=== PATIENT | female | born 1970 | race African-American/Black ===

== ENCOUNTER 2020-06-02 13:50 | Outpatient (REF) | payer MEDICAID, SELFPAY ==
--- NOTE | 2020-06-02 13:56 | MM_ITS ---
EXAMINATION: MM DIAGNOSTIC DIGITAL BREAST TOMOSYNTHESIS, BILATERAL CLINICAL INFORMATION: Due for yearly exam. Initial imaging 2017 showed fibrocystic changes and asymmetric densities for follow-up. The lifetime risk of breast cancer based on the Tyrer-Cuzick Model is 15%. COMPARISON: Mammography: 12/02/2018, 05/30/2018, 11/26/2017, 10/29/2017 (BI-RADS 0); bilateral breast ultrasound 11/26/2017, left breast ultrasound 05/30/2018. TECHNIQUE: Digital breast tomosynthesis is performed in both the craniocaudal and mediolateral oblique views along with computer-aided detection (CAD). Synthesized 2D images are generated from the tomosynthesis. FINDINGS: There are scattered areas of fibroglandular density (ACR BI-RADS breast composition Category b). Parenchymal pattern is similar to prior studies. There is no interval mass or developing density. Nodular asymmetries mid 8:00 and posterior 9:00 left breast are stable. There is no developing density in either breast. No architectural abnormality. No abnormal calcifications. The axilla and skin contours are unremarkable. Results are provided to the patient at time of visit by the technologist. IMPRESSION: No significant changes from prior studies. ASSESSMENT: BI-RADS 2: Benign RECOMMENDATION: Routine annual mammography screening. This patient's information was entered into a reminder system with a target due date for their next mammogram.
== END 2020-06-02 13:51 | disposition home or self-care (01) ==
LOC: HO.MAMMO 13:50
PROVIDERS: PCP Hospitalist; Visit Provider Hospitalist
DX: R92.8 Other abnormal and inconclusive findings on diagnostic imaging of breast (principal)
CPT/HCPCS: 77062; 77066; 78013

== ENCOUNTER 2020-07-27 12:43 | Outpatient (REF) | payer MEDICAID, SELFPAY | END 2020-07-27 12:44 | disposition home or self-care (01) | LOC: HO.MAMMO 12:43 | PROVIDERS: PCP Hospitalist; Visit Provider Hospitalist | DX: Z13.89 Encounter for screening for other disorder (principal) ==

== ENCOUNTER 2020-12-10 20:46 | Emergency (ER) | payer MEDICAID, SELFPAY ==
--- NOTE | ~2020-12-10 | CT_ITS ---
EXAMINATION: CT HEAD WITHOUT CONTRAST CLINICAL INFORMATION: Seizure, fall, pain COMPARISON: 05/01/2020 TECHNIQUE: Contiguous axial imaging was performed from the skull base to vertex without intravenous administration of contrast. This CT examination was performed using dose optimization techniques as appropriate, variously including the following: *Automated exposure control *Adjustment of mA and/or kV according to patient size (this includes techniques or standardized protocols for targeted exams where dose is matched to indication/reason for exam; i.e. extremities or head) *Use of iterative reconstruction technique DLP: 663 mGy-cm FINDINGS: There is no evidence of acute intracranial hemorrhage or territorial infarction. No abnormal mass effect or midline shift is seen. Gomez to white matter differentiation is well preserved. No extra-axial fluid collections are identified. The ventricles are normal in size. There is no abnormal attenuation within the brain parenchyma. Left parietal scalp soft tissue swelling again seen.. There is hyperostosis frontalis. No acute sinusitis. CT/CT head/brain wo con IMPRESSION: No acute intracranial pathology.
[2020-12-10 20:56] VITALS: BP 124/84; BP 149/73; PULSE 98; PULSE 99; RESP 16; TEMP 37.2; O2SAT 98; O2SAT 99; BMI 34.4
--- NOTE | 2020-12-10 21:26 | ECG_ITS ---
Test Reason : SEIZURE Blood Pressure : / mmHG Vent. Rate : 094 BPM Atrial Rate : 094 BPM P-R Int : 170 ms QRS Dur : 078 ms QT Int : 362 ms P-R-T Axes : 070 035 049 degrees QTc Int : 452 ms Normal sinus rhythm Normal ECG When compared with ECG of 01-MAY-2020 15:19, No significant change was found Referred By: Gail Choi Electronically Signed By:MIREILLE CHICAS MD
--- NOTE | 2020-12-10 21:37 | ED_ITS ---
HPI - Fall General Chief Complaint: Fall Stated Complaint: FALL Time Seen by Provider: 12/10/20 21:26 Source: patient, EMS and other Mode of arrival: EMS History of Present Illness HPI Narrative: 50-year-old female arrives from [facility] via EMS after being found on the floor in the bathroom, responsive but unable to get up and was not noted to be calling for help. As per EMS patient is currently after cognitive baseline with a history of dementia although slight increase in tremor per care 1 staff. Patient is ambulatory at baseline and was recently started on ciprofloxacin for a UTI but then according to nursing staff states that she was switched to Augmentin approximately 2-3 days ago. On review of patient's medication list she is on multiple anti seizure medications and on speaking with the patient she denies pain anywhere except for mild pain at the back of her head, denies neck pain, chest pain, shortness of breath but states that she feels a little bit off. She is unable to verbalize whether or not this is how she feels after a seizure. Related Data Allergies Allergy/AdvReac Type Severity Reaction Status Date / Time chlorpromazine Allergy Intermediate HIVES Verified 12/10/20 21:05 [CHLORPROMAZINE] Review of Systems Review of Systems: Pertinent positives and negatives as stated in HPI 10 point review of systems is otherwise negative. PMFSH Past Medical History Source: nursing notes reviewed Medical History Diabetes Hyperlipidemia Hypothyroid Seizure disorder Unspecified dementia with behavioral disturbance Social History Social History Advance Directives: No Advance Directives Information Provided: No Physical Exam Vital Signs: Vital Signs: Last Vital Signs Temp 98.7 F 12/11/20 01:14 Pulse 81 12/11/20 01:14 Resp 16 12/11/20 01:14 BP 153/82 H 12/11/20 01:14 Pulse Ox 100 12/11/20 01:14 Body Mass Index 34.4 VITAL SIGNS: Reviewed. GENERAL: Chronically ill, well nourished, in no acute distress. HEAD: Normocephalic/atraumatic, EYES: PERRLA, EOMI intact without pain, no nystagmus NOSE: Nares patent bilateral OROPHARYNX: no oral lesions noted, posterior pharynx clear NECK: Supple, no adenopathy LUNGS: Normal breath sounds. No adventitious sounds or accessory muscle use. SpO2<98> CARDIOVASCULAR: Regular rate and rhythm without noted murmurs ABDOMEN: Soft, non-tender, non-distended with bowel sounds. NEUROLOGIC: Drowsy and oriented x 2. Strength and sensation to light touch were grossly intact x 4, no facial asymmetry, no pronator drift, cranial nerves 2-12 grossly intact. Course Course Course Narrative: 50-year-old female with history and clinical presentation most suggestive of post- ictal after seizure. Suspect that this may be due to drug drug interaction between the ciprofloxacin and multiple other medications. Will rule out metabolic or infectious etiologies. Review of all investigations negative for evidence of metabolic or infectious etiologies. Suspect that patient was postictal on arrival and mentation has improved during her stay here in the emergency department. Patient was ambu lated at bedside without difficulty and the Dilantin level is noted to be mildly elevated which may be a reflection of patient having been on ciprofloxacin. She is otherwise stable for discharge back to the facility with instructions that her Keppra level should be followed as it is still pending. MDM - Fall Lab Data Result diagrams: 12/10/20 21:47 12/10/20 23:26 Labs: Lab Results 12/10/20 12/10/20 12/10/20 Range/Units 21:47 23:26 23:52 WBC 5.7 (4.8-10.8) X10*3/uL RBC 3.82 L (4.20-5.50) X10*6/uL Hgb 10.6 L (12.0-16.0) g/dl Hct 33.6 L (37-47) % MCV 88.0 (80-98) fL MCH 27.7 (27.0-33.0) pg MCHC 31.5 (31.0-35.0) g/dl RDW 14.6 (11.0-16.0) % Plt Count 230 (160-400) X10*3/uL MPV 10.3 (9.4-12.3) fL Immature Gran % (Auto) 0.2 (0.0-0.4) % Neut % (Auto) 65.1 (45-73) % Lymph % (Auto) 27.6 (20-40) % Edmonson % (Auto) 6.5 (2-11) % Eos % (Auto) 0.2 (0-4) % Baso % (Auto) 0.4 (0-2) % Lymph # (Auto) 1.6 (1.2-4.9) X10*3/uL Edmonson # (Auto) 0.4 (0.1-1.2) X10*3/uL Eos # (Auto) 0.0 (0.0-0.4) X10*3/uL Baso # (Auto) 0.0 (0.0-0.2) X10*3/uL Abs Immat Gran (auto) 0.01 (0.00-0.03) X10*3/uL Absolute Neuts (auto) 3.7 (2.0-8.3) X10*3/uL Absolute Nucleated RBC 0.000 (0.0-0.012) X10*3/uL Nucleated RBC % (auto) 0.0 (0.0-0.2) /100WBC Sodium 139 (135-145) mmol/L Potassium 5.3 H (3.3-5.1) mmol/L Chloride 103 (96-108) mmol/L Carbon Dioxide 26 (22-29) mmol/L Anion Gap 15 (12-20) BUN 24 H (9-16) mg/dL Creatinine 0.88 (0.5-1.4) mg/dL Estim Creat Clear Calc 98.0 Estimated GFR > 60 Random Glucose 144 H (60-115) mg/dL Calcium 9.5 (8.4-10.2) mg/dL Total Bilirubin < 0.2 (0.0-1.0) mg/dL AST 15 (5-31) U/L ALT 15 (0-31) U/L Alkaline Phosphatase 188 H (39-117) U/L Total Protein 7.8 (6.5-8.0) g/dL Albumin 3.9 (3.5-5.0) g/dL TSH 1.86 (0.32-4.0) uIU/mL Urine Color STRAW Urine Appearance CLEAR Urine pH 5.5 (5.0-8.0) Ur Specific Decker 1.025 (1.005-1.025) Urine Protein NEG (NEG-TRACE) MG/DL Urine Glucose (UA) NEG (NEG) MG/DL Urine Ketones NEG (NEG) MG/DL Urine Blood 1+ H (NEG) Urine Nitrite NEG (NEG) Ur Leukocyte Esterase NEG (NEG) Urine RBC 1-4 (0) /HPF Urine WBC 1-4 (0-4) /HPF Ur Squamous Epith Cells TRACE /LPF Urine Bacteria NONE /LPF Urine Mucus TRACE /LPF Phenytoin 20.9 H (10.0-20.0) ug/mL ECG Data Attestation: I personally reviewed and interpreted this ECG as follows: Prior ECG tracings: available for review (05/01/2020 no acute changes on comparison) Interpretation: Normal sinus rhythm, HR-94, no evidence of acute ischemia, NE/QRS/QTC are within normal limits. Discharge Plan Discharge Clinical Impression: Seizure, Adverse drug interaction Patient Disposition: er [facility] Instructions: Nonepileptic Seizures (ED) Additional Instructions: 1. Resume all home medications as prescribed. 2. Follow-up Keppra levels as they are still pending. 3. Recommend repeating Dilantin levels 4. Re-evaluation by primary care physician within 24 hours. Return to the emergency department for any acute worsening of symptoms. Referrals: Roby Roth DO [Primary Care Provider] - 2 days (Re-evaluation after suspected seizure activity no evidence to suggest metabolic or infectious etiologies. Dilantin level was mildly elevated and Keppra level is pending.)
[2020-12-10 21:54] LABS: MANUAL DIFF FLAG NO
[2020-12-10 21:55] LABS: Basophils Percent Auto 0.4 % (0-2); Eosinophils Percent Auto 0.2 % (0-4); Hematocrit 33.6 % (37-47); Hemoglobin 10.6 g/dl (12.0-16.0); Imm Gran Abs Auto 0.01 X10*3/uL (0.00-0.03); Imm Gran Pct Auto 0.2 % (0.0-0.4); Lymphocytes Absolute Auto 1.6 X10*3/uL (1.2-4.9); Lymphocytes Percent Auto 27.6 % (20-40); Mean Corpuscular HGB Conc 31.5 g/dl (31.0-35.0); Mean Corpuscular Hemoglobin 27.7 pg (27.0-33.0); Mean Platelet Volume 10.3 fL (9.4-12.3); Monocytes Absolute Auto 0.4 X10*3/uL (0.1-1.2); Monocytes Percent Auto 6.5 % (2-11); Neutrophils Absolute Auto 3.7 X10*3/uL (2.0-8.3); Neutrophils Percent Auto 65.1 % (45-73); Platelet Count 230 X10*3/uL (160-400); Red Blood Count 3.82 X10*6/uL (4.20-5.50); Red Cell Distribution Width 14.6 % (11.0-16.0); White Blood Count 5.7 X10*3/uL (4.8-10.8)
--- NOTE | 2020-12-10 23:01 | PC.NURSE ---
spoke with rn at [facility]. pt was found to be confused on the floor of the bathroom. Had been feeling off all day. arrived to ED in a drowsy, but arousable state.
[2020-12-10 23:02] VITALS: BP 126/71; PULSE 90; RESP 14; O2SAT 96
[2020-12-10 23:27] VITALS: BP 134/77; PULSE 90; RESP 14; O2SAT 99
--- NOTE | 2020-12-10 23:29 | PC.NURSE ---
Report taken from Maura, this RN resuming care. Pt found laying in bed, appears drowsy, having difficulty staying awake. Maura at bedside trying to obtain ordered labs, pt uncooperative with bloodwork, stating You guys are just using me for practice! This isn't fair. This RN explaing to pt that she has every right to refuse blood work if she does not want it. Pt then replied, I'm here for my health so do it. Labs obtained and sent. VSS at this time, awaiting lab work. Continue to monitor.
[2020-12-10 23:32] VITALS: BP 134/77; PULSE 88; RESP 15; TEMP 37.2; O2SAT 100
[2020-12-10 23:53] VITALS: TEMP 36.6
--- NOTE | 2020-12-10 23:57 | PC.NURSE ---
UA obtained via straight cath and sent for analysis.
[2020-12-11 00:02] LABS: Alanine Aminotransferase 15 U/L (0-31); Albumin Level 3.9 g/dL (3.5-5.0); Alkaline Phosphatase 188 U/L (39-117); Anion Gap 15 (12-20); Aspartate Amino Transferase 15 U/L (5-31); Bilirubin Total < 0.2 mg/dL (0.0-1.0); Blood Urea Nitrogen 24 mg/dL (9-16); Calcium 9.5 mg/dL (8.4-10.2); Carbon Dioxide 26 mmol/L (22-29); Chloride 103 mmol/L (96-108); Estimated Glomerular Filt Rate > 60; Glucose Random 144 mg/dL (60-115); Potassium 5.3 mmol/L (3.3-5.1); Sodium 139 mmol/L (135-145); Total Protein 7.8 g/dL (6.5-8.0)
[2020-12-11 00:05] LABS: Phenytoin Dilantin 20.9 ug/mL (10.0-20.0)
[2020-12-11 00:16] LABS: Glucose Urine UA NEG (NEG); Leukocyte Esterase Urine NEG (NEG); Nitrite Urine NEG (NEG); PH 5.5 (5.0-8.0); Specific Gravity - Urine 1.025 (1.005-1.025); Urine Blood 1+ (NEG); Urine Ketones NEG (NEG); Urine Protein NEG (NEG-TRACE)
[2020-12-11 00:19] LABS: Appearance Urine CLEAR; Color Urine STRAW
--- NOTE | 2020-12-11 00:19 | PC.NURSE ---
Pt requesting food/drink, provided with PO intake per request.
[2020-12-11 00:21] LABS: TSH reflex Free T4 1.86 uIU/mL (0.32-4.0)
[2020-12-11 00:25] LABS: Mucus Urine TRACE /LPF; Squamous Epithelial Cell Urine TRACE /LPF
[2020-12-11 01:14] VITALS: BP 153/82; PULSE 81; RESP 16; TEMP 37.1; O2SAT 100
--- NOTE | 2020-12-11 01:14 | PC.NURSE ---
Per MD request, pt ambulating in the halls with a two assist. Pts gait noted to be unsteady but pt ambulating without assistance. Plan to return to [facility] via ambulance.
--- NOTE | 2020-12-11 01:34 | PC.NURSE ---
Nurse to Nurse report given to [facility] regarding pts condition and plan to return.
--- NOTE | 2020-12-11 01:48 | PC.NURSE ---
EMS at bedside preparing pt for transport.
[2020-12-14 14:07] LABS: Levetiracetam Keppra 29.7 mcg/mL (12.0-46.0)
== END 2020-12-11 01:49 | disposition skilled nursing facility (03) ==
PROVIDERS: Emergency Provider Student in an Organized Health Care Education/Training Program; PCP Hospitalist
DX: R56.9 Unspecified convulsions (principal); T50.995A Adverse effect of other drugs, medicaments and biological substances, initial encounter; Y92.122 Bedroom in nursing home as the place of occurrence of the external cause; E11.9 Type 2 diabetes mellitus without complications; E78.5 Hyperlipidemia, unspecified; G30.9 Alzheimer's disease, unspecified; F02.80 Dementia in other diseases classified elsewhere, unspecified severity, without behavioral disturbance, psychotic disturbance, mood disturbance, and anxiety; Z79.899 Other long term (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
CPT/HCPCS: 36415; 51701; 70450; 80053; 80177; 80185; 81001; 84443; 85025; 93005; 99285

== ENCOUNTER 2021-01-24 13:45 | Emergency (ER) | payer MEDICAID, SELFPAY ==
--- NOTE | ~2021-01-24 | XR_ITS ---
EXAMINATION: XR CHEST CLINICAL INFORMATION: Seizure, fall, AMS COMPARISON: None TECHNIQUE: 2 views of the chest were obtained. FINDINGS: No significant abnormality is noted involving the heart, lungs, mediastinum, bony thorax or soft tissues. XR/XR chest 2V IMPRESSION: Unremarkable chest examination.
--- NOTE | ~2021-01-24 | CT_ITS ---
EXAMINATION: CT HEAD WITHOUT CONTRAST CLINICAL INFORMATION: Acute mental status change. Seizure. COMPARISON: Previous head CT scans most recent November 2020 TECHNIQUE: Contiguous axial imaging was performed from the skull base to vertex without intravenous administration of contrast. This CT examination was performed using dose optimization techniques as appropriate, variously including the following: *Automated exposure control *Adjustment of mA and/or kV according to patient size (this includes techniques or standardized protocols for targeted exams where dose is matched to indication/reason for exam; i.e. extremities or head) *Use of iterative reconstruction technique DLP: 666 mGy-cm FINDINGS: There is no evidence of an extra-axial collection. There is no evidence of intra-axial or extra-axial hemorrhage. The ventricles and extra-axial CSF spaces are appropriate. Gomez-white matter differentiation is normal. No mass, mass effect or infarct is seen. There is hyperostosis frontalis. There is soft tissue thickening over the left parietal bone that is unchanged. Bony structures are otherwise unremarkable. No skull fracture is seen. The mastoid air cells and middle ears and paranasal sinuses are clear. CT/CT head/brain wo con IMPRESSION: No acute intracranial pathology.
--- NOTE | ~2021-01-24 | CT_ITS ---
EXAMINATION: CT CERVICAL SPINE WITHOUT CONTRAST CLINICAL INFORMATION: Acute mental status change. Seizure. COMPARISON: Previous CT of the cervical spine April 2020 TECHNIQUE: Axial images through the cervical spine without contrast. Sagittal and pelvis workstation. Gomez per centimeter. This CT examination was performed using dose optimization techniques as appropriate, variously including the following: *Automated exposure control *Adjustment of mA and/or kV according to patient size (this includes techniques or standardized protocols for targeted exams where dose is matched to indication/reason for exam; i.e. extremities or head) *Use of iterative reconstruction technique DLP: 666 mGy-cm FINDINGS: Bone alignment is normal. No fracture or dislocation is seen. There is evidence of mild degenerative spondylosis from C4-C5 to C6-C7. Disc spaces are normal. Soft tissues are normal. There is shotty cervical lymphadenopathy. The visualized lung apices are either. CT/CT cervical spine wo con IMPRESSION: No fracture or dislocation seen. Mild degenerative changes.
[2021-01-24 13:57] VITALS: BP 163/75; PULSE 103; RESP 18; TEMP 37.1; O2SAT 97; BMI 25.0
--- NOTE | 2021-01-24 14:02 | ECG_ITS ---
Test Reason : SEIZURE Blood Pressure : / mmHG Vent. Rate : 093 BPM Atrial Rate : 093 BPM P-R Int : 170 ms QRS Dur : 074 ms QT Int : 370 ms P-R-T Axes : 076 012 041 degrees QTc Int : 460 ms Normal sinus rhythm Normal ECG When compared with ECG of 10-DEC-2020 22:44, No significant change was found Referred By: Hope Santiago Electronically Signed By:MIREILLE CHICAS MD
--- NOTE | 2021-01-24 14:26 | ED.SEIZURE ---
HPI - Seizure General Chief Complaint: Seizure Stated Complaint: FALL, NO INJURIES Time Seen by Provider: 01/24/21 13:55 Source: patient, EMS and other ([facility]) Mode of arrival: EMS Limitations: altered mental status History of Present Illness HPI Narrative: 50-year-old female coming from [facility] with a past medical history of chief subarachnoid hemorrhage, TBI, dementia, seizure disorder, mood disorder, anxiety, diabetes, hypertension, hyperlipidemia, hypothyroidism here after reports of witnessed seizure at longterm with fall hitting the back of her head. Per nursing this occurred sometime this morning. He also told me the patient is at her baseline. She is not on any anticoagulation. She is on Keppra, phenytoin and oxcarbazepine which are dispensed by nursing and the patient has been taking. No recent illnesses Seizure History: Yes Place: Home Related Data Allergies Allergy/AdvReac Type Severity Reaction Status Date / Time chlorpromazine Allergy Intermediate HIVES Verified 12/10/20 21:05 [CHLORPROMAZINE] Review of Systems Review of Systems: Yes Unobtainable due to mental status (unable to obtain d/t baseline confusion) Neurologic: Denies Abnormal speech present [facility] Past Medical History Attestation statement: The following information was validated with the patient. Source: old records reviewed and nursing notes reviewed Medical History Diabetes Hyperlipidemia Hypothyroid Seizure disorder Unspecified dementia with behavioral disturbance Social History Social History Alcohol intake: never Smoked in Last 30 Days: No Use of substances other than those prescribed or required for medical reasons: No Advance Directives: No Advance Directives Information Provided: Yes Patient : No Physical Exam Vital Signs: Vital Signs: Last Vital Signs Temp 98.7 F 01/24/21 13:57 Pulse 103 H 01/24/21 13:57 Resp 18 01/24/21 13:57 BP 163/75 H 01/24/21 13:57 Pulse Ox 97 01/24/21 13:57 Body Mass Index 25.0 Const: General: comfortable, alert and awake Orientation/consciousness: oriented to person Limitations: altered mental status (Limited due to confusion) HENMT: Head: Yes normal to inspection Ears: hearing grossly normal bilaterally General nose exam: Normal external nose present Face and sinus: Yes normal facial exam Mouth: Normal oral and palatal mucosa present Throat: Yes posterior oropharynx normal Eyes: General: appearance normal, both eyes and all related structures Pupils: Equal, round and reactive pupils present Neck: Other: No midline tenderness, step-offs or deformities Neck: Yes normal visual inspection, Yes full ROM and Yes no lymphadenopathy Chest: Chest palpation & inspection: normal inspection of the chest Resp: Effort & Inspection: normal respiratory effort Auscultation: clear to auscultation bilaterally Cardio: Rate: regular rate Rhythm: regular rhythm Peripheral pulses: Peripheral pulses 2+ throughout GI: Inspection: Yes normal to inspection Palpation (GI): Soft to palpation and nontender Auscultation: normal bowel sounds Back/Spine/Pelvis: Thoracic/Lumbar Spine: thoracic and lumbar spine normal to inspection Skin: General skin exam: no rashes or lesions noted Neuro: General: oriented to person, tone normal, moves all extremities and normal sensation to monofilament Cranial nerves: Yes Equal, round and reactive pupils present Speech: No Abnormal speech present Extrem: General: Yes normal to inspection, Yes no pedal edema and Yes no calf tenderness Course Course Course Narrative: 50-year-old female here after witnessed seizure with fall and head strike. Per staff patient is at her baseline confusion. On my assessment she is awake, alert and oriented to person only. She has no overt neuro deficits outside of confusion. No physical complaints. Hemodynamically stable. Per nursing patient is sent for CT of head. Will check labs, drug levels, UA, EKG, CXR and CT head/neck. 1530-Imaging pending. Refusing all labs. Will discuss with PCP once imaging back. 1610-imaging all unremarkable. Patient refusing labs and urine collection. Will discuss with primary care doctor as she is a resident at [facility]. 1645-discussed with Dr. kamara. Does not need labs. Will accept transfer back. History epilepsy on multiple anti epileptics intermittently compliant with medication. Will follow with levels there. MDM - Seizure Differential Diagnosis Differential diagnosis: Likely generalized seizure and epileptic seizure Medical Records Attestation: I reviewed the patient's medical records. Lab Data Attestation: I reviewed the patient's lab results. Imaging Data Chest x-ray: Attestation: I personally reviewed and interpreted this imaging study as follows: Radiologist's impression: [address] [place], [place] [id number] ReportSigned Patient: Katelyn PeraltaMR#: [id number]: [id number]:[id number]/Sex: 50 / FADM Date: 01/24/21Loc: HO.EDAttending Dr: Ordering Physician: NIMESH STEEL NP Date of Service: 01/24/21 Procedure(s): XR chest 2V Accession Number(s): [id number] cc: NIMESH STEEL NP~ EXAMINATION: XR CHEST CLINICAL INFORMATION: Seizure, fall, AMS COMPARISON: None TECHNIQUE: 2 views of the chest were obtained. FINDINGS: No significant abnormality is noted involving the heart, lungs, mediastinum, bony thorax or soft tissues. XR/XR chest 2V IMPRESSION: Unremarkable chest examination. CT scan - head: Attestation: I personally reviewed and interpreted this imaging study as follows: Radiologist's impression: EXAMINATION: CT HEAD WITHOUT CONTRAST CLINICAL INFORMATION: Acute mental status change. Seizure. COMPARISON: Previous head CT scans most recent November 2020 TECHNIQUE: Contiguous axial imaging was performed from the skull base to vertex without intravenous administration of contrast. This CT examination was performed using dose optimization techniques as appropriate, variously including the following: *Automated exposure control *Adjustment of mA and/or kV according to patient size (this includes techniques or standardized protocols for targeted exams where dose is matched to indication/reason for exam; i.e. extremities or head) *Use of iterative reconstruction technique DLP: 666 mGy-cm FINDINGS: There is no evidence of an extra-axial collection. There is no evidence of intra-axial or extra-axial hemorrhage. The ventricles and extra-axial CSF spaces are appropriate. Gomez-white matter differentiation is normal. No mass, mass effect or infarct is seen. There is hyperostosis frontalis. There is soft tissue thickening over the left parietal bone that is unchanged. Bony structures are otherwise unremarkable. No skull fracture is seen. The mastoid air cells and middle ears and paranasal sinuses are clear. CT/CT head/brain wo con IMPRESSION: No acute intracranial pathology. Ct cervical spine: Attestation: I personally reviewed and interpreted this imaging study as follows: Radiologist's impression: EXAMINATION: CT CERVICAL SPINE WITHOUT CONTRAST CLINICAL INFORMATION: Acute mental status change. Seizure. COMPARISON: Previous CT of the cervical spine April 2020 TECHNIQUE: Axial images through the cervical spine without contrast. Sagittal and pelvis workstation. Gomez per centimeter. This CT examination was performed using dose optimization techniques as appropriate, variously including the following: *Automated exposure control *Adjustment of mA and/or kV according to patient size (this includes techniques or standardized protocols for targeted exams where dose is matched to indication/reason for exam; i.e. extremities or head) *Use of iterative reconstruction technique DLP: 666 mGy-cm FINDINGS: Bone alignment is normal. No fracture or dislocation is seen. There is evidence of mild degenerative spondylosis from C4-C5 to C6-C7. Disc spaces are normal. Soft tissues are normal. There is shotty cervical lymphadenopathy. The visualized lung apices are either. CT/CT cervical spine wo con IMPRESSION: No fracture or dislocation seen. Mild degenerative changes. ECG Data Attestation: I personally reviewed and interpreted this ECG as follows: ECG interpretation date: 01/24/21 ECG interpretation time: 14:25 Interpretation: Normal sinus rhythm with a rate of 93, normal PA, normal QRS, normal QT Discharge Plan Discharge Clinical Impression: Epileptic seizure Patient Disposition: [facility] Instructions: Epilepsy (ED) Interventions: ED Discharge Assessment Last Done: 01/24/21 16:30 Discharge Date/Time: 01/24/21 16:53
--- NOTE | 2021-01-24 15:06 | PC.NURSE ---
PT REFUSING BLOOD DRAW AT THIS TIME, STATING THAT THERE HAS BEEN TOO MUCH BLOOD TAKEN ALREADY. NO BLOOD DRAW HAS BEEN DONE IN THE ER TODAY.
--- NOTE | 2021-01-24 15:23 | PC.NURSE ---
pt continues to refuse labs-registered dental assistant rda aware
--- NOTE | 2021-01-24 16:47 | PC.NURSE ---
attempt to call [facility], states they are busy on other line and will call back for report
== END 2021-01-24 16:53 | disposition skilled nursing facility (03) ==
PROVIDERS: Emergency Provider Emergency Medicine; PCP Hospitalist
DX: G40.909 Epilepsy, unspecified, not intractable, without status epilepticus (principal); E11.9 Type 2 diabetes mellitus without complications; I10 Essential (primary) hypertension; E78.5 Hyperlipidemia, unspecified; F03.91 Unspecified dementia, unspecified severity, with behavioral disturbance; Z87.820 Personal history of traumatic brain injury; Z79.899 Other long term (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
CPT/HCPCS: 70450; 71046; 72125; 93005; 99284

== ENCOUNTER 2021-03-15 12:52 | Outpatient (REF) | payer MEDICAID, SELFPAY ==
--- NOTE | ~2021-03-15 | MM_ITS ---
EXAMINATION: MM DIAGNOSTIC DIGITAL BREAST TOMOSYNTHESIS, BILATERAL US DIAGNOSTIC ULTRASOUND BREAST, RIGHT CLINICAL INFORMATION: Intermittent right breast pain. Due for yearly. Family history breast cancer, mother. The lifetime risk of breast cancer based on the Tyrer-Cuzick Model is 13%. COMPARISON: Mammography: 06/02/2020, 12/02/2018, 05/30/2018, 11/26/2017, 10/29/2017 TECHNIQUE: Digital breast tomosynthesis is performed in both the craniocaudal and mediolateral oblique views along with computer-aided detection (CAD). Synthesized 2D images are generated from the tomosynthesis. Additional right MLO and spot right MLO views are obtained. Ultrasound right breast is targeted to the 4 quadrants. Grayscale imaging and color Doppler are performed without and with harmonics. FINDINGS: There are scattered areas of fibroglandular density (ACR BI-RADS breast composition Category b). Parenchymal pattern is similar to prior exams. No developing density or interval mass or architectural abnormality. Nodular asymmetry mid and posterior medial left breast are stable from prior studies. There is a small stable circumscribed nodule mid outer right breast corresponding to an intramammary node on ultrasound. There are no abnormal calcifications. The skin contours are smooth. No skin thickening or coarsening of the Tarik's ligaments. Ultrasound right breast demonstrates no cystic or solid mass or architectural abnormality. There is no focal duct ectasia, skin thickening, or edema tracking in the soft tissue planes. Incidental intramammary node present mid 8:00 right breast under 1 cm. Results are discussed with the patient at time of visit. MM/MM tomosynthesis diagnostic BI IMPRESSION: No mammographic or ultrasound evidence of malignancy or inflammatory changes. ASSESSMENT: BI-RADS 2: Benign RECOMMENDATION: 1. Patient's breast pain should be managed based on the clinical impression. 2. Otherwise, routine annual screening mammography. This patient's information was entered into a reminder system with a target due date for their next mammogram.
== END 2021-03-15 12:53 | disposition home or self-care (01) ==
LOC: HO.MAMMO 12:52
PROVIDERS: Visit Provider Hospitalist
DX: N64.4 Mastodynia (principal)
CPT/HCPCS: 76642; 77062; 77066

== ENCOUNTER 2021-03-19 14:01 | Inpatient (IN) | payer MEDICAID, SELFPAY ==
[2021-03-19] VITALS (7 sets, daily range): BP systolic 116–146; BP diastolic 55–78; PULSE 72–80; RESP 15–21; TEMP 34.4–35.9; O2SAT 96–99; BMI 35.9
[2021-03-19 14:28] LABS: Glucose, Whole Blood 107 mg/dL (60-115)
--- NOTE | 2021-03-19 14:33 | PC.NURSE ---
Rectal temp low. Bear hugger applied to pt. Other VSS at this time.
--- NOTE | 2021-03-19 15:49 | ED_ITS ---
HPI - General Adult General Chief complaint: Altered Mental Status Stated complaint: UTI ON 03/17 NO AMS Time Seen by Provider: 03/19/21 14:48 Source: patient and EMS Mode of arrival: EMS Limitations: no limitations History of Present Illness HPI narrative: Patient's history of traumatic brain injury anxiety mood disorder frequent hypothermia secondary to COVID infection came from custodial for feeling weak and chills and lethargy for last 3 days patient was treated with Macrobid for UTI, UA done on 03/15 showed ESBL E coli sensitive to Macrobid on arrival patient's rectal temperature was 94 degrees patient does have hypothermia often secondary to COVID infection Related Data Allergies Allergy/AdvReac Type Severity Reaction Status Date / Time chlorpromazine Allergy Intermediate HIVES Verified 12/10/20 21:05 [CHLORPROMAZINE] Review of Systems Review of Systems: Constitutional : No Weight loss, No Fever, + Chills ENT/Mouth : No sore throat, No Rhinorrhea Eyes: No Eye Pain, No Swelling Cardiovascular : No Chest Pain, no palpitations Respiratory : No Cough, No Sputum, no shortness of breath Gastrointestinal : no Nausea, No Vomiting, No Diarrhea, No abdominal Pain, no black stools Genitourinary : No Dysuria, +Urinary Frequency Musculoskeletal : No joint pain, No Myalgias, No Joint Swelling Skin : No Skin Lesions, No rash Neuro : +Weakness, No Numbness, No Dizziness, No Headache Psych : No Anxiety/Panic, No Depression Heme/Lymph: No Bruising, No Lymphadenopathy Endocrine : No Polyuria, No Polydipsia All other systems reviewed and are negative [facility] Past Medical History Medical History Diabetes Hyperlipidemia Hypothyroid Seizure disorder Unspecified dementia with behavioral disturbance Social History Social History Alcohol intake: never Advance Directives: Yes Advance Directives Information Provided: Yes Advance Directives on File: No Patient : No Physical Exam Vital Signs: Vital Signs: Last Vital Signs Temp 96.6 F L 03/19/21 19:25 Pulse 76 03/19/21 20:52 Resp 16 03/19/21 20:52 BP 125/61 03/19/21 20:52 Pulse Ox 96 03/19/21 20:52 Body Mass Index 35.9 Appearance: Alert. Oriented X3. Anxious Eyes: PERRLA, No Nystagmus ENT: Pharynx normal. Oral Mucosa moist Neck: Normal inspection. Neck supple. CVS: Normal heart rate and rhythm. Pulses normal. Respiratory: No respiratory distress. Equal air entry bilateral, no wheezing/rales/rhonchi Abdomen: Soft and nontender. Bowel sounds are present, no mass palpable, no CVA tenderness Skin: Skin warm and dry. Normal skin color. Normal skin turgor. Extremities: No lower extremity edema. No calf tenderness Neuro: Oriented X 3. No motor deficit. Medical Decision Making MDM Narrative Medical decision making narrative: Patient with history of hypothermia secondary to COVID-19 infection came for increased lethargic and chills noticed to have UTI with E coli ESBL positive in the custodial labs patient refused to get the urine sample in the ER. Started on ertapenem. Received IV fluids , patient hypothermia is chronic secondary to COVID-19 infection. Patient's potassium was 8.4 on arrival 2nd to sample hemolyzed repeat potassium was 5.9 creatinine is 0.94 . No EKG changes of hyperkalemia will give her calcium gluconate IV admit for IV antibiotics patient had COVID-19 test done in the custodial today was negative Lab Data Lab results reviewed: Yes I reviewed the patient's lab results. Result diagrams: 03/19/21 18:12 03/19/21 21:10 Labs: Lab Results 03/19/21 03/19/21 03/19/21 Range/Units 14:23 15:42 18:12 WBC 6.4 (4.8-10.8) X10*3/uL RBC 3.20 L (4.20-5.50) X10*6/uL Hgb 9.0 L (12.0-16.0) g/dl Hct 28.4 L (37-47) % MCV 88.8 (80-98) fL MCH 28.1 (27.0-33.0) pg MCHC 31.7 (31.0-35.0) g/dl RDW 15.1 (11.0-16.0) % Plt Count 182 (160-400) X10*3/uL MPV 10.7 (9.4-12.3) fL Immature Gran % (Auto) 0.3 (0.0-0.4) % Neut % (Auto) 76.9 H (45-73) % Lymph % (Auto) 12.9 L (20-40) % White % (Auto) 9.5 (2-11) % Eos % (Auto) 0.2 (0-4) % Baso % (Auto) 0.2 (0-2) % Lymph # (Auto) 0.8 L (1.2-4.9) X10*3/uL White # (Auto) 0.6 (0.1-1.2) X10*3/uL Eos # (Auto) 0.0 (0.0-0.4) X10*3/uL Baso # (Auto) 0.0 (0.0-0.2) X10*3/uL Abs Immat Gran (auto) 0.02 (0.00-0.03) X10*3/uL Absolute Neuts (auto) 4.9 (2.0-8.3) X10*3/uL Absolute Nucleated RBC 0.000 (0.0-0.012) X10*3/uL Nucleated RBC % (auto) 0.0 (0.0-0.2) /100WBC Sodium (135-145) mmol/L Potassium (3.3-5.1) mmol/L Chloride (96-108) mmol/L Carbon Dioxide (22-29) mmol/L Anion Gap (12-20) BUN (9-16) mg/dL Creatinine (0.5-1.4) mg/dL Estim Creat Clear Calc Estimated GFR POC Glucose 107 (60-115) mg/dL Random Glucose (60-115) mg/dL Lactic Acid (0.5-2.0) mmol/L Lactic Acid Fup @ 2Hr (0.5-2.0) mmol/L Calcium (8.4-10.2) mg/dL Total Bilirubin (0.0-1.0) mg/dL Direct Bilirubin (0.0-0.5) mg/dL AST (5-31) U/L ALT (0-31) U/L Alkaline Phosphatase (39-117) U/L Total Protein (6.5-8.0) g/dL Albumin (3.5-5.0) g/dL COVID-19 (ELIZ) Negative (Negative) COVID-19 Clin Com See Note 03/19/21 03/19/21 03/19/21 Range/Units 18:12 18:12 18:12 WBC (4.8-10.8) X10*3/uL RBC (4.20-5.50) X10*6/uL Hgb (12.0-16.0) g/dl Hct (37-47) % MCV (80-98) fL MCH (27.0-33.0) pg MCHC (31.0-35.0) g/dl RDW (11.0-16.0) % Plt Count (160-400) X10*3/uL MPV (9.4-12.3) fL Immature Gran % (Auto) (0.0-0.4) % Neut % (Auto) (45-73) % Lymph % (Auto) (20-40) % White % (Auto) (2-11) % Eos % (Auto) (0-4) % Baso % (Auto) (0-2) % Lymph # (Auto) (1.2-4.9) X10*3/uL White # (Auto) (0.1-1.2) X10*3/uL Eos # (Auto) (0.0-0.4) X10*3/uL Baso # (Auto) (0.0-0.2) X10*3/uL Abs Immat Gran (auto) (0.00-0.03) X10*3/uL Absolute Neuts (auto) (2.0-8.3) X10*3/uL Absolute Nucleated RBC (0.0-0.012) X10*3/uL Nucleated RBC % (auto) (0.0-0.2) /100WBC Sodium 140 (135-145) mmol/L Potassium 8.4 H* D (3.3-5.1) mmol/L Chloride 109 H (96-108) mmol/L Carbon Dioxide 19 L (22-29) mmol/L Anion Gap 20 (12-20) BUN 24 H (9-16) mg/dL Creatinine 0.96 (0.5-1.4) mg/dL Estim Creat Clear Calc 91.8 Estimated GFR > 60 POC Glucose (60-115) mg/dL Random Glucose 66 D (60-115) mg/dL Lactic Acid 2.4 H* (0.5-2.0) mmol/L Lactic Acid Fup @ 2Hr (0.5-2.0) mmol/L Calcium 9.3 (8.4-10.2) mg/dL Total Bilirubin 0.2 (0.0-1.0) mg/dL Direct Bilirubin < 0.2 (0.0-0.5) mg/dL AST 37 H D (5-31) U/L ALT 21 (0-31) U/L Alkaline Phosphatase 195 H (39-117) U/L Total Protein 8.7 H (6.5-8.0) g/dL Albumin 4.0 (3.5-5.0) g/dL COVID-19 (ELIZ) (Negative) COVID-19 Clin Com 03/19/21 03/19/21 03/19/21 Range/Units 19:30 19:38 19:47 WBC (4.8-10.8) X10*3/uL RBC (4.20-5.50) X10*6/uL Hgb (12.0-16.0) g/dl Hct (37-47) % MCV (80-98) fL MCH (27.0-33.0) pg MCHC (31.0-35.0) g/dl RDW (11.0-16.0) % Plt Count (160-400) X10*3/uL MPV (9.4-12.3) fL Immature Gran % (Auto) (0.0-0.4) % Neut % (Auto) (45-73) % Lymph % (Auto) (20-40) % White % (Auto) (2-11) % Eos % (Auto) (0-4) % Baso % (Auto) (0-2) % Lymph # (Auto) (1.2-4.9) X10*3/uL White # (Auto) (0.1-1.2) X10*3/uL Eos # (Auto) (0.0-0.4) X10*3/uL Baso # (Auto) (0.0-0.2) X10*3/uL Abs Immat Gran (auto) (0.00-0.03) X10*3/uL Absolute Neuts (auto) (2.0-8.3) X10*3/uL Absolute Nucleated RBC (0.0-0.012) X10*3/uL Nucleated RBC % (auto) (0.0-0.2) /100WBC Sodium (135-145) mmol/L Potassium (3.3-5.1) mmol/L Chloride (96-108) mmol/L Carbon Dioxide (22-29) mmol/L Anion Gap (12-20) BUN (9-16) mg/dL Creatinine (0.5-1.4) mg/dL Estim Creat Clear Calc Estimated GFR POC Glucose 58 L* 60 59 L* (60-115) mg/dL Random Glucose (60-115) mg/dL Lactic Acid (0.5-2.0) mmol/L Lactic Acid Fup @ 2Hr (0.5-2.0) mmol/L Calcium (8.4-10.2) mg/dL Total Bilirubin (0.0-1.0) mg/dL Direct Bilirubin (0.0-0.5) mg/dL AST (5-31) U/L ALT (0-31) U/L Alkaline Phosphatase (39-117) U/L Total Protein (6.5-8.0) g/dL Albumin (3.5-5.0) g/dL COVID-19 (ELIZ) (Negative) COVID-19 Clin Com 03/19/21 03/19/21 03/19/21 Range/Units 20:02 20:17 20:46 WBC (4.8-10.8) X10*3/uL RBC (4.20-5.50) X10*6/uL Hgb (12.0-16.0) g/dl Hct (37-47) % MCV (80-98) fL MCH (27.0-33.0) pg MCHC (31.0-35.0) g/dl RDW (11.0-16.0) % Plt Count (160-400) X10*3/uL MPV (9.4-12.3) fL Immature Gran % (Auto) (0.0-0.4) % Neut % (Auto) (45-73) % Lymph % (Auto) (20-40) % White % (Auto) (2-11) % Eos % (Auto) (0-4) % Baso % (Auto) (0-2) % Lymph # (Auto) (1.2-4.9) X10*3/uL White # (Auto) (0.1-1.2) X10*3/uL Eos # (Auto) (0.0-0.4) X10*3/uL Baso # (Auto) (0.0-0.2) X10*3/uL Abs Immat Gran (auto) (0.00-0.03) X10*3/uL Absolute Neuts (auto) (2.0-8.3) X10*3/uL Absolute Nucleated RBC (0.0-0.012) X10*3/uL Nucleated RBC % (auto) (0.0-0.2) /100WBC Sodium (135-145) mmol/L Potassium (3.3-5.1) mmol/L Chloride (96-108) mmol/L Carbon Dioxide (22-29) mmol/L Anion Gap (12-20) BUN (9-16) mg/dL Creatinine (0.5-1.4) mg/dL Estim Creat Clear Calc Estimated GFR POC Glucose 152 H 164 H 200 H (60-115) mg/dL Random Glucose (60-115) mg/dL Lactic Acid (0.5-2.0) mmol/L Lactic Acid Fup @ 2Hr (0.5-2.0) mmol/L Calcium (8.4-10.2) mg/dL Total Bilirubin (0.0-1.0) mg/dL Direct Bilirubin (0.0-0.5) mg/dL AST (5-31) U/L ALT (0-31) U/L Alkaline Phosphatase (39-117) U/L Total Protein (6.5-8.0) g/dL Albumin (3.5-5.0) g/dL COVID-19 (ELIZ) (Negative) COVID-19 Clin Com 03/19/21 03/19/21 03/19/21 Range/Units 21:05 21:10 21:17 WBC (4.8-10.8) X10*3/uL RBC (4.20-5.50) X10*6/uL Hgb (12.0-16.0) g/dl Hct (37-47) % MCV (80-98) fL MCH (27.0-33.0) pg MCHC (31.0-35.0) g/dl RDW (11.0-16.0) % Plt Count (160-400) X10*3/uL MPV (9.4-12.3) fL Immature Gran % (Auto) (0.0-0.4) % Neut % (Auto) (45-73) % Lymph % (Auto) (20-40) % White % (Auto) (2-11) % Eos % (Auto) (0-4) % Baso % (Auto) (0-2) % Lymph # (Auto) (1.2-4.9) X10*3/uL White # (Auto) (0.1-1.2) X10*3/uL Eos # (Auto) (0.0-0.4) X10*3/uL Baso # (Auto) (0.0-0.2) X10*3/uL Abs Immat Gran (auto) (0.00-0.03) X10*3/uL Absolute Neuts (auto) (2.0-8.3) X10*3/uL Absolute Nucleated RBC (0.0-0.012) X10*3/uL Nucleated RBC % (auto) (0.0-0.2) /100WBC Sodium 140 (135-145) mmol/L Potassium 5.9 H D (3.3-5.1) mmol/L Chloride 112 H (96-108) mmol/L Carbon Dioxide 17 L (22-29) mmol/L Anion Gap 17 (12-20) BUN 21 H (9-16) mg/dL Creatinine 0.94 (0.5-1.4) mg/dL Estim Creat Clear Calc 93.8 Estimated GFR > 60 POC Glucose 218 H (60-115) mg/dL Random Glucose 226 H D (60-115) mg/dL Lactic Acid (0.5-2.0) mmol/L Lactic Acid Fup @ 2Hr 2.9 H* (0.5-2.0) mmol/L Calcium 9.0 (8.4-10.2) mg/dL Total Bilirubin (0.0-1.0) mg/dL Direct Bilirubin (0.0-0.5) mg/dL AST (5-31) U/L ALT (0-31) U/L Alkaline Phosphatase (39-117) U/L Total Protein (6.5-8.0) g/dL Albumin (3.5-5.0) g/dL COVID-19 (ELIZ) (Negative) COVID-19 Clin Com ECG Data Attestation: I personally reviewed and interpreted this ECG as follows: Interpretation: Normal sinus rhythm heart rate 77 beats per minute normal intervals normal axis no acute ST T wave changes no acute ischemia Discharge Plan Discharge Clinical Impression: Weakness, Acute hyperkalemia UTI (urinary tract infection) Qualifiers: Urinary tract infection type: acute cystitis Hematuria presence: without hematuria Qualified Code(s): N30.00 - Acute cystitis without hematuria Patient Disposition: Admitted As Inpatient
[2021-03-19 16:03] LABS: COVID-19 Test Negative (Negative)
--- NOTE | 2021-03-19 16:14 | PC.NURSE ---
Pt is refusing all interventions at this time including repeat temp, u via straight cath, IV, and blood draws.
--- NOTE | 2021-03-19 18:06 | PC.NURSE ---
20g IV inserted by MD to right hand. Labs obtained.
[2021-03-19 18:20] LABS: MANUAL DIFF FLAG NO
[2021-03-19] MEDS: Ertapenem Sodium 1 GM in 0.9 % Sodium Chloride 50 ML IV (18:23)
[2021-03-19] MEDS: 0.9 % Sodium Chloride 1,000 ML 999 ML IVCONT ×2 (18:24→22:00)
[2021-03-19 18:39] LABS: Basophils Percent Auto 0.2 % (0-2); Eosinophils Percent Auto 0.2 % (0-4); Hematocrit 28.4 % (37-47); Imm Gran Abs Auto 0.02 X10*3/uL (0.00-0.03); Imm Gran Pct Auto 0.3 % (0.0-0.4); Lymphocytes Absolute Auto 0.8 X10*3/uL (1.2-4.9); Lymphocytes Percent Auto 12.9 % (20-40); Mean Corpuscular HGB Conc 31.7 g/dl (31.0-35.0); Mean Corpuscular Hemoglobin 28.1 pg (27.0-33.0); Mean Corpuscular Volume 88.8 fL (80-98); Mean Platelet Volume 10.7 fL (9.4-12.3); Monocytes Absolute Auto 0.6 X10*3/uL (0.1-1.2); Monocytes Percent Auto 9.5 % (2-11); Neutrophils Absolute Auto 4.9 X10*3/uL (2.0-8.3); Neutrophils Percent Auto 76.9 % (45-73); Platelet Count 182 X10*3/uL (160-400); Red Cell Distribution Width 15.1 % (11.0-16.0); White Blood Count 6.4 X10*3/uL (4.8-10.8)
[2021-03-19 18:46] LABS: Lactic Acid 2.4 mmol/L (0.5-2.0)
--- NOTE | 2021-03-19 19:15 | PC.NURSE ---
Pt refusing blood work at this time
--- NOTE | 2021-03-19 19:21 | PC.NURSE ---
Dr Dean aware pt refusing labs. Dr Dean called lab and asked them to run previously obtained labs, per Jermaine lab is agreeable. Pt refusing rectal temp, oral temp not working. Pt aaox1, oriented to person with deficits of place time and situation. 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 Pt IVF infusing appropriately. Pt mumbling garbled speech to self, appears to be responding to internal stimuli. Pt stretcher is in lowest locked position, rails raised, call seals within reach.
--- NOTE | 2021-03-19 19:34 | PC.NURSE ---
Pt BGL checked, found to be 58. Dr Dean aware and pt provided with apple juice. BGL to be reassessed in 15 minutes
[2021-03-19 19:38] LABS: Alanine Aminotransferase 21 U/L (0-31); Alkaline Phosphatase 195 U/L (39-117); Aspartate Amino Transferase 37 U/L (5-31); Bilirubin Direct < 0.2 mg/dL (0.0-0.5); Bilirubin Total 0.2 mg/dL (0.0-1.0); Total Protein 8.7 g/dL (6.5-8.0)
--- NOTE | 2021-03-19 19:54 | ECG_ITS ---
Test Reason : AMS Blood Pressure : / mmHG Vent. Rate : 077 BPM Atrial Rate : 077 BPM P-R Int : 198 ms QRS Dur : 094 ms QT Int : 414 ms P-R-T Axes : 070 042 038 degrees QTc Int : 468 ms Normal sinus rhythm Normal ECG When compared with ECG of 24-JAN-2021 14:25, No significant change was found Referred By: Umberto eDan Electronically Signed By:Len Munoz
--- NOTE | 2021-03-19 19:55 | PC.NURSE ---
After 12oz apple juice, pt BGL reassessed, was 59. Anwer made aware. This RN verbal order dextose IVP. Pt continues to respond to internal stimuli.
[2021-03-19 19:57] LABS: Anion Gap 20 (12-20); Blood Urea Nitrogen 24 mg/dL (9-16); Calcium 9.3 mg/dL (8.4-10.2); Carbon Dioxide 19 mmol/L (22-29); Chloride 109 mmol/L (96-108); Creatinine Clr Calc Pharmacy 91.8; Estimated Glomerular Filt Rate > 60; Glucose Random 66 mg/dL (60-115); Potassium 8.4 mmol/L (3.3-5.1); Sodium 140 mmol/L (135-145)
[2021-03-19 20:18] LABS: Reflex Lactate? Lactic Acid Added
[2021-03-19 20:21] LABS: Glucose, Whole Blood 58 mg/dL (60-115)
[2021-03-19 20:21] LABS: Glucose, Whole Blood 164 mg/dL (60-115)
[2021-03-19 20:21] LABS: Glucose, Whole Blood 59 mg/dL (60-115)
[2021-03-19 20:21] LABS: Glucose, Whole Blood 152 mg/dL (60-115)
[2021-03-19 20:21] LABS: Glucose, Whole Blood 60 mg/dL (60-115)
--- NOTE | 2021-03-19 20:21 | PC.NURSE ---
Addendum entered by Daryl Dudley 03/19/21 20:22: blood sugar 164 15 minutes after dextrose was given Original Note: Blood sugar 164 15 minutes dextrose was given
--- NOTE | 2021-03-19 20:31 | PC.NURSE ---
MULTIPLE ATTEMPTS WERE MADE TO CONVINCE PT TO HAVE LABS DRAWN AND COVID SWAB DONE. PT REFUSING AND GETTING VERBALLY AGGRESSIVE. RN AND AWARE.,
--- NOTE | 2021-03-19 20:51 | PC.NURSE ---
Pt continues to refuse bloodwork, also refusing straight cath for urine sample. Dr Dean made aware.
[2021-03-19 21:24] LABS: Glucose, Whole Blood 218 mg/dL (60-115)
[2021-03-19 21:24] LABS: Glucose, Whole Blood 200 mg/dL (60-115)
[2021-03-19 21:34] LABS: ~Lactic Acid-LAB USE ONLY 2.9 mmol/L (0.5-2.0)
[2021-03-19 21:36] LABS: Anion Gap 17 (12-20); Blood Urea Nitrogen 21 mg/dL (9-16); Carbon Dioxide 17 mmol/L (22-29); Chloride 112 mmol/L (96-108); Creatinine Clr Calc Pharmacy 93.8; Estimated Glomerular Filt Rate > 60; Glucose Random 226 mg/dL (60-115); Potassium 5.9 mmol/L (3.3-5.1); Sodium 140 mmol/L (135-145)
--- NOTE | 2021-03-19 21:54 | PC.NURSE ---
Pt provided ham sandwich and diet nikole lavon per request. calcium gluconate IV initiated per MAR, NS IVF hung as ordered.
[2021-03-19] MEDS: Calcium Gluconate/NaCl,Iso-Osm 2 GM/100 ML PLAST..BAG IV (21:57)
[2021-03-19 23:09] LABS: Reflex Lactate? 2 Y
--- NOTE | 2021-03-19 23:33 | PC.NURSE ---
PHLEBOTOMY WAS UNABLE TO DRAW LABS FOR PATIENT.
[2021-03-19 23:59] LABS: Glucose, Whole Blood 216 mg/dL (60-115)
[2021-03-20 00:29] VITALS: BMI 36.1
[2021-03-20] MEDS: levETIRAcetam 1,000 MG TABLET 1000 MG PO ×3 (01:20→20:22)
[2021-03-20] MEDS: HaloperidoL 5 MG TABLET 10 MG PO ×3 (01:20→20:21)
[2021-03-20] MEDS: HaloperidoL 5 MG TABLET PO ×3 (01:20→20:22)
[2021-03-20] MEDS: OXcarbazepine 150 MG TABLET PO ×3 (01:21→20:21)
[2021-03-20] MEDS: Heparin Sodium,Porcine 5,000 UNIT/ML VIAL 5000 UNIT SUBCUT ×2 (01:21→13:30)
[2021-03-20] MEDS: Insulin Glargine,Hum.rec.anlog 100 UNIT/ML 10 ML VIAL 15 UNIT SUBCUT (01:21)
[2021-03-20] MEDS: 0.9 % Sodium Chloride Flush 3 ML SYRINGE IVFLUSH ×3 (01:21→17:33)
[2021-03-20] MEDS: Benztropine Mesylate 1 MG TABLET PO ×3 (01:21→20:22)
--- NOTE | 2021-03-20 02:49 | MHC.PIE ---
p; on arrival from ed pt crying, talking incoherently, refusing any care and or any physical contact. pt redirected multiple times and consulted multiple times during which pt reports i want to several times and when asked, pt reports i want to taking sleeping pills i; nursing supervisor alum plant notified, sitter placed in room i; dr sanchez notified e; pt now in bed asleep, sitter in room, camera in room, will cont to monitor
[2021-03-20 04:00] VITALS: TEMP 36.4
--- NOTE | 2021-03-20 05:40 | P.HPHOSP_ITS ---
History of Present Illness Date of Service: 03/19/21 Chief Complaint: Worsening lethargy This is a 50-year-old female with history of TBI, hyperlipidemia hypothyroidism, seizure disorder, diabetes, dementia, who [facility] with increased lethargy and decreased communication. History is obtained mostly from ED physician as well as EMR as patient is confused and unable to give good history. It appears that patient had change of mental status about 1 week ago, she was tested for UTI and came positive for ESBL sensitive to Bactrim, patient was started on Bactrim on 15/03 but her mental status worsened and she did not improved therefore was brought into the hospital. Patient herself appears comfortable at this time, she denies any chest pain, no abdominal pain, no nausea or vomiting, no diarrhea or constipation. Unable to obtain complete an accurate review of system due to mentation Vital sign arrival significant for temp of 94? point know that improved to 96.6 by admission time, heart rate of 72, respiratory rate of 15, blood pressure 136/60 story, satting 99% on room air for WBC count of 6.4, hemoglobin of 9.0, hematocrit 28.4, initial potassium of 8.4 but the sample was hemolyzed repeat potassium was 5.9 with no EKG changes, lactic acid initially of 2.9 , UA PENDING COLLECTION EKG shows normal sinus rhythm with no EKG changes Patient received ertapenem and will be admitted for further management Review of Systems Review of Systems: Yes Unobtainable due to mental condition and Unobtainable due to mental status [facility] Medical History Diabetes Hyperlipidemia Hypothyroid Seizure disorder Unspecified dementia with behavioral disturbance Social History Household Members: Other Housing: [facility] Do you presently have visiting nurse or other home services: No (from [facility]) Alcohol intake: never Patient Tobacco Use Status: Never used Tobacco Use of substances other than those prescribed or required for medical reasons: No Advance Directives: Yes Advance Directives Information Provided: Yes Advance Directives on File: No Advance Directives Date on File: 03/20/21 Do you have thoughts of harming others: Vague Do you have a plan to hurt others: Clear and Vague Recently lost weight without trying: Unsure Nutrition Risks: No Nutritional Risk Patient : No : No Poor oral hygiene: No Meds Allergies Allergy/AdvReac Type Severity Reaction Status Date / Time chlorpromazine Allergy Intermediate HIVES Verified 12/10/20 21:05 [CHLORPROMAZINE] Active Medications: Current Medications Generic Name Dose Route Start Last Admin Trade Name Freq PRN Reason Stop Dose Admin Acetaminophen 650 mg 03/20/21 00:28 Acetaminophen 325 Mg Tablet PO Q6H PRN Pain, Mild (Pain Scale 1-3) Atorvastatin Calcium 10 mg 03/20/21 21:00 Atorvastatin Calcium 10 Mg Tablet PO BEDTIME TOM Benztropine Mesylate 1 mg 03/20/21 00:28 03/20/21 01:21 Benztropine Mesylate 1 Mg Tablet PO 1 mg BID TOM Administration Docusate Sodium 100 mg 03/20/21 09:00 Docusate Sodium 100 Mg Capsule PO BID TOM Docusate Sodium 100 mg 03/20/21 00:28 Docusate Sodium 100 Mg Capsule PO DAILY PRN Constipation Gabapentin 600 mg 03/20/21 09:00 Gabapentin 600 Mg Tablet PO TID TOM Haloperidol 5 mg 03/20/21 00:28 03/20/21 01:20 Haloperidol 5 Mg Tablet PO 5 mg BID TOM Administration Haloperidol 10 mg 03/20/21 00:28 03/20/21 01:20 Haloperidol 5 Mg Tablet PO 10 mg BID TOM Administration Heparin Sodium (Porcine) 5,000 unit 03/20/21 00:28 03/20/21 01:21 Heparin Sodium,Porcine 5,000 Unit/Ml Vial SUBCUT 5,000 unit Q12H [facility] Administration Ertapenem 1 gm/ Sodium 50 mls @ 100 mls/hr 03/20/21 09:00 Chloride IV DAILY [facility] Insulin Glargine 15 unit 03/20/21 00:28 03/20/21 01:21 Insulin Glargine,Hum.Rec.Anlog 100 Unit/Ml 10 Ml Vial SUBCUT 15 unit BEDTIME [facility] Administration Insulin Glargine 20 unit 03/20/21 00:28 03/20/21 01:32 Insulin Glargine,Hum.Rec.Anlog 100 Unit/Ml 10 Ml Vial SUBCUT Not Given DAILY [facility] Insulin Human Lispro 0 - 10 unit 03/20/21 07:30 Insulin Lispro 100 Unit/Ml 3 Ml Vial SUBCUT QIDACHS [facility] Protocol Levetiracetam 1,000 mg 03/20/21 00:28 03/20/21 01:20 Levetiracetam 1,000 Mg Tablet PO 1,000 mg BID [facility] Administration Levothyroxine Sodium 25 mcg 03/20/21 09:00 Levothyroxine Sodium 25 Mcg Tablet PO DAILY [facility] Levothyroxine Sodium 150 mcg 03/20/21 09:00 Levothyroxine Sodium 150 Mcg Tablet PO DAILY [facility] Ondansetron HCl 4 mg 03/20/21 00:28 Ondansetron Hcl 4 Mg/2 Ml Vial IVPUSH Q8H PRN Nausea and Vomiting Oxcarbazepine 150 mg 03/20/21 00:28 03/20/21 01:21 Oxcarbazepine 150 Mg Tablet PO 150 mg BID [facility] Administration Phenytoin Sodium 200 mg 03/20/21 09:00 Phenytoin Sodium Extended 100 Mg Capsule PO BID [facility] Quetiapine Fumarate 50 mg 03/20/21 09:00 Quetiapine Fumarate 50 Mg Tablet PO BID [facility] Senna 8.6 mg 03/20/21 09:00 Sennosides 8.6 Mg Tablet PO DAILY [facility] Sodium Biphosphate/Sodium Phosphate 118 ml 03/20/21 00:28 Sodium Phosphate,Ward-Dibasic 133 Ml Enema [place] DAILY PRN Constipation Sodium Chloride 3 ml 03/20/21 00:28 03/20/21 01:21 0.9 % Sodium Chloride Flush 3 Ml Syringe IVFLUSH 3 ml QSHIFT [facility] Administration Vitamin D 125 mcg 03/20/21 09:00 Cholecalciferol (Vitamin D3) 25 Mcg Tablet PO DAILY [facility] Home Medications Medication Instructions Recorded Confirmed Last Taken Type Novolog Flexpen U-100 Insulin SUBCUT QIDACHS PRN 03/19/21 Unknown History acetaminophen 325 mg tablet 650 mg PO Q6H PRN 03/19/21 03/19/21 Unknown History atorvastatin 10 mg tablet 10 mg PO BEDTIME 03/19/21 03/19/21 Unknown History benztropine 1 mg tablet 1 mg PO BID 03/19/21 03/19/21 Unknown History cholecalciferol (vitamin D3) 125 125 mcg PO DAILY 03/19/21 03/19/21 Unknown History mcg (5,000 unit) tablet (Vitamin D3) docusate sodium 100 mg capsule 100 mg PO BID 03/19/21 03/19/21 Unknown History dulaglutide 0.75 mg/0.5 mL 0.75 mg SUBCUT QWEEK 03/19/21 03/19/21 Unknown History subcutaneous pen injector (Trulicity) ferrous sulfate 325 mg (65 mg 325 mg PO DAILY 03/19/21 03/19/21 Unknown History iron) tablet gabapentin 600 mg tablet 600 mg PO TID 03/19/21 03/19/21 Unknown History glucagon 1 mg solution for 1 mg IM PRN 03/19/21 03/19/21 Unknown History injection haloperidol 10 mg tablet 10 mg PO BID 03/19/21 03/19/21 Unknown History haloperidol 5 mg tablet 5 mg PO BID 03/19/21 03/19/21 Unknown History ibuprofen 600 mg tablet 600 mg PO Q8H PRN 03/19/21 03/19/21 Unknown History insulin glargine 100 unit/mL (3 15 unit SUBCUT BEDTIME 03/19/21 03/19/21 Unknown History mL) subcutaneous pen (Lantus Solostar U-100 Insulin) insulin glargine 100 unit/mL (3 20 unit SUBCUT QAM 03/19/21 03/19/21 Unknown History mL) subcutaneous pen (Lantus Solostar U-100 Insulin) levetiracetam 1,000 mg tablet 1,000 mg PO BID 03/19/21 03/19/21 Unknown History levothyroxine 150 mcg tablet 150 mcg PO DAILY 03/19/21 03/19/21 Unknown History levothyroxine 25 mcg tablet 25 mcg PO DAILY 03/19/21 03/19/21 Unknown History metformin 1,000 mg tablet 1,000 mg PO BID 03/19/21 03/19/21 Unknown History nitrofurantoin 100 mg PO BID 03/19/21 03/19/21 03/19/21 History monohydrate/macrocrystals 100 mg capsule (Macrobid) oxcarbazepine 150 mg tablet 150 mg PO BID 03/19/21 03/19/21 Unknown History phenytoin sodium extended 200 mg 200 mg PO BID 03/19/21 03/19/21 Unknown History capsule quetiapine 50 mg tablet 50 mg PO BID 03/19/21 03/19/21 Unknown History sennosides 8.6 mg tablet (senna) 8.6 mg PO DAILY 03/19/21 03/19/21 Unknown History sodium phosphates 19 gram-7 118 ml [place] DAILY PRN 03/19/21 03/19/21 Unknown History gram/118 mL enema (Fleet Enema) Physical Exam Vital Signs and Narrative: Vital Signs: Last Vital Signs Temp 97.5 F 03/20/21 04:00 Pulse 77 03/19/21 21:54 Resp 21 H 03/19/21 21:54 BP 123/63 03/19/21 21:54 Pulse Ox 98 03/19/21 21:54 Body Mass Index 36.1 Const: Other: Oriented to self, hospital but not time and which hospital General: cooperative and no acute distress Eyes: General: appearance normal, both eyes and all related structures Resp: Effort & Inspection: normal respiratory effort and able to speak in complete sentences Auscultation: clear to auscultation bilaterally Cardio: Rate: regular rate Rhythm: regular rhythm GI: Palpation (GI): Soft to palpation Auscultation: normal bowel sounds Skin: General skin exam: no rashes or lesions noted Neuro: Cognition (Neuro): abnormal cognition Extrem: General: Yes normal to inspection and Yes no pedal edema Results Labs CBC and Chem 7: 03/19/21 18:12 03/19/21 21:10 Labs: Laboratory Results - last 24 hr 03/19/21 03/19/21 03/19/21 14:23 15:42 18:12 MCV 88.8 MCH 28.1 MCHC 31.7 RDW 15.1 Plt Count 182 MPV 10.7 Immature Gran % (Auto) 0.3 Neut % (Auto) 76.9 H Lymph % (Auto) 12.9 L Ward % (Auto) 9.5 Eos % (Auto) 0.2 Baso % (Auto) 0.2 Lymph # (Auto) 0.8 L Ward # (Auto) 0.6 Eos # (Auto) 0.0 Baso # (Auto) 0.0 Abs Immat Gran (auto) 0.02 Absolute Neuts (auto) 4.9 Absolute Nucleated RBC 0.000 Nucleated RBC % (auto) 0.0 Anion Gap Estim Creat Clear Calc Estimated GFR POC Glucose 107 Random Glucose Lactic Acid Lactic Acid Fup @ 2Hr Calcium Total Bilirubin Direct Bilirubin AST ALT Alkaline Phosphatase Total Protein Albumin COVID-19 (ELIZ) Negative COVID-19 Clin Com See Note 08/01/21 08/01/21 08/01/21 18:12 18:12 18:12 MCV MCH MCHC RDW Plt Count MPV Immature Gran % (Auto) Neut % (Auto) Lymph % (Auto) Ward % (Auto) Eos % (Auto) Baso % (Auto) Lymph # (Auto) Ward # (Auto) Eos # (Auto) Baso # (Auto) Abs Immat Gran (auto) Absolute Neuts (auto) Absolute Nucleated RBC Nucleated RBC % (auto) Anion Gap 20 Estim Creat Clear Calc 91.8 Estimated GFR > 60 POC Glucose Random Glucose 66 D Lactic Acid 2.4 H* Lactic Acid Fup @ 2Hr Calcium 9.3 Total Bilirubin 0.2 Direct Bilirubin < 0.2 AST 37 H D ALT 21 Alkaline Phosphatase 195 H Total Protein 8.7 H Albumin 4.0 COVID-19 (ELIZ) COVID-19 [employer] Com 03/19/21 03/19/21 03/19/21 19:30 19:38 19:47 MCV MCH MCHC RDW Plt Count MPV Immature Gran % (Auto) Neut % (Auto) Lymph % (Auto) Ward % (Auto) Eos % (Auto) Baso % (Auto) Lymph # (Auto) Ward # (Auto) Eos # (Auto) Baso # (Auto) Abs Immat Gran (auto) Absolute Neuts (auto) Absolute Nucleated RBC Nucleated RBC % (auto) Anion Gap Estim Creat Clear Calc Estimated GFR POC Glucose 58 L* 60 59 L* Random Glucose Lactic Acid Lactic Acid Fup @ 2Hr Calcium Total Bilirubin Direct Bilirubin AST ALT Alkaline Phosphatase Total Protein Albumin COVID-19 (ELIZ) COVID-19 Clin Com 03/19/21 03/19/21 03/19/21 20:02 20:17 20:46 MCV MCH MCHC RDW Plt Count MPV Immature Gran % (Auto) Neut % (Auto) Lymph % (Auto) Ward % (Auto) Eos % (Auto) Baso % (Auto) Lymph # (Auto) Ward # (Auto) Eos # (Auto) Baso # (Auto) Abs Immat Gran (auto) Absolute Neuts (auto) Absolute Nucleated RBC Nucleated RBC % (auto) Anion Gap Estim Creat Clear Calc Estimated GFR POC Glucose 152 H 164 H 200 H Random Glucose Lactic Acid Lactic Acid Fup @ 2Hr Calcium Total Bilirubin Direct Bilirubin AST ALT Alkaline Phosphatase Total Protein Albumin COVID-19 (ELIZ) COVID-19 [employer] Com 03/19/21 03/19/21 03/19/21 21:05 21:10 21:17 MCV MCH MCHC RDW Plt Count MPV Immature Gran % (Auto) Neut % (Auto) Lymph % (Auto) Ward % (Auto) Eos % (Auto) Baso % (Auto) Lymph # (Auto) Ward # (Auto) Eos # (Auto) Baso # (Auto) Abs Immat Gran (auto) Absolute Neuts (auto) Absolute Nucleated RBC Nucleated RBC % (auto) Anion Gap 17 Estim Creat Clear Calc 93.8 Estimated GFR > 60 POC Glucose 218 H Random Glucose 226 H D Lactic Acid Lactic Acid Fup @ 2Hr 2.9 H* Calcium 9.0 Total Bilirubin Direct Bilirubin AST ALT Alkaline Phosphatase Total Protein Albumin COVID-19 (ELIZ) COVID-19 [employer] Com 03/19/21 23:50 MCV MCH MCHC RDW Plt Count MPV Immature Gran % (Auto) Neut % (Auto) Lymph % (Auto) Ward % (Auto) Eos % (Auto) Baso % (Auto) Lymph # (Auto) Ward # (Auto) Eos # (Auto) Baso # (Auto) Abs Immat Gran (auto) Absolute Neuts (auto) Absolute Nucleated RBC Nucleated RBC % (auto) Anion Gap Estim Creat Clear Calc Estimated GFR POC Glucose 216 H Random Glucose Lactic Acid Lactic Acid Fup @ 2Hr Calcium Total Bilirubin Direct Bilirubin AST ALT Alkaline Phosphatase Total Protein Albumin COVID-19 (ELIZ) COVID-19 [facility] Assessment and Plan (1) ESBL (extended spectrum beta-lactamase) producing bacteria infection: Status: Acute (2) UTI (urinary tract infection): Qualifiers: Hematuria presence: without hematuria Urinary tract infection type: acute cystitis Qualified Code(s): N30.00 - Acute cystitis without hematuria Status: Acute (3) Weakness: Status: Acute (4) Acute hyperkalemia: Status: Acute (5) Lethargic: Status: Acute 50-year-old female with past medical history of TBI, seizures, hypothyroidism, diabetes who presents to the hospital with worsening mental status found to have UTI secondary to ESBL # ESBL UTI - [facility] and found to have ESBL UTI was treated with Bactrim - worsening mentation on Bactrim - patient with hypothermia, no leukocytosis and no other evidence of systemic infection - will start her on ertapenem - infectious disease consulted - repeat UA and urine cultures # weakness and increased lethargy - secondary to infection - treat underlying infection - follow mentation # acute hyperkalemia - no EKG changes - will give Kayexalate - follow BMP # diabetes - continue home insulin - add low-dose sliding scale insulin - diabetic diet # history of seizures - continue antiepileptics DVT prophylaxis: Heparin subQ Quality Stroke Does the patient have a stroke diagnosis?: No VTE Prior VTE?: No VTE Risk Level:: Medical - moderate - high VTE Device Contraindication: Treatment Not Indicated VTE Drug Contraindication: N/A - Med Ordered
[2021-03-20 07:46] LABS: Glucose, Whole Blood 120 mg/dL (60-115)
[2021-03-20 07:47] VITALS: BP 129/71; PULSE 79; RESP 18; TEMP 36.1; O2SAT 95
[2021-03-20] MEDS: Cholecalciferol (Vitamin D3) 25 MCG TABLET 125 MCG PO (08:40)
[2021-03-20] MEDS: Sennosides 8.6 MG TABLET PO (08:42)
[2021-03-20] MEDS: Levothyroxine Sodium 25 MCG TABLET PO (08:42)
[2021-03-20] MEDS: QUEtiapine Fumarate 50 MG TABLET PO ×2 (08:42→20:21)
[2021-03-20] MEDS: Phenytoin Sodium Extended 100 MG CAPSULE 200 MG PO ×2 (08:44→20:22)
[2021-03-20] MEDS: Levothyroxine Sodium 150 MCG TABLET PO (08:46)
[2021-03-20] MEDS: Docusate Sodium 100 MG CAPSULE PO ×2 (08:46→20:21)
[2021-03-20] MEDS: Gabapentin 600 MG TABLET PO ×3 (08:46→20:21)
[2021-03-20] MEDS: Sodium Polystyrene Sulfon/Sorb 15 GM/60 ML ORAL.SUSP 30 GM PO (09:08)
[2021-03-20] MEDS: Insulin Glargine,Hum.rec.anlog 100 UNIT/ML 10 ML VIAL 20 UNIT SUBCUT (09:18)
--- NOTE | 2021-03-20 09:47 | MHC.CM.PN ---
Addendum entered by Susan Lopez RN 03/20/21 12:47: PER CONVERSATION W/[facility] THIS MORNING AT 9:25AM PT HAS NO HX OF SUICIDE ATTEMPTS, PT DOES HAVE HX OF BECOMING VERY TEARFUL AND MAKING COMMENTS ABOUT SI WHEN SICK SINCE SHE HAD COVID. CM DID GIVE THIS HX TO [facility]. Original Note: EMR REVIEWED, PT ADMITTED W/ESBL UTI, WEAKNESS AND HYPERKALEMIA, CM MET W/PT WHO KNOW HER NAME, SITIUATION AND THAT SHE IS IN THE HOSPITAL HOWEVER DOES NOT NO WHERE SHE LIVES, PT DOES KNOW SHE HER COUSIN JAMMIE IS HER HCP, PT REPORTS SHE AMBULATES INDEPENDENTLY AND IS INDEPENDENT W/ADL'S/SHOWERS, CM RECEIVED CALL FROM PT'S [facility] AT 9:25AM WHO VERIFIED INFORMATION AND REPORTED THAT PT'S HCP HAS BEEN INVOKED, MESSAGE SENT TO [facility]OSPITALIST [facility] [employer] W/NAME AND CONTACT NUMBER FOR HCP.A COPY OF [employer] HAS BEEN REQUESTED. PER [facility] THEY ARE ABLE TO ACCOMMODATE IV ABX IF REQUIRED AT D/C D/C PLAN:RETURN TO [facility] VS RETURN W/IV ABX, [facility] FOR BLS TRANSPORT. PCP: DR LEVINE HCP: BENTLEY GALINDO [phone] NO ALTERNATE LISTED
--- NOTE | 2021-03-20 09:51 | P.PNIM_ITS ---
Subjective Subjective Date of Service: 03/20/21 Interval History: seen and examined knows shes in the hospital for an infection denies complaints, no pain Review of Systems ROS unreliable Physical Exam Vital Signs: Vital Signs: Last Vital Signs Temp 97 F 03/20/21 07:47 Pulse 79 03/20/21 07:47 Resp 18 03/20/21 07:47 BP 129/71 03/20/21 07:47 Pulse Ox 95 03/20/21 07:47 Body Mass Index 36.1 General - no acute distress, appears comfortable Cardiovascular - regular rate and rhythm, S1-S2 Lungs - normal respiratory effort, clear to auscultation bilaterally, no wheezing Abdomen - soft, nontender, no rebound or guarding Extremities - no edema bilaterally Neuro - awake and alert, oriented to place and situation Objective Data Current Medications Generic Name Dose Route Start Last Admin Trade Name Freq PRN Reason Stop Dose Admin Acetaminophen 650 mg 03/20/21 00:28 Acetaminophen 325 Mg Tablet PO Q6H PRN Pain, Mild (Pain Scale 1-3) Atorvastatin Calcium 10 mg 03/20/21 21:00 Atorvastatin Calcium 10 Mg Tablet PO BEDTIME TOM Benztropine Mesylate 1 mg 03/20/21 00:28 03/20/21 08:46 Benztropine Mesylate 1 Mg Tablet PO 1 mg BID TOM Administration Docusate Sodium 100 mg 03/20/21 09:00 03/20/21 08:46 Docusate Sodium 100 Mg Capsule PO 100 mg BID TOM Administration Docusate Sodium 100 mg 03/20/21 00:28 Docusate Sodium 100 Mg Capsule PO DAILY PRN Constipation Gabapentin 600 mg 03/20/21 09:00 03/20/21 08:46 Gabapentin 600 Mg Tablet PO 600 mg TID TOM Administration Haloperidol 5 mg 03/20/21 00:28 03/20/21 08:45 Haloperidol 5 Mg Tablet PO 5 mg BID TOM Administration Haloperidol 10 mg 03/20/21 00:28 03/20/21 01:20 Haloperidol 5 Mg Tablet PO 10 mg BID TOM Administration Heparin Sodium (Porcine) 5,000 unit 03/20/21 00:28 03/20/21 01:21 Heparin Sodium,Porcine 5,000 Unit/Ml Vial SUBCUT 5,000 unit Q12H TOM Administration Meropenem 1 gm/ Sodium 100 mls @ 100 mls/hr 03/20/21 09:00 03/20/21 09:09 Chloride IV 100 mls/hr Q8H TOM Administration Insulin Glargine 15 unit 03/20/21 00:28 03/20/21 01:21 Insulin Glargine,Hum.Rec.Anlog 100 Unit/Ml 10 Ml Vial SUBCUT 15 unit BEDTIME TOM Administration Insulin Glargine 20 unit 03/20/21 00:28 03/20/21 09:18 Insulin Glargine,Hum.Rec.Anlog 100 Unit/Ml 10 Ml Vial SUBCUT 20 unit DAILY TOM Administration Insulin Human Lispro 0 - 10 unit 03/20/21 07:30 03/20/21 09:03 Insulin Lispro 100 Unit/Ml 3 Ml Vial SUBCUT Not Given QIDACHS [facility] Protocol Levetiracetam 1,000 mg 03/20/21 00:28 03/20/21 08:45 Levetiracetam 1,000 Mg Tablet PO 1,000 mg BID TOM Administration Levothyroxine Sodium 25 mcg 03/20/21 09:00 03/20/21 08:42 Levothyroxine Sodium 25 Mcg Tablet PO 25 mcg DAILY TOM Administration Levothyroxine Sodium 150 mcg 03/20/21 09:00 03/20/21 08:46 Levothyroxine Sodium 150 Mcg Tablet PO 150 mcg DAILY TOM Administration Ondansetron HCl 4 mg 03/20/21 00:28 Ondansetron Hcl 4 Mg/2 Ml Vial IVPUSH Q8H PRN Nausea and Vomiting Oxcarbazepine 150 mg 03/20/21 00:28 03/20/21 08:46 Oxcarbazepine 150 Mg Tablet PO 150 mg BID TOM Administration Phenytoin Sodium 200 mg 03/20/21 09:00 03/20/21 08:44 Phenytoin Sodium Extended 100 Mg Capsule PO 200 mg BID TOM Administration Quetiapine Fumarate 50 mg 03/20/21 09:00 03/20/21 08:42 Quetiapine Fumarate 50 Mg Tablet PO 50 mg BID TOM Administration Senna 8.6 mg 03/20/21 09:00 03/20/21 08:42 Sennosides 8.6 Mg Tablet PO 8.6 mg DAILY TOM Administration Sodium Biphosphate/Sodium Phosphate 118 ml 03/20/21 00:28 Sodium Phosphate,[place]agle-Dibasic 133 Ml Enema [place] DAILY PRN Constipation Sodium Chloride 3 ml 03/20/21 00:28 03/20/21 08:49 0.9 % Sodium Chloride Flush 3 Ml Syringe IVFLUSH 3 ml QSHIFT TOM Administration Vitamin D 125 mcg 03/20/21 09:00 03/20/21 08:40 Cholecalciferol (Vitamin D3) 25 Mcg Tablet PO 125 mcg DAILY TOM Administration Labs CBC & Chem 7: 03/19/21 18:12 03/19/21 21:10 Labs: Laboratory Results - last 24 hr 03/19/21 03/19/21 03/19/21 14:23 15:42 18:12 MCV 88.8 MCH 28.1 MCHC 31.7 RDW 15.1 Plt Count 182 MPV 10.7 Immature Gran % (Auto) 0.3 Neut % (Auto) 76.9 H Lymph % (Auto) 12.9 L [place] % (Auto) 9.5 Eos % (Auto) 0.2 Baso % (Auto) 0.2 Lymph # (Auto) 0.8 L [place] # (Auto) 0.6 Eos # (Auto) 0.0 Baso # (Auto) 0.0 Abs Immat Gran (auto) 0.02 Absolute Neuts (auto) 4.9 Absolute Nucleated RBC 0.000 Nucleated RBC % (auto) 0.0 Anion Gap Estim Creat Clear Calc Estimated GFR POC Glucose 107 Random Glucose Lactic Acid Lactic Acid Fup @ 2Hr Calcium Total Bilirubin Direct Bilirubin AST ALT Alkaline Phosphatase Total Protein Albumin COVID-19 (ELIZ) Negative COVID-19 Clin Com See Note 03/19/21 03/19/21 03/19/21 18:12 18:12 18:12 MCV MCH MCHC RDW Plt Count MPV Immature Gran % (Auto) Neut % (Auto) Lymph % (Auto) [place] % (Auto) Eos % (Auto) Baso % (Auto) Lymph # (Auto) [place] # (Auto) Eos # (Auto) Baso # (Auto) Abs Immat Gran (auto) Absolute Neuts (auto) Absolute Nucleated RBC Nucleated RBC % (auto) Anion Gap 20 Estim Creat Clear Calc 91.8 Estimated GFR > 60 POC Glucose Random Glucose 66 D Lactic Acid 2.4 H* Lactic Acid Fup @ 2Hr Calcium 9.3 Total Bilirubin 0.2 Direct Bilirubin < 0.2 AST 37 H D ALT 21 Alkaline Phosphatase 195 H Total Protein 8.7 H Albumin 4.0 COVID-19 (ELIZ) COVID-19 Clin Com 03/19/21 03/19/21 03/19/21 19:30 19:38 19:47 MCV MCH MCHC RDW Plt Count MPV Immature Gran % (Auto) Neut % (Auto) Lymph % (Auto) [place] % (Auto) Eos % (Auto) Baso % (Auto) Lymph # (Auto) [place] # (Auto) Eos # (Auto) Baso # (Auto) Abs Immat Gran (auto) Absolute Neuts (auto) Absolute Nucleated RBC Nucleated RBC % (auto) Anion Gap Estim Creat Clear Calc Estimated GFR POC Glucose 58 L* 60 59 L* Random Glucose Lactic Acid Lactic Acid Fup @ 2Hr Calcium Total Bilirubin Direct Bilirubin AST ALT Alkaline Phosphatase Total Protein Albumin COVID-19 (ELIZ) COVID-19 [employer] 03/19/21 03/19/21 03/19/21 20:02 20:17 20:46 MCV MCH MCHC RDW Plt Count MPV Immature Gran % (Auto) Neut % (Auto) Lymph % (Auto) [place] % (Auto) Eos % (Auto) Baso % (Auto) Lymph # (Auto) [place] # (Auto) Eos # (Auto) Baso # (Auto) Abs Immat Gran (auto) Absolute Neuts (auto) Absolute Nucleated RBC Nucleated RBC % (auto) Anion Gap Estim Creat Clear Calc Estimated GFR POC Glucose 152 H 164 H 200 H Random Glucose Lactic Acid Lactic Acid Fup @ 2Hr Calcium Total Bilirubin Direct Bilirubin AST ALT Alkaline Phosphatase Total Protein Albumin COVID-19 (ELIZ) COVID-19 Clin [employer]iv 03/19/21 03/19/21 03/19/21 21:05 21:10 21:17 MCV MCH MCHC RDW Plt Count MPV Immature Gran % (Auto) Neut % (Auto) Lymph % (Auto) [place] % (Auto) Eos % (Auto) Baso % (Auto) Lymph # (Auto) [place] # (Auto) Eos # (Auto) Baso # (Auto) Abs Immat Gran (auto) Absolute Neuts (auto) Absolute Nucleated RBC Nucleated RBC % (auto) Anion Gap 17 Estim Creat Clear Calc 93.8 Estimated GFR > 60 POC Glucose 218 H Random Glucose 226 H D Lactic Acid Lactic Acid Fup @ 2Hr 2.9 H* Calcium 9.0 Total Bilirubin Direct Bilirubin AST ALT Alkaline Phosphatase Total Protein Albumin COVID-19 (ELIZ) COVID-19 Clin Com 03/19/21 03/20/21 23:50 07:33 MCV MCH MCHC RDW Plt Count MPV Immature Gran % (Auto) Neut % (Auto) Lymph % (Auto) [place] % (Auto) Eos % (Auto) Baso % (Auto) Lymph # (Auto) [place] # (Auto) Eos # (Auto) Baso # (Auto) Abs Immat Gran (auto) Absolute Neuts (auto) Absolute Nucleated RBC Nucleated RBC % (auto) Anion Gap Estim Creat Clear Calc Estimated GFR POC Glucose 216 H 120 H Random Glucose Lactic Acid Lactic Acid Fup @ 2Hr Calcium Total Bilirubin Direct Bilirubin AST ALT Alkaline Phosphatase Total Protein Albumin COVID-19 (ELIZ) COVID-19 Clin Com Assessment and Plan (1) ESBL (extended spectrum beta-lactamase) producing bacteria infection: Status: Acute Assessment and Plan: This is a 50 yo F who is a resident of [facility] [place] and presents to the hospital with worsening lethargy, weakness and chills for the preceding 3 days prior to admission. She was diagnosed with UTI at [facility] and treated with oral antibiotics for several days prior to hospitalization. 1. ESBL E. Coli UTI Merrem, ID consult patient has not given urine sample in the hospital -- see above C&S from [facility] 2. Toxic/Metabolic Encephalopathy, present on admission multifactorial including infectious as well as hypothermia / hypoglycemia appears improved now 3. Uncontrolled DM with hypoglycemia on lantus AM and PM, will use only AM today -- decrease dose to 10 units starting tomorrow adjust sliding scale -- start coverage above 200 POC QIDAC 4. HyperK initial BMP was hemolyzed, repeat down to 5.9 await this AM results 5. TBI / Seizures continue anti-epileptics 6. Mood continue baseline meds 7. Hypothyroidism synthroid Full Code DVT pptx, subcut. heparin Quality Stroke Does the patient have a stroke diagnosis?: No VTE Prior VTE?: No VTE Risk Level:: Medical - moderate - high VTE Device Contraindication: Treatment Not Indicated VTE Drug Contraindication: N/A - Med Ordered
[2021-03-20 11:14] VITALS: BP 144/67; PULSE 84; RESP 16; TEMP 36.1; O2SAT 96
[2021-03-20 11:37] LABS: Glucose, Whole Blood 131 mg/dL (60-115)
--- NOTE | 2021-03-20 12:15 | MHC.CARE ---
CARE Team met with Pt following an SI statement. Pt denies current SI and does not recall making the statement. Pt reports she just wants to get along with everyone . Pt reported she will communicate with staff is she needs further mental health support. CARE Team spoke with Case Management who were in contact with [facility] who agree Pt does not need further mental health intervention at this time. CARE Team notifed Dr. Cobian
[2021-03-20 13:23] LABS: MANUAL DIFF FLAG NO
[2021-03-20 13:27] LABS: Basophils Percent Auto 0.2 % (0-2); Eosinophils Percent Auto 0.2 % (0-4); Hematocrit 33.7 % (37-47); Hemoglobin 10.5 g/dl (12.0-16.0); Imm Gran Abs Auto 0.01 X10*3/uL (0.00-0.03); Imm Gran Pct Auto 0.2 % (0.0-0.4); Lymphocytes Absolute Auto 1.1 X10*3/uL (1.2-4.9); Lymphocytes Percent Auto 22.7 % (20-40); Mean Corpuscular HGB Conc 31.2 g/dl (31.0-35.0); Mean Corpuscular Volume 89.9 fL (80-98); Mean Platelet Volume 10.6 fL (9.4-12.3); Monocytes Absolute Auto 0.5 X10*3/uL (0.1-1.2); Neutrophils Absolute Auto 3.1 X10*3/uL (2.0-8.3); Neutrophils Percent Auto 65.7 % (45-73); Platelet Count 187 X10*3/uL (160-400); Red Blood Count 3.75 X10*6/uL (4.20-5.50); Red Cell Distribution Width 15.1 % (11.0-16.0); White Blood Count 4.7 X10*3/uL (4.8-10.8)
[2021-03-20 13:48] LABS: Lactic Acid 1.5 mmol/L (0.5-2.0)
[2021-03-20 13:58] LABS: Anion Gap 16 (12-20); Blood Urea Nitrogen 19 mg/dL (9-16); Calcium 10.1 mg/dL (8.4-10.2); Carbon Dioxide 25 mmol/L (22-29); Chloride 109 mmol/L (96-108); Creatinine Clr Calc Pharmacy 100.3; Estimated Glomerular Filt Rate > 60; Glucose Random 108 mg/dL (60-115); Potassium 4.9 mmol/L (3.3-5.1); Sodium 145 mmol/L (135-145)
--- NOTE | 2021-03-20 14:03 | MHC.CLN ---
NUTRITION DIET CHANGED FROM DIABETIC 1800 KCAL TO DIABETIC 2000 KCAL. PROVIDES 25.9 KCAL/KG CMW.
[2021-03-20 15:56] VITALS: BP 133/60; PULSE 77; RESP 16; TEMP 36.1; O2SAT 95
[2021-03-20 16:47] LABS: Glucose, Whole Blood 114 mg/dL (60-115)
[2021-03-20 19:37] VITALS: BP 124/64; PULSE 79; RESP 18; TEMP 35.8; O2SAT 93
[2021-03-20 20:15] LABS: Glucose, Whole Blood 151 mg/dL (60-115)
[2021-03-20] MEDS: Atorvastatin Calcium 10 MG TABLET PO (20:21)
--- NOTE | 2021-03-20 21:25 | P.CNID_ITS ---
History of Present Illness Data of Consult Service Date: 03/20/21 Requesting physician: Daroin Cobian Primary Care Provider: Roby Roth DO HPI Reason for consult: ESBL UTI He presents from nursing facility with hypothermia He has had ESBL UTI sensitive to Macrobid and was taking as outpatient He comes for hypothermia and lethargy to hospital Review of Systems Review of Systems: Yes Unobtainable due to mental status PMFSH Past Medical History Medical History Anxiety COVID-19 Cystitis Dementia Diabetes Diabetic retinopathy ESBL (extended spectrum beta-lactamase) producing bacteria infection Essential (primary) hypertension Hyperkalemia Hyperlipidemia Hypothermia Hypothyroid Leiomyoma of body of uterus Long QT syndrome Mood disorder Preglaucoma Presbyopia Seizure disorder Sepsis Subarachnoid hemorrhage following injury TBI (traumatic brain injury) Unspecified dementia with behavioral disturbance UTI (urinary tract infection) Family History Family history: reviewed and not pertinent Social History Social History Household Members: Other Housing: [facility] Do you presently have visiting nurse or other home services: No (from [facility]) Alcohol intake: never Patient Tobacco Use Status: Never used Tobacco Advance Directives: Yes Advance Directives on File: Yes Advance Directives Date on File: 03/23/21 Patient : No service: No Current occupational status: disabled Meds Allergies Allergy/AdvReac Type Severity Reaction Status Date / Time chlorpromazine Allergy Intermediate HIVES Verified 12/10/20 21:05 [CHLORPROMAZINE] Active Medications: Current Medications Generic Name Dose Route Start Last Admin Trade Name Chenteq PRN Reason Stop Dose Admin Acetaminophen 650 mg 03/20/21 00:28 Acetaminophen 325 Mg Tablet PO Q6H PRN Pain, Mild (Pain Scale 1-3) Atorvastatin Calcium 10 mg 03/20/21 21:00 03/20/21 20:21 Atorvastatin Calcium 10 Mg Tablet PO 10 mg BEDTIME TOM Administration Benztropine Mesylate 1 mg 03/20/21 00:28 03/20/21 20:22 Benztropine Mesylate 1 Mg Tablet PO 1 mg BID TOM Administration Docusate Sodium 100 mg 03/20/21 09:00 03/20/21 20:21 Docusate Sodium 100 Mg Capsule PO 100 mg BID TOM Administration Docusate Sodium 100 mg 03/20/21 00:28 Docusate Sodium 100 Mg Capsule PO DAILY PRN Constipation Gabapentin 600 mg 03/20/21 09:00 03/20/21 20:21 Gabapentin 600 Mg Tablet PO 600 mg TID TOM Administration Haloperidol 5 mg 03/20/21 00:28 03/20/21 20:22 Haloperidol 5 Mg Tablet PO 5 mg BID TOM Administration Haloperidol 10 mg 03/20/21 00:28 03/20/21 20:21 Haloperidol 5 Mg Tablet PO 10 mg BID TOM Administration Heparin Sodium (Porcine) 5,000 unit 03/20/21 00:28 03/20/21 13:30 Heparin Sodium,Porcine 5,000 Unit/Ml Vial SUBCUT 5,000 unit Q12H [facility] Administration Meropenem 1 gm/ Sodium 100 mls @ 100 mls/hr 03/20/21 09:00 03/20/21 19:21 Chloride IV Infused Q8H [facility] Infusion Insulin Glargine 10 unit 03/21/21 09:00 Insulin Glargine,Hum.Rec.Anlog 100 Unit/Ml 10 Ml Vial SUBCUT DAILY [facility] Insulin Human Lispro 0 - 10 unit 03/20/21 07:30 03/20/21 20:25 Insulin Lispro 100 Unit/Ml 3 Ml Vial SUBCUT Not Given QIDACHS [facility] Protocol Levetiracetam 1,000 mg 03/20/21 00:28 03/20/21 20:22 Levetiracetam 1,000 Mg Tablet PO 1,000 mg BID [facility] Administration Levothyroxine Sodium 25 mcg 03/21/21 06:30 Levothyroxine Sodium 25 Mcg Tablet PO SuMoTuThFrSa@0630 [facility] Levothyroxine Sodium 150 mcg 03/21/21 06:30 Levothyroxine Sodium 150 Mcg Tablet PO SuMoTuThFrSa@0630 [facility] Ondansetron HCl 4 mg 03/20/21 00:28 Ondansetron Hcl 4 Mg/2 Ml Vial IVPUSH Q8H PRN Nausea and Vomiting Oxcarbazepine 150 mg 03/20/21 00:28 03/20/21 20:21 Oxcarbazepine 150 Mg Tablet PO 150 mg BID TOM Administration Phenytoin Sodium 200 mg 03/20/21 09:00 03/20/21 20:22 Phenytoin Sodium Extended 100 Mg Capsule PO 200 mg BID [facility] Administration Quetiapine Fumarate 50 mg 03/20/21 09:00 03/20/21 20:21 Quetiapine Fumarate 50 Mg Tablet PO 50 mg BID TOM Administration Senna 8.6 mg 03/20/21 09:00 03/20/21 08:42 Sennosides 8.6 Mg Tablet PO 8.6 mg DAILY TOM Administration Sodium Biphosphate/Sodium Phosphate 118 ml 03/20/21 00:28 Sodium Phosphate,[place]-Dibasic 133 Ml Enema [place] DAILY PRN Constipation Sodium Chloride 3 ml 03/20/21 00:28 03/20/21 17:33 0.9 % Sodium Chloride Flush 3 Ml Syringe IVFLUSH 3 ml QSHIFT TOM Administration Home Medications Medication Instructions Recorded Confirmed Last Taken Type acetaminophen 325 mg tablet 650 mg PO Q6H PRN 03/19/21 03/19/21 Unknown History atorvastatin 10 mg tablet 10 mg PO BEDTIME 03/19/21 03/19/21 Unknown History benztropine 1 mg tablet 1 mg PO BID 03/19/21 03/19/21 Unknown History docusate sodium 100 mg capsule 100 mg PO BID 03/19/21 03/19/21 Unknown History ferrous sulfate 325 mg (65 mg 325 mg PO DAILY 03/19/21 03/19/21 Unknown History iron) tablet gabapentin 600 mg tablet 600 mg PO TID 03/19/21 03/19/21 Unknown History glucagon 1 mg solution for 1 mg IM DAILY PRN 03/19/21 03/20/21 Unknown History injection haloperidol 10 mg tablet 10 mg PO BID 03/19/21 03/19/21 Unknown History haloperidol 5 mg tablet 5 mg PO BID 03/19/21 03/19/21 Unknown History ibuprofen 600 mg tablet 600 mg PO Q8H PRN 03/19/21 03/19/21 Unknown History insulin glargine 100 unit/mL (3 15 unit SUBCUT BEDTIME 03/19/21 03/19/21 Unknown History mL) subcutaneous pen (Lantus Solostar U-100 Insulin) levetiracetam 1,000 mg tablet 1,000 mg PO BID 03/19/21 03/19/21 Unknown History levothyroxine 150 mcg tablet 150 mcg PO SUMOTUTHFRSA@62903/19/21 03/20/21 Unknown History levothyroxine 25 mcg tablet 25 mcg PO SUMOTUTHFR@0630 03/19/21 03/20/21 Unknown History metformin 1,000 mg tablet 1,000 mg PO BID 03/19/21 03/19/21 Unknown History oxcarbazepine 150 mg tablet 150 mg PO BID 03/19/21 03/19/21 Unknown History phenytoin sodium extended 200 mg 200 mg PO BID 03/19/21 03/19/21 Unknown History capsule quetiapine 50 mg tablet 50 mg PO BID 03/19/21 03/19/21 Unknown History sennosides 8.6 mg tablet (senna) 8.6 mg PO Q24H PRN 03/19/21 03/20/21 Unknown History sodium phosphates 19 gram-7 118 ml NC DAILY PRN 03/19/21 03/19/21 Unknown History gram/118 mL enema (Fleet Enema) chlorpheniramine maleate 2 mg/5 mL 4 mg PO Q4H PRN 03/20/21 03/20/21 Unknown History oral liquid cholecalciferol (vitamin D3) 1,250 1,250 mcg PO QMONTH 03/20/21 03/20/21 Unknown History mcg (50,000 unit) capsule cholecalciferol (vitamin D3) 1,250 1,250 mcg PO QMONTH 03/20/21 03/20/21 Unknown History mcg (50,000 unit) capsule insulin aspart U-100 100 unit/mL See Protocol SUBCUT QIDACHS 03/20/21 03/20/21 Unknown History subcutaneous cartridge (Novolog PenFill U-100 Insulin aspart) Physical Exam Vital Signs: Vital Signs: Last Vital Signs Temp 96.5 F L 03/20/21 19:37 Pulse 79 03/20/21 19:37 Resp 18 03/20/21 19:37 BP 124/64 03/20/21 19:37 Pulse Ox 93 03/20/21 19:37 Body Mass Index 36.1 Const: General: ill appearing HENMT: Head: Yes normal to inspection Mouth: Normal oral and palatal mucosa present Resp: Effort & Inspection: normal respiratory effort Cardio: Rate: regular rate Rhythm: regular rhythm GI: Palpation (GI): Soft to palpation and nontender Extrem: Other: contracted Results Labs CBC & Chem 7: 03/20/21 13:20 03/20/21 13:20 Labs: Short CBC 03/20/21 Range/Units 13:20 WBC 4.7 L (4.8-10.8) X10*3/uL Hgb 10.5 L (12.0-16.0) g/dl Hct 33.7 L (37-47) % Plt Count 187 (160-400) X10*3/uL BMP 03/19/21 03/20/21 21:10 13:20 Sodium 140 145 Potassium 5.9 H D 4.9 Chloride 112 H 109 H Carbon Dioxide 17 L 25 BUN 21 H 19 H Creatinine 0.94 0.88 Calcium 9.0 10.1 D Microbiology Microbiology Results: Microbiology 03/19/21 18:12 Blood - Venous Blood Culture - Preliminary No growth after 24 hours. 03/19/21 15:42 Blood - Venous Blood Culture - Preliminary No growth after 24 hours. Assessment and Plan (1) ESBL (extended spectrum beta-lactamase) producing bacteria infection: Status: Acute There is concern over nonresponding UTI It is ESBL Suggest Continue Merem Await final culture He may need 14 days total Ertapenem (2) UTI (urinary tract infection): Qualifiers: Hematuria presence: without hematuria Urinary tract infection type: acute cystitis Qualified Code(s): N30.00 - Acute cystitis without hematuria Status: Acute (3) Weakness: Status: Resolved
[2021-03-20 23:54] VITALS: BP 136/62; PULSE 84; RESP 16; TEMP 37.1; O2SAT 98
[2021-03-21] MEDS: Heparin Sodium,Porcine 5,000 UNIT/ML VIAL 5000 UNIT SUBCUT (00:05)
[2021-03-21] MEDS: 0.9 % Sodium Chloride Flush 3 ML SYRINGE IVFLUSH ×4 (00:06→20:35)
[2021-03-21 04:00] VITALS: BP 136/76; PULSE 74; RESP 16; TEMP 36.1; O2SAT 98
[2021-03-21] MEDS: Levothyroxine Sodium 25 MCG TABLET PO (05:18)
[2021-03-21] MEDS: Levothyroxine Sodium 150 MCG TABLET PO (05:18)
[2021-03-21 07:23] VITALS: BP 155/78; PULSE 74; RESP 18; TEMP 36.7; O2SAT 98
[2021-03-21 07:43] LABS: Glucose, Whole Blood 88 mg/dL (60-115)
[2021-03-21] MEDS: levETIRAcetam 1,000 MG TABLET 1000 MG PO ×2 (09:13→20:34)
[2021-03-21] MEDS: Phenytoin Sodium Extended 100 MG CAPSULE 200 MG PO ×2 (09:13→20:34)
[2021-03-21] MEDS: HaloperidoL 5 MG TABLET PO ×2 (09:13→20:35)
[2021-03-21] MEDS: Benztropine Mesylate 1 MG TABLET PO ×2 (09:13→20:35)
[2021-03-21] MEDS: HaloperidoL 5 MG TABLET 10 MG PO ×2 (09:13→20:35)
[2021-03-21] MEDS: OXcarbazepine 150 MG TABLET PO ×2 (09:13→20:34)
[2021-03-21] MEDS: QUEtiapine Fumarate 50 MG TABLET PO ×2 (09:13→20:35)
[2021-03-21] MEDS: Gabapentin 600 MG TABLET PO ×3 (09:13→20:34)
[2021-03-21] MEDS: Sennosides 8.6 MG TABLET PO (09:13)
[2021-03-21] MEDS: Docusate Sodium 100 MG CAPSULE PO ×2 (09:14→20:35)
[2021-03-21] MEDS: Insulin Glargine,Hum.rec.anlog 100 UNIT/ML 10 ML VIAL 10 UNIT SUBCUT (09:14)
[2021-03-21 09:17] LABS: Glucose, Whole Blood 176 mg/dL (60-115)
--- NOTE | 2021-03-21 11:19 | HO.PM.IMPN ---
Subjective Subjective Date of Service: 03/21/21 Interval History: seen and examined denies pain doesnt want another IV or blood draws denies SI Review of Systems General - no fevers or chills Cardiovascular - no chest pain Respiratory - no shortness of breath or cough Abdominal- no abdominal pain, nausea, vomiting, diarrhea Physical Exam Vital Signs: Vital Signs: Last Vital Signs Temp 98.0 F 03/21/21 07:23 Pulse 74 03/21/21 07:23 Resp 18 03/21/21 07:23 BP 155/78 H 03/21/21 07:23 Pulse Ox 98 03/21/21 07:23 Body Mass Index 36.1 Objective Data Current Medications Generic Name Dose Route Start Last Admin Trade Name Freq PRN Reason Stop Dose Admin Acetaminophen 650 mg 03/20/21 00:28 Acetaminophen 325 Mg Tablet PO Q6H PRN Pain, Mild (Pain Scale 1-3) Atorvastatin Calcium 10 mg 03/20/21 21:00 03/20/21 20:21 Atorvastatin Calcium 10 Mg Tablet PO 10 mg BEDTIME TOM Administration Benztropine Mesylate 1 mg 03/20/21 00:28 03/21/21 09:13 Benztropine Mesylate 1 Mg Tablet PO 1 mg BID TOM Administration Docusate Sodium 100 mg 03/20/21 09:00 03/21/21 09:14 Docusate Sodium 100 Mg Capsule PO 100 mg BID TOM Administration Docusate Sodium 100 mg 03/20/21 00:28 Docusate Sodium 100 Mg Capsule PO DAILY PRN Constipation Gabapentin 600 mg 03/20/21 09:00 03/21/21 09:13 Gabapentin 600 Mg Tablet PO 600 mg TID TOM Administration Haloperidol 5 mg 03/20/21 00:28 03/21/21 09:13 Haloperidol 5 Mg Tablet PO 5 mg BID TOM Administration Haloperidol 10 mg 03/20/21 00:28 03/21/21 09:13 Haloperidol 5 Mg Tablet PO 10 mg BID TOM Administration Heparin Sodium (Porcine) 5,000 unit 03/20/21 00:28 03/21/21 00:05 Heparin Sodium,Porcine 5,000 Unit/Ml Vial SUBCUT 5,000 unit Q12H TOM Administration Meropenem 1 gm/ Sodium 100 mls @ 100 mls/hr 03/20/21 09:00 03/21/21 10:38 Chloride IV Infused Q8H [facility]OM Infusion Insulin Glargine 10 unit 08/03/21 09:00 03/21/21 09:14 Insulin Glargine,Hum.Rec.Anlog 100 Unit/Ml 10 Ml Vial SUBCUT 10 unit DAILY TOM Administration Insulin Human Lispro 0 - 10 unit 03/20/21 07:30 03/21/21 07:46 Insulin Lispro 100 Unit/Ml 3 Ml Vial SUBCUT Not Given QIDACHS [facility] Protocol Levetiracetam 1,000 mg 03/20/21 00:28 03/21/21 09:13 Levetiracetam 1,000 Mg Tablet PO 1,000 mg BID TOM Administration Levothyroxine Sodium 25 mcg 03/21/21 06:30 03/21/21 05:18 Levothyroxine Sodium 25 Mcg Tablet PO 25 mcg SuMoTuThFrSa@0630 TOM Administration Levothyroxine Sodium 150 mcg 03/21/21 06:30 03/21/21 05:18 Levothyroxine Sodium 150 Mcg Tablet PO 150 mcg SuMoTuThFrSa@0630 [facility] Administration Ondansetron HCl 4 mg 03/20/21 00:28 Ondansetron Hcl 4 Mg/2 Ml Vial IVPUSH Q8H PRN Nausea and Vomiting Oxcarbazepine 150 mg 03/20/21 00:28 03/21/21 09:13 Oxcarbazepine 150 Mg Tablet PO 150 mg BID TOM Administration Phenytoin Sodium 200 mg 03/20/21 09:00 03/21/21 09:13 Phenytoin Sodium Extended 100 Mg Capsule PO 200 mg BID TOM Administration Quetiapine Fumarate 50 mg 03/20/21 09:00 03/21/21 09:13 Quetiapine Fumarate 50 Mg Tablet PO 50 mg BID [facility] Administration Senna 8.6 mg 03/20/21 09:00 03/21/21 09:13 Sennosides 8.6 Mg Tablet PO 8.6 mg DAILY [facility] Administration Sodium Biphosphate/Sodium Phosphate 118 ml 03/20/21 00:28 Sodium Phosphate,[place]-Dibasic 133 Ml Enema [place] DAILY PRN Constipation Sodium Chloride 3 ml 03/20/21 00:28 03/21/21 09:15 0.9 % Sodium Chloride Flush 3 Ml Syringe IVFLUSH 3 ml QSHIFT [facility] Administration Labs CBC & Chem 7: 03/20/21 13:20 03/20/21 13:20 Labs: Laboratory Results - last 24 hr 03/20/21 03/20/21 03/20/21 11:31 13:20 13:20 MCV 89.9 MCH 28.0 MCHC 31.2 RDW 15.1 Plt Count 187 MPV 10.6 Immature Gran % (Auto) 0.2 Neut % (Auto) 65.7 Lymph % (Auto) 22.7 [place] % (Auto) 11.0 Eos % (Auto) 0.2 Baso % (Auto) 0.2 Lymph # (Auto) 1.1 L [place] # (Auto) 0.5 Eos # (Auto) 0.0 Baso # (Auto) 0.0 Abs Immat Gran (auto) 0.01 Absolute Neuts (auto) 3.1 Absolute Nucleated RBC 0.000 Nucleated RBC % (auto) 0.0 Anion Gap 16 Estim Creat Clear Calc 100.3 Estimated GFR > 60 POC Glucose 131 H Random Glucose 108 D Lactic Acid Calcium 10.1 D 03/20/21 03/20/21 03/20/21 13:20 16:40 20:10 MCV MCH MCHC RDW Plt Count MPV Immature Gran % (Auto) Neut % (Auto) Lymph % (Auto) [place] % (Auto) Eos % (Auto) Baso % (Auto) Lymph # (Auto) [place] # (Auto) Eos # (Auto) Baso # (Auto) Abs Immat Gran (auto) Absolute Neuts (auto) Absolute Nucleated RBC Nucleated RBC % (auto) Anion Gap Estim Creat Clear Calc Estimated GFR POC Glucose 114 151 H Random Glucose Lactic Acid 1.5 Calcium 03/21/21 03/21/21 07:24 09:12 MCV MCH MCHC RDW Plt Count MPV Immature Gran % (Auto) Neut % (Auto) Lymph % (Auto) [place] % (Auto) Eos % (Auto) Baso % (Auto) Lymph # (Auto) [place] # (Auto) Eos # (Auto) Baso # (Auto) Abs Immat Gran (auto) Absolute Neuts (auto) Absolute Nucleated RBC Nucleated RBC % (auto) Anion Gap Estim Creat Clear Calc Estimated GFR POC Glucose 88 176 H Random Glucose Lactic Acid Calcium Microbiology Microbiology Results: Microbiology 03/19/21 18:12 Blood Culture - Preliminary Blood - Venous No growth after 24 hours. 03/19/21 15:42 Blood Culture - Preliminary Blood - Venous No growth after 24 hours. Assessment and Plan (1) ESBL (extended spectrum beta-lactamase) producing bacteria infection: Status: Acute Assessment and Plan: This is a 50 yo F who is a resident of [facility] and presents to the hospital with worsening lethargy, weakness and chills for the preceding 3 days prior to admission. She was diagnosed with UTI at [facility] and treated with oral antibiotics for several days prior to hospitalization. 1. ESBL E. Coli UTI Merrem, ID consult appreciated -- likely 14d Invanz patient has not given urine sample in the hospital await negative blood cx at 48 hours, then will place Midline. 2. Toxic/Metabolic Encephalopathy, present on admission multifactorial including infectious as well as hypothermia / hypoglycemia improved 3. Uncontrolled DM with hypoglycemia continue current regime no significant hypo or hyperglycemic episodes 4. HyperK resolved 5. TBI / Seizures continue anti-epileptics 6. Mood / SI no further SI continue baseline meds seen by CARE team -- no further mental health interventions needed. 7. Hypothyroidism synthroid Full Code DVT pptx, subcut. heparin Quality Stroke Does the patient have a stroke diagnosis?: No VTE Prior VTE?: No VTE Risk Level:: Medical - moderate - high VTE Device Contraindication: Treatment Not Indicated VTE Drug Contraindication: N/A - Med Ordered
[2021-03-21 11:41] LABS: Glucose, Whole Blood 169 mg/dL (60-115)
[2021-03-21 15:47] VITALS: BP 148/77; PULSE 76; RESP 20; TEMP 36; O2SAT 97
[2021-03-21 16:36] LABS: Glucose, Whole Blood 281 mg/dL (60-115)
[2021-03-21] MEDS: Insulin Lispro 100 UNIT/ML 3 ML VIAL SUBCUT (17:01)
[2021-03-21 19:20] VITALS: BP 178/96; PULSE 75; RESP 18; TEMP 35.7; O2SAT 97
[2021-03-21] MEDS: Atorvastatin Calcium 10 MG TABLET PO (20:35)
[2021-03-21 20:55] LABS: Glucose, Whole Blood 70 mg/dL (60-115)
[2021-03-21 23:18] VITALS: BP 116/49; PULSE 64; RESP 18; TEMP 36.1; O2SAT 99
[2021-03-22 04:00] VITALS: BP 125/66; PULSE 72; RESP 18; TEMP 35.8; O2SAT 100
[2021-03-22 07:23] LABS: Glucose, Whole Blood 38 mg/dL (60-115)
[2021-03-22 07:37] VITALS: BP 171/81; PULSE 83; RESP 18; TEMP 36.2; O2SAT 100
[2021-03-22] MEDS: QUEtiapine Fumarate 50 MG TABLET PO (08:20)
[2021-03-22] MEDS: levETIRAcetam 1,000 MG TABLET 1000 MG PO (08:20)
[2021-03-22] MEDS: Phenytoin Sodium Extended 100 MG CAPSULE 200 MG PO (08:21)
[2021-03-22] MEDS: Sennosides 8.6 MG TABLET PO (08:21)
[2021-03-22] MEDS: HaloperidoL 5 MG TABLET PO (08:21)
[2021-03-22] MEDS: Gabapentin 600 MG TABLET PO ×2 (08:21→15:07)
[2021-03-22] MEDS: Docusate Sodium 100 MG CAPSULE PO (08:21)
[2021-03-22] MEDS: HaloperidoL 5 MG TABLET 10 MG PO (08:21)
[2021-03-22] MEDS: OXcarbazepine 150 MG TABLET PO (08:21)
[2021-03-22] MEDS: 0.9 % Sodium Chloride Flush 3 ML SYRINGE IVFLUSH ×2 (08:22→15:08)
[2021-03-22] MEDS: Benztropine Mesylate 1 MG TABLET PO (08:28)
[2021-03-22 08:42] LABS: Glucose, Whole Blood 104 mg/dL (60-115)
--- NOTE | 2021-03-22 10:03 | P.DS_ITS ---
DS: Providers Provider Date of Service: 03/22/21 Date of admission: 03/19/21 23:10 Primary care physician: Roby Roth DO Consults: 03/19/21 15:09 Consult to Infectious Diseases Routine Consulting Provider: Shannan Rios Reason for consultation: ESBL UTI 03/20/21 00:28 Consult to Infectious Diseases Routine Consulting Provider: Shannan Rios Reason for consultation: ESBL Has provider been notified: No 03/20/21 06:12 Consult to Crisis Stat Reason for consultation: made SI Has provider been notified: No DS: Diagnosis Discharge Diagnosis (1) ESBL (extended spectrum beta-lactamase) producing bacteria infection: Status: Acute DS: Medications Discharge Medications Home Medications: Home Medications Medication Instructions Recorded Confirmed acetaminophen 325 mg tablet 650 mg PO Q6H PRN 03/19/21 03/19/21 atorvastatin 10 mg tablet 10 mg PO BEDTIME 03/19/21 03/19/21 benztropine 1 mg tablet 1 mg PO BID 03/19/21 03/19/21 docusate sodium 100 mg capsule 100 mg PO BID 03/19/21 03/19/21 ferrous sulfate 325 mg (65 mg 325 mg PO DAILY 03/19/21 03/19/21 iron) tablet gabapentin 600 mg tablet 600 mg PO TID 03/19/21 03/19/21 glucagon 1 mg solution for 1 mg IM DAILY PRN 03/19/21 03/20/21 injection haloperidol 10 mg tablet 10 mg PO BID 03/19/21 03/19/21 haloperidol 5 mg tablet 5 mg PO BID 03/19/21 03/19/21 ibuprofen 600 mg tablet 600 mg PO Q8H PRN 03/19/21 03/19/21 insulin glargine 100 unit/mL (3 15 unit SUBCUT BEDTIME 03/19/21 03/19/21 mL) subcutaneous pen (Lantus Solostar U-100 Insulin) levetiracetam 1,000 mg tablet 1,000 mg PO BID 03/19/21 03/19/21 levothyroxine 150 mcg tablet 150 mcg PO SUMOTUTHFRSA@30 03/19/21 03/20/21 levothyroxine 25 mcg tablet 25 mcg PO SUMOTUTHFRSA@62903/19/21 03/20/21 metformin 1,000 mg tablet 1,000 mg PO BID 03/19/21 03/19/21 oxcarbazepine 150 mg tablet 150 mg PO BID 03/19/21 03/19/21 phenytoin sodium extended 200 mg 200 mg PO BID 03/19/21 03/19/21 capsule quetiapine 50 mg tablet 50 mg PO BID 03/19/21 03/19/21 sennosides 8.6 mg tablet (senna) 8.6 mg PO Q24H PRN 03/19/21 03/20/21 sodium phosphates 19 gram-7 118 ml PA DAILY PRN 03/19/21 03/19/21 gram/118 mL enema (Fleet Enema) chlorpheniramine maleate 2 mg/5 mL 4 mg PO Q4H PRN 03/20/21 03/20/21 oral liquid cholecalciferol (vitamin D3) 1,250 1,250 mcg PO QMONTH 03/20/21 03/20/21 mcg (50,000 unit) capsule cholecalciferol (vitamin D3) 1,250 1,250 mcg PO QMONTH 03/20/21 03/20/21 mcg (50,000 unit) capsule insulin aspart U-100 100 unit/mL See Protocol SUBCUT QIDACHS 03/20/21 03/20/21 subcutaneous cartridge (Novolog PenFill U-100 Insulin aspart) Previous Rx's Medication Instructions Recorded ertapenem 1 gram solution for 1 g IV DAILY #11 ea 03/22/21 injection (Invanz) insulin glargine 100 unit/mL 10 unit SUBCUT DAILY #1 ml 03/22/21 subcutaneous solution (Lantus U-100 Insulin) DS: Summary Hospital Course Hospital Course: Final discharge diagnosis 1. ESBL E coli UTI 2. Toxic/metabolic encephalopathy 3. Uncontrolled diabetes with hypoglycemia 4. Hyperkalemia 5. TBI/seizures 6. SI 7. Hypthyroidism Patient presented to the hospital with lethargy and had a known history of ESBL E coli UTI which was being treated at the half-way facility. She was also noted to be hypoglycemic. She was treated with IV meropenem and had blood cultures drawn but unfortunately would not give urine sample. She was evaluated by Infectious Disease who recommended total 14 days of IV Invanz. Since she has completed 3 days of Merrem, will discharged on 11 more days of Invanz. In regards to her IV access, patient continued to decline midline placement and her case was discussed by our case management team here with [facility]. Plan will be for midline placement there. Given a dose of Invanz prior to transfer back. In regards to the patient's diabetes, her metformin was held. Her Lantus dosing was decreased to 10 units daily which she will be discharged on. Will hold her nighttime Lantus which can be restarted as she returns back to half-way facility and her sugars get to her baseline. Lastly, patient reported some SI whie in the ? ED. She was evaluated by Care team and cleared for d/c. Time Spent with Patient Time attestation: Total time spent providing and/or coordinating discharge services: Discharge coordination time: Greater than 30 minutes Quality: Stroke Does the patient have a stroke diagnosis?: No Physical Exam Vital Signs: Vital Signs: Last Vital Signs Temp 97.2 F 03/22/21 07:37 Pulse 83 03/22/21 07:37 Resp 18 03/22/21 07:37 BP 171/81 H 03/22/21 07:37 Pulse Ox 100 03/22/21 07:37 Body Mass Index 36.1 Const: Other: General - no acute distress, appears comfortable Cardiovascular - regular rate and rhythm, S1-S2 Lungs - normal respiratory effort, clear to auscultation bilaterally, no wheezing Abdomen - soft, nontender, no rebound or guarding Extremities - no edema bilaterally Neuro - awake and alert, no focal deficits DS: Data Data Completed and Pending Labs on day of discharge: Laboratory Results - last 24 hr 03/21/21 03/21/21 03/21/21 11:19 16:18 20:17 POC Glucose 169 H 281 H 70 03/22/21 03/22/21 07:20 07:55 POC Glucose 38 L* 104 Preliminary micro results at discharge 03/19/21 18:12 Blood Culture - Preliminary Blood - Venous No growth after 48 hours. 03/19/21 15:42 Blood Culture - Preliminary Blood - Venous No growth after 48 hours. Discharge Plan Discharge Patient Disposition: [facility] Discharge Diagnosis: ESBL E. Coli UTI Referrals: Roby Roth DO [Primary Care Provider] - 1 Week Discharge Medications: New Lantus U-100 Insulin 100 unit/mL Solution 10 unit subcut DAILY Qty: 1 RF: 0 ertapenem [Invanz] 1 gram recon soln 1 g IV DAILY Qty: 11 RF: 0 Continued acetaminophen 325 mg Tablet 650 mg PO Q6H PRN (Reason: Fever Or Pain) RF: 0 atorvastatin 10 mg Tablet 10 mg PO BEDTIME RF: 0 benztropine 1 mg Tablet 1 mg PO BID RF: 0 gabapentin 600 mg Tablet 600 mg PO TID RF: 0 haloperidol 5 mg Tablet 5 mg PO BID RF: 0 levothyroxine 25 mcg Tablet 25 mcg PO SUMOTUTHFRSA@0630 RF: 0 ferrous sulfate 325 mg (65 mg iron) Tablet 325 mg PO DAILY RF: 0 metformin 1,000 mg Tablet 1,000 mg PO BID RF: 0 levothyroxine 150 mcg Tablet 150 mcg PO SUMOTUTHFRSA@0630 RF: 0 haloperidol 10 mg Tablet 10 mg PO BID RF: 0 Fleet Enema 19-7 gram/118 mL Enema 118 ml PA DAILY PRN (Reason: Constipation) RF: 0 docusate sodium 100 mg Capsule 100 mg PO BID RF: 0 glucagon 1 mg Recon Soln 1 mg IM DAILY PRN (Reason: Hypoglycemia) RF: 0 ibuprofen 600 mg Tablet 600 mg PO Q8H PRN (Reason: Pain) RF: 0 levetiracetam 1,000 mg Tablet 1,000 mg PO BID RF: 0 oxcarbazepine 150 mg Tablet 150 mg PO BID RF: 0 sennosides [senna] 8.6 mg Tablet 8.6 mg PO Q24H PRN (Reason: Constipation) RF: 0 phenytoin sodium extended 200 mg Capsule 200 mg PO BID RF: 0 quetiapine 50 mg Tablet 50 mg PO BID RF: 0 insulin aspart U-100 [Novolog PenFill U-100 Insulin] 100 unit/mL Cartridge See Protocol sliding scale dose SUBCUT QIDACHS RF: 0 cholecalciferol (vitamin D3) 1,250 mcg (50,000 unit) Capsule 1,250 mcg PO QMONTH RF: 0 cholecalciferol (vitamin D3) 1,250 mcg (50,000 unit) Capsule 1,250 mcg PO QMONTH RF: 0 chlorpheniramine maleate 2 mg/5 mL Liquid 4 mg PO Q4H PRN (Reason: Cough) RF: 0 Held Lantus Solostar U-100 Insulin 100 unit/mL (3 mL) Insulin Pen 15 unit SUBCUT BEDTIME RF: 0 Hold Instructions: Resume on 08/11/21. Discontinued nitrofurantoin monohyd/m-cryst [Macrobid] 100 mg Capsule 100 mg PO BID RF: 0 Lantus Solostar U-100 Insulin 100 unit/mL (3 mL) Insulin Pen 20 unit SUBCUT QAM RF: 0 Discharge Orders: Discharge Order (Routine); Ordered 03/22/21 Ordered By: Darion Cobian Diet: advance to usual diet Activity on Discharge: As tolerated Stand Alone Forms: Patient Portal Discharge page Care Plan Goals: To stay healthy and out of the hospital. Health Concerns: ESBL E. Coli UTI Plan of Treatment: Take 11 more days Invanz daily Assessment: 50 yo F admitted for ESBL UTI, improved with Rx with Merrem. Will be d/c on 11 days of invanz. Also noted to be hypoglycemic. See d/c summary to lantus / sliding scale used in the hospital
[2021-03-22 11:13] LABS: COVID-19 Test Negative (Negative); IDNOW Serial# 9DD0AD1C
[2021-03-22 11:31] LABS: Glucose, Whole Blood 178 mg/dL (60-115)
[2021-03-22 11:42] VITALS: BP 140/81; PULSE 62; RESP 18; TEMP 36.7; O2SAT 100
--- NOTE | 2021-03-22 13:30 | MHC.CM.PN ---
nurse post anesthesia care unit nurse note electronic medical record reviewed along with case discussed with [facility] nurse and hospitalist also spoke with teresita tucker she informed me that they can place a midline access iv for patient and they checked with the pharmacy and they have invantz 1 gm avaiable to ginacho her adanight , clinical and discharge instructions and discharge summary sent to them , kavita cohen 19 update given to them discharge plan return back to [facility] unit to [facility] transported via [facility] at 3;30 i tried to reach patients health care proxy next of kin carly [phone] but her phone mailbox was empty . call back to [facility] and spoke with marilee once patient has return back to the unit they will call carly and willie her of the discharge
== END 2021-03-22 15:45 | DRG 463 ==
LOC: HO.ED 21:48 → HO.EDOVER 23:19 → HO.S3 23:25
PROVIDERS: Admitting Provider Internal Medicine; Emergency Provider Internal Medicine; PCP Hospitalist; Visit Provider Family Medicine
DX: N39.0 Urinary tract infection, site not specified (principal); G92 Toxic encephalopathy; E11.649 Type 2 diabetes mellitus with hypoglycemia without coma; E87.5 Hyperkalemia; R45.851 Suicidal ideations; E78.5 Hyperlipidemia, unspecified; E03.9 Hypothyroidism, unspecified; G40.909 Epilepsy, unspecified, not intractable, without status epilepticus; F39 Unspecified mood [affective] disorder; B96.20 Unspecified Escherichia coli [E. coli] as the cause of diseases classified elsewhere; Z16.12 Extended spectrum beta lactamase (ESBL) resistance; Z87.820 Personal history of traumatic brain injury; Z20.822 Contact with and (suspected) exposure to COVID-19; Z79.1 Long term (current) use of non-steroidal anti-inflammatories (NSAID); Z79.4 Long term (current) use of insulin; Z79.890 Hormone replacement therapy; Z79.899 Other long term (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
CPT/HCPCS: 36415; 80048; 80076; 82947; 83605; 85025; 87040; 87635; 93005; 99285; J0610; J1335; J2185

== ENCOUNTER 2021-03-28 20:03 | Emergency (ER) | payer MEDICAID, SELFPAY ==
[2021-03-28 20:09] VITALS: BP 134/72; BP 140/68; PULSE 76; PULSE 80; RESP 18; TEMP 36.9; O2SAT 96; O2SAT 99; BMI 33.9
--- NOTE | 2021-03-28 20:19 | PC.NURSE ---
patient awake/alert, pt states she does not want any IV, pt aware she is in a hospital but was unable to say what hospital or where, unsure of date, vitals currently stable, pt refusing to change to hospital gown, refusing blanket, will continue to monitor.
[2021-03-28 20:48] LABS: Glucose, Whole Blood 179 mg/dL (60-115)
--- NOTE | 2021-03-28 20:51 | ED.GENADULT ---
HPI - General Adult General Chief complaint: General Medical Stated complaint: confusion and weakness Time Seen by Provider: 03/28/21 20:51 Source: patient and EMS Mode of arrival: EMS Limitations: no limitations History of Present Illness HPI narrative: 50 years old from [facility] for evaluation of generalized weakness and reportedly confusion. This is a 50-year-old female with history of TBI, patient recently was hospitalized for treating the UTI, patient adamantly refusing IV access or checking blood work, patient is giving a whole history and patient do not think that she is confused. Patient declined chest pain, no abdominal pain, no lower extremity swelling or tenderness. Patient had vital signs that is not consistent with SIRS, patient is only willing to give urine sample if she drink water patient refusing [facility] and refusing to give blood. Related Data Home Medications Medication Instructions Recorded Confirmed acetaminophen 325 mg tablet 650 mg PO Q6H PRN 03/19/21 03/19/21 atorvastatin 10 mg tablet 10 mg PO BEDTIME 03/19/21 03/19/21 benztropine 1 mg tablet 1 mg PO BID 03/19/21 03/19/21 docusate sodium 100 mg capsule 100 mg PO BID 03/19/21 03/19/21 ferrous sulfate 325 mg (65 mg 325 mg PO DAILY 03/19/21 03/19/21 iron) tablet gabapentin 600 mg tablet 600 mg PO TID 03/19/21 03/19/21 glucagon 1 mg solution for 1 mg IM DAILY PRN 03/19/21 03/20/21 injection haloperidol 10 mg tablet 10 mg PO BID 03/19/21 03/19/21 haloperidol 5 mg tablet 5 mg PO BID 03/19/21 03/19/21 ibuprofen 600 mg tablet 600 mg PO Q8H PRN 03/19/21 03/19/21 insulin glargine 100 unit/mL (3 15 unit SUBCUT BEDTIME 03/19/21 03/19/21 mL) subcutaneous pen (Lantus Solostar U-100 Insulin) levetiracetam 1,000 mg tablet 1,000 mg PO BID 03/19/21 03/19/21 levothyroxine 150 mcg tablet 150 mcg PO SUMOTUTHFRSA@0630 03/19/21 03/20/21 levothyroxine 25 mcg tablet 25 mcg PO SUMOTUTHFRSA@62903/19/21 03/20/21 metformin 1,000 mg tablet 1,000 mg PO BID 03/19/21 03/19/21 oxcarbazepine 150 mg tablet 150 mg PO BID 03/19/21 03/19/21 phenytoin sodium extended 200 mg 200 mg PO BID 03/19/21 03/19/21 capsule quetiapine 50 mg tablet 50 mg PO BID 03/19/21 03/19/21 sennosides 8.6 mg tablet (senna) 8.6 mg PO Q24H PRN 03/19/21 03/20/21 sodium phosphates 19 gram-7 118 ml RI DAILY PRN 03/19/21 03/19/21 gram/118 mL enema (Fleet Enema) chlorpheniramine maleate 2 mg/5 mL 4 mg PO Q4H PRN 03/20/21 03/20/21 oral liquid cholecalciferol (vitamin D3) 1,250 1,250 mcg PO QMONTH 03/20/21 03/20/21 mcg (50,000 unit) capsule cholecalciferol (vitamin D3) 1,250 1,250 mcg PO QMONTH 03/20/21 03/20/21 mcg (50,000 unit) capsule insulin aspart U-100 100 unit/mL See Protocol SUBCUT QIDACHS 03/20/21 03/20/21 subcutaneous cartridge (Novolog PenFill U-100 Insulin aspart) Previous Rx's Medication Instructions Recorded ertapenem 1 gram solution for 1 g IV DAILY #11 ea 03/22/21 injection (Invanz) insulin glargine 100 unit/mL 10 unit SUBCUT DAILY #1 ml 03/22/21 subcutaneous solution (Lantus U-100 Insulin) Allergies Allergy/AdvReac Type Severity Reaction Status Date / Time chlorpromazine Allergy Intermediate HIVES Verified 12/10/20 21:05 [CHLORPROMAZINE] Review of Systems Review of Systems: All other systems are reviewed and are negative Constitutional: Reports as per HPI and Reports no additional constitutional complaints Eyes: Reports as per HPI and Reports no additional eye complaints Reports system reviewed and no additional complaints, except as documented Cardiovascular: Reports as per HPI and Reports no additional cardiovascular complaints Respiratory: Reports as per HPI and Reports no additional respiratory complaints Gastrointestinal: Reports as per HPI and Reports no additional gastrointestinal complaints Genitourinary: Reports no additional female genitourinary complaints Musculoskeletal: Reports no additional musculoskeletal complaints Skin/Breast: Reports system reviewed and no additional complaints, except as docu Psychiatric: Reports no additional psychiatric complaints Endocrine: Reports no additional endocrine complaints Hematologic/Lymphatic: Reports no additional hematologic/lymphatic complaints Allergic/Immunologic: Reports no additional allergic/immunologic complaints Reports system reviewed and no additional complaints, except as documented and Reports Abnormal speech present [facility] Past Medical History Medical History Anxiety COVID-19 Cystitis Dementia Diabetes Diabetic retinopathy ESBL (extended spectrum beta-lactamase) producing bacteria infection Essential (primary) hypertension Hyperkalemia Hyperlipidemia Hypothermia Hypothyroid Leiomyoma of body of uterus Long QT syndrome Mood disorder Preglaucoma Presbyopia Seizure disorder Sepsis Subarachnoid hemorrhage following injury TBI (traumatic brain injury) Unspecified dementia with behavioral disturbance UTI (urinary tract infection) Social History Social History Household Members: Other Housing: [facility] Do you presently have visiting nurse or other home services: No (from [facility]) Alcohol intake: unknown Patient Tobacco Use Status: Never used Tobacco Use of substances other than those prescribed or required for medical reasons: Unknown Advance Directives: Yes Advance Directives on File: Yes Advance Directives Date on File: 03/20/21 Patient : No service: No Current occupational status: disabled Physical Exam Vital Signs: Vital Signs: Last Vital Signs Temp 97.6 F 03/28/21 22:00 Pulse 67 03/28/21 22:00 Resp 16 03/28/21 22:00 BP 151/83 H 03/28/21 22:00 Pulse Ox 99 03/28/21 22:00 Body Mass Index 33.9 Vital signs have been reviewed as appeared to be correct. Blood pressure normal. Heart rate normal. Respiration rate normal. Temperature normal. Oxygen saturation normal. Appearance: Alert. Oriented X3. No acute distress. Head: Normal external exam. Normocephalic. Atraumatic. No Austin signs noted. No raccoon eyes noted Eyes: PERRLA. EOMI. Conjunctiva and sclera normal. Eyelids normal. ENT: TM's Normal. Pharynx normal. Uvula midline. Moist mucous membranes. No trismus noted. No drooling noted. No muffled voice noted. Neck: Normal inspection. Neck supple. FROM. No adenopathy. Thyroid Normal. No meningeal signs. No neck mass noted. CVS: Normal heart rate and rhythm. Heart sound normal. No murmurs noted. Pulses normal throughout. Respiratory: No respiratory distress. Painless inspiration. Breath sounds normal. No wheezes/rales/rhonchi noted. Chest nontender. No accessory muscle usage noted or decreased air movement noted. Abdomen: Soft and nontender. Bowel sounds normal in all 4 quadrants. No distention noted. No organomegaly noted. No visible injury noted. Back: No CVA tenderness. Full range of motion noted. Skin: Skin warm and dry. Normal skin color. Normal skin turgor. No rashes/lesions/lacerations noted. Extremities: No lower extremity edema. Extremities exhibit normal range of motion. Extremities nontender. Neuro: Oriented X 3. Cranial nerve exam: II-XII are grossly intact No motor deficit. No sensory deficit. Reflexes normal. Course Course Course Narrative: Assessment and plan. 50-year-old female with TBI live at [facility], patient had a recent hospitalization for UTI, patient was returned to the emergency department for evaluation of confusion and generalized weakness, patient in the emergency department is awake, alert, oriented x3, 1 of our ERT very familiar with the patient take care of her at [facility] and very familiar with the baseline of the patient stated that the patient is not confused and acting at her baseline, patient at her normal baseline is awake and alert, able to answer all my questions appropriately, patient refuse blood workup and refuse Street catheterization only agreed to give urine sample for testing, patient otherwise has no complain at this point no chest pain, no abdominal pain, no nausea, no vomiting, no diarrhea, no chills, or fever. Medical Decision Making Lab Data Lab results reviewed: Yes I reviewed the patient's lab results. Labs: Lab Results 03/28/21 03/28/21 Range/Units 20:39 22:12 POC Glucose 179 H (60-115) mg/dL Urine Color STRAW Urine Appearance CLEAR Urine pH 6.5 (5.0-8.0) Ur Specific Orr <= 1.005 (1.005-1.025) Urine Protein NEG (NEG-TRACE) MG/DL Urine Glucose (UA) NEG (NEG) MG/DL Urine Ketones NEG (NEG) MG/DL Urine Blood TRACE (NEG) Urine Nitrite NEG (NEG) Ur Leukocyte Esterase TRACE H (NEG) Urine RBC 0-2 (0) /HPF Urine WBC 0-2 (0-4) /HPF Ur Squamous Epith Cells TRACE /LPF Urine Bacteria NONE /LPF Discharge Plan Discharge Clinical Impression: Generalized weakness Patient Disposition: Home, Self-Care Instructions: Cognitive Disorders after Traumatic Brain Injury (ED) Additional Instructions: Follow-up with your primary doctor in 2 days. Prescriptions: No Action acetaminophen 325 mg Tablet 650 mg PO Q6H PRN (Reason: Fever Or Pain) RF: 0 atorvastatin 10 mg Tablet 10 mg PO BEDTIME RF: 0 benztropine 1 mg Tablet 1 mg PO BID RF: 0 gabapentin 600 mg Tablet 600 mg PO TID RF: 0 haloperidol 5 mg Tablet 5 mg PO BID RF: 0 levothyroxine 25 mcg Tablet 25 mcg PO SUMOTUTHFRSA@0630 RF: 0 ferrous sulfate 325 mg (65 mg iron) Tablet 325 mg PO DAILY RF: 0 metformin 1,000 mg Tablet 1,000 mg PO BID RF: 0 levothyroxine 150 mcg Tablet 150 mcg PO SUMOTUTHFRSA@0630 RF: 0 haloperidol 10 mg Tablet 10 mg PO BID RF: 0 Fleet Enema 19-7 gram/118 mL Enema 118 ml RI DAILY PRN (Reason: Constipation) RF: 0 docusate sodium 100 mg Capsule 100 mg PO BID RF: 0 glucagon 1 mg Recon Soln 1 mg IM DAILY PRN (Reason: Hypoglycemia) RF: 0 ibuprofen 600 mg Tablet 600 mg PO Q8H PRN (Reason: Pain) RF: 0 levetiracetam 1,000 mg Tablet 1,000 mg PO BID RF: 0 Lantus Solostar U-100 Insulin 100 unit/mL (3 mL) Insulin Pen 15 unit SUBCUT BEDTIME RF: 0 Hold Instructions: Resume on 03/29/21. oxcarbazepine 150 mg Tablet 150 mg PO BID RF: 0 sennosides [senna] 8.6 mg Tablet 8.6 mg PO Q24H PRN (Reason: Constipation) RF: 0 phenytoin sodium extended 200 mg Capsule 200 mg PO BID RF: 0 quetiapine 50 mg Tablet 50 mg PO BID RF: 0 insulin aspart U-100 [Novolog PenFill U-100 Insulin] 100 unit/mL Cartridge See Protocol sliding scale dose SUBCUT QIDACHS RF: 0 cholecalciferol (vitamin D3) 1,250 mcg (50,000 unit) Capsule 1,250 mcg PO QMONTH RF: 0 cholecalciferol (vitamin D3) 1,250 mcg (50,000 unit) Capsule 1,250 mcg PO QMONTH RF: 0 chlorpheniramine maleate 2 mg/5 mL Liquid 4 mg PO Q4H PRN (Reason: Cough) RF: 0 Lantus U-100 Insulin 100 unit/mL Solution 10 unit subcut DAILY Qty: 1 RF: 0 ertapenem [Invanz] 1 gram recon soln 1 g IV DAILY Qty: 11 RF: 0 Referrals: Physician,Unknown [Primary Care Provider] - 2 days Interventions: ED Discharge Assessment Last Done: 03/29/21 01:28 Discharge Date/Time: 03/29/21 01:30
--- NOTE | 2021-03-28 21:15 | PC.NURSE ---
PATIENT WAS AMBULATE BY THIS PCT TO BATHROOM .
[2021-03-28 22:00] VITALS: BP 151/83; PULSE 67; RESP 16; TEMP 36.4; O2SAT 99
[2021-03-28 22:18] LABS: Glucose Urine UA NEG (NEG); Leukocyte Esterase Urine TRACE (NEG); Nitrite Urine NEG (NEG); PH 6.5 (5.0-8.0); Specific Gravity - Urine <= 1.005 (1.005-1.025); UACC Culture Trigger YES; Urine Blood TRACE (NEG); Urine Ketones NEG (NEG); Urine Protein NEG (NEG-TRACE)
[2021-03-28 22:20] LABS: Appearance Urine CLEAR; Color Urine STRAW
[2021-03-28 22:27] LABS: RBC Urine 0-2 /HPF (0); Squamous Epithelial Cell Urine TRACE /LPF; WBC Urine 0-2 /HPF (0-4)
--- NOTE | 2021-03-28 23:48 | PC.NURSE ---
Pt ambulating to the bathroom with an unsteady gait, requiring a one assist. Per MD, plan for discharge. Per pt, she goes back to [facility] via ambulance. Awaiting discharge instructions.
--- NOTE | 2021-03-29 01:23 | PC.NURSE ---
EMS at bedside for transport.
--- NOTE | 2021-03-29 01:30 | PC.NURSE ---
This RN attempted to call [facility] but unable to reach anyone to speak to in pts unit.
== END 2021-03-29 01:30 | disposition home or self-care (01) ==
PROVIDERS: Emergency Provider Emergency Medicine
DX: R53.1 Weakness (principal); E11.9 Type 2 diabetes mellitus without complications; I10 Essential (primary) hypertension; F03.90 Unspecified dementia, unspecified severity, without behavioral disturbance, psychotic disturbance, mood disturbance, and anxiety; Z79.4 Long term (current) use of insulin; Z79.899 Other long term (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; Z87.820 Personal history of traumatic brain injury
CPT/HCPCS: 81001; 82947; 87086; 99283; 99284

== ENCOUNTER 2021-03-31 12:18 | Emergency (ER) | payer MEDICAID, SELFPAY ==
--- NOTE | ~2021-03-31 | CT_ITS ---
EXAMINATION: CT BRAIN AND CT FACIAL BONES WITHOUT CONTRAST. CLINICAL INFORMATION: Fall, hit head. COMPARISON: None TECHNIQUE: 5 mm thin axial and reformatted 2 mm thin sagittal and coronal images of brain were obtained. Subsequently axial 1.5 mm thin and reformatted 1.5 mm thin sagittal and coronal images of facial bones were obtained without contrast. DLP 1915. FINDINGS: Brain: There is no acute intra-axial, extra-axial bleed, masses, collection or midline shift. There is no acute infarction in evolution. There is no edema. The lateral ventricles are symmetrical in size and configuration without enlargement. The vasquez to white matter differentiation is maintained normal. Bone windows reveal benign hyperostosis frontalis interna. No calvarial fracture seen. There is no scalp soft tissue abnormality. Facial bones: There is normal aeration of paranasal sinuses without mucosal thickening or air-fluid levels. The drainage pathways are widely patent. The bony sinus horvath are intact. There is vadim bullosa of bilateral middle turbinates. The nasal cavity and nasopharyngeal airway is widely patent. There is no periapical cysts are bony abnormality involving the mandible. Bilateral optic globes, optic nerve and bony orbits are normal and symmetrical. The maxillofacial soft tissues are normal. CT/CT head/brain wo con IMPRESSION: No acute intracranial process seen. No visible calvarial fracture or scalp hematoma. No maxillofacial, nasal or mandibular fracture seen. The soft tissues are normal.
--- NOTE | ~2021-03-31 | XR_ITS ---
EXAMINATION: XR CHEST CLINICAL INFORMATION: Fall, weakness. COMPARISON: Chest 01/24/2021 TECHNIQUE: 2 views of the chest were obtained. FINDINGS: The lungs are well-expanded and clear. The heart size and pulmonary vascularity is normal. No gross bony abnormality seen. XR/XR chest 2V IMPRESSION: Unremarkable chest exam. No change from 01/24/2021.
--- NOTE | ~2021-03-31 | CT_ITS ---
EXAMINATION: CT BRAIN AND CT FACIAL BONES WITHOUT CONTRAST. CLINICAL INFORMATION: Fall, hit head. COMPARISON: None TECHNIQUE: 5 mm thin axial and reformatted 2 mm thin sagittal and coronal images of brain were obtained. Subsequently axial 1.5 mm thin and reformatted 1.5 mm thin sagittal and coronal images of facial bones were obtained without contrast. DLP 1915. FINDINGS: Brain: There is no acute intra-axial, extra-axial bleed, masses, collection or midline shift. There is no acute infarction in evolution. There is no edema. The lateral ventricles are symmetrical in size and configuration without enlargement. The vasquez to white matter differentiation is maintained normal. Bone windows reveal benign hyperostosis frontalis interna. No calvarial fracture seen. There is no scalp soft tissue abnormality. Facial bones: There is normal aeration of paranasal sinuses without mucosal thickening or air-fluid levels. The drainage pathways are widely patent. The bony sinus horvath are intact. There is vadim bullosa of bilateral middle turbinates. The nasal cavity and nasopharyngeal airway is widely patent. There is no periapical cysts are bony abnormality involving the mandible. Bilateral optic globes, optic nerve and bony orbits are normal and symmetrical. The maxillofacial soft tissues are normal. CT/CT facial bones wo con IMPRESSION: No acute intracranial process seen. No visible calvarial fracture or scalp hematoma. No maxillofacial, nasal or mandibular fracture seen. The soft tissues are normal.
--- NOTE | ~2021-03-31 | CT_ITS ---
EXAMINATION: CT CERVICAL SPINE WITHOUT CONTRAST CLINICAL INFORMATION: Fall, hit head. COMPARISON: CT cervical spine without contrast 01/24/2021. TECHNIQUE: 3 mm thin axial and reformatted 2 mm thin sagittal and coronal images of cervical spine were obtained. This CT examination was performed using dose optimization techniques as appropriate, variously including the following: *Automated exposure control *Adjustment of mA and/or kV according to patient size (this includes techniques or standardized protocols for targeted exams where dose is matched to indication/reason for exam; i.e. extremities or head) *Use of iterative reconstruction technique DLP: 1915 mGy-cm FINDINGS: There is mild straightening of cervical lordosis. The vertebral heights, alignment and disc heights are normal. The craniovertebral junction and C1-C2 alignment is normal. There is no visible acute fracture, dislocation or subluxation. The neural foramina are patent bilaterally. The prevertebral and paravertebral soft tissues are normal. The thyroid lobes, the submandibular and visualized parotid glands are symmetrical and normal. The lung apices are well-expanded and clear. CT/CT cervical spine wo con IMPRESSION: Mild straightening of cervical lordosis likely spasm. No visible acute fracture, dislocation or subluxation seen.
--- NOTE | 2021-03-31 12:27 | ECG_ITS ---
Test Reason : FALL Blood Pressure : / mmHG Vent. Rate : 066 BPM Atrial Rate : 066 BPM P-R Int : 202 ms QRS Dur : 090 ms QT Int : 450 ms P-R-T Axes : 073 027 044 degrees QTc Int : 471 ms Normal sinus rhythm Possible Left atrial enlargement Nonspecific T wave abnormality Abnormal ECG When compared with ECG of 19-MAR-2021 20:13, Nonspecific T wave abnormality, worse in Inferior leads Nonspecific T wave abnormality now evident in Anterolateral leads Referred By: Hope Santiago Electronically Signed By:TEE JACOB
[2021-03-31 12:33] VITALS: PULSE 70; RESP 15; TEMP 36.8; O2SAT 100; BMI 37.1
--- NOTE | 2021-03-31 12:38 | ED_ITS ---
HPI - Fall General Chief Complaint: Fall Stated Complaint: fall, ams, hypoglycemia Time Seen by Provider: 03/31/21 12:23 Source: EMS Mode of arrival: EMS Limitations: no limitations and altered mental status History of Present Illness HPI Narrative: 50-year-old female coming from [facility] with a past medical history of TBI, dementia, seizure disorder on multiple antiepileptics, mood disorder, anxiety, diabetes, hypertension, hyperlipidemia, hypothyroidism, currently on Augmentin for a ESBL UTI here after an unwitnessed fall. Patient was found down by staff at [facility]. She was noted to be hypoglycemic with a b lood sugar at 55 by EMS. She received 1 dose of glucagon with a repeat blood sugar 65. Unclear if patient had seizure. Due to baseline mental status unable to obtain history of present illness, revi ew of systems on patient. Related Data Home Medications Medication Instructions Recorded Confirmed acetaminophen 325 mg tablet 650 mg PO Q6H PRN 03/19/21 03/19/21 atorvastatin 10 mg tablet 10 mg PO BEDTIME 03/19/21 03/19/21 benztropine 1 mg tablet 1 mg PO BID 03/19/21 03/19/21 docusate sodium 100 mg capsule 100 mg PO BID 03/19/21 03/19/21 ferrous sulfate 325 mg (65 mg 325 mg PO DAILY 03/19/21 03/19/21 iron) tablet gabapentin 600 mg tablet 600 mg PO TID 03/19/21 03/19/21 glucagon 1 mg solution for 1 mg IM DAILY PRN 03/19/21 03/20/21 injection haloperidol 10 mg tablet 10 mg PO BID 03/19/21 03/19/21 haloperidol 5 mg tablet 5 mg PO BID 03/19/21 03/19/21 ibuprofen 600 mg tablet 600 mg PO Q8H PRN 03/19/21 03/19/21 insulin glargine 100 unit/mL (3 15 unit SUBCUT BEDTIME 03/19/21 03/19/21 mL) subcutaneous pen (Lantus Solostar U-100 Insulin) levetiracetam 1,000 mg tablet 1,000 mg PO BID 03/19/21 03/19/21 levothyroxine 150 mcg tablet 150 mcg PO SUMOTUTHFRSA@0630 03/19/21 03/20/21 levothyroxine 25 mcg tablet 25 mcg PO SUMOTUTHFRSA@0630 03/19/21 03/20/21 metformin 1,000 mg tablet 1,000 mg PO BID 03/19/21 03/19/21 oxcarbazepine 150 mg tablet 150 mg PO BID 03/19/21 03/19/21 phenytoin sodium extended 200 mg 200 mg PO BID 03/19/21 03/19/21 capsule quetiapine 50 mg tablet 50 mg PO BID 03/19/21 03/19/21 sennosides 8.6 mg tablet (senna) 8.6 mg PO Q24H PRN 03/19/21 03/20/21 sodium phosphates 19 gram-7 118 ml [place] DAILY PRN 03/19/21 03/19/21 gram/118 mL enema (Fleet Enema) chlorpheniramine maleate 2 mg/5 mL 4 mg PO Q4H PRN 03/20/21 03/20/21 oral liquid cholecalciferol (vitamin D3) 1,250 1,250 mcg PO QMONTH 03/20/21 03/20/21 mcg (50,000 unit) capsule cholecalciferol (vitamin D3) 1,250 1,250 mcg PO QMONTH 03/20/21 03/20/21 mcg (50,000 unit) capsule insulin aspart U-100 100 unit/mL See Protocol SUBCUT QIDACHS 03/20/21 03/20/21 subcutaneous cartridge (Novolog PenFill U-100 Insulin aspart) Previous Rx's Medication Instructions Recorded ertapenem 1 gram solution for 1 g IV DAILY #11 ea 03/22/21 injection (Invanz) insulin glargine 100 unit/mL 10 unit SUBCUT DAILY #1 ml 03/22/21 subcutaneous solution (Lantus U-100 Insulin) Allergies Allergy/AdvReac Type Severity Reaction Status Date / Time chlorpromazine Allergy Intermediate HIVES Verified 12/10/20 21:05 [CHLORPROMAZINE] Review of Systems Review of Systems: Yes Unobtainable due to mental status Neurologic: Reports confusion Psychiatric: Psychiatric: Reports confusion PMFSH Past Medical History Attestation statement: The following information was validated with the patient. Source: old records reviewed and nursing notes reviewed Medical History Anxiety COVID-19 Cystitis Dementia Diabetes Diabetic retinopathy ESBL (extended spectrum beta-lactamase) producing bacteria infection Essential (primary) hypertension Hyperkalemia Hyperlipidemia Hypothermia Hypothyroid Leiomyoma of body of uterus Long QT syndrome Mood disorder Preglaucoma Presbyopia Seizure disorder Sepsis Subarachnoid hemorrhage following injury TBI (traumatic brain injury) Unspecified dementia with behavioral disturbance UTI (urinary tract infection) Social History Social History Household Members: Other Housing: Senior Living Do you presently have visiting nurse or other home services: No (from [facility]) Alcohol intake: never Patient Tobacco Use Status: Never used Tobacco Use of substances other than those prescribed or required for medical reasons: No Advance Directives: Yes Advance Directives on File: Yes Advance Directives Date on File: 03/20/21 Patient : No service: No Current occupational status: disabled Physical Exam Vital Signs: Vital Signs: Last Vital Signs Temp 98.2 F 03/31/21 12:33 Pulse 58 03/31/21 16:09 Resp 12 03/31/21 16:09 BP 125/67 03/31/21 16:09 Pulse Ox 99 03/31/21 16:09 Body Mass Index 37.1 Const: Other: lethargic General: confusion Orientation/consciousness: confusion Limitations: altered mental status HENMT: Head: Yes normal to inspection Ears: hearing grossly normal bilaterally General nose exam: Normal external nose present Face and sinus: Yes normal facial exam Mouth: Normal oral and palatal mucosa present Mouth/tongue images: 1. laceration 2cm Throat: Yes posterior oropharynx normal Eyes: General: appearance normal, both eyes and all related structures Pupils: Equal, round and reactive pupils present Neck: Other: C-collar in place Neck: Yes normal visual inspection Chest: Chest palpation & inspection: normal inspection of the chest Resp: Effort & Inspection: normal respiratory effort Auscultation: clear to auscultation bilaterally Cardio: Rate: regular rate Rhythm: regular rhythm Peripheral pulses: Peripheral pulses 2+ throughout GI: Inspection: Yes normal to inspection Palpation (GI): Soft to palpation and nontender Auscultation: normal bowel sounds Back/Spine/Pelvis: Thoracic/Lumbar Spine: thoracic and lumbar spine normal to inspection Skin: General skin exam: no rashes or lesions noted Neuro: General: moves all extremities, confusion and Unable to assess gait Cranial nerves: Yes Equal, round and reactive pupils present Gait exam (Neuro): Unable to assess gait Sensory Exam: Normal double simultaneous stimulation for sensation Extrem: General: Yes normal to inspection Course Course Course Narrative: 50-year-old female coming from a retirement with an unwitnessed fall. Patient has an extensive medical history including a TBI with dementia and seizure disorder on multiple anti epileptics. She does on report of previous ER visits have breakthrough seizures. Noted to be hypoglycemic by EMS and received glucagon with improvement of blood sugar. On arrival patient arouses to verbal, moaning, abrasions noted to the tongue. ?seizure for cause of fall. Will need labs, UA, CT head/neck/face, EKG. Nursing to put patient on seizure precaution. Will check drug levels. -BS on arrival 111 1400-labs show mildly elevated lactic acid. Not from infection. From seizure activity. Mildly elevated troponin. Plan for repeat 3 hour troponin. No chest pain, nonspecific ST changes on EKG not consistent with ACS. Imaging is pending. 1700-nursing at bedside to repeat troponin, lactic acid level, 2nd set of blood cultures. At this time patient is now alert. She is quite combative with staff when they attempt to do any interventions. Refusing all interventions at this time. She appears to be back at her baseline. Her imaging is all unremarkable. Drug levels pending as analyzer here is down and they are send out levels. Likely based on clinical exam patient had a seizure. She is is on multiple AED's. Spoke to patient's doctor (Dr Roth). Agreeable with return to [facility]. Dr Roth aware of high dilantin level. MDM - Fall MDM Narrative Medical decision making narrative: Seizure, syncope, underlying infection Medical Records Attestation: I reviewed the patient's medical records. Lab Data Attestation: I reviewed the patient's lab results. Result diagrams: 03/31/21 12:53 03/31/21 12:53 Labs: Lab Results 03/31/21 03/31/21 03/31/21 Range/Units 12:51 12:52 12:53 WBC 4.1 L (4.8-10.8) X10*3/uL RBC 3.40 L (4.20-5.50) X10*6/uL Hgb 9.5 L (12.0-16.0) g/dl Hct 30.1 L (37-47) % MCV 88.5 (80-98) fL MCH 27.9 (27.0-33.0) pg MCHC 31.6 (31.0-35.0) g/dl RDW 14.8 (11.0-16.0) % Plt Count 193 (160-400) X10*3/uL MPV 10.8 (9.4-12.3) fL Immature Gran % (Auto) 0.2 (0.0-0.4) % Neut % (Auto) 51.1 (45-73) % Lymph % (Auto) 36.8 (20-40) % [place] % (Auto) 11.2 H (2-11) % Eos % (Auto) 0.5 (0-4) % Baso % (Auto) 0.2 (0-2) % Lymph # (Auto) 1.5 (1.2-4.9) X10*3/uL [place] # (Auto) 0.5 (0.1-1.2) X10*3/uL Eos # (Auto) 0.0 (0.0-0.4) X10*3/uL Baso # (Auto) 0.0 (0.0-0.2) X10*3/uL Abs Immat Gran (auto) 0.01 (0.00-0.03) X10*3/uL Absolute Neuts (auto) 2.1 (2.0-8.3) X10*3/uL Absolute Nucleated RBC 0.000 (0.0-0.012) X10*3/uL Nucleated RBC % (auto) 0.0 (0.0-0.2) /100WBC PT (9.9-13.0) SEC INR (0.9-1.1) Sodium (135-145) mmol/L Potassium (3.3-5.1) mmol/L Chloride (96-108) mmol/L Carbon Dioxide (22-29) mmol/L Anion Gap (12-20) BUN (9-16) mg/dL Creatinine (0.5-1.4) mg/dL Estim Creat Clear Calc Estimated GFR POC Glucose 116 H (60-115) mg/dL Random Glucose (60-115) mg/dL Lactic Acid (0.5-2.0) mmol/L Calcium (8.4-10.2) mg/dL Magnesium (1.6-2.6) mg/dL Total Bilirubin (0.0-1.0) mg/dL Direct Bilirubin (0.0-0.5) mg/dL AST (5-31) U/L ALT (0-31) U/L Alkaline Phosphatase (39-117) U/L Total Creatine Kinase 88 (26-140) U/L Troponin I High Sens (<3.5-17.0) ng/L Total Protein (6.5-8.0) g/dL Albumin (3.5-5.0) g/dL Urine Color Urine Appearance Urine pH (5.0-8.0) Ur Specific [place] (1.005-1.025) Urine Protein (NEG-TRACE) MG/DL Urine Glucose (UA) (NEG) MG/DL Urine Ketones (NEG) MG/DL Urine Blood (NEG) Urine Nitrite (NEG) Ur Leukocyte Esterase (NEG) Urine RBC (0) /HPF Urine WBC (0-4) /HPF Ur Squamous Epith Cells /LPF Urine Bacteria /LPF 03/31/21 03/31/21 03/31/21 Range/Units 12:53 12:53 12:53 WBC (4.8-10.8) X10*3/uL RBC (4.20-5.50) X10*6/uL Hgb (12.0-16.0) g/dl Hct (37-47) % MCV (80-98) fL MCH (27.0-33.0) pg MCHC (31.0-35.0) g/dl RDW (11.0-16.0) % Plt Count (160-400) X10*3/uL MPV (9.4-12.3) fL Immature Gran % (Auto) (0.0-0.4) % Neut % (Auto) (45-73) % Lymph % (Auto) (20-40) % [place] % (Auto) (2-11) % Eos % (Auto) (0-4) % Baso % (Auto) (0-2) % Lymph # (Auto) (1.2-4.9) X10*3/uL [place] # (Auto) (0.1-1.2) X10*3/uL Eos # (Auto) (0.0-0.4) X10*3/uL Baso # (Auto) (0.0-0.2) X10*3/uL Abs Immat Gran (auto) (0.00-0.03) X10*3/uL Absolute Neuts (auto) (2.0-8.3) X10*3/uL Absolute Nucleated RBC (0.0-0.012) X10*3/uL Nucleated RBC % (auto) (0.0-0.2) /100WBC PT 11.5 (9.9-13.0) SEC INR 1.0 (0.9-1.1) Sodium 142 (135-145) mmol/L Potassium 4.2 (3.3-5.1) mmol/L Chloride 104 (96-108) mmol/L Carbon Dioxide 30 H (22-29) mmol/L Anion Gap 12 (12-20) BUN 27 H (9-16) mg/dL Creatinine 1.10 (0.5-1.4) mg/dL Estim Creat Clear Calc 79.0 Estimated GFR 52 POC Glucose (60-115) mg/dL Random Glucose 94 (60-115) mg/dL Lactic Acid (0.5-2.0) mmol/L Calcium 10.0 (8.4-10.2) mg/dL Magnesium 1.9 (1.6-2.6) mg/dL Total Bilirubin < 0.2 (0.0-1.0) mg/dL Direct Bilirubin < 0.2 (0.0-0.5) mg/dL AST 19 D (5-31) U/L ALT 25 (0-31) U/L Alkaline Phosphatase 219 H (39-117) U/L Total Creatine Kinase (26-140) U/L Troponin I High Sens 17.3 H* (<3.5-17.0) ng/L Total Protein 8.3 H (6.5-8.0) g/dL Albumin 4.2 (3.5-5.0) g/dL Urine Color Urine Appearance Urine pH (5.0-8.0) Ur Specific [place] (1.005-1.025) Urine Protein (NEG-TRACE) MG/DL Urine Glucose (UA) (NEG) MG/DL Urine Ketones (NEG) MG/DL Urine Blood (NEG) Urine Nitrite (NEG) Ur Leukocyte Esterase (NEG) Urine RBC (0) /HPF Urine WBC (0-4) /HPF Ur Squamous Epith Cells /LPF Urine Bacteria /LPF 03/31/21 03/31/21 03/31/21 Range/Units 12:53 14:47 15:53 WBC (4.8-10.8) X10*3/uL RBC (4.20-5.50) X10*6/uL Hgb (12.0-16.0) g/dl Hct (37-47) % MCV (80-98) fL MCH (27.0-33.0) pg MCHC (31.0-35.0) g/dl RDW (11.0-16.0) % Plt Count (160-400) X10*3/uL MPV (9.4-12.3) fL Immature Gran % (Auto) (0.0-0.4) % Neut % (Auto) (45-73) % Lymph % (Auto) (20-40) % [place] % (Auto) (2-11) % Eos % (Auto) (0-4) % Baso % (Auto) (0-2) % Lymph # (Auto) (1.2-4.9) X10*3/uL [place] # (Auto) (0.1-1.2) X10*3/uL Eos # (Auto) (0.0-0.4) X10*3/uL Baso # (Auto) (0.0-0.2) X10*3/uL Abs Immat Gran (auto) (0.00-0.03) X10*3/uL Absolute Neuts (auto) (2.0-8.3) X10*3/uL Absolute Nucleated RBC (0.0-0.012) X10*3/uL Nucleated RBC % (auto) (0.0-0.2) /100WBC PT (9.9-13.0) SEC INR (0.9-1.1) Sodium (135-145) mmol/L Potassium (3.3-5.1) mmol/L Chloride (96-108) mmol/L Carbon Dioxide (22-29) mmol/L Anion Gap (12-20) BUN (9-16) mg/dL Creatinine (0.5-1.4) mg/dL Estim Creat Clear Calc Estimated GFR POC Glucose 132 H (60-115) mg/dL Random Glucose (60-115) mg/dL Lactic Acid 2.1 H* (0.5-2.0) mmol/L Calcium (8.4-10.2) mg/dL Magnesium (1.6-2.6) mg/dL Total Bilirubin (0.0-1.0) mg/dL Direct Bilirubin (0.0-0.5) mg/dL AST (5-31) U/L ALT (0-31) U/L Alkaline Phosphatase (39-117) U/L Total Creatine Kinase (26-140) U/L Troponin I High Sens (<3.5-17.0) ng/L Total Protein (6.5-8.0) g/dL Albumin (3.5-5.0) g/dL Urine Color YELLOW Urine Appearance CLEAR Urine pH 6.0 (5.0-8.0) Ur Specific [place] 1.015 (1.005-1.025) Urine Protein TRACE (NEG-TRACE) MG/DL Urine Glucose (UA) NEG (NEG) MG/DL Urine Ketones NEG (NEG) MG/DL Urine Blood TRACE (NEG) Urine Nitrite NEG (NEG) Ur Leukocyte Esterase NEG (NEG) Urine RBC 0-2 (0) /HPF Urine WBC 0 (0-4) /HPF Ur Squamous Epith Cells TRACE /LPF Urine Bacteria TRACE /LPF 03/31/21 Range/Units 15:56 WBC (4.8-10.8) X10*3/uL RBC (4.20-5.50) X10*6/uL Hgb (12.0-16.0) g/dl Hct (37-47) % MCV (80-98) fL MCH (27.0-33.0) pg MCHC (31.0-35.0) g/dl RDW (11.0-16.0) % Plt Count (160-400) X10*3/uL MPV (9.4-12.3) fL Immature Gran % (Auto) (0.0-0.4) % Neut % (Auto) (45-73) % Lymph % (Auto) (20-40) % [place] % (Auto) (2-11) % Eos % (Auto) (0-4) % Baso % (Auto) (0-2) % Lymph # (Auto) (1.2-4.9) X10*3/uL [place] # (Auto) (0.1-1.2) X10*3/uL Eos # (Auto) (0.0-0.4) X10*3/uL Baso # (Auto) (0.0-0.2) X10*3/uL Abs Immat Gran (auto) (0.00-0.03) X10*3/uL Absolute Neuts (auto) (2.0-8.3) X10*3/uL Absolute Nucleated RBC (0.0-0.012) X10*3/uL Nucleated RBC % (auto) (0.0-0.2) /100WBC PT (9.9-13.0) SEC INR (0.9-1.1) Sodium (135-145) mmol/L Potassium (3.3-5.1) mmol/L Chloride (96-108) mmol/L Carbon Dioxide (22-29) mmol/L Anion Gap (12-20) BUN (9-16) mg/dL Creatinine (0.5-1.4) mg/dL Estim Creat Clear Calc Estimated GFR POC Glucose 99 (60-115) mg/dL Random Glucose (60-115) mg/dL Lactic Acid (0.5-2.0) mmol/L Calcium (8.4-10.2) mg/dL Magnesium (1.6-2.6) mg/dL Total Bilirubin (0.0-1.0) mg/dL Direct Bilirubin (0.0-0.5) mg/dL AST (5-31) U/L ALT (0-31) U/L Alkaline Phosphatase (39-117) U/L Total Creatine Kinase (26-140) U/L Troponin I High Sens (<3.5-17.0) ng/L Total Protein (6.5-8.0) g/dL Albumin (3.5-5.0) g/dL Urine Color Urine Appearance Urine pH (5.0-8.0) Ur Specific [place] (1.005-1.025) Urine Protein (NEG-TRACE) MG/DL Urine Glucose (UA) (NEG) MG/DL Urine Ketones (NEG) MG/DL Urine Blood (NEG) Urine Nitrite (NEG) Ur Leukocyte Esterase (NEG) Urine RBC (0) /HPF Urine WBC (0-4) /HPF Ur Squamous Epith Cells /LPF Urine Bacteria /LPF Imaging Data Ct cervical spine: Attestation: I personally reviewed and interpreted this imaging study as follows: Radiologist's impression: FINDINGS: There is mild straightening of cervical lordosis. The vertebral heights, alignment and disc heights are normal. The craniovertebral junction and C1-C2 alignment is normal. There is no visible acute fracture, dislocation or subluxation. The neural foramina are patent bilaterally. The prevertebral and paravertebral soft tissues are normal. The thyroid lobes, the submandibular and visualized parotid glands are symmetrical and normal. The lung apices are well-expanded and clear. CT/CT cervical spine wo con IMPRESSION: Mild straightening of cervical lordosis likely spasm. No visible acute fracture, dislocation or subluxation seen.? ? Ct head/facial bones: Attestation: I personally reviewed and interpreted this imaging study as follows: Radiologist's impression: FINDINGS: Brain: There is no acute intra-axial, extra-axial bleed, masses, collection or midline shift. There is no acute infarction in evolution. There is no edema. The lateral ventricles are symmetrical in size and configuration without enlargement. The vasquez to white matter differentiation is maintained normal. Bone windows reveal benign hyperostosis frontalis interna. No calvarial fracture seen. There is no scalp soft tissue abnormality. Facial bones: There is normal aeration of paranasal sinuses without mucosal thickening or air-fluid levels. The drainage pathways are widely patent. The bony sinus horvath are intact. There is vadim bullosa of bilateral middle turbinates. The nasal cavity and nasopharyngeal airway is widely patent. There is no periapical cysts are bony abnormality involving the mandible. Bilateral optic globes, optic nerve and bony orbits are normal and symmetrical. The maxillofacial soft tissues are normal. CT/CT facial bones wo con IMPRESSION: No acute intracranial process seen. ? No visible calvarial fracture or scalp hematoma. ? No maxillofacial, nasal or mandibular fracture seen. The soft tissues are normal. Chest x-ray: Attestation: I personally reviewed and interpreted this imaging study as follows: Radiologist's impression: EXAMINATION: XR CHEST CLINICAL INFORMATION: Fall, weakness. COMPARISON: Chest 01/24/2021 TECHNIQUE: 2 views of the chest were obtained. FINDINGS: The lungs are well-expanded and clear. The heart size and pulmonary vascularity is normal. No gross bony abnormality seen. XR/XR chest 2V IMPRESSION: Unremarkable chest exam. No change from 01/24/2021. ECG Data Attestation: I personally reviewed and interpreted this ECG as follows: ECG interpretation date: 03/31/21 ECG interpretation time: 14:06 Interpretation: Normal sinus rhythm with a rate of 66, normal [place], normal QRS, QTC 471. Nonspecific ST changes. Discharge Plan Discharge Clinical Impression: Seizure Patient Disposition: er [facility] Instructions: Epilepsy (ED) Additional Instructions: dilantin level 49.8. Discuss with dr roth need to hold dose Prescriptions: No Action acetaminophen 325 mg Tablet 650 mg PO Q6H PRN (Reason: Fever Or Pain) RF: 0 atorvastatin 10 mg Tablet 10 mg PO BEDTIME RF: 0 benztropine 1 mg Tablet 1 mg PO BID RF: 0 gabapentin 600 mg Tablet 600 mg PO TID RF: 0 haloperidol 5 mg Tablet 5 mg PO BID RF: 0 levothyroxine 25 mcg Tablet 25 mcg PO SUMOTUTHFRSA@0630 RF: 0 ferrous sulfate 325 mg (65 mg iron) Tablet 325 mg PO DAILY RF: 0 metformin 1,000 mg Tablet 1,000 mg PO BID RF: 0 levothyroxine 150 mcg Tablet 150 mcg PO SUMOTUTHFRSA@0630 RF: 0 haloperidol 10 mg Tablet 10 mg PO BID RF: 0 Fleet Enema 19-7 gram/118 mL Enema 118 ml [place] DAILY PRN (Reason: Constipation) RF: 0 docusate sodium 100 mg Capsule 100 mg PO BID RF: 0 glucagon 1 mg Recon Soln 1 mg IM DAILY PRN (Reason: Hypoglycemia) RF: 0 ibuprofen 600 mg Tablet 600 mg PO Q8H PRN (Reason: Pain) RF: 0 levetiracetam 1,000 mg Tablet 1,000 mg PO BID RF: 0 Lantus Solostar U-100 Insulin 100 unit/mL (3 mL) Insulin Pen 15 unit SUBCUT BEDTIME RF: 0 Hold Instructions: Resume on 03/29/21. oxcarbazepine 150 mg Tablet 150 mg PO BID RF: 0 sennosides [senna] 8.6 mg Tablet 8.6 mg PO Q24H PRN (Reason: Constipation) RF: 0 phenytoin sodium extended 200 mg Capsule 200 mg PO BID RF: 0 quetiapine 50 mg Tablet 50 mg PO BID RF: 0 insulin aspart U-100 [Novolog PenFill U-100 Insulin] 100 unit/mL Cartridge See Protocol sliding scale dose SUBCUT QIDACHS RF: 0 cholecalciferol (vitamin D3) 1,250 mcg (50,000 unit) Capsule 1,250 mcg PO QMONTH RF: 0 cholecalciferol (vitamin D3) 1,250 mcg (50,000 unit) Capsule 1,250 mcg PO QMONTH RF: 0 chlorpheniramine maleate 2 mg/5 mL Liquid 4 mg PO Q4H PRN (Reason: Cough) RF: 0 Lantus U-100 Insulin 100 unit/mL Solution 10 unit subcut DAILY Qty: 1 RF: 0 ertapenem [Invanz] 1 gram recon soln 1 g IV DAILY Qty: 11 RF: 0 Interventions: ED Discharge Assessment Last Done: 03/31/21 20:26 Discharge Date/Time: 03/31/21 20:26
[2021-03-31 12:56] LABS: Glucose, Whole Blood 116 mg/dL (60-115)
[2021-03-31 12:59] LABS: MANUAL DIFF FLAG NO
[2021-03-31 13:01] LABS: Basophils Percent Auto 0.2 % (0-2); Eosinophils Percent Auto 0.5 % (0-4); Hematocrit 30.1 % (37-47); Hemoglobin 9.5 g/dl (12.0-16.0); Imm Gran Abs Auto 0.01 X10*3/uL (0.00-0.03); Imm Gran Pct Auto 0.2 % (0.0-0.4); Lymphocytes Absolute Auto 1.5 X10*3/uL (1.2-4.9); Lymphocytes Percent Auto 36.8 % (20-40); Mean Corpuscular HGB Conc 31.6 g/dl (31.0-35.0); Mean Corpuscular Hemoglobin 27.9 pg (27.0-33.0); Mean Corpuscular Volume 88.5 fL (80-98); Mean Platelet Volume 10.8 fL (9.4-12.3); Monocytes Absolute Auto 0.5 X10*3/uL (0.1-1.2); Monocytes Percent Auto 11.2 % (2-11); Neutrophils Absolute Auto 2.1 X10*3/uL (2.0-8.3); Neutrophils Percent Auto 51.1 % (45-73); Platelet Count 193 X10*3/uL (160-400); Red Cell Distribution Width 14.8 % (11.0-16.0); White Blood Count 4.1 X10*3/uL (4.8-10.8)
[2021-03-31 13:06] LABS: Prothrombin Time 11.5 SEC (9.9-13.0)
[2021-03-31 13:24] LABS: Lactic Acid 2.1 mmol/L (0.5-2.0)
[2021-03-31 13:29] LABS: Alanine Aminotransferase 25 U/L (0-31); Albumin Level 4.2 g/dL (3.5-5.0); Alkaline Phosphatase 219 U/L (39-117); Anion Gap 12 (12-20); Aspartate Amino Transferase 19 U/L (5-31); Blood Urea Nitrogen 27 mg/dL (9-16); Carbon Dioxide 30 mmol/L (22-29); Chloride 104 mmol/L (96-108); Estimated Glomerular Filt Rate 52; Glucose Random 94 mg/dL (60-115); Magnesium 1.9 mg/dL (1.6-2.6); Potassium 4.2 mmol/L (3.3-5.1); Sodium 142 mmol/L (135-145); Total Protein 8.3 g/dL (6.5-8.0)
[2021-03-31 13:34] LABS: Troponin-I High Sensitivity 17.3 ng/L (<3.5-17.0)
[2021-03-31 13:43] LABS: Bilirubin Direct < 0.2 mg/dL (0.0-0.5); Bilirubin Total < 0.2 mg/dL (0.0-1.0)
[2021-03-31] MEDS: 0.9 % Sodium Chloride 1,000 ML 999 ML IV (13:57)
[2021-03-31 14:51] LABS: Glucose, Whole Blood 132 mg/dL (60-115)
[2021-03-31 14:57] LABS: Reflex Lactate? Lactic Acid Added
[2021-03-31 16:00] LABS: Glucose, Whole Blood 99 mg/dL (60-115)
[2021-03-31 16:04] LABS: Glucose Urine UA NEG (NEG); Leukocyte Esterase Urine NEG (NEG); Nitrite Urine NEG (NEG); Specific Gravity - Urine 1.015 (1.005-1.025); UACC Culture Trigger NO; Urine Blood TRACE (NEG); Urine Ketones NEG (NEG); Urine Protein TRACE MG/DL (NEG-TRACE)
[2021-03-31 16:05] LABS: Appearance Urine CLEAR; Color Urine YELLOW
[2021-03-31 16:09] VITALS: BP 125/67; PULSE 58; RESP 12; O2SAT 99
[2021-03-31 16:21] LABS: Bacteria Urine TRACE /LPF; RBC Urine 0-2 /HPF (0); Squamous Epithelial Cell Urine TRACE /LPF; WBC Urine 0 /HPF (0-4)
--- NOTE | 2021-03-31 17:04 | PC.NURSE ---
staff attempted to obtain additional blood samples. Pt angry, crying, spitting and attempting to kick at staff. Provider aware, staff unable to continue to obtain blood samples.
[2021-04-01 07:29] LABS: Phenytoin Dilantin 49.8 ug/mL (10.0-20.0)
[2021-04-01 07:44] LABS: Carbamazepine Tegretol < 2.0 mcg/mL (5.0-12.0)
--- NOTE | 2021-04-01 08:08 | PC.NURSE ---
jason silverio/rn at [facility] and informed her of the critical tegretol and dilantin levels and suggested she contact his dr
[2021-04-07 16:52] LABS: Levetiracetam Keppra 31.2 mcg/mL (12.0-46.0)
== END 2021-03-31 20:26 | disposition skilled nursing facility (03) ==
PROVIDERS: Nurse Practitioner Family; Emergency Provider Emergency Medicine
DX: R56.9 Unspecified convulsions (principal); G44.309 Post-traumatic headache, unspecified, not intractable; F03.90 Unspecified dementia, unspecified severity, without behavioral disturbance, psychotic disturbance, mood disturbance, and anxiety; E11.9 Type 2 diabetes mellitus without complications; Z87.820 Personal history of traumatic brain injury; Z79.899 Other long term (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; Z79.4 Long term (current) use of insulin
CPT/HCPCS: 36415; 70450; 70486; 71046; 72125; 80048; 80076; 80156; 80177; 80185; 81001; 81003; 82550; 82947; 83605; 83735; 84484; 85025; 85610; 93005; 96360; 99285

== ENCOUNTER 2021-04-06 01:48 | Emergency (ER) | payer MEDICAID, SELFPAY ==
[2021-04-06 01:52] VITALS: BP 108/62; PULSE 75; RESP 16; O2SAT 99; BMI 34.0
[2021-04-06 02:05] LABS: Glucose, Whole Blood 114 mg/dL (60-115)
[2021-04-06 03:04] LABS: Glucose, Whole Blood 163 mg/dL (60-115)
[2021-04-06 04:56] LABS: Glucose, Whole Blood 258 mg/dL (60-115)
--- NOTE | 2021-04-06 05:12 | ED_ITS ---
HPI - Fall General Chief Complaint: Fall Stated Complaint: fall witnessed Time Seen by Provider: 04/06/21 05:07 Source: patient and other (Nursing report) Mode of arrival: EMS Limitations: other (Brain injury) History of Present Illness HPI Narrative: 50-year-old female who presents emergency department for evaluation dizziness fall and a low glucose. The patient is in a care facility. Apparently they were getting her up, she did complain of dizziness and then fell. Her point of care glucose was 58. The patient was given glucagon. Since being in the emergency department the patient has had repeat point of care glucose testing. Her initial glucose was 114 and is now 258. The patient has no complaints . She is requesting to be transferred back to her facility. Related Data Home Medications Medication Instructions Recorded Confirmed acetaminophen 325 mg tablet 650 mg PO Q6H PRN 03/19/21 03/19/21 atorvastatin 10 mg tablet 10 mg PO BEDTIME 03/19/21 03/19/21 benztropine 1 mg tablet 1 mg PO BID 03/19/21 03/19/21 docusate sodium 100 mg capsule 100 mg PO BID 03/19/21 03/19/21 ferrous sulfate 325 mg (65 mg 325 mg PO DAILY 03/19/21 03/19/21 iron) tablet gabapentin 600 mg tablet 600 mg PO TID 03/19/21 03/19/21 glucagon 1 mg solution for 1 mg IM DAILY PRN 03/19/21 03/20/21 injection haloperidol 10 mg tablet 10 mg PO BID 03/19/21 03/19/21 haloperidol 5 mg tablet 5 mg PO BID 03/19/21 03/19/21 ibuprofen 600 mg tablet 600 mg PO Q8H PRN 03/19/21 03/19/21 insulin glargine 100 unit/mL (3 15 unit SUBCUT BEDTIME 03/19/21 03/19/21 mL) subcutaneous pen (Lantus Solostar U-100 Insulin) levetiracetam 1,000 mg tablet 1,000 mg PO BID 03/19/21 03/19/21 levothyroxine 150 mcg tablet 150 mcg PO SUMOTUTHFRSA@30 03/19/21 03/20/21 levothyroxine 25 mcg tablet 25 mcg PO SUMOTUTHFRSA@30 03/19/21 03/20/21 metformin 1,000 mg tablet 1,000 mg PO BID 03/19/21 03/19/21 oxcarbazepine 150 mg tablet 150 mg PO BID 03/19/21 03/19/21 phenytoin sodium extended 200 mg 200 mg PO BID 03/19/21 03/19/21 capsule quetiapine 50 mg tablet 50 mg PO BID 03/19/21 03/19/21 sennosides 8.6 mg tablet (senna) 8.6 mg PO Q24H PRN 03/19/21 03/20/21 sodium phosphates 19 gram-7 118 ml OR DAILY PRN 03/19/21 03/19/21 gram/118 mL enema (Fleet Enema) chlorpheniramine maleate 2 mg/5 mL 4 mg PO Q4H PRN 03/20/21 03/20/21 oral liquid cholecalciferol (vitamin D3) 1,250 1,250 mcg PO QMONTH 03/20/21 03/20/21 mcg (50,000 unit) capsule cholecalciferol (vitamin D3) 1,250 1,250 mcg PO QMONTH 03/20/21 03/20/21 mcg (50,000 unit) capsule insulin aspart U-100 100 unit/mL See Protocol SUBCUT QIDACHS 03/20/21 03/20/21 subcutaneous cartridge (Novolog PenFill U-100 Insulin aspart) Previous Rx's Medication Instructions Recorded ertapenem 1 gram solution for 1 g IV DAILY #11 ea 03/22/21 injection (Invanz) insulin glargine 100 unit/mL 10 unit SUBCUT DAILY #1 ml 03/22/21 subcutaneous solution (Lantus U-100 Insulin) Allergies Allergy/AdvReac Type Severity Reaction Status Date / Time chlorpromazine Allergy Intermediate HIVES Verified 12/10/20 21:05 [CHLORPROMAZINE] Review of Systems Review of Systems: Yes Unobtainable due to mental condition (Traumatic brain injury) PMFSH Past Medical History Medical History Anxiety COVID-19 Cystitis Dementia Diabetes Diabetic retinopathy ESBL (extended spectrum beta-lactamase) producing bacteria infection Essential (primary) hypertension Hyperkalemia Hyperlipidemia Hypothermia Hypothyroid Leiomyoma of body of uterus Long QT syndrome Mood disorder Preglaucoma Presbyopia Seizure disorder Sepsis Subarachnoid hemorrhage following injury TBI (traumatic brain injury) Unspecified dementia with behavioral disturbance UTI (urinary tract infection) Social History Social History Household Members: Other Housing: Senior Care Do you presently have visiting nurse or other home services: No (from [facility]) Alcohol intake: never Patient Tobacco Use Status: Never used Tobacco Advance Directives: Yes Advance Directives Information Provided: Yes Advance Directives on File: Yes Advance Directives Date on File: 03/20/21 Patient : No service: No Current occupational status: disabled Physical Exam Vital Signs: Vital Signs: Last Vital Signs Pulse 75 04/06/21 01:52 Resp 16 04/06/21 01:52 BP 108/62 04/06/21 01:52 Pulse Ox 99 04/06/21 01:52 Body Mass Index 34.0 Const: Other: Patient is oriented to person only, she is pleasant cooperative but lacks insight as to why she is here. Orientation/consciousness: oriented to person Limitations: no limitations HENMT: Head: Yes normal to inspection, Yes normocephalic and Yes atraumatic Ears: external ears normal General nose exam: Normal external nose present Face and sinus: Yes normal facial exam Mouth: Normal oral and palatal mucosa present Throat: Yes posterior oropharynx normal Eyes: General: appearance normal, both eyes and all related structures Pupils: Equal, round and reactive pupils present Neck: Neck: Yes normal visual inspection, Yes no lymphadenopathy, Yes trachea midline and Yes supple Chest: Chest palpation & inspection: normal inspection of the chest and normal palpation of entire chest wall Resp: Effort & Inspection: normal respiratory effort and able to speak in complete sentences Auscultation: clear to auscultation bilaterally Cardio: Rate: regular rate Rhythm: regular rhythm Heart sounds: S1 normal heart sound present, S2 normal heart sound present and no murmurs GI: Inspection: Yes normal to inspection Palpation (GI): Soft to palpation, nontender and no guarding Auscultation: normal bowel sounds : General: Yes no CVA tenderness Back/Spine/Pelvis: Back: no CVA tenderness Skin: General skin exam: no rashes or lesions noted Neuro: General: oriented to person Cranial nerves: Yes CN's II-XII intact bilaterally and Yes Equal, round and reactive pupils present Motor exam (neuro): 5/5 motor strength present throughout Extrem: General: Yes normal to inspection Psych: Attitude: cooperative Course Course Course Narrative: 50-year-old female who presents emergency department for evaluation injuries from a witnessed fall. The patient did have some lightheadedness and dizziness prior to the fall was found to have a low point of care glucose of 58. She was treated with glucagon and sent to the emergency department. In the emergency department the patient is awake alert oriented to person. Her examination revealed no significant injury from the fall. The patient's point of care glucose has trended up since being in the emergency department however this is secondary to glucagon administration. We will give the patient food to eat. I do not think that the patient needs hospitalization and the patient will be discharged back to her care facility. MDM - Fall Lab Data Labs: Lab Results 04/06/21 04/06/21 04/06/21 Range/Units 01:58 03:00 04:53 POC Glucose 114 163 H 258 H (60-115) mg/dL Discharge Plan Discharge Clinical Impression: Fall, Hypoglycemia Patient Disposition: Home, Self-Care Additional Instructions: At this time, I do not think that you have any significant injuries from her fall Your point of care glucose of care glucose values have been trending up. We gave you food to eat. It is important to increase her food intake today to prevent further episodes of hypoglycemia. Follow-up with your doctor in 2 days. Please return to the emergency department if your symptoms get worse or if you develop any symptoms that are concerning to you. Prescriptions: No Action acetaminophen 325 mg Tablet 650 mg PO Q6H PRN (Reason: Fever Or Pain) RF: 0 atorvastatin 10 mg Tablet 10 mg PO BEDTIME RF: 0 benztropine 1 mg Tablet 1 mg PO BID RF: 0 gabapentin 600 mg Tablet 600 mg PO TID RF: 0 haloperidol 5 mg Tablet 5 mg PO BID RF: 0 levothyroxine 25 mcg Tablet 25 mcg PO SUMOTUTHFRSA@0630 RF: 0 ferrous sulfate 325 mg (65 mg iron) Tablet 325 mg PO DAILY RF: 0 metformin 1,000 mg Tablet 1,000 mg PO BID RF: 0 levothyroxine 150 mcg Tablet 150 mcg PO SUMOTUTHFRSA@0630 RF: 0 haloperidol 10 mg Tablet 10 mg PO BID RF: 0 Fleet Enema 19-7 gram/118 mL Enema 118 ml OR DAILY PRN (Reason: Constipation) RF: 0 docusate sodium 100 mg Capsule 100 mg PO BID RF: 0 glucagon 1 mg Recon Soln 1 mg IM DAILY PRN (Reason: Hypoglycemia) RF: 0 ibuprofen 600 mg Tablet 600 mg PO Q8H PRN (Reason: Pain) RF: 0 levetiracetam 1,000 mg Tablet 1,000 mg PO BID RF: 0 Lantus Solostar U-100 Insulin 100 unit/mL (3 mL) Insulin Pen 15 unit SUBCUT BEDTIME RF: 0 Hold Instructions: Resume on 03/29/21. oxcarbazepine 150 mg Tablet 150 mg PO BID RF: 0 sennosides [senna] 8.6 mg Tablet 8.6 mg PO Q24H PRN (Reason: Constipation) RF: 0 phenytoin sodium extended 200 mg Capsule 200 mg PO BID RF: 0 quetiapine 50 mg Tablet 50 mg PO BID RF: 0 insulin aspart U-100 [Novolog PenFill U-100 Insulin] 100 unit/mL Cartridge See Protocol sliding scale dose SUBCUT QIDACHS RF: 0 cholecalciferol (vitamin D3) 1,250 mcg (50,000 unit) Capsule 1,250 mcg PO QMONTH RF: 0 cholecalciferol (vitamin D3) 1,250 mcg (50,000 unit) Capsule 1,250 mcg PO QMONTH RF: 0 chlorpheniramine maleate 2 mg/5 mL Liquid 4 mg PO Q4H PRN (Reason: Cough) RF: 0 Lantus U-100 Insulin 100 unit/mL Solution 10 unit subcut DAILY Qty: 1 RF: 0 ertapenem [Invanz] 1 gram recon soln 1 g IV DAILY Qty: 11 RF: 0
--- NOTE | 2021-04-06 06:23 | PC.NURSE ---
nurse to nurse reprot called and given to [facility] at [facility].
[2021-04-06 07:40] VITALS: BP 149/74; PULSE 69; RESP 12; O2SAT 100
== END 2021-04-06 09:25 | disposition home or self-care (01) ==
PROVIDERS: Emergency Provider Emergency Medicine Emergency Medical Services
DX: E11.649 Type 2 diabetes mellitus with hypoglycemia without coma (principal); I10 Essential (primary) hypertension; F03.90 Unspecified dementia, unspecified severity, without behavioral disturbance, psychotic disturbance, mood disturbance, and anxiety; Z87.820 Personal history of traumatic brain injury; Z79.899 Other long term (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; Z79.4 Long term (current) use of insulin; Z79.02 Long term (current) use of antithrombotics/antiplatelets
CPT/HCPCS: 82947; 99283

== ENCOUNTER 2021-04-15 11:02 | Emergency (ER) | payer MEDICAID, SELFPAY ==
--- NOTE | ~2021-04-15 | CT_ITS ---
CT HEAD WITHOUT IV CONTRAST CT CERVICAL SPINE WITHOUT IV CONTRAST INDICATION: Seizure, hit head COMPARISON: CT head and cervical spine 03/31/2021 TECHNIQUE: Multidetector CT acquisitions of the head, and cervical spine were obtained without IV contrast. Multiplanar reformats were acquired and utilized for image interpretation. This CT examination was performed using dose optimization techniques as appropriate, variously including the following: *Automated exposure control *Adjustment of mA and/or kV according to patient size (this includes techniques or standardized protocols for targeted exams where dose is matched to indication/reason for exam; i.e. extremities or head) *Use of iterative reconstruction technique DLP: 1157 mGy-cm FINDINGS: HEAD: There is no intracranial hemorrhage or extra-axial fluid collection. The ventricles are unremarkable without hydrocephalus. No midline shift or mass effect. Gomez to white matter differentiation is diffusely maintained without evidence of an evolved acute territorial infarct. The basilar cisterns are preserved. No soft tissue or osseous abnormality. Hyperostosis frontalis interna is visualized. No evidence of skull fracture. Mild left parietal scalp thickening is unchanged from prior. The mastoid air cells and paranasal sinuses are well-aerated. CERVICAL SPINE: Mild cervical kyphosis. There is anatomic alignment of the vertebral bodies and posterior elements. Mild degenerative changes are seen with disc narrowing at C5-C6 and mild anterior osteophyte formation at multiple levels. There is no acute fracture and there is no acute subluxation. The craniocervical and atlantoaxial articulations are normal. There is no prevertebral soft tissue swelling. No significant soft tissue abnormality within the neck. The visualized lung apices are clear. CT/CT cervical spine wo con IMPRESSION: 1. No acute intracranial abnormality. 2. No acute osseous abnormality within the cervical spine. Mild degenerative changes and mild cervical kyphosis.
[2021-04-15 11:12] VITALS: BP 157/79; BP 160/97; PULSE 93; PULSE 98; RESP 18; TEMP 36.6; O2SAT 100; O2SAT 97; BMI 34.5
--- NOTE | 2021-04-15 11:20 | ED.GENADULT ---
HPI - General Adult General Chief complaint: General Medical Stated complaint: fall x2, unwitnessed, seizure hx Time Seen by Provider: 04/15/21 11:10 Source: EMS Mode of arrival: EMS Limitations: altered mental status History of Present Illness HPI narrative: 50-year-old female coming from [facility] with a past medical history of TBI, dementia, seizure disorder on multiple antiepileptics, mood disorder, anxiety, diabetes, hypertension, hyperlipidemia, hypothyroidism, here after 2 falls in the last 24 hrs. One of the falls was unwitnessed. The second one was witnessed by staff and described as not responding with eyes open. On arrival patient is alert, following commmnds. Notes from [facility] are requesting dilantin and tsh levels. Related Data Home Medications Medication Instructions Recorded Confirmed acetaminophen 325 mg tablet 650 mg PO Q6H PRN 03/19/21 03/19/21 atorvastatin 10 mg tablet 10 mg PO BEDTIME 03/19/21 03/19/21 benztropine 1 mg tablet 1 mg PO BID 03/19/21 03/19/21 docusate sodium 100 mg capsule 100 mg PO BID 03/19/21 03/19/21 ferrous sulfate 325 mg (65 mg 325 mg PO DAILY 03/19/21 03/19/21 iron) tablet gabapentin 600 mg tablet 600 mg PO TID 03/19/21 03/19/21 glucagon 1 mg solution for 1 mg IM DAILY PRN 03/19/21 03/20/21 injection haloperidol 10 mg tablet 10 mg PO BID 03/19/21 03/19/21 haloperidol 5 mg tablet 5 mg PO BID 03/19/21 03/19/21 ibuprofen 600 mg tablet 600 mg PO Q8H PRN 03/19/21 03/19/21 insulin glargine 100 unit/mL (3 15 unit SUBCUT BEDTIME 03/19/21 03/19/21 mL) subcutaneous pen (Lantus Solostar U-100 Insulin) levetiracetam 1,000 mg tablet 1,000 mg PO BID 03/19/21 03/19/21 levothyroxine 150 mcg tablet 150 mcg PO SUMOTUTHFRSA@30 03/19/21 03/20/21 levothyroxine 25 mcg tablet 25 mcg PO SUMOTUTHFRSA@30 03/19/21 03/20/21 metformin 1,000 mg tablet 1,000 mg PO BID 03/19/21 03/19/21 oxcarbazepine 150 mg tablet 150 mg PO BID 03/19/21 03/19/21 phenytoin sodium extended 200 mg 200 mg PO BID 03/19/21 03/19/21 capsule quetiapine 50 mg tablet 50 mg PO BID 03/19/21 03/19/21 sennosides 8.6 mg tablet (senna) 8.6 mg PO Q24H PRN 03/19/21 03/20/21 sodium phosphates 19 gram-7 118 ml KS DAILY PRN 03/19/21 03/19/21 gram/118 mL enema (Fleet Enema) chlorpheniramine maleate 2 mg/5 mL 4 mg PO Q4H PRN 03/20/21 03/20/21 oral liquid cholecalciferol (vitamin D3) 1,250 1,250 mcg PO QMONTH 03/20/21 03/20/21 mcg (50,000 unit) capsule cholecalciferol (vitamin D3) 1,250 1,250 mcg PO QMONTH 03/20/21 03/20/21 mcg (50,000 unit) capsule insulin aspart U-100 100 unit/mL See Protocol SUBCUT QIDACHS 03/20/21 03/20/21 subcutaneous cartridge (Novolog PenFill U-100 Insulin aspart) Previous Rx's Medication Instructions Recorded ertapenem 1 gram solution for 1 g IV DAILY #11 ea 03/22/21 injection (Invanz) insulin glargine 100 unit/mL 10 unit SUBCUT DAILY #1 ml 03/22/21 subcutaneous solution (Lantus U-100 Insulin) Allergies Allergy/AdvReac Type Severity Reaction Status Date / Time chlorpromazine Allergy Intermediate HIVES Verified 12/10/20 21:05 [CHLORPROMAZINE] Review of Systems Review of Systems: Yes Unobtainable due to mental status Neurologic: Reports confusion Psychiatric: Psychiatric: Reports confusion PMFSH Past Medical History Attestation statement: The following information was validated with the patient. Source: old records reviewed and nursing notes reviewed Medical History Anxiety COVID-19 Cystitis Dementia Diabetes Diabetic retinopathy ESBL (extended spectrum beta-lactamase) producing bacteria infection Essential (primary) hypertension Hyperkalemia Hyperlipidemia Hypothermia Hypothyroid Leiomyoma of body of uterus Long QT syndrome Mood disorder Preglaucoma Presbyopia Seizure disorder Sepsis Subarachnoid hemorrhage following injury TBI (traumatic brain injury) Unspecified dementia with behavioral disturbance UTI (urinary tract infection) Social History Social History Household Members: Other Housing: Custodial Do you presently have visiting nurse or other home services: No (from [facility]) Alcohol intake: never Patient Tobacco Use Status: Never used Tobacco Use of substances other than those prescribed or required for medical reasons: No Advance Directives: Yes Advance Directives on File: Yes Advance Directives Date on File: 03/20/21 Patient : No service: No Current occupational status: disabled Physical Exam Vital Signs: Vital Signs: Last Vital Signs Temp 98.4 F 04/15/21 14:00 Pulse 97 04/15/21 14:00 Resp 18 04/15/21 14:00 BP 136/78 04/15/21 14:00 Pulse Ox 99 04/15/21 14:00 Body Mass Index 34.5 Const: General: alert and confusion Orientation/consciousness: confusion Limitations: altered mental status HENMT: Head: Yes normal to inspection Ears: hearing grossly normal bilaterally General nose exam: Normal external nose present Face and sinus: Yes normal facial exam Mouth: Normal oral and palatal mucosa present Throat: Yes posterior oropharynx normal Eyes: General: appearance normal, both eyes and all related structures Pupils: Equal, round and reactive pupils present Neck: Other: cervical collar in place-limited exam d/t collar Neck: Yes normal visual inspection Chest: Chest palpation & inspection: normal inspection of the chest Resp: Effort & Inspection: normal respiratory effort Auscultation: clear to auscultation bilaterally Cardio: Rate: regular rate Rhythm: regular rhythm Peripheral pulses: Peripheral pulses 2+ throughout GI: Inspection: Yes normal to inspection Palpation (GI): Soft to palpation and nontender Auscultation: normal bowel sounds Back/Spine/Pelvis: Thoracic/Lumbar Spine: thoracic and lumbar spine normal to inspection Skin: General skin exam: no rashes or lesions noted Neuro: General: moves all extremities, normal sensation to monofilament and confusion Cranial nerves: Yes Equal, round and reactive pupils present Extrem: General: Yes normal to inspection, Yes no pedal edema and Yes no calf tenderness Course Course Course Narrative: 50 yo female here after unwitnessed fall with concern for seizure. H/o seizures on multiple antiepileptics. On arrival alert and moving all extremities. +confused which is patients baseline. Staff requesting drug levels and tsh. Will check CT head/neck, labs, UA. Seizure precautions in place. 1330-imaging shows no acute finding. Labs are normal with the exception of a critically low Dilantin level. Unwanted the patient's previous ER visit she was noted to have a critically high Dilantin levels with multiple falls at the long-term care facility. Therefore high Dilantin was held for some time. I did discuss this with the patient's provider Dr. kamara. We will load the patient with a dose of Dilantin here in the emergency department and then transfer her back to [facility]. He will take care of additional doses. -500mg IV dilantin ordered. Medical Decision Making MDM Narrative Medical decision making narrative: Epileptic seizure disorder Medical Records Medical records reviewed: Yes I reviewed the patient's medical records. Lab Data Lab results reviewed: Yes I reviewed the patient's lab results. Result diagrams: 04/15/21 11:38 04/15/21 11:38 Labs: Lab Results 04/15/21 04/15/21 Range/Units 11:38 11:38 WBC 5.6 (4.8-10.8) X10*3/uL RBC 3.54 L (4.20-5.50) X10*6/uL Hgb 9.8 L (12.0-16.0) g/dl Hct 30.7 L (37-47) % MCV 86.7 (80-98) fL MCH 27.7 (27.0-33.0) pg MCHC 31.9 (31.0-35.0) g/dl RDW 14.8 (11.0-16.0) % Plt Count 248 D (160-400) X10*3/uL MPV 10.2 (9.4-12.3) fL Immature Gran % (Auto) 0.4 (0.0-0.4) % Neut % (Auto) 71.9 (45-73) % Lymph % (Auto) 20.2 (20-40) % Finney % (Auto) 7.3 (2-11) % Eos % (Auto) 0.0 (0-4) % Baso % (Auto) 0.2 (0-2) % Lymph # (Auto) 1.1 L (1.2-4.9) X10*3/uL Finney # (Auto) 0.4 (0.1-1.2) X10*3/uL Eos # (Auto) 0.0 (0.0-0.4) X10*3/uL Baso # (Auto) 0.0 (0.0-0.2) X10*3/uL Abs Immat Gran (auto) 0.02 (0.00-0.03) X10*3/uL Absolute Neuts (auto) 4.1 (2.0-8.3) X10*3/uL Absolute Nucleated RBC 0.000 (0.0-0.012) X10*3/uL Nucleated RBC % (auto) 0.0 (0.0-0.2) /100WBC Sodium 139 (135-145) mmol/L Potassium 4.5 (3.3-5.1) mmol/L Chloride 103 (96-108) mmol/L Carbon Dioxide 29 (22-29) mmol/L Anion Gap 12 (12-20) BUN 22 H (9-16) mg/dL Creatinine 1.14 (0.5-1.4) mg/dL Estim Creat Clear Calc 73.3 Estimated GFR 50 Random Glucose 100 (60-115) mg/dL Calcium 10.1 (8.4-10.2) mg/dL TSH 0.80 (0.32-4.0) uIU/mL Phenytoin 5.4 L* (10.0-20.0) ug/mL Imaging Data CT head/neck: Attestation: I personally reviewed and interpreted this imaging study as follows: Radiologist's impression: HEAD: There is no intracranial hemorrhage or extra-axial fluid collection. The ventricles are unremarkable without hydrocephalus. No midline shift or mass effect. Gomez to white matter differentiation is diffusely maintained without evidence of an evolved acute territorial infarct. The basilar cisterns are preserved. No soft tissue or osseous abnormality. Hyperostosis frontalis interna is visualized. No evidence of skull fracture. Mild left parietal scalp thickening is unchanged from prior. The mastoid air cells and paranasal sinuses are well-aerated. CERVICAL SPINE: Mild cervical kyphosis. There is anatomic alignment of the vertebral bodies and posterior elements. Mild degenerative changes are seen with disc narrowing at C5-C6 and mild anterior osteophyte formation at multiple levels. There is no acute fracture and there is no acute subluxation. The craniocervical and atlantoaxial articulations are normal. There is no prevertebral soft tissue swelling. No significant soft tissue abnormality within the neck. The visualized lung apices are clear. CT/CT head/brain wo con IMPRESSION: 1. No acute intracranial abnormality. ? 2. No acute osseous abnormality within the cervical spine. Mild degenerative changes and mild cervical kyphosis. ? Discharge Plan Discharge Clinical Impression: Seizures Patient Disposition: er Transfer Details: [facility] Instructions: Epilepsy (ED) Additional Instructions: CT scan normal Dilantin level 5.4. The patient received a loading dose of Dilantin 500 mg IV while she was here in the emergency department. Her TSH was 0.80 Prescriptions: No Action acetaminophen 325 mg Tablet 650 mg PO Q6H PRN (Reason: Fever Or Pain) RF: 0 atorvastatin 10 mg Tablet 10 mg PO BEDTIME RF: 0 benztropine 1 mg Tablet 1 mg PO BID RF: 0 gabapentin 600 mg Tablet 600 mg PO TID RF: 0 haloperidol 5 mg Tablet 5 mg PO BID RF: 0 levothyroxine 25 mcg Tablet 25 mcg PO SUMOTUTHFRSA@0630 RF: 0 ferrous sulfate 325 mg (65 mg iron) Tablet 325 mg PO DAILY RF: 0 metformin 1,000 mg Tablet 1,000 mg PO BID RF: 0 levothyroxine 150 mcg Tablet 150 mcg PO SUMOTUTHFRSA@0630 RF: 0 haloperidol 10 mg Tablet 10 mg PO BID RF: 0 Fleet Enema 19-7 gram/118 mL Enema 118 ml KS DAILY PRN (Reason: Constipation) RF: 0 docusate sodium 100 mg Capsule 100 mg PO BID RF: 0 glucagon 1 mg Recon Soln 1 mg IM DAILY PRN (Reason: Hypoglycemia) RF: 0 ibuprofen 600 mg Tablet 600 mg PO Q8H PRN (Reason: Pain) RF: 0 levetiracetam 1,000 mg Tablet 1,000 mg PO BID RF: 0 Lantus Solostar U-100 Insulin 100 unit/mL (3 mL) Insulin Pen 15 unit SUBCUT BEDTIME RF: 0 Hold Instructions: Resume on 03/29/21. oxcarbazepine 150 mg Tablet 150 mg PO BID RF: 0 sennosides [senna] 8.6 mg Tablet 8.6 mg PO Q24H PRN (Reason: Constipation) RF: 0 phenytoin sodium extended 200 mg Capsule 200 mg PO BID RF: 0 quetiapine 50 mg Tablet 50 mg PO BID RF: 0 insulin aspart U-100 [Novolog PenFill U-100 Insulin] 100 unit/mL Cartridge See Protocol sliding scale dose SUBCUT QIDACHS RF: 0 cholecalciferol (vitamin D3) 1,250 mcg (50,000 unit) Capsule 1,250 mcg PO QMONTH RF: 0 cholecalciferol (vitamin D3) 1,250 mcg (50,000 unit) Capsule 1,250 mcg PO QMONTH RF: 0 chlorpheniramine maleate 2 mg/5 mL Liquid 4 mg PO Q4H PRN (Reason: Cough) RF: 0 Lantus U-100 Insulin 100 unit/mL Solution 10 unit subcut DAILY Qty: 1 RF: 0 ertapenem [Invanz] 1 gram recon soln 1 g IV DAILY Qty: 11 RF: 0
[2021-04-15 11:44] LABS: MANUAL DIFF FLAG NO
--- NOTE | 2021-04-15 11:57 | PC.NURSE ---
1 tech with 3 additional techs assisting attempted to straight cath patient, pt became irritable/combative not allowing straight cath, bed cooper put under patient, patient then climbed out of the end of the bed despite techs and 3 nursing staff attempting to prevent patient, patient insisted to walk to bathroom with nursing staff. patient ambulated with nursing staff and a tech to the bathroom. provider notified
[2021-04-15 12:00] LABS: Basophils Percent Auto 0.2 % (0-2); Hematocrit 30.7 % (37-47); Hemoglobin 9.8 g/dl (12.0-16.0); Imm Gran Abs Auto 0.02 X10*3/uL (0.00-0.03); Imm Gran Pct Auto 0.4 % (0.0-0.4); Lymphocytes Absolute Auto 1.1 X10*3/uL (1.2-4.9); Lymphocytes Percent Auto 20.2 % (20-40); Mean Corpuscular HGB Conc 31.9 g/dl (31.0-35.0); Mean Corpuscular Hemoglobin 27.7 pg (27.0-33.0); Mean Corpuscular Volume 86.7 fL (80-98); Mean Platelet Volume 10.2 fL (9.4-12.3); Monocytes Absolute Auto 0.4 X10*3/uL (0.1-1.2); Monocytes Percent Auto 7.3 % (2-11); Neutrophils Absolute Auto 4.1 X10*3/uL (2.0-8.3); Neutrophils Percent Auto 71.9 % (45-73); Platelet Count 248 X10*3/uL (160-400); Red Blood Count 3.54 X10*6/uL (4.20-5.50); Red Cell Distribution Width 14.8 % (11.0-16.0); White Blood Count 5.6 X10*3/uL (4.8-10.8)
[2021-04-15 12:22] LABS: Anion Gap 12 (12-20); Blood Urea Nitrogen 22 mg/dL (9-16); Calcium 10.1 mg/dL (8.4-10.2); Carbon Dioxide 29 mmol/L (22-29); Chloride 103 mmol/L (96-108); Creatinine Clr Calc Pharmacy 73.3; Estimated Glomerular Filt Rate 50; Glucose Random 100 mg/dL (60-115); Potassium 4.5 mmol/L (3.3-5.1); Sodium 139 mmol/L (135-145)
[2021-04-15 12:36] LABS: Phenytoin Dilantin 5.4 ug/mL (10.0-20.0)
[2021-04-15 14:00] VITALS: BP 136/78; PULSE 97; RESP 18; TEMP 36.9; O2SAT 99
--- NOTE | 2021-04-15 14:05 | PC.NURSE ---
nruse from [facility] called and stated that recently the patients dilantin was held for a week due to a high level of 16, she was just started back on the dilantin.
[2021-04-15] MEDS: Phenytoin Sodium 500 MG in 0.9 % Sodium Chloride 100 ML 110 MG IV (14:19)
--- NOTE | 2021-04-15 14:22 | PC.NURSE ---
US guided iv started, pt medicated per order, vss, will continue to monitor.
--- NOTE | 2021-04-15 15:06 | PC.NURSE ---
[facility] called, spoke with Jett callaway [phone] nurse, gave her report while on the phone with her, they will expect the patient when she is ready to discharge
== END 2021-04-15 16:48 | disposition skilled nursing facility (03) ==
PROVIDERS: Nurse Practitioner Family; Emergency Provider Emergency Medicine; PCP Hospitalist
DX: R56.9 Unspecified convulsions (principal); Z91.81 History of falling; E11.9 Type 2 diabetes mellitus without complications; I10 Essential (primary) hypertension; E78.5 Hyperlipidemia, unspecified; Z79.4 Long term (current) use of insulin; Z79.02 Long term (current) use of antithrombotics/antiplatelets; Z79.899 Other long term (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; Z87.820 Personal history of traumatic brain injury
CPT/HCPCS: 36415; 70450; 72125; 80048; 80177; 80185; 80339; 84443; 85025; 96365; 99284

== ENCOUNTER 2021-05-07 12:49 | Emergency (ER) | payer MEDICAID, SELFPAY ==
[2021-05-07 12:56] VITALS: BP 141/86; PULSE 90; O2SAT 98
[2021-05-07 12:58] VITALS: BP 134/73; PULSE 112; RESP 16; TEMP 36.6; O2SAT 98; BMI 28.7
--- NOTE | 2021-05-07 13:10 | ED_ITS ---
HPI - Altered Mental Status General Chief Complaint: Altered Mental Status Stated Complaint: ams Time Seen by Provider: 05/07/21 13:10 Source: EMS Mode of arrival: EMS Limitations: altered mental status History of Present Illness HPI narrative: 50-year-old female coming from [facility] with a past medical history of TBI, dementia, seizure disorder on multiple antiepileptics, mood disorder, anxiety, diabetes, hypertension, hyperlipidemia, hypothyroidism here with AMS over the last several days. Per nursing provider at [facility] one concerned this may be secondary to abnormal dilantin level. Patient has had labile levels over the last few visits with falls secondary to high levels. Related Data Home Medications Medication Instructions Recorded Confirmed acetaminophen 325 mg tablet 650 mg PO Q6H PRN 03/19/21 03/19/21 atorvastatin 10 mg tablet 10 mg PO BEDTIME 03/19/21 03/19/21 benztropine 1 mg tablet 1 mg PO BID 03/19/21 03/19/21 docusate sodium 100 mg capsule 100 mg PO BID 03/19/21 03/19/21 ferrous sulfate 325 mg (65 mg 325 mg PO DAILY 03/19/21 03/19/21 iron) tablet gabapentin 600 mg tablet 600 mg PO TID 03/19/21 03/19/21 glucagon 1 mg solution for 1 mg IM DAILY PRN 03/19/21 03/20/21 injection haloperidol 10 mg tablet 10 mg PO BID 03/19/21 03/19/21 haloperidol 5 mg tablet 5 mg PO BID 03/19/21 03/19/21 ibuprofen 600 mg tablet 600 mg PO Q8H PRN 03/19/21 03/19/21 insulin glargine 100 unit/mL (3 15 unit SUBCUT BEDTIME 03/19/21 03/19/21 mL) subcutaneous pen (Lantus Solostar U-100 Insulin) levetiracetam 1,000 mg tablet 1,000 mg PO BID 03/19/21 03/19/21 levothyroxine 150 mcg tablet 150 mcg PO SUMOTUTHFRSA@30 03/19/21 03/20/21 levothyroxine 25 mcg tablet 25 mcg PO SUMOTUTHFRSA@62903/19/21 03/20/21 metformin 1,000 mg tablet 1,000 mg PO BID 03/19/21 03/19/21 oxcarbazepine 150 mg tablet 150 mg PO BID 03/19/21 03/19/21 phenytoin sodium extended 200 mg 200 mg PO BID 03/19/21 03/19/21 capsule quetiapine 50 mg tablet 50 mg PO BID 03/19/21 03/19/21 sennosides 8.6 mg tablet (senna) 8.6 mg PO Q24H PRN 03/19/21 03/20/21 sodium phosphates 19 gram-7 118 ml CO DAILY PRN 03/19/21 03/19/21 gram/118 mL enema (Fleet Enema) chlorpheniramine maleate 2 mg/5 mL 4 mg PO Q4H PRN 03/20/21 03/20/21 oral liquid cholecalciferol (vitamin D3) 1,250 1,250 mcg PO QMONTH 03/20/21 03/20/21 mcg (50,000 unit) capsule cholecalciferol (vitamin D3) 1,250 1,250 mcg PO QMONTH 03/20/21 03/20/21 mcg (50,000 unit) capsule insulin aspart U-100 100 unit/mL See Protocol SUBCUT QIDACHS 03/20/21 03/20/21 subcutaneous cartridge (Novolog PenFill U-100 Insulin aspart) Previous Rx's Medication Instructions Recorded ertapenem 1 gram solution for 1 g IV DAILY #11 ea 03/22/21 injection (Invanz) insulin glargine 100 unit/mL 10 unit SUBCUT DAILY #1 ml 03/22/21 subcutaneous solution (Lantus U-100 Insulin) Allergies Allergy/AdvReac Type Severity Reaction Status Date / Time chlorpromazine Allergy Intermediate HIVES Verified 12/10/20 21:05 [CHLORPROMAZINE] Review of Systems Review of Systems: Yes Unobtainable due to mental status Neurologic: Reports confusion Psychiatric: Psychiatric: Reports confusion [facility] Past Medical History Attestation statement: The following information was validated with the patient. Source: old records reviewed and nursing notes reviewed Medical History Anxiety COVID-19 Cystitis Dementia Diabetes Diabetic retinopathy ESBL (extended spectrum beta-lactamase) producing bacteria infection Essential (primary) hypertension Hyperkalemia Hyperlipidemia Hypothermia Hypothyroid Leiomyoma of body of uterus Long QT syndrome Mood disorder Preglaucoma Presbyopia Seizure disorder Sepsis Subarachnoid hemorrhage following injury TBI (traumatic brain injury) Unspecified dementia with behavioral disturbance UTI (urinary tract infection) Social History Social History Household Members: Other Housing: Retirement Do you presently have visiting nurse or other home services: No (from [facility]) Alcohol intake: never Patient Tobacco Use Status: Never used Tobacco Advance Directives: Yes Advance Directives on File: Yes Advance Directives Date on File: 03/23/21 Patient : No service: No Current occupational status: disabled Physical Exam Vital Signs: Vital Signs: Last Vital Signs Temp 98.7 F 05/07/21 18:22 Pulse 90 05/07/21 18:22 Resp 16 05/07/21 18:22 BP 105/55 L 05/07/21 18:22 Pulse Ox 98 05/07/21 18:22 Body Mass Index 28.7 Const: General: no acute distress, alert and confusion Orientation/consciousness: confusion Limitations: altered mental status HENMT: Head: Yes normal to inspection Ears: hearing grossly normal bilaterally General nose exam: Normal external nose present Face and sinus: Yes normal facial exam Mouth: Normal oral and palatal mucosa present Throat: Yes posterior oropharynx normal Eyes: General: appearance normal, both eyes and all related structures Pupils: Equal, round and reactive pupils present Neck: Neck: Yes normal visual inspection, Yes full ROM and Yes no lymphadenopathy Chest: Chest palpation & inspection: normal inspection of the chest Resp: Effort & Inspection: normal respiratory effort Auscultation: clear to auscultation bilaterally Cardio: Rate: regular rate Rhythm: regular rhythm Peripheral pulses: Peripheral pulses 2+ throughout GI: Inspection: Yes normal to inspection Palpation (GI): Soft to palpation and nontender Auscultation: normal bowel sounds Back/Spine/Pelvis: Thoracic/Lumbar Spine: thoracic and lumbar spine normal to inspection Skin: General skin exam: no rashes or lesions noted Neuro: General: moves all extremities, Normal light touch and pain sensation and confusion Cranial nerves: Yes Equal, round and reactive pupils present Gait exam (Neuro): Normal gait present Extrem: General: Yes normal to inspection, Yes no pedal edema and Yes no calf tenderness Course Course Course Narrative: 50-year-old female here with reports of altered mental status over the last few days. No known falls or injuries however patient does have history of falls in the past. She does have underlying dementia and is confused at baseline. Spoke to the patient's primary provider (dr kamara) who knows the patient very well. She has had labile Dilantin levels and they are requesting a Dilantin level in addition to some labs. Also requesting a urine sample. Does not feel the patient needs additional imaging or CT scan of head. 1730-mild hyperglycemia. No evidence of DKA. Patient received 10 units of subcu insulin with improvement of blood sugar. Her Dilantin level is critically low. It has been held due to previous high levels. Pending urine 1999-nursing has been unable to obtain a urine sample. This was discussed with the patient's primary physician Dr. kamara. He will follow up with urine testing tomorrow outpatient. MDM - Altered Mental Status Differential Diagnosis Differential diagnosis: Likely altered mental status Medical Records Attestation: I reviewed the patient's medical records. Lab Data Attestation: I reviewed the patient's lab results. Result diagrams: 05/07/21 14:59 05/07/21 14:59 Labs: Lab Results 05/07/21 05/07/21 05/07/21 Range/Units 14:59 14:59 17:18 WBC 8.3 (4.8-10.8) X10*3/uL RBC 4.19 L (4.20-5.50) X10*6/uL Hgb 11.7 L (12.0-16.0) g/dl Hct 36.2 L (37-47) % MCV 86.4 (80-98) fL MCH 27.9 (27.0-33.0) pg MCHC 32.3 (31.0-35.0) g/dl RDW 14.6 (11.0-16.0) % Plt Count 299 (160-400) X10*3/uL MPV 10.6 (9.4-12.3) fL Immature Gran % (Auto) 0.2 (0.0-0.4) % Neut % (Auto) 79.0 H (45-73) % Lymph % (Auto) 14.3 L (20-40) % Bath % (Auto) 6.3 (2-11) % Eos % (Auto) 0.0 (0-4) % Baso % (Auto) 0.2 (0-2) % Lymph # (Auto) 1.2 (1.2-4.9) X10*3/uL Bath # (Auto) 0.5 (0.1-1.2) X10*3/uL Eos # (Auto) 0.0 (0.0-0.4) X10*3/uL Baso # (Auto) 0.0 (0.0-0.2) X10*3/uL Abs Immat Gran (auto) 0.02 (0.00-0.03) X10*3/uL Absolute Neuts (auto) 6.5 (2.0-8.3) X10*3/uL Absolute Nucleated RBC 0.000 (0.0-0.012) X10*3/uL Nucleated RBC % (auto) 0.0 (0.0-0.2) /100WBC Sodium 136 (135-145) mmol/L Potassium 4.7 (3.3-5.1) mmol/L Chloride 98 (96-108) mmol/L Carbon Dioxide 25 (22-29) mmol/L Anion Gap 18 (12-20) BUN 16 (9-16) mg/dL Creatinine 1.36 (0.5-1.4) mg/dL Estim Creat Clear Calc 59.8 Estimated GFR 41 POC Glucose 229 H (60-115) mg/dL Random Glucose 353 H* (60-115) mg/dL Calcium 9.9 (8.4-10.2) mg/dL Magnesium 1.8 (1.6-2.6) mg/dL Total Bilirubin < 0.2 (0.0-1.0) mg/dL Direct Bilirubin < 0.2 (0.0-0.5) mg/dL AST 13 (5-31) U/L ALT 12 (0-31) U/L Alkaline Phosphatase 213 H (39-117) U/L Total Protein 8.7 H (6.5-8.0) g/dL Albumin 4.5 (3.5-5.0) g/dL Phenytoin 1.9 L* (10.0-20.0) ug/mL Discharge Plan Discharge Clinical Impression: Altered mental status, Dementia, Hyperglycemia Patient Disposition: Xfer SNF Transfer [facility]: [facility] Instructions: Altered Mental Status (ED), Diabetic Hyperglycemia (ED) Additional Instructions: Dilantin level 1.9. Keppra and ox carbamazepine levels are pending Patient was mildly hyperglycemic and received 10 units of subcu insulin with improvement of her blood sugar. No evidence of DKA. We were unable to obtain a urine sample. This was discussed with Dr. kamara Prescriptions: No Action acetaminophen 325 mg Tablet 650 mg PO Q6H PRN (Reason: Fever Or Pain) RF: 0 atorvastatin 10 mg Tablet 10 mg PO BEDTIME RF: 0 benztropine 1 mg Tablet 1 mg PO BID RF: 0 gabapentin 600 mg Tablet 600 mg PO TID RF: 0 haloperidol 5 mg Tablet 5 mg PO BID RF: 0 levothyroxine 25 mcg Tablet 25 mcg PO SUMOTUTHFRSA@0630 RF: 0 ferrous sulfate 325 mg (65 mg iron) Tablet 325 mg PO DAILY RF: 0 metformin 1,000 mg Tablet 1,000 mg PO BID RF: 0 levothyroxine 150 mcg Tablet 150 mcg PO SUMOTUTHFRSA@0630 RF: 0 haloperidol 10 mg Tablet 10 mg PO BID RF: 0 Fleet Enema 19-7 gram/118 mL Enema 118 ml CO DAILY PRN (Reason: Constipation) RF: 0 docusate sodium 100 mg Capsule 100 mg PO BID RF: 0 glucagon 1 mg Recon Soln 1 mg IM DAILY PRN (Reason: Hypoglycemia) RF: 0 ibuprofen 600 mg Tablet 600 mg PO Q8H PRN (Reason: Pain) RF: 0 levetiracetam 1,000 mg Tablet 1,000 mg PO BID RF: 0 Lantus Solostar U-100 Insulin 100 unit/mL (3 mL) Insulin Pen 15 unit SUBCUT BEDTIME RF: 0 Hold Instructions: Resume on 03/29/21. oxcarbazepine 150 mg Tablet 150 mg PO BID RF: 0 sennosides [senna] 8.6 mg Tablet 8.6 mg PO Q24H PRN (Reason: Constipation) RF: 0 phenytoin sodium extended 200 mg Capsule 200 mg PO BID RF: 0 quetiapine 50 mg Tablet 50 mg PO BID RF: 0 insulin aspart U-100 [Novolog PenFill U-100 Insulin] 100 unit/mL Cartridge See Protocol sliding scale dose SUBCUT QIDACHS RF: 0 cholecalciferol (vitamin D3) 1,250 mcg (50,000 unit) Capsule 1,250 mcg PO QMONTH RF: 0 cholecalciferol (vitamin D3) 1,250 mcg (50,000 unit) Capsule 1,250 mcg PO QMONTH RF: 0 chlorpheniramine maleate 2 mg/5 mL Liquid 4 mg PO Q4H PRN (Reason: Cough) RF: 0 Lantus U-100 Insulin 100 unit/mL Solution 10 unit subcut DAILY Qty: 1 RF: 0 ertapenem [Invanz] 1 gram recon soln 1 g IV DAILY Qty: 11 RF: 0 Interventions: ED Discharge Assessment Last Done: 05/07/21 21:01
[2021-05-07 15:05] LABS: MANUAL DIFF FLAG NO
[2021-05-07 15:06] LABS: Basophils Percent Auto 0.2 % (0-2); Hematocrit 36.2 % (37-47); Hemoglobin 11.7 g/dl (12.0-16.0); Imm Gran Abs Auto 0.02 X10*3/uL (0.00-0.03); Imm Gran Pct Auto 0.2 % (0.0-0.4); Lymphocytes Absolute Auto 1.2 X10*3/uL (1.2-4.9); Lymphocytes Percent Auto 14.3 % (20-40); Mean Corpuscular HGB Conc 32.3 g/dl (31.0-35.0); Mean Corpuscular Hemoglobin 27.9 pg (27.0-33.0); Mean Corpuscular Volume 86.4 fL (80-98); Mean Platelet Volume 10.6 fL (9.4-12.3); Monocytes Absolute Auto 0.5 X10*3/uL (0.1-1.2); Monocytes Percent Auto 6.3 % (2-11); Neutrophils Absolute Auto 6.5 X10*3/uL (2.0-8.3); Platelet Count 299 X10*3/uL (160-400); Red Blood Count 4.19 X10*6/uL (4.20-5.50); Red Cell Distribution Width 14.6 % (11.0-16.0); White Blood Count 8.3 X10*3/uL (4.8-10.8)
--- NOTE | 2021-05-07 15:15 | PC.NURSE ---
PT DIFFICULT LAB DRAW. SPECIMENS WERE SENT AND AWAITING RESULTS. PT IS SITTING IN ROOM . SHE HAS WALKED TO THE BATHROOM WITH A STEADY GAIT.
[2021-05-07 15:20] VITALS: BP 137/77; PULSE 92; RESP 20; TEMP 37.4; O2SAT 99
[2021-05-07 15:30] LABS: Alanine Aminotransferase 12 U/L (0-31); Albumin Level 4.5 g/dL (3.5-5.0); Alkaline Phosphatase 213 U/L (39-117); Anion Gap 18 (12-20); Aspartate Amino Transferase 13 U/L (5-31); Bilirubin Direct < 0.2 mg/dL (0.0-0.5); Bilirubin Total < 0.2 mg/dL (0.0-1.0); Blood Urea Nitrogen 16 mg/dL (9-16); Calcium 9.9 mg/dL (8.4-10.2); Carbon Dioxide 25 mmol/L (22-29); Chloride 98 mmol/L (96-108); Creatinine Clr Calc Pharmacy 59.8; Estimated Glomerular Filt Rate 41; Glucose Random 353 mg/dL (60-115); Potassium 4.7 mmol/L (3.3-5.1); Sodium 136 mmol/L (135-145); Total Protein 8.7 g/dL (6.5-8.0)
[2021-05-07 15:51] LABS: Phenytoin Dilantin 1.9 ug/mL (10.0-20.0)
[2021-05-07] MEDS: Insulin Lispro 100 UNIT/ML 3 ML VIAL 10 UNIT SUBCUT (15:58)
[2021-05-07 16:41] LABS: Magnesium 1.8 mg/dL (1.6-2.6)
[2021-05-07 17:23] LABS: Glucose, Whole Blood 229 mg/dL (60-115)
[2021-05-07 18:22] VITALS: BP 105/55; PULSE 90; RESP 16; TEMP 37.1; O2SAT 98
--- NOTE | 2021-05-07 19:34 | PC.NURSE ---
PT REFUSING TO PROVIDE URINE SAMPLE AFTER 2 FAILED ATTEMPTS IN THE BATHROOM, SHE IS ALSO REFUSING TO HAVE A ST CATH FOR SPECIMEN
[2021-05-10 12:41] LABS: Oxcarbazepine 2.1 mcg/mL (8.0-35.0)
[2021-05-11 10:56] LABS: Levetiracetam Keppra 26.2 mcg/mL (12.0-46.0)
== END 2021-05-07 21:03 | disposition skilled nursing facility (03) ==
PROVIDERS: Nurse Practitioner Family; Emergency Provider Emergency Medicine Emergency Medical Services; PCP Hospitalist
DX: R41.82 Altered mental status, unspecified (principal); F03.90 Unspecified dementia, unspecified severity, without behavioral disturbance, psychotic disturbance, mood disturbance, and anxiety; E11.65 Type 2 diabetes mellitus with hyperglycemia; Z79.4 Long term (current) use of insulin; Z87.820 Personal history of traumatic brain injury; Z79.899 Other long term (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
CPT/HCPCS: 36415; 80048; 80076; 80177; 80185; 80339; 82947; 83735; 85025; 99283; 99284

== ENCOUNTER 2022-01-10 09:07 | Outpatient (REF) | payer MEDICAID, SELFPAY ==
[2022-01-16 11:51] LABS: HPV mRNA E6/E7 rflx Not Detected (Not Detected)
== END 2022-01-10 09:08 | disposition home or self-care (01) ==
LOC: HO.LAB 09:07
PROVIDERS: PCP Hospitalist; Visit Provider Obstetrics & Gynecology
DX: Z01.419 Encounter for gynecological examination (general) (routine) without abnormal findings (principal); Z11.51 Encounter for screening for human papillomavirus (HPV)
CPT/HCPCS: 87624; 88142

== ENCOUNTER 2022-02-14 20:36 | Emergency (ER) | payer MEDICAID, SELFPAY ==
--- NOTE | ~2022-02-14 | CT_ITS ---
EXAMINATION: NONCONTRAST HEAD CT NONCONTRAST CERVICAL SPINE CT INDICATION INFORMATION: Status post fall COMPARISON: Head and C-spine CT the 2020 TECHNIQUE: Separate noncontrast CT examinations of the head and cervical spine were performed. Coronal and sagittal images were created for each examination at the technologist workstation. This CT examination was performed using dose optimization techniques as appropriate, variously including the following: *Automated exposure control *Adjustment of mA and/or kV according to patient size (this includes techniques or standardized protocols for targeted exams where dose is matched to indication/reason for exam; i.e. extremities or head) *Use of iterative reconstruction technique DLP: 1200 mGy-cm FINDINGS: HEAD: No intra or extra-axial fluid collection, hemorrhage, or mass. No ventriculomegaly. No midline shift or herniation. Basal cisterns are patent. Gomez-white matter differentiation is maintained. No territorial encephalomalacia. No significant volume loss. There is no abnormal attenuation within the brain parenchyma. There is to be focal soft tissue swelling or small scalp hematoma overlying the left posterior parietal bone. No calvarial fracture. Hyperostosis frontalis interna. The mastoid air cells and visualized portions of the paranasal sinuses are well aerated. CERVICAL SPINE: Alignment: Straightening of the normal cervical lordosis. No subluxation. Vertebra: No acute fracture. No prevertebral soft tissue swelling. Unchanged mild superior endplate compression/Schmorl's node deformities of T2 and T3. Additional chronic appearing mild superior endplate compression/gross deformity at T4. Degenerative disc disease: Mild spondylosis at C5-C6 and C6-C7 with relatively preserved disc space heights and minimal anterior endplate proliferative change. Other findings: No cervical lymphadenopathy. Visualized major salivary glands and thyroid gland are unremarkable. Visualized lung apices are clear. CT/CT cervical spine wo con IMPRESSION: 1. No intracranial hemorrhage or calvarial fracture. 2. Left posterior scalp soft tissue swelling/small scalp hematoma. 3. No traumatic subluxation or acute cervical spine fracture.
[2022-02-14 20:52] VITALS: BP 150/90; BP 169/85; PULSE 85; PULSE 96; RESP 16; TEMP 36.4; O2SAT 99; BMI 24.3
--- NOTE | 2022-02-14 21:31 | ED_ITS ---
HPI - Fall General Chief Complaint: Fall Stated Complaint: Seizure/Fall Time Seen by Provider: 02/14/22 21:31 Source: patient Mode of arrival: EMS Limitations: no limitations History of Present Illness HPI Narrative: patient has history of hypertension TBI dementia with forgetfulness with recurrent seizures came from [facility] after having a seizure hitting his head to the wall patient complaining of slight neck pain no other deficit patient does not remember seizure no tongue bite. patient is on the Dilantin and [facility] for seizures Related Data Home Medications Medication Instructions Recorded Confirmed acetaminophen 325 mg tablet 650 mg PO Q6H PRN Fever Or Pain 03/19/21 03/19/21 atorvastatin 10 mg tablet 10 mg PO BEDTIME 03/19/21 03/19/21 benztropine 1 mg tablet 1 mg PO BID 03/19/21 03/19/21 docusate sodium 100 mg capsule 100 mg PO BID 03/19/21 03/19/21 ferrous sulfate 325 mg (65 mg 325 mg PO DAILY 03/19/21 03/19/21 iron) tablet gabapentin 600 mg tablet 600 mg PO TID 03/19/21 03/19/21 glucagon 1 mg solution for 1 mg IM DAILY PRN Hypoglycemia 03/19/21 03/20/21 injection haloperidol 10 mg tablet 10 mg PO BID 03/19/21 03/19/21 haloperidol 5 mg tablet 5 mg PO BID 03/19/21 03/19/21 ibuprofen 600 mg tablet 600 mg PO Q8H PRN Pain 03/19/21 03/19/21 insulin glargine 100 unit/mL (3 15 unit subcut BEDTIME 03/19/21 03/19/21 mL) subcutaneous pen (Lantus Solostar U-100 Insulin) levetiracetam 1,000 mg tablet 1,000 mg PO BID 03/19/21 03/19/21 levothyroxine 150 mcg tablet 150 mcg PO SUMOTUTHFRSA@62903/19/21 03/20/21 levothyroxine 25 mcg tablet 25 mcg PO SUMOTUTHFRSA@62903/19/21 03/20/21 metformin 1,000 mg tablet 1,000 mg PO BID 03/19/21 03/19/21 oxcarbazepine 150 mg tablet 150 mg PO BID 03/19/21 03/19/21 phenytoin sodium extended 200 mg 200 mg PO BID 03/19/21 03/19/21 capsule quetiapine 50 mg tablet 50 mg PO BID 03/19/21 03/19/21 sennosides 8.6 mg tablet (senna) 8.6 mg PO Q24H PRN Constipation 03/19/21 03/20/21 sodium phosphates 19 gram-7 118 ml CO DAILY PRN Constipation 03/19/21 03/19/21 gram/118 mL enema (Fleet Enema) chlorpheniramine maleate 2 mg/5 mL 4 mg PO Q4H PRN Cough 03/20/21 03/20/21 oral liquid cholecalciferol (vitamin D3) 1,250 1,250 mcg PO QMONTH 03/20/21 03/20/21 mcg (50,000 unit) capsule cholecalciferol (vitamin D3) 1,250 1,250 mcg PO QMONTH 03/20/21 03/20/21 mcg (50,000 unit) capsule insulin aspart U-100 100 unit/mL See Protocol subcut QIDACHS 03/20/21 03/20/21 subcutaneous cartridge (Novolog PenFill U-100 Insulin aspart) Previous Rx's Medication Instructions Recorded ertapenem 1 gram solution for 1 g IV DAILY #11 ea 03/22/21 injection (Invanz) insulin glargine 100 unit/mL 10 unit (0.1 mL) subcut DAILY #1 mL 03/22/21 subcutaneous solution (Lantus U-100 Insulin) Allergies Allergy/AdvReac Type Severity Reaction Status Date / Time chlorpromazine Allergy Intermediate HIVES Verified 01/10/22 09:13 [CHLORPROMAZINE] Review of Systems Review of Systems: Yes all other systems are reviewed and are negative [facility] Past Medical History Medical History Anxiety COVID-19 Cystitis Dementia Diabetes Diabetic retinopathy ESBL (extended spectrum beta-lactamase) producing bacteria infection Essential (primary) hypertension Hyperkalemia Hyperlipidemia Hypothermia Hypothyroid Leiomyoma of body of uterus Long QT syndrome Mood disorder Preglaucoma Presbyopia Seizure disorder Sepsis Subarachnoid hemorrhage following injury TBI (traumatic brain injury) Unspecified dementia with behavioral disturbance UTI (urinary tract infection) Social History Social History Household Members: Other Housing: Care Home Do you presently have visiting nurse or other home services: No (from [facility]) Alcohol intake: never Patient Tobacco Use Status: Never used Tobacco Advance Directives: Yes Advance Directives on File: Yes Advance Directives Date on File: 03/23/21 service: No Current occupational status: disabled Physical Exam Vital Signs: Vital Signs: Last Vital Signs Temp 98.4 F 02/15/22 01:39 Pulse 99 02/15/22 04:19 Resp 16 02/15/22 04:19 BP 159/82 H 02/15/22 04:19 Pulse Ox 99 02/15/22 04:19 O2 Del Method 02/15/22 04:19 BMI result Body Mass Index 24.3 Appearance: Alert. Oriented X3. No acute distress. Eyes: PERRLA, No Nystagmus ENT: Pharynx normal. Oral Mucosa moist no tongue bite Neck: Normal inspection. Neck supple. CVS: Normal heart rate and rhythm. Pulses normal. Respiratory: No respiratory distress. Equal air entry bilateral, no wheezing/rales/rhonchi Abdomen: Soft and nontender. Bowel sounds are present, no mass palpable, no CVA tenderness Skin: Skin warm and dry. Normal skin color. Normal skin turgor. Extremities: No lower extremity edema. No calf tenderness Neuro: Oriented X 3. No motor deficit. No sensory deficit.No cerebellar signs , cranial nerves II-XII intact MDM - Fall MDM Narrative Medical decision making narrative: patient breakthrough seizure CT scan of the head and C-spine negative labs are stable Dilantin level 9.4 was given her p.o. Dilantin and Keppra in the ER no more seizure activity noticed while staying in the ER will discharge the patient back to [facility] Lab Data Attestation: I reviewed the patient's lab results. Result diagrams: 02/15/22 00:15 02/15/22 00:15 Labs: Lab Results 02/15/22 02/15/22 Range/Units 00:15 00:15 WBC 6.6 (4.8-10.8) X10*3/uL RBC 3.59 L (4.20-5.50) X10*6/uL Hgb 9.9 L (12.0-16.0) g/dl Hct 31.1 L (37.0-47.0) % MCV 86.6 (80.0-98.0) fL MCH 27.6 (27.0-33.0) pg MCHC 31.8 (31.0-35.0) g/dl RDW 14.4 (11.0-16.0) % Plt Count 233 (160-400) X10*3/uL MPV 9.9 (9.4-12.3) fL Immature Gran % (Auto) 0.2 (0.0-0.4) % Neut % (Auto) 63.2 (45-73) % Lymph % (Auto) 29.2 (20-40) % [place] % (Auto) 7.0 (2-11) % Eos % (Auto) 0.2 (0-4) % Baso % (Auto) 0.2 (0-2) % Lymph # (Auto) 1.9 (1.2-4.9) X10*3/uL [place] # (Auto) 0.5 (0.1-1.2) X10*3/uL Eos # (Auto) 0.0 (0.0-0.4) X10*3/uL Baso # (Auto) 0.0 (0.0-0.2) X10*3/uL Abs Immat Gran (auto) 0.01 (0.00-0.03) X10*3/uL Absolute Neuts (auto) 4.2 (2.0-8.3) x10*3/uL Absolute Nucleated RBC 0.000 (0.0-0.012) X10*3/uL Nucleated RBC % (auto) 0.0 (0.0-0.2) /100WBC Sodium 139 (135-145) mmol/L Potassium 4.6 (3.3-5.1) mmol/L Chloride 104 (96-108) mmol/L Carbon Dioxide 25 (22-29) mmol/L Anion Gap 15 (12-20) BUN 22 H (9-16) mg/dL Creatinine 0.88 (0.5-1.4) mg/dL Estim Creat Clear Calc 78.1 Estimated GFR > 60 Random Glucose 130 H (60-115) mg/dL Calcium 9.2 D (8.4-10.2) mg/dL Total Bilirubin < 0.2 (0.0-1.0) mg/dL AST 16 (5-31) U/L ALT 14 (0-31) U/L Alkaline Phosphatase 189 H (39-117) U/L Total Protein 8.0 (6.5-8.0) g/dL Albumin 4.0 (3.5-5.0) g/dL Phenytoin 9.4 L (10.0-20.0) ug/mL Discharge Plan Discharge Clinical Impression: Epilepsy Patient Disposition: Home, Self-Care Instructions: Epilepsy (ED) Additional Instructions: continue medications as prescribed and follow with neurologist your CT scan of the head and C-spine negative Prescriptions: No Action acetaminophen 325 mg Tablet 650 mg PO Q6H PRN (Reason: Fever Or Pain) atorvastatin 10 mg Tablet 10 mg PO BEDTIME benztropine 1 mg Tablet 1 mg PO BID gabapentin 600 mg Tablet 600 mg PO TID haloperidol 5 mg Tablet 5 mg PO BID levothyroxine 25 mcg Tablet 25 mcg PO SUMOTUTHFRSA@0630 Rx Instructions: give Sat Fri Sat and Sun. Do NOT give Weds ferrous sulfate 325 mg (65 mg iron) Tablet 325 mg PO DAILY metformin 1,000 mg Tablet 1,000 mg PO BID levothyroxine 150 mcg Tablet 150 mcg PO SUMOTUTHFRSA@0630 Rx Instructions: give on Sat Fri Sat and Sun. Do NOT give on Sats haloperidol 10 mg Tablet 10 mg PO BID Fleet Enema 19-7 gram/118 mL Enema 118 ml CO DAILY PRN (Reason: Constipation) docusate sodium 100 mg Capsule 100 mg PO BID glucagon 1 mg Recon Soln 1 mg IM DAILY PRN (Reason: Hypoglycemia) ibuprofen 600 mg Tablet 600 mg PO Q8H PRN (Reason: Pain) levetiracetam 1,000 mg Tablet 1,000 mg PO BID Lantus Solostar U-100 Insulin 100 unit/mL (3 mL) Insulin Pen 15 unit SUBCUT BEDTIME Hold Instructions: Resume on 03/29/21. oxcarbazepine 150 mg Tablet 150 mg PO BID sennosides [senna] 8.6 mg Tablet 8.6 mg PO Q24H PRN (Reason: Constipation) phenytoin sodium extended 200 mg Capsule 200 mg PO BID quetiapine 50 mg Tablet 50 mg PO BID insulin aspart U-100 [Novolog PenFill U-100 Insulin] 100 unit/mL Cartridge See Protocol SUBCUT QIDACHS Protocol: Insulin Correction Scale Less than or equal to 110 ---- Give (units): 0 111 to 150 Give (units): 0 151 to 200 Give (units): 2 201 to 250 Give (units): 4 251 to 300 Give (units): 6 301 to 350 Give (units): 8 Greater than 350 Give (units): 10 Call MD if Blood Glucose > : 350 cholecalciferol (vitamin D3) 1,250 mcg (50,000 unit) Capsule 1,250 mcg PO QMONTH Rx Instructions: TAKE ON THE 17TH OF EACH MONTH cholecalciferol (vitamin D3) 1,250 mcg (50,000 unit) Capsule 1,250 mcg PO QMONTH Rx Instructions: TAKE ON THE 18TH OF EACH MONTH chlorpheniramine maleate 2 mg/5 mL Liquid 4 mg PO Q4H PRN (Reason: Cough) Lantus U-100 Insulin 100 unit/mL Solution 10 unit subcut DAILY Qty: 1 0RF ertapenem [Invanz] 1 gram recon soln 1 g IV DAILY Qty: 11 0RF
[2022-02-14 21:56] VITALS: BP 185/95; PULSE 88; RESP 16; TEMP 36.8; O2SAT 98
--- NOTE | 2022-02-14 22:45 | PC.NURSE ---
pt removed c-collar prior to MD clearing pt. pt also tearing wrist band off. pt redirected with minimal effect.
[2022-02-14 23:47] VITALS: BP 173/77; PULSE 98; RESP 20; TEMP 36.9; O2SAT 95
[2022-02-15] MEDS: levETIRAcetam 1,000 MG TABLET 1000 MG PO (00:17)
[2022-02-15] MEDS: Phenytoin Sodium Extended 100 MG CAPSULE 200 MG PO (00:17)
[2022-02-15] MEDS: Gabapentin 600 MG TABLET PO (00:17)
[2022-02-15 00:30] LABS: MANUAL DIFF FLAG NO
--- NOTE | 2022-02-15 00:30 | PC.NURSE ---
pt offered crackers/ fluids to which she refused, pt was asked if she was in pain, if she needed anything to which she stated no
--- NOTE | 2022-02-15 00:30 | PC.NURSE ---
call out to [facility] @[id number] spoke to ERYN who informed me [facility] has no ambulances and can not transport the patient to [facility]. They will try to pass it on.
--- NOTE | 2022-02-15 00:32 | PC.NURSE ---
@7412 I recieved a call from Danyelle at [facility], who tried to pass on the transfer back to [facility] for the patient. All ambulance denied her request. Danyelle booked transfer for @[id number]
[2022-02-15 00:36] LABS: Basophils Percent Auto 0.2 % (0-2); Eosinophils Percent Auto 0.2 % (0-4); Hematocrit 31.1 % (37.0-47.0); Hemoglobin 9.9 g/dl (12.0-16.0); Imm Gran Abs Auto 0.01 X10*3/uL (0.00-0.03); Imm Gran Pct Auto 0.2 % (0.0-0.4); Lymphocytes Absolute Auto 1.9 X10*3/uL (1.2-4.9); Lymphocytes Percent Auto 29.2 % (20-40); Mean Corpuscular HGB Conc 31.8 g/dl (31.0-35.0); Mean Corpuscular Hemoglobin 27.6 pg (27.0-33.0); Mean Corpuscular Volume 86.6 fL (80.0-98.0); Mean Platelet Volume 9.9 fL (9.4-12.3); Monocytes Absolute Auto 0.5 X10*3/uL (0.1-1.2); Neutrophils Absolute Auto 4.2 x10*3/uL (2.0-8.3); Neutrophils Percent Auto 63.2 % (45-73); Platelet Count 233 X10*3/uL (160-400); Red Blood Count 3.59 X10*6/uL (4.20-5.50); Red Cell Distribution Width 14.4 % (11.0-16.0); White Blood Count 6.6 X10*3/uL (4.8-10.8)
[2022-02-15 00:58] LABS: Alanine Aminotransferase 14 U/L (0-31); Alkaline Phosphatase 189 U/L (39-117); Anion Gap 15 (12-20); Aspartate Amino Transferase 16 U/L (5-31); Bilirubin Total < 0.2 mg/dL (0.0-1.0); Blood Urea Nitrogen 22 mg/dL (9-16); Calcium 9.2 mg/dL (8.4-10.2); Carbon Dioxide 25 mmol/L (22-29); Chloride 104 mmol/L (96-108); Creatinine Clr Calc Pharmacy 78.1; Estimated Glomerular Filt Rate > 60; Glucose Random 130 mg/dL (60-115); Potassium 4.6 mmol/L (3.3-5.1); Sodium 139 mmol/L (135-145)
[2022-02-15 01:39] VITALS: BP 132/74; PULSE 84; RESP 16; TEMP 36.9; O2SAT 99
[2022-02-15 02:22] LABS: Phenytoin Dilantin 9.4 ug/mL (10.0-20.0)
[2022-02-15 02:40] VITALS: BP 152/76; PULSE 94; RESP 16; O2SAT 94
[2022-02-15 04:19] VITALS: BP 159/82; PULSE 99; RESP 16; O2SAT 99
== END 2022-02-15 07:47 | disposition home or self-care (01) ==
PROVIDERS: Emergency Provider Internal Medicine; PCP Hospitalist
DX: G40.909 Epilepsy, unspecified, not intractable, without status epilepticus (principal); M54.2 Cervicalgia; I10 Essential (primary) hypertension; E11.9 Type 2 diabetes mellitus without complications; E78.5 Hyperlipidemia, unspecified; F03.90 Unspecified dementia, unspecified severity, without behavioral disturbance, psychotic disturbance, mood disturbance, and anxiety; Z87.820 Personal history of traumatic brain injury; Z79.02 Long term (current) use of antithrombotics/antiplatelets; Z79.899 Other long term (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; Z79.4 Long term (current) use of insulin
CPT/HCPCS: 36415; 70450; 72125; 80053; 80185; 85025; 99284

== ENCOUNTER → 2022-03-12 11:44 | Outpatient (BNVA) | payer MEDICAID, SELFPAY | PROVIDERS: PCP Hospitalist; Referring Provider Hospitalist; Visit Provider Physician Assistant | DX: Z01.818 Encounter for other preprocedural examination (principal); G40.909 Epilepsy, unspecified, not intractable, without status epilepticus; Z87.820 Personal history of traumatic brain injury | CPT/HCPCS: 99202 ==

== ENCOUNTER 2022-05-04 19:28 | Emergency (ER) | payer MEDICAID, SELFPAY ==
--- NOTE | ~2022-05-04 | CT_ITS ---
EXAMINATION: CT HEAD WITHOUT CONTRAST CLINICAL INFORMATION: Trauma COMPARISON: Previous dated 02/14/2022 TECHNIQUE: Contiguous axial imaging was performed from the skull base to vertex without intravenous administration of contrast. This CT examination was performed using dose optimization techniques as appropriate, variously including the following: *Automated exposure control *Adjustment of mA and/or kV according to patient size (this includes techniques or standardized protocols for targeted exams where dose is matched to indication/reason for exam; i.e. extremities or head) *Use of iterative reconstruction technique DLP: 739 mGy-cm FINDINGS: There is no midline shift. There is no mass effect. There is no hemorrhage. The basal cisterns appear patent. The posterior fossa is grossly within normal limits. There is no extra-axial collection. No evidence for fracture on the bone windows. CT/CT head/brain wo IV con IMPRESSION: No acute intracranial pathology.
--- NOTE | 2022-05-04 19:42 | ED.GENADULT ---
HPI - General Adult General Chief complaint: Seizure <Eliel Hui MD - Last Filed: 05/04/22 21:18> Stated complaint: SZ,FALL W/HEAD STRIKE @ SNF PER EMS <Eliel Hui MD - Last Filed: 05/04/22 21:18> Time Seen by Provider: 05/04/22 19:31 <Eliel Hui MD - Last Filed: 05/04/22 21:18> Source: patient, EMS, RN notes reviewed and old records reviewed <Eliel Hui MD - Last Filed: 05/04/22 21:18> History of Present Illness HPI narrative: Patient presents from [facility] with complaints of presumed seizure with a fall. Patient does not recall events. She has a history of subarachnoid hemorrhage as well as seizure disorder on Dilantin. She has been seen here in this emergency department in the past after similar episodes. She denies pain. She denies tongue biting or incontinence. The episode was not witnessed as it was change of shift. It is unknown when her last seizure was prior to today <Eliel Hui MD - Last Filed: 05/04/22 21:18> Related Data Home medications: Home Medications Medication Instructions Recorded Confirmed acetaminophen 325 mg tablet 650 mg PO Q6H PRN Fever Or Pain 03/19/21 05/04/22 benztropine 1 mg tablet 1 mg PO BID 03/19/21 05/04/22 docusate sodium 100 mg capsule 100 mg PO BID 03/19/21 05/04/22 ferrous sulfate 325 mg (65 mg 325 mg PO DAILY 03/19/21 05/04/22 iron) tablet gabapentin 600 mg tablet 600 mg PO TID 03/19/21 05/04/22 glucagon 1 mg solution for 1 mg IM DAILY PRN Hypoglycemia 03/19/21 05/04/22 injection haloperidol 10 mg tablet 10 mg PO BID 03/19/21 05/04/22 haloperidol 5 mg tablet 5 mg PO BID 03/19/21 05/04/22 ibuprofen 600 mg tablet 600 mg PO Q8H PRN Pain 03/19/21 05/04/22 levetiracetam 1,000 mg tablet 1,000 mg PO BID 03/19/21 05/04/22 levothyroxine 25 mcg tablet 125 [facility] 03/19/21 05/04/22 metformin 1,000 mg tablet 1,000 mg PO BID 03/19/21 05/04/22 oxcarbazepine 150 mg tablet 150 mg PO BID 03/19/21 05/04/22 phenytoin sodium extended 200 mg 200 mg PO BID 03/19/21 05/04/22 capsule quetiapine 50 mg tablet 50 mg PO BID 03/19/21 05/04/22 sennosides 8.6 mg tablet (senna) 8.6 mg PO Q24H PRN Constipation 03/19/21 05/04/22 sodium phosphates 19 gram-7 118 ml DE DAILY PRN Constipation 03/19/21 05/04/22 gram/118 mL enema (Fleet Enema) cholecalciferol (vitamin D3) 1,250 1,250 mcg PO QMONTH 03/20/21 05/04/22 mcg (50,000 unit) capsule cholecalciferol (vitamin D3) 1,250 1,250 mcg PO QMONTH 03/20/21 05/04/22 mcg (50,000 unit) capsule insulin aspart U-100 100 unit/mL See Protocol subcut QIDACHS 03/20/21 05/04/22 subcutaneous cartridge (Novolog PenFill U-100 Insulin aspart) atorvastatin 10 mg tablet (Lipitor) 10 mg PO DAILY 05/04/22 05/04/22 insulin glargine 100 unit/mL 15 unit subcut BID 05/04/22 05/04/22 subcutaneous solution (Lantus U-100 Insulin) <Eliel Hui MD - Last Filed: 05/04/22 21:18> Allergies/adverse reactions: Allergies Allergy/AdvReac Type Severity Reaction Status Date / Time chlorpromazine Allergy Intermediate HIVES Verified 03/12/22 11:49 [CHLORPROMAZINE] <Eliel Hui MD - Last Filed: 05/04/22 21:18> Review of Systems Constitutional: Comments: No fevers chills or recent illness <Eliel Hui MD - Last Filed: 05/04/22 21:18> Eyes: Comments: No photophobia <Eliel Hui MD - Last Filed: 05/04/22 21:18> ENT: Comments: Denies tongue biting <Eliel Hui MD - Last Filed: 05/04/22 21:18> Cardiovascular: Comments: No chest pain <Eliel Hui MD - Last Filed: 05/04/22 21:18> Respiratory: Comments: No shortness of breath or recent cough <Eliel Hui MD - Last Filed: 05/04/22 21:18> Gastrointestinal: Comments: No abdominal pain or nausea <Eliel Hui MD - Last Filed: 05/04/22 21:18> Musculoskeletal: Comments: No extremity pain or injury <Eliel Hui MD - Last Filed: 05/04/22 21:18> Integumentary/Breasts: Comments: No lacerations or abrasions <Eliel Hui MD - Last Filed: 05/04/22 21:18> Neurologic: Comments: Denies headache focal weakness <Eliel Hiu MD - Last Filed: 05/04/22 21:18> PMFSH Past Medical History Medical History: Medical History Anxiety COVID-19 Cystitis Dementia Diabetes Diabetic retinopathy ESBL (extended spectrum beta-lactamase) producing bacteria infection Essential (primary) hypertension Hyperkalemia Hyperlipidemia Hypothermia Hypothyroid Leiomyoma of body of uterus Long QT syndrome Mood disorder Preglaucoma Presbyopia Seizure disorder Sepsis Subarachnoid hemorrhage following injury TBI (traumatic brain injury) Unspecified dementia with behavioral disturbance UTI (urinary tract infection) <Eliel Hui MD - Last Filed: 05/04/22 21:18> Family History Family History: Family History (Updated 03/12/22 @ 12:23 by Zenobia Krishnamurthy PA-C) Mother Breast cancer <Eliel Hui MD - Last Filed: 05/04/22 21:18> Social History Social History: Social History Household Members: Other Housing: [facility] Do you presently have visiting nurse or other home services: No (from [facility]) Alcohol intake: never Patient Tobacco Use Status: Never used Tobacco Advance Directives: Yes Advance Directives on File: Yes Advance Directives Date on File: 03/23/21 service: No Current occupational status: disabled <Eliel Hui MD - Last Filed: 05/04/22 21:18> Physical Exam ED Vital Signs: Vital Signs - 24 hr 05/04/22 19:45 05/04/22 19:54 05/04/22 19:58 Temperature 98.5 F Pulse Rate 100 101 H Respiratory Rate 20 16 Blood Pressure 176/98 H 176/98 H Pulse Oximetry 100 100 Oxygen Delivery Method Room Air Room Air 05/05/22 00:54 05/05/22 02:41 05/05/22 04:45 Temperature 98.6 F 98.5 F 98.4 F Pulse Rate 90 93 86 Respiratory Rate 19 16 17 Blood Pressure 184/86 H 177/92 H 147/77 H Pulse Oximetry 93 97 95 Oxygen Delivery Method Room Air Room Air Room Air 05/05/22 06:23 Temperature 98.6 F Pulse Rate 85 Respiratory Rate 17 Blood Pressure 174/94 H Pulse Oximetry 97 Oxygen Delivery Method Room Air BMI result Body Mass Index 31.4 <Eliel Hui MD - Last Filed: 05/04/22 21:18> Vital Signs - 24 hr 05/04/22 19:45 05/04/22 19:54 05/04/22 19:58 Temperature 98.5 F Pulse Rate 100 101 H Respiratory Rate 20 16 Blood Pressure 176/98 H 176/98 H Pulse Oximetry 100 100 Oxygen Delivery Method Room Air Room Air 05/05/22 00:54 05/05/22 02:41 05/05/22 04:45 Temperature 98.6 F 98.5 F 98.4 F Pulse Rate 90 93 86 Respiratory Rate 19 16 17 Blood Pressure 184/86 H 177/92 H 147/77 H Pulse Oximetry 93 97 95 Oxygen Delivery Method Room Air Room Air Room Air 05/05/22 06:23 Temperature 98.6 F Pulse Rate 85 Respiratory Rate 17 Blood Pressure 174/94 H Pulse Oximetry 97 Oxygen Delivery Method Room Air BMI result Body Mass Index 31.4 <MARIA R Calderon - Last Filed: 05/05/22 09:19> Const Other: Awake and alert in no acute distress. Vital signs stable <Eliel Hui MD - Last Filed: 05/04/22 21:18> HENMT Other: Normocephalic atraumatic. Scalp is nontender. No tongue biting her abrasions <Eliel Hui MD - Last Filed: 05/04/22 21:18> Eyes Other: Pupils approximately 3 mm and equal round reactive to light. Extraocular muscles are intact. EMS reported mildly uneven pupils but on arrival here pupils are as documented <Eliel Hui MD - Last Filed: 05/04/22 21:18> Neck Other: Initially arrived in collar. C-spine is nontender with full range of motion. C-collar removed. No pain on axial load <Eliel Hui MD - Last Filed: 05/04/22 21:18> Resp Other: Clear and equal bilaterally <Eliel Hui MD - Last Filed: 05/04/22 21:18> Cardio Other: Regular rate and rhythm without murmurs rubs or gallops <Eliel Hui MD - Last Filed: 05/04/22 21:18> GI Other: Soft nontender nondistended <Eliel Hui MD - Last Filed: 05/04/22 21:18> Other: No urinary incontinence <Eliel Hui MD - Last Filed: 05/04/22 21:18> Skin Other: Warm and dry without abrasions <Eliel Hui MD - Last Filed: 05/04/22 21:18> Neuro Other: Moves all 4 extremities without difficulty <Eliel Hui MD - Last Filed: 05/04/22 21:18> Extrem Other: No extremity trauma <Eliel Hui MD - Last Filed: 05/04/22 21:18> Course Course Course Narrative: Seizure with fall Intracranial hemorrhage Subarachnoid hemorrhage CT scan and labs ordered including Dilantin level 21:17. CT scan is unremarkable. Patient declining labs after 1 failed attempt. Given that she is stable and followed closely as an outpatient, I think this is reasonable. Stable for discharge home with a final diagnosis of seizure with history of seizure disorder <Eliel Hui MD - Last Filed: 05/04/22 21:18> Reevaluation(s) Reevaluation #1: Patient in physician observation, pending discharge back to assisted living facility. Will continue to monitor. Uneventful night. Vital stable. <MARIA R Calderon - Last Filed: 05/05/22 09:19> Discharge Plan Discharge Clinical Impression: Epileptic seizure <Eliel Hui MD - Last Filed: 05/04/22 21:18> Patient Disposition: Xfer SNF <Eliel Hui MD - Last Filed: 05/04/22 21:18> Instructions: Epilepsy (ED) <Eilel Hui MD - Last Filed: 05/04/22 21:18> Prescriptions: No [facility] acetaminophen 325 mg Tablet 650 mg PO Q6H PRN (Reason: Fever Or Pain) benztropine 1 mg Tablet 1 mg PO BID gabapentin 600 mg Tablet 600 mg PO TID haloperidol 5 mg Tablet 5 mg PO BID levothyroxine 25 mcg Tablet 125 mcg PO BRAULIO@0630 Rx Instructions: give Sat Fri Sat and Sun. Do NOT give ferrous sulfate 325 mg (65 mg iron) Tablet 325 mg PO DAILY metformin 1,000 mg Tablet 1,000 mg PO BID haloperidol 10 mg Tablet 10 mg PO BID Fleet Enema 19-7 gram/118 mL Enema 118 ml DE DAILY PRN (Reason: Constipation) docusate sodium 100 mg Capsule 100 mg PO BID glucagon 1 mg Recon Soln 1 mg IM DAILY PRN (Reason: Hypoglycemia) ibuprofen 600 mg Tablet 600 mg PO Q8H PRN (Reason: Pain) levetiracetam 1,000 mg Tablet 1,000 mg PO BID oxcarbazepine 150 mg Tablet 150 mg PO BID sennosides [senna] 8.6 mg Tablet 8.6 mg PO Q24H PRN (Reason: Constipation) phenytoin sodium extended 200 mg Capsule 200 mg PO BID quetiapine 50 mg Tablet 50 mg PO BID insulin aspart U-100 [Novolog PenFill U-100 Insulin] 100 unit/mL Cartridge See Protocol SUBCUT QIDACHS Protocol: Insulin Correction Scale Less than or equal to 110 ---- Give (units): 0 111 to 150 Give (units): 0 151 to 200 Give (units): 2 201 to 250 Give (units): 4 251 to 300 Give (units): 6 301 to 350 Give (units): 8 Greater than 350 Give (units): 10 Call if Blood Glucose > : 350 cholecalciferol (vitamin D3) 1,250 mcg (50,000 unit) Capsule 1,250 mcg PO QMONTH Rx Instructions: TAKE ON THE 17 OF EACH MONTH cholecalciferol (vitamin D3) 1,250 mcg (50,000 unit) Capsule 1,250 mcg PO QMONTH Rx Instructions: TAKE ON THE OF EACH MONTH insulin glargine [Lantus U-100 Insulin] 100 unit/mL solution 15 unit subcut BID atorvastatin [Lipitor] 10 mg Tablet 10 mg PO DAILY <Eliel Hui MD - Last Filed: 05/04/22 21:18>
[2022-05-04 19:45] VITALS: BP 140/90; BP 176/98; RESP 20; TEMP 36.9; BMI 31.4
[2022-05-04 19:54] VITALS: BP 176/98; PULSE 100; RESP 16; O2SAT 100
[2022-05-04 19:58] VITALS: PULSE 101; O2SAT 100
--- NOTE | 2022-05-04 20:29 | PC.NURSE ---
1 unsuccessful attempt made to draw blood and Patient is now refusing blood draw and IV at this time.
--- NOTE | 2022-05-04 21:50 | PC.NURSE ---
Spoke with Jyoti ZHOU for report. Unable to obtain BLS until tomorrow sometime.
[2022-05-05 00:54] VITALS: BP 184/86; PULSE 90; RESP 19; TEMP 37; O2SAT 93
--- NOTE | 2022-05-05 01:52 | PC.NURSE ---
Patient up OOB looking for her room to go to sleep. Patient brought to BR then reorientated to ED. She does not remember having a seizure. Patient swearing at staff to leave her alone. Able to redirect after several minutes. Declining food/drink. Awaiting BLS ride home in the morning
[2022-05-05 02:41] VITALS: BP 177/92; PULSE 93; RESP 16; TEMP 36.9; O2SAT 97
[2022-05-05 04:45] VITALS: BP 147/77; PULSE 86; RESP 17; TEMP 36.9; O2SAT 95
[2022-05-05 06:23] VITALS: BP 174/94; PULSE 85; RESP 17; TEMP 37; O2SAT 97
--- NOTE | 2022-05-05 08:06 | PC.NURSE ---
pt ambulatory to bathroom w smooth, steady gait. watching tv, calm and cooperative. no seizure activity noted.
--- NOTE | 2022-05-05 13:17 | PC.NURSE ---
Pt up and walking around with this RN. Easily redirectable. Pt offered snacks and drinks, pt respectfully declined stating no thank you, I'm not hungry right now . Pt now resting in chair in her room. Awaiting transport back to [facility]
== END 2022-05-05 13:23 | disposition skilled nursing facility (03) ==
PROVIDERS: Emergency Provider Emergency Medicine
DX: G40.909 Epilepsy, unspecified, not intractable, without status epilepticus (principal); E11.9 Type 2 diabetes mellitus without complications; I10 Essential (primary) hypertension; E78.5 Hyperlipidemia, unspecified; Z87.820 Personal history of traumatic brain injury; Z79.4 Long term (current) use of insulin; Z79.02 Long term (current) use of antithrombotics/antiplatelets; Z79.899 Other long term (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
CPT/HCPCS: 70450; 99284

== ENCOUNTER 2022-07-17 14:06 | Emergency (ER) | payer MEDICAID, SELFPAY ==
--- NOTE | ~2022-07-17 | CT_ITS ---
EXAMINATION: NONCONTRAST HEAD CT NONCONTRAST CERVICAL SPINE CT INDICATION INFORMATION: Seizure and head strike COMPARISON: Head CT 05/04/2022, CT cervical spine 02/14/2022 TECHNIQUE: Separate noncontrast CT examinations of the head and cervical spine were performed. Coronal and sagittal images were created for each examination at the technologist workstation. This CT examination was performed using dose optimization techniques as appropriate, variously including the following: *Automated exposure control *Adjustment of mA and/or kV according to patient size (this includes techniques or standardized protocols for targeted exams where dose is matched to indication/reason for exam; i.e. extremities or head) *Use of iterative reconstruction technique DLP: 1290 mGy-cm FINDINGS: HEAD: No intra or extra-axial fluid collection, hemorrhage, or mass. No ventriculomegaly. No midline shift or herniation. Basal cisterns are patent. Gomez-white matter differentiation is maintained. No territorial encephalomalacia. No significant volume loss. There is no abnormal attenuation within the brain parenchyma. Mild left posterior scalp soft tissue thickening versus small hematoma, similar to prior 05/04/2022. No calvarial fracture. Hyperostosis frontalis interna. Paranasal sinuses and mastoid air cells are normally aerated. Septation through the left maxillary antrum noted. CERVICAL SPINE: Alignment: Straightening and slight reversal of the normal cervical lordosis. No subluxation. Vertebra: No acute fracture. No prevertebral soft tissue swelling. Mild superior endplate compression/Schmorl's nodes deformities at T2 and T3, chronic in appearance and unchanged. Degenerative disc disease: Mild cervical spondylosis at C5-C6 and C6-C7 with minimal disc height loss and mild endplate proliferative change. Other findings: Thyroid gland is atrophic or absent. Visualized lung apices grossly clear. No cervical lymphadenopathy or mass identified. CT/CT cervical spine wo IV con IMPRESSION: 1. No intracranial hemorrhage, calvarial fracture, or other acute intracranial abnormality. 2. No traumatic subluxation or acute cervical spine fracture.
--- NOTE | ~2022-07-17 | XR_ITS ---
EXAMINATION: XR CHEST CLINICAL INFORMATION: Seizure COMPARISON: Chest x-ray 03/31/2021 TECHNIQUE: Frontal view of the chest was obtained. FINDINGS: The lungs are clear. No airspace consolidation, pleural effusion, or pneumothorax. The cardiomediastinal silhouette is within normal limits. No acute osseous injury. XR/XR chest 1V IMPRESSION: No acute pulmonary disease.
--- NOTE | 2022-07-17 14:12 | ECG_ITS ---
Test Reason : SEIZURE Blood Pressure : / mmHG Vent. Rate : 096 BPM Atrial Rate : 096 BPM P-R Int : 180 ms QRS Dur : 074 ms QT Int : 360 ms P-R-T Axes : 075 032 042 degrees QTc Int : 454 ms Normal sinus rhythm Possible Left atrial enlargement Borderline ECG When compared with ECG of 31-MAR-2021 14:06, QRS duration has decreased Nonspecific T wave abnormality, improved in Inferior leads Nonspecific T wave abnormality no longer evident in Lateral leads Heart rate has increased Referred By: Breanna Aguilar Electronically Signed By:ZONIA MOSELEY MD
--- NOTE | 2022-07-17 14:16 | ED_ITS ---
HPI - Seizure General Chief Complaint: Seizure <MARIA R Lewis Last Filed: 07/17/22 17:32> Stated Complaint: SEIZURE X 2 <MARIA R Lewis Last Filed: 07/17/22 17:32> Time Seen by Provider: 07/17/22 14:10 <MARIA R Lewis Last Filed: 07/17/22 17:32> Source: patient and EMS <MARIA R Lewis Last Filed: 07/17/22 17:32> Mode of arrival: EMS <MARIA R Lewis Last Filed: 07/17/22 17:32> History of Present Illness HPI Narrative: 51-year-old female with a past medical history of subarachnoid hemorrhage, dementia, seizure disorder on Dilantin, Keppra, and Gabapentin, mood disorder, anxiety, diabetes, HTN, HLD, hypothyroid, presenting to the ED via EMS from [facility] for two seizures today. First seizure around 09:00AM witnessed with fall in the hallway, 2nd seizure around 1:00pm unwitnessed, patient was found on the ground next to her bed, reportedly postictal after both incidents. Per EMS patient has been refusing lab draws for antiepileptic levels x2 weeks. Per EMS patient has been compliant with her medications. No reported fever/chills. Patient offers no complaints at present <MARIA R Lewis Last Filed: 07/17/22 17:32> MD complaint: seizure <MARIA R Lewis Last Filed: 07/17/22 17:32> Onset (ago): hour(s) <MARIA R Lewis Last Filed: 07/17/22 17:32> Seizure History: Yes <MARIA R Lewis Last Filed: 07/17/22 17:32> Related Data Home Medications: Home Medications Medication Instructions Recorded Confirmed acetaminophen 325 mg tablet 650 mg PO Q6H PRN Fever Or Pain 03/19/21 05/04/22 benztropine 1 mg tablet 1 mg PO BID 03/19/21 05/04/22 docusate sodium 100 mg capsule 100 mg PO BID 03/19/21 05/04/22 ferrous sulfate 325 mg (65 mg 325 mg PO DAILY 03/19/21 05/04/22 iron) tablet gabapentin 600 mg tablet 600 mg PO TID 03/19/21 05/04/22 glucagon 1 mg solution for 1 mg IM DAILY PRN Hypoglycemia 03/19/21 05/04/22 injection haloperidol 10 mg tablet 10 mg PO BID 03/19/21 05/04/22 haloperidol 5 mg tablet 5 mg PO BID 03/19/21 05/04/22 ibuprofen 600 mg tablet 600 mg PO Q8H PRN Pain 03/19/21 05/04/22 levetiracetam 1,000 mg tablet 1,000 mg PO BID 03/19/21 05/04/22 levothyroxine 25 mcg tablet 125 mcg PO SUMOTUTHFRSA@0630 03/19/21 05/04/22 metformin 1,000 mg tablet 1,000 mg PO BID 03/19/21 05/04/22 oxcarbazepine 150 mg tablet 150 mg PO BID 03/19/21 05/04/22 phenytoin sodium extended 200 mg 200 mg PO BID 03/19/21 05/04/22 capsule quetiapine 50 mg tablet 50 mg PO BID 03/19/21 05/04/22 sennosides 8.6 mg tablet (senna) 8.6 mg PO Q24H PRN Constipation 03/19/21 05/04/22 sodium phosphates 19 gram-7 118 ml VT DAILY PRN Constipation 03/19/21 05/04/22 gram/118 mL enema (Fleet Enema) cholecalciferol (vitamin D3) 1,250 1,250 mcg PO QMONTH 03/20/21 05/04/22 mcg (50,000 unit) capsule cholecalciferol (vitamin D3) 1,250 1,250 mcg PO QMONTH 03/20/21 05/04/22 mcg (50,000 unit) capsule insulin aspart U-100 100 unit/mL See Protocol subcut QIDACHS 03/20/21 05/04/22 subcutaneous cartridge (Novolog PenFill U-100 Insulin aspart) atorvastatin 10 mg tablet (Lipitor) 10 mg PO DAILY 05/04/22 05/04/22 insulin glargine 100 unit/mL 15 unit subcut BID 05/04/22 05/04/22 subcutaneous solution (Lantus U-100 Insulin) <MARIA R Lewis - Last Filed: 07/17/22 17:32> Allergies/Adverse Reactions: Allergies Allergy/AdvReac Type Severity Reaction Status Date / Time chlorpromazine Allergy Intermediate HIVES Verified 03/12/22 11:49 [CHLORPROMAZINE] <MARIA R Lewis - Last Filed: 07/17/22 17:32> Review of Systems Review of Systems: Constitutional: No Fever ENT/Mouth: No Ear Pain, No sore throat Cardiovascular: No Chest Pain, No SOB Respiratory: No Cough, No Dyspnea Gastrointestinal: No Nausea, No Vomiting, No Diarrhea, No Constipation, No Abdominal pain Genitourinary: No Dysuria, No Flank Pain Musculoskeletal: No joint pain, No Myalgias, No Joint Swelling Skin: No Skin Lesions, No rash Neuro: +seizure ROS mildly limited due to patients baseline mental status/postictal state <MARIA R Lewis - Last Filed: 07/17/22 17:32> Yes all other systems are reviewed and are negative <MARIA R Lewis - Last Filed: 07/17/22 17:32> Constitutional: Constitutional: Reports as per HPI <MARIA R Lewis - Last Filed: 07/17/22 17:32> [facility], [facility] Past Medical History Attestation statement: The following information was validated with the patient. <MARIA R Lewis - Last Filed: 07/17/22 17:32> Medical History: Medical History Anxiety COVID-19 Cystitis Dementia Diabetes Diabetic retinopathy ESBL (extended spectrum beta-lactamase) producing bacteria infection Essential (primary) hypertension Hyperkalemia Hyperlipidemia Hypothermia Hypothyroid Leiomyoma of body of uterus Long QT syndrome Mood disorder Preglaucoma Presbyopia Seizure disorder Sepsis Subarachnoid hemorrhage following injury TBI (traumatic brain injury) Unspecified dementia with behavioral disturbance UTI (urinary tract infection) <MARIA R Lewis - Last Filed: 07/17/22 17:32> Family History Family History: Family History Mother Breast cancer <MARIA R Lewis Last Filed: 07/17/22 17:32> Social History Social History: Social History Household Members: Other Housing: [facility] Do you presently have visiting nurse or other home services: No (from [facility]) Alcohol intake: never Patient Tobacco Use Status: Never used Tobacco Advance Directives: Yes Advance Directives on File: Yes Advance Directives Date on File: 03/23/21 service: No Current occupational status: disabled <MARIA R Lewis - Last Filed: 07/17/22 17:32> Physical Exam Vital Signs: Vital Signs: Last Vital Signs Temp 98.6 F 07/17/22 14:26 Pulse 99 07/17/22 14:26 Resp 14 07/17/22 14:26 BP 141/92 H 07/17/22 14:26 Pulse Ox 100 07/17/22 14:26 O2 Del Method 07/17/22 14:26 BMI result Body Mass Index 33.3 <MARIA R Lewis - Last Filed: 07/17/22 17:32> Vital Signs: Last Vital Signs Temp 98.6 F 07/17/22 14:26 Pulse 99 07/17/22 14:26 Resp 14 07/17/22 14:26 BP 141/92 H 07/17/22 14:26 Pulse Ox 100 07/17/22 14:26 O2 Del Method 07/17/22 14:26 BMI result Body Mass Index 33.3 <Adelita Khan NP - Last Filed: 07/17/22 19:41> Const: Other: appears postictal <MARIA R Lewis - Last Filed: 07/17/22 17:32> General: cooperative, no acute distress and lethargic <MARIA R Lewis - Last Filed: 07/17/22 17:32> Orientation/consciousness: oriented to person, oriented to place and lethargic <MARIA R Lewis - Last Filed: 07/17/22 17:32> HEENT: Head: Yes normal to inspection, Yes atraumatic, No Austin's sign, No palpable skull fracture and No raccoon eyes <MARIA R Lewis - Last Filed: 07/17/22 17:32> Ears: hearing grossly normal bilaterally <MARIA R Lewis - Last Filed: 07/17/22 17:32> General nose exam: Normal external nose present <Breanna Renarenny PA - Last Filed: 07/17/22 17:32> Face and sinus: Yes normal facial exam <Breanna Poulrent PA - Last Filed: 07/17/22 17:32> Throat: Yes posterior oropharynx normal <Breanna Poulrent PA - Last Filed: 07/17/22 17:32> Eyes: General: appearance normal, both eyes and all related structures <Breanna Renarent PA - Last Filed: 07/17/22 17:32> Pupils: Equal, round and reactive pupils present <Breanna Poulrent PA - Last Filed: 07/17/22 17:32> EOM: EOMs intact bilaterally <Breanna Poulrent PA - Last Filed: 07/17/22 17:32> Neck: Other: no midline cervical spinous tenderness <Breanna Renarent PA - Last Filed: 07/17/22 17:32> Neck: Yes normal visual inspection and Yes no meningeal signs <Breanna Renarenny PA - Last Filed: 07/17/22 17:32> Resp: Effort & Inspection: normal respiratory effort and no respiratory distress <Breanna Renarenny PA - Last Filed: 07/17/22 17:32> Auscultation: clear to auscultation bilaterally, no crackles, no rales, no rhonchi and no wheezes <Breanna Renarenny PA - Last Filed: 07/17/22 17:32> Cardio: Rate: regular rate <Breanna Renarenny PA - Last Filed: 07/17/22 17:32> Heart sounds: S1 normal heart sound present and S2 normal heart sound present <Breanna Poulrent PA - Last Filed: 07/17/22 17:32> GI: Inspection: Yes normal to inspection <Breanna Renarenny PA - Last Filed: 07/17/22 17:32> Palpation (GI): Soft to palpation, nontender, no guarding and not rigid <Breanna Poulrenny PA - Last Filed: 07/17/22 17:32> Back/Spine/Pelvis: Other: No midline thoracic/lumbar spinous tenderness/step-off <Breanna Pouliot, PA - Last Filed: 07/17/22 17:32> Skin: Rashes: no rashes <MARIA R Lewis - Last Filed: 07/17/22 17:32> Wounds: no wounds <MARIA R Lewis - Last Filed: 07/17/22 17:32> Neuro: General: oriented to person, oriented to place, tone normal, moves all extremities, no meningeal signs, no focal motor deficits and CN's II-XI intact bilaterally <MARIA R Lewis - Last Filed: 07/17/22 17:32> Cranial nerves: Yes Equal, round and reactive pupils present <MARIA R Lewis - Last Filed: 07/17/22 17:32> Extrem: General: Yes normal to inspection, Yes no pedal edema and Yes no calf tenderness <MARIA R Lewis - Last Filed: 07/17/22 17:32> Course Course Course Narrative: - Unable to get IV access on patient after multiple attempts including Dr. Webster attempting. will give p.o. medications - Dilantin level WNL. COVID-19/influenza negative XR chest 1V IMPRESSION: No acute pulmonary disease. ? CT head/brain wo IV con /CT cervical spine wo IV con IMPRESSION: 1.? No intracranial hemorrhage, calvarial fracture, or other acute intracranial abnormality. 2.? No traumatic subluxation or acute cervical spine fracture. -1728-- CBC hemolyzed. Initial troponin 9.2 would like to obtain 3 hour repeat, however patient currently refusing all labs, thus unlikely to obtain CBC and repeat troponin. Will wait on urine and anticipate transfer back to facility ? -1800-- ED care transferred to Adelita be pending UA and anticipated transfer back to [facility] <MARIA R Lewis - Last Filed: 07/17/22 17:32> - Unable to get IV access on patient after multiple attempts including Dr. Webster attempting. will give p.o. medications - Dilantin level WNL. COVID-19/influenza negative XR chest 1V IMPRESSION: No acute pulmonary disease. ? CT head/brain wo IV con /CT cervical spine wo IV con IMPRESSION: 1.? No intracranial hemorrhage, calvarial fracture, or other acute intracranial abnormality. 2.? No traumatic subluxation or acute cervical spine fracture. -1728-- CBC hemolyzed. Initial troponin 9.2 would like to obtain 3 hour repeat, however patient currently refusing all labs, thus unlikely to obtain CBC and repeat troponin. Will wait on urine and anticipate transfer back to facility ? -1800-- ED care transferred to [employer] Adelita be pending UA and anticipated transfer back to [facility] 19:40 patient adamantly refusing to give urinalysis. Plan of care is to discharge back to [facility] facility. <Adelita Khan NP - Last Filed: 07/17/22 19:41> Medications Administered Discontinued Medications Generic Name Dose Route Start Last Admin Trade Name Freq PRN Reason Stop Dose Admin Levetiracetam 1,000 mg 07/17/22 15:47 07/17/22 16:12 Levetiracetam 1,000 Mg Tablet PO 07/17/22 15:48 1,000 mg ONCE ONE Administration Lorazepam 0.5 mg 07/17/22 14:24 07/17/22 14:53 Lorazepam 0.5 Mg Tablet PO 07/17/22 14:25 0.5 mg ONCE ONE Administration <MARIA R Lewis - Last Filed: 07/17/22 17:32> Medications Administered Discontinued Medications Generic Name Dose Route Start Last Admin Trade Name Freq PRN Reason Stop Dose Admin Levetiracetam 1,000 mg 07/17/22 15:47 07/17/22 16:12 Levetiracetam 1,000 Mg Tablet PO 07/17/22 15:48 1,000 mg ONCE ONE Administration Lorazepam 0.5 mg 07/17/22 14:24 07/17/22 14:53 Lorazepam 0.5 Mg Tablet PO 07/17/22 14:25 0.5 mg ONCE ONE Administration <Adelita Khan NP - Last Filed: 07/17/22 19:41> MDM - Seizure MDM Narrative Medical decision making narrative: 51-year-old female with a past medical history of subarachnoid hemorrhag e, dementia, seizure disorder on Dilantin, Keppra, and Gabapentin, mood disorder, anxiety, diabetes, HTN, HLD, hypothyroid, presenting to the ED via EMS from [facility] for two seizures today. on exam vital signs stable, NAD, appears postictal/lethargic, alert A&O x2, concern for medication noncompliance vs metabolic/infectious etiologies vs ICH plan: EKG, labs, UA, CXR, head/ C-spine CT, IV Ativan and a loading dose of Keppra <MARIA R Lewis - Last Filed: 07/17/22 17:32> Differential Diagnosis Differential diagnosis: Likely generalized seizure and epileptic seizure <MARIA R Lewis - Last Filed: 07/17/22 17:32> Medical Records Attestation: I reviewed the patient's medical records. <MARIA R Lewis - Last Filed: 07/17/22 17:32> Lab Data Attestation: I reviewed the patient's lab results. <MARIA R Lewis - Last Filed: 07/17/22 17:32> Result diagrams: : 07/17/22 15:41 07/17/22 15:41 <MARIA R Lewis - Last Filed: 07/17/22 17:32> Labs: Lab Results 07/17/22 07/17/22 07/17/22 Range/Units 14:30 14:30 15:41 Sodium 135 (135-145) mmol/L Potassium 5.0 (3.3-5.1) mmol/L Chloride 97 (96-108) mmol/L Carbon Dioxide 27 (22-29) mmol/L Anion Gap 16 (12-20) BUN 20 H (9-16) mg/dL Creatinine 1.04 (0.5-1.4) mg/dL Estim Creat Clear Calc 80.6 Estimated GFR 56 Random Glucose 105 (60-115) mg/dL Calcium 10.6 H D (8.4-10.2) mg/dL Magnesium 1.7 (1.6-2.6) mg/dL Total Bilirubin 0.2 (0.0-1.0) mg/dL Direct Bilirubin < 0.2 (0.0-0.5) mg/dL AST 19 (5-31) U/L ALT 19 (0-31) U/L Alkaline Phosphatase 227 H (39-117) U/L Troponin I High Sens (<3.5-17.0) ng/L Total Protein 8.7 H (6.5-8.0) g/dL Albumin 4.3 (3.5-5.0) g/dL Phenytoin (10.0-20.0) ug/mL COVID-19 (ELIZ) Negative (Negative) COVID-19 Clin Com See Note Influenza Type A (BC) Negative (Negative) Influenza Type B (BC) Negative (Negative) Influenza A & B Note See Note 07/17/22 07/17/22 Range/Units 15:41 15:41 Sodium (135-145) mmol/L Potassium (3.3-5.1) mmol/L Chloride (96-108) mmol/L Carbon Dioxide (22-29) mmol/L Anion Gap (12-20) BUN (9-16) mg/dL Creatinine (0.5-1.4) mg/dL Estim Creat Clear Calc Estimated GFR Random Glucose (60-115) mg/dL Calcium (8.4-10.2) mg/dL Magnesium (1.6-2.6) mg/dL Total Bilirubin (0.0-1.0) mg/dL Direct Bilirubin (0.0-0.5) mg/dL AST (5-31) U/L ALT (0-31) U/L Alkaline Phosphatase (39-117) U/L Troponin I High Sens 9.2 (<3.5-17.0) ng/L Total Protein (6.5-8.0) g/dL Albumin (3.5-5.0) g/dL Phenytoin 15.0 (10.0-20.0) ug/mL COVID-19 (ELIZ) (Negative) COVID-19 Clin Com Influenza Type A (BC) (Negative) Influenza Type B (BC) (Negative) Influenza A & B Note <MARIA R Lewis - Last Filed: 07/17/22 17:32> Lab Results 07/17/22 07/17/22 07/17/22 Range/Units 14:30 14:30 15:41 Sodium 135 (135-145) mmol/L Potassium 5.0 (3.3-5.1) mmol/L Chloride 97 (96-108) mmol/L Carbon Dioxide 27 (22-29) mmol/L Anion Gap 16 (12-20) BUN 20 H (9-16) mg/dL Creatinine 1.04 (0.5-1.4) mg/dL Estim Creat Clear Calc 80.6 Estimated GFR 56 Random Glucose 105 (60-115) mg/dL Calcium 10.6 H D (8.4-10.2) mg/dL Magnesium 1.7 (1.6-2.6) mg/dL Total Bilirubin 0.2 (0.0-1.0) mg/dL Direct Bilirubin < 0.2 (0.0-0.5) mg/dL AST 19 (5-31) U/L ALT 19 (0-31) U/L Alkaline Phosphatase 227 H (39-117) U/L Troponin I High Sens (<3.5-17.0) ng/L Total Protein 8.7 H (6.5-8.0) g/dL Albumin 4.3 (3.5-5.0) g/dL Phenytoin (10.0-20.0) ug/mL COVID-19 (ELIZ) Negative (Negative) COVID-19 Clin Com See Note Influenza Type A (BC) Negative (Negative) Influenza Type B (BC) Negative (Negative) Influenza A & B Note See Note 07/17/22 07/17/22 Range/Units 15:41 15:41 Sodium (135-145) mmol/L Potassium (3.3-5.1) mmol/L Chloride (96-108) mmol/L Carbon Dioxide (22-29) mmol/L Anion Gap (12-20) BUN (9-16) mg/dL Creatinine (0.5-1.4) mg/dL Estim Creat Clear Calc Estimated GFR Random Glucose (60-115) mg/dL Calcium (8.4-10.2) mg/dL Magnesium (1.6-2.6) mg/dL Total Bilirubin (0.0-1.0) mg/dL Direct Bilirubin (0.0-0.5) mg/dL AST (5-31) U/L ALT (0-31) U/L Alkaline Phosphatase (39-117) U/L Troponin I High Sens 9.2 (<3.5-17.0) ng/L Total Protein (6.5-8.0) g/dL Albumin (3.5-5.0) g/dL Phenytoin 15.0 (10.0-20.0) ug/mL COVID-19 (ELIZ) (Negative) COVID-19 Clin Com Influenza Type A (BC) (Negative) Influenza Type B (BC) (Negative) Influenza A & B Note <Adelita Khan NP - Last Filed: 07/17/22 19:41> Discharge Plan Discharge Clinical Impression: Epileptic seizure <MARIA R Lewis - Last Filed: 07/17/22 17:32> Patient Disposition: Xfer LTC <MARIA R Lewis - Last Filed: 07/17/22 17:32> Transfer Details: [facility] <MARIA R Lewis - Last Filed: 07/17/22 17:32> [facility] <Adelita Khan NP - Last Filed: 07/17/22 19:41> Instructions: Recurrent Seizures in Adults (ED) <MARIA R Lewis - Last Filed: 07/17/22 17:32> Additional Instructions: continue taking your home prescribed medications. Please have close follow-up with her doctor. You refused urinalysis. It is important you take your anti epileptic meds. If symptoms persist, recur return to the ED <MARIA R Lewis - Last Filed: 07/17/22 17:32> Prescriptions: No Action acetaminophen 325 mg Tablet 650 mg PO Q6H PRN (Reason: Fever Or Pain) benztropine 1 mg Tablet 1 mg PO BID gabapentin 600 mg Tablet 600 mg PO TID haloperidol 5 mg Tablet 5 mg PO BID levothyroxine 25 mcg Tablet 125 mcg PO [facility] Rx Instructions: give Sat Fri Sat and Sun. Do NOT give ferrous sulfate 325 mg (65 mg iron) Tablet 325 mg PO DAILY metformin 1,000 mg Tablet 1,000 mg PO BID haloperidol 10 mg Tablet 10 mg PO BID Fleet Enema 19-7 gram/118 mL Enema 118 ml VT DAILY PRN (Reason: Constipation) docusate sodium 100 mg Capsule 100 mg PO BID glucagon 1 mg Recon Soln 1 mg IM DAILY PRN (Reason: Hypoglycemia) ibuprofen 600 mg Tablet 600 mg PO Q8H PRN (Reason: Pain) levetiracetam 1,000 mg Tablet 1,000 mg PO BID oxcarbazepine 150 mg Tablet 150 mg PO BID sennosides [senna] 8.6 mg Tablet 8.6 mg PO Q24H PRN (Reason: Constipation) phenytoin sodium extended 200 mg Capsule 200 mg PO BID quetiapine 50 mg Tablet 50 mg PO BID insulin aspart U-100 [Novolog PenFill U-100 Insulin] 100 unit/mL Cartridge See Protocol SUBCUT QIDACHS Protocol: Insulin Correction Scale Less than or equal to 110 ---- Give (units): 0 111 to 150 Give (units): 0 151 to 200 Give (units): 2 201 to 250 Give (units): 4 251 to 300 Give (units): 6 301 to 350 Give (units): 8 Greater than 350 Give (units): 10 Call MD if Blood Glucose > : 350 cholecalciferol (vitamin D3) 1,250 mcg (50,000 unit) Capsule 1,250 mcg PO QMONTH Rx Instructions: TAKE ON THE 17TH OF EACH MONTH cholecalciferol (vitamin D3) 1,250 mcg (50,000 unit) Capsule 1,250 mcg PO QMONTH Rx Instructions: TAKE ON THE 18TH OF EACH MONTH insulin glargine [Lantus U-100 Insulin] 100 unit/mL solution 15 unit subcut BID atorvastatin [Lipitor] 10 mg Tablet 10 mg PO DAILY <MARIA R Lewis - Last Filed: 07/17/22 17:32> Referrals: Roby Roth DO [Primary Care Provider] - 1 day <MARIA R Lewis - Last Filed: 07/17/22 17:32>
[2022-07-17 14:19] VITALS: BMI 33.3
[2022-07-17 14:26] VITALS: BP 141/92; PULSE 99; RESP 14; TEMP 37; O2SAT 100
--- NOTE | 2022-07-17 14:33 | PC.NURSE ---
PT awake answering questions appropriately. Seizure precautions obtained. Unable to get IV placement. Provider aware. Meds given PO.
[2022-07-17 14:49] LABS: COVID-19 Test Negative (Negative); IDNOW Serial# 55D5AD1C
[2022-07-17 14:51] LABS: IDNOW Serial# 9DB6401D; Influenza A Negative (Negative); Influenza B2 Negative (Negative)
[2022-07-17] MEDS: LORazepam 0.5 MG TABLET PO (14:53)
[2022-07-17] MEDS: levETIRAcetam 1,000 MG TABLET 1000 MG PO (16:12)
[2022-07-17 16:15] LABS: Troponin-I High Sensitivity 9.2 ng/L (<3.5-17.0)
[2022-07-17 16:28] LABS: Alanine Aminotransferase 19 U/L (0-31); Albumin Level 4.3 g/dL (3.5-5.0); Alkaline Phosphatase 227 U/L (39-117); Anion Gap 16 (12-20); Aspartate Amino Transferase 19 U/L (5-31); Bilirubin Direct < 0.2 mg/dL (0.0-0.5); Bilirubin Total 0.2 mg/dL (0.0-1.0); Blood Urea Nitrogen 20 mg/dL (9-16); Calcium 10.6 mg/dL (8.4-10.2); Carbon Dioxide 27 mmol/L (22-29); Chloride 97 mmol/L (96-108); Creatinine Clr Calc Pharmacy 80.6; Estimated Glomerular Filt Rate 56; Glucose Random 105 mg/dL (60-115); Magnesium 1.7 mg/dL (1.6-2.6); Sodium 135 mmol/L (135-145); Total Protein 8.7 g/dL (6.5-8.0)
--- NOTE | 2022-07-17 16:45 | PC.NURSE ---
PT refusing lab draw. Provider notified.
== END 2022-07-17 20:03 ==
PROVIDERS: Physician Assistant; Emergency Provider Emergency Medicine; PCP Hospitalist
DX: G40.909 Epilepsy, unspecified, not intractable, without status epilepticus (principal); M54.2 Cervicalgia; R51.9 Headache, unspecified; Z20.822 Contact with and (suspected) exposure to COVID-19; Z79.899 Other long term (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
CPT/HCPCS: 36415; 70450; 71045; 72125; 80048; 80076; 80185; 83735; 84484; 87502; 87635; 93005; 99284

== ENCOUNTER 2022-10-28 15:10 | Inpatient (IN) | payer MEDICAID, SELFPAY ==
[2022-10-28] VITALS (7 sets, daily range): BP systolic 118–138; BP diastolic 65–90; PULSE 73–84; RESP 16–19; TEMP 36.6–36.8; O2SAT 98–100; BMI 32.5
[2022-10-28 16:07] LABS: Hemoglobin 11.1 g/dl (12.0-16.0); Imm Gran Abs Auto 0.01 X10*3/uL (0.00-0.03); Imm Gran Pct Auto 0.2 % (0.0-0.4); MANUAL DIFF FLAG SCAN; Mean Corpuscular Volume 84.3 fL (80.0-98.0); PLT CLUMP 1; Red Cell Distribution Width 12.6 % (11.0-16.0); SCAN SMEAR FLAG 1
[2022-10-28 16:09] LABS: Basophils Percent Auto 0.2 % (0-2); Eosinophils Percent Auto 0.2 % (0-4); Hematocrit 33.4 % (37.0-47.0); Lymphocytes Absolute Auto 1.3 X10*3/uL (1.2-4.9); Lymphocytes Percent Auto 25.4 % (20-40); Mean Corpuscular HGB Conc 33.2 g/dl (31.0-35.0); Monocytes Absolute Auto 0.3 X10*3/uL (0.1-1.2); Monocytes Percent Auto 5.9 % (2-11); Neutrophils Absolute Auto 3.6 x10*3/uL (2.0-8.3); Neutrophils Percent Auto 68.1 % (45-73); Red Blood Count 3.96 X10*6/uL (4.20-5.50)
--- NOTE | 2022-10-28 16:21 | ED_ITS ---
HPI - General Adult General Chief complaint: General Medical Stated complaint: HYPERGLYCIMIA Time Seen by Provider: 10/28/22 16:14 Source: patient, EMS, RN notes reviewed and old records reviewed Mode of arrival: EMS Limitations: no limitations History of Present Illness HPI narrative: 52-year-old female with past medical history of subarachnoid hemorrhage, dementia, seizure disorder, mood disorder, anxiety, diabetes type 2, HTN, HLD, hypothyroidism, patient presented today for abnormal elevation of blood sugar patient claimed that she is compliant with her insulin therapy at the retirement. Patient has been complaining of blurry vision. Related Data Home Medications Medication Instructions Recorded Confirmed acetaminophen 325 mg tablet 650 mg PO Q6H PRN Fever Or Pain 03/19/21 05/04/22 benztropine 1 mg tablet 1 mg PO BID 03/19/21 05/04/22 docusate sodium 100 mg capsule 100 mg PO BID 03/19/21 05/04/22 ferrous sulfate 325 mg (65 mg 325 mg PO DAILY 03/19/21 05/04/22 iron) tablet gabapentin 600 mg tablet 600 mg PO TID 03/19/21 05/04/22 glucagon 1 mg solution for 1 mg IM DAILY PRN Hypoglycemia 03/19/21 05/04/22 injection haloperidol 10 mg tablet 10 mg PO BID 03/19/21 05/04/22 haloperidol 5 mg tablet 5 mg PO BID 03/19/21 05/04/22 ibuprofen 600 mg tablet 600 mg PO Q8H PRN Pain 03/19/21 05/04/22 levetiracetam 1,000 mg tablet 1,000 mg PO BID 03/19/21 05/04/22 levothyroxine 25 mcg tablet 125 mcg PO SUMOTUTHFRSA@0630 03/19/21 05/04/22 metformin 1,000 mg tablet 1,000 mg PO BID 03/19/21 05/04/22 oxcarbazepine 150 mg tablet 150 mg PO BID 03/19/21 05/04/22 phenytoin sodium extended 200 mg 200 mg PO BID 03/19/21 05/04/22 capsule quetiapine 50 mg tablet 50 mg PO BID 03/19/21 05/04/22 sennosides 8.6 mg tablet (senna) 8.6 mg PO Q24H PRN Constipation 08/01/21 09/16/22 sodium phosphates 19 gram-7 118 ml WI DAILY PRN Constipation 03/19/21 05/04/22 gram/118 mL enema (Fleet Enema) cholecalciferol (vitamin D3) 1,250 1,250 mcg PO QMONTH 03/20/21 05/04/22 mcg (50,000 unit) capsule cholecalciferol (vitamin D3) 1,250 1,250 mcg PO QMONTH 03/20/21 05/04/22 mcg (50,000 unit) capsule insulin aspart U-100 100 unit/mL See Protocol subcut QIDACHS 03/20/21 05/04/22 subcutaneous cartridge (Novolog PenFill U-100 Insulin aspart) atorvastatin 10 mg tablet (Lipitor) 10 mg PO DAILY 05/04/22 05/04/22 insulin glargine 100 unit/mL 15 unit subcut BID 05/04/22 05/04/22 subcutaneous solution (Lantus U-100 Insulin) Allergies Allergy/AdvReac Type Severity Reaction Status Date / Time chlorpromazine Allergy Intermediate HIVES Verified 10/28/22 15:21 [CHLORPROMAZINE] Review of Systems Review of Systems: All other systems are reviewed and are negative Constitutional: Reports as per HPI and Reports no additional constitutional complaints Eyes: Reports as per HPI and Reports no additional eye complaints Reports system reviewed and no additional complaints, except as documented Cardiovascular: Reports as per HPI and Reports no additional cardiovascular complaints Respiratory: Reports as per HPI and Reports no additional respiratory complaints Gastrointestinal: Reports as per HPI and Reports no additional gastrointestinal complaints Genitourinary: Reports no additional female genitourinary complaints Musculoskeletal: Reports no additional musculoskeletal complaints Skin/Breast: Reports system reviewed and no additional complaints, except as docu Psychiatric: Reports no additional psychiatric complaints Endocrine: Reports no additional endocrine complaints Hematologic/Lymphatic: Reports no additional hematologic/lymphatic complaints Allergic/Immunologic: Reports no additional allergic/immunologic complaints Reports system reviewed and no additional complaints, except as documented and Reports Abnormal speech [facility] Past Medical History Medical History Anxiety COVID-19 Cystitis Dementia Diabetes Diabetic retinopathy ESBL (extended spectrum beta-lactamase) producing bacteria infection Essential (primary) hypertension Hyperkalemia Hyperlipidemia Hypothermia Hypothyroid Leiomyoma of body of uterus Long QT syndrome Mood disorder Preglaucoma Presbyopia Seizure disorder Sepsis Subarachnoid hemorrhage following injury TBI (traumatic brain injury) Unspecified dementia with behavioral disturbance UTI (urinary tract infection) Family History Family History Mother Breast cancer Social History Social History Household Members: Other Housing: Half-Way Do you presently have visiting nurse or other home services: No (from [facility]) Alcohol intake: never Patient Tobacco Use Status: Never used Tobacco Advance Directives: Yes Advance Directives on File: Yes Advance Directives Date on File: 03/23/21 service: No Current occupational status: disabled Physical Exam ED Vital Signs: Vital Signs - 24 hr 10/28/22 15:28 10/28/22 16:00 10/28/22 18:00 Temperature 98.3 F 98.2 F 98.2 F Pulse Rate 82 80 73 Respiratory Rate 18 16 16 Blood Pressure 118/69 135/80 133/71 Pulse Oximetry 98 98 Oxygen Delivery Method Room Air Room Air 10/28/22 19:33 10/28/22 21:26 10/28/22 23:56 Temperature 98.2 F 97.8 F 97.9 F Pulse Rate 82 77 73 Respiratory Rate 16 16 19 Blood Pressure 131/65 133/75 138/65 Pulse Oximetry 98 98 100 Oxygen Delivery Method Room Air Room Air Room Air BMI result Body Mass Index 32.5 Vital signs have been reviewed as appeared to be correct. Blood pressure normal. Heart rate normal. Respiration rate normal. Temperature normal. Oxygen saturation normal. Appearance: Alert. Oriented X3. No acute distress. Head: Normal external exam. Normocephalic. Atraumatic. No [place] signs noted. No raccoon eyes noted Eyes: PERRLA. EOMI. Conjunctiva and sclera normal. Eyelids normal. ENT: TM's Normal. Pharynx normal. Uvula midline. Moist mucous membranes. No trismus noted. No drooling noted. No muffled voice noted. Neck: Normal inspection. Neck supple. FROM. No adenopathy. Thyroid Normal. No meningeal signs. No neck mass noted. CVS: Normal heart rate and rhythm. Heart sound normal. No murmurs noted. Pulses normal throughout. Respiratory: No respiratory distress. Painless inspiration. Breath sounds normal. No wheezes/rales/rhonchi noted. Chest nontender. No accessory muscle usage noted or decreased air movement noted. Abdomen: Soft and nontender. Bowel sounds normal in all 4 quadrants. No distention noted. No organomegaly noted. No visible injury noted. Back: No CVA tenderness. Full range of motion noted. Skin: Skin warm and dry. Normal skin color. Normal skin turgor. No rashes/lesions/lacerations noted. Extremities: No lower extremity edema. Extremities exhibit normal range of motion. Extremities nontender. Neuro: Oriented X 3. Cranial nerve exam: II-XII are grossly intact No motor deficit. No sensory deficit. Reflexes normal. Course Course Course Narrative: 52-year-old female type 2 diabetes controlled with insulin patient required multiple doses of insulin and rapid acting insulin still was refractory hyperglycemia, no DKA, no anion gap, normal bicarb. Will cover with oral antibiotic for UTI her. No sepsis or septic shock. Medications Administered Discontinued Medications Generic Name Dose Route Start Last Admin Trade Name Freq PRN Reason Stop Dose Admin Cefuroxime Axetil 500 mg 10/28/22 18:14 10/28/22 19:15 Cefuroxime Axetil 500 Mg Tablet PO 10/28/22 18:15 500 mg ONCE ONE Administration Sodium Chloride 1,000 mls @ 999 mls/hr 10/28/22 16:35 10/28/22 20:47 Ns IV 10/28/22 17:35 Infused .Q1H1M ONE Infusion Sodium Chloride 1,000 mls @ 999 mls/hr 10/28/22 19:47 10/28/22 20:59 Ns IV 10/28/22 20:47 Not Given .Q1H1M ONE Insulin Glargine 10 unit 10/28/22 22:38 10/28/22 23:36 Insulin Glargine,Hum.Rec.Anlog 100 Unit/Ml 10 Ml Vial SUBCUT 10/28/22 22:39 10 unit ONCE ONE Administration Insulin Human Regular 10 unit 10/28/22 16:35 10/28/22 16:45 Insulin Regular, Human 100 Unit/Ml 3 Ml Vial IVPUSH 10/28/22 16:36 10 unit ONCE ONE Administration Insulin Human Regular 5 unit 10/28/22 19:47 10/28/22 20:33 Insulin Regular, Human 100 Unit/Ml 3 Ml Vial IVPUSH 10/28/22 19:48 5 unit ONCE ONE Administration Medical Decision Making Differential Diagnosis Differential Diagnoses: The differential diagnosis associated with the presentation includes (DKA, hyperglycemia, electrolyte disturbance, dehydration, UTI.) Admission/Observation Consideration of admission/observation: Escalation of care including admission/observation considered Consult Healthcare Provider Management of the patient was discussed with: Hospitalist Lab Data MDM Lab Attestation statement: I reviewed the patient's lab results. 10/28/22 16:03 10/28/22 16:03 Labs: Lab Results 10/28/22 10/28/22 10/28/22 Range/Units 15:35 16:03 16:03 WBC 5.2 (4.8-10.8) X10*3/uL RBC 3.96 L (4.20-5.50) X10*6/uL Hgb 11.1 L (12.0-16.0) g/dl Hct 33.4 L (37.0-47.0) % MCV 84.3 (80.0-98.0) fL MCH 28.0 (27.0-33.0) pg MCHC 33.2 (31.0-35.0) g/dl RDW 12.6 (11.0-16.0) % Plt Count 206 (160-400) X10*3/uL MPV Not Reportable Immature Gran % (Auto) 0.2 (0.0-0.4) % Neut % (Auto) 68.1 (45-73) % Lymph % (Auto) 25.4 (20-40) % [place] % (Auto) 5.9 (2-11) % Eos % (Auto) 0.2 (0-4) % Baso % (Auto) 0.2 (0-2) % Lymph # (Auto) 1.3 (1.2-4.9) X10*3/uL [place] # (Auto) 0.3 (0.1-1.2) X10*3/uL Eos # (Auto) 0.0 (0.0-0.4) X10*3/uL Baso # (Auto) 0.0 (0.0-0.2) X10*3/uL Abs Immat Gran (auto) 0.01 (0.00-0.03) X10*3/uL Absolute Neuts (auto) 3.6 (2.0-8.3) x10*3/uL Absolute Nucleated RBC 0.000 (0.0-0.012) X10*3/uL Nucleated RBC % (auto) 0.0 (0.0-0.2) /100WBC Smear Tech's Comments VERIFIED Sodium 131 L (135-145) mmol/L Potassium 4.6 (3.3-5.1) mmol/L Chloride 94 L (96-108) mmol/L Carbon Dioxide 25 (22-29) mmol/L Anion Gap 17 (12-20) BUN 18 H (9-16) mg/dL Creatinine 1.42 H (0.5-1.4) mg/dL Estim Creat Clear Calc 57.5 Estimated GFR 39 POC Glucose 418 H* (60-115) mg/dL Random Glucose 497 H* (60-115) mg/dL Calcium 9.8 D (8.4-10.2) mg/dL Total Bilirubin 0.2 (0.0-1.0) mg/dL AST 18 (5-31) U/L ALT 12 (0-31) U/L Alkaline Phosphatase 191 H (39-117) U/L Total Protein 8.7 H (6.5-8.0) g/dL Albumin 4.3 (3.5-5.0) g/dL Urine Color Urine Appearance Urine pH (5.0-9.0) Ur Specific [place] (1.005-1.025) Urine Protein (Neg-Trace) mg/dL Urine Glucose (UA) (Negative) mg/dL Urine Ketones (Negative) mg/dL Urine Blood (Negative) Urine Nitrite (Negative) Ur Leukocyte Esterase (Negative) Urine RBC (0-2) /HPF Urine WBC (0-5) /HPF Ur Squamous Epith Cells (0-2) /HPF Urine Bacteria (None Seen) Hyaline Casts (0-2) /LPF COVID-19 (ELIZ) (Negative) COVID-19 Clin Com 10/28/22 10/28/22 10/28/22 Range/Units 16:03 17:16 17:51 WBC (4.8-10.8) X10*3/uL RBC (4.20-5.50) X10*6/uL Hgb (12.0-16.0) g/dl Hct (37.0-47.0) % MCV (80.0-98.0) fL MCH (27.0-33.0) pg MCHC (31.0-35.0) g/dl RDW (11.0-16.0) % Plt Count (160-400) X10*3/uL MPV Immature Gran % (Auto) (0.0-0.4) % Neut % (Auto) (45-73) % Lymph % (Auto) (20-40) % [place] % (Auto) (2-11) % Eos % (Auto) (0-4) % Baso % (Auto) (0-2) % Lymph # (Auto) (1.2-4.9) X10*3/uL [place] # (Auto) (0.1-1.2) X10*3/uL Eos # (Auto) (0.0-0.4) X10*3/uL Baso # (Auto) (0.0-0.2) X10*3/uL Abs Immat Gran (auto) (0.00-0.03) X10*3/uL Absolute Neuts (auto) (2.0-8.3) x10*3/uL Absolute Nucleated RBC (0.0-0.012) X10*3/uL Nucleated RBC % (auto) (0.0-0.2) /100WBC Smear Tech's Comments Sodium (135-145) mmol/L Potassium (3.3-5.1) mmol/L Chloride (96-108) mmol/L Carbon Dioxide (22-29) mmol/L Anion Gap (12-20) BUN (9-16) mg/dL Creatinine (0.5-1.4) mg/dL Estim Creat Clear Calc Estimated GFR POC Glucose 380 H* (60-115) mg/dL Random Glucose (60-115) mg/dL Calcium (8.4-10.2) mg/dL Total Bilirubin (0.0-1.0) mg/dL AST (5-31) U/L ALT (0-31) U/L Alkaline Phosphatase (39-117) U/L Total Protein (6.5-8.0) g/dL Albumin (3.5-5.0) g/dL Urine Color Yellow Urine Appearance Clear Urine pH 5.5 (5.0-9.0) Ur Specific [place] 1.020 (1.005-1.025) Urine Protein Negative (Neg-Trace) mg/dL Urine Glucose (UA) >=1000 H (Negative) mg/dL Urine Ketones Negative (Negative) mg/dL Urine Blood Trace H (Negative) Urine Nitrite Negative (Negative) Ur Leukocyte Esterase Trace H (Negative) Urine RBC 0-2 (0-2) /HPF Urine WBC 11-20 H (0-5) /HPF Ur Squamous Epith Cells 0-2 (0-2) /HPF Urine Bacteria None Seen (None Seen) Hyaline Casts 0-2 (0-2) /LPF COVID-19 (ELIZ) Negative (Negative) COVID-19 Clin Com See Note 10/28/22 10/28/22 10/28/22 Range/Units 19:33 22:20 23:34 WBC (4.8-10.8) X10*3/uL RBC (4.20-5.50) X10*6/uL Hgb (12.0-16.0) g/dl Hct (37.0-47.0) % MCV (80.0-98.0) fL MCH (27.0-33.0) pg MCHC (31.0-35.0) g/dl RDW (11.0-16.0) % Plt Count (160-400) X10*3/uL MPV Immature Gran % (Auto) (0.0-0.4) % Neut % (Auto) (45-73) % Lymph % (Auto) (20-40) % [place] % (Auto) (2-11) % Eos % (Auto) (0-4) % Baso % (Auto) (0-2) % Lymph # (Auto) (1.2-4.9) X10*3/uL [place] # (Auto) (0.1-1.2) X10*3/uL Eos # (Auto) (0.0-0.4) X10*3/uL Baso # (Auto) (0.0-0.2) X10*3/uL Abs Immat Gran (auto) (0.00-0.03) X10*3/uL Absolute Neuts (auto) (2.0-8.3) x10*3/uL Absolute Nucleated RBC (0.0-0.012) X10*3/uL Nucleated RBC % (auto) (0.0-0.2) /100WBC Smear Tech's Comments Sodium (135-145) mmol/L Potassium (3.3-5.1) mmol/L Chloride (96-108) mmol/L Carbon Dioxide (22-29) mmol/L Anion Gap (12-20) BUN (9-16) mg/dL Creatinine (0.5-1.4) mg/dL Estim Creat Clear Calc Estimated GFR POC Glucose 326 H 309 H 329 H (60-115) mg/dL Random Glucose (60-115) mg/dL Calcium (8.4-10.2) mg/dL Total Bilirubin (0.0-1.0) mg/dL AST (5-31) U/L ALT (0-31) U/L Alkaline Phosphatase (39-117) U/L Total Protein (6.5-8.0) g/dL Albumin (3.5-5.0) g/dL Urine Color Urine Appearance Urine pH (5.0-9.0) Ur Specific [place] (1.005-1.025) Urine Protein (Neg-Trace) mg/dL Urine Glucose (UA) (Negative) mg/dL Urine Ketones (Negative) mg/dL Urine Blood (Negative) Urine Nitrite (Negative) Ur Leukocyte Esterase (Negative) Urine RBC (0-2) /HPF Urine WBC (0-5) /HPF Ur Squamous Epith Cells (0-2) /HPF Urine Bacteria (None Seen) Hyaline Casts (0-2) /LPF COVID-19 (ELIZ) (Negative) COVID-19 Clin Com 10/29/22 Range/Units 00:47 WBC (4.8-10.8) X10*3/uL RBC (4.20-5.50) X10*6/uL Hgb (12.0-16.0) g/dl Hct (37.0-47.0) % MCV (80.0-98.0) fL MCH (27.0-33.0) pg MCHC (31.0-35.0) g/dl RDW (11.0-16.0) % Plt Count (160-400) X10*3/uL MPV Immature Gran % (Auto) (0.0-0.4) % Neut % (Auto) (45-73) % Lymph % (Auto) (20-40) % [place] % (Auto) (2-11) % Eos % (Auto) (0-4) % Baso % (Auto) (0-2) % Lymph # (Auto) (1.2-4.9) X10*3/uL [place] # (Auto) (0.1-1.2) X10*3/uL Eos # (Auto) (0.0-0.4) X10*3/uL Baso # (Auto) (0.0-0.2) X10*3/uL Abs Immat Gran (auto) (0.00-0.03) X10*3/uL Absolute Neuts (auto) (2.0-8.3) x10*3/uL Absolute Nucleated RBC (0.0-0.012) X10*3/uL Nucleated RBC % (auto) (0.0-0.2) /100WBC Smear Tech's Comments Sodium (135-145) mmol/L Potassium (3.3-5.1) mmol/L Chloride (96-108) mmol/L Carbon Dioxide (22-29) mmol/L Anion Gap (12-20) BUN (9-16) mg/dL Creatinine (0.5-1.4) mg/dL Estim Creat Clear Calc Estimated GFR POC Glucose 333 H (60-115) mg/dL Random Glucose (60-115) mg/dL Calcium (8.4-10.2) mg/dL Total Bilirubin (0.0-1.0) mg/dL AST (5-31) U/L ALT (0-31) U/L Alkaline Phosphatase (39-117) U/L Total Protein (6.5-8.0) g/dL Albumin (3.5-5.0) g/dL Urine Color Urine Appearance Urine pH (5.0-9.0) Ur Specific [place] (1.005-1.025) Urine Protein (Neg-Trace) mg/dL Urine Glucose (UA) (Negative) mg/dL Urine Ketones (Negative) mg/dL Urine Blood (Negative) Urine Nitrite (Negative) Ur Leukocyte Esterase (Negative) Urine RBC (0-2) /HPF Urine WBC (0-5) /HPF Ur Squamous Epith Cells (0-2) /HPF Urine Bacteria (None Seen) Hyaline Casts (0-2) /LPF COVID-19 (ELIZ) (Negative) COVID-19 Clin Com Discharge Plan Discharge Clinical Impression: UTI (urinary tract infection), Acute hyperglycemia Patient Disposition: Admitted As Inpatient
[2022-10-28 16:26] LABS: COVID-19 Test Negative (Negative); IDNOW Serial# 16C4AD1C; Platelet Count 206 X10*3/uL (160-400); White Blood Count 5.2 X10*3/uL (4.8-10.8)
[2022-10-28 16:27] LABS: SLIDE REVIEW VERIFIED
[2022-10-28 16:36] LABS: Alanine Aminotransferase 12 U/L (0-31); Albumin Level 4.3 g/dL (3.5-5.0); Alkaline Phosphatase 191 U/L (39-117); Anion Gap 17 (12-20); Aspartate Amino Transferase 18 U/L (5-31); Bilirubin Total 0.2 mg/dL (0.0-1.0); Blood Urea Nitrogen 18 mg/dL (9-16); Calcium 9.8 mg/dL (8.4-10.2); Carbon Dioxide 25 mmol/L (22-29); Chloride 94 mmol/L (96-108); Creatinine Clr Calc Pharmacy 57.5; Estimated Glomerular Filt Rate 39; Glucose Random 497 mg/dL (60-115); Potassium 4.6 mmol/L (3.3-5.1); Sodium 131 mmol/L (135-145); Total Protein 8.7 g/dL (6.5-8.0)
[2022-10-28] MEDS: Insulin Regular, Human 100 UNIT/ML 3 ML VIAL 10 UNIT IVPUSH (16:45)
[2022-10-28] MEDS: 0.9 % Sodium Chloride 1,000 ML 999 ML IV (16:46)
[2022-10-28 17:51] LABS: Appearance Urine Clear; Color Urine Yellow; Glucose Urine UA >=1000 mg/dL (Negative); Leukocyte Esterase Urine Trace (Negative); Nitrite Urine Negative (Negative); PH 5.5 (5.0-9.0); UMIC TRIGGER UACC YES; Urine Blood Trace (Negative); Urine Ketones Negative (Negative); Urine Protein Negative (Neg-Trace)
[2022-10-28 17:56] LABS: Bacteria Urine None Seen (None Seen); Hyaline Casts Urine 0-2 /LPF (0-2); RBC Urine 0-2 /HPF (0-2); Squamous Epithelial Cell Urine 0-2 /HPF (0-2); UACC Culture Trigger YES
--- NOTE | 2022-10-28 17:56 | PC.NURSE ---
pt a&ox3, vss, POC 380, 1L of NS running. no new orders at this time.
--- NOTE | 2022-10-28 19:19 | PC.NURSE ---
pt medicated per provider order, resting quietly, no new orders at this time.
--- NOTE | 2022-10-28 19:34 | MHC.EDTECH ---
pt vitals sign taken and blood sugar check .
[2022-10-28 20:05] LABS: Glucose, Whole Blood 418 mg/dL (60-115)
[2022-10-28 20:05] LABS: Glucose, Whole Blood 326 mg/dL (60-115)
[2022-10-28] MEDS: Insulin Regular, Human 100 UNIT/ML 3 ML VIAL IVPUSH (20:33)
[2022-10-28 20:44] LABS: Glucose, Whole Blood 380 mg/dL (60-115)
[2022-10-28 23:11] LABS: Glucose, Whole Blood 309 mg/dL (60-115)
[2022-10-28] MEDS: Insulin Glargine,Hum.rec.anlog 100 UNIT/ML 10 ML VIAL 10 UNIT SUBCUT (23:36)
[2022-10-28 23:44] LABS: Glucose, Whole Blood 329 mg/dL (60-115)
--- NOTE | 2022-10-29 00:07 | PC.NURSE ---
Assumed care from ABELARDO Gutierrez, Poc completed and provider notified of results. medicated per Mar, no sob or chest pain at this time. Will continue to monitor.
[2022-10-29 00:53] LABS: Glucose, Whole Blood 333 mg/dL (60-115)
[2022-10-29] MEDS: 0.9 % Sodium Chloride 1,000 ML 999 ML IV (01:31)
--- NOTE | 2022-10-29 01:34 | PC.NURSE ---
This MD discussing order for Macrobid with MD Garibay as pt has already received Ceftin. Per MD Garibay, Macrobidavid duplicate order and to hold. Primary RN Valentina ricketts.
--- NOTE | 2022-10-29 02:35 | PC.NURSE ---
Pt a&o, able to answer questions, no sign of distress. Will continue to monitor.
--- NOTE | 2022-10-29 02:47 | P.HPHOSP_ITS ---
History of Present Illness Date of Service: 10/29/22 Chief Complaint: Hyperglycemia 52-year-old female with a past medical history of hypertension, hyperlipidemia, hypothyroidism, diabetes, diabetic nephropathy, diabetic retinopathy, long QT syndrome, Kennedy myoma of the uterus, history of COVID-19 infection, dementia, anxiety, depression, history of subarachnoid hemorrhage, traumatic brain injury, history of UTIs; seizure disorder, retirement resident presented to the hospital with a chief complaint of hyperglycemia. Patient is in a [place] [facility]. Patient has been on Lantus U 100 and NovoLog at home. Over the past couple days patient noted to have elevated blood sugars which were not improving hence patient was sent to the hospital for further evaluation. Patient mentions generalized weakness. Denies any nausea vomiting abdominal pain. Denies any diarrhea. Denies any fever chills cough or sputum production. Denies any urinary symptoms. Review of all other systems is negative except mentioned above ER course: Per ER team, Patient exam was fairly benign. Patient noted a fingerstick glucose as high as 497. Not in DKA and HHS Patient received least prophylaxis regular insulin blood glucose levels improved to the 100s. On labs noted to have elevated creatinine of 1.4. Urinalysis was slightly abnormal given concerns for UTI patient was given p.o. antibiotics. Admitted to the hospital for further management [facility] Medical History Anxiety COVID-19 Cystitis Dementia Diabetes Diabetic retinopathy ESBL (extended spectrum beta-lactamase) producing bacteria infection Essential (primary) hypertension Hyperkalemia Hyperlipidemia Hypothermia Hypothyroid Leiomyoma of body of uterus Long QT syndrome Mood disorder Preglaucoma Presbyopia Seizure disorder Sepsis Subarachnoid hemorrhage following injury TBI (traumatic brain injury) Unspecified dementia with behavioral disturbance UTI (urinary tract infection) Family History Mother Breast cancer Social History Household Members: Other Housing: [facility] Do you presently have visiting nurse or other home services: No (from [facility]) Alcohol intake: never Patient Tobacco Use Status: Never used Tobacco Smoked in Last 30 Days: No Use of substances other than those prescribed or required for medical reasons: No Advance Directives: Yes Advance Directives on File: Yes Advance Directives Date on File: 03/23/21 Patient : No service: No Current occupational status: disabled Meds Allergies Allergy/AdvReac Type Severity Reaction Status Date / Time chlorpromazine Allergy Intermediate HIVES Verified 10/28/22 15:21 [CHLORPROMAZINE] Active Medications: Current Medications Ceftriaxone Sodium 1 gm/ (Sodium Chloride) 50 mls @ 100 mls/hr IV Q24H TOM Home Medications Medication Instructions Recorded Confirmed Last Taken Type acetaminophen 325 mg tablet 650 mg PO Q6H PRN Fever Or Pain 03/19/21 05/04/22 Unknown History benztropine 1 mg tablet 1 mg PO BID 03/19/21 05/04/22 Unknown History docusate sodium 100 mg capsule 100 mg PO BID 03/19/21 05/04/22 Unknown History ferrous sulfate 325 mg (65 mg 325 mg PO DAILY 03/19/21 05/04/22 Unknown History iron) tablet gabapentin 600 mg tablet 600 mg PO TID 03/19/21 05/04/22 Unknown History glucagon 1 mg solution for 1 mg IM DAILY PRN Hypoglycemia 03/19/21 05/04/22 Unknown History injection haloperidol 10 mg tablet 10 mg PO BID 03/19/21 05/04/22 Unknown History haloperidol 5 mg tablet 5 mg PO BID 03/19/21 05/04/22 Unknown History ibuprofen 600 mg tablet 600 mg PO Q8H PRN Pain 03/19/21 05/04/22 Unknown History levetiracetam 1,000 mg tablet 1,000 mg PO BID 03/19/21 05/04/22 Unknown History levothyroxine 25 mcg tablet 125 mcg PO SUMOTUTHFRSA@0630 03/19/21 05/04/22 Unkn own History metformin 1,000 mg tablet 1,000 mg PO BID 03/19/21 05/04/22 Unknown History oxcarbazepine 150 mg tablet 150 mg PO BID 03/19/21 05/04/22 Unknown History phenytoin sodium extended 200 mg 200 mg PO BID 03/19/21 05/04/22 Unknown History capsule quetiapine 50 mg tablet 50 mg PO BID 03/19/21 05/04/22 Unknown History sennosides 8.6 mg tablet (senna) 8.6 mg PO Q24H PRN Constipation 03/19/21 05/04/22 Unknown History sodium phosphates 19 gram-7 118 ml RI DAILY PRN Constipation 03/19/21 05/04/22 Unknown History gram/118 mL enema (Fleet Enema) cholecalciferol (vitamin D3) 1,250 1,250 mcg PO QMONTH 03/20/21 05/04/22 Unknown History mcg (50,000 unit) capsule cholecalciferol (vitamin D3) 1,250 1,250 mcg PO QMONTH 03/20/21 05/04/22 Unknown History mcg (50,000 unit) capsule insulin aspart U-100 100 unit/mL See Protocol subcut QIDACHS 03/20/21 05/04/22 Unknown History subcutaneous cartridge (Novolog PenFill U-100 Insulin aspart) atorvastatin 10 mg tablet (Lipitor) 10 mg PO DAILY 05/04/22 05/04/22 Unknown History insulin glargine 100 unit/mL 15 unit subcut BID 05/04/22 05/04/22 Unknown History subcutaneous solution (Lantus U-100 Insulin) Physical Exam Vital Signs and Narrative: Vital Signs: Last Vital Signs Temp 97.9 F 10/28/22 23:56 Pulse 73 10/28/22 23:56 Resp 19 10/28/22 23:56 BP 138/65 10/28/22 23:56 Pulse Ox 100 10/28/22 23:56 O2 Del Method 10/28/22 23:56 BMI result Body Mass Index 32.5 Gen: Appears be in no acute distress HEENT: NCAT, Moist mucosa. Pulmonary: Vesicular breath sounds, fair air entry CVS: Normal S1-S2 Abdomen: BS+, Soft, Nontender Extremities: Warm well perfused Neuro: Alert and awake. Results Labs 10/28/22 16:03 10/28/22 16:03 Labs: Laboratory Results - last 24 hr 10/28/22 10/28/22 10/28/22 15:35 16:03 16:03 MCV 84.3 MCH 28.0 MCHC 33.2 RDW 12.6 Plt Count 206 MPV Not Reportable Immature Gran % (Auto) 0.2 Neut % (Auto) 68.1 Lymph % (Auto) 25.4 [place] % (Auto) 5.9 Eos % (Auto) 0.2 Baso % (Auto) 0.2 Lymph # (Auto) 1.3 [place] # (Auto) 0.3 Eos # (Auto) 0.0 Baso # (Auto) 0.0 Abs Immat Gran (auto) 0.01 Absolute Neuts (auto) 3.6 Absolute Nucleated RBC 0.000 Nucleated RBC % (auto) 0.0 Smear Tech's Comments VERIFIED Anion Gap 17 Estim Creat Clear Calc 57.5 Estimated GFR 39 POC Glucose 418 H* Random Glucose 497 H* Calcium 9.8 D Total Bilirubin 0.2 AST 18 ALT 12 Alkaline Phosphatase 191 H Total Protein 8.7 H Albumin 4.3 Urine Color Urine Appearance Urine pH Ur Specific Clarence Urine Protein Urine Glucose (UA) Urine Ketones Urine Blood Urine Nitrite Ur Leukocyte Esterase Urine RBC Urine WBC Ur Squamous Epith Cells Urine Bacteria Hyaline Casts COVID-19 (ELIZ) COVID-19 Clin Com 10/28/22 10/28/22 10/28/22 16:03 17:16 17:51 MCV MCH MCHC RDW Plt Count MPV Immature Gran % (Auto) Neut % (Auto) Lymph % (Auto) [place] % (Auto) Eos % (Auto) Baso % (Auto) Lymph # (Auto) [place] # (Auto) Eos # (Auto) Baso # (Auto) Abs Immat Gran (auto) Absolute Neuts (auto) Absolute Nucleated RBC Nucleated RBC % (auto) Smear Tech's Comments Anion Gap Estim Creat Clear Calc Estimated GFR POC Glucose 380 H* Random Glucose Calcium Total Bilirubin AST ALT Alkaline Phosphatase Total Protein Albumin Urine Color Yellow Urine Appearance Clear Urine pH 5.5 Ur Specific Clarence 1.020 Urine Protein Negative Urine Glucose (UA) >=1000 H Urine Ketones Negative Urine Blood Trace H Urine Nitrite Negative Ur Leukocyte Esterase Trace H Urine RBC 0-2 Urine WBC 11-20 H Ur Squamous Epith Cells 0-2 Urine Bacteria None Seen Hyaline Casts 0-2 COVID-19 (ELIZ) Negative COVID-19 Clin Com See Note 10/28/22 10/28/22 10/28/22 19:33 22:20 23:34 MCV MCH MCHC RDW Plt Count MPV Immature Gran % (Auto) Neut % (Auto) Lymph % (Auto) [place] % (Auto) Eos % (Auto) Baso % (Auto) Lymph # (Auto) [place] # (Auto) Eos # (Auto) Baso # (Auto) Abs Immat Gran (auto) Absolute Neuts (auto) Absolute Nucleated RBC Nucleated RBC % (auto) Smear Tech's Comments Anion Gap Estim Creat Clear Calc Estimated GFR POC Glucose 326 H 309 H 329 H Random Glucose Calcium Total Bilirubin AST ALT Alkaline Phosphatase Total Protein Albumin Urine Color Urine Appearance Urine pH Ur Specific Clarence Urine Protein Urine Glucose (UA) Urine Ketones Urine Blood Urine Nitrite Ur Leukocyte Esterase Urine RBC Urine WBC Ur Squamous Epith Cells Urine Bacteria Hyaline Casts COVID-19 (ELIZ) COVID-19 Clin Com 10/29/22 00:47 MCV MCH MCHC RDW Plt Count MPV Immature Gran % (Auto) Neut % (Auto) Lymph % (Auto) [place] % (Auto) Eos % (Auto) Baso % (Auto) Lymph # (Auto) [place] # (Auto) Eos # (Auto) Baso # (Auto) Abs Immat Gran (auto) Absolute Neuts (auto) Absolute Nucleated RBC Nucleated RBC % (auto) Smear Tech's Comments Anion Gap Estim Creat Clear Calc Estimated GFR POC Glucose 333 H Random Glucose Calcium Total Bilirubin AST ALT Alkaline Phosphatase Total Protein Albumin Urine Color Urine Appearance Urine pH Ur Specific Clarence Urine Protein Urine Glucose (UA) Urine Ketones Urine Blood Urine Nitrite Ur Leukocyte Esterase Urine RBC Urine WBC Ur Squamous Epith Cells Urine Bacteria Hyaline Casts COVID-19 (ELIZ) COVID-19 Clin Com Assessment and Plan (1) Acute hyperglycemia: Status: Acute Plan 52-year-old female with a past medical history of hypertension, hyperlipidemia, hypothyroidism, diabetes,diabetic retinopathy, long QT syndrome, Kennedy myoma of the uterus, history of COVID-19 infection, dementia, anxiety, depression, history of subarachnoid hemorrhage, traumatic brain injury, history of UTIs; seizure disorder, retirement resident presented to the hospital with a chief complaint of hyperglycemia. Diabetes/hyperglycemia: Patient not in DKA or HHS. Patient is on Lantus U 100 and NovoLog U 100 at home. Also takes metformin Received regular insulin IV pushes/lispro with improvement in blood sugars from 497 to 300s. Will give the patient on Lantus plus insulin sliding scale No clear signs of infection or status to attribute to her hypoglycemia reportedly patient has been complaint with her insulins at the [place] [facility]. Low carb diet Monitor fingerstick glucose and adjust insulins as needed UTI: Patient denies any symptoms. Patient was started on antibiotics. Will discontinue antibiotics if urine cultures are negative. History of seizures: Continue home oxcarbazepine, Keppra , phenytoin history of dementia with behavioral disturbance: Continue home Seroquel, Haldol, benztropine History of neuropathy: Continue home gabapentin DVT prophylaxis: Subcu heparin Code status: Full code Time Spent With Patient Time: Total time managing care of this patient today ____ minutes. Quality Stroke Does the patient have a stroke diagnosis?: No VTE Prior VTE?: No VTE Risk Level:: Medical - moderate - high VTE Device Contraindication: Treatment Not Indicated VTE Drug Contraindication: N/A - Med Ordered
--- NOTE | 2022-10-29 03:41 | MHC.EDTECH ---
Addendum entered by Karen Marcum 10/29/22 03:42: PT changed over into hospital gown and pants. PT personal belongings placed in belongings bag bedside Original Note: PT changed over into hospital gown and pants. PT personal belongings placed in belongings bed bedside
--- NOTE | 2022-10-29 04:03 | PC.NURSE ---
Pt attempt to call report, RN will call back. Will continue to monitor.
--- NOTE | 2022-10-29 04:16 | PC.NURSE ---
Report called to Mark [facility].
[2022-10-29 04:39] VITALS: BP 179/86; PULSE 74; RESP 16; TEMP 35.7; O2SAT 99
[2022-10-29 04:59] LABS: Glucose, Whole Blood 341 mg/dL (60-115)
[2022-10-29 07:05] VITALS: BP 170/77; PULSE 80; RESP 18; TEMP 36.1; O2SAT 99
[2022-10-29 07:12] LABS: Glucose, Whole Blood 310 mg/dL (60-115)
--- NOTE | 2022-10-29 08:01 | PHA.MEDREC ---
Pharmacy Consult ? Medication Reconciliation Pharmacy has completed the medication reconciliation. Pt with list from [facility]
[2022-10-29] MEDS: Phenytoin Sodium Extended 100 MG CAPSULE 200 MG PO ×2 (08:34→21:17)
[2022-10-29] MEDS: OXcarbazepine 150 MG TABLET PO (08:34)
[2022-10-29] MEDS: Ferrous Sulfate 324 MG TABLET.DR PO (08:34)
[2022-10-29] MEDS: Benztropine Mesylate 1 MG TABLET PO ×2 (08:34→21:17)
[2022-10-29] MEDS: Docusate Sodium 100 MG CAPSULE PO ×2 (08:34→21:17)
[2022-10-29] MEDS: HaloperidoL 5 MG TABLET 10 MG PO ×2 (08:35→21:17)
[2022-10-29] MEDS: QUEtiapine Fumarate 25 MG TABLET PO ×2 (08:35→21:17)
[2022-10-29] MEDS: hydrOXYzine HCL 25 MG TABLET PO ×2 (08:35→21:17)
[2022-10-29] MEDS: levETIRAcetam 1,000 MG TABLET 1000 MG PO ×2 (08:35→21:17)
[2022-10-29] MEDS: Levothyroxine Sodium 150 MCG TABLET PO (08:35)
[2022-10-29] MEDS: Heparin Sodium,Porcine 5,000 UNIT/ML VIAL 5000 UNIT SUBCUT ×3 (08:35→23:46)
[2022-10-29] MEDS: Gabapentin 600 MG TABLET PO ×3 (08:35→21:17)
[2022-10-29] MEDS: HaloperidoL 5 MG TABLET PO ×2 (08:35→21:17)
[2022-10-29] MEDS: Insulin Lispro 100 UNIT/ML 3 ML VIAL SUBCUT ×3 (08:36→21:19)
[2022-10-29] MEDS: Insulin Glargine,Hum.rec.anlog 100 UNIT/ML 10 ML VIAL 20 UNIT SUBCUT (08:36)
[2022-10-29] MEDS: metFORMIN HCl 1,000 MG TABLET 1000 MG PO ×2 (08:36→21:17)
[2022-10-29 10:24] LABS: Estimated Average Glucose 200 mg/dL; Hemoglobin A1c % 8.6 %
[2022-10-29 10:54] LABS: Alanine Aminotransferase 12 U/L (0-31); Albumin Level 3.8 g/dL (3.5-5.0); Alkaline Phosphatase 179 U/L (39-117); Anion Gap 15 (12-20); Aspartate Amino Transferase 16 U/L (5-31); Bilirubin Total 0.2 mg/dL (0.0-1.0); Blood Urea Nitrogen 11 mg/dL (9-16); Calcium 9.1 mg/dL (8.4-10.2); Carbon Dioxide 22 mmol/L (22-29); Chloride 109 mmol/L (96-108); Creatinine Clr Calc Pharmacy 88.8; Estimated Glomerular Filt Rate > 60; Glucose Random 302 mg/dL (60-115); Potassium 4.9 mmol/L (3.3-5.1); Sodium 141 mmol/L (135-145); Total Protein 7.5 g/dL (6.5-8.0)
[2022-10-29 11:12] LABS: Glucose, Whole Blood 249 mg/dL (60-115)
--- NOTE | 2022-10-29 11:30 | MHC.CM.PN ---
pt from [facility] in [place] where she will return when dcd t/m left for jovanni ugalde [phone]
--- NOTE | 2022-10-29 12:24 | PM.EVENT ---
Event Note Date of Service: 10/29/22 Event Note: Seen and evaluated this morning Suger better controlled but remains elevated Give 20 units in morning Increase night lantus to 30 units Kidney injury resolved Pending urine Cx, continue IV Abx Feels depressed, thinking life is not worthliving and report having a suicide plan but doesnt want to share it Sitter in room, suicidal risk Get psychiatry team evaluation Time Spent With Patient Time: Total time managing care of this patient today ____ minutes.
[2022-10-29 15:25] VITALS: BP 128/68; PULSE 78; RESP 16; TEMP 36.2; O2SAT 99
--- NOTE | 2022-10-29 15:30 | PM.PSYCN ---
History of Present Illness Date of Service: 10/29/2022 Chief Complaint: Hyperglycemia Reason for Consult: Depression, SI, Medication Management Requesting physician: Vega Daniels Sources of Information: patient interviewed and chart reviewed HPI Narrative: 52 yo female, [facility] admitted for hyperglycemia with hx of TBI, Subarachnoid hemorrhage, dementia, seizure disorder, mood disorder, anxiety, DM2, HTN, HLD, Hypothyroid, Prolonged QTc, COVID, Diabetic Neuropathy, Diabetic Retinopathy, Urinary Tract Infections, Leiomyomatous uterus. Team reports an increase in depressive sx with verbalized SI-life is not worth living, suicidal plan she would not share. Pt is forthcoming when meeting, reports discouragement, despair as she identifies progressive loss of her eyesight an issue. Reports she is not depressed. Discussed her transfer from [place] to [place] and reports she did not get along in [place], but does get along with others here and intends to continue. She reports she is not feeling suicidal- all of you are too careful with me, how could I do that, I am taken care of. Able to verbalize her frustration with chronic medical issues, care issues which team is actively addressing when she identifies a problem and she expresses gratitude. Past Psychiatric History: Mood disorder Hx of therapy and psychiatry years ago, not currently. Medical Evaluation Reviewed: Yes Review of Systems Reports behavioral changes Psychiatric: Reports anxiety, Reports behavioral changes, Reports hopelessness, Reports irritability, Reports anhedonia and Reports suicidal ideation (denies) [facility] Medical History (Updated 10/29/22 @ 17:18 by Jennifer Hammond, SHAMEKA) Anxiety Anxiety COVID-19 Cystitis Dementia Diabetes Diabetic retinopathy ESBL (extended spectrum beta-lactamase) producing bacteria infection Essential (primary) hypertension Hyperkalemia Hyperlipidemia Hypothermia Hypothyroid Leiomyoma of body of uterus Long QT syndrome Mood disorder Mood disorder Preglaucoma Presbyopia Seizure disorder Sepsis Subarachnoid hemorrhage following injury TBI (traumatic brain injury) Unspecified dementia with behavioral disturbance UTI (urinary tract infection) Family History: not asked. Social History: Extended family is local. 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 Substance History: Denies Trauma History: Affirms Diagnostics Vital Signs (24Hr): Vital Signs - 24 hr 10/28/22 16:00 10/28/22 18:00 10/28/22 19:33 Temperature 98.2 F 98.2 F 98.2 F Pulse Rate 80 73 82 Respiratory Rate 16 16 16 Blood Pressure 135/80 133/71 131/65 Pulse Oximetry 98 98 Oxygen Delivery Method Room Air Room Air 10/28/22 21:26 10/28/22 23:56 10/29/22 04:39 Temperature 97.8 F 97.9 F 96.2 F L Pulse Rate 77 73 74 Respiratory Rate 16 19 16 Blood Pressure 133/75 138/65 179/86 H Pulse Oximetry 98 100 99 Oxygen Delivery Method Room Air Room Air Room Air 10/29/22 07:05 10/29/22 15:25 Temperature 97 F 97.2 F Pulse Rate 80 78 Respiratory Rate 18 16 Blood Pressure 170/77 H 128/68 Pulse Oximetry 99 99 Oxygen Delivery Method Room Air Room Air BMI result Body Mass Index 32.5 Labs 10/28/22 16:03 10/29/22 10:05 Labs: Laboratory Results - last 48 hr 10/28/22 10/28/22 10/28/22 15:35 16:03 16:03 WBC 5.2 RBC 3.96 L Hgb 11.1 L Hct 33.4 L MCV 84.3 MCH 28.0 MCHC 33.2 RDW 12.6 Plt Count 206 MPV Not Reportable Immature Gran % (Auto) 0.2 Neut % (Auto) 68.1 Lymph % (Auto) 25.4 [place] % (Auto) 5.9 Eos % (Auto) 0.2 Baso % (Auto) 0.2 Lymph # (Auto) 1.3 [place] # (Auto) 0.3 Eos # (Auto) 0.0 Baso # (Auto) 0.0 Abs Immat Gran (auto) 0.01 Absolute Neuts (auto) 3.6 Absolute Nucleated RBC 0.000 Nucleated RBC % (auto) 0.0 Smear Tech's Comments VERIFIED Sodium 131 L Potassium 4.6 Chloride 94 L Carbon Dioxide 25 Anion Gap 17 BUN 18 H Creatinine 1.42 H Estim Creat Clear Calc 57.5 Estimated GFR 39 POC Glucose 418 H* Random Glucose 497 H* Estimat Average Glucose Hemoglobin A1c % Calcium 9.8 D Total Bilirubin 0.2 AST 18 ALT 12 Alkaline Phosphatase 191 H Total Protein 8.7 H Albumin 4.3 Urine Color Urine Appearance Urine pH Ur Specific Tate Urine Protein Urine Glucose (UA) Urine Ketones Urine Blood Urine Nitrite Ur Leukocyte Esterase Urine RBC Urine WBC Ur Squamous Epith Cells Urine Bacteria Hyaline Casts COVID-19 (ELIZ) COVID-19 Clin Com 10/28/22 10/28/22 10/28/22 16:03 17:16 17:51 WBC RBC Hgb Hct MCV MCH MCHC RDW Plt Count MPV Immature Gran % (Auto) Neut % (Auto) Lymph % (Auto) [place] % (Auto) Eos % (Auto) Baso % (Auto) Lymph # (Auto) [place] # (Auto) Eos # (Auto) Baso # (Auto) Abs Immat Gran (auto) Absolute Neuts (auto) Absolute Nucleated RBC Nucleated RBC % (auto) Smear Tech's Comments Sodium Potassium Chloride Carbon Dioxide Anion Gap BUN Creatinine Estim Creat Clear Calc Estimated GFR POC Glucose 380 H* Random Glucose Estimat Average Glucose Hemoglobin A1c % Calcium Total Bilirubin AST ALT Alkaline Phosphatase Total Protein Albumin Urine Color Yellow Urine Appearance Clear Urine pH 5.5 Ur Specific Tate 1.020 Urine Protein Negative Urine Glucose (UA) >=1000 H Urine Ketones Negative Urine Blood Trace H Urine Nitrite Negative Ur Leukocyte Esterase Trace H Urine RBC 0-2 Urine WBC 11-20 H Ur Squamous Epith Cells 0-2 Urine Bacteria None Seen Hyaline Casts 0-2 COVID-19 (ELIZ) Negative COVID-19 [employer] Com See Note 10/28/22 10/28/22 10/28/22 19:33 22:20 23:34 WBC RBC Hgb Hct MCV MCH MCHC RDW Plt Count MPV Immature Gran % (Auto) Neut % (Auto) Lymph % (Auto) [place] % (Auto) Eos % (Auto) Baso % (Auto) Lymph # (Auto) [place] # (Auto) Eos # (Auto) Baso # (Auto) Abs Immat Gran (auto) Absolute Neuts (auto) Absolute Nucleated RBC Nucleated RBC % (auto) Smear Tech's Comments Sodium Potassium Chloride Carbon Dioxide Anion Gap BUN Creatinine Estim Creat Clear Calc Estimated GFR POC Glucose 326 H 309 H 329 H Random Glucose Estimat Average Glucose Hemoglobin A1c % Calcium Total Bilirubin AST ALT Alkaline Phosphatase Total Protein Albumin Urine Color Urine Appearance Urine pH Ur Specific Tate Urine Protein Urine Glucose (UA) Urine Ketones Urine Blood Urine Nitrite Ur Leukocyte Esterase Urine RBC Urine WBC Ur Squamous Epith Cells Urine Bacteria Hyaline Casts COVID-19 (ELIZ) COVID-19 Clin Com 10/29/22 10/29/22 10/29/22 00:47 04:47 07:05 WBC RBC Hgb Hct MCV MCH MCHC RDW Plt Count MPV Immature Gran % (Auto) Neut % (Auto) Lymph % (Auto) [place] % (Auto) Eos % (Auto) Baso % (Auto) Lymph # (Auto) [place] # (Auto) Eos # (Auto) Baso # (Auto) Abs Immat Gran (auto) Absolute Neuts (auto) Absolute Nucleated RBC Nucleated RBC % (auto) Smear Tech's Comments Sodium Potassium Chloride Carbon Dioxide Anion Gap BUN Creatinine Estim Creat Clear Calc Estimated GFR POC Glucose 333 H 341 H 310 H Random Glucose Estimat Average Glucose Hemoglobin A1c % Calcium Total Bilirubin AST ALT Alkaline Phosphatase Total Protein Albumin Urine Color Urine Appearance Urine pH Ur Specific Tate Urine Protein Urine Glucose (UA) Urine Ketones Urine Blood Urine Nitrite Ur Leukocyte Esterase Urine RBC Urine WBC Ur Squamous Epith Cells Urine Bacteria Hyaline Casts COVID-19 (ELIZ) COVID-19 [employer] 10/29/22 10/29/22 10/29/22 10:05 10:05 11:04 WBC RBC Hgb Hct MCV MCH MCHC RDW Plt Count MPV Immature Gran % (Auto) Neut % (Auto) Lymph % (Auto) [place] % (Auto) Eos % (Auto) Baso % (Auto) Lymph # (Auto) [place] # (Auto) Eos # (Auto) Baso # (Auto) Abs Immat Gran (auto) Absolute Neuts (auto) Absolute Nucleated RBC Nucleated RBC % (auto) Smear Tech's Comments Sodium 141 Potassium 4.9 Chloride 109 H Carbon Dioxide 22 Anion Gap 15 BUN 11 Creatinine 0.92 Estim Creat Clear Calc 88.8 Estimated GFR > 60 POC Glucose 249 H Random Glucose 302 H Estimat Average Glucose 200 Hemoglobin A1c % 8.6 Calcium 9.1 D Total Bilirubin 0.2 AST 16 ALT 12 Alkaline Phosphatase 179 H Total Protein 7.5 Albumin 3.8 Urine Color Urine Appearance Urine pH Ur Specific Tate Urine Protein Urine Glucose (UA) Urine Ketones Urine Blood Urine Nitrite Ur Leukocyte Esterase Urine RBC Urine WBC Ur Squamous Epith Cells Urine Bacteria Hyaline Casts COVID-19 (ELIZ) COVID-19 [employer] Mental Status Exam Mental Status Exam Patient Appearance: Appropriate Patient Orientation: Person, Place and Situation Level of Consciousness: Alert Patient Behavior: Appropriate, Talkative, Cooperative, Distractible and Good Eye Contact Mood Description: Constricted, Anxious and Apprehensive Affect Description: Constricted Patient Cognition Impaired: Yes Ability to Follow Directions: Good Speech Pattern: Spontaneous Speech and Soft-Spoken Memory Description: Remote Impaired Hallucinations: None Delusions: Not Present Thought Process: Distracted Thought Content: positive for Circumstantial, positive for Tangential and positive for Suicidal Ideation (denies) Depressive Symptoms: Increased Anxiety, Unhappiness and Thoughts of /Suicide (denies) Judgement: Fair Medications Medications Current Medications Acetaminophen (Acetaminophen 325 Mg Tablet) 650 mg PO Q6H PRN PRN Reason: Pain, Mild (Pain Scale 1-3) Atorvastatin Calcium (Atorvastatin Calcium 10 Mg Tablet) 10 mg PO BEDTIME [facility] Benztropine Mesylate (Benztropine Mesylate 1 Mg Tablet) 1 mg PO BID [facility] Last Admin: 10/29/22 08:34 Dose: 1 mg Docusate Sodium (Docusate Sodium 100 Mg Capsule) 100 mg PO BID [facility] Last Admin: 10/29/22 08:34 Dose: 100 mg Ferrous Sulfate (Ferrous Sulfate 324 Mg Tablet.Dr) 324 mg PO DAILY [facility] Last Admin: 10/29/22 08:34 Dose: 324 mg Gabapentin (Gabapentin 600 Mg Tablet) 600 mg PO TID [facility] Last Admin: 10/29/22 15:11 Dose: 600 mg Glucose (Glucose Gel 15 Gm Gel..Gram.) 15 gm PO Q15M PRN; Protocol PRN Reason: per Hypoglycemia Standing Ord. Guaifenesin (Guaifenesin 100 Mg/5 Ml Liquid) 10 ml PO Q4H PRN PRN Reason: Cough Haloperidol (Haloperidol 5 Mg Tablet) 5 mg PO BID [facility] Last Admin: 10/29/22 08:35 Dose: 5 mg Haloperidol (Haloperidol 5 Mg Tablet) 10 mg PO BID [facility] Last Admin: 10/29/22 08:35 Dose: 10 mg Heparin Sodium (Porcine) (Heparin Sodium,Porcine 5,000 Unit/Ml Vial) 5,000 unit SUBCUT Q8H [facility] Last Admin: 10/29/22 15:11 Dose: 5,000 unit Hydroxyzine HCl (Hydroxyzine Hcl 25 Mg Tablet) 25 mg PO BID [facility] Last Admin: 10/29/22 08:35 Dose: 25 mg Ceftriaxone Sodium 1 gm/ (Sodium Chloride) 50 mls @ 100 mls/hr IV Q24H [facility] Dextrose (D10) 250 mls @ 750 mls/hr IV Q15M PRN; Protocol PRN Reason: per Hypoglycemia Standing Ord. Insulin Glargine (Insulin Glargine,Hum.Rec.Anlog 100 Unit/Ml 10 Ml Vial) 30 unit SUBCUT BEDTIME [facility] Insulin Human Lispro (Insulin Lispro 100 Unit/Ml 3 Ml Vial) 0 unit SUBCUT QIDACHS [facility]; Protocol Last Admin: 10/29/22 11:53 Dose: 4 unit Levetiracetam (Levetiracetam 1,000 Mg Tablet) 1,000 mg PO BID [facility] Last Admin: 10/29/22 08:35 Dose: 1,000 mg Levothyroxine Sodium (Levothyroxine Sodium 150 Mcg Tablet) 150 mcg PO DAILY@0600 [facility] Last Admin: 10/29/22 08:35 Dose: 150 mcg Melatonin (Melatonin 3 Mg Tablet) 6 mg PO BEDTIME PRN PRN Reason: Insomnia Metformin HCl (Metformin Hcl 1,000 Mg Tablet) 1,000 mg PO BID [facility] Last Admin: 10/29/22 08:36 Dose: 1,000 mg Non-Formulary Medication (Cholecalciferol (Vitamin D3)) 1,250 mcg PO MO@0900 [facility] Oxcarbazepine (Oxcarbazepine 150 Mg Tablet) 150 mg PO DAILY [facility] Last Admin: 10/29/22 08:34 Dose: 150 mg Oxcarbazepine (Oxcarbazepine 300 Mg Tablet) 300 mg PO BEDTIME [facility] Phenytoin Sodium (Phenytoin Sodium Extended 100 Mg Capsule) 200 mg PO BID [facility] Last Admin: 10/29/22 08:34 Dose: 200 mg Quetiapine Fumarate (Quetiapine Fumarate 25 Mg Tablet) 25 mg PO BID [facility] Last Admin: 10/29/22 08:35 Dose: 25 mg Senna (Sennosides 8.6 Mg Tablet) 17.2 mg PO BEDTIME PRN PRN Reason: Constipation Senna (Sennosides 8.6 Mg Tablet) 8.6 mg PO DAILY PRN PRN Reason: Constipation Sodium Biphosphate/Sodium Phosphate (Sodium Phosphate,[place]-Dibasic 133 Ml Enema) 118 ml [place] DAILY PRN PRN Reason: Constipation Sodium Chloride (0.9 % Sodium Chloride Flush 3 Ml Syringe) 3 ml IVFLUSH QSHIFT [facility] Last Admin: 10/29/22 14:23 Dose: Not Given Allergies Allergies Allergy/AdvReac Type Severity Reaction Status Date / Time chlorpromazine Allergy Intermediate HIVES Verified 10/28/22 15:21 [CHLORPROMAZINE] Assessment & Plan Assessment & Plan (1) Mood disorder: Status: Acute Code(s): F39 - Unspecified mood [affective] disorder (2) Anxiety: Status: Acute Code(s): F41.9 - Anxiety disorder, unspecified (3) Adjustment reaction with mixed disturbance of emotions and conduct: Status: Acute Code(s): F43.25 - Adjustment disorder with mixed disturbance of emotions and conduct Plan 52 yo female, admitted for managment of hypoglycemia. Reports distress over diabetic retinopathy and progressive loss of eyesight. Team reports pt is verbalizing that life is not worth living, SI with plan that she will not share. In discussion, pt denies depressive sx, denies SI, denies plan, but clearly vents her frustration with multiple medical issues, progressive loss of her eyesight and worry about how she will manage independently without sight. 1. TSH, T4 for a.m. 2. Remeron 7.5 mg HS 3. Consider at next neuro appt a transition from Keppra to Depakote as Keppra can promote agitation with mood disordered patients. Depakote may manage a broader base of symptoms more effectively for [place]. 4. Consider referral for [facility] for increase in social rehab and decrease loss of pt's independence with loss of her eyesight. 5. Message left for team at [facility] [phone] to discuss. They are gone for the day. Will follow 10/30/22. 6. Consider level of care eval prior to discharge should pt need more psychiatric in patient care for current sx prior to return to her home. Total time managing care of this patient today ____ minutes. Patient educated on: therapeutic strategies Informed Consent: further education needed
[2022-10-29 16:22] LABS: Glucose, Whole Blood 76 mg/dL (60-115)
--- NOTE | 2022-10-29 18:33 | PC.NURSE ---
Upon assessment this AM pt stated she wants to commit suicide by overdosing on sleeping pills. Pt stated she hasnt attempted suicide. informed and assessed pt at bedside. SI orders in place. Sitter at bedside.
[2022-10-29 19:26] VITALS: BP 116/57; PULSE 89; RESP 15; TEMP 36.6; O2SAT 97
[2022-10-29 20:44] LABS: Glucose, Whole Blood 296 mg/dL (60-115)
[2022-10-29] MEDS: Atorvastatin Calcium 10 MG TABLET PO (21:17)
[2022-10-29] MEDS: OXcarbazepine 300 MG TABLET PO (21:17)
[2022-10-29] MEDS: Insulin Glargine,Hum.rec.anlog 100 UNIT/ML 10 ML VIAL 30 UNIT SUBCUT (21:18)
[2022-10-29] MEDS: 0.9 % Sodium Chloride Flush 3 ML SYRINGE IVFLUSH (21:18)
[2022-10-29] MEDS: Mirtazapine 7.5 MG TABLET PO (21:18)
[2022-10-30 03:40] VITALS: BP 115/68; PULSE 80; RESP 16; TEMP 36; O2SAT 99
[2022-10-30] MEDS: Levothyroxine Sodium 150 MCG TABLET PO (05:01)
[2022-10-30] MEDS: cefTRIAXone sodium 1 GM in 0.9 % Sodium Chloride 50 ML IV (05:01)
[2022-10-30 07:23] VITALS: BP 126/71; PULSE 71; RESP 18; TEMP 36.2; O2SAT 97
[2022-10-30 07:42] LABS: Glucose, Whole Blood 89 mg/dL (60-115)
[2022-10-30] MEDS: Phenytoin Sodium Extended 100 MG CAPSULE 200 MG PO (09:01)
[2022-10-30] MEDS: HaloperidoL 5 MG TABLET PO (09:01)
[2022-10-30] MEDS: metFORMIN HCl 1,000 MG TABLET 1000 MG PO (09:02)
[2022-10-30] MEDS: hydrOXYzine HCL 25 MG TABLET PO (09:02)
[2022-10-30] MEDS: Gabapentin 600 MG TABLET PO (09:02)
[2022-10-30] MEDS: HaloperidoL 5 MG TABLET 10 MG PO (09:02)
[2022-10-30] MEDS: Docusate Sodium 100 MG CAPSULE PO (09:02)
[2022-10-30] MEDS: Benztropine Mesylate 1 MG TABLET PO (09:02)
[2022-10-30] MEDS: QUEtiapine Fumarate 25 MG TABLET PO (09:02)
[2022-10-30] MEDS: OXcarbazepine 150 MG TABLET PO (09:02)
[2022-10-30] MEDS: Heparin Sodium,Porcine 5,000 UNIT/ML VIAL 5000 UNIT SUBCUT (09:03)
[2022-10-30] MEDS: Ferrous Sulfate 324 MG TABLET.DR PO (09:03)
[2022-10-30] MEDS: levETIRAcetam 1,000 MG TABLET 1000 MG PO (09:03)
[2022-10-30] MEDS: 0.9 % Sodium Chloride Flush 3 ML SYRINGE IVFLUSH (09:03)
--- NOTE | 2022-10-30 10:54 | P.DS_ITS ---
DS: Providers Provider Date of Service: 10/30/22 Date of admission: 10/29/22 02:45 Primary care physician: Roby Roth DO Consults: 10/29/22 08:57 Consult for Sitter Routine Reason for consultation: SI statements Has provider been notified: Yes 10/29/22 12:18 Consult to Psychiatry Routine Consulting Provider: Psych Covering Reason for consultation: major depression with suicidal thoughts, med management and advice 10/30/22 08:29 Consult to Care Team Routine Comment: Reason for consultation: medically clear, placement per psych rec. DS: Diagnosis Discharge Diagnosis (1) Mood disorder: Status: Acute (2) Anxiety: Status: Acute (3) Adjustment reaction with mixed disturbance of emotions and conduct: Status: Acute (4) Acute hyperglycemia: Status: Acute (5) UTI (urinary tract infection): Status: Acute DS: Summary Hospital Course Hospital Course: Admission note HPI 52-year-old female with a past medical history of hypertension, hyperlipidemia, hypothyroidism, diabetes, diabetic nephropathy, diabetic retinopathy, long QT syndrome, Kennedy myoma of the uterus, history of COVID-19 infection, dementia, anxiety, depression, history of subarachnoid hemorrhage, traumatic brain injury, history of UTIs; seizure disorder, [facility] presented to the hospital with a chief complaint of hyperglycemia. Patient is in a detention.? Patient has been on Lantus U 100 and NovoLog at home.? Over the past couple days patient noted to have elevated blood sugars which were not improving hence patient was sent to the hospital for further evaluation.? Patient mentions generalized weakness.? Denies any nausea vomiting abdominal pain.? Denies any diarrhea.? Denies any fever chills cough or sputum production.? Denies any urinary symptoms.? Per ER team,? Patient exam was fairly benign.Patient noted a fingerstick glucose as high as 497.? Not in DKA and HHS. Patient received least prophylaxis regular insulin blood glucose levels improved to the 100s.? On labs noted to have elevated creatinine of 1.4.? Urinalysis was slightly abnormal given concerns for UTI patient was given p.o. antibiotics.? Admitted to the hospital for further management Hospital course The patient was admitted with elevated glucose level but no acidemia. treated with higher doses of Lantus insulin and SSI, diabetic diet bringing her readings down 80s-200s. She will need further adjustment based on her readings at the facility. consider BID Lantus of 20 units if sugar levels remains elevated daytime. Have urine infection as culture grew grp B strep. treated with IV Cefrtiaxone. To finish 1 week of Abx. discharged on Ceftin. Evaluated by Psychiatry team for behavioural disturbance and suicidal ideation. Recommended start Remeron 7.5 mg and Consider a transition from Keppra to Depakote as Keppra can promote agitation with mood disordered patients by neurology team.?patient denies any plans to harm herself and reported she mentioned SI as she was frustrated with her general condition mainly losing her sight. Start Remeron 7.5 mg bedtime Continue Ceftin as prescribed Increase Lantus to 30 units at bedtime , monitor sugar over the next week for further adjustment DC Lispro 20 units daily and continue with SSI Consider referral for [facility] for increase in social rehab and decrease loss of pt's independence with loss of her eyesight. Time Spent with Patient Time attestation: Total time managing care of this patient today ____ minutes. Discharge coordination time: Greater than 30 minutes Quality: Safe Use of Opioids Does Pt have an Active Cancer Diagnosis on the Problem List?: No Quality: Stroke Does the patient have a stroke diagnosis?: No Physical Exam Vital Signs: Vital Signs: Last Vital Signs Temp 97.1 F 10/30/22 07:23 Pulse 71 10/30/22 07:23 Resp 18 10/30/22 07:23 BP 126/71 10/30/22 07:23 Pulse Ox 97 10/30/22 07:23 O2 Del Method 10/30/22 07:23 BMI result Body Mass Index 32.5 Const: Other: Constitutional : Awake, interactive, not in distress Neck : Normal inspection, Supple Cardiovascular : RRR, no JVP, no lower extremity edema Respiratory : good bilateral air entry, no crackles, wheezes or rhonchi Gastrointestinal: soft, lax, Normal bowel sounds, Non tender Skin : Warm, Dry Neurological : Alert & oriented , No focal deficit DS: Data Data Completed and Pending Labs on day of discharge: Laboratory Results - last 24 hr 10/29/22 10/29/22 10/29/22 10:05 11:04 16:13 Sodium 141 Potassium 4.9 Chloride 109 H Carbon Dioxide 22 Anion Gap 15 BUN 11 Creatinine 0.92 Estim Creat Clear Calc 88.8 Estimated GFR > 60 POC Glucose 249 H 76 Random Glucose 302 H Calcium 9.1 D Total Bilirubin 0.2 AST 16 ALT 12 Alkaline Phosphatase 179 H Total Protein 7.5 Albumin 3.8 10/29/22 10/30/22 20:29 07:21 Sodium Potassium Chloride Carbon Dioxide Anion Gap BUN Creatinine Estim Creat Clear Calc Estimated GFR POC Glucose 296 H 89 Random Glucose Calcium Total Bilirubin AST ALT Alkaline Phosphatase Total Protein Albumin Discharge Plan Discharge Patient Disposition: Xfer LT Discharge Diagnosis: Hypergylcemia URine infection Referrals: [facility] [Outside] - 1 Week ([facility]) Roby Roth DO [Primary Care Provider] - 1 Week Discharge Medications: New cefuroxime axetil 500 mg tablet 500 mg PO BID Qty: 10 0RF mirtazapine 7.5 mg Tablet 7.5 mg PO BEDTIME Qty: 30 0RF Continued quetiapine 25 mg Tablet 25 mg PO BID oxcarbazepine [Trileptal] 150 mg Tablet 150 mg PO DAILY sennosides [senna] 8.6 mg Tablet 8.6 mg PO DAILY PRN (Reason: Constipation) acetaminophen 325 mg Tablet 650 mg PO Q6H PRN (Reason: Pain) gabapentin 600 mg Tablet 600 mg PO TID haloperidol 5 mg Tablet 5 mg PO BID atorvastatin 10 mg Tablet 10 mg PO BEDTIME phenytoin sodium extended 200 mg Capsule 200 mg PO BID oxcarbazepine [Trileptal] 300 mg Tablet 300 mg PO BEDTIME guaifenesin 100 mg/5 mL Liquid 200 mg PO Q4H PRN (Reason: Cough) insulin aspart U-100 [Novolog U-100 Insulin aspart] 100 unit/mL Solution 1 sliding scale dose SUBCUT USEASDIRECTD Protocol: Insulin Correction Scale Less than or equal to 110 ---- Give (units): 0 111 to 150 Give (units): 0 151 to 200 Give (units): 2 201 to 250 Give (units): 4 251 to 300 Give (units): 6 301 to 350 Give (units): 8 Greater than 350 Give (units): 10 Call MD if Blood Glucose > : 350 metformin 1,000 mg Tablet 1,000 mg PO BID levothyroxine 150 mcg Tablet 150 mcg PO DAILY@0600 haloperidol 10 mg Tablet 10 mg PO BID benztropine 1 mg Tablet 1 mg PO BID Fleet Enema 19-7 gram/118 mL Enema 118 ml [place] DAILY PRN (Reason: Constipation) docusate sodium 100 mg Capsule 100 mg PO BID hydroxyzine HCl 25 mg Tablet 25 mg PO BID ibuprofen 600 mg Tablet 600 mg PO Q8H PRN (Reason: Pain) levetiracetam 1,000 mg Tablet 1,000 mg PO BID calcium carbonate-vitamin D3 [Calcium 600 + D(3)] 600 mg-10 mcg (400 unit) Tablet 2 tab PO DAILY cholecalciferol (vitamin D3) 1,250 mcg (50,000 unit) Capsule 1,250 mcg PO MO@0900 ferrous sulfate 324 mg (65 mg iron) Tablet,Delayed Release (Dr/Ec) 324 mg PO DAILY glucagon HCl [Glucagon (HCl) Emergency Kit] 1 mg Recon Soln 1 mg SUBCUT Q15M PRN (Reason: Hypoglycemia) Rx Instructions: until target blood sugar attained Changed insulin glargine [Lantus Solostar U-100 Insulin] 100 unit/mL (3 mL) Insulin Pen 30 unit SUBCUT BEDTIME Qty: 15 0RF Discontinued insulin lispro [Humalog Pen] 100 unit/mL Insulin Pen 20 unit SUBCUT DAILY Discharge Orders: Discharge Order (Routine); Ordered 10/30/22 Ordered By: Vega Daniels Diet: Diabetic diet Activity on Discharge: As tolerated Stand Alone Forms: Patient Portal Discharge page Care Plan Goals: Read below Health Concerns: Read below Plan of Treatment: Read below Assessment: Admitted for elevated blood sugar. controlled with higher doses of Lantus. Treated for urine infection with IV Antbiotics. Start Remeron 7.5 mg bedtime Continue Ceftin as prescribed Increase Lantus to 30 units at bedtime , monitor sugar over the next week for further adjustment DC Lispro 20 units daily and continue with SSI Discharge Date/Time: 10/30/22 13:00
--- NOTE | 2022-10-30 11:17 | MHC.CM.PN ---
DP: PT IS MEDICALLY CLEARED FOR DC BACK TO [facility] FOR LTC. RN AWARE. [facility] RETURN. TRANSPORTATION BOOKED FOR 12:30 PM VIA Pulse 8.
[2022-10-30 11:18] LABS: Glucose, Whole Blood 196 mg/dL (60-115)
[2022-10-30] MEDS: Insulin Lispro 100 UNIT/ML 3 ML VIAL SUBCUT (12:10)
--- NOTE | 2022-10-30 14:05 | MHC.CARE ---
Pt was seen by CARE team for crisis assessment, she does not meet inpatient level of care currently. HCP is invoked and CARE team spoke with HCP who reports Katelyn is presenting at baseline level of functioning and she had no concerns for her safety currently. [facility] licensed clinical social worker also reports behaviors are baseline and have no concerns with her returning back to SNF. Consult done with hospitalists Dr. 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 Please see CARE team assessment for further clinical details.
== END 2022-10-30 13:00 | DRG 420 ==
LOC: HO.ED 10-29 01:01 → HO.EDOVER 10-29 02:50 → HO.S3 10-29 03:05
PROVIDERS: Admitting Provider Hospitalist; Emergency Provider Emergency Medicine; PCP Hospitalist; Visit Provider Student in an Organized Health Care Education/Training Program
DX: E11.65 Type 2 diabetes mellitus with hyperglycemia (principal); R45.851 Suicidal ideations; E11.40 Type 2 diabetes mellitus with diabetic neuropathy, unspecified; E03.9 Hypothyroidism, unspecified; B95.1 Streptococcus, group B, as the cause of diseases classified elsewhere; E78.5 Hyperlipidemia, unspecified; G40.909 Epilepsy, unspecified, not intractable, without status epilepticus; N39.0 Urinary tract infection, site not specified; F41.9 Anxiety disorder, unspecified; F43.25 Adjustment disorder with mixed disturbance of emotions and conduct; I45.81 Long QT syndrome; Z20.822 Contact with and (suspected) exposure to COVID-19; Z87.440 Personal history of urinary (tract) infections; Z79.4 Long term (current) use of insulin; Z87.820 Personal history of traumatic brain injury; Z88.8 Allergy status to other drugs, medicaments and biological substances; Z79.84 Long term (current) use of oral hypoglycemic drugs; Z79.890 Hormone replacement therapy; Z79.899 Other long term (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
CPT/HCPCS: 36415; 80053; 81001; 82947; 83036; 85025; 87086; 87147; 87635; 99284; J0696; J1643; S9485

== ENCOUNTER → 2023-01-16 09:35 | Outpatient (BNVA) | payer MEDICAID, SELFPAY | PROVIDERS: PCP Hospitalist; Visit Provider Obstetrics & Gynecology ==

== ENCOUNTER 2023-03-27 09:50 | Outpatient (AMB) | payer MEDICAID, SELFPAY ==
--- NOTE | 2023-03-27 09:55 | MHC.OFFVIS ---
Intake Vital Signs 03/27/23 09:59 Height 5 ft 9 in Weight 207 lb BMI 30.6 BP 122/67 Blood Pressure Location Lt brachial Position Sitting Pulse 77 Intake Visit Reasons: Follow up Colonoscopy screening Intake Note: Patient follow up fro colonoscopy screening. Patient cc: diarrhea and denies any other GI issues. Physician Office Specialist Required: No Accompanied by: Employer Allergies chlorpromazine [CHLORPROMAZINE] Allergy (Intermediate, Verified 03/27/23 09:55) HIVES HPI HPI Comments History of Present Illness Details A 52 y/o female referred back again- for screening colonoscopy she was seen about 1 year ago and refused colonoscopy-at that time Her today with staff person Pt states she goes to the [place] too much-if she drinks too much milk-otherwise she has no complaints She says her appetite is too good as well No abdominal pain, N/V-fever or chills Unable to reconcile medications reviewed list [facility] Medical History Adjustment reaction with mixed disturbance of emotions and conduct Anxiety Anxiety COVID-19 Cystitis Dementia Diabetes Diabetic retinopathy ESBL (extended spectrum beta-lactamase) producing bacteria infection Essential (primary) hypertension Hyperkalemia Hyperlipidemia Hypothermia Hypothyroid Leiomyoma of body of uterus Long QT syndrome Mood disorder Mood disorder Preglaucoma Presbyopia Seizure disorder Sepsis Subarachnoid hemorrhage following injury TBI (traumatic brain injury) Unspecified dementia with behavioral disturbance UTI (urinary tract infection) Family History Mother Breast cancer Social History Household Members: Other Housing: [facility] Do you presently have visiting nurse or other home services: No Alcohol intake: never Patient Tobacco Use Status: Never used Tobacco Advance Directives Date on File: 03/23/21 service: No Current occupational status: disabled Review of Systems Const All systems reviewed & are unremarkable except as noted in HPI and below GI Denies abdominal pain, Denies hematochezia, Reports loose stools, Denies nausea and Denies vomiting Physical Exam Vital Signs: Last Vital Signs Pulse 77 03/27/23 09:59 BP 122/67 03/27/23 09:59 BMI result Body Mass Index 30.6 Const General: cooperative, healthy appearing, comfortable and no acute distress Eyes Sclerae: sclerae normal Resp Effort & Inspection: normal respiratory effort and able to speak in complete sentences Auscultation: clear to auscultation bilaterally and no wheezes Cardio Rate: regular rate Rhythm: regular rhythm Heart sounds: S1 normal heart sound present and S2 normal heart sound present GI Inspection: Yes obesity Palpation (GI): Soft to palpation and nontender Auscultation: normal bowel sounds Extrem General: Yes full ROM Psych Speech and movement: Clear speech present Attitude: cooperative Thought content: Normal thought content present Assessment & Plan Assessment & Plan (1) Colonoscopy refused: Comment: 52-year-old female TBI-seizure disorder 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 Code(s): Z53.20 - Procedure and treatment not carried out because of patient's decision for unspecified reasons Plan Cologuard-I am available for any questions or concerns. Patient Instructions: cologuard-if positive would recommend colonoscopy Coding Level of Care Code Est Pt Level 3 (45314) Diagnoses Colonoscopy refused Z53.20 Time Spent (min) 25
[2023-03-27 09:59] VITALS: BP 122/67; PULSE 77; BMI 30.6
== END 2023-03-27 10:52 | disposition home or self-care (01) ==
PROVIDERS: PCP Hospitalist; Visit Provider Physician Assistant
DX: Z53.20 Procedure and treatment not carried out because of patient's decision for unspecified reasons (principal)
CPT/HCPCS: 99213

== ENCOUNTER → 2023-03-27 09:50 | Outpatient (BNVA) | payer MEDICAID, SELFPAY | PROVIDERS: PCP Hospitalist; Visit Provider Physician Assistant | DX: Z53.20 Procedure and treatment not carried out because of patient's decision for unspecified reasons (principal) | CPT/HCPCS: 99212 ==

== ENCOUNTER 2023-08-22 11:01 | Inpatient (IN) | payer MEDICAID, SELFPAY ==
[2023-08-22 11:05] VITALS: BP 120/98; PULSE 84; O2SAT 96
[2023-08-22 11:06] VITALS: BP 147/89; PULSE 83; RESP 18; TEMP 37.1; O2SAT 97; BMI 29.8
--- NOTE | 2023-08-22 11:42 | ED.GENADULT ---
HPI - General Adult General Chief complaint: Recheck/Abnormal Lab/Rx Stated complaint: ABN LAB PER EMS Time Seen by Provider: 08/22/23 11:11 Source: patient Mode of arrival: EMS History of Present Illness HPI narrative: 52-year-old female comes in from long-term care facility with noted elevated TSH, history of TBI and hypothyroid. I did discuss the case with Dr. Roth who is concerned about medication and mealtime conflict with the thyroid medication. Patient herself denies any chest pain or shortness of breath, she denies any abdominal discomfort or urinary symptoms. Related Data Home Medications Medication Instructions Recorded Confirmed acetaminophen 325 mg tablet 650 mg PO Q6H PRN Pain 10/29/22 08/22/23 atorvastatin 10 mg tablet 10 mg PO BEDTIME 10/29/22 08/22/23 benztropine 1 mg tablet 1 mg PO BID 10/29/22 08/22/23 calcium carbonate 600 mg-vitamin 2 tab PO DAILY 10/29/22 08/22/23 D3 10 mcg (400 unit) tablet (Calcium 600 + D(3)) cholecalciferol (vitamin D3) 1,250 1,250 mcg PO MO@0900 10/29/22 08/22/23 mcg (50,000 unit) capsule docusate sodium 100 mg capsule 100 mg PO BID 10/29/22 08/22/23 ferrous sulfate 324 mg (65 mg 324 mg PO DAILY 10/29/22 08/22/23 iron) tablet,delayed release gabapentin 600 mg tablet 600 mg PO TID 10/29/22 08/22/23 guaifenesin 100 mg/5 mL oral liquid 200 mg PO Q4H PRN Cough 10/29/22 08/22/23 haloperidol 10 mg tablet 10 mg PO BID 10/29/22 08/22/23 haloperidol 5 mg tablet 5 mg PO BID 10/29/22 08/22/23 hydroxyzine HCl 25 mg tablet 25 mg PO BID 10/29/22 08/22/23 ibuprofen 600 mg tablet 600 mg PO Q8H PRN Pain 10/29/22 08/22/23 insulin aspart U-100 100 unit/mL 1 sliding scale dose subcut 10/29/22 08/22/23 subcutaneous solution (Novolog USEASDIRECTD U-100 Insulin aspart) levetiracetam 1,000 mg tablet 1,000 mg PO BID 10/29/22 08/22/23 metformin 1,000 mg tablet 1,000 mg PO BID 10/29/22 08/22/23 oxcarbazepine 150 mg tablet 150 mg PO DAILY 10/29/22 08/22/23 (Trileptal) oxcarbazepine 300 mg tablet 300 mg PO BEDTIME 10/29/22 08/22/23 (Trileptal) phenytoin sodium extended 200 mg 200 mg PO MOWEFR@0900,209910/29/22 08/22/23 capsule quetiapine 25 mg tablet 25 mg PO BEDTIME 10/29/22 08/22/23 sennosides 8.6 mg tablet (senna) 8.6 mg PO DAILY PRN Constipation 10/29/22 08/22/23 sodium phosphates 19 gram-7 118 ml NM DAILY PRN Constipation 10/29/22 08/22/23 gram/118 mL enema (Fleet Enema) cranberry fruit 450 mg tablet 450 mg PO DAILY 08/22/23 08/22/23 (cranberry) insulin glargine 100 unit/mL (3 10 unit subcut BEDTIME 08/22/23 08/22/23 mL) subcutaneous pen (Lantus Solostar U-100 Insulin) levothyroxine 88 mcg tablet 88 mcg PO DAILY@0600 08/22/23 08/22/23 loperamide 2 mg capsule 2 mg PO Q6H PRN Loose Stool 08/22/23 08/22/23 ondansetron 4 mg disintegrating 4 mg PO Q6H PRN Nausea And Vomiting 08/22/23 08/22/23 tablet phenytoin 50 mg chewable tablet 50 mg PO SUTUTHSA@0900,209908/22/23 08/22/23 phenytoin sodium extended 100 mg 100 mg PO SUTUTHSA@0900,209908/22/23 08/22/23 capsule Allergies Allergy/AdvReac Type Severity Reaction Status Date / Time chlorpromazine Allergy Intermediate HIVES Verified 03/27/23 09:55 [CHLORPROMAZINE] Review of Systems Review of Systems: Pertinent positives and negatives as stated in [facility] Past Medical History Source: nursing notes reviewed Onset Date is defined in the Problem List Problems that require an onset date and time if occurred within 24 hrs of arrival to the ED Aortic Dissection and Rupture; Neurologic impairment; Cardiopulmonary Arrest; Endotracheal Intubation; Insertion or Replacement of Mechanical Circulatory Assist Device Medical History Adjustment reaction with mixed disturbance of emotions and conduct Anxiety Mood disorder Leiomyoma of body of uterus Preglaucoma Presbyopia UTI (urinary tract infection) Hypothermia Long QT syndrome Sepsis COVID-19 Cystitis Hyperkalemia ESBL (extended spectrum beta-lactamase) producing bacteria infection Essential (primary) hypertension Diabetic retinopathy Anxiety Mood disorder Dementia Subarachnoid hemorrhage following injury TBI (traumatic brain injury) Unspecified dementia with behavioral disturbance Seizure disorder Hypothyroid Hyperlipidemia Diabetes Family History Family History Mother Breast cancer Social History Social History Household Members: Other Housing: [facility] Do you presently have visiting nurse or other home services: No Alcohol intake: never Patient Tobacco Use Status: Never used Tobacco Advance Directives: Yes Advance Directives on File: Yes Advance Directives Date on File: 03/23/21 service: No Current occupational status: disabled Physical Exam ED Vital Signs: Vital Signs - 24 hr 08/22/23 11:06 08/22/23 14:25 Temperature 98.7 F 97.5 F Pulse Rate 83 75 Respiratory Rate 18 19 Blood Pressure 147/89 H 122/69 Pulse Oximetry 97 99 Oxygen Delivery Method Room Air Room Air BMI result Body Mass Index 29.8 VITAL SIGNS: Reviewed. GENERAL: Well developed, well nourished, in no acute distress. HEAD: Normocephalic/atraumatic EYES: PERRLA, EOMI EARS: Ext canals without abnormality NOSE: Nares patent bilateral OROPHARYNX: no oral lesions noted, posterior pharynx clear NECK: Supple, no adenopathy LUNGS: Normal breath sounds. No adventitious sounds or accessory muscle use. SpO2<99> CARDIOVASCULAR: Regular rate and rhythm without noted murmurs ABDOMEN: Soft, non-tender, non-distended with bowel sounds. MUSCULOSKELETAL: No tenderness, deformities, or effusions noted on gross inspection. EXTREMITIES: No cyanosis, clubbing or edema. No pretibial edema noted SKIN: Inspection of the skin reveals no rashes, ulcerations, jaundice, pallor, or petechiae. NEUROLOGIC: Alert and oriented x 2. Strength and sensation to light touch were grossly intact x 4. Medical Decision Making Medical Decision Making MDM Narrative: 52-year-old female with history and clinical presentation for evaluation of change in mental status felt by the sending provider to be associated with TSH levels, DDX: Electrolyte derangement, metabolic derangement, anemia, possible viral illness. I reviewed all investigations and hematologic indices are chronically stable without leukocytosis or left shift, there is a normocytic anemia and there is a thrombocytopenia noted. Chemistry indices demonstrate an MARIBEL with trace elevation of transaminases any chronic elevation of alkaline phosphatase. TSH-78 consistent with hypothyroid, urinalysis appears to be positive and will give patient initial antibiotics, there is no evidence of SIRS. 1345: I suspect infection. Will proceed with lactic acid/blood cultures and antibiotics. Patient will receive 2 g of ceftriaxone. She has a history of ESBL and given reported change in mental status will cover with antibiotics and admit. I discussed the case with facility provider, Dr. Roth who understands that patient will be admitted. 1509: I discussed case with inpatient hospitalist who accepts admission. Differential Diagnosis Differential Diagnoses: The differential diagnosis associated with the presentation includes Please see the discussion above Admission/Observation Consideration of admission/observation: Escalation of care including admission/observation considered Please see the discussion above Consult Healthcare Provider Management of the patient was discussed with: Hospitalist Please see the discussion above Lab Data MDM Lab Attestation statement: I reviewed the patient's lab results. Please see the discussion above 08/22/23 12:17 08/22/23 12:17 Labs: Lab Results 08/22/23 08/22/23 08/22/23 Range/Units 11:53 12:17 13:24 WBC 7.4 (4.8-10.8) X10*3/uL RBC 3.73 L (4.20-5.50) X10*6/uL Hgb 10.8 L (12.0-16.0) g/dl Hct 33.0 L (37.0-47.0) % MCV 88.5 (80.0-98.0) fL MCH 29.0 (27.0-33.0) pg MCHC 32.7 (31.0-35.0) g/dl RDW 14.2 (11.0-16.0) % Plt Count 146 L D (160-400) X10*3/uL MPV 10.7 (9.4-12.3) fL Immature Gran % (Auto) 0.1 (0.0-0.4) % Neut % (Auto) 63.2 (45-73) % Lymph % (Auto) 28.0 (20-40) % [place] % (Auto) 8.1 (2-11) % Eos % (Auto) 0.3 (0-4) % Baso % (Auto) 0.3 (0-2) % Lymph # (Auto) 2.1 (1.2-4.9) X10*3/uL [place] # (Auto) 0.6 (0.1-1.2) X10*3/uL Eos # (Auto) 0.0 (0.0-0.4) X10*3/uL Baso # (Auto) 0.0 (0.0-0.2) X10*3/uL Abs Immat Gran (auto) 0.01 (0.00-0.03) X10*3/uL Absolute Neuts (auto) 4.7 (2.0-8.3) x10*3/uL Absolute Nucleated RBC 0.000 (0.0-0.012) X10*3/uL Nucleated RBC % (auto) 0.0 (0.0-0.2) /100WBC Sodium 133 L (135-145) mmol/L Potassium 4.2 (3.3-5.1) mmol/L Chloride 96 (96-108) mmol/L Carbon Dioxide 22 (22-29) mmol/L Anion Gap 19 (12-20) BUN 25 H (9-16) mg/dL Creatinine 1.73 H (0.5-1.4) mg/dL Estim Creat Clear Calc 45.2 Estimated GFR 31 Random Glucose 205 H (60-115) mg/dL Calcium 10.2 D (8.4-10.2) mg/dL Total Bilirubin 0.2 (0.0-1.0) mg/dL AST 37 H (5-31) U/L ALT 39 H (0-31) U/L Alkaline Phosphatase 174 H (39-117) U/L Total Protein 9.1 H (6.5-8.0) g/dL Albumin 4.6 (3.5-5.0) g/dL TSH 78.01 H (0.32-4.0) uIU/mL Free T4 0.64 L (0.71-1.85) ng/dL Urine Color Yellow Urine Appearance Turbid Urine pH 5.0 (5.0-9.0) Ur Specific [place] 1.015 (1.005-1.025) Urine Protein 100 (2+) H (Neg-Trace) mg/dL Urine Glucose (UA) Negative (Negative) mg/dL Urine Ketones Trace (Negative) mg/dL Urine Blood Moderate (2+) H (Negative) Urine Nitrite Negative (Negative) Ur Leukocyte Esterase Large (3+) H (Negative) Urine RBC 0-2 (0-2) /HPF Urine WBC >50 H (0-5) /HPF Ur Squamous Epith Cells 3-5 (0-2) /HPF Urine Bacteria 2+ (None Seen) Hyaline Casts 11-20 (0-2) /LPF Influenza Type A (PCR) NEGATIVE (Negative) Influenza Type B (PCR) NEGATIVE (Negative) RSV RNA Qual (PCR) NEGATIVE (Negative) SARS-CoV-2 RNA (RT-PCR) NEGATIVE (Negative) External Record Review External record reviewed: Outpatient record, Prior outpatient labs and Prior outpatient radiology Chronic Conditions Patient?s care impacted by: Diabetes and Other TBI Critical Care Time Critical Care Time Critical Care Time: Yes Total Critical Care Time: 60 Attestation: I personally attest to this time spent taking care of the patient. Discharge Plan Discharge Clinical Impression: UTI (urinary tract infection), MARIBEL (acute kidney injury), Hypothyroid Patient Disposition: Admitted As Inpatient Prescriptions: No Action quetiapine 25 mg Tablet 25 mg PO BID oxcarbazepine [Trileptal] 150 mg Tablet 150 mg PO DAILY sennosides [senna] 8.6 mg Tablet 8.6 mg PO DAILY PRN (Reason: Constipation) acetaminophen 325 mg Tablet 650 mg PO Q6H PRN (Reason: Pain) gabapentin 600 mg Tablet 600 mg PO TID haloperidol 5 mg Tablet 5 mg PO BID atorvastatin 10 mg Tablet 10 mg PO BEDTIME phenytoin sodium extended 200 mg Capsule 200 mg PO BID oxcarbazepine [Trileptal] 300 mg Tablet 300 mg PO BEDTIME guaifenesin 100 mg/5 mL Liquid 200 mg PO Q4H PRN (Reason: Cough) insulin aspart U-100 [Novolog U-100 Insulin aspart] 100 unit/mL Solution 1 sliding scale dose SUBCUT USEASDIRECTD Protocol: Insulin Correction Scale Less than or equal to 110 ---- Give (units): 0 111 to 150 Give (units): 0 151 to 200 Give (units): 2 201 to 250 Give (units): 4 251 to 300 Give (units): 6 301 to 350 Give (units): 8 Greater than 350 Give (units): 10 Call MD if Blood Glucose > : 350 metformin 1,000 mg Tablet 1,000 mg PO BID levothyroxine 150 mcg Tablet 150 mcg PO DAILY@0600 haloperidol 10 mg Tablet 10 mg PO BID benztropine 1 mg Tablet 1 mg PO BID Fleet Enema 19-7 gram/118 mL Enema 118 ml NM DAILY PRN (Reason: Constipation) docusate sodium 100 mg Capsule 100 mg PO BID hydroxyzine HCl 25 mg Tablet 25 mg PO BID ibuprofen 600 mg Tablet 600 mg PO Q8H PRN (Reason: Pain) levetiracetam 1,000 mg Tablet 1,000 mg PO BID calcium carbonate-vitamin D3 [Calcium 600 + D(3)] 600 mg-10 mcg (400 unit) Tablet 2 tab PO DAILY cholecalciferol (vitamin D3) 1,250 mcg (50,000 unit) Capsule 1,250 mcg PO MO@0900 ferrous sulfate 324 mg (65 mg iron) Tablet,Delayed Release (Dr/Ec) 324 mg PO DAILY glucagon HCl [Glucagon (HCl) Emergency Kit] 1 mg Recon Soln 1 mg SUBCUT Q15M PRN (Reason: Hypoglycemia) Rx Instructions: until target blood sugar attained cefuroxime axetil 500 mg tablet 500 mg PO BID Qty: 10 0RF insulin glargine [Lantus Solostar U-100 Insulin] 100 unit/mL (3 mL) Insulin Pen 30 unit SUBCUT BEDTIME Qty: 15 0RF mirtazapine 7.5 mg Tablet 7.5 mg PO BEDTIME Qty: 30 0RF
[2023-08-22 14:25] VITALS: BP 122/69; PULSE 75; RESP 19; TEMP 36.4; O2SAT 99
--- NOTE | 2023-08-22 14:51 | PHA.MEDREC ---
Pharmacy Consult ? Medication Reconciliation Pharmacy has completed the medication reconciliation. Patient came [facility] with med list. Fina Stephens ,YeD
[2023-08-22 16:29] VITALS: BP 143/88; PULSE 80; RESP 18; TEMP 36.1; O2SAT 100
--- NOTE | 2023-08-22 16:51 | PM.IMHP ---
History of Present Illness Date of Service: 08/22/23 Chief Complaint: MARIBEL, UTI 52yo F long-term resident of [facility] with hx TBI, hypothyroidism, DM2, seizure disorder, prior ESBL UTI. Found to have markedly elevated TSH due to incorrect administration of levothyroxine [was getting it with meals]. In the ED, she was found to have MARIBEL with SCr 1.73, baseline 0.92. This prompted request for admission. Also noted to have pyuria concerning for UTI. She was given IV fluids and ceftriaxone. She is a poor historian but denies fever, chills, cold intolerance, dyspnea, chest pain, abd discomfort, nausea, vomiting, or urinary symptoms. Review of Systems Review of Systems: Yes all other systems are reviewed and are negative [facility], LAT[facility] Medical History Adjustment reaction with mixed disturbance of emotions and conduct Anxiety Mood disorder Leiomyoma of body of uterus Preglaucoma Presbyopia UTI (urinary tract infection) Hypothermia Long QT syndrome Sepsis COVID-19 Cystitis Hyperkalemia ESBL (extended spectrum beta-lactamase) producing bacteria infection Essential (primary) hypertension Diabetic retinopathy Anxiety Mood disorder Dementia Subarachnoid hemorrhage following injury TBI (traumatic brain injury) Unspecified dementia with behavioral disturbance Seizure disorder Hypothyroid Hyperlipidemia Diabetes Family History Mother Breast cancer Social History Household Members: Other Housing: Assisted Do you presently have visiting nurse or other home services: No Alcohol intake: never Patient Tobacco Use Status: Never used Tobacco Advance Directives Date on File: 03/23/21 service: No Current occupational status: disabled Meds Allergies Allergy/AdvReac Type Severity Reaction Status Date / Time chlorpromazine Allergy Intermediate HIVES Verified 03/27/23 09:55 [CHLORPROMAZINE] Active Medications: Current Medications Atorvastatin Calcium (Atorvastatin Calcium 10 Mg Tablet) 10 mg PO BEDTIME TOM Benztropine Mesylate (Benztropine Mesylate 1 Mg Tablet) 1 mg PO BID TOM Calcium Carbonate/Cholecalciferol (Calcium + Vitamin D 250 Mg Tablet) 500 mg PO DAILY [facility] Dextrose (Dextrose 50 % 25 Gm/50 Ml Syringe) 25 gm IVPUSH Q15M PRN; Protocol PRN Reason: per Hypoglycemia Standing Ord. Docusate Sodium (Docusate Sodium 100 Mg Capsule) 100 mg PO BID [facility] Ferrous Sulfate (Ferrous Sulfate 324 Mg Tablet.Dr) 324 mg PO DAILY [facility] Gabapentin (Gabapentin 600 Mg Tablet) 600 mg PO TID [facility] Glucose (Glucose Gel 15 Gm Gel..Gram.) 15 gm PO Q15M PRN; Protocol PRN Reason: per Hypoglycemia Standing Ord. Guaifenesin (Guaifenesin 100 Mg/5 Ml Liquid) 10 ml PO Q4H PRN PRN Reason: Cough Haloperidol (Haloperidol 5 Mg Tablet) 5 mg PO BID TOM Haloperidol (Haloperidol 5 Mg Tablet) 10 mg PO BID [facility] Hydroxyzine HCl (Hydroxyzine Hcl 25 Mg Tablet) 25 mg PO BID [facility] Meropenem 1 gm/ Sodium (Chloride) 100 mls @ 200 mls/hr IV Q8H [facility] Sodium Chloride (Ns) 1,000 mls @ 125 mls/hr IVCONT .Q8H [facility] Insulin Glargine (Insulin Glargine,Hum.Rec.Anlog 100 Unit/Ml 10 Ml Vial) 10 unit SUBCUT BEDTIME [facility] Insulin Human Lispro (Insulin Lispro 100 Unit/Ml 3 Ml Vial) 0 unit SUBCUT QIDACHS [facility]; Protocol Levetiracetam (Levetiracetam 1,000 Mg Tablet) 1,000 mg PO BID [facility] Levothyroxine Sodium (Levothyroxine Sodium 100 Mcg Tablet) 100 mcg PO DAILY@0600 [facility] Loperamide HCl (Loperamide Hcl 2 Mg Capsule) 2 mg PO Q6H PRN PRN Reason: Loose Stool Oxcarbazepine (Oxcarbazepine 150 Mg Tablet) 150 mg PO DAILY [facility] Oxcarbazepine (Oxcarbazepine 300 Mg Tablet) 300 mg PO BEDTIME [facility] Phenytoin (Phenytoin Chewable 50 Mg Tab.Chew) 50 mg PO SUTUTHSA@0900,2100 [facility] Phenytoin Sodium (Phenytoin Sodium Extended 100 Mg Capsule) 100 mg PO SUTUTHSA@0900,2100 [facility] Phenytoin Sodium (Phenytoin Sodium Extended 100 Mg Capsule) 200 mg PO MOWEFR@0900,2100 [facility] Quetiapine Fumarate (Quetiapine Fumarate 25 Mg Tablet) 25 mg PO BEDTIME [facility] Senna (Sennosides 8.6 Mg Tablet) 8.6 mg PO DAILY PRN PRN Reason: Constipation Sodium Biphosphate/Sodium Phosphate (Sodium Phosphate,[place]-Dibasic 133 Ml Enema) 118 ml [place] DAILY PRN PRN Reason: Constipation Vitamin D (Cholecalciferol (Vitamin D3) 25 Mcg Tablet) 50 mcg PO DAILY [facility] Home Medications Medication Instructions Recorded Confirmed Last Taken Type acetaminophen 325 mg tablet 650 mg PO Q6H PRN Pain 10/29/22 08/22/23 Unknown History atorvastatin 10 mg tablet 10 mg PO BEDTIME 10/29/22 08/22/23 Unknown History benztropine 1 mg tablet 1 mg PO BID 10/29/22 08/22/23 Unknown History calcium carbonate 600 mg-vitamin 2 tab PO DAILY 10/29/22 08/22/23 Unknown History D3 10 mcg (400 unit) tablet (Calcium 600 + D(3)) cholecalciferol (vitamin D3) 1,250 1,250 mcg PO MO@0900 10/29/22 08/22/23 Unknown History mcg (50,000 unit) capsule docusate sodium 100 mg capsule 100 mg PO BID 10/29/22 08/22/23 Unknown History ferrous sulfate 324 mg (65 mg 324 mg PO DAILY 10/29/22 08/22/23 Unknown History iron) tablet,delayed release gabapentin 600 mg tablet 600 mg PO TID 10/29/22 08/22/23 Unknown History guaifenesin 100 mg/5 mL oral liquid 200 mg PO Q4H PRN Cough 10/29/22 08/22/23 Unknown History haloperidol 10 mg tablet 10 mg PO BID 10/29/22 08/22/23 Unknown History haloperidol 5 mg tablet 5 mg PO BID 10/29/22 08/22/23 Unknown History hydroxyzine HCl 25 mg tablet 25 mg PO BID 10/29/22 08/22/23 Unknown History ibuprofen 600 mg tablet 600 mg PO Q8H PRN Pain 10/29/22 08/22/23 Unknown History insulin aspart U-100 100 unit/mL 1 sliding scale dose subcut 10/29/22 08/22/23 Unknown History subcutaneous solution (Novolog USEASDIRECTD U-100 Insulin aspart) levetiracetam 1,000 mg tablet 1,000 mg PO BID 10/29/22 08/22/23 Unknown History metformin 1,000 mg tablet 1,000 mg PO BID 10/29/22 08/22/23 Unknown History oxcarbazepine 150 mg tablet 150 mg PO DAILY 10/29/22 08/22/23 Unknown History (Trileptal) oxcarbazepine 300 mg tablet 300 mg PO BEDTIME 10/29/22 08/22/23 Unknown History (Trileptal) phenytoin sodium extended 200 mg 200 mg PO MOWEFR@0900,2100 10/29/22 08/22/23 Unknown History capsule quetiapine 25 mg tablet 25 mg PO BEDTIME 10/29/22 08/22/23 Unknown History sennosides 8.6 mg tablet (senna) 8.6 mg PO DAILY PRN Constipation 10/29/22 08/22/23 Unknown History sodium phosphates 19 gram-7 118 ml [place] DAILY PRN Constipation 10/29/22 08/22/23 Unknown History gram/118 mL enema (Fleet Enema) cranberry fruit 450 mg tablet 450 mg PO DAILY 08/22/23 08/22/23 Unknown History (cranberry) insulin glargine 100 unit/mL (3 10 unit subcut BEDTIME 08/22/23 08/22/23 Unknown History mL) subcutaneous pen (Lantus Solostar U-100 Insulin) levothyroxine 88 mcg tablet 88 mcg PO DAILY@0600 08/22/23 08/22/23 Unknown History loperamide 2 mg capsule 2 mg PO Q6H PRN Loose Stool 08/22/23 08/22/23 Unknown History ondansetron 4 mg disintegrating 4 mg PO Q6H PRN Nausea And Vomiting 08/22/23 08/22/23 Unknown History tablet phenytoin 50 mg chewable tablet 50 mg PO SUTUTHSA@0900,209908/22/23 08/22/23 Unknown History phenytoin sodium extended 100 mg 100 mg PO SUTUTHSA@0900,2100 08/22/23 08/22/23 Unknown History capsule Physical Exam Vital Signs and Narrative: Vital Signs: Last Vital Signs Temp 96.9 F 08/22/23 16:29 Pulse 80 08/22/23 16:29 Resp 18 08/22/23 16:29 BP 143/88 H 08/22/23 16:29 Pulse Ox 100 08/22/23 16:29 O2 Del Method Room Air 08/22/23 16:29 BMI result Body Mass Index 29.8 Gen: in no acute distress HEENT: sclera anicteric, moist mucus membranes Neck: supple Lungs: clear to auscultation bilaterally Heart: regular rate and rhythm, no murmurs Abd: soft, non-tender, non-distended Ext: no edema Skin: warm/well-perfused Neuro: alert, moving all extremities Psych: limited insight Results Labs 08/22/23 12:17 08/22/23 12:17 Labs: Laboratory Results - last 24 hr 08/22/23 08/22/23 08/22/23 11:53 12:17 13:24 MCV 88.5 MCH 29.0 MCHC 32.7 RDW 14.2 Plt Count 146 L D MPV 10.7 Immature Gran % (Auto) 0.1 Neut % (Auto) 63.2 Lymph % (Auto) 28.0 Boundary % (Auto) 8.1 Eos % (Auto) 0.3 Baso % (Auto) 0.3 Lymph # (Auto) 2.1 [place] # (Auto) 0.6 Eos # (Auto) 0.0 Baso # (Auto) 0.0 Abs Immat Gran (auto) 0.01 Absolute Neuts (auto) 4.7 Absolute Nucleated RBC 0.000 Nucleated RBC % (auto) 0.0 Anion Gap 19 Estim Creat Clear Calc 45.2 Estimated GFR 31 POC Glucose Random Glucose 205 H Lactic Acid Calcium 10.2 D Total Bilirubin 0.2 AST 37 H ALT 39 H Alkaline Phosphatase 174 H Total Protein 9.1 H Albumin 4.6 TSH 78.01 H Free T4 0.64 L Urine Color Yellow Urine Appearance Turbid Urine pH 5.0 Ur Specific [place] 1.015 Urine Protein 100 (2+) H Urine Glucose (UA) Negative Urine Ketones Trace Urine Blood Moderate (2+) H Urine Nitrite Negative Ur Leukocyte Esterase Large (3+) H Urine RBC 0-2 Urine WBC >50 H Ur Squamous Epith Cells 3-5 Urine Bacteria 2+ Hyaline Casts 11-20 Influenza Type A (PCR) NEGATIVE Influenza Type B (PCR) NEGATIVE RSV RNA Qual (PCR) NEGATIVE SARS-CoV-2 RNA (RT-PCR) NEGATIVE 08/22/23 08/22/23 15:06 15:56 MCV MCH MCHC RDW Plt Count MPV Immature Gran % (Auto) Neut % (Auto) Lymph % (Auto) [place] % (Auto) Eos % (Auto) Baso % (Auto) Lymph # (Auto) [place] # (Auto) Eos # (Auto) Baso # (Auto) Abs Immat Gran (auto) Absolute Neuts (auto) Absolute Nucleated RBC Nucleated RBC % (auto) Anion Gap Estim Creat Clear Calc Estimated GFR POC Glucose 179 H Random Glucose Lactic Acid 1.4 Calcium Total Bilirubin AST ALT Alkaline Phosphatase Total Protein Albumin TSH Free T4 Urine Color Urine Appearance Urine pH Ur Specific [place] Urine Protein Urine Glucose (UA) Urine Ketones Urine Blood Urine Nitrite Ur Leukocyte Esterase Urine RBC Urine WBC Ur Squamous Epith Cells Urine Bacteria Hyaline Casts Influenza Type A (PCR) Influenza Type B (PCR) RSV RNA Qual (PCR) SARS-CoV-2 RNA (RT-PCR) Assessment and Plan (1) MARIBEL (acute kidney injury): Status: Acute (2) Hypothyroid: Status: Acute Plan 52yo F long-term resident of [facility] with hx TBI, hypothyroidism, DM2, seizure disorder, prior ESBL UTI found to have MARIBEL, UTI. Also severe hypothyroidism but not in myxedema coma. MARIBEL - suspect prerenal; admit to M/S; check FENa; give IV fluids; avoid nephrotoxins; recheck BMP in AM UTI, hx ESBl - meropenem, follow UCx + BCx, ID consult sz disorder - continue levetiracetam + phenytoin + oxcarbazepine hypothyroidism - undertrated; will increase dose to 100 mcg/d and give at 6am separate from food; will need to recheck TSH in 4-6 wk DM2 - hold MTF; give basal-bolus insulin mood disorder - continue oxcarbazepine + quetiapine + haloperidol + hydroxyzine + benztropine HLD - continue statin VTE ppx - SCDs dispo - eventual return to [facility] code status - full I anticipate that the patient will stay at least 2 midnights as an inpatient in the hospital due to the above reasons. It is neither reasonable nor safe to care for them in a less acute setting. Quality Stroke Does the patient have a stroke diagnosis?: No VTE Prior VTE?: No VTE Risk Level:: Medical - moderate - high VTE Device Contraindication: N/A - Device Ordered VTE Drug Contraindication: N/A - Med Ordered
--- NOTE | 2023-08-22 17:06 | PC.NURSE ---
delay in abx administration d/t no access. pt difficulty stick, multiple attempts by RNs, provider at bedside for u/s IV access.
--- NOTE | 2023-08-22 17:15 | PC.NURSE ---
RN-RN report given to Overflow
[2023-08-22 20:00] VITALS: BP 142/76; PULSE 77; RESP 16; TEMP 36.5; O2SAT 100
[2023-08-23 04:00] VITALS: BP 115/67; PULSE 63; RESP 16; TEMP 36; O2SAT 100
[2023-08-23 07:35] VITALS: BP 151/77; PULSE 85; RESP 20; TEMP 36.1; O2SAT 100
--- NOTE | 2023-08-23 11:47 | HO.PM.IMPN ---
Subjective Subjective Date of Service: 08/23/23 Interval History: Poor historian but denies any abd pain or N/V Review of Systems Review of Systems: Yes all other systems are reviewed and are negative Physical Exam Vital Signs: Vital Signs: Last Vital Signs Temp 97.0 F 08/23/23 07:35 Pulse 85 08/23/23 07:35 Resp 20 08/23/23 07:35 BP 151/77 H 08/23/23 07:35 Pulse Ox 100 08/23/23 07:35 O2 Del Method Room Air 08/23/23 07:35 BMI result Body Mass Index 29.8 Gen: in no acute distress HEENT: sclera anicteric, moist mucus membranes Neck: supple Lungs: clear to auscultation bilaterally Heart: regular rate and rhythm, no murmurs Abd: soft, non-tender, non-distended Ext: no edema Skin: warm/well-perfused Neuro: alert, moving all extremities Psych: limited insight Objective Data Active Medications Acetaminophen (Acetaminophen 325 Mg Tablet) 650 mg PO Q6H PRN PRN Reason: Pain, Mild (Pain Scale 1-3) Atorvastatin Calcium (Atorvastatin Calcium 10 Mg Tablet) 10 mg PO BEDTIME [facility] Last Admin: 08/22/23 20:18 Dose: 10 mg Documented By: BLANQUITA Benztropine Mesylate (Benztropine Mesylate 1 Mg Tablet) 1 mg PO BID [facility] Last Admin: 08/23/23 08:13 Dose: 1 mg Documented By: PAU Calcium Carbonate/Cholecalciferol (Calcium + Vitamin D 250 Mg Tablet) 500 mg PO DAILY [facility] Last Admin: 08/23/23 08:14 Dose: 500 mg Documented By: PAU Dextrose (Dextrose 50 % 25 Gm/50 Ml Syringe) 25 gm IVPUSH Q15M PRN; Protocol PRN Reason: per Hypoglycemia Standing Ord. Last Admin: 08/23/23 08:10 Dose: 25 gm Documented By: PAU Docusate Sodium (Docusate Sodium 100 Mg Capsule) 100 mg PO BID [facility] Last Admin: 08/23/23 08:14 Dose: 100 mg Documented By: PAU Ferrous Sulfate (Ferrous Sulfate 324 Mg Tablet.) 324 mg PO DAILY [facility] Last Admin: 08/23/23 08:15 Dose: 324 mg Documented By: PAU Gabapentin (Gabapentin 600 Mg Tablet) 600 mg PO TID [facility] Last Admin: 08/23/23 08:14 Dose: 600 mg Documented By: PAU Glucose (Glucose Gel 15 Gm Gel..Gram.) 15 gm PO Q15M PRN; Protocol PRN Reason: per Hypoglycemia Standing Ord. Guaifenesin (Guaifenesin 100 Mg/5 Ml Liquid) 10 ml PO Q4H PRN PRN Reason: Cough Haloperidol (Haloperidol 5 Mg Tablet) 5 mg PO BID [facility] Last Admin: 08/23/23 08:15 Dose: 5 mg Documented By: PAU Haloperidol (Haloperidol 5 Mg Tablet) 10 mg PO BID [facility] Last Admin: 08/23/23 08:15 Dose: 10 mg Documented By: PAU Hydroxyzine HCl (Hydroxyzine Hcl 25 Mg Tablet) 25 mg PO BID [facility] Last Admin: 08/23/23 08:16 Dose: 25 mg Documented By: PAU Meropenem 1 gm/ Sodium (Chloride) 100 mls @ 200 mls/hr IV Q8H [facility] Last Infusion: 08/23/23 09:21 Dose: Infused Documented By: PAU Sodium Chloride (Ns) 1,000 mls @ 125 mls/hr IVCONT .Q8H [facility] Last Admin: 08/23/23 08:20 Dose: 125 mls/hr Documented By: PAU Insulin Human Lispro (Insulin Lispro 100 Unit/Ml 3 Ml Vial) 0 unit SUBCUT QIDACHS [facility]; Protocol Last Admin: 08/23/23 08:16 Dose: Not Given Documented By: PAU Non-Admin Reason: No Insulin Coverage Levetiracetam (Levetiracetam 1,000 Mg Tablet) 1,000 mg PO BID [facility] Last Admin: 08/23/23 08:16 Dose: 1,000 mg Documented By: PAU Levothyroxine Sodium (Levothyroxine Sodium 100 Mcg Tablet) 100 mcg PO DAILY@0600 [facility] Last Admin: 08/23/23 05:14 Dose: 100 mcg Documented By: DO Loperamide HCl (Loperamide Hcl 2 Mg Capsule) 2 mg PO Q6H PRN PRN Reason: Loose Stool Ondansetron HCl (Ondansetron Hcl 4 Mg/2 Ml Vial) 4 mg IVPUSH Q4H PRN PRN Reason: Nausea and Vomiting Oxcarbazepine (Oxcarbazepine 150 Mg Tablet) 150 mg PO DAILY [facility] Last Admin: 08/23/23 08:15 Dose: 150 mg Documented By: APU Oxcarbazepine (Oxcarbazepine 300 Mg Tablet) 300 mg PO BEDTIME [facility] Last Admin: 08/22/23 20:18 Dose: 300 mg Documented By: BLANQUITA Phenytoin (Phenytoin Chewable 50 Mg Tab.Chew) 50 mg PO SUTUTHSA@899,2099 [facility] Last Admin: 08/22/23 20:18 Dose: 50 mg Documented By: BLANQUITA Phenytoin Sodium (Phenytoin Sodium Extended 100 Mg Capsule) 100 mg PO SUTUTHSA@899,2099 [facility] Last Admin: 08/22/23 20:18 Dose: 100 mg Documented By: BLANQUITA Phenytoin Sodium (Phenytoin Sodium Extended 100 Mg Capsule) 200 mg PO MOWEFR@899,2099 [facility] Last Admin: 08/23/23 08:19 Dose: 200 mg Documented By: PAU Quetiapine Fumarate (Quetiapine Fumarate 25 Mg Tablet) 25 mg PO BEDTIME [facility] Last Admin: 08/22/23 20:17 Dose: 25 mg Documented By: BLANQUITA Senna (Sennosides 8.6 Mg Tablet) 8.6 mg PO DAILY PRN PRN Reason: Constipation Sodium Biphosphate/Sodium Phosphate (Sodium Phosphate,[place]-Dibasic 133 Ml Enema) 118 ml [place] DAILY PRN PRN Reason: Constipation Sodium Chloride (0.9 % Sodium Chloride Flush 3 Ml Syringe) 3 ml IVFLUSH QSHIFT [facility] Last Admin: 08/23/23 08:16 Dose: Not Given Documented By: PAU Non-Admin Reason: IV Running Vitamin D (Cholecalciferol (Vitamin D3) 25 Mcg Tablet) 50 mcg PO DAILY [facility] Last Admin: 08/23/23 08:14 Dose: 50 mcg Documented By: PAU Labs 08/22/23 12:17 08/23/23 10:30 Labs: Laboratory Results - last 24 hr 08/22/23 08/22/23 08/22/23 11:53 12:17 13:24 MCV 88.5 MCH 29.0 MCHC 32.7 RDW 14.2 Plt Count 146 L D MPV 10.7 Immature Gran % (Auto) 0.1 Neut % (Auto) 63.2 Lymph % (Auto) 28.0 [place] % (Auto) 8.1 Eos % (Auto) 0.3 Baso % (Auto) 0.3 Lymph # (Auto) 2.1 [place] # (Auto) 0.6 Eos # (Auto) 0.0 Baso # (Auto) 0.0 Abs Immat Gran (auto) 0.01 Absolute Neuts (auto) 4.7 Absolute Nucleated RBC 0.000 Nucleated RBC % (auto) 0.0 Anion Gap 19 Estim Creat Clear Calc 45.2 Estimated GFR 31 POC Glucose Random Glucose 205 H Lactic Acid Calcium 10.2 D Total Bilirubin 0.2 AST 37 H ALT 39 H Alkaline Phosphatase 174 H Total Protein 9.1 H Albumin 4.6 TSH 78.01 H Free T4 0.64 L Urine Color Yellow Urine Appearance Turbid Urine pH 5.0 Ur Specific [place] 1.015 Urine Protein 100 (2+) H Urine Glucose (UA) Negative Urine Ketones Trace Urine Blood Moderate (2+) H Urine Nitrite Negative Ur Leukocyte Esterase Large (3+) H Urine RBC 0-2 Urine WBC >50 H Ur Squamous Epith Cells 3-5 Urine Bacteria 2+ Hyaline Casts 11-20 Ur Random Sodium 22.0 Urine Creatinine 140.85 Influenza Type A (PCR) NEGATIVE Influenza Type B (PCR) NEGATIVE RSV RNA Qual (PCR) NEGATIVE SARS-CoV-2 RNA (RT-PCR) NEGATIVE 08/22/23 08/22/23 08/22/23 15:06 15:56 18:19 MCV MCH MCHC RDW Plt Count MPV Immature Gran % (Auto) Neut % (Auto) Lymph % (Auto) [place] % (Auto) Eos % (Auto) Baso % (Auto) Lymph # (Auto) [place] # (Auto) Eos # (Auto) Baso # (Auto) Abs Immat Gran (auto) Absolute Neuts (auto) Absolute Nucleated RBC Nucleated RBC % (auto) Anion Gap Estim Creat Clear Calc Estimated GFR POC Glucose 179 H 166 H Random Glucose Lactic Acid 1.4 Calcium Total Bilirubin AST ALT Alkaline Phosphatase Total Protein Albumin TSH Free T4 Urine Color Urine Appearance Urine pH Ur Specific [place] Urine Protein Urine Glucose (UA) Urine Ketones Urine Blood Urine Nitrite Ur Leukocyte Esterase Urine RBC Urine WBC Ur Squamous Epith Cells Urine Bacteria Hyaline Casts Ur Random Sodium Urine Creatinine Influenza Type A (PCR) Influenza Type B (PCR) RSV RNA Qual (PCR) SARS-CoV-2 RNA (RT-PCR) 08/22/23 08/23/23 08/23/23 20:43 07:46 08:02 MCV MCH MCHC RDW Plt Count MPV Immature Gran % (Auto) Neut % (Auto) Lymph % (Auto) [place] % (Auto) Eos % (Auto) Baso % (Auto) Lymph # (Auto) [place] # (Auto) Eos # (Auto) Baso # (Auto) Abs Immat Gran (auto) Absolute Neuts (auto) Absolute Nucleated RBC Nucleated RBC % (auto) Anion Gap Estim Creat Clear Calc Estimated GFR POC Glucose 178 H 41 L* 31 L* Random Glucose Lactic Acid Calcium Total Bilirubin AST ALT Alkaline Phosphatase Total Protein Albumin TSH Free T4 Urine Color Urine Appearance Urine pH Ur Specific [place] Urine Protein Urine Glucose (UA) Urine Ketones Urine Blood Urine Nitrite Ur Leukocyte Esterase Urine RBC Urine WBC Ur Squamous Epith Cells Urine Bacteria Hyaline Casts Ur Random Sodium Urine Creatinine Influenza Type A (PCR) Influenza Type B (PCR) RSV RNA Qual (PCR) SARS-CoV-2 RNA (RT-PCR) 08/23/23 08/23/23 08/23/23 09:31 10:30 11:32 MCV MCH MCHC RDW Plt Count MPV Immature Gran % (Auto) Neut % (Auto) Lymph % (Auto) [place] % (Auto) Eos % (Auto) Baso % (Auto) Lymph # (Auto) [place] # (Auto) Eos # (Auto) Baso # (Auto) Abs Immat Gran (auto) Absolute Neuts (auto) Absolute Nucleated RBC Nucleated RBC % (auto) Anion Gap 15 Estim Creat Clear Calc 65.8 Estimated GFR 47 POC Glucose 165 H 249 H Random Glucose 273 H Lactic Acid Calcium 9.1 D Total Bilirubin AST ALT Alkaline Phosphatase Total Protein Albumin TSH Free T4 Urine Color Urine Appearance Urine pH Ur Specific [place] Urine Protein Urine Glucose (UA) Urine Ketones Urine Blood Urine Nitrite Ur Leukocyte Esterase Urine RBC Urine WBC Ur Squamous Epith Cells Urine Bacteria Hyaline Casts Ur Random Sodium Urine Creatinine Influenza Type A (PCR) Influenza Type B (PCR) RSV RNA Qual (PCR) SARS-CoV-2 RNA (RT-PCR) Microbiology Microbiology Results: Microbiology 08/22/23 Unknown Urine Culture - Preliminary Urine clean catch - Urine vasquez top Gram negative jamie Assessment and Plan (1) MARIBEL (acute kidney injury): Status: Acute Plan d2 52yo F long-term resident of [facility] with hx TBI, hypothyroidism, DM2, seizure disorder, prior ESBL UTI admitted for MARIBEL + UTI also severe hypothyroidism but not in myxedema coma. MARIBEL, prerenal - FENa 0.2% - MARIBEL resolved with IV fluids UTI, hx ESBL - meropenem 08/22-, follow UCx + BCx, ID consult sz disorder - continue levetiracetam + phenytoin + oxcarbazepine hypothyroidism, TSH 78.01 - undertreated due to coadministration with breakfast; will increase dose from 88 to 100 mcg/d and give at 6am separate from food; will need to recheck TSH in 4 wk DM2 with hypoglycemia - likely due to impaired renal clearance of glargine- will d/c glargine and just give correction-dose lispro; hold MTF mood disorder - continue oxcarbazepine + quetiapine + haloperidol + hydroxyzine + benztropine HLD - continue statin VTE ppx - SCDs dispo - eventual return to [facility] [place] [facility] In my clinical judgment, the patient requires continued inpatient hospitalization for the following reasons: IV ABX Total time managing care of this patient today: 35 minutes. Quality Stroke Does the patient have a stroke diagnosis?: No VTE Prior VTE?: No VTE Risk Level:: Medical - moderate - high VTE Device Contraindication: N/A - Device Ordered VTE Drug Contraindication: N/A - Med Ordered
--- NOTE | 2023-08-23 12:39 | MHC.CM.PN ---
Called number listed for HCP, not a working number. Interview conducted w/listed contact #2, Pt's daughter, accurate number listed: Pt is a LTC resident of [facility]. Plan is for Pt to return when MD indicates medically ready. CM to follow.
[2023-08-23 15:30] VITALS: BP 95/51; PULSE 62; RESP 20; TEMP 36.3; O2SAT 97
[2023-08-23 20:00] VITALS: BP 145/78; PULSE 69; RESP 18; TEMP 36.3; O2SAT 100
[2023-08-24 04:00] VITALS: BP 140/86; PULSE 61; RESP 16; TEMP 36.3; O2SAT 100
[2023-08-24 11:05] LABS: Anion Gap 15 (12-20); Blood Urea Nitrogen 14 mg/dL (9-16); Calcium 9.5 mg/dL (8.4-10.2); Carbon Dioxide 26 mmol/L (22-29); Chloride 97 mmol/L (96-108); Estimated Glomerular Filt Rate 56; Glucose Random 193 mg/dL (60-115); Potassium 3.6 mmol/L (3.3-5.1); Sodium 134 mmol/L (135-145)
[2023-08-24 15:56] VITALS: BP 120/72; PULSE 63; RESP 16; TEMP 35.8; O2SAT 100
--- NOTE | 2023-08-24 16:53 | HO.PM.IMPN ---
Subjective Subjective Date of Service: 08/25/23 Interval History: Denies urinary symptoms, complaining of discomfort at site of IV, and showing dark spots on both hands, no fevers, no chills, no other acute issues. Review of Systems All other system reviewed and negative, although patient is a poor historian. Physical Exam Vital Signs: Vital Signs: Last Vital Signs Temp 96.5 F L 08/24/23 15:56 Pulse 63 08/24/23 15:56 Resp 16 08/24/23 15:56 BP 120/72 08/24/23 15:56 Pulse Ox 100 08/24/23 15:56 O2 Del Method Room Air 08/24/23 04:00 BMI result Body Mass Index 29.8 Const: Other: Gen: Awake alert, sitting comfortably, in no acute distress HEENT: sclera anicteric, moist mucus membranes Neck: supple Lungs: clear to auscultation bilaterally Heart: regular rate and rhythm, no murmurs Abd: soft, non-tender, non-distended Ext: no edema Skin: warm/well-perfused, right upper extremity IV site, no induration, no redness, dark macular spots both upper extremity seems chronic Neuro: alert, moving all extremities Psych: limited insight Objective Data Active Medications Acetaminophen (Acetaminophen 325 Mg Tablet) 650 mg PO Q6H PRN PRN Reason: Pain, Mild (Pain Scale 1-3) Atorvastatin Calcium (Atorvastatin Calcium 10 Mg Tablet) 10 mg PO BEDTIME [facility] Last Admin: 08/23/23 21:22 Dose: 10 mg Documented By: ARLYN Benztropine Mesylate (Benztropine Mesylate 1 Mg Tablet) 1 mg PO BID [facility] Last Admin: 08/24/23 09:45 Dose: 1 mg Documented By: MARILOU Calcium Carbonate/Cholecalciferol (Calcium + Vitamin D 250 Mg Tablet) 500 mg PO DAILY [facility] Last Admin: 08/24/23 09:45 Dose: 500 mg Documented By: MARILOU Dextrose (Dextrose 50 % 25 Gm/50 Ml Syringe) 25 gm IVPUSH Q15M PRN; Protocol PRN Reason: per Hypoglycemia Standing Ord. Last Admin: 08/23/23 08:10 Dose: 25 gm Documented By: PAU Docusate Sodium (Docusate Sodium 100 Mg Capsule) 100 mg PO BID [facility] Last Admin: 08/24/23 09:45 Dose: 100 mg Documented By: MARILOU Ferrous Sulfate (Ferrous Sulfate 324 Mg Tablet.Dr) 324 mg PO DAILY [facility] Last Admin: 08/24/23 09:45 Dose: 324 mg Documented By: MARILOU Gabapentin (Gabapentin 600 Mg Tablet) 600 mg PO TID [facility] Last Admin: 08/24/23 14:19 Dose: 600 mg Documented By: MARILOU Glucose (Glucose Gel 15 Gm Gel..Gram.) 15 gm PO Q15M PRN; Protocol PRN Reason: per Hypoglycemia Standing Ord. Guaifenesin (Guaifenesin 100 Mg/5 Ml Liquid) 10 ml PO Q4H PRN PRN Reason: Cough Haloperidol (Haloperidol 5 Mg Tablet) 5 mg PO BID [facility] Last Admin: 08/24/23 09:45 Dose: 5 mg Documented By: MARILOU Haloperidol (Haloperidol 5 Mg Tablet) 10 mg PO BID [facility] Last Admin: 08/24/23 09:45 Dose: 10 mg Documented By: MARILOU Hydroxyzine HCl (Hydroxyzine Hcl 25 Mg Tablet) 25 mg PO BID [facility] Last Admin: 08/24/23 09:44 Dose: 25 mg Documented By: MARILOU Meropenem 1 gm/ Sodium (Chloride) 100 mls @ 200 mls/hr IV Q8H [facility] Last Admin: 08/24/23 16:22 Dose: 200 mls/hr Documented By: MARILOU Insulin Human Lispro (Insulin Lispro 100 Unit/Ml 3 Ml Vial) 0 unit SUBCUT QIDACHS [facility]; Protocol Last Admin: 08/24/23 16:22 Dose: 2 unit Documented By: MARILOU Levetiracetam (Levetiracetam 1,000 Mg Tablet) 1,000 mg PO BID [facility] Last Admin: 08/24/23 09:45 Dose: 1,000 mg Documented By: MARILOU Levothyroxine Sodium (Levothyroxine Sodium 100 Mcg Tablet) 100 mcg PO DAILY@0600 [facility] Last Admin: 08/24/23 05:43 Dose: 100 mcg Documented By: ARLYN Loperamide HCl (Loperamide Hcl 2 Mg Capsule) 2 mg PO Q6H PRN PRN Reason: Loose Stool Ondansetron HCl (Ondansetron Hcl 4 Mg/2 Ml Vial) 4 mg IVPUSH Q4H PRN PRN Reason: Nausea and Vomiting Oxcarbazepine (Oxcarbazepine 150 Mg Tablet) 150 mg PO DAILY [facility] Last Admin: 08/24/23 09:45 Dose: 150 mg Documented By: MARILOU Oxcarbazepine (Oxcarbazepine 300 Mg Tablet) 300 mg PO BEDTIME [facility] Last Admin: 08/23/23 21:23 Dose: 300 mg Documented By: ARLYN Phenytoin (Phenytoin Chewable 50 Mg Tab.Chew) 50 mg PO SUTUTHSA@899,2099 [facility] Last Admin: 08/24/23 09:45 Dose: 50 mg Documented By: MARILOU Phenytoin Sodium (Phenytoin Sodium Extended 100 Mg Capsule) 100 mg [facility]899,2099 [facility] Last Admin: 08/24/23 09:44 Dose: 100 mg Documented By: MARILOU Phenytoin Sodium (Phenytoin Sodium Extended 100 Mg Capsule) 200 mg PO MOWEFR@ [facility] Last Admin: 08/23/23 21:21 Dose: 200 mg Documented By: ARLYN Quetiapine Fumarate (Quetiapine Fumarate 25 Mg Tablet) 25 mg PO BEDTIME [facility] Last Admin: 08/23/23 21:22 Dose: 25 mg Documented By: ARLYN Senna (Sennosides 8.6 Mg Tablet) 8.6 mg PO DAILY PRN PRN Reason: Constipation Sodium Biphosphate/Sodium Phosphate (Sodium Phosphate,[place]-Dibasic 133 Ml Enema) 118 ml [place] DAILY PRN PRN Reason: Constipation Sodium Chloride (0.9 % Sodium Chloride Flush 3 Ml Syringe) 3 ml IVFLUSH QSHIFT [facility] Last Admin: 08/24/23 16:22 Dose: 3 ml Documented By: MARILOU Vitamin D (Cholecalciferol (Vitamin D3) 25 Mcg Tablet) 50 mcg PO DAILY [facility] Last Admin: 08/24/23 09:45 Dose: 50 mcg Documented By: MARILOU Labs 08/22/23 12:17 08/24/23 10:05 Labs: Laboratory Results - last 24 hr 08/23/23 08/24/23 08/24/23 20:31 07:53 10:05 Anion Gap 15 Estim Creat Clear Calc 76.0 Estimated GFR 56 POC Glucose 252 H 122 H Random Glucose 193 H Calcium 9.5 08/24/23 08/24/23 11:21 16:03 Anion Gap Estim Creat Clear Calc Estimated GFR POC Glucose 254 H 151 H Random Glucose Calcium Microbiology Microbiology Results: Microbiology 08/22/23 Unknown Urine Culture - Preliminary Urine clean catch - Urine vasquez top Escherichia coli 08/22/23 15:56 Blood Culture - Preliminary Blood - Venous No growth after 24 hours. 08/22/23 15:56 Blood Culture - Preliminary Blood - Venous No growth after 24 hours. Assessment and Plan (1) MARIBEL (acute kidney injury): Status: Acute Plan 52yo F long-term resident of [facility] with hx TBI, hypothyroidism, DM2, seizure disorder, prior ESBL UTI ,admitted for MARIBEL + UTI, also severe hypothyroidism but not in myxedema coma. MARIBEL, prerenal MARIBEL resolved with IV fluids UTI, hx ESBL - urine culture grew E coli sensitive to ertapenem, gentamicin nitrofurantoin and Bactrim, Continue IV meropenem started on 08/22-, blood cultures x2 negative , await ID input sz disorder - no seizures noted, continue seizure precautions, continue levetiracetam + phenytoin + oxcarbazepine hypothyroidism, TSH 78.01 - undertreated due to coadministration with breakfast, dose increased from 88 to 100 mcg/d and give at 6am separate from food; will need to recheck TSH in 6 wk DM2 with hypoglycemia- likely due to impaired renal clearance of glargine, since renal function normalized will place back on Lantus and continue correction-dose lispro; hold MTF mood disorder - continue oxcarbazepine + quetiapine + haloperidol + hydroxyzine + benztropine HLD - continue statin VTE ppx - SCDs dispo - eventual return to [facility] In my clinical judgment, the patient requires continued inpatient hospitalization for the following reasons: IV ABX Total time managing care of this patient today: 35 minutes. Quality Stroke Does the patient have a stroke diagnosis?: No VTE Prior VTE?: No VTE Risk Level:: Medical - moderate - high VTE Device Contraindication: N/A - Device Ordered VTE Drug Contraindication: N/A - Med Ordered
[2023-08-24 19:41] VITALS: BP 103/63; PULSE 63; RESP 19; TEMP 37; O2SAT 96
[2023-08-25 04:00] VITALS: BP 96/53; PULSE 63; RESP 16; TEMP 36.1; O2SAT 99
[2023-08-25 07:43] VITALS: BP 142/91; PULSE 54; RESP 16; TEMP 36.1; O2SAT 100
--- NOTE | 2023-08-25 14:00 | HO.PM.IMPN ---
Subjective Subjective Date of Service: 08/25/23 Interval History: Concern about elevated blood sugars, and dark spots on hands, denies urinary symptoms, no urgency ,no frequency, no fevers, no chills . Review of Systems All other system reviewed and negative. Physical Exam Vital Signs: Vital Signs: Last Vital Signs Temp 96.9 F 08/25/23 07:43 Pulse 54 08/25/23 07:43 Resp 16 08/25/23 07:43 BP 142/91 H 08/25/23 07:43 Pulse Ox 100 08/25/23 07:43 O2 Del Method Room Air 08/25/23 07:43 BMI result Body Mass Index 29.8 Const: Other: Gen: Awake alert, sitting comfortably, in no acute distress HEENT: sclera anicteric, moist mucus membranes Neck: supple Lungs: clear to auscultation bilaterally Heart: regular rate and rhythm, no murmurs Abd: soft, non-tender, non-distended Ext: no edema Skin: warm/well-perfused, right upper extremity IV site, no induration, no redness, dark macular spots both upper extremity seems chronic Neuro: alert, moving all extremities Psych: limited insight Objective Data Active Medications Acetaminophen (Acetaminophen 325 Mg Tablet) 650 mg PO Q6H PRN PRN Reason: Pain, Mild (Pain Scale 1-3) Atorvastatin Calcium (Atorvastatin Calcium 10 Mg Tablet) 10 mg PO BEDTIME [facility] Last Admin: 08/24/23 20:42 Dose: 10 mg Documented By: ARLYN Benztropine Mesylate (Benztropine Mesylate 1 Mg Tablet) 1 mg PO BID [facility] Last Admin: 08/25/23 08:06 Dose: 1 mg Documented By: MARILOU Calcium Carbonate/Cholecalciferol (Calcium + Vitamin D 250 Mg Tablet) 500 mg PO DAILY [facility] Last Admin: 08/25/23 08:06 Dose: 500 mg Documented By: MARILOU Dextrose (Dextrose 50 % 25 Gm/50 Ml Syringe) 25 gm IVPUSH Q15M PRN; Protocol PRN Reason: per Hypoglycemia Standing Ord. Last Admin: 08/23/23 08:10 Dose: 25 gm Documented By: PAU Docusate Sodium (Docusate Sodium 100 Mg Capsule) 100 mg PO BID [facility] Last Admin: 08/25/23 08:06 Dose: 100 mg Documented By: MARILOU Ferrous Sulfate (Ferrous Sulfate 324 Mg Tablet.) 324 mg PO DAILY [facility] Last Admin: 08/25/23 08:06 Dose: 324 mg Documented By: MARILOU Gabapentin (Gabapentin 600 Mg Tablet) 600 mg PO TID [facility] Last Admin: 08/25/23 08:06 Dose: 600 mg Documented By: MARILOU Glucose (Glucose Gel 15 Gm Gel..Gram.) 15 gm PO Q15M PRN; Protocol PRN Reason: per Hypoglycemia Standing Ord. Guaifenesin (Guaifenesin 100 Mg/5 Ml Liquid) 10 ml PO Q4H PRN PRN Reason: Cough Haloperidol (Haloperidol 5 Mg Tablet) 5 mg PO BID [facility] Last Admin: 08/25/23 08:06 Dose: 5 mg Documented By: MRAILOU Haloperidol (Haloperidol 5 Mg Tablet) 10 mg PO BID [facility] Last Admin: 08/25/23 08:06 Dose: 10 mg Documented By: MARILOU Hydroxyzine HCl (Hydroxyzine Hcl 25 Mg Tablet) 25 mg PO BID [facility] Last Admin: 08/25/23 08:06 Dose: 25 mg Documented By: MARILOU Meropenem 1 gm/ Sodium (Chloride) 100 mls @ 200 mls/hr IV Q8H [facility] Last Infusion: 08/25/23 08:35 Dose: Infused Documented By: MARILOU Insulin Glargine (Insulin Glargine,Hum.Rec.Anlog 100 Unit/Ml 10 Ml Vial) 10 unit SUBCUT BEDTIME [facility] Last Admin: 08/24/23 20:45 Dose: 10 unit Documented By: ARLYN Insulin Human Lispro (Insulin Lispro 100 Unit/Ml 3 Ml Vial) 0 unit SUBCUT QIDACHS [facility]; Protocol Last Admin: 08/25/23 12:04 Dose: 6 unit Documented By: MARILOU Levetiracetam (Levetiracetam 1,000 Mg Tablet) 1,000 mg PO BID [facility] Last Admin: 08/25/23 08:06 Dose: 1,000 mg Documented By: MARILOU Levothyroxine Sodium (Levothyroxine Sodium 100 Mcg Tablet) 100 mcg PO DAILY@0600 [facility] Last Admin: 08/25/23 05:30 Dose: 100 mcg Documented By: ARLYN Loperamide HCl (Loperamide Hcl 2 Mg Capsule) 2 mg PO Q6H PRN PRN Reason: Loose Stool Ondansetron HCl (Ondansetron Hcl 4 Mg/2 Ml Vial) 4 mg IVPUSH Q4H PRN PRN Reason: Nausea and Vomiting Oxcarbazepine (Oxcarbazepine 150 Mg Tablet) 150 mg PO DAILY [facility] Last Admin: 08/25/23 08:06 Dose: 150 mg Documented By: MARILOU Oxcarbazepine (Oxcarbazepine 300 Mg Tablet) 300 mg PO BEDTIME [facility] Last Admin: 08/24/23 20:42 Dose: 300 mg Documented By: ARLYN Phenytoin (Phenytoin Chewable 50 Mg Tab.Chew) 50 mg PO SUTUTHSA@0900,2100 [facility] Last Admin: 08/25/23 08:06 Dose: 50 mg Documented By: MARILOU Phenytoin Sodium (Phenytoin Sodium Extended 100 Mg Capsule) 100 mg PO SUTUTHSA@0900,2100 [facility] Last Admin: 08/25/23 08:05 Dose: 100 mg Documented By: MARILOU Phenytoin Sodium (Phenytoin Sodium Extended 100 Mg Capsule) 200 mg PO MOWEFR@0900,2100 [facility] Last Admin: 08/23/23 21:21 Dose: 200 mg Documented By: ARLYN Quetiapine Fumarate (Quetiapine Fumarate 25 Mg Tablet) 25 mg PO BEDTIME [facility] Last Admin: 08/24/23 20:42 Dose: 25 mg Documented By: ARLYN Senna (Sennosides 8.6 Mg Tablet) 8.6 mg PO DAILY PRN PRN Reason: Constipation Sodium Biphosphate/Sodium Phosphate (Sodium Phosphate,[place]-Dibasic 133 Ml Enema) 118 ml [place] DAILY PRN PRN Reason: Constipation Sodium Chloride (0.9 % Sodium Chloride Flush 3 Ml Syringe) 3 ml IVFLUSH QSHIFT [facility] Last Admin: 08/25/23 08:05 Dose: 3 ml Documented By: MARILOU Vitamin D (Cholecalciferol (Vitamin D3) 25 Mcg Tablet) 50 mcg PO DAILY [facility] Last Admin: 08/25/23 08:06 Dose: 50 mcg Documented By: MARILOU Labs 08/22/23 12:17 08/24/23 10:05 Labs: Laboratory Results - last 24 hr 08/24/23 08/24/23 08/25/23 16:03 20:19 07:47 POC Glucose 151 H 297 H 242 H 08/25/23 11:23 POC Glucose 283 H Microbiology Microbiology Results: Microbiology 08/22/23 Unknown Urine Culture - Final Urine clean catch - Urine vasquez top Escherichia coli 08/22/23 15:56 Blood Culture - Preliminary Blood - Venous No growth after 48 hours. 08/22/23 15:56 Blood Culture - Preliminary Blood - Venous No growth after 48 hours. Assessment and Plan (1) MARIBEL (acute kidney injury): Status: Acute Plan 52yo F long-term resident of [facility] with hx TBI, hypothyroidism, DM2, seizure disorder, prior ESBL UTI ,admitted for MARIBEL + UTI, also severe hypothyroidism but not in myxedema coma. MARIBEL, prerenal MARIBEL resolved ,s/p IV fluids UTI, hx ESBL - urine culture grew E coli sensitive to ertapenem, gentamicin nitrofurantoin and Bactrim, Continue IV meropenem started on 08/22-, blood cultures x2 negative , For will discuss duration of antibiotic with ID Sz disorder - no seizures noted, continue seizure precautions, continue levetiracetam + phenytoin + oxcarbazepine hypothyroidism, TSH 78.01 - undertreated due to coadministration with breakfast, dose increased from 88 to 100 mcg/d and give at 6am separate from food; will need to recheck TSH in 6 wk DM2 with hypoglycemia-hypoglycemia resolved, placed back on Lantus ,blood sugars elevated, will place on metformin 1000 mg b.i.d. follow blood sugars. mood disorder - continue oxcarbazepine + quetiapine + haloperidol + hydroxyzine + benztropine HLD - continue statin VTE ppx - SCDs dispo - eventual return to [facility] In my clinical judgment, the patient requires continued inpatient hospitalization for the following reasons: IV ABX Total time managing care of this patient today: 35 minutes. Quality Stroke Does the patient have a stroke diagnosis?: No VTE Prior VTE?: No VTE Risk Level:: Medical - moderate - high VTE Device Contraindication: N/A - Device Ordered VTE Drug Contraindication: N/A - Med Ordered
[2023-08-25 16:00] VITALS: BP 140/75; PULSE 51; RESP 16; TEMP 36; O2SAT 99
--- NOTE | 2023-08-25 18:42 | PM.EVENT ---
Event Note Date of Service: 08/25/23 Event Note: [email or web address] multiple attempts to reestablish IV access, changing Abx to Bactrim DS 1 tab PO bid to cover esbl e.coli Time Spent With Patient Time: Total time managing care of this patient today ____ minutes.
[2023-08-25 20:00] VITALS: BP 107/55; PULSE 72; RESP 20; TEMP 36; O2SAT 98
[2023-08-26 04:00] VITALS: BP 126/78; PULSE 63; RESP 16; TEMP 36; O2SAT 97
[2023-08-26 06:46] VITALS: BP 134/86; PULSE 70; RESP 17; TEMP 36.1; O2SAT 97
--- NOTE | 2023-08-26 14:55 | P.PNIM_ITS ---
Subjective Subjective Date of Service: 08/26/23 Interval History: Being followed for ESBL positive E coli, patient offers no acute complaints, no fevers, chills no chills, tolerating diet with no nausea, no vomiting, lost IV site yesterday but nursing was able to place a new IV line. Review of Systems Poor historian offers no other complaints all other system reviewed and negative . Physical Exam 2 Vital Signs: Vital Signs: Last Vital Signs Temp 97 F 08/26/23 06:46 Pulse 70 08/26/23 06:46 Resp 17 08/26/23 06:46 BP 134/86 08/26/23 06:46 Pulse Ox 97 08/26/23 06:46 O2 Del Method Room Air 08/26/23 06:46 BMI result Body Mass Index 29.8 Const: Other: Gen: Awake alert, sitting comfortably, in no acute distress HEENT: sclera anicteric, moist mucus membranes Neck: supple Lungs: clear to auscultation bilaterally Heart: regular rate and rhythm, no murmurs Abd: soft, non-tender, non-distended Ext: no edema Skin: warm/well-perfused, Neuro: alert, moving all extremities Psych: limited insight Objective Data Active Medications Acetaminophen (Acetaminophen 325 Mg Tablet) 650 mg PO Q6H PRN PRN Reason: Pain, Mild (Pain Scale 1-3) Atorvastatin Calcium (Atorvastatin Calcium 10 Mg Tablet) 10 mg PO BEDTIME [facility] Last Admin: 08/25/23 20:54 Dose: 10 mg Documented By: ARLYN Benztropine Mesylate (Benztropine Mesylate 1 Mg Tablet) 1 mg PO BID [facility] Last Admin: 08/26/23 08:37 Dose: 1 mg Documented By: ALONSO Calcium Carbonate/Cholecalciferol (Calcium + Vitamin D 250 Mg Tablet) 500 mg PO DAILY [facility] Last Admin: 08/26/23 08:37 Dose: 500 mg Documented By: ALONSO Dextrose (Dextrose 50 % 25 Gm/50 Ml Syringe) 25 gm IVPUSH Q15M PRN; Protocol PRN Reason: per Hypoglycemia Standing Ord. Last Admin: 08/23/23 08:10 Dose: 25 gm Documented By: PAU Docusate Sodium (Docusate Sodium 100 Mg Capsule) 100 mg PO BID [facility] Last Admin: 08/26/23 08:37 Dose: 100 mg Documented By: ALONSO Ferrous Sulfate (Ferrous Sulfate 324 Mg Tablet.) 324 mg PO DAILY [facility] Last Admin: 08/26/23 08:38 Dose: 324 mg Documented By: ALONSO Gabapentin (Gabapentin 600 Mg Tablet) 600 mg PO TID [facility] Last Admin: 08/26/23 08:37 Dose: 600 mg Documented By: ALONSO Glucose (Glucose Gel 15 Gm Gel..Gram.) 15 gm PO Q15M PRN; Protocol PRN Reason: per Hypoglycemia Standing Ord. Guaifenesin (Guaifenesin 100 Mg/5 Ml Liquid) 10 ml PO Q4H PRN PRN Reason: Cough Haloperidol (Haloperidol 5 Mg Tablet) 5 mg PO BID [facility] Last Admin: 08/26/23 08:38 Dose: 5 mg Documented By: ALONSO Haloperidol (Haloperidol 5 Mg Tablet) 10 mg PO BID [facility] Last Admin: 08/26/23 08:38 Dose: 10 mg Documented By: ALONSO Hydroxyzine HCl (Hydroxyzine Hcl 25 Mg Tablet) 25 mg PO BID [facility] Last Admin: 08/26/23 08:38 Dose: 25 mg Documented By: ALONSO Meropenem 1 gm/ Sodium (Chloride) 100 mls @ 200 mls/hr IV Q8H [facility] Last Infusion: 08/26/23 13:13 Dose: Infused Documented By: ALONSO Insulin Glargine (Insulin Glargine,Hum.Rec.Anlog 100 Unit/Ml 10 Ml Vial) 10 unit SUBCUT BEDTIME [facility] Last Admin: 08/25/23 20:57 Dose: 10 unit Documented By: ARLYN Insulin Human Lispro (Insulin Lispro 100 Unit/Ml 3 Ml Vial) 0 unit SUBCUT QIDACHS [facility]; Protocol Last Admin: 08/26/23 12:00 Dose: 4 unit Documented By: ALONSO Levetiracetam (Levetiracetam 1,000 Mg Tablet) 1,000 mg PO BID [facility] Last Admin: 08/26/23 08:37 Dose: 1,000 mg Documented By: ALONSO Levothyroxine Sodium (Levothyroxine Sodium 100 Mcg Tablet) 100 mcg PO DAILY@0600 [facility] Last Admin: 08/26/23 06:01 Dose: 100 mcg Documented By: ARLYN Loperamide HCl (Loperamide Hcl 2 Mg Capsule) 2 mg PO Q6H PRN PRN Reason: Loose Stool Metformin HCl (Metformin Hcl 1,000 Mg Tablet) 1,000 mg PO BIDWM [facility] Last Admin: 08/26/23 08:38 Dose: 1,000 mg Documented By: ALONSO Ondansetron HCl (Ondansetron Hcl 4 Mg/2 Ml Vial) 4 mg IVPUSH Q4H PRN PRN Reason: Nausea and Vomiting Oxcarbazepine (Oxcarbazepine 150 Mg Tablet) 150 mg PO DAILY [facility] Last Admin: 08/26/23 08:38 Dose: 150 mg Documented By: ALONSO Oxcarbazepine (Oxcarbazepine 300 Mg Tablet) 300 mg PO BEDTIME [facility] Last Admin: 08/25/23 20:54 Dose: 300 mg Documented By: ARLYN Phenytoin (Phenytoin Chewable 50 Mg Tab.Chew) 50 mg PO SUTUTHSA@0900,2100 [facility] Last Admin: 08/25/23 20:54 Dose: 50 mg Documented By: ARLYN Phenytoin Sodium (Phenytoin Sodium Extended 100 Mg Capsule) 100 mg PO SUTUTHSA@0900,2100 [facility] Last Admin: 08/25/23 20:53 Dose: 100 mg Documented By: ARLYN Phenytoin Sodium (Phenytoin Sodium Extended 100 Mg Capsule) 200 mg PO MOWEFR@0900,2100 [facility] Last Admin: 08/26/23 08:38 Dose: 200 mg Documented By: ALONSO Quetiapine Fumarate (Quetiapine Fumarate 25 Mg Tablet) 25 mg PO BEDTIME [facility] Last Admin: 08/25/23 20:53 Dose: 25 mg Documented By: ARLYN Senna (Sennosides 8.6 Mg Tablet) 8.6 mg PO DAILY PRN PRN Reason: Constipation Sodium Biphosphate/Sodium Phosphate (Sodium Phosphate,[place]-Dibasic 133 Ml Enema) 118 ml [place] DAILY PRN PRN Reason: Constipation Sodium Chloride (0.9 % Sodium Chloride Flush 3 Ml Syringe) 3 ml IVFLUSH QSHIFT [facility] Last Admin: 08/26/23 08:42 Dose: 3 ml Documented By: ALONSO Trimethoprim/Sulfamethoxazole (Sulfamethox/Trimeth 800/160 Tablet) 1 tab PO Q12H [facility] Last Admin: 08/26/23 08:38 Dose: 1 tab Documented By: ALONSO Vitamin D (Cholecalciferol (Vitamin D3) 25 Mcg Tablet) 50 mcg PO DAILY [facility] Last Admin: 08/26/23 08:37 Dose: 50 mcg Documented By: ALONSO Labs 08/22/23 12:17 08/24/23 10:05 Labs: Laboratory Results - last 24 hr 08/25/23 08/25/23 08/26/23 16:38 20:36 07:08 POC Glucose 170 H 262 H 79 08/26/23 11:14 POC Glucose 210 H Assessment and Plan (1) MARIBEL (acute kidney injury): Status: Acute Plan 52yo F long-term resident of [facility] with hx TBI, hypothyroidism, DM2, seizure disorder, prior ESBL UTI ,admitted for MARIBEL + UTI, also severe hypothyroidism but not in myxedema coma. MARIBEL, prerenal MARIBEL resolved ,s/p IV fluids UTI, hx ESBL - urine culture grew E coli sensitive to ertapenem, gentamicin nitrofurantoin and Bactrim, Continue IV meropenem started on 08/22-, blood cultures x2 negative , will discuss duration and choice of antibiotic with ID Sz disorder - no seizures noted, continue seizure precautions, continue levetiracetam + phenytoin + oxcarbazepine hypothyroidism, TSH 78.01 - undertreated due to coadministration with breakfast, dose increased from 88 to 100 mcg/d and give at 6am separate from food; will need to recheck TSH in 6 wk DM2 with hypoglycemia-hypoglycemia resolved, placed back on Lantus ,blood sugars elevated, will place on metformin 1000 mg b.i.d. follow blood sugars. mood disorder - continue oxcarbazepine + quetiapine + haloperidol + hydroxyzine + benztropine HLD - continue statin VTE ppx - SCDs dispo - eventual return to [facility] In my clinical judgment, the patient requires continued inpatient hospitalization for the following reasons: IV ABX Total time managing care of this patient today: 35 minutes. Quality Stroke Does the patient have a stroke diagnosis?: No VTE Prior VTE?: No VTE Risk Level:: Medical - moderate - high VTE Device Contraindication: N/A - Device Ordered VTE Drug Contraindication: N/A - Med Ordered
[2023-08-26 15:17] VITALS: BP 101/62; PULSE 64; RESP 16; TEMP 36.6; O2SAT 97
[2023-08-26 16:16] LABS: Glucose, Whole Blood 222 mg/dL (60-115)
[2023-08-26] MEDS: Gabapentin 600 MG TABLET PO ×2 (17:02→20:29)
[2023-08-26] MEDS: metFORMIN HCl 1,000 MG TABLET 1000 MG PO (17:02)
[2023-08-26] MEDS: Insulin Lispro 100 UNIT/ML 3 ML VIAL SUBCUT ×2 (17:03→21:04)
[2023-08-26 19:24] VITALS: BP 100/54; PULSE 66; RESP 16; TEMP 36.4; O2SAT 99
[2023-08-26] MEDS: HaloperidoL 5 MG TABLET PO (20:29)
[2023-08-26] MEDS: QUEtiapine Fumarate 25 MG TABLET PO (20:30)
[2023-08-26] MEDS: OXcarbazepine 300 MG TABLET PO (20:30)
[2023-08-26] MEDS: Atorvastatin Calcium 10 MG TABLET PO (20:30)
[2023-08-26] MEDS: Benztropine Mesylate 1 MG TABLET PO (20:30)
[2023-08-26] MEDS: levETIRAcetam 1,000 MG TABLET 1000 MG PO (20:30)
[2023-08-26] MEDS: Docusate Sodium 100 MG CAPSULE PO (20:30)
[2023-08-26] MEDS: Sulfamethox/Trimeth 800/160 TABLET 1 TAB PO (20:30)
[2023-08-26] MEDS: HaloperidoL 5 MG TABLET 10 MG PO (20:30)
[2023-08-26] MEDS: hydrOXYzine HCL 25 MG TABLET PO (20:30)
[2023-08-26] MEDS: Insulin Glargine,Hum.rec.anlog 100 UNIT/ML 10 ML VIAL 10 UNIT SUBCUT (20:35)
[2023-08-26 20:38] LABS: Glucose, Whole Blood 233 mg/dL (60-115)
[2023-08-26] MEDS: Phenytoin Sodium Extended 100 MG CAPSULE 200 MG PO (20:38)
--- NOTE | 2023-08-26 21:54 | P.CNID_ITS ---
History of Present Illness Data of Consult Service Date: 08/26/23 Requesting physician: Avni Cain Primary Care Provider: Roby Roth DO HPI Reason for consult: confusion,dysuria She presents with changing mental status changes. She reports dysuria. She has positive urinalysis as well. He lost IV access and received Bactrim briefly. He has h/o ESBL and now E coli sensitive to Ertapenem,Macrobid and Bactrim. Review of Systems 2 Review of Systems: Yes all other systems are reviewed and are negative FORMERLY [facility], [facility] Past Medical History Medical History Adjustment reaction with mixed disturbance of emotions and conduct Anxiety Mood disorder Leiomyoma of body of uterus Preglaucoma Presbyopia UTI (urinary tract infection) Hypothermia Long QT syndrome Sepsis COVID-19 Cystitis Hyperkalemia ESBL (extended spectrum beta-lactamase) producing bacteria infection Essential (primary) hypertension Diabetic retinopathy Anxiety Mood disorder Dementia Subarachnoid hemorrhage following injury TBI (traumatic brain injury) Unspecified dementia with behavioral disturbance Seizure disorder Hypothyroid Hyperlipidemia Diabetes Family History Family History Mother Breast cancer Family history: reviewed and not pertinent Social History Social History Household Members: Other Housing: Snf Do you presently have visiting nurse or other home services: No Alcohol intake: never Patient Tobacco Use Status: Never used Tobacco Advance Directives Date on File: 03/23/21 service: No Current occupational status: disabled Meds Allergies Allergy/AdvReac Type Severity Reaction Status Date / Time chlorpromazine Allergy Intermediate HIVES Verified 03/27/23 09:55 [CHLORPROMAZINE] Active Medications: Current Medications Acetaminophen (Acetaminophen 325 Mg Tablet) 650 mg PO Q6H PRN PRN Reason: Pain, Mild (Pain Scale 1-3) Atorvastatin Calcium (Atorvastatin Calcium 10 Mg Tablet) 10 mg PO BEDTIME [facility] Last Admin: 08/26/23 20:30 Dose: 10 mg Benztropine Mesylate (Benztropine Mesylate 1 Mg Tablet) 1 mg PO BID [facility] Last Admin: 08/26/23 20:30 Dose: 1 mg Calcium Carbonate/Cholecalciferol (Calcium + Vitamin D 250 Mg Tablet) 500 mg PO DAILY [facility] Last Admin: 08/26/23 08:37 Dose: 500 mg Dextrose (Dextrose 50 % 25 Gm/50 Ml Syringe) 25 gm IVPUSH Q15M PRN; Protocol PRN Reason: per Hypoglycemia Standing Ord. Last Admin: 08/23/23 08:10 Dose: 25 gm Docusate Sodium (Docusate Sodium 100 Mg Capsule) 100 mg PO BID [facility] Last Admin: 08/26/23 20:30 Dose: 100 mg Ferrous Sulfate (Ferrous Sulfate 324 Mg Tablet.Dr) 324 mg PO DAILY [facility] Last Admin: 08/26/23 08:38 Dose: 324 mg Gabapentin (Gabapentin 600 Mg Tablet) 600 mg PO TID [facility] Last Admin: 08/26/23 20:29 Dose: 600 mg Glucose (Glucose Gel 15 Gm Gel..Gram.) 15 gm PO Q15M PRN; Protocol PRN Reason: per Hypoglycemia Standing Ord. Guaifenesin (Guaifenesin 100 Mg/5 Ml Liquid) 10 ml PO Q4H PRN PRN Reason: Cough Haloperidol (Haloperidol 5 Mg Tablet) 5 mg PO BID [facility] Last Admin: 08/26/23 20:29 Dose: 5 mg Haloperidol (Haloperidol 5 Mg Tablet) 10 mg PO BID [facility] Last Admin: 08/26/23 20:30 Dose: 10 mg Hydroxyzine HCl (Hydroxyzine Hcl 25 Mg Tablet) 25 mg PO BID [facility] Last Admin: 08/26/23 20:30 Dose: 25 mg Meropenem 1 gm/ Sodium (Chloride) 100 mls @ 200 mls/hr IV Q8H [facility] Last Infusion: 08/26/23 21:12 Dose: Infused Insulin Glargine (Insulin Glargine,Hum.Rec.Anlog 100 Unit/Ml 10 Ml Vial) 10 unit SUBCUT BEDTIME [facility] Last Admin: 08/26/23 20:35 Dose: 10 unit Insulin Human Lispro (Insulin Lispro 100 Unit/Ml 3 Ml Vial) 0 unit SUBCUT QIDACHS [facility]; Protocol Last Admin: 08/26/23 21:04 Dose: 4 unit Levetiracetam (Levetiracetam 1,000 Mg Tablet) 1,000 mg PO BID [facility] Last Admin: 08/26/23 20:30 Dose: 1,000 mg Levothyroxine Sodium (Levothyroxine Sodium 100 Mcg Tablet) 100 mcg PO DAILY@0600 [facility] Last Admin: 08/26/23 06:01 Dose: 100 mcg Loperamide HCl (Loperamide Hcl 2 Mg Capsule) 2 mg PO Q6H PRN PRN Reason: Loose Stool Metformin HCl (Metformin Hcl 1,000 Mg Tablet) 1,000 mg PO BIDWM [facility] Last Admin: 08/26/23 17:02 Dose: 1,000 mg Ondansetron HCl (Ondansetron Hcl 4 Mg/2 Ml Vial) 4 mg IVPUSH Q4H PRN PRN Reason: Nausea and Vomiting Oxcarbazepine (Oxcarbazepine 150 Mg Tablet) 150 mg PO DAILY [facility] Last Admin: 08/26/23 08:38 Dose: 150 mg Oxcarbazepine (Oxcarbazepine 300 Mg Tablet) 300 mg PO BEDTIME [facility] Last Admin: 08/26/23 20:30 Dose: 300 mg Phenytoin (Phenytoin Chewable 50 Mg Tab.Chew) 50 mg PO SUTUTHSA@899,2099 [facility] Last Admin: 08/25/23 20:54 Dose: 50 mg Phenytoin Sodium (Phenytoin Sodium Extended 100 Mg Capsule) 100 mg PO SUTUTHSA@899,2099 [facility] Last Admin: 08/25/23 20:53 Dose: 100 mg Phenytoin Sodium (Phenytoin Sodium Extended 100 Mg Capsule) 200 mg PO MOWEFR@899,2099 [facility] Last Admin: 08/26/23 20:38 Dose: 200 mg Quetiapine Fumarate (Quetiapine Fumarate 25 Mg Tablet) 25 mg PO BEDTIME [facility] Last Admin: 08/26/23 20:30 Dose: 25 mg Senna (Sennosides 8.6 Mg Tablet) 8.6 mg PO DAILY PRN PRN Reason: Constipation Sodium Biphosphate/Sodium Phosphate (Sodium Phosphate,Chambers-Dibasic 133 Ml Enema) 118 ml [place] DAILY PRN PRN Reason: Constipation Sodium Chloride (0.9 % Sodium Chloride Flush 3 Ml Syringe) 3 ml IVFLUSH QSHIFT [facility] Last Admin: 08/26/23 17:02 Dose: 3 ml Trimethoprim/Sulfamethoxazole (Sulfamethox/Trimeth 800/160 Tablet) 1 tab PO Q12H [facility] Last Admin: 08/26/23 20:30 Dose: 1 tab Vitamin D (Cholecalciferol (Vitamin D3) 25 Mcg Tablet) 50 mcg PO DAILY [facility] Last Admin: 08/26/23 08:37 Dose: 50 mcg Home Medications Medication Instructions Recorded Confirmed Last Taken Type acetaminophen 325 mg tablet 650 mg PO Q6H PRN Pain 10/29/22 08/22/23 Unknown History atorvastatin 10 mg tablet 10 mg PO BEDTIME 10/29/22 08/22/23 Unknown History benztropine 1 mg tablet 1 mg PO BID 10/29/22 08/22/23 Unknown History calcium carbonate 600 mg-vitamin 2 tab PO DAILY 10/29/22 08/22/23 Unknown History D3 10 mcg (400 unit) tablet (Calcium 600 + D(3)) cholecalciferol (vitamin D3) 1,250 1,250 mcg PO MO@0900 10/29/22 08/22/23 Unknown History mcg (50,000 unit) capsule docusate sodium 100 mg capsule 100 mg PO BID 10/29/22 08/22/23 Unknown History ferrous sulfate 324 mg (65 mg 324 mg PO DAILY 10/29/22 08/22/23 Unknown History iron) tablet,delayed release gabapentin 600 mg tablet 600 mg PO TID 10/29/22 08/22/23 Unknown History guaifenesin 100 mg/5 mL oral liquid 200 mg PO Q4H PRN Cough 10/29/22 08/22/23 Unknown History haloperidol 10 mg tablet 10 mg PO BID 10/29/22 08/22/23 Unknown History haloperidol 5 mg tablet 5 mg PO BID 10/29/22 08/22/23 Unknown History hydroxyzine HCl 25 mg tablet 25 mg PO BID 10/29/22 08/22/23 Unknown History ibuprofen 600 mg tablet 600 mg PO Q8H PRN Pain 10/29/22 08/22/23 Unknown History insulin aspart U-100 100 unit/mL 1 sliding scale dose subcut 10/29/22 08/22/23 Unknown History subcutaneous solution (Novolog USEASDIRECTD U-100 Insulin aspart) levetiracetam 1,000 mg tablet 1,000 mg PO BID 10/29/22 08/22/23 Unknown History metformin 1,000 mg tablet 1,000 mg PO BID 10/29/22 08/22/23 Unknown History oxcarbazepine 150 mg tablet 150 mg PO DAILY 10/29/22 08/22/23 Unknown History (Trileptal) oxcarbazepine 300 mg tablet 300 mg PO BEDTIME 10/29/22 08/22/23 Unknown History (Trileptal) phenytoin sodium extended 200 mg 200 mg PO MOWEFR@0900,2100 10/29/22 08/22/23 Unknown History capsule quetiapine 25 mg tablet 25 mg PO BEDTIME 10/29/22 08/22/23 Unknown History sennosides 8.6 mg tablet (senna) 8.6 mg PO DAILY PRN Constipation 10/29/22 08/22/23 Unknown History sodium phosphates 19 gram-7 118 ml [place] DAILY PRN Constipation 10/29/22 08/22/23 Unknown History gram/118 mL enema (Fleet Enema) cranberry fruit 450 mg tablet 450 mg PO DAILY 08/22/23 08/22/23 Unknown History (cranberry) insulin glargine 100 unit/mL (3 10 unit subcut BEDTIME 08/22/23 08/22/23 Unknown History mL) subcutaneous pen (Lantus Solostar U-100 Insulin) levothyroxine 88 mcg tablet 88 mcg PO DAILY@0600 08/22/23 08/22/23 Unknown History loperamide 2 mg capsule 2 mg PO Q6H PRN Loose Stool 08/22/23 08/22/23 Unknown History ondansetron 4 mg disintegrating 4 mg PO Q6H PRN Nausea And Vomiting 08/22/23 08/22/23 Unknown History tablet phenytoin 50 mg chewable tablet 50 mg PO SUTUTHSA@0900,2100 08/22/23 08/22/23 Unknown History phenytoin sodium extended 100 mg 100 mg PO SUTUTHSA@0900,2100 08/22/23 08/22/23 Unknown History capsule Physical Exam 2 Vital Signs: Vital Signs: Last Vital Signs Temp 97.5 F 08/26/23 19:24 Pulse 66 08/26/23 19:24 Resp 16 08/26/23 19:24 BP 100/54 L 08/26/23 19:24 Pulse Ox 99 08/26/23 19:24 O2 Del Method Room Air 08/26/23 19:24 BMI result Body Mass Index 29.8 Const: General: cooperative HEENT: Head: Yes normal to inspection Face and sinus: Yes normal facial exam Mouth: Normal oral and palatal mucosa present Teeth and gingiva: d entition normal Eyes: General: appearance normal, both eyes and all related structures P upils: Equal, round and reactive pupils present Resp: Effort & Inspection: normal respiratory effort Cardio: Rate: regular rate Rhythm: regular rhythm GI: Palpation (GI): Soft to palpation and nontender : General: Yes no CVA tenderness Back/Spine/Pelvis: Back: no CVA tenderness Skin: General skin exam: no rashes or lesions noted Neuro: General: moves all extremities Cranial nerves: Yes Equal, round and reactive pupils present Extrem: General: Yes normal to inspection Psych: Appearance: grossly normal Results Labs 08/22/23 12:17 08/24/23 10:05 Microbiology Microbiology Results: Microbiology 08/22/23 Unknown Urine clean catch - Urine vasquez top Urine Culture - Final Escherichia coli 08/22/23 15:56 Blood - Venous Blood Culture - Preliminary No growth after 48 hours. 08/22/23 15:56 Blood - Venous Blood Culture - Preliminary No growth after 48 hours. Assessment and Plan (1) UTI (urinary tract infection): Status: Acute (2) ESBL (extended spectrum beta-lactamase) producing bacteria infection: Status: Acute Plan ESBL UTI She has some oral sensitivities as well Would give po Bactrim for 14 days.
[2023-08-27 03:04] VITALS: BP 121/67; PULSE 64; RESP 16; TEMP 36; O2SAT 100
[2023-08-27] MEDS: Levothyroxine Sodium 100 MCG TABLET PO (05:13)
[2023-08-27 07:16] VITALS: BP 130/76; PULSE 62; RESP 18; TEMP 36.1; O2SAT 100
[2023-08-27 07:27] LABS: Glucose, Whole Blood 72 mg/dL (60-115)
[2023-08-27] MEDS: HaloperidoL 5 MG TABLET PO (09:02)
[2023-08-27] MEDS: HaloperidoL 5 MG TABLET 10 MG PO (09:02)
[2023-08-27] MEDS: Benztropine Mesylate 1 MG TABLET PO (09:03)
[2023-08-27] MEDS: Phenytoin Sodium Extended 100 MG CAPSULE PO (09:03)
[2023-08-27] MEDS: Cholecalciferol (Vitamin D3) 25 MCG TABLET 50 MCG PO (09:03)
[2023-08-27] MEDS: Sulfamethox/Trimeth 800/160 TABLET 1 TAB PO (09:03)
[2023-08-27] MEDS: OXcarbazepine 150 MG TABLET PO (09:03)
[2023-08-27] MEDS: levETIRAcetam 1,000 MG TABLET 1000 MG PO (09:03)
[2023-08-27] MEDS: Ferrous Sulfate 324 MG TABLET.DR PO (09:03)
[2023-08-27] MEDS: Phenytoin Chewable 50 MG TAB.CHEW PO (09:03)
[2023-08-27] MEDS: Gabapentin 600 MG TABLET PO ×2 (09:03→16:52)
[2023-08-27] MEDS: Calcium + Vitamin D 250 MG TABLET 500 MG PO (09:04)
[2023-08-27] MEDS: hydrOXYzine HCL 25 MG TABLET PO (09:04)
[2023-08-27] MEDS: metFORMIN HCl 1,000 MG TABLET 1000 MG PO ×2 (09:04→16:52)
[2023-08-27] MEDS: Docusate Sodium 100 MG CAPSULE PO (09:04)
--- NOTE | 2023-08-27 09:34 | PM.DS ---
DS: Providers Provider Date of Service: 08/27/23 Date of admission: 08/22/23 16:47 Primary care physician: Roby Roth DO Consults: 08/22/23 16:30 Consult to Infectious Diseases Routine Consulting Provider: SHANNAN RIOS Reason for consultation: hx esbl uti 08/26/23 14:55 Consult to Infectious Diseases Routine Consulting Provider: Shannan Rios Reason for consultation: esbl uti Has provider been notified: No DS: Diagnosis Discharge Diagnosis (1) UTI (urinary tract infection): Status: Acute (2) ESBL (extended spectrum beta-lactamase) producing bacteria infection: Status: Acute DS: Summary Hospital Course Hospital Course: History of presenting illness: Date of Service: 08/22/23 Chief Complaint: MARIBEL, UTI 52yo F long-term resident of [facility] with hx TBI, hypothyroidism, DM2, seizure disorder, prior ESBL UTI. Found to have markedly elevated TSH due to incorrect administration of levothyroxine [was getting it with meals]. In the ED, she was found to have MARIBEL with SCr 1.73, baseline 0.92. This prompted request for admission. Also noted to have pyuria concerning for UTI. She was given IV fluids and ceftriaxone. She is a poor historian but denies fever, chills, cold intolerance, dyspnea, chest pain, abd discomfort, nausea, vomiting, or urinary symptoms. Hospital course: 52yo F long-term resident of [facility] with hx TBI, hypothyroidism, DM2, seizure disorder, prior ESBL UTI ,admitted for MARIBEL + UTI, also severe hypothyroidism but not in myxedema coma. MARIBEL, was likely pre renal resolved with IV fluids. Acute UTI, admitted to medical floor treated with IV meropenem due to prior history of ESBL positive UTI, urine culture again grew E coli ESBL positive initially treated with IV meropenem subsequently seen by infectious disease and being discharged home on total 2 weeks of by mouth Bactrim 1 tablet b.i.d. blood cultures negative. Seizure disorder - continue seizure precautions and continue levetiracetam + phenytoin + oxcarbazepine. Hypothyroidism, noted to have TSH 78.01 - undertreated due to coadministration with breakfast, dose increased from 88 to 100 mcg/d and give at 6am separate from food, Recommend to check TSH in 4-6 weeks DM2 continue home medications Lantus , metformin 1000 mg b.i.d. follow blood sugars. mood disorder - continue oxcarbazepine + quetiapine + haloperidol + hydroxyzine + benztropine HLD - continue statin Time Attestation Discharge coordination time: Greater than 30 minutes Quality: Safe Use of Opioids Does Pt have an Active Cancer Diagnosis on the Problem List?: No Quality: Stroke Does the patient have a stroke diagnosis?: No Physical Exam Vital Signs: Vital Signs: Last Vital Signs Temp 96.9 F 08/27/23 07:16 Pulse 62 08/27/23 07:16 Resp 18 08/27/23 07:16 BP 130/76 08/27/23 07:16 Pulse Ox 100 08/27/23 07:16 O2 Del Method Room Air 08/27/23 07:16 BMI result Body Mass Index 29.8 Const: Other: Gen: Awake alert, sitting comfortably, in no acute distress HEENT: sclera anicteric, moist mucus membranes Neck: supple Lungs: clear to auscultation bilaterally Heart: regular rate and rhythm, no murmurs Abd: soft, non-tender, non-distended Ext: no edema Skin: warm/well-perfused, Neuro: alert, moving all extremities Psych: limited insight DS: Data Data Completed and Pending Labs on day of discharge: Laboratory Results - last 24 hr 08/26/23 08/26/23 08/26/23 11:14 16:08 20:26 POC Glucose 210 H 222 H 233 H 08/27/23 07:22 POC Glucose 72 Preliminary micro results at discharge 08/22/23 15:56 Blood Culture - Preliminary Blood - Venous No growth after 48 hours. 08/22/23 15:56 Blood Culture - Preliminary Blood - Venous No growth after 48 hours. Discharge Plan Discharge Anticipated Discharge Date/Time: 08/27/23 09:32 Patient Disposition: Xfer SNF Discharge Diagnosis: Acute ESBL positive UTI Hypothyroidism Acute kidney injury Referrals: Roby Roth DO [Primary Care Provider] - 1 Week Discharge Medications: New levothyroxine [Synthroid] 100 mcg Tablet 100 mcg PO DAILY@0600 Qty: 30 0RF sulfamethoxazole-trimethoprim 800-160 mg Tablet 1 tab PO Q12H Qty: 24 0RF Continued quetiapine 25 mg Tablet 25 mg PO BEDTIME oxcarbazepine [Trileptal] 150 mg Tablet 150 mg PO DAILY sennosides [senna] 8.6 mg Tablet 8.6 mg PO DAILY PRN (Reason: Constipation) acetaminophen 325 mg Tablet 650 mg PO Q6H PRN (Reason: Pain) gabapentin 600 mg Tablet 600 mg PO TID haloperidol 5 mg Tablet 5 mg PO BID atorvastatin 10 mg Tablet 10 mg PO BEDTIME phenytoin sodium extended 200 mg Capsule 200 mg PO MOWEFR@0900,2100 oxcarbazepine [Trileptal] 300 mg Tablet 300 mg PO BEDTIME guaifenesin 100 mg/5 mL Liquid 200 mg PO Q4H PRN (Reason: Cough) insulin aspart U-100 [Novolog U-100 Insulin aspart] 100 unit/mL Solution 1 sliding scale dose SUBCUT USEASDIRECTD Protocol: Insulin Correction Scale Less than or equal to 110 ---- Give (units): 0 111 to 150 Give (units): 0 151 to 200 Give (units): 2 201 to 250 Give (units): 2 251 to 300 Give (units): 4 301 to 350 Give (units): 6 Greater than 350 Give (units): 8 Call MD if Blood Glucose > : 350 metformin 1,000 mg Tablet 1,000 mg PO BID haloperidol 10 mg Tablet 10 mg PO BID benztropine 1 mg Tablet 1 mg PO BID Fleet Enema 19-7 gram/118 mL Enema 118 ml [place] DAILY PRN (Reason: Constipation) docusate sodium 100 mg Capsule 100 mg PO BID hydroxyzine HCl 25 mg Tablet 25 mg PO BID ibuprofen 600 mg Tablet 600 mg PO Q8H PRN (Reason: Pain) levetiracetam 1,000 mg Tablet 1,000 mg PO BID calcium carbonate-vitamin D3 [Calcium 600 + D(3)] 600 mg-10 mcg (400 unit) Tablet 2 tab PO DAILY cholecalciferol (vitamin D3) 1,250 mcg (50,000 unit) Capsule 1,250 mcg PO MO@0900 ferrous sulfate 324 mg (65 mg iron) Tablet,Delayed Release (Dr/Ec) 324 mg PO DAILY loperamide 2 mg Capsule 2 mg PO Q6H PRN (Reason: Loose Stool) phenytoin sodium extended 100 mg Capsule 100 mg PO SUTUTHSA@0900,2100 phenytoin 50 mg Tablet,Chewable 50 mg PO SUTUTHSA@0900,2100 ondansetron 4 mg Tablet,Disintegrating 4 mg PO Q6H PRN (Reason: Nausea And Vomiting) cranberry 450 mg Tablet 450 mg PO DAILY Rx Instructions: administer with a meal insulin glargine [Lantus Solostar U-100 Insulin] 100 unit/mL (3 mL) insulin pen 10 unit SUBCUT BEDTIME Discontinued levothyroxine 88 mcg Tablet 88 mcg PO DAILY@0600 Discharge Orders: Discharge Order (Routine); Ordered 08/27/23 Ordered By: Saumya Chopra Diet: Diabetic diet Activity on Discharge: As tolerated Stand Alone Forms: Patient Portal Discharge page Care Plan Goals: ES BL positive urine infection take Bactrim for 12 more days 1 tablet twice daily Dose of Synthroid increased to 100 mcg 1 tablet by mouth daily, GIVE AT 06:00 SEPARATE FROM FOOD CHECK TSH IN 4 WEEKS AND ADJUST DOSE OF SYNTHROID Health Concerns: Diabetes monitor blood sugars and continue home medication Plan of Treatment: Follow-up with primary care physician. Assessment: As above
[2023-08-27 11:12] LABS: Glucose, Whole Blood 166 mg/dL (60-115)
[2023-08-27] MEDS: Insulin Lispro 100 UNIT/ML 3 ML VIAL SUBCUT (11:33)
--- NOTE | 2023-08-27 14:19 | MHC.CM.PN ---
Addendum entered by Rhoda Mcdonald 08/27/23 15:48: HCP NOTIFIED OF DC VIA T/C JOHN [phone] Original Note: PT IS MEDICALLY CLEARED TO DC BACK TO [facility] TODAY AUTH FOR TRANSPORT OBTAINED FROM MY MEDICAID TRANSPORT ARRANGED FOR 1445 HOURS TODAY VIA [facility]
[2023-08-27 15:31] VITALS: BP 130/71; PULSE 78; RESP 17; TEMP 35.9; O2SAT 100
[2023-08-27 16:07] LABS: Glucose, Whole Blood 205 mg/dL (60-115)
== END 2023-08-27 17:43 | disposition skilled nursing facility (03) | DRG 463 ==
LOC: HO.ED 15:13 → HO.EDOVER 16:56 → HO.S3 18:10
PROVIDERS: Admitting Provider Family Medicine; Emergency Provider Student in an Organized Health Care Education/Training Program; PCP Hospitalist; Visit Provider Hospitalist
DX: N39.0 Urinary tract infection, site not specified (principal); N17.9 Acute kidney failure, unspecified; E11.649 Type 2 diabetes mellitus with hypoglycemia without coma; G40.909 Epilepsy, unspecified, not intractable, without status epilepticus; B96.20 Unspecified Escherichia coli [E. coli] as the cause of diseases classified elsewhere; E03.9 Hypothyroidism, unspecified; Z16.12 Extended spectrum beta lactamase (ESBL) resistance; Z91.A48 Caregiver's other noncompliance with patient's medication regimen for other reason; Z87.440 Personal history of urinary (tract) infections; Z20.822 Contact with and (suspected) exposure to COVID-19; Z87.820 Personal history of traumatic brain injury; Z79.4 Long term (current) use of insulin; Z79.84 Long term (current) use of oral hypoglycemic drugs; Z79.890 Hormone replacement therapy; Z79.899 Other long term (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
CPT/HCPCS: 0241U; 36415; 80048; 80053; 81001; 82570; 82947; 83605; 84300; 84439; 84443; 85025; 87040; 87086; 87088; 87186; 99285; J2185

== ENCOUNTER → 2023-08-22 16:47 | Outpatient (BNV) | payer MEDICAID, SELFPAY | PROVIDERS: Admitting Provider Family Medicine; Emergency Provider Student in an Organized Health Care Education/Training Program; PCP Hospitalist; Visit Provider Internal Medicine | DX: N39.0 Urinary tract infection, site not specified (principal); A49.9 Bacterial infection, unspecified; Z16.12 Extended spectrum beta lactamase (ESBL) resistance | CPT/HCPCS: 99222 ==

== ENCOUNTER → 2023-08-22 16:47 | Outpatient (BNV) | payer MEDICAID, SELFPAY | PROVIDERS: Admitting Provider Family Medicine; Emergency Provider Student in an Organized Health Care Education/Training Program; PCP Hospitalist; Visit Provider Family Medicine | DX: N39.0 Urinary tract infection, site not specified (principal); A49.9 Bacterial infection, unspecified; Z16.12 Extended spectrum beta lactamase (ESBL) resistance | CPT/HCPCS: 99222; 99232; 99239; 99499 ==

== ENCOUNTER 2024-01-22 09:30 | Outpatient (AMB) | payer MEDICAID, SELFPAY ==
--- NOTE | 2024-01-22 09:37 | A.OFFVIS_ITS ---
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 No complaints. Last Pap/HPV was negative in 01/07 Last Mammogram was BI-RADS 2 in 03/08 No previous screening colonoscopy [facility] Medical History Adjustment reaction with mixed disturbance of emotions and conduct Anxiety Mood disorder Leiomyoma of body of uterus Preglaucoma Presbyopia UTI (urinary tract infection) Hypothermia Long QT syndrome Sepsis COVID-19 Cystitis Hyperkalemia ESBL (extended spectrum beta-lactamase) producing bacteria infection Essential (primary) hypertension Diabetic retinopathy Anxiety Mood disorder Dementia Subarachnoid hemorrhage following injury TBI (traumatic brain injury) Unspecified dementia with behavioral disturbance Seizure disorder Hypothyroid Hyperlipidemia Diabetes Surgical History Hx of tubal ligation Family History Mother Breast cancer Social History Household Members: Other Housing: [facility] Do you presently have visiting nurse or other home services: No Alcohol intake: never Patient Tobacco Use Status: Never used Tobacco Advance Directives Date on File: 03/23/21 service: No Current occupational status: disabled Female Reproductive History Menstrual Total pregnancies: 2 Full term: 2 Number of Living Children: 2 Date of last pap smear: 01/11/22 Date of Mammogram: 03/15/21 Review of Systems Const All systems reviewed & are unremarkable except as noted in HPI and below Card Reports as per HPI Resp Reports as per HPI GI Reports as per HPI and Reports no additional complaints Reports as per HPI Physical Exam Const General: cooperative, healthy appearing and comfortable Chest Chest palpation & inspection: normal inspection of the chest and normal palpation of entire chest wall Breast/axilla inspection: normal inspection of the breasts and normal inspection of the axillae Breast/axilla palpation: normal palpation of the breasts, normal palpation of the axillae and no axillary lymphadenopathy Resp Effort & Inspection: normal respiratory effort Auscultation: clear to auscultation bilaterally Percussion: percussion normal Cardio Palpation: normal PMI Rate: regular rate Rhythm: regular rhythm Heart sounds: no murmurs and no rubs Peripheral pulses: Peripheral pulses 2+ throughout GI Inspection: Yes normal to inspection Palpation (GI): Soft to palpation, nontender, no guarding, not rigid and No hepatosplenomegaly present Percussion: Yes normal to percussion Auscultation: normal bowel sounds Rectal Exam - Female: deferred General: Yes bladder normal to palpation External Female Exam: No lesion Speculum Exam - Vagina: normal appearance of the vagina, normal palpation, normal vaginal discharge and not erythematous Speculum Exam - Cervix: normal appearance of the cervix and normal palpation Bimanual exam- vagina & uterus: normal bimanual exam, normal palpation, uterine size normal, bladder normal to palpation, consistency normal and normal palpation Bimanual Exam- Adnexa, other: normal adnexae, no masses and no tenderness Assessment & Plan Assessment & Plan (1) Well woman exam: Code(s): Z01.419 - Encounter for gynecological examination (general) (routine) without abnormal findings Category: Medical Plan: Co testing not indicated this year. Counseled the patient about the recommended dietary allowance of 1200 mg of Calcium & 600 IU of vitamin D. Mammogram ordered. The patient was referred to GI for screening colonoscopy . The patient was instructed to perform monthly self-breast exams and schedule annual exam in a year. All questions answered and the patient verbalized understanding. Orders: Orders MM tomosynthesis screening BI Today Z12.31 - Encounter for screening mammogram for malignant neoplasm of breast Referrals Gastroenterology Referral Z12.11 - Encounter for screening for malignant neoplasm of colon Coding Level of Care Code Est Pt Prev Care 40-64y(24191) Diagnoses Well woman exam Z01.419
[2024-01-22 09:42] VITALS: BP 126/78; BMI 28.8
== END 2024-01-22 10:01 | disposition home or self-care (01) ==
LOC: HO.HWS 09:30
PROVIDERS: PCP Hospitalist; Visit Provider Obstetrics & Gynecology
DX: Z01.419 Encounter for gynecological examination (general) (routine) without abnormal findings (principal)
CPT/HCPCS: 99396

== ENCOUNTER → 2024-01-22 09:30 | Outpatient (BNVA) | payer MEDICAID, SELFPAY | PROVIDERS: PCP Hospitalist; Visit Provider Obstetrics & Gynecology | DX: Z01.419 Encounter for gynecological examination (general) (routine) without abnormal findings (principal); Z98.51 Tubal ligation status; Z78.0 Asymptomatic menopausal state | CPT/HCPCS: 99396 ==

== ENCOUNTER 2024-02-04 13:31 | Outpatient (REF) | payer MEDICAID, SELFPAY ==
--- NOTE | ~2024-02-04 | MM_ITS ---
EXAMINATION: MM SCREENING DIGITAL BREAST TOMOSYNTHESIS, BILATERAL CLINICAL INFORMATION: Screening. Asymptomatic. COMPARISON: Mammography: This study is compared with prior exams dating back to 2019. TECHNIQUE: Digital breast tomosynthesis is performed in both the craniocaudal and mediolateral oblique views along with computer-aided detection (CAD). Synthesized 2D images are generated from the tomosynthesis. FINDINGS: There are scattered areas of fibroglandular density (ACR BI-RADS breast composition Category b). There are no significant masses, abnormal calcifications, or other abnormalities. Few, benign, well-circumscribed, oval masses are present in the medial aspect of the left breast. There are no significant interval changes with the prior studies. MM/MM tomosynthesis screening BI IMPRESSION: No mammographic evidence of malignancy. ASSESSMENT: BI-RADS BI-RADS 2 - Benign Findings RECOMMENDATION: Routine annual mammography screening. 1 year F/U This examination should not preclude the clinical evaluation of a suspicious palpable abnormality. This patient's information was entered into a reminder system with a target due date for their next mammogram.
== END 2024-02-04 13:32 | disposition home or self-care (01) ==
LOC: HO.MAMMO 13:31
PROVIDERS: PCP Hospitalist; Visit Provider Hospitalist
DX: Z12.31 Encounter for screening mammogram for malignant neoplasm of breast (principal)
CPT/HCPCS: 77063; 77067

== ENCOUNTER → 2024-02-04 13:45 | Outpatient (BNV) | payer MEDICAID, SELFPAY | PROVIDERS: PCP Hospitalist; Visit Provider Radiology Diagnostic Radiology | DX: Z12.31 Encounter for screening mammogram for malignant neoplasm of breast (principal) | CPT/HCPCS: 77063; 77067 ==

== ENCOUNTER 2024-02-16 00:13 | Emergency (ER) | payer MEDICAID, SELFPAY ==
--- NOTE | 2024-02-16 | ECG_ITS ---
Test Reason : CP Blood Pressure : / mmHG Vent. Rate : 073 BPM Atrial Rate : 073 BPM P-R Int : 194 ms QRS Dur : 078 ms QT Int : 394 ms P-R-T Axes : 069 -04 036 degrees QTc Int : 434 ms Normal sinus rhythm Nonspecific T wave abnormality Abnormal ECG When compared with ECG of 17-JUL-2022 15:47, No significant change was found Referred By: Generic ED Physician Electronically Signed By:MIREILLE CHICAS MD
[2024-02-16 00:19] VITALS: BP 132/84; PULSE 86; O2SAT 98; BMI 29.7
[2024-02-16 00:28] VITALS: BP 136/77; PULSE 84; RESP 18; TEMP 36.7; O2SAT 97
--- NOTE | 2024-02-16 00:57 | MHC.EDTECH ---
Patient BIBA,changed into hospital attire,placed on the monitoring tech,labs obtained and sent to lab.
[2024-02-16 01:00] LABS: Basophils Percent Auto 0.2 % (0-2); Eosinophils Absolute Auto 0.1 X10*3/uL (0.0-0.4); Eosinophils Percent Auto 0.9 % (0-4); Hematocrit 31.5 % (37.0-47.0); Hemoglobin 10.5 g/dl (12.0-16.0); Imm Gran Abs Auto 0.01 X10*3/uL (0.00-0.03); Imm Gran Pct Auto 0.2 % (0.0-0.4); Lymphocytes Absolute Auto 2.1 X10*3/uL (1.2-4.9); Lymphocytes Percent Auto 39.5 % (20-40); MANUAL DIFF FLAG NO; Mean Corpuscular HGB Conc 33.3 g/dl (31.0-35.0); Mean Corpuscular Hemoglobin 29.2 pg (27.0-33.0); Mean Corpuscular Volume 87.5 fL (80.0-98.0); Mean Platelet Volume 10.1 fL (9.4-12.3); Monocytes Absolute Auto 0.4 X10*3/uL (0.1-1.2); Monocytes Percent Auto 8.1 % (2-11); Neutrophils Absolute Auto 2.8 x10*3/uL (2.0-8.3); Neutrophils Percent Auto 51.1 % (45-73); Platelet Count 199 X10*3/uL (160-400); Red Cell Distribution Width 13.5 % (11.0-16.0); White Blood Count 5.4 X10*3/uL (4.8-10.8)
[2024-02-16 01:14] LABS: Alanine Aminotransferase 16 U/L (0-31); Albumin Level 3.9 g/dL (3.5-5.0); Alkaline Phosphatase 151 U/L (39-117); Anion Gap 15 (12-20); Aspartate Amino Transferase 14 U/L (5-31); Bilirubin Total 0.1 mg/dL (0.0-1.0); Blood Urea Nitrogen 25 mg/dL (9-16); Calcium 9.4 mg/dL (8.4-10.2); Carbon Dioxide 23 mmol/L (22-29); Chloride 104 mmol/L (96-108); Creatinine Clr Calc Pharmacy 60.9; Estimated Glomerular Filt Rate 44; Glucose Random 170 mg/dL (60-115); Magnesium 1.7 mg/dL (1.6-2.6); Potassium 4.1 mmol/L (3.3-5.1); Sodium 138 mmol/L (135-145); Total Protein 7.8 g/dL (6.5-8.0)
[2024-02-16 01:20] LABS: Troponin-I High Sensitivity 9.3 ng/L (<3.5-17.0)
--- NOTE | 2024-02-16 01:39 | ED.GENADULT ---
HPI - General Adult General Chief complaint: General Medical Stated complaint: CHEST PAIN Time Seen by Provider: 02/16/24 01:27 Source: patient and EMS Mode of arrival: EMS Limitations: no limitations History of Present Illness ED Provider: Dr. Danyelle Garibay HPI narrative: Patient comes to the emergency room complaining of approximately 19 hours of intermittent chest pain. Patient states that she feels a little pinch in the left side. At this time, patient denies any pain at all. Earlier today, when she was at [facility] approximately 8 hours ago, she told the staff that she was having pain. When patient arrived to emergency room, patient was pain free. EMS gave the patient 324 mg of aspirin. Patient denies chest pain or shortness of breath at this time. Related Data Home Medications ?Medication ?Instructions ?Recorded ?Confirmed acetaminophen 325 mg tablet 650 mg PO Q6H PRN Pain 10/29/22 08/22/23 atorvastatin 10 mg tablet 10 mg PO BEDTIME 10/29/22 08/22/23 benztropine 1 mg tablet 1 mg PO BID 10/29/22 08/22/23 calcium carbonate 600 mg-vitamin 2 tab PO DAILY 10/29/22 08/22/23 D3 10 mcg (400 unit) tablet (Calcium 600 + D(3)) cholecalciferol (vitamin D3) 1,250 1,250 mcg PO MO@0900 10/29/22 08/22/23 mcg (50,000 unit) capsule docusate sodium 100 mg capsule 100 mg PO BID 10/29/22 08/22/23 ferrous sulfate 324 mg (65 mg 324 mg PO DAILY 10/29/22 08/22/23 iron) tablet,delayed release gabapentin 600 mg tablet 600 mg PO TID 10/29/22 08/22/23 guaifenesin 100 mg/5 mL oral liquid 200 mg PO Q4H PRN Cough 10/29/22 08/22/23 haloperidol 10 mg tablet 10 mg PO BID 10/29/22 08/22/23 haloperidol 5 mg tablet 5 mg PO BID 10/29/22 08/22/23 hydroxyzine HCl 25 mg tablet 25 mg PO BID 10/29/22 08/22/23 ibuprofen 600 mg tablet 600 mg PO Q8H PRN Pain 10/29/22 08/22/23 insulin aspart U-100 100 unit/mL 1 sliding scale dose subcut 10/29/22 08/22/23 subcutaneous solution (Novolog USEASDIRECTD U-100 Insulin aspart) levetiracetam 1,000 mg tablet 1,000 mg PO BID 10/29/22 08/22/23 metformin 1,000 mg tablet 1,000 mg PO BID 10/29/22 08/22/23 oxcarbazepine 150 mg tablet 150 mg PO DAILY 10/29/22 08/22/23 (Trileptal) oxcarbazepine 300 mg tablet 300 mg PO BEDTIME 10/29/22 08/22/23 (Trileptal) phenytoin sodium extended 200 mg 200 mg PO MOWEFR@0900,209910/29/22 08/22/23 capsule quetiapine 25 mg tablet 25 mg PO BEDTIME 10/29/22 08/22/23 sennosides 8.6 mg tablet (senna) 8.6 mg PO DAILY PRN Constipation 10/29/22 08/22/23 sodium phosphates 19 gram-7 118 ml FL DAILY PRN Constipation 10/29/22 08/22/23 gram/118 mL enema (Fleet Enema) cranberry fruit 450 mg tablet 450 mg PO DAILY 08/22/23 08/22/23 (cranberry) insulin glargine 100 unit/mL (3 10 unit subcut BEDTIME 08/22/23 08/22/23 mL) subcutaneous pen (Lantus Solostar U-100 Insulin) loperamide 2 mg capsule 2 mg PO Q6H PRN Loose Stool 08/22/23 08/22/23 ondansetron 4 mg disintegrating 4 mg PO Q6H PRN Nausea And Vomiting 08/22/23 08/22/23 tablet phenytoin 50 mg chewable tablet 50 mg PO SUTUTHSA@0900,2100 08/22/23 08/22/23 phenytoin sodium extended 100 mg 100 mg PO SUTUTHSA@0900,209908/22/23 08/22/23 capsule Previous Rx's ?Medication ?Instructions ?Recorded levothyroxine 100 mcg tablet 100 mcg PO DAILY@0600 #30 tabs 08/27/23 (Synthroid) sulfamethoxazole 800 1 tab PO Q12H #24 tabs 08/27/23 mg-trimethoprim 160 mg tablet Allergies Allergy/AdvReac Type Severity Reaction Status Date / Time chlorpromazine Allergy Intermediate HIVES Verified 02/16/24 00:22 [CHLORPROMAZINE] Review of Systems Review of Systems: Constitutional : No Weight loss, No Fever, No Chills, No Night Sweats, No Fatigue, No Malaise ENT/Mouth : No Hearing loss, No Ear Pain, No Nasal Congestion, No Sinus Pain, No Hoarseness, No sore throat, No Rhinorrhea, No Swallowing Difficulty Eyes: No Eye Pain, No Swelling, No Redness, No Foreign Body, No Discharge, No Vision Changes Cardiovascular : Complaining of 19 hours of chest pain,, No SOB, No Dyspnea on Exertion, No Orthopnea, No Edema, No Palpitations Respiratory : No Cough, No Sputum, No Wheezing, No Smoke Exposure, No Dyspnea Gastrointestinal : No Nausea, No Vomiting, No Diarrhea, No Constipation, No abdominal Pain, No Hematochezia, No Melena Genitourinary : no irregular bleeding, No Dysuria, No Urinary Frequency, No Hematuria, No Urinary Incontinence, No Urgency, No Flank Pain, No Urinary Flow Changes, No Hesitancy Musculoskeletal : No joint pain, No Myalgias, No Joint Swelling Skin : No Skin Lesions, No rash Neuro : No Weakness, No Numbness, No Paresthesias, No Loss of Consciousness, No Dizziness, No Headache Psych : No Anxiety/Panic, No Depression, No SI/HI/AH/VH, No Social Issues, Heme/Lymph: No Bruising, No Bleeding,No Lymphadenopathy Endocrine : No Polyuria, No Polydipsia, No Temperature Intolerance PMFSH Past Medical History Medical History Adjustment reaction with mixed disturbance of emotions and conduct Anxiety Mood disorder Leiomyoma of body of uterus Preglaucoma Presbyopia UTI (urinary tract infection) Hypothermia Long QT syndrome Sepsis COVID-19 Cystitis Hyperkalemia ESBL (extended spectrum beta-lactamase) producing bacteria infection Essential (primary) hypertension Diabetic retinopathy Anxiety Mood disorder Dementia Subarachnoid hemorrhage following injury TBI (traumatic brain injury) Unspecified dementia with behavioral disturbance Seizure disorder Hypothyroid Hyperlipidemia Diabetes Surgical History Hx of tubal ligation Family History Family History Mother Breast cancer Social History Social History Household Members: Other Housing: [facility] Do you presently have visiting nurse or other home services: No Alcohol intake: never Patient Tobacco Use Status: Never used Tobacco Smoked in Last 30 Days: No Advance Directives: Yes Advance Directives on File: Yes Advance Directives Date on File: 03/23/21 Do you have a plan to hurt others: No Plan service: No Current occupational status: disabled Physical Exam ED Vital Signs: Vital Signs - 24 hr 02/16/24 00:28 Temperature 98.0 F Pulse Rate 84 Respiratory Rate 18 Blood Pressure 136/77 Pulse Oximetry 97 Oxygen Delivery Method Room Air BMI result Body Mass Index 29.7 Medical Decision Making Medical Decision Making [facility] Narrative: -my interpretation of labs, normal hematology and chemistry, at baseline. Troponin negative -my interpretation of EKG: Normal sinus rhythm, heart rate 73, no ST segment depression or elevation, no T-wave inversion, QTC 434 -patient's vitals stable, patient is asymptomatic -patient's physical exam is reassuring. -patient states that she feels well to go back home. Differential Diagnosis Differential Diagnoses: The differential diagnosis associated with the presentation includes (ACS, musculoskeletal pain, anxiety) Admission/Observation Consideration of admission/observation: Escalation of care including admission/observation considered (Given patient's symptoms, observation considered) Lab Data [facility] Lab Attestation statement: I reviewed the patient's lab results. 02/16/24 00:54 02/16/24 00:54 Labs: Lab Results 02/16/24 Range/Units 00:54 WBC 5.4 (4.8-10.8) X10*3/uL RBC 3.60 L (4.20-5.50) X10*6/uL Hgb 10.5 L (12.0-16.0) g/dl Hct 31.5 L (37.0-47.0) % MCV 87.5 (80.0-98.0) fL MCH 29.2 (27.0-33.0) pg MCHC 33.3 (31.0-35.0) g/dl RDW 13.5 (11.0-16.0) % Plt Count 199 D (160-400) X10*3/uL MPV 10.1 (9.4-12.3) fL Immature Gran % (Auto) 0.2 (0.0-0.4) % Neut % (Auto) 51.1 (45-73) % Lymph % (Auto) 39.5 (20-40) % [place] % (Auto) 8.1 (2-11) % Eos % (Auto) 0.9 (0-4) % Baso % (Auto) 0.2 (0-2) % Lymph # (Auto) 2.1 (1.2-4.9) X10*3/uL [place] # (Auto) 0.4 (0.1-1.2) X10*3/uL Eos # (Auto) 0.1 (0.0-0.4) X10*3/uL Baso # (Auto) 0.0 (0.0-0.2) X10*3/uL Abs Immat Gran (auto) 0.01 (0.00-0.03) X10*3/uL Absolute Neuts (auto) 2.8 (2.0-8.3) x10*3/uL Absolute Nucleated RBC 0.000 (0.0-0.012) X10*3/uL Nucleated RBC % (auto) 0.0 (0.0-0.2) /100WBC Sodium 138 (135-145) mmol/L Potassium 4.1 (3.3-5.1) mmol/L Chloride 104 (96-108) mmol/L Carbon Dioxide 23 (22-29) mmol/L Anion Gap 15 (12-20) BUN 25 H (9-16) mg/dL Creatinine 1.27 (0.5-1.4) mg/dL Estim Creat Clear Calc 60.9 Estimated GFR 44 Random Glucose 170 H (60-115) mg/dL Calcium 9.4 (8.4-10.2) mg/dL Magnesium 1.7 (1.6-2.6) mg/dL Total Bilirubin 0.1 (0.0-1.0) mg/dL AST 14 (5-31) U/L ALT 16 (0-31) U/L Alkaline Phosphatase 151 H (39-117) U/L Troponin I High Sens 9.3 (<3.5-17.0) ng/L Total Protein 7.8 (6.5-8.0) g/dL Albumin 3.9 (3.5-5.0) g/dL Independent Interpretation I performed an independent interpretation of an: EKG Independent Historian Clinical information obtained from an independent historian. History obtained from or confirmed by: EMS Critical Care Time Critical Care Time Critical Care Time: Yes Total Critical Care Time: 30 Attestation: I have personally provided critical care time. Time includes review of lab data, radiology results, discussion with consultants, and monitoring for potential decompensation. Intervention performed as documented. Discharge Plan Discharge Clinical Impression: Atypical chest pain Patient Disposition: Home, Self-Care Instructions: Chest Pain (ED) Additional Instructions: Please follow-up with your primary care physician tomorrow. If you have any worsening or new symptoms, please return to the emergency room or call 911 Prescriptions: No Action quetiapine 25 mg Tablet 25 mg PO BEDTIME oxcarbazepine [Trileptal] 150 mg Tablet 150 mg PO DAILY sennosides [senna] 8.6 mg Tablet 8.6 mg PO DAILY PRN (Reason: Constipation) acetaminophen 325 mg Tablet 650 mg PO Q6H PRN (Reason: Pain) gabapentin 600 mg Tablet 600 mg PO TID haloperidol 5 mg Tablet 5 mg PO BID atorvastatin 10 mg Tablet 10 mg PO BEDTIME phenytoin sodium extended 200 mg Capsule 200 mg PO MOWEFR@0900,2100 oxcarbazepine [Trileptal] 300 mg Tablet 300 mg PO BEDTIME guaifenesin 100 mg/5 mL Liquid 200 mg PO Q4H PRN (Reason: Cough) insulin aspart U-100 [Novolog U-100 Insulin aspart] 100 unit/mL Solution 1 sliding scale dose SUBCUT USEASDIRECTD Protocol: Insulin Correction Scale Less than or equal to 110 ---- Give (units): 0 111 to 150 Give (units): 0 151 to 200 Give (units): 2 201 to 250 Give (units): 2 251 to 300 Give (units): 4 301 to 350 Give (units): 6 Greater than 350 Give (units): 8 Call MD if Blood Glucose > : 350 metformin 1,000 mg Tablet 1,000 mg PO BID haloperidol 10 mg Tablet 10 mg PO BID benztropine 1 mg Tablet 1 mg PO BID Fleet Enema 19-7 gram/118 mL Enema 118 ml FL DAILY PRN (Reason: Constipation) docusate sodium 100 mg Capsule 100 mg PO BID hydroxyzine HCl 25 mg Tablet 25 mg PO BID ibuprofen 600 mg Tablet 600 mg PO Q8H PRN (Reason: Pain) levetiracetam 1,000 mg Tablet 1,000 mg PO BID calcium carbonate-vitamin D3 [Calcium 600 + D(3)] 600 mg-10 mcg (400 unit) Tablet 2 tab PO DAILY cholecalciferol (vitamin D3) 1,250 mcg (50,000 unit) Capsule 1,250 mcg PO MO@0900 ferrous sulfate 324 mg (65 mg iron) Tablet,Delayed Release (Dr/Ec) 324 mg PO DAILY loperamide 2 mg Capsule 2 mg PO Q6H PRN (Reason: Loose Stool) phenytoin sodium extended 100 mg Capsule 100 mg PO SUTUTHSA@0900,2100 phenytoin 50 mg Tablet,Chewable 50 mg PO SUTUTHSA@0900,2100 ondansetron 4 mg Tablet,Disintegrating 4 mg PO Q6H PRN (Reason: Nausea And Vomiting) cranberry 450 mg Tablet 450 mg PO DAILY Rx Instructions: administer with a meal insulin glargine [Lantus Solostar U-100 Insulin] 100 unit/mL (3 mL) insulin pen 10 unit SUBCUT BEDTIME levothyroxine [Synthroid] 100 mcg Tablet 100 mcg PO DAILY@0600 Qty: 30 0RF sulfamethoxazole-trimethoprim 800-160 mg Tablet 1 tab PO Q12H Qty: 24 0RF Print Language: Kazakh
--- NOTE | 2024-02-16 02:08 | PC.NURSE ---
called and gave nurse to nurse report at [facility]
[2024-02-16 02:14] VITALS: BP 136/77; PULSE 84; RESP 18; TEMP 36.7; O2SAT 97
--- NOTE | 2024-02-16 02:14 | PC.NURSE ---
nurse to nurse report given to RN at [facility]
== END 2024-02-16 02:33 | disposition home or self-care (01) ==
PROVIDERS: Emergency Provider Emergency Medicine; PCP Hospitalist
DX: R07.89 Other chest pain (principal); Z79.899 Other long term (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
CPT/HCPCS: 36415; 80053; 83735; 84484; 85025; 93005; 99283; 99284

== ENCOUNTER → 2024-02-16 00:35 | Outpatient (BNV) | payer MEDICAID, SELFPAY | PROVIDERS: Emergency Provider Emergency Medicine; PCP Hospitalist; Visit Provider Internal Medicine Cardiovascular Disease | DX: R94.31 Abnormal electrocardiogram [ECG] [EKG] (principal) | CPT/HCPCS: 93010 ==

== ENCOUNTER 2024-02-26 20:41 | Emergency (ER) | payer MEDICAID, SELFPAY ==
--- NOTE | ~2024-02-26 | CT_ITS ---
EXAMINATION: CT HEAD WITHOUT CONTRAST CT CERVICAL SPINE WITHOUT CONTRAST CLINICAL INFORMATION: Pain. Altered. COMPARISON: None available. TECHNIQUE: Contiguous axial imaging was performed through the head and cervical spine without intravenous administration of contrast. Sagittal and coronal reformatted images also obtained This CT examination was performed using dose optimization techniques as appropriate, variously including the following: *Automated exposure control *Adjustment of mA and/or kV according to patient size (this includes techniques or standardized protocols for targeted exams where dose is matched to indication/reason for exam; i.e. extremities or head) *Use of iterative reconstruction technique DLP: 1747 mGy-cm FINDINGS: Motion limits evaluation. The lateral, third and fourth ventricles are normally outlined. The cortical sulci and basal cisterns are normally outlined as well. There is no acute territorial defect, hemorrhage or midline shift. The extra-axial spaces are unremarkable. Calvarium/scalp: Intact. Maxillofacial sinuses and mastoids: Clear as visualized. Cervical spine: The alignment is within normal limits. There is mild degenerative changes at C5-C6 and C6-C7 with mild loss of disc space, endplate change and mild osteophyte formation associated with mild diffuse facet osteoarthritic hypertrophic change with mild spinal canal and neuroforaminal narrowing. No fracture is seen. The soft tissues are unremarkable. The visualized upper lung de [place] ve[place] are clear. CT/CT head/brain wo IV con IMPRESSION: Motion slightly limits evaluation. 1. No acute intracranial process seen. 2. Mild degenerative changes C5-C6 and C6-C7 disc levels with mild spinal canal and neuroforaminal narrowing.
--- NOTE | ~2024-02-26 | XR_ITS ---
EXAMINATION: XR HUMERUS, LEFT CLINICAL INFORMATION: Fall COMPARISON: None available. TECHNIQUE: AP and lateral views of the left humerus. FINDINGS: There is a transverse fracture through the mid humeral diaphysis with medial displacement of the distal fracture fragment and marked dorsal angulation. No other fractures are seen. XR/XR humerus LT IMPRESSION: Displaced and angulated mid humeral fracture.
--- NOTE | ~2024-02-26 | XR_ITS ---
EXAMINATION: XR CHEST CLINICAL INFORMATION: Preop COMPARISON: 07/17/2022 along with 2 view chest 03/31/2021 TECHNIQUE: Frontal view of the chest was obtained. FINDINGS: There is mild cardiomegaly present. No other significant abnormality is noted involving the heart, lungs, mediastinum, bony thorax or soft tissues. XR/XR chest 1V IMPRESSION: Mild cardiomegaly. No acute intrathoracic disease.
--- NOTE | ~2024-02-26 | CT_ITS ---
EXAMINATION: CT HEAD WITHOUT CONTRAST CT CERVICAL SPINE WITHOUT CONTRAST CLINICAL INFORMATION: Pain. Altered. COMPARISON: None available. TECHNIQUE: Contiguous axial imaging was performed through the head and cervical spine without intravenous administration of contrast. Sagittal and coronal reformatted images also obtained This CT examination was performed using dose optimization techniques as appropriate, variously including the following: *Automated exposure control *Adjustment of mA and/or kV according to patient size (this includes techniques or standardized protocols for targeted exams where dose is matched to indication/reason for exam; i.e. extremities or head) *Use of iterative reconstruction technique DLP: 1747 mGy-cm FINDINGS: Motion limits evaluation. The lateral, third and fourth ventricles are normally outlined. The cortical sulci and basal cisterns are normally outlined as well. There is no acute territorial defect, hemorrhage or midline shift. The extra-axial spaces are unremarkable. Calvarium/scalp: Intact. Maxillofacial sinuses and mastoids: Clear as visualized. Cervical spine: The alignment is within normal limits. There is mild degenerative changes at C5-C6 and C6-C7 with mild loss of disc space, endplate change and mild osteophyte formation associated with mild diffuse facet osteoarthritic hypertrophic change with mild spinal canal and neuroforaminal narrowing. No fracture is seen. The soft tissues are unremarkable. The visualized upper lung de [place] are clear. CT/CT cervical spine wo IV con IMPRESSION: Motion slightly limits evaluation. 1. No acute intracranial process seen. 2. Mild degenerative changes C5-C6 and C6-C7 disc levels with mild spinal canal and neuroforaminal narrowing.
--- NOTE | 2024-02-26 20:49 | MHC.EDTECH ---
pt ripped neck collar off and does not let us take her vital signs.
[2024-02-26 20:56] VITALS: PULSE 96; O2SAT 99; BMI 22.6
[2024-02-26 21:07] VITALS: BP 162/97; PULSE 97; RESP 16; TEMP 36.6
--- NOTE | 2024-02-26 21:41 | ED.FALL ---
HPI - Fall General Chief Complaint: Fall Stated Complaint: FALL, UNK LOC OR HEADSTRIKE,MORE ALTERED THAN BASE Time Seen by Provider: 02/26/24 21:00 Source: patient Mode of arrival: EMS Limitations: no limitations History of Present Illness ED Provider: nelly CM Narrative: Patient's history of TBI seizure disorder diabetic came from facility for unwitnessed fall with obvious deformity of left humerus no signs of other injuries patient very poor historian unable to communicate other than complaining of pain in the left arm moving her neck freely no signs of injury to the head or pelvis Related Data Home Medications ?Medication ?Instructions ?Recorded ?Confirmed acetaminophen 325 mg tablet 650 mg PO Q6H PRN Pain 10/29/22 08/22/23 atorvastatin 10 mg tablet 10 mg PO BEDTIME 10/29/22 08/22/23 benztropine 1 mg tablet 1 mg PO BID 10/29/22 08/22/23 calcium carbonate 600 mg-vitamin 2 tab PO DAILY 10/29/22 08/22/23 D3 10 mcg (400 unit) tablet (Calcium 600 + D(3)) cholecalciferol (vitamin D3) 1,250 1,250 mcg PO MO@0900 10/29/22 08/22/23 mcg (50,000 unit) capsule docusate sodium 100 mg capsule 100 mg PO BID 10/29/22 08/22/23 ferrous sulfate 324 mg (65 mg 324 mg PO DAILY 10/29/22 08/22/23 iron) tablet,delayed release gabapentin 600 mg tablet 600 mg PO TID 10/29/22 08/22/23 guaifenesin 100 mg/5 mL oral liquid 200 mg PO Q4H PRN Cough 10/29/22 08/22/23 haloperidol 10 mg tablet 10 mg PO BID 10/29/22 08/22/23 haloperidol 5 mg tablet 5 mg PO BID 10/29/22 08/22/23 hydroxyzine HCl 25 mg tablet 25 mg PO BID 10/29/22 08/22/23 ibuprofen 600 mg tablet 600 mg PO Q8H PRN Pain 10/29/22 08/22/23 insulin aspart U-100 100 unit/mL 1 sliding scale dose subcut 10/29/22 08/22/23 subcutaneous solution (Novolog USEASDIRECTD U-100 Insulin aspart) levetiracetam 1,000 mg tablet 1,000 mg PO BID 10/29/22 08/22/23 metformin 1,000 mg tablet 1,000 mg PO BID 10/29/22 08/22/23 oxcarbazepine 150 mg tablet 150 mg PO DAILY 10/29/22 08/22/23 (Trileptal) oxcarbazepine 300 mg tablet 300 mg PO BEDTIME 10/29/22 08/22/23 (Trileptal) phenytoin sodium extended 200 mg 200 mg PO MOWEFR@0900,209910/29/22 08/22/23 capsule quetiapine 25 mg tablet 25 mg PO BEDTIME 10/29/22 08/22/23 sennosides 8.6 mg tablet (senna) 8.6 mg PO DAILY PRN Constipation 10/29/22 08/22/23 sodium phosphates 19 gram-7 118 ml NE DAILY PRN Constipation 10/29/22 08/22/23 gram/118 mL enema (Fleet Enema) cranberry fruit 450 mg tablet 450 mg PO DAILY 08/22/23 08/22/23 (cranberry) insulin glargine 100 unit/mL (3 10 unit subcut BEDTIME 08/22/23 08/22/23 mL) subcutaneous pen (Lantus Solostar U-100 Insulin) loperamide 2 mg capsule 2 mg PO Q6H PRN Loose Stool 08/22/23 08/22/23 ondansetron 4 mg disintegrating 4 mg PO Q6H PRN Nausea And Vomiting 08/22/23 08/22/23 tablet phenytoin 50 mg chewable tablet 50 mg PO SUTUTHSA@0900,209908/22/23 08/22/23 phenytoin sodium extended 100 mg 100 mg PO SUTUTHSA@0900,209908/22/23 08/22/23 capsule Previous Rx's ?Medication ?Instructions ?Recorded levothyroxine 100 mcg tablet 100 mcg PO DAILY@0600 #30 tabs 08/27/23 (Synthroid) sulfamethoxazole 800 1 tab PO Q12H #24 tabs 08/27/23 mg-trimethoprim 160 mg tablet Allergies Allergy/AdvReac Type Severity Reaction Status Date / Time chlorpromazine Allergy Intermediate HIVES Verified 02/26/24 21:01 [CHLORPROMAZINE] Review of Systems Review of Systems: Yes all other systems are reviewed and are negative PMFSH Past Medical History Medical History Adjustment reaction with mixed disturbance of emotions and conduct Anxiety Mood disorder Leiomyoma of body of uterus Preglaucoma Presbyopia UTI (urinary tract infection) Hypothermia Long QT syndrome Sepsis COVID-19 Cystitis Hyperkalemia ESBL (extended spectrum beta-lactamase) producing bacteria infection Essential (primary) hypertension Diabetic retinopathy Anxiety Mood disorder Dementia Subarachnoid hemorrhage following injury TBI (traumatic brain injury) Unspecified dementia with behavioral disturbance Seizure disorder Hypothyroid Hyperlipidemia Diabetes Surgical History Hx of tubal ligation Family History Family History Mother Breast cancer Social History Social History Household Members: Other Housing: [facility]f Do you presently have visiting nurse or other home services: No Alcohol intake: never Patient Tobacco Use Status: Never used Tobacco Advance Directives: Yes Advance Directives on File: Yes Advance Directives Date on File: 03/23/21 service: No Current occupational status: disabled Physical Exam Vital Signs: Vital Signs: Last Vital Signs Temp 97.4 F 02/27/24 00:00 Pulse 103 H 02/27/24 00:00 Resp 16 02/27/24 00:00 BP 124/92 H 02/27/24 00:00 Pulse Ox 98 02/27/24 00:00 O2 Del Method Room Air 02/27/24 00:00 BMI result Body Mass Index 22.6 Appearance: Alert. And awake Eyes: PERRLA, No Nystagmus ENT: Pharynx normal. Oral Mucosa moist Neck: Normal inspection. Neck supple. Atraumatic normocephalic CVS: Normal heart rate and rhythm. Pulses normal. Respiratory: No respiratory distress. Equal air entry bilateral, no wheezing/rales/rhonchi Abdomen: Soft and nontender. Bowel sounds are present, no mass palpable, no CVA tenderness Skin: Skin warm and dry. Normal skin color. Normal skin turgor. Extremities: No lower extremity edema. No calf tenderness left arm with obvious deformity of humerus shaft fracture on the left side neurovascular intact Neuro: Alert and awake. No motor deficit. No sensory deficit.No cerebellar signs , cranial nerves II-XII intact Course Course Course Narrative: e Medications Administered Discontinued Medications Generic Name Dose Route Start Last Admin Trade Name Melissa PRN Reason Stop Dose Admin Morphine Sulfate 4 mg 02/26/24 21:43 02/26/24 21:51 Morphine Sulfate 4 Mg/Ml Cartridge IM 02/26/24 21:44 4 mg ONCE ONE Administration Protocol Nitrofurantoin Macrocrystals 100 mg 02/27/24 00:08 02/27/24 00:29 Nitrofurantoin Monohyd/M-Cryst 100 Mg Capsule PO 02/27/24 00:09 Not Given ONCE ONE Procedures Orthopedic Splinting/Casting Injury #1: Side: left Upper Extremity Injury Location: upper arm Upper Extremity Immobilizer: sling/shoulder immobilizer and posterior splint Medical Decision Making Medical Decision Making [facility] Narrative: Patient is status post mechanical fall with left humerus shaft fracture recent UTI with E coli came after mechanical fall unwitnessed case discussed with aden HECK about the fracture advised posterior arm splint follow up in 1 week as outpatient will check the labs Differential Diagnosis Differential Diagnoses: The differential diagnosis associated with the presentation includes Admission/Observation Consideration of admission/observation: Escalation of care including admission/observation considered Consult Healthcare Provider Management of the patient was discussed with: Senior Production Manager Aden Gregg Lab Data [facility] Lab Attestation statement: I reviewed the patient's lab results. 02/26/24 23:26 02/26/24 23:26 Labs: Lab Results 02/26/24 Range/Units 23:26 WBC 9.3 (4.8-10.8) X10*3/uL RBC 3.67 L (4.20-5.50) X10*6/uL Hgb 10.8 L (12.0-16.0) g/dl Hct 31.7 L (37.0-47.0) % MCV 86.4 (80.0-98.0) fL MCH 29.4 (27.0-33.0) pg MCHC 34.1 (31.0-35.0) g/dl RDW 13.4 (11.0-16.0) % Plt Count 220 (160-400) X10*3/uL MPV 10.4 (9.4-12.3) fL Immature Gran % (Auto) 0.3 (0.0-0.4) % Neut % (Auto) 84.7 H (45-73) % Lymph % (Auto) 10.0 L (20-40) % [place] % (Auto) 4.7 (2-11) % Eos % (Auto) 0.1 (0-4) % Baso % (Auto) 0.2 (0-2) % Lymph # (Auto) 0.9 L (1.2-4.9) X10*3/uL [place] # (Auto) 0.4 (0.1-1.2) X10*3/uL Eos # (Auto) 0.0 (0.0-0.4) X10*3/uL Baso # (Auto) 0.0 (0.0-0.2) X10*3/uL Abs Immat Gran (auto) 0.03 (0.00-0.03) X10*3/uL Absolute Neuts (auto) 7.9 (2.0-8.3) x10*3/uL Absolute Nucleated RBC 0.000 (0.0-0.012) X10*3/uL Nucleated RBC % (auto) 0.0 (0.0-0.2) /100WBC Sodium 130 L (135-145) mmol/L Potassium 4.7 (3.3-5.1) mmol/L Chloride 96 (96-108) mmol/L Carbon Dioxide 18 L (22-29) mmol/L Anion Gap 21 H (12-20) BUN 15 (9-16) mg/dL Creatinine 0.97 (0.5-1.4) mg/dL Estim Creat Clear Calc 62.1 Estimated GFR 60 Random Glucose 277 H (60-115) mg/dL Calcium 9.7 (8.4-10.2) mg/dL Magnesium 1.4 L* (1.6-2.6) mg/dL Total Bilirubin 0.2 (0.0-1.0) mg/dL AST 29 (5-31) U/L ALT 17 (0-31) U/L Alkaline Phosphatase 168 H (39-117) U/L Total Protein 8.1 H (6.5-8.0) g/dL Albumin 4.5 (3.5-5.0) g/dL Phenytoin 13.3 (10.0-20.0) ug/mL Independent Interpretation I performed an independent interpretation of an: EKG and CT Scan Interpretation: Normal sinus rhythm heart rate 84 beats per minute normal intervals no acute ST-T changes no acute ischemia Radiology Impression Discussion of test interpretation with radiology: I have reviewed the radiologist's reading. Discharge Plan Discharge Clinical Impression: Closed left humeral fracture Patient Disposition: er [facility] Transfer Details: You have left humerus shaft fracture wear the splint until seen by specialists in 7-10 days Instructions: Arm Fracture in Adults (ED) Additional Instructions: Follow with Orthopedics in 7-10 days Keep the left arm in splint Tylenol for pain Prescriptions: No Action quetiapine 25 mg Tablet 25 mg PO BEDTIME oxcarbazepine [Trileptal] 150 mg Tablet 150 mg PO DAILY sennosides [senna] 8.6 mg Tablet 8.6 mg PO DAILY PRN (Reason: Constipation) acetaminophen 325 mg Tablet 650 mg PO Q6H PRN (Reason: Pain) gabapentin 600 mg Tablet 600 mg PO TID haloperidol 5 mg Tablet 5 mg PO BID atorvastatin 10 mg Tablet 10 mg PO BEDTIME phenytoin sodium extended 200 mg Capsule 200 mg PO MOWEFR@0900,2100 oxcarbazepine [Trileptal] 300 mg Tablet 300 mg PO BEDTIME guaifenesin 100 mg/5 mL Liquid 200 mg PO Q4H PRN (Reason: Cough) insulin aspart U-100 [Novolog U-100 Insulin aspart] 100 unit/mL Solution 1 sliding scale dose SUBCUT USEASDIRECTD Protocol: Insulin Correction Scale Less than or equal to 110 ---- Give (units): 0 111 to 150 Give (units): 0 151 to 200 Give (units): 2 201 to 250 Give (units): 2 251 to 300 Give (units): 4 301 to 350 Give (units): 6 Greater than 350 Give (units): 8 Call MD if Blood Glucose > : 350 metformin 1,000 mg Tablet 1,000 mg PO BID haloperidol 10 mg Tablet 10 mg PO BID benztropine 1 mg Tablet 1 mg PO BID Fleet Enema 19-7 gram/118 mL Enema 118 ml NE DAILY PRN (Reason: Constipation) docusate sodium 100 mg Capsule 100 mg PO BID hydroxyzine HCl 25 mg Tablet 25 mg PO BID ibuprofen 600 mg Tablet 600 mg PO Q8H PRN (Reason: Pain) levetiracetam 1,000 mg Tablet 1,000 mg PO BID calcium carbonate-vitamin D3 [Calcium 600 + D(3)] 600 mg-10 mcg (400 unit) Tablet 2 tab PO DAILY cholecalciferol (vitamin D3) 1,250 mcg (50,000 unit) Capsule 1,250 mcg PO MO@0900 ferrous sulfate 324 mg (65 mg iron) Tablet,Delayed Release (Dr/Ec) 324 mg PO DAILY loperamide 2 mg Capsule 2 mg PO Q6H PRN (Reason: Loose Stool) phenytoin sodium extended 100 mg Capsule 100 mg PO SUTUTHSA@0900,2100 phenytoin 50 mg Tablet,Chewable 50 mg PO SUTUTHSA@0900,2100 ondansetron 4 mg Tablet,Disintegrating 4 mg PO Q6H PRN (Reason: Nausea And Vomiting) cranberry 450 mg Tablet 450 mg PO DAILY Rx Instructions: administer with a meal insulin glargine [Lantus Solostar U-100 Insulin] 100 unit/mL (3 mL) insulin pen 10 unit SUBCUT BEDTIME levothyroxine [Synthroid] 100 mcg Tablet 100 mcg PO DAILY@0600 Qty: 30 0RF sulfamethoxazole-trimethoprim 800-160 mg Tablet 1 tab PO Q12H Qty: 24 0RF Print Language: Amharic
[2024-02-26] MEDS: Morphine Sulfate 4 MG/ML CARTRIDGE IM (21:51)
[2024-02-26 22:00] VITALS: BP 158/77; PULSE 104; RESP 17; O2SAT 100
--- NOTE | 2024-02-26 22:05 | ECG_ITS ---
Test Reason : preop Blood Pressure : / mmHG Vent. Rate : 084 BPM Atrial Rate : 084 BPM P-R Int : 186 ms QRS Dur : 086 ms QT Int : 382 ms P-R-T Axes : 070 030 035 degrees QTc Int : 451 ms Normal sinus rhythm Normal ECG When compared with ECG of 16-FEB-2024 00:35, No significant change was found Referred By: Umberto Dixon Electronically Signed By:Len Munoz
[2024-02-26 23:30] LABS: MANUAL DIFF FLAG NO
[2024-02-26 23:31] LABS: Basophils Percent Auto 0.2 % (0-2); Eosinophils Percent Auto 0.1 % (0-4); Hematocrit 31.7 % (37.0-47.0); Hemoglobin 10.8 g/dl (12.0-16.0); Imm Gran Abs Auto 0.03 X10*3/uL (0.00-0.03); Imm Gran Pct Auto 0.3 % (0.0-0.4); Lymphocytes Absolute Auto 0.9 X10*3/uL (1.2-4.9); Mean Corpuscular HGB Conc 34.1 g/dl (31.0-35.0); Mean Corpuscular Hemoglobin 29.4 pg (27.0-33.0); Mean Corpuscular Volume 86.4 fL (80.0-98.0); Mean Platelet Volume 10.4 fL (9.4-12.3); Monocytes Absolute Auto 0.4 X10*3/uL (0.1-1.2); Monocytes Percent Auto 4.7 % (2-11); Neutrophils Absolute Auto 7.9 x10*3/uL (2.0-8.3); Neutrophils Percent Auto 84.7 % (45-73); Platelet Count 220 X10*3/uL (160-400); Red Blood Count 3.67 X10*6/uL (4.20-5.50); Red Cell Distribution Width 13.4 % (11.0-16.0); White Blood Count 9.3 X10*3/uL (4.8-10.8)
[2024-02-26 23:42] LABS: Phenytoin Dilantin 13.3 ug/mL (10.0-20.0)
[2024-02-26 23:53] LABS: Alanine Aminotransferase 17 U/L (0-31); Albumin Level 4.5 g/dL (3.5-5.0); Alkaline Phosphatase 168 U/L (39-117); Anion Gap 21 (12-20); Aspartate Amino Transferase 29 U/L (5-31); Bilirubin Total 0.2 mg/dL (0.0-1.0); Blood Urea Nitrogen 15 mg/dL (9-16); Calcium 9.7 mg/dL (8.4-10.2); Carbon Dioxide 18 mmol/L (22-29); Chloride 96 mmol/L (96-108); Creatinine Clr Calc Pharmacy 62.1; Estimated Glomerular Filt Rate 60; Glucose Random 277 mg/dL (60-115); Magnesium 1.4 mg/dL (1.6-2.6); Potassium 4.7 mmol/L (3.3-5.1); Sodium 130 mmol/L (135-145); Total Protein 8.1 g/dL (6.5-8.0)
[2024-02-27] VITALS: BP 124/92; PULSE 103; RESP 16; TEMP 36.3; O2SAT 98
--- NOTE | 2024-02-27 02:03 | PC.NURSE ---
report given to [facility] here for transport
[2024-02-27 02:04] VITALS: BP 124/92; PULSE 103; RESP 16; TEMP 36.3; O2SAT 98
== END 2024-02-27 02:04 | disposition skilled nursing facility (03) ==
PROVIDERS: Emergency Provider Internal Medicine; PCP Hospitalist
DX: S42.302A Unspecified fracture of shaft of humerus, left arm, initial encounter for closed fracture (principal); M79.602 Pain in left arm; M54.2 Cervicalgia; R07.89 Other chest pain; R51.9 Headache, unspecified; E11.9 Type 2 diabetes mellitus without complications; I51.7 Cardiomegaly; W01.0XXA Fall on same level from slipping, tripping and stumbling without subsequent striking against object, initial encounter; Y93.01 Activity, walking, marching and hiking; Y92.89 Other specified places as the place of occurrence of the external cause; Y99.8 Other external cause status; Z79.899 Other long term (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; Z87.820 Personal history of traumatic brain injury; Z79.4 Long term (current) use of insulin
CPT/HCPCS: 29105; 36415; 70450; 71045; 72125; 73060; 80053; 80185; 83735; 85025; 93005; 96374; 99284; J2270

== ENCOUNTER → 2024-02-26 22:05 | Outpatient (BNV) | payer MEDICAID, SELFPAY | PROVIDERS: Emergency Provider Internal Medicine; PCP Hospitalist; Visit Provider Internal Medicine Cardiovascular Disease | DX: Z01.818 Encounter for other preprocedural examination (principal) | CPT/HCPCS: 93010 ==

== ENCOUNTER 2024-03-03 07:41 | Outpatient (REF) | payer MEDICAID, SELFPAY ==
--- NOTE | ~2024-03-03 | XR_ITS ---
EXAMINATION: XR HUMERUS, LEFT CLINICAL INFORMATION: Pain in unspecified shoulder. COMPARISON: 02/26/2024. TECHNIQUE: 6 views of the left humerus. FINDINGS: Redemonstration of transverse fracture through the mid humeral diaphysis. Overlying dressing/bandage limits visualization. There has been improvement in alignment since the prior exam with mild displacement of fracture fragments. XR/XR humerus LT IMPRESSION: Redemonstration of transverse fracture through the mid humeral diaphysis. Overlying dressing/bandage limits visualization. There has been improvement in alignment since the prior exam with mild displacement of fracture fragments.
== END 2024-03-03 07:42 | disposition home or self-care (01) ==
LOC: HO.HOSX 07:41
PROVIDERS: Visit Provider Physician Assistant
DX: S42.302A Unspecified fracture of shaft of humerus, left arm, initial encounter for closed fracture (principal); X58.XXXA Exposure to other specified factors, initial encounter; Y93.9 Activity, unspecified; Y92.9 Unspecified place or not applicable; Y99.9 Unspecified external cause status
CPT/HCPCS: 73060; 99202

== ENCOUNTER 2024-03-03 08:32 | Outpatient (AMB) | payer MEDICAID, SELFPAY ==
--- NOTE | 2024-03-03 08:50 | A.OFFVIS_ITS ---
Intake Visit Reasons: FC Left humeral fx, DOI 02/26/24 Intake Note: Katelyn is a 53 year old right hand dominant female who presents today for a evaluation of her left humerus fx, DOi 02/26/24. Patient reports she had a fall and she landed on her left side. Patient currently complains of significant pain in the left arm, she denies numbness. Allergies chlorpromazine [CHLORPROMAZINE] Allergy (Intermediate, Verified 03/03/24 08:53) HIVES HPI HPI FC Left humeral fx, DOI 02/26/24: Details: 53-year-old right hand dominant female who presents in the office today, as a new patient, for an evaluation of left shoulder pain. The patient presented to the ED on 02/26/2024 from a facility after an unwitnessed fall. X-rays were obtained. The patient was placed in a posterior arm splint and sling. ? ? ED note reports the patient is a poor historian and unable to communicate. ? ? While in the office today, the patient reports a fall on her left side on 02/26/2024. She reports significant pain in the left upper extremity. She denies numbness. ? ? Patient currently resides at [facility]. ? ? Patient has a medical history of diabetes mellitus and TBI seizure disorder. ? PFSH Medical History Adjustment reaction with mixed disturbance of emotions and conduct Anxiety Mood disorder Leiomyoma of body of uterus Preglaucoma Presbyopia UTI (urinary tract infection) Hypothermia Long QT syndrome Sepsis COVID-19 Cystitis Hyperkalemia ESBL (extended spectrum beta-lactamase) producing bacteria infection Essential (primary) hypertension Diabetic retinopathy Anxiety Mood disorder Dementia Subarachnoid hemorrhage following injury TBI (traumatic brain injury) Unspecified dementia with behavioral disturbance Seizure disorder Hypothyroid Hyperlipidemia Diabetes Surgical History Hx of tubal ligation Family History Mother Breast cancer Social History Household Members: Other Housing: Jail Do you presently have visiting nurse or other home services: No Alcohol intake: never Patient Tobacco Use Status: Never used Tobacco Advance Directives Date on File: 03/23/21 service: No Current occupational status: disabled Review of Systems Const All systems reviewed & are unremarkable except as noted in HPI and below Physical Exam Const General: cooperative, healthy appearing and no acute distress Orientation/consciousness: patient oriented x3 Resp Effort & Inspection: normal respiratory effort and able to speak in complete sentences Cardio Rate: regular rate Peripheral pulses: Peripheral pulses 2+ throughout GI Palpation (GI): Soft to palpation Skin General skin exam: no rashes or lesions noted Lesions: no lesions Rashes: no rashes Neuro General: patient oriented x3 Extrem Other: Left upper extremity: No ecchymosis, erythema, or edema. Difficulty to assess due to body habitus. Able to flex and extend at the wrist. Able to flex and extend all digits. Patient reports decreased sensation, however, with individual assessment of all digits she reports sensation. Deltoid sensation intact. Radial pulse intact. ? Office Procedures Fracture Care Fracture Billing Code: Fracture Billing Code Assessment & Plan Assessment & Plan (1) Left humeral fracture: Code(s): S42.302A - Unspecified fracture of shaft of humerus, left arm, initial encounter for closed fracture Category: Medical Plan Ms. Peralta is a 53-year-old right hand dominant female who presents in the office today, as a new patient, for an evaluation of left shoulder pain. The patient presented to the ED on 02/26/2024 from a facility after an unwitnessed fall. X-rays were obtained. The patient was placed in a posterior arm splint and sling. ? ED note reports the patient is a poor historian and unable to communicate. ? While in the office today, the patient reports a fall on her left side on 02/26/2024. She reports significant pain in the left upper extremity. She denies numbness. ? Patient currently resides at [facility]. ? Patient has a medical history of diabetes mellitus and TBI seizure disorder. ?? ? The patient was placed in an off the shelf thermal molded humerus fracture brace and ultra sling. She will remain non-weight bearing of the left upper extremity. I encourage gentle ROM of the left hand and wrist. I have suggested an increase in her oxycodone 5-325 mg PO. She reports she is currently taking this TID. I recommended Q4-6H PRN for pain, as the patient reports a significant amount of pain and is tearful in the office today. Follow-up will be in four weeks with repeat x-rays, or sooner if needed. ? ? X-rays of the left upper extremity which were obtained while in the office today and were reviewed by me, Patrica Alejandra PA-C, redemonstrated a mid-shaft humeral fracture with mild displacement. ? X-rays of the left shoulder, obtained on 02/26/2024, revealed: Displaced and angulated mid humeral fracture.? Patient Instructions: Scribed by Jyoti Rollins medical psychotherapist, for Patrica Alejandra PA-C on 03/03/2024 at 8:56 am, EST.? Coding Level of Care Code New Pt Level 4 (75166) Diagnoses Left humeral fracture S42.302A CPT Codes Fracture Care - Fracture Billing Code: Fracture Billing Code ([id number])
== END 2024-03-03 09:24 | disposition home or self-care (01) ==
PROVIDERS: PCP Hospitalist; Visit Provider Physician Assistant
DX: S42.302A Unspecified fracture of shaft of humerus, left arm, initial encounter for closed fracture (principal)
CPT/HCPCS: 99203

== ENCOUNTER 2024-04-15 12:35 | Outpatient (REF) | payer MEDICAID, SELFPAY | END 2024-04-15 12:36 | disposition home or self-care (01) | LOC: HO.HOSX 12:35 | PROVIDERS: Visit Provider Physician Assistant | DX: Z13.89 Encounter for screening for other disorder (principal) ==

== ENCOUNTER 2024-04-17 08:03 | Outpatient (REF) | payer MEDICAID, SELFPAY ==
--- NOTE | ~2024-04-17 | XR_ITS ---
EXAMINATION: XR HUMERUS, LEFT CLINICAL INFORMATION: Fracture follow-up COMPARISON: Radiographs 03/03/2024 TECHNIQUE: AP and lateral views of the left humerus. FINDINGS: Worsening alignment now with one shaft width medial displacement of the mid humeral diaphysis fracture and approximately 1 cm of overriding. There is heterotopic bone in the soft tissues around the fracture, no osseous bridging. XR/XR humerus LT IMPRESSION: Worsening alignment of the mid humeral diaphysis fracture with heterotopic bone formation. No osseous bridging. Electronically signed by: Osvaldo Goyal MD 04/23/2024 09:04 AM EDT
== END 2024-04-17 08:04 | disposition home or self-care (01) ==
LOC: HO.XRAY 08:03
PROVIDERS: PCP Hospitalist; Visit Provider Hospitalist
DX: S42.302A Unspecified fracture of shaft of humerus, left arm, initial encounter for closed fracture (principal); Z91.81 History of falling
CPT/HCPCS: 73060; 99212

== ENCOUNTER 2024-04-17 08:23 | Outpatient (AMB) | payer MEDICAID, SELFPAY ==
--- NOTE | 2024-04-17 08:31 | MHC.OFFVIS ---
Intake Visit Reasons: OV-Left humeral fx follow up, DOI 02/26/24 Intake Note: Katelyn is a 53 year old right hand dominant female who presents today for a evaluation of her left humerus fx, DOi 02/26/24. Patient reports she is still having pain and she feeling that it is getting worse. Patient denies numbness and tingling. Allergies chlorpromazine [CHLORPROMAZINE] Allergy (Intermediate, Verified 04/17/24 08:37) HIVES HPI HPI OV-Left humeral fx follow up, DOI 02/26/24: Details: 53-year-old right hand dominant female who presents in the office today for a follow-up of left shoulder humerus fracture, which occurred on 02/26/24 status post an unwitnessed fall at a facility. I last saw the patient in the office on 03/03/24 when she was placed in a thermal molded humeral fracture brace and ultra sling. She was to remain non-weight bearing on the left upper extremity but able to work on gentle ROM of the left hand and wrist. Her prescription for oxycodone 5-325 mg PO was increased to Q4-6H PRN.? ? While in the office today, the patient reports she is still having pain and feels it is increasing. She denies numbness or tingling. ? PFSH Medical History Adjustment reaction with mixed disturbance of emotions and conduct Anxiety Mood disorder Leiomyoma of body of uterus Preglaucoma Presbyopia UTI (urinary tract infection) Hypothermia Long QT syndrome Sepsis COVID-19 Cystitis Hyperkalemia ESBL (extended spectrum beta-lactamase) producing bacteria infection Essential (primary) hypertension Diabetic retinopathy Anxiety Mood disorder Dementia Subarachnoid hemorrhage following injury TBI (traumatic brain injury) Unspecified dementia with behavioral disturbance Seizure disorder Hypothyroid Hyperlipidemia Diabetes Surgical History Hx of tubal ligation Family History Mother Breast cancer Social History Household Members: Other Housing: [facility] Do you presently have visiting nurse or other home services: No Alcohol intake: never Patient Tobacco Use Status: Never used Tobacco Advance Directives Date on File: 03/23/21 service: No Current occupational status: disabled Review of Systems Const All systems reviewed & are unremarkable except as noted in HPI and below Physical Exam Const General: cooperative and no acute distress Orientation/consciousness: patient oriented x3 Resp Effort & Inspection: normal respiratory effort and able to speak in complete sentences Cardio Rate: regular rate Peripheral pulses: Peripheral pulses 2+ throughout GI Palpation (GI): Soft to palpation Skin General skin exam: no rashes or lesions noted Lesions: no lesions Rashes: no rashes Neuro General: patient oriented x3 Extrem Other: Left upper extremity: No ecchymosis, erythema, or edema. Able to flex and extend all digits. Able to perform full abduction, adduction, finger cross, okay sign and thumbs up without deficit. Deltoid sensation intact. Radial pulse intact. ? Assessment & Plan Assessment & Plan (1) Left humeral fracture: Code(s): S42.302A - Unspecified fracture of shaft of humerus, left arm, initial encounter for closed fracture Category: Medical Plan Ms. Peralta is a 53-year-old right hand dominant female who presents in the office today for a follow-up of left shoulder humerus fracture, which occurred on 02/26/24 status post an unwitnessed fall at a facility. I last saw the patient in the office on 03/03/24 when she was placed in a thermal molded humeral fracture brace and ultra sling. She was to remain non-weight bearing on the left upper extremity but able to work on gentle ROM of the left hand and wrist. Her prescription for oxycodone 5-325 mg PO was increased to Q4-6H PRN.? ? While in the office today, the patient reports she is still having pain and feels it is increasing. She denies numbness or tingling.? ? The patient present to the office today with [facility] The center?s representative phlebotomy services was unable to provide any information in regard to the patient or her progress since the last encounter in the office. X-rays obtained in the office today revealed a left shoulder displacement of the midshaft humeral fracture.?It is unclear if the patient had any new injury to the left upper extremity. The brace is improperly placed at today?s encounter and is too low down the patient?s humerus. I educated the aid in the office where this brace should be. Our MA refit the patient for the brace and adjusted the patient?s sling. I instructed the aid that is important that the patient?s hand and wrist are inside the sling to avoid any possibility of nerve injury at the left wrist. I recommended physical therapy to work on left elbow, wrist, and hand ROM. Follow-up will be in four weeks with repeat x-rays, or sooner if needed. ? ? X-rays of the left shoulder which were obtained while in the office today and were reviewed by me, Patrica Alejandra PA-C, revealed left shoulder displacement of the midshaft humeral fracture.? Orders: Orders XR humerus LT Today S42.302A - Unspecified fracture of shaft of humerus, left arm, initial encounter for closed fracture Patient Instructions: Scribed by Jyoti Rollins, medical surgery nurse, for Patrica Alejandra PA-C on 04/17/2024 at 8:39 am, EST.? Coding Level of Care Code Global (48122) Diagnoses Left humeral fracture S42.302A
== END 2024-04-17 08:54 | disposition home or self-care (01) ==
PROVIDERS: PCP Hospitalist; Visit Provider Physician Assistant
DX: S42.302A Unspecified fracture of shaft of humerus, left arm, initial encounter for closed fracture (principal)
CPT/HCPCS: 99213

== ENCOUNTER 2024-05-06 19:53 | Emergency (ER) | payer MEDICAID, SELFPAY ==
--- NOTE | 2024-05-06 | ECG_ITS ---
Test Reason : FALL Blood Pressure : / mmHG Vent. Rate : 083 BPM Atrial Rate : 083 BPM P-R Int : 192 ms QRS Dur : 078 ms QT Int : 354 ms P-R-T Axes : 081 023 031 degrees QTc Int : 415 ms Normal sinus rhythm Possible Left atrial enlargement Borderline ECG When compared with ECG of 26-FEB-2024 22:33, No significant change was found Referred By: Generic ED Physician Electronically Signed By:MARIAH ARMSTRONG
--- NOTE | ~2024-05-06 | CT_ITS ---
EXAMINATION: CT HEAD WITHOUT CONTRAST CT CERVICAL SPINE WITHOUT CONTRAST CLINICAL INFORMATION: Unwitnessed fall. COMPARISON: CT head and cervical spine from 02/26/2024. TECHNIQUE: Contiguous axial imaging was performed from the skull base to vertex without intravenous administration of contrast. Contiguous axial imaging was performed from the upper chest through the skull base without intravenous administration of contrast. Coronal and sagittal reformats were obtained at the acquisition workstation. This CT examination was performed using dose optimization techniques as appropriate, variously including the following: *Automated exposure control. *Adjustment of mA and/or kV according to patient size (this includes techniques or standardized protocols for targeted exams where dose is matched to indication/reason for exam; i.e. extremities or head). *Use of iterative reconstruction technique. DLP: 1072 mGy-cm FINDINGS: Head: There is no evidence of acute intracranial hemorrhage or edematous territorial infarction. Gomez-white matter differentiation is preserved. There is no abnormal attenuation within the brain parenchyma. The ventricles are normal in morphology and size. No evidence for obstructive hydrocephalus. No abnormal mass effect or midline shift. No extra-axial fluid collections. Moderate subgaleal hematoma along the left parietal bone, measuring up to 0.6 cm in depth. No associated acute osseous abnormalities. Mild mucosal thickening of the paranasal sinuses. The mastoid air cells and middle ear cavities are clear. Cervical Spine: The atlantooccipital and atlantoaxial articulations remain well aligned. Straightening of the normal cervical lordosis. Mild degenerative retrolisthesis of C5 on C6. Otherwise, there is anatomic alignment of the vertebral bodies and posterior elements. No evidence of acute fracture or subluxation. The vertebral body heights are maintained. Moderate degenerative disc disease from C4-C7. There is no prevertebral soft tissue swelling. The thyroid gland is atrophic. The remaining cervical soft tissues are within normal limits. The lung apices demonstrate no abnormalities. CT/CT cervical spine wo IV con IMPRESSION: 1. No evidence of acute intracranial hemorrhage or edematous territorial infarction. 2. No evidence of acute fracture or traumatic subluxation of the cervical spine. 3. Left posterior scalp hematoma. No associated osseous abnormalities. Electronically signed by: Jarod Jacobson DO 05/06/2024 10:18 PM EDT
[2024-05-06 19:53] VITALS: BP 144/84; BP 150/71; PULSE 77; PULSE 80; RESP 16; TEMP 36.7; O2SAT 98; BMI 27.5
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
--- NOTE | 2024-05-06 20:28 | PC.NURSE ---
pt biba from [facility], pt alert and oriented but confused. pt had unwitnessed fall, no LOC no thinners but staff reports head strike. pt noted to have brace in place on left arm but is unable to state from what. per pt paperwork pt noted to have previous TBI. pt denies pain at this time. pt had c collar placed by ems.
--- NOTE | 2024-05-06 20:53 | PC.NURSE ---
attempted to obtain labs x2, pt refused 3rd time at this time. Magdaleno HECK aware.
--- NOTE | 2024-05-06 21:04 | PC.NURSE ---
pt ambulated to bathroom with steady gait, pt noted to still have c collar in place, pt refused to go back to bed until she went to the bathroom.
--- NOTE | 2024-05-06 21:06 | MHC.EDTECH ---
Patient refused blood work, RN aware
[2024-05-06 21:17] LABS: Appearance Urine Clear; Color Urine Yellow; Glucose Urine UA >=1000 mg/dL (Negative); Leukocyte Esterase Urine Negative (Negative); Nitrite Urine Negative (Negative); Specific Gravity - Urine 1.015 (1.005-1.025); UMIC TRIGGER UACC YES; Urine Blood Negative (Negative); Urine Ketones Negative (Negative); Urine Protein Negative (Neg-Trace)
[2024-05-06 21:22] LABS: Bacteria Urine None Seen (None Seen); Hyaline Casts Urine 0-2 /LPF (0-2); RBC Urine 0-2 /HPF (0-2); Squamous Epithelial Cell Urine 0-2 /HPF (0-2); WBC Urine 0-5 /HPF (0-5)
[2024-05-06 21:58] LABS: Influenza A PCR NEGATIVE (Negative); Influenza B PCR NEGATIVE (Negative); Resp Syncy Virus RNA Qual PCR NEGATIVE (Negative); SARS COV2 PCR INHOUSE NEGATIVE (Negative)
[2024-05-06 22:54] VITALS: BP 153/64; PULSE 81; RESP 16; TEMP 37.1; O2SAT 97
--- NOTE | 2024-05-06 22:54 | PC.NURSE ---
Magdaleno HECK cleared pt c spine, collar removed. pt assisted to bedside commode.
[2024-05-06 23:13] LABS: MANUAL DIFF FLAG NO
[2024-05-06 23:16] LABS: Basophils Percent Auto 0.3 % (0-2); Eosinophils Percent Auto 0.1 % (0-4); Hematocrit 27.8 % (37.0-47.0); Hemoglobin 9.3 g/dl (12.0-16.0); Imm Gran Abs Auto 0.02 X10*3/uL (0.00-0.03); Imm Gran Pct Auto 0.3 % (0.0-0.4); Lymphocytes Percent Auto 12.5 % (20-40); Mean Corpuscular HGB Conc 33.5 g/dl (31.0-35.0); Mean Corpuscular Hemoglobin 28.7 pg (27.0-33.0); Mean Corpuscular Volume 85.8 fL (80.0-98.0); Mean Platelet Volume 9.5 fL (9.4-12.3); Monocytes Absolute Auto 0.4 X10*3/uL (0.1-1.2); Monocytes Percent Auto 5.6 % (2-11); Neutrophils Absolute Auto 6.2 x10*3/uL (2.0-8.3); Neutrophils Percent Auto 81.2 % (45-73); Platelet Count 235 X10*3/uL (160-400); Red Blood Count 3.24 X10*6/uL (4.20-5.50); White Blood Count 7.6 X10*3/uL (4.8-10.8)
[2024-05-06 23:31] LABS: Alanine Aminotransferase 11 U/L (0-31); Albumin Level 4.5 g/dL (3.5-5.0); Alkaline Phosphatase 257 U/L (39-117); Anion Gap 15 (12-20); Aspartate Amino Transferase 12 U/L (5-31); Bilirubin Total 0.2 mg/dL (0.0-1.0); Blood Urea Nitrogen 25 mg/dL (9-16); Carbon Dioxide 23 mmol/L (22-29); Chloride 100 mmol/L (96-108); Creatinine Clr Calc Pharmacy 60.6; Estimated Glomerular Filt Rate 46; Glucose Random 229 mg/dL (60-115); Potassium 4.4 mmol/L (3.3-5.1); Sodium 134 mmol/L (135-145); Total Protein 8.6 g/dL (6.5-8.0)
[2024-05-06 23:37] LABS: Troponin-I High Sensitivity 6.9 ng/L (<3.5-17.0)
--- NOTE | 2024-05-06 23:55 | PC.NURSE ---
report given to Iván ZHOU at [facility].
--- NOTE | 2024-05-06 23:57 | MHC.EDTECH ---
Called [facility] at [phone], booked transport to [facility], ETA given by dispatch [id number]
[2024-05-07] VITALS: BP 167/83; PULSE 97; RESP 16; TEMP 36.8; O2SAT 100
[2024-05-07 00:06] LABS: Prothrombin Time 11.6 SEC (11.1-13.3)
[2024-05-07 00:50] VITALS: BP 167/83; PULSE 97; RESP 16; TEMP 36.8; O2SAT 100
== END 2024-05-07 00:51 ==
PROVIDERS: Nurse Practitioner Family; Emergency Provider Emergency Medicine; PCP Hospitalist
DX: S09.90XA Unspecified injury of head, initial encounter (principal); R51.9 Headache, unspecified; R94.31 Abnormal electrocardiogram [ECG] [EKG]; M54.2 Cervicalgia; E11.9 Type 2 diabetes mellitus without complications; I10 Essential (primary) hypertension; W01.0XXA Fall on same level from slipping, tripping and stumbling without subsequent striking against object, initial encounter; Y93.89 Activity, other specified; Y92.098 Other place in other non-institutional residence as the place of occurrence of the external cause; Y99.8 Other external cause status; Z03.818 Encounter for observation for suspected exposure to other biological agents ruled out; Z79.899 Other long term (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; Z87.820 Personal history of traumatic brain injury; Z79.4 Long term (current) use of insulin
CPT/HCPCS: 0241U; 36415; 70450; 72125; 80053; 81001; 84484; 85025; 85610; 93005; 99285

== ENCOUNTER 2024-05-15 08:11 | Outpatient (REF) | payer MEDICAID, SELFPAY ==
--- NOTE | ~2024-05-15 | XR_ITS ---
EXAMINATION: XR HUMERUS, LEFT CLINICAL INFORMATION: S42.302A - Unspecified fracture of shaft of humerus, left arm, initial e... COMPARISON: None available. TECHNIQUE: AP and lateral views of the left humerus. FINDINGS: Redemonstration of a healing mid humeral diaphyseal fracture, with stable override, stable displacement of approximately one shaft width, and similar dorsal lateral angulation by a maximum of May 2 degrees. Overall alignment of findings appear unchanged. Degree of bony callus formation is similar. No additional bony or soft tissue abnormality. XR/XR humerus LT IMPRESSION: 1. Redemonstration of partially healed displaced, overriding, and mildly angulated mid left humeral diaphyseal fracture. 2. Stable alignment. No new finding. Electronically signed by: Pramod Black MD 07/23/2024 03:42 PM TAMIR
== END 2024-05-15 08:12 | disposition home or self-care (01) ==
LOC: HO.HOSX 08:11
PROVIDERS: PCP Hospitalist; Visit Provider Physician Assistant
DX: S42.302A Unspecified fracture of shaft of humerus, left arm, initial encounter for closed fracture (principal)
CPT/HCPCS: 73060; 99212

== ENCOUNTER → 2024-05-15 08:16 | Outpatient (BNV) | payer MEDICAID, SELFPAY | PROVIDERS: PCP Hospitalist; Visit Provider Radiology Diagnostic Radiology | DX: S42.392A Other fracture of shaft of left humerus, initial encounter for closed fracture (principal) | CPT/HCPCS: 73060 ==

== ENCOUNTER 2024-05-15 08:36 | Outpatient (AMB) | payer MEDICAID, SELFPAY ==
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
== END 2024-05-15 08:59 | disposition home or self-care (01) ==
PROVIDERS: PCP Hospitalist; Visit Provider Physician Assistant
DX: S42.302A Unspecified fracture of shaft of humerus, left arm, initial encounter for closed fracture (principal)
CPT/HCPCS: 99213

== ENCOUNTER 2024-07-09 17:59 | Emergency (ER) | payer MEDICAID, SELFPAY ==
--- NOTE | ~2024-07-09 | CT_ITS ---
EXAMINATION: CT HEAD WITHOUT CONTRAST CT CERVICAL SPINE WITHOUT CONTRAST CLINICAL INFORMATION: Fall. COMPARISON: CT head and cervical spine dated 05/06/2024. TECHNIQUE: Contiguous axial imaging was performed from the skull base to vertex without intravenous administration of contrast. Contiguous axial CT images of the cervical spine were obtained without contrast. Sagittal and coronal reformats were provided and reviewed. This CT examination was performed using dose optimization techniques as appropriate, variously including the following: *Automated exposure control *Adjustment of mA and/or kV according to patient size (this includes techniques or standardized protocols for targeted exams where dose is matched to indication/reason for exam; i.e. extremities or head) *Use of iterative reconstruction technique DLP: 1114 mGy-cm. FINDINGS: HEAD: There is no evidence of acute intracranial hemorrhage or territorial infarction. No abnormal mass effect or midline shift is seen. Gomez to white matter differentiation is well preserved. No extra-axial fluid collections are identified. The ventricles are normal in size. There is no abnormal attenuation within the brain parenchyma. Subcutaneous hematoma along the left posterior calvarium. No calvarial fracture. The mastoid air cells and visualized portions of the paranasal sinuses are well aerated. CERVICAL SPINE: Straightening of the normal cervical lordosis, which may be positional or related to a muscular spasm. No acute fracture or subluxation. No loss of vertebral body height. Loss of intervertebral disc height with endplate osteophytes at C4 through C7. Unremarkable facet joints. No lytic or blastic osseous lesion. Unremarkable prevertebral soft tissues. No abnormal soft tissue mass or fluid collection. Thyroid within normal limits. Visualized lung apices are clear. No significant central canal or neural foraminal stenosis. CT/CT head/brain wo IV con IMPRESSION: HEAD:No acute intracranial hemorrhage or mass effect. Subcutaneous hematoma along the left posterior calvarium. No calvarial fracture. CERVICAL SPINE: No acute fracture or subluxation. Straightening of the normal cervical lordosis which may be positional or related to muscular spasm. Mild degenerative disc disease at C4 through C7. Electronically signed by: Jeremie Mena MD 07/09/2024 11:00 PM [facility]
--- NOTE | ~2024-07-09 | CT_ITS ---
EXAMINATION: CT HEAD WITHOUT CONTRAST CT CERVICAL SPINE WITHOUT CONTRAST CLINICAL INFORMATION: Fall. COMPARISON: CT head and cervical spine dated 05/06/2024. TECHNIQUE: Contiguous axial imaging was performed from the skull base to vertex without intravenous administration of contrast. Contiguous axial CT images of the cervical spine were obtained without contrast. Sagittal and coronal reformats were provided and reviewed. This CT examination was performed using dose optimization techniques as appropriate, variously including the following: *Automated exposure control *Adjustment of mA and/or kV according to patient size (this includes techniques or standardized protocols for targeted exams where dose is matched to indication/reason for exam; i.e. extremities or head) *Use of iterative reconstruction technique DLP: 1114 mGy-cm. FINDINGS: HEAD: There is no evidence of acute intracranial hemorrhage or territorial infarction. No abnormal mass effect or midline shift is seen. Gomez to white matter differentiation is well preserved. No extra-axial fluid collections are identified. The ventricles are normal in size. There is no abnormal attenuation within the brain parenchyma. Subcutaneous hematoma along the left posterior calvarium. No calvarial fracture. The mastoid air cells and visualized portions of the paranasal sinuses are well aerated. CERVICAL SPINE: Straightening of the normal cervical lordosis, which may be positional or related to a muscular spasm. No acute fracture or subluxation. No loss of vertebral body height. Loss of intervertebral disc height with endplate osteophytes at C4 through C7. Unremarkable facet joints. No lytic or blastic osseous lesion. Unremarkable prevertebral soft tissues. No abnormal soft tissue mass or fluid collection. Thyroid within normal limits. Visualized lung apices are clear. No significant central canal or neural foraminal stenosis. CT/CT cervical spine wo IV con IMPRESSION: HEAD:No acute intracranial hemorrhage or mass effect. Subcutaneous hematoma along the left posterior calvarium. No calvarial fracture. CERVICAL SPINE: No acute fracture or subluxation. Straightening of the normal cervical lordosis which may be positional or related to muscular spasm. Mild degenerative disc disease at C4 through C7. Electronically signed by: Jeremie Mena MD 07/09/2024 11:00 PM [facility]
[2024-07-09 18:04] VITALS: BP 153/66; BP 168/70; PULSE 77; PULSE 80; RESP 16; TEMP 36.6; O2SAT 100; O2SAT 97; BMI 30.2
--- NOTE | 2024-07-09 18:10 | ED_ITS ---
HPI - Fall General Chief Complaint: Seizure Stated Complaint: snf, fall after seizure, post ictal Time Seen by Provider: 07/09/24 18:09 Source: patient Mode of arrival: EMS Limitations: no limitations History of Present Illness ED Provider: nelly CM Narrative: patient's history of seizure disorder, schizoaffective disorder comes from assisted as the sore on the floor after the fall possible she had a seizure which she had multiple times in the past patient is on Trileptal and Dilantin per staff dilated level was within normal limits last week Related Data Home Medications ?Medication ?Instructions ?Recorded ?Confirmed acetaminophen 325 mg tablet 650 mg PO Q6H PRN Pain 10/29/22 08/22/23 atorvastatin 10 mg tablet 10 mg PO BEDTIME 10/29/22 08/22/23 benztropine 1 mg tablet 1 mg PO BID 10/29/22 08/22/23 calcium 600 mg (as 2 tab PO DAILY 10/29/22 08/22/23 carbonate)-vitamin D3 10 mcg (400 unit) tablet (Calcium 600 + D(3)) cholecalciferol (vitamin D3) 1,250 1,250 mcg PO MO@0900 10/29/22 08/22/23 mcg (50,000 unit) capsule docusate sodium 100 mg capsule 100 mg PO BID 10/29/22 08/22/23 ferrous sulfate 324 mg (65 mg 324 mg PO DAILY 10/29/22 08/22/23 iron) tablet,delayed release gabapentin 600 mg tablet 600 mg PO TID 10/29/22 08/22/23 guaifenesin 100 mg/5 mL oral liquid 200 mg PO Q4H PRN Cough 10/29/22 08/22/23 haloperidol 10 mg tablet 10 mg PO BID 10/29/22 08/22/23 haloperidol 5 mg tablet 5 mg PO BID 10/29/22 08/22/23 hydroxyzine HCl 25 mg tablet 25 mg PO BID 10/29/22 08/22/23 ibuprofen 600 mg tablet 600 mg PO Q8H PRN Pain 10/29/22 08/22/23 insulin aspart U-100 100 unit/mL 1 sliding scale dose subcut 10/29/22 08/22/23 subcutaneous solution (Novolog USEASDIRECTD U-100 Insulin aspart) levetiracetam 1,000 mg tablet 1,000 mg PO BID 10/29/22 08/22/23 metformin 1,000 mg tablet 1,000 mg PO BID 10/29/22 08/22/23 oxcarbazepine 150 mg tablet 150 mg PO DAILY 10/29/22 08/22/23 (Trileptal) oxcarbazepine 300 mg tablet 300 mg PO BEDTIME 10/29/22 08/22/23 (Trileptal) phenytoin sodium extended 200 mg 200 mg PO MOWEFR@0900,209910/29/22 08/22/23 capsule quetiapine 25 mg tablet 25 mg PO BEDTIME 10/29/22 08/22/23 sennosides 8.6 mg tablet (senna) 8.6 mg PO DAILY PRN Constipation 10/29/22 08/22/23 sodium phosphates 19 gram-7 118 ml SD DAILY PRN Constipation 10/29/22 08/22/23 gram/118 mL enema (Fleet Enema) cranberry fruit 450 mg tablet 450 mg PO DAILY 08/22/23 08/22/23 (cranberry) insulin glargine 100 unit/mL (3 10 unit subcut BEDTIME 08/22/23 08/22/23 mL) subcutaneous pen (Lantus Solostar U-100 Insulin) loperamide 2 mg capsule 2 mg PO Q6H PRN Loose Stool 08/22/23 08/22/23 ondansetron 4 mg disintegrating 4 mg PO Q6H PRN Nausea And Vomiting 08/22/23 08/22/23 tablet phenytoin 50 mg chewable tablet 50 mg PO SUTUTHSA@0900,209908/22/23 08/22/23 phenytoin sodium extended 100 mg 100 mg PO SUTUTHSA@0900,209908/22/23 08/22/23 capsule Previous Rx's ?Medication ?Instructions ?Recorded levothyroxine 100 mcg tablet 100 mcg PO DAILY@0600 #30 tabs 08/27/23 (Synthroid) sulfamethoxazole 800 1 tab PO Q12H #24 tabs 08/27/23 mg-trimethoprim 160 mg tablet Allergies Allergy/AdvReac Type Severity Reaction Status Date / Time chlorpromazine Allergy Intermediate HIVES Verified 07/09/24 18:07 [CHLORPROMAZINE] Review of Systems Review of Systems: Yes Unobtainable due to mental status ( patient refused to answer) [facility] Past Medical History Medical History Adjustment reaction with mixed disturbance of emotions and conduct Anxiety Mood disorder Leiomyoma of body of uterus Preglaucoma Presbyopia UTI (urinary tract infection) Hypothermia Long QT syndrome Sepsis COVID-19 Cystitis Hyperkalemia ESBL (extended spectrum beta-lactamase) producing bacteria infection Essential (primary) hypertension Diabetic retinopathy Anxiety Mood disorder Dementia Subarachnoid hemorrhage following injury TBI (traumatic brain injury) Unspecified dementia with behavioral disturbance Seizure disorder Hypothyroid Hyperlipidemia Diabetes Surgical History Hx of tubal ligation Family History Family History Mother Breast cancer Social History Social History Household Members: Other Housing: Halfway Do you presently have visiting nurse or other home services: No Unable to assess alcohol history related to: Unable to respond and Refusing to respond Alcohol intake: never Patient Tobacco Use Status: Never used Tobacco Smoked in Last 30 Days: No Use of substances other than those prescribed or required for medical reasons: Refusing to respond Advance Directives: Yes Advance Directives on File: Yes Advance Directives Date on File: 03/23/21 Patient : No service: No Current occupational status: disabled Physical Exam Vital Signs: Vital Signs: Last Vital Signs Temp 98.9 F 07/10/24 00:07 Pulse 88 07/10/24 00:07 Resp 16 07/10/24 00:07 BP 152/56 H 07/10/24 00:07 Pulse Ox 100 07/10/24 00:07 O2 Del Method Room Air 07/10/24 00:07 BMI result Body Mass Index 30.2 Appearance: Alert. Oriented X3. No acute distress. Eyes: PERRLA, No Nystagmus ENT: Pharynx normal. Oral Mucosa moist Neck: Normal inspection. Neck supple. no midline tenderness CVS: Normal heart rate and rhythm. Pulses normal. Respiratory: No respiratory distress. Equal air entry bilateral, no wheezing/rales/rhonchi Abdomen: Soft and nontender. Bowel sounds are present, no mass palpable, no CVA tenderness Skin: Skin warm and dry. Normal skin color. Normal skin turgor. Extremities: No lower extremity edema. No calf tenderness Neuro: Oriented X 3. No motor deficit. No sensory deficit.No cerebellar signs , cranial nerves II-XII intact Medications Administered Discontinued Medications Generic Name Dose Route Start Last Admin Trade Name Freq PRN Reason Stop Dose Admin Levetiracetam 1,000 mg 07/09/24 18:19 07/09/24 19:22 Levetiracetam 1,000 Mg Tablet PO 07/09/24 18:20 1,000 mg ONCE ONE Administration Medical Decision Making Medical Decision Making [facility] Narrative: patient has frequent fall frequent seizures from [facility] noncompliant to examination or testing refused to do any lab test patient had recent Dilantin level which was therapeutic according to staff CT scan of the head and C-spine was negative patient sent back to care when advised to follow with her neurologist or PCP Independent Interpretation I performed an independent interpretation of an: CT Scan Radiology Impression Discussion of test interpretation with radiology: I have reviewed the radiologist's reading. Radiologist Impression: negative CT head and C-spine Discharge Plan Discharge Clinical Impression: Epileptic seizure, Fall Patient Disposition: Xfer LTC Transfer Details: CT scan of the head and C-spine negative for acute Instructions: Epilepsy (ED), Fall Prevention (ED) Additional Instructions: continue medications as prescribed by neurologist care and cautions as advised Prescriptions: No Action quetiapine 25 mg Tablet 25 mg PO BEDTIME oxcarbazepine [Trileptal] 150 mg Tablet 150 mg PO DAILY sennosides [senna] 8.6 mg Tablet 8.6 mg PO DAILY PRN (Reason: Constipation) acetaminophen 325 mg Tablet 650 mg PO Q6H PRN (Reason: Pain) gabapentin 600 mg Tablet 600 mg PO TID haloperidol 5 mg Tablet 5 mg PO BID atorvastatin 10 mg Tablet 10 mg PO BEDTIME phenytoin sodium extended 200 mg Capsule 200 mg PO MOWEFR@0900,2100 oxcarbazepine [Trileptal] 300 mg Tablet 300 mg PO BEDTIME guaifenesin 100 mg/5 mL Liquid 200 mg PO Q4H PRN (Reason: Cough) insulin aspart U-100 [Novolog U-100 Insulin aspart] 100 unit/mL Solution 1 sliding scale dose SUBCUT USEASDIRECTD Protocol: Insulin Correction Scale Less than or equal to 110 ---- Give (units): 0 111 to 150 Give (units): 0 151 to 200 Give (units): 2 201 to 250 Give (units): 2 251 to 300 Give (units): 4 301 to 350 Give (units): 6 Greater than 350 Give (units): 8 Call MD if Blood Glucose > : 350 metformin 1,000 mg Tablet 1,000 mg PO BID haloperidol 10 mg Tablet 10 mg PO BID benztropine 1 mg Tablet 1 mg PO BID Fleet Enema 19-7 gram/118 mL Enema 118 ml SD DAILY PRN (Reason: Constipation) docusate sodium 100 mg Capsule 100 mg PO BID hydroxyzine HCl 25 mg Tablet 25 mg PO BID ibuprofen 600 mg Tablet 600 mg PO Q8H PRN (Reason: Pain) levetiracetam 1,000 mg Tablet 1,000 mg PO BID calcium carbonate-vitamin D3 [Calcium 600 + D(3)] 600 mg-10 mcg (400 unit) Tablet 2 tab PO DAILY cholecalciferol (vitamin D3) 1,250 mcg (50,000 unit) Capsule 1,250 mcg PO MO@0900 ferrous sulfate 324 mg (65 mg iron) Tablet,Delayed Release (Dr/Ec) 324 mg PO DAILY loperamide 2 mg Capsule 2 mg PO Q6H PRN (Reason: Loose Stool) phenytoin sodium extended 100 mg Capsule 100 mg PO SUTUTHSA@899,2099 phenytoin 50 mg Tablet,Chewable 50 mg PO SUTUTHSA@0900,2100 ondansetron 4 mg Tablet,Disintegrating 4 mg PO Q6H PRN (Reason: Nausea And Vomiting) cranberry 450 mg Tablet 450 mg PO DAILY Rx Instructions: administer with a meal insulin glargine [Lantus Solostar U-100 Insulin] 100 unit/mL (3 mL) insulin pen 10 unit SUBCUT BEDTIME levothyroxine [Synthroid] 100 mcg Tablet 100 mcg PO DAILY@0600 Qty: 30 0RF sulfamethoxazole-trimethoprim 800-160 mg Tablet 1 tab PO Q12H Qty: 24 0RF Print Language: Setswana
--- NOTE | 2024-07-09 18:58 | PC.NURSE ---
spoke with nurse Menard, sts that pt rec 150mg phenytoin BID last dosed at 0600- PEr Sailaja, sts that seizure was unwitnessed, sts they heard a loud thud and pt was found on floor- pt speaking rousable to verbal stimuli. awating imaging
[2024-07-09] MEDS: levETIRAcetam 1,000 MG TABLET 1000 MG PO (19:22)
[2024-07-09 19:57] VITALS: BP 178/76; PULSE 81; RESP 16; TEMP 36.9; O2SAT 99
--- NOTE | 2024-07-09 20:40 | PC.NURSE ---
seizure precautions in place- CT scan obtained- pt awaiting CT results- NO SEIZURE ACTIVITY SINCE ARRIVAL IN DEPT , vss, call seals within reach
[2024-07-09 22:04] VITALS: BP 173/81; PULSE 81; RESP 16; TEMP 36.8; O2SAT 98
--- NOTE | 2024-07-09 23:10 | MHC.EDTECH ---
this tech assumed care of pt at 2300, when rounding the pt was witnessed sitting up in stretcher, appeared to be in no apparent distress. No needs made aware at this time, call light within reach for safety.
[2024-07-10 00:07] VITALS: BP 152/56; PULSE 88; RESP 16; TEMP 37.2; O2SAT 100
[2024-07-10 01:00] VITALS: BP 152/56; PULSE 88; RESP 16; TEMP 37.2; O2SAT 100
== END 2024-07-10 01:00 ==
PROVIDERS: Emergency Provider Internal Medicine; PCP Hospitalist
DX: R56.9 Unspecified convulsions (principal); R51.9 Headache, unspecified; M54.2 Cervicalgia; Z79.899 Other long term (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
CPT/HCPCS: 70450; 72125; 99284

== ENCOUNTER 2025-06-03 13:03 | Outpatient (AMB) | payer MEDICAID, SELFPAY ==
[2025-06-03 13:08] VITALS: BP 108/62; PULSE 74; O2SAT 100; BMI 28.3
--- NOTE | 2025-06-03 13:08 | A.OFFVIS_ITS ---
Vital Signs 06/03/25 13:08 Height 5 ft 7 in Weight 181 lb BMI 28.3 BP 108/62 Blood Pressure Location Rt brachial Position Sitting Pulse 74 Pulse Source Pulse Oximeter Pulse Oximetry (%) 100 Oxygen Delivery Method Room Air Intake Visit Reasons: [place] screening. Prev refused. Care 1 pt. Intake Note: ESTABLISHED PATIENT for rescreening for colo. Pt has previously denied colo and cologuard but according to executive community planning, pt is agreeable to colo at this time. Chief Complaint; Pt denies any GI sx or concerns at this time. Pt does report having orthopedic concerns with regards to her upper legs, B/L. [employer] Reports Developer Required: No Accompanied by: Apprentice Painter Hand Allergies chlorpromazine (CHLORPROMAZINE) Allergy (Intermediate, Verified 06/12/25 13:06) HIVES HPI HPI [place] screening. Prev refused. Care 1 pt.: Details: 54 year old? female with past medical history of hypothyroidism, hypercholesteremia, adjustment disorder, anxiety, mood disorder, presbyopia, preglaucoma, seizure disorder, cystitis, dementia is here today for pre colonoscopy screening.? Patient was sent to us by her PCP.? This is her first colonoscopy screening.? Patient previously seen in this office and refused colonoscopy twice. Patient reports that she is agreeing to the procedure now. Patient denies any gastrointestinal symptoms in the past or at present.? Denies any personal or family history of gastrointestinal disease, colon polyps, or CRC.? Denies history of difficulty with sedation or anesthesia in the past.? Negative for history of sleep apnea.? Denies any history of cardiac, renal, pulmonary, or hepatic disease.?? No history of infectious? diseases like hepatitis A, B, C, HIV or tuberculosis.? Patient is not on any anticoagulation [facility] Medical History (Updated 06/12/25 @ 22:59 by Adilene Salinas PA-C) Adjustment reaction with mixed disturbance of emotions and conduct Anxiety Mood disorder Leiomyoma of body of uterus Preglaucoma Presbyopia UTI (urinary tract infection) Hypothermia Long QT syndrome Sepsis COVID-19 Cystitis Hyperkalemia ESBL (extended spectrum beta-lactamase) producing bacteria infection Essential (primary) hypertension Diabetic retinopathy Anxiety Mood disorder Dementia Subarachnoid hemorrhage following injury TBI (traumatic brain injury) Unspecified dementia with behavioral disturbance Seizure disorder Hypothyroid Hyperlipidemia Diabetes Surgical History Hx of tubal ligation Family History Mother Breast cancer Social History Household Members: Other Housing: Assisted Do you presently have visiting nurse or other home services: No Alcohol intake: never Patient Tobacco Use Status: Never used Tobacco Advance Directives Date on File: 03/23/21 service: No Current occupational status: disabled Review of Systems Const All systems reviewed & are unremarkable except as noted in HPI and below Card Denies chest pain and Denies dyspnea Resp Denies dyspnea GI Details: Patient denied any GI complaints Denies abdominal pain, Denies change in bowel habits, Denies diarrhea, Denies nausea and Denies vomiting Skin/Breast Reports system reviewed and no additional complaints, except as documented Physical Exam Vital Signs: Last Vital Signs Pulse 74 06/03/25 13:08 BP 108/62 06/03/25 13:08 Pulse Ox 100 06/03/25 13:08 Oxygen Delivery Method Room Air 06/03/25 13:08 BMI result Body Mass Index 28.3 Const General: healthy appearing, no acute distress and well developed Nutritional Appearance: well nourished Orientation/consciousness: patient oriented x3 Resp Effort & Inspection: normal respiratory effort, able to speak in complete sentences, no tracheal deviation and symmetric chest movement Auscultation: clear to auscultation bilaterally Cardio Rate: regular rate GI Inspection: Yes normal to inspection and No distended Palpation (GI): Soft to palpation, not firm, nontender and No hepatosplenomegaly present Auscultation: normal bowel sounds General: Yes no CVA tenderness Back/Spine/Pelvis Back: no CVA tenderness Skin General skin exam: elasticity normal, turgor normal and dry skin Neuro General: patient oriented x3 Psych Appearance: grossly normal Speech and movement: Normal speech and movement present Assessment & Plan Assessment & Plan (1) Screen for colon cancer: Code(s): Z12.11 - Encounter for screening for malignant neoplasm of colon Plan Patient denies any GI, cardiac or respiratory symptoms.? Denies any issues with anesthesia in the past.? Denies any history of sleep apnea.? No history infectious diseases in the past or present.? Not on any anticoagulation therapy.? No family history of colon cancer.? Patient denies melena, hem atochezia, unintentional weight loss or ribbon like stools.? Discussed at length the pre-procedure,? prep, diet & medications as well as what to expect prior, during and after the procedure.?? Stressed the importance of good bowel prep.? Recommended the use of Vaseline or Calmoseptine OTC & baby wipes with bowel movements to promote comfort.? ?Patient verbalizes understanding and agrees to plan of care.? She was given the opportunity to ask questions and all questions answered.? We will see her after the procedure.? All this information was provided also to the staff accompanying patient. Written information given to patient. Thank you for allowing me to participate in her care Orders: Referrals GI Procedure Notification Z12.11 - Encounter for screening for malignant neoplasm of colon Medications: New polyethylene glycol 3350 (Miralax) As directed by gastroenterology department at [facility] 238 grams PO ONCE 238 grams 0RF Z12.11 - Encounter for screening for malignant neoplasm of colon bisacodyl (Dulcolax (bisacodyl)) take 4 tabs at noon the day before your colonoscopy 20 mg (4 x 5 mg) PO ONCE 4 tabs 0RF constipation 1 day Z12.11 - Encounter for screening for malignant neoplasm of colon Coding Level of Care Code New Pt Level 3 (57956) Diagnoses Screen for colon cancer Z12.11 Time Spent (min) 40 Comment 30 minutes spent with patient and additional 10 minutes spent reviewing her records
--- OUTSIDE RECORDS SUMMARY | 2025-06-03 16:20 | XMS_ITS | Encounter Summary ---
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 [place] [address] Roby Roth MD [address] [place] [address] [address] [place] [address] Traumatic subarachnoid hemorrhage without loss of consciousness, sequela (CMS/HCC V24) Social History Tobacco Use Types Packs/Day Years Used Date Smoking Tobacco: Never Assessed Comments Unknown Sex and Gender Information Value Date Recorded Sex Assigned at Not on file Legal Sex Female 7:34 PM EDT Gender Identity Not on file Sexual Orientation Not on file documented as of this encounter Plan of Treatment Not on file documented as of this encounter Visit Diagnoses Diagnosis Traumatic subarachnoid hemorrhage without loss of consciousness, sequela (CMS/HCC V24) documented in this encounter Care Teams Poultry Farmworker Relationship Specialty Start Date End Date Roby Roth MD [address] [place] [address] Dr [address] [place], [place] PCP - General Internal Medicine 09/11/24 documented as of this encounter
--- OUTSIDE RECORDS SUMMARY | 2025-06-03 16:20 | XMS_ITS | Encounter Summary ---
Author Organization [facility] Address [address] [place] [address] Care Team Providers Care Fitter Helper Name Role Phone Roby Roth MD Primary Care Provider [phone] Encounter Details Date Type Department Care Team (Late st Contact Info) Description 02/16/2025 Lab Requisition [facility] - Main Lab [address] [place] [address] Roby Roth MD [address] [place] [address] Dr [address] [place], [place] Hypothyroidism, unspecified Social History Tobacco Use Types Packs/Day Years Used Date Smoking Tobacco: Never Assessed Comments Unknown Sex and Gender Information Value Date Recorded Sex Assigned at Not on file Legal Sex Female 7:34 PM EDT Gender Identity Not on file Sexual Orientation Not on file documented as of this encounter Plan of Treatment Not on file documented as of this encounter Procedures Procedure Name Priority Date/Time Associated Diagnosis Comments SST - GOLD Routine 02/16/2025 6:15 AM EDT Hypothyroidism, unspecified THYROID STIMULATING HORMONE Routine 02/16/2025 6:15 AM EDT Hypothyroidism, unspecified THYROXINE FREE Routine 02/16/2025 6:15 AM EDT Hypothyroidism, unspecified PHENYTOIN LEVEL, TOTAL Routine 02/16/2025 6:15 AM EDT Hypothyroidism, unspecified documented in this encounter Results * SST tube (02/16/2025 6:15 AM EDT) Extra Tube Hold for add-ons. 02/16/2025 8:01 AM EDT [facility] ([facility]) [facility] Comment:Auto resulted. Blood Venous blood specimen / Unknown 02/16/2025 6:15 AM EDT 02/16/2025 7:00 AM EDT us Roby Roth MD LAB BLOOD ORDERABLES Final Resul t Performing Organization Address [facility] Co de Phone Number [facility] [address] [place] [address], [place] [phone] * (ABNORMAL) Phenytoin level total (02/16/2025 6:15 AM EDT) Phenytoin Level 3.7(L) 10.0 - 20.0 mcg/mL LAB CHEMISTRY METHOD 02/16/2025 8:01 AM EDT [facility] Blood Venous blood specimen / Unknown 02/16/2025 6:15 AM EDT 02/16/2025 6:59 AM EDT us Roby Roth MD LAB BLOOD ORDERABLES Final Resul t Performing Organization Address [facility] de Phone Number [facility] [address] [place] [address], [place] [phone] * Thyroxine free (02/16/2025 6:15 AM EDT) Free T4 1.27 0.70 - 1.80 ng/dL LAB CHEMISTRY METHOD 02/16/2025 10:34 AM EDT [facility] Blood Venous blood specimen / Unknown 02/16/2025 6:15 AM EDT 02/16/2025 6:59 AM EDT us Roby Roth MD LAB BLOOD ORDERABLES Final Resul t Performing Organization Address [facility]/ZIP Co de Phone Number [facility] [address] [place] [address], [place] [phone] * Thyroid stimulating hormone (02/16/2025 6:15 AM EDT) TSH 0.99 0.40 - 4.00 mcIU/mL LAB CHEMISTRY METHOD 02/16/2025 10:34 AM EDT [facility] Blood Venous blood specimen / Unknown 02/16/2025 6:15 AM EDT 02/16/2025 6:59 AM EDT us Roby Roth MD LAB BLOOD ORDERABLES Final Resul t [facility] [address] [place] [address], documented in this encounter Visit Diagnoses Diagnosis Hypothyroidism, unspecified documented in this encounter Care Teams Fitter Helper Relationship Specialty Start Date End Date Roby Roth MD [address] [place] [address] Dr [address], [place] PCP - General Internal Medicine 09/11/24 documented as of this encounter
--- OUTSIDE RECORDS SUMMARY | 2025-06-03 16:20 | XMS_ITS | Encounter Summary ---
Author Organization [facility] Address [address] [place] [address] Care Team Providers Care Benzol Operator Name Role Phone Roby Roth MD Primary Care Provider Encounter Details Date Type Department Care Team (Latest Contact Info) Description 04/23/2025 Lab Requisition [facility] - Main Lab [address] [facility] [id number] [place] [address] Roby Roth MD [address] [place] [address] Dr [address] [place], [place] 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 edema, unspecified eye (CMS/HCC V24, CMS/[facility] V28) Social History Tobacco Use Types Packs/Day Years Used Date Smoking Tobacco: Never Assessed Comments Unknown Sex and Gender Information Value Date Recorded Sex Assigned at Not on file Legal Sex Female 7:34 PM EDT Gender Identity Not on file Sexual Orientation Not on file documented as of this encounter Plan of Treatment Not on file documented as of this encounter Visit Diagnoses Diagnosis 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 edema, unspecified eye (CMS/HCC V24, CMS/[facility] V28) documented in this encounter Care Teams Benzol Operator Relationship Specialty Start Date End Date Roby Roth MD [address] [place] [address] Dr [address] [place], [place] PCP - General Internal Medicine 09/11/24 documented as of this encounter
--- OUTSIDE RECORDS SUMMARY | 2025-06-03 16:20 | XMS_ITS | Encounter Summary ---
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; Altered mental status, unspecified Social History Tobacco Use Types Packs/Day [...] Procedure Name Priority Date/Time Associated Diagnosis Comments CBC WITH AUTO DIFFERENTIAL Routine 03/23/2025 7:00 AM EDT Other long-term (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 Altered mental status, unspecified HALOPERIDOL LEVEL Routine 03/23/2025 7:0 0 AM EDT 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 handler (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 Altered mental status, unspecified LEVETIRACETAM LEVEL Routine 03/23/2025 7 :00 AM EDT Other long-term (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 Altered mental status, unspecified CBC AND DIFFERENTIAL Routine 03/23/2025 7:00 AM EDT 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 handler (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 Altered mental status, unspecified THYROID STIMULATING HORMONE Routine 03/23/2025 7:00 AM EDT 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 handler (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 Altered mental status, unspecified AMMONIA Routine 03/23/2025 7:00 AM EDT Other long-term (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 Altered mental status, unspecified PHENYTOIN LEVEL, FREE Routine 03/23/2025 7:00 AM EDT 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5 79.0 - 98.0 FL LAB HEMETOLOGY METHOD 03/23/2025 8:33 AM [facility] MCH 27.9 27.0 - 32.0 pcg LAB HEMETOLOGY METHOD 03/23/2025 8:33 AM [facility] MCHC 31.8(L) 32.0 - 37.0 g/dL LAB HEMETOLOGY METHOD 03/23/2025 8:33 AM [facility] RDW 13.2 11.0 - 15.0 % LAB HEMETOLOGY METHOD 03/23/2025 8:33 AM [facility] Platelets 236 130 - 400 K/mcL LAB HEMETOLOGY METHOD 03/23/2025 8:33 AM [facility] MPV 10.5 7.0 - 11.0 FL LAB HEMETOLOGY METHOD 03/23/2025 8:33 AM [facility] NRBC 0.0 <1.0 % LAB HEMETOLOGY METHOD 03/23/2025 8:33 AM [facility] NRBC Absolute 0.00 <0.10 K/mcL LAB HEMETOLOGY METHOD 03/23/2025 8:33 AM [facility] Neutrophils Relative 44.4 % LAB HEMETOLOGY METHOD 03/23/2025 8:33 AM [facility] Lymphocytes Relative 43.5 % LAB HEMETOLOGY METHOD 03/23/2025 8:33 AM [facility] Monocytes Relative 9.3 % LAB HEMETOLOGY METHOD 03/23/2025 8:33 AM [facility] Eosinophils Relative 2.2 % LAB HEMETOLOGY METHOD 03/23/2025 8:33 AM [facility] Basophils Relative 0.3 % LAB HEMETOLOGY METHOD 03/23/2025 8:33 AM [facility] Immature Granulocytes Relative 0.3 % LAB HEMETOLOGY METHOD 03/23/2025 8:33 AM [facility] Neutrophils Absolute 1.58 1.50 - 7.00 K/mcL LAB HEMETOLOGY METHOD 03/23/2025 8:33 AM [facility] Lymphocytes Absolute 1.55 1.00 - 5.00 K/mcL LAB HEMETOLOGY METHOD 03/23/2025 8:33 AM [facility] Monocytes Absolute 0.33 0.20 - 1.00 K/mcL LAB HEMETOLOGY METHOD 03/23/2025 8:33 AM [facility] Eosinophils Absolute 0.08 0.00 - 0.50 K/mcL LAB HEMETOLOGY METHOD 03/23/2025 8:33 AM EDT [facility] Basophils Absolute 0.01 0.00 - 0.20 K/mcL LAB HEMETOLOGY METHOD 03/23/2025 8:33 AM EDT [facility] Immature Granulocytes Absolute 0.01 0.00 - 0.03 K/[facility] LAB HEMETOLOGY METHOD 03/23/2025 8:33 AM EDT [facility] Blood Venous blood specimen / Unknown 03/23/2025 7:00 AM EDT 03/23/2025 7:43 AM EDT Roby Roth MD LAB BLOOD ORDERABLES Final Resul t [facility] [address] [place] [address], * Levetiracetam level (03/23/2025 7:00 AM EDT) Levetiracetam 36.1 3.0 - 60.0 ug/mL 03/25/2025 5:20 AM EDT [facility] Comment: Steady state trough serum or plasma levels following doses of 1000 to 3000 mg/Day: 3 to 37 ug/mL. The same dosage regimen will typically result in peak levels of 10 to 60 ug/mL, at approximately 1.5 hours post dose. If applicable, any drug confirmation testing reported here was developed and the performance characteristics determined by [facility]. This confirmation testing has not been cleared or approved by the FDA. The laboratory is regulated under CLIA as qualified to perform high-complexity testing. This test is used for patient testing purposes. It should not be regarded as investigational or for research. Test performed at [facility], [address] , [place] [address] Fatemeh Godfrey MD, PhD - Cutter Operator [employer] Blood Venous blood specimen / Unknown 03/23/2025 7:00 AM EDT 03/23/2025 7:43 AM EDT us Roby Roth MD LAB BLOOD ORDERABLES Final Resul t Performing Organization Address City/[facility]/ZIP Co de Phone Number [facility] [address] [place] [address] * (ABNORMAL) Haloperidol level (03/23/2025 7:00 AM EDT) Haloperidol 4(L) 5 - 15 ng/mL 03/31/2025 11:40 PM EDT [facility] Comment: This test was developed and its analytical performance characteristics have been determined by [facility]. It has not been cleared or approved by the FDA. This assay has been validated pursuant to the CLIA regulations and is used for clinical purposes. TEST PERFORMED AT: [facility] [address] [address] EVAN MOSCOSO MD Blood Venous blood specimen / Unknown 03/23/2025 7:00 AM EDT 03/23/2025 7:43 AM EDT us Roby Roth MD LAB BLOOD ORDERABLES Final Resul t Performing Organization Address [facility] Co de Phone Number [facility] [address] [place] [address] * Ammonia (03/23/2025 7:00 AM EDT) Ammonia 23 11 - 35 mcmol/L LAB CHEMISTRY METHOD 03/23/2025 8:41 AM EDT [facility] Blood Venous blood specimen / Unknown 03/23/2025 7:00 AM EDT 03/23/2025 7:43 AM EDT us Roby Roth MD LAB BLOOD ORDERABLES Final Resul t Performing Organization Address City/[facility]/ZIP Co de Phone Number [facility] [address] [place] [address], [place] [phone] * (ABNORMAL) Thyroid stimulating hormone (03/23/2025 7:00 AM EDT) TSH 0.17(L) 0.40 - 4.00 mcIU/mL LAB CHEMISTRY METHOD 03/23/2025 9:50 AM EDT [facility] Blood Venous blood specimen / Unknown 03/23/2025 7:00 AM EDT 03/23/2025 7:43 AM EDT us Roby Roth MD LAB BLOOD ORDERABLES Final Resul t Performing Organization Address [facility] Co de Phone Number [facility] [address] [place] [address], [place] [phone] * (ABNORMAL) Phenytoin level free (03/23/2025 7:00 AM EDT) Phenytoin, Free (Dilantin) <0.8(L) 0.8 - 2.0 ug/mL 03/25/2025 1:11 PM EDT [facility] Comment: Phenytoin free toxic level: >3.0 ug/mL If applicable, any drug confirmation testing reported here was developed and the performance characteristics determined by [facility]. This confirmation testing has not been cleared or approved by the FDA. The laboratory is regulated under CLIA as qualified to perform high-complexity testing. This test is used for patient testing purposes. It should not be regarded as investigational or for research. Test performed at [facility], [address] , [place], [place] [id number] Fatemeh Godfrey MD, PhD - Cutter Operator [employer] Blood Venous blood specimen / Unknown 03/23/2025 7:00 AM EDT 03/23/2025 7:43 AM EDT us Roby Roth MD LAB BLOOD ORDERABLES Final Resul t Performing Organization Address [facility]/ZIP Co de Phone Number [facility] [address] 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
--- OUTSIDE RECORDS SUMMARY | 2025-06-03 16:20 | XMS_ITS | Encounter Summary ---
Author Organization [facility] Address [address] [place] [address] Care Team Providers Care Costuming Supervisor Name Role Phone Roby Roth MD Primary Care Provider [phone] Encounter Details Date Type Department Care Team (Late st Contact Info) Description 03/13/2025 Lab Requisition [facility] - Main Lab [address] [place] [address] Roby Roth MD [address] [place] [address] [address] [place], [place] Unspecified convulsions (CMS/HCC V24, CMS/HCC V28) Social History Tobacco Use Types Packs/Day [...] Procedure Name Priority Date/Time Associated Diagnosis Comments PHENYTOIN LEVEL, TOTAL STAT 03/13/2025 10:55 AM EDT Unspecified convulsions (CMS/HCC V24, CMS/HCC V28) documented in this encounter Results * (ABNORMAL) Phenytoin level total (03/13/2025 10:55 AM EDT) Phenytoin Level 5.9(L) 10.0 - 20.0 mcg/mL LAB CHEMISTRY METHOD 03/13/2025 11:49 AM EDT [facility] ([facility]) [facility] Blood Venous blood specimen / Unknown 03/13/2025 10:55 AM EDT 03/13/2025 11:21 AM EDT us Roby Roth MD LAB BLOOD ORDERABLES Final Resul t [facility] ([facility]) [facility] [address] [place] [address], documented in this encounter Visit Diagnoses Diagnosis Unspecified convulsions (CMS/HCC V24, CMS/HCC V28) documented in this encounter Care Teams Costuming Supervisor Relationship Specialty Start Date End Date Roby Roth MD [address] [place] [address] Dr [address] [place], [place] PCP - General Internal Medicine 09/11/24 documented as of this encounter
--- OUTSIDE RECORDS SUMMARY | 2025-06-03 16:20 | XMS_ITS | Clinical Summary ---
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 05/10/2025 Lab Requisition [facility] [address] [place] [phone] Roby Roth MD Traumatic subarachnoid hemorrhage without loss of consciousness, sequela ([facility] V24) 05/04/2025 Lab Requisition [facility] [address] [place] [phone] Roby Roth MD Other halfway (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 05/02/2025 Lab Requisition [facility] [address] [place] [phone] Roby Roth MD Traumatic subarachnoid hemorrhage without loss of consciousness, sequela ([facility] V24); Encounter for therapeutic drug level monitoring 04/30/2025 Lab Requisition [facility] [address] [place] [phone] Roby Roth MD Traumatic subarachnoid hemorrhage without loss of consciousness, sequela ([facility] V24) 04/25/2025 Lab Requisition [facility] [address] [place] [phone] Roby Roth MD 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 edema, unspecified eye ([facility] V24, [facility] V28) 04/23/2025 Lab Requisition [facility] [address] [place] [phone] Roby Roth MD 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 edema, unspecified eye ([facility] V24, [facility] V28) 03/23/2025 Lab Requisition [facility] [address] [place] [phone] Roby Roth MD 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; Altered mental status, unspecified 03/19/2025 Lab Requisition [facility] [address] [place] [phone] Roby Roth MD Unspecified convulsions ([facility] V24, [facility] V28); 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 edema, unspecified eye ([facility] V24, [facility] V28) 03/13/2025 Lab Requisition [facility] [address] [place] [phone] Roby Roth MD Unspecified convulsions ([facility] V24, [facility] V28) 03/05/2025 Lab Requisition [facility] [address] [place] [phone] Roby Roth MD Other halfway (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; Unspecified convulsions ([facility] V24, [facility] V28) from Last 3 Months Social History Tobacco Use Types Packs/Day Years Used Date Smoking Tobacco: Never Assessed Comments Unknown Sex and Gender Information Value Date Recorded Sex Assigned at Not on file Legal Sex Female 7:34 PM EDT Gender Identity Not on file Sexual Orientation Not on file Plan of Treatment Health Maintenance Due Date Last Done Comments Breast Cancer Screening 1969 Colorectal Cancer Screening: Colonoscopy 1969 Diabetes: Annual Foot Exam 10/29/1979 Diabetes: Annual Retina Eye Exam 10/29/1979 DTaP,Tdap,and Td Vaccines (1 - Tdap) 1988 Hepatitis B Vaccines (1 of 3 - 19+ 3-dose series) 1988 Pneumococcal Vaccine: 50+ Years (1 of 2 - PCV) 1988 Cervical Cancer Screening: Pap Smear 1990 RSV Immunization Adult Patients (1 - Risk 50-74 years 1-dose series) 10/29/2019 Zoster Vaccines (1 of 2) 10/29/2019 Diabetes: Annual Urine Albumin-Creatinine Ratio (uACR) 08/07/2024 HIV Screening 08/07/2024 Hepatitis C Screening 08/07/2024 Social Influencers of Health Screening 08/07/2024 Depression Screening 08/19/2024 COVID-19 Vaccine ( season) 2025 Influenza Vaccine (#1) 2025 06/03/2017 Diabetes: Blood Sugar Control Test (HGBA1C) 12/01/2025 06/02/2025, 03/19/2025, 12/17/2024 Diabetes: Annual GFR (Glomerular Filtration Rate) 06/02/2026 06/02/2025, 03/19/2025, 12/17/2024, Additional history exists Hypertension/CHF/CAD Annual BMP Blood Test 06/02/2026 06/02/2025, 03/19/2025, 12/17/2024, Additional history exists Cholesterol Screening (Lipid Panel) 06/02/2030 06/02/2025, 12/17/2024 HIB Vaccines Aged Out No longer eligi ble based on patient's age to complete this topic HPV Vaccines Aged Out No longer eligi ble based on patient's age to complete this topic Hepatitis A Vaccines Aged Out No long er eligible based on patient's age to complete this topic IPV Vaccines Aged Out No longer eligi ble based on patient's age to complete this topic MMR Vaccines Aged Out No longer eligi ble based on patient's age to complete this topic Meningococcal ACWY Vaccine Aged Out N o longer eligible based on patient's age to complete this topic Meningococcal B Vaccine Aged Out No l onger eligible based on patient's age to complete this topic RSV Immunization Patients Under 20 months Aged Out No longer eligible based on patient's age to complete this topic Varicella Vaccines Aged Out No longer eligible based on patient's age to complete this topic Procedures Procedure Name Priority Date/Time Associated Diagnosis Comments PHENYTOIN LEVEL, TOTAL Routine 06/02/2025 7:00 AM EDT 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 edema, unspecified eye (CMS/HCC V24, CMS/HCC V28) Hyperlipidemia, unspecified 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 HEMOGLOBIN A1C Routine 06/02/2025 7:00 AM EDT 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 edema, unspecified eye (CMS/HCC V24, CMS/HCC V28) Hyperlipidemia, unspecified Other halfway (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 LIPID PANEL WITH REFLEX TO DIRECT LDL Routine 06/02/2025 7:00 AM EDT 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 edema, unspecified eye (CMS/HCC V24, CMS/HCC V28) Hyperlipidemia, unspecified 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 COMPREHENSIVE METABOLIC PANEL Routine 06/02/2025 7:00 AM EDT 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 edema, unspecified eye (CMS/HCC V24, CMS/HCC V28) Hyperlipidemia, unspecified 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 THYROID STIMULATING HORMONE Routine 05/10/2025 6:00 AM EDT Traumatic subarachnoid hemorrhage without loss of consciousness, sequela (CMS/HCC V24) PHENYTOIN LEVEL, TOTAL Routine 05/10/2025 6:00 AM EDT Traumatic subarachnoid hemorrhage without loss of consciousness, sequela (CMS/HCC V24) THYROID STIMULATING HORMONE Routine 05/04/2025 6:40 AM EDT Other halfway (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 PHENYTOIN LEVEL, TOTAL STAT 05/02/2025 12:00 AM EDT Traumatic subarachnoid hemorrhage without loss of consciousness, sequela (CMS/HCC V24) Encounter for therapeutic drug level monitoring THYROID STIMULATING HORMONE STAT 05/02/2025 12:00 AM EDT Traumatic subarachnoid hemorrhage without loss of consciousness, sequela ([facility] V24) Encounter for therapeutic drug level monitoring THYROID STIMULATING HORMONE STAT 04/25/2025 1:15 PM EDT 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 edema, unspecified eye ([facility] V24, [facility] V28) PHENYTOIN LEVEL, TOTAL STAT 04/25/2025 1:15 PM EDT 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 edema, unspecified eye ([facility] V24, [facility] V28) CBC WITH AUTO DIFFERENTIAL Routine 03/23/2025 7:00 AM EDT 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 Altered mental status, unspecified LEVETIRACETAM LEVEL Routine 03/23/2025 7 :00 AM EDT 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 Altered mental status, unspecified HALOPERIDOL LEVEL Routine 03/23/2025 7:0 0 AM EDT 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 Altered mental status, unspecified AMMONIA Routine 03/23/2025 7:00 AM EDT 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 Altered mental status, unspecified THYROID STIMULATING HORMONE Routine 03/23/2025 7:00 AM EDT 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 Altered mental status, unspecified PHENYTOIN LEVEL, FREE Routine 03/23/2025 7:00 AM EDT Other halfway (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 Altered mental status, unspecified CBC AND DIFFERENTIAL Routine 03/23/2025 7:00 AM EDT 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 Altered mental status, unspecified CBC WITH AUTO DIFFERENTIAL Routine 03/19/2025 6:11 AM EDT Unspecified convulsions (CMS/HCC V24, CMS/HCC V28) 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 edema, unspecified eye (CMS/HCC V24, CMS/HCC V28) CBC AND DIFFERENTIAL Routine 03/19/2025 6:11 AM EDT Unspecified convulsions (CMS/HCC V24, CMS/HCC V28) 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 edema, unspecified eye (CMS/HCC V24, CMS/HCC V28) THYROID STIMULATING HORMONE Routine 03/19/2025 6:11 AM EDT Unspecified convulsions (CMS/HCC V24, CMS/HCC V28) 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 edema, unspecified eye (CMS/HCC V24, CMS/HCC V28) HEMOGLOBIN A1C Routine 03/19/2025 6:11 AM EDT Unspecified convulsions (CMS/HCC V24, CMS/HCC V28) 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 edema, unspecified eye (CMS/HCC V24, CMS/HCC V28) COMPREHENSIVE METABOLIC PANEL Routine 03/19/2025 6:11 AM EDT Unspecified convulsions (CMS/HCC V24, CMS/HCC V28) 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 edema, unspecified eye (CMS/HCC V24, CMS/HCC V28) PHENYTOIN LEVEL, TOTAL STAT 03/13/2025 10:55 AM EDT Unspecified convulsions (CMS/HCC V24, CMS/HCC V28) PHENYTOIN LEVEL, TOTAL Routine 03/05/2025 6:30 AM EDT Other halfway (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 Unspecified convulsions (CMS/HCC V24, CMS/HCC V28) SST - GOLD Routine 03/05/2025 6:30 AM EDT 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 Unspecified convulsions (CMS/HCC V24, CMS/HCC V28) SST - GOLD Routine 03/05/2025 6:30 AM EDT 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 Unspecified convulsions (CMS/HCC V24, CMS/HCC V28) from Last 3 Months Results * Lipid panel with reflex to direct LDL (06/02/2025 7:00 AM EDT) Cholesterol 191 0 - 200 mg/dL LAB CHEMISTRY METHOD 06/02/2025 8:25 AM EDT [facility] Triglycerides 50 0 - 150 mg/dL LAB CHEMISTRY METHOD 06/02/2025 8:25 AM EDT [facility] HDL 110 >=40 mg/dL LAB CHEMISTRY METHOD 06/02/2025 8:25 AM EDT [facility] LDL Calculated 71 0 - 100 mg/dL LAB CHEMISTRY METHOD 06/02/2025 8:25 AM EDT [facility] Comment:Estimated LDL Calcul ated using equation: Total cholesterol - HDL cholesterol - (Triglycerides/5) VLDL Cholesterol Oskar 10 mg/dL LAB CHEMISTRY METHOD 06/02/2025 8:25 AM EDT [facility] Non HDL Chol. (LDL+VLDL) 81 <145 mg/dL LAB CHEMISTRY METHOD 06/02/2025 8:25 AM T [facility] Chol/HDL Ratio 1.7 0.0 - 4.4 LAB CHEMISTRY METHOD 06/02/2025 8:25 AM T [facility] Blood Venous blood specimen / Unknown 06/02/2025 7:00 AM EDT 06/02/2025 7:51 AM EDT us Roby Roth MD LAB BLOOD ORDERABLES Final Resul t [facility] [address] [place] [address], * (ABNORMAL) Hemoglobin A1c (06/02/2025 7:00 AM EDT) Only the most recent of2 resultswithin the time period is included. Hemoglobin A1C 9.2(H) <6.5 % LAB CHEMISTRY METHOD 06/02/2025 2:58 PM EDT [facility] Mean Bld Glu Estim. 217 mg/dL LAB CHEMISTRY METHOD 06/02/2025 2:58 PM EDT [facility] Blood Venous blood specimen / Unknown 06/02/2025 7:00 AM EDT 06/02/2025 7:51 AM EDT us Roby Roth MD LAB BLOOD ORDERABLES Final Resul t Performing Organization Address [facility] Co de Phone Number [facility] [address] [place] [address], [place] [phone] * Phenytoin level total (06/02/2025 7:00 AM EDT) Only the most recent of6 resultswithin the time period is included. Phenytoin Level 14.7 10.0 - 20.0 mcg/mL LAB CHEMISTRY METHOD 06/02/2025 8:17 AM EDT [facility] Blood Venous blood specimen / Unknown 06/02/2025 7:00 AM EDT 06/02/2025 7:51 AM EDT us Roby Roth MD LAB BLOOD ORDERABLES Final Resul t Performing Organization Address City/[facility]/ZIP Co de Phone Number [facility] [address] [place] [address], [place] [phone] * (ABNORMAL) Comprehensive metabolic panel (06/02/2025 7:00 AM EDT) Only the most recent of2 resultswithin the time period is included. Sodium 128(L) 133 - 145 mmol/L LAB CHEMISTRY METHOD 06/02/2025 8:25 AM EDT [facility] Potassium 4.2 3.5 - 5.5 mmol/L LAB CHEMISTRY METHOD 06/02/2025 8:25 AM [facility] Chloride 90(L) 96 - 110 mmol/L LAB CHEMISTRY METHOD 06/02/2025 8:25 AM [facility] CO2 27 21 - 32 mmol/L LAB CHEMISTRY METHOD 06/02/2025 8:25 AM [facility] Anion Gap 11 3 - 11 LAB CHEMISTRY METHOD 06/02/2025 8:25 AM [facility] Glucose 192(H) 70 - 100 mg/dL LAB CHEMISTRY METHOD 06/02/2025 8:25 AM [facility] BUN 28(H) 5 - 25 mg/dL LAB CHEMISTRY METHOD 06/02/2025 8:25 AM [facility] Creatinine 1.58(H) 0.50 - 1.10 mg/dL LAB CHEMISTRY METHOD 06/02/2025 8:25 AM [facility] eGFR 39(L) >=60 mL/min/1. 73m2 LAB CHEMISTRY METHOD 06/02/2025 8:25 AM [facility] Comment:Calculation based on the Chronic Kidney Disease Epidemiology Collaboration (CKD-EPI) equation refit without adjustment for race. BUN/Creatinine Ratio 17.7 LAB CHEMISTRY METHOD 06/02/2025 8:25 AM [facility] Calcium 10.2 8.5 - 10.5 mg/dL LAB CHEMISTRY METHOD 06/02/2025 8:25 AM [facility] AST (SGOT) 24 10 - 42 unit/L LAB CHEMISTRY METHOD 06/02/2025 8:25 AM [facility] ALT (SGPT) 36 10 - 60 unit/L LAB CHEMISTRY METHOD 06/02/2025 8:25 AM [facility] Alkaline Phosphatase 201(H) 42 - 121 unit/L LAB CHEMISTRY METHOD 06/02/2025 8:25 AM EDT [facility] Total Protein 8.7(H) 6.0 - 8.0 g/dL LAB CHEMISTRY METHOD 06/02/2025 8:25 AM EDT [facility] Albumin 4.4 3.2 - 5.0 g/dL LAB CHEMISTRY METHOD 06/02/2025 8:25 AM EDT [facility] Total Bilirubin 0.2 0.0 - 1.4 mg/dL LAB CHEMISTRY METHOD 06/02/2025 8:25 AM EDT [facility] Blood Venous blood specimen / Unknown 06/02/2025 7:00 AM EDT 06/02/2025 7:51 AM EDT us Roby Roth MD LAB BLOOD ORDERABLES Final Resul t Performing Organization Address City/[facility]/ZIP Co de Phone Number [facility] [address] [place] [address], [place] [phone] * Thyroid stimulating hormone (05/10/2025 6:00 AM EDT) Only the most recent of6 resultswithin the time period is included. Pathologist [facility] TSH 0.83 0.40 - 4.00 mcIU/mL LAB CHEMISTRY METHOD 05/10/2025 9:25 AM EDT [facility] Blood Venous blood specimen / Unknown 05/10/2025 6:00 AM EDT 05/10/2025 6:50 AM EDT us Roby Roth MD LAB BLOOD ORDERABLES Final Resul t Performing Organization Address City/[facility]/ZIP Co de Phone Number [facility] [address] [place] [address], [place] [phone] * (ABNORMAL) CBC auto differential (03/23/2025 7:00 AM EDT) Only the most recent of2 resultswithin the time period is included. WBC 3.6(L) 4.8 - 10.8 K/mcL LAB HEMETOLOGY METHOD 03/23/2025 8:33 AM [facility] RBC 3.60(L) 3.80 - 4.80 M/mcL LAB HEMETOLOGY METHOD 03/23/2025 8:33 AM [facility] Hemoglobin 10.0(L) 11.5 - 16.0 g/dL LAB HEMETOLOGY METHOD 03/23/2025 8:33 AM [facility] Hematocrit 31.4(L) 35.0 - 47.0 % LAB HEMETOLOGY METHOD 03/23/2025 8:33 AM [facility] MCV 87.5 79.0 - 98.0 FL LAB HEMETOLOGY METHOD 03/23/2025 8:33 AM [facility] MCH 27.9 27.0 - 32.0 pcg LAB HEMETOLOGY METHOD 03/23/2025 8:33 AM [facility] MCHC 31.8(L) 32.0 - 37.0 g/dL LAB HEMETOLOGY METHOD 03/23/2025 8:33 AM [facility] RDW 13.2 11.0 - 15.0 % LAB HEMETOLOGY METHOD 03/23/2025 8:33 AM [facility] Platelets 236 130 - 400 K/mcL LAB HEMETOLOGY METHOD 03/23/2025 8:33 AM [facility] MPV 10.5 7.0 - 11.0 FL LAB HEMETOLOGY METHOD 03/23/2025 8:33 AM [facility] NRBC 0.0 <1.0 % LAB HEMETOLOGY METHOD 03/23/2025 8:33 AM [facility] NRBC Absolute 0.00 <0.10 K/mcL LAB HEMETOLOGY METHOD 03/23/2025 8:33 AM [facility] Neutrophils Relative 44.4 % LAB HEMETOLOGY METHOD 03/23/2025 8:33 AM [facility] Lymphocytes Relative 43.5 % LAB HEMETOLOGY METHOD 03/23/2025 8:33 AM [facility] Monocytes Relative 9.3 % LAB HEMETOLOGY METHOD 03/23/2025 8:33 AM [facility] Eosinophils Relative 2.2 % LAB HEMETOLOGY METHOD 03/23/2025 8:33 AM [facility] Basophils Relative 0.3 % LAB HEMETOLOGY METHOD 03/23/2025 8:33 AM [facility] Immature Granulocytes Relative 0.3 % LAB HEMETOLOGY METHOD 03/23/2025 8:33 AM [facility] Neutrophils Absolute 1.58 1.50 - 7.00 K/mcL LAB HEMETOLOGY METHOD 03/23/2025 8:33 AM [facility] Lymphocytes Absolute 1.55 1.00 - 5.00 K/mcL LAB HEMETOLOGY METHOD 03/23/2025 8:33 AM [facility] Monocytes Absolute 0.33 0.20 - 1.00 K/mcL LAB HEMETOLOGY METHOD 03/23/2025 8:33 AM [facility] Eosinophils Absolute 0.08 0.00 - 0.50 K/mcL LAB HEMETOLOGY METHOD 03/23/2025 8:33 AM [facility] Basophils Absolute 0.01 0.00 - 0.20 K/mcL LAB HEMETOLOGY METHOD 03/23/2025 8:33 AM [facility] Immature Granulocytes Absolute 0.01 0.00 - 0.03 K/mcL LAB HEMETOLOGY METHOD 03/23/2025 8:33 AM [facility] Blood Venous blood specimen / Unknown 03/23/2025 7:00 AM EDT 03/23/2025 7:43 AM EDT us Roby Roth MD LAB BLOOD ORDERABLES Final Resul t Performing Organization Address City/[facility]/ZIP Co de Phone Number DADA JAMESON AL ([facility]) [facility] [address] [place] [address], * (ABNORMAL) Haloperidol level (03/23/2025 7:00 AM EDT) Haloperidol 4(L) 5 - 15 ng/mL 03/31/2025 11:40 PM EDT [facility] Comment: This test was developed and its analytical performance characteristics have been determined by [facility]. It has not been cleared or approved by the FDA. This assay has been validated pursuant to the CLIA regulations and is used for clinical purposes. TEST PERFORMED AT: [facility] [address] [id number] EVAN MOSCOSO MD Blood Venous blood specimen / Unknown 03/23/2025 7:00 AM EDT 03/23/2025 7:43 AM EDT us Roby Roth MD LAB BLOOD ORDERABLES Final Resul t Performing Organization Address City/[facility] Co de Phone Number [facility] [address] [place] [address] * Levetiracetam level (03/23/2025 7:00 AM EDT) Levetiracetam 36.1 3.0 - 60.0 ug/mL 03/25/2025 5:20 AM EDT [facility] Comment: Steady state trough serum or plasma levels following doses of 1000 to 3000 mg/Day: 3 to 37 ug/mL. The same dosage regimen will typically result in peak levels of 10 to 60 ug/mL, at approximately 1.5 hours post dose. If applicable, any drug confirmation testing reported here was developed and the performance characteristics determined by [facility]. This confirmation testing has not been cleared or approved by the FDA. The laboratory is regulated under CLIA as qualified to perform high-complexity testing. This test is used for patient testing purposes. It should not be regarded as investigational or for research. Test performed at [facility], [address] , [place] [address] Fatemeh Godfrey MD, PhD - Ict Business Development Manager Blood Venous blood specimen / Unknown 03/23/2025 7:00 AM EDT 03/23/2025 7:43 AM EDT us Roby Rtoh MD LAB BLOOD ORDERABLES Final Resul t Performing Organization Address City/[facility]/ZIP Co de Phone Number [facility] [address] [place] [address] * Ammonia (03/23/2025 7:00 AM EDT) Ammonia 23 11 - 35 mcmol/L LAB CHEMISTRY METHOD 03/23/2025 8:41 AM EDT [facility] Blood Venous blood specimen / Unknown 03/23/2025 7:00 AM EDT 03/23/2025 7:43 AM EDT us Roby Roth MD LAB BLOOD ORDERABLES Final Resul t Performing Organization Address City/[facility] Co de Phone Number [facility] [address] [place] [address], [place] [phone] * (ABNORMAL) Phenytoin level free (03/23/2025 7:00 AM EDT) Phenytoin, Free (Dilantin) <0.8(L) 0.8 - 2.0 ug/mL 03/25/2025 1:[address] [facility] Comment: Phenytoin free toxic level: >3.0 ug/mL If applicable, any drug confirmation testing reported here was developed and the performance characteristics determined by [facility]. This confirmation testing has not been cleared or approved by the FDA. The laboratory is regulated under CLIA as qualified to perform high-complexity testing. This test is used for patient testing purposes. It should not be regarded as investigational or for research. Test performed at [facility], [address], [place] [address] Fatemeh Godfrey MD, PhD - Ict Business Development Manager Blood Venous blood specimen / Unknown 03/23/2025 7:00 AM EDT 03/23/2025 7:43 AM EDT us Roby Roth MD LAB BLOOD ORDERABLES Final Resul t [facility] [address] [place] [address] * SST tube (03/05/2025 6:30 AM EDT) Only the most recent of2 resultswithin the time period is included. Extra Tube Hold for add-ons. 03/05/2025 9:01 AM EDT [facility] Comment:Auto resulted. Blood Venous blood specimen / Unknown 03/05/2025 6:30 AM EDT 03/05/2025 7:37 AM EDT us Roby Roth MD LAB BLOOD ORDERABLES Final Resul t Performing Organization Address City/[facility]/ZIP Co de Phone Number [facility] [address] [place] [address], [place] [phone] from Last 3 Months Insurance [place]ICA[place] - [place] Care Teams Agriculture Professor Relationship Specialty Start Date End Date Roby Roth MD [address] [place] [address] [address] JOSÉ Guerrero PCP - General Internal Medicine 09/11/24
--- OUTSIDE RECORDS SUMMARY | 2025-06-03 16:20 | XMS_ITS | Clinical Summary ---
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); Mild nonproliferative diabetic retinopathy of both eyes without macular edema associated with type 2 diabetes mellitus ([facility]) 05/04/2025 Travel from Last 3 Months Social History Tobacco Use Types Packs/Day Years Used Date Smoking Tobacco: Never Assessed Comments Unknown Sex and Gender Information Value Date Recorded Sex Assigned at Not on file Legal Sex Female 3:43 AM EST Gender Identity Not on file Sexual Orientation Not on file Plan of Treatment Upcoming Encounters Date Type Department Care Team (Late st Contact Info) Description 08/31/2025 1:00 PM EST Office Visit [facility] [address] [facility] [place] [id number] Jelani Martinez MD [address] [facility] [address] [place] [address] Health Maintenance Due Date Last Done Comments CT Colonography 1969 Cologuard 1969 Colonoscopy 1969 Colorectal Cancer Screening 1969 FIT 1969 FOBT 1969 Lipid Panel 1969 Sigmoidoscopy 1969 TD Vaccine (21+ Years) 1969 MMR Vaccines (1 of 1 - Standard series) 1970 Diabetes: Foot Exam 10/29/1979 Hepatitis C Screening 10/29/1987 Hepatitis B Vaccines (1 of 3 - 19+ 3-dose series) 1988 Pneumococcal Vaccine: 50+ Years (1 of 2 - PCV) 1988 Pap Smear 1990 Cervical Cancer Screening 10/29/1999 HPV/Cotest 10/29/1999 Mammogram 2009 Zoster Vaccines (1 of 2) 10/29/2019 Influenza Vaccine (#1) 2025 Diabetes: Hemoglobin A1C 06/19/2025 03/19/2025 Diabetes: Retinopathy Screening 05/04/2026 05/04/2025, 05/04/2025 HIB Vaccines Aged Out No longer eligi [...] patient's age to complete this topic Meningococcal Vaccine Aged Out No eddie darrius eligible based on patient's age to complete this topic Rotavirus Vaccines Aged Out No longer eligible based on patient's age to complete this topic Insurance MEDICAID OUT OF STATE
--- OUTSIDE RECORDS SUMMARY | 2025-06-03 16:20 | XMS_ITS | Encounter Summary ---
Author Organization [facility] Address [address] [place] [address] Care Team Providers Care Pension Fund Manager Name Role Phone Roby Roth MD Primary Care Provider [phone] Encounter Details Date Type Department Care Team (Latest Contact Info) Description 07/06/2024 Lab Requisition [facility] - Main Lab [address] [place] [address] Roby Roth MD [address] [place] [address] [address] [place], [place] 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 edema, unspecified eye (CMS/HCC V24, CMS/HCC V28) Social History Tobacco [...] Associated Diagnosis Comments PHENYTOIN LEVEL, TOTAL Routine 07/06/2024 5:45 AM EST 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 edema, unspecified eye (CMS/[facility]) documented in this encounter Results * Phenytoin level total (07/06/2024 5:45 AM EST) Phenytoin Level 10.1 10.0 - 20.0 mcg/mL LAB CHEMISTRY METHOD 07/06/2024 7:54 AM EST [facility] ([facility]) [facility] Blood Venous blood specimen / Unknown 07/06/2024 5:45 AM EST 07/06/2024 7:19 AM EST Roby Roth MD LAB BLOOD ORDERABLES Final Resul t [facility] ([facility]) [facility] [address] [place] [address], documented in this encounter Visit Diagnoses Diagnosis 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 edema, unspecified eye (CMS/[facility] V24, CMS/[facility] V28) documented in this encounter Care Teams Pension Fund Manager Relationship Specialty Start Date End Date Roby Roth MD [address] [place] [address] Dr [address] [place], [place] PCP - General Internal Medicine 09/11/24 documented as of this encounter
--- OUTSIDE RECORDS SUMMARY | 2025-06-03 16:20 | XMS_ITS | Encounter Summary ---
Author Organization [facility] Address [address] [place] [address] Care Team Providers Care Hatch Supervisor Name Role Phone Roby Roth MD Primary Care Provider [phone] Encounter Details Date Type Department Care Team (Late st Contact Info) Description 05/10/2025 Lab Requisition [facility] - Main Lab [address] [facility] [place] [address] Roby Roth MD [address] [place] [address] Dr [address] [place], [place] Traumatic subarachnoid hemorrhage without loss of consciousness, [...] Procedure Name Priority Date/Time Associated Diagnosis Comments THYROID STIMULATING HORMONE Routine 05/10/2025 6:00 AM EDT Traumatic subarachnoid hemorrhage without loss of consciousness, sequela (CMS/HCC V24) PHENYTOIN LEVEL, TOTAL Routine 05/10/2025 6:00 AM EDT Traumatic subarachnoid hemorrhage without loss of consciousness, sequela (CMS/HCC V24) documented in this encounter Results * Thyroid stimulating hormone (05/10/2025 6:00 AM EDT) TSH 0.83 0.40 - 4.00 mcIU/mL LAB CHEMISTRY METHOD 05/10/2025 9:25 AM EDT [facility] ([facility]) [facility] Blood Venous blood specimen / Unknown 05/10/2025 6:00 AM EDT 05/10/2025 6:50 AM EDT us Roby Roth MD LAB BLOOD ORDERABLES Final Resul t Performing Organization Address City/[facility]/ZIP Co de Phone Number [facility] [address] [place] [address], [place] [phone] * Phenytoin level total (05/10/2025 6:00 AM EDT) Phenytoin Level 17.1 10.0 - 20.0 mcg/mL LAB CHEMISTRY METHOD 05/10/2025 7:46 AM EDT [facility] Blood Venous blood specimen / Unknown 05/10/2025 6:00 AM EDT 05/10/2025 6:50 AM EDT us Roby Roth MD LAB BLOOD ORDERABLES Final Resul t Performing Organization Address [facility]/ZIP Co de Phone Number [facility] [address] [place] [address], [place] [phone] documented in this encounter Visit Diagnoses Diagnosis Traumatic subarachnoid hemorrhage without loss of consciousness, sequela (CMS/HCC V24) documented in this encounter Care Teams Hatch Supervisor Relationship Specialty Start Date End Date Roby Roth MD [address] [place] [address] [place] [address] PCP - General Internal Medicine 09/11/24 documented as of this encounter
--- OUTSIDE RECORDS SUMMARY | 2025-06-03 16:20 | XMS_ITS | Clinical Summary ---
Author Organization [facility] Address [address] [facility] [address] [place] [address] Phone Care Team Providers Care Hand Assembler For Puller Over Name Role Phone Roby Roth DO Primary Care Provider [phone] Allergies No known active allergies Medications docusate sodium (COLACE) 100 MG capsule Take 100 mg by mouth 2 (two) times a day. Active ferrous sulfate 325 mg (65 mg [place] iron) tablet Take 325 mg by mouth daily with breakfast. Active gabapentin (NEURONTIN) 600 MG tablet Take 600 mg by mouth 3 (three) times a day. Active glucagon, human recombinant, (GLUCAGEN HYPOKIT) 1 mg injection Active haloperidol (HALDOL) 10 MG tablet Take 10 mg by mouth 4 (four) times a day. Active haloperidol (HALDOL) 5 MG tablet Take 5 mg by mouth 4 (four) times a day. Active ibuprofen (ADVIL,MOTRIN) 200 MG tablet Take 200 mg by mouth every 6 (six) hours as needed for pain (specific location in comments). Active insulin glargine (LANTUS) 100 unit/mL injection vial Inject under the skin nightly at bedtime. Active Active Problems Problem Noted Date Diagnosed Date Unspecified dementia with behavioral disturbance Unspecified dementia with behavioral disturbance Unspecified dementia with behavioral disturbance Family History Medical History Relation Comments Diabetes Father No Known Problems Mother Relation Status Comments Father Mother Social History Tobacco Use Types Packs/Day Years Used Date Smoking Tobacco: Never Smokeless Tobacco: Never Alcohol Use Standard Drinks/Week Comments Not Currently 0 (1 standard drink = 0.6 oz pur e alcohol) Education Answer Date Recorded Are you interested in more education? Not on manju e 12/14/2022 Are you concerned about learning? Not on file 12/14/2022 No 12/14/2022 No 12/14/2022 Digital Access Answer Date Recorded No 01/12/2023 No 01/12/2023 No 01/12/2023 Reliable internet access at home? Not on file 01/12/2023 Device with a working camera? Not on file Comments No Sex and Gender Information Value Date Recorded Sex Assigned at Not on file Legal Sex Female 1:39 PM EST Gender Identity Not on file Sexual Orientation Not on file Last Filed Vital Signs Vital Sign Reading Time Taken Comments Blood Pressure 124/78 2018 8:52 AM EDT Pulse - - Temperature - - Respiratory Rate - - Oxygen Saturation - - Inhaled Oxygen Concentration - - Weight 104.3 kg (230 lb) 2018 8:52 AM EDT Height - - Body Mass Index - - Plan of Treatment Health Maintenance Due Date Last Done Comments Adult Td,Tdap Booster 1969 LIPID PANEL 1969 DEPRESSION SCREENING 1981 HEPATITIS C SCREENING 10/29/1987 HIV ONE-TIME SCREENING (18-6 5 YEARS) 10/29/1987 PAP SMEAR 1990 MAMMOGRAM 2009 COLOGUARD 2014 COLONOSCOPY 2014 COLORECTAL CANCER SCREENING 2014 FIT TEST 2014 FOBT 2014 SIGMOIDOSCOPY 2014 VIRTUAL COLONOSCOPY 2014 PNEUMOCOCCAL VACCINES (50+ years) (1 of 1 - PCV) 10/29/2019 ZOSTER VACCINES (1 of 2) 10/29/2019 INFLUENZA VACCINE (#1) 2025 COVID-19 VACCINE (3 - 2024-2 6 season) 2025 09/14/2020, 08/24/2020 RSV VACCINE (1 - 1-dose 75+ series) 2044 SMOKING STATUS SCREENING (On ce After 26 Yrs) Completed 2018 HEPATITIS A VACCINES Aged Out No long er eligible based on patient's age to complete this topic HIB VACCINES Aged Out No longer eligi ble based on patient's age to complete this topic MENINGOCOCCAL VACCINES (ACWY) Aged Out No longer eligible based on patient's age to complete this topic MENINGOCOCCAL VACCINES (B) Aged Out N o longer eligible based on patient's age to complete this topic Medical Devices Not on file Insurance [place] Advance Directives For more information, please contact: [phone] (9AM - 5PM [facility], Saturday-Saturday) Healthcare Agents on File Name Relationship Healthcare Agent Relationshi p Communication Guadalupe Peralta Other Other (no proxy form on f ile) Care Teams Hand Assembler For Puller Over Relationship Specialty Start Date End Date Roby Roth DO [address] [place] [address] PCP - General Internal Medicine 10/28/18 Additional Source Comments The information contained in this document represents components of the legal health record. It is not the complete legal health record.[facility]
--- OUTSIDE RECORDS SUMMARY | 2025-06-03 16:20 | XMS_ITS | Encounter Summary ---
Author Organization [facility] Address [address] [place] [address] Care Team Providers Care Digital Business Analyst Name Role Phone Roby Roth MD Primary Care Provider [phone] Encounter Details Date Type Department Care Team (Late st Contact Info) Description 02/24/2025 Lab Requisition [facility] - Main Lab [address] [place] [address] Roby Roth MD [address] [place] [address] Dr [address] [place], [place] Unspecified convulsions (CMS/HCC V24, CMS/HCC V28) [...] Associated Diagnosis Comments PHENYTOIN LEVEL, TOTAL Routine 02/24/2025 5:50 AM EDT Unspecified convulsions (CMS/HCC V24, CMS/HCC V28) documented in this encounter Results * (ABNORMAL) Phenytoin level total (02/24/2025 5:50 AM EDT) Phenytoin Level 5.8(L) 10.0 - 20.0 mcg/mL LAB CHEMISTRY METHOD 02/24/2025 8:10 AM EDT [facility] ([facility]) [facility] Blood Venous blood specimen / Unknown 02/24/2025 5:50 AM EDT 02/24/2025 6:49 AM EDT us Roby Roth MD LAB BLOOD ORDERABLES Final Resul t [facility] ([facility] [address] [place] [address], documented in this encounter Visit Diagnoses Diagnosis Unspecified convulsions (CMS/HCC V24, CMS/HCC V28) documented in this encounter Care Teams Digital Business Analyst Relationship Specialty Start Date End Date Roby Roth MD [address] [place] [address] Dr [address] [place], [place] PCP - General Internal Medicine 09/11/24 documented as of this encounter
--- OUTSIDE RECORDS SUMMARY | 2025-06-03 16:20 | XMS_ITS | Encounter Summary ---
Author Organization [facility] Address [address] [place] [address] Care Team Providers Care Newsagent Name Role Phone Roby Roth MD Primary Care Provider Encounter Details Date Type Department Care Team (Late st Contact Info) Description 01/12/2025 Lab Requisition [facility] - Main Lab [address] [place] [address] Roby Roth MD [address] [place] [address] [address] [place], [place] Other seizures (CMS/HCC V24, CMS/HCC V28); Hypothyroidism, unspecified Social History Tobacco Use Types [...] Associated Diagnosis Comments THYROID STIMULATING HORMONE Routine 01/12/2025 12:00 AM EDT Other seizures (CMS/HCC V24, CMS/HCC V28) Hypothyroidism, unspecified PHENYTOIN LEVEL, TOTAL Routine 01/12/2025 12:00 AM EDT Other seizures (CMS/HCC V24, CMS/HCC V28) documented in this encounter Results * Thyroid stimulating hormone (01/12/2025 12:00 AM EDT) TSH 0.48 0.40 - 4.00 mcIU/mL LAB CHEMISTRY METHOD 01/14/2025 8:21 PM EDT [facility] ([facility]) [facility] Blood Venous blood specimen / Unknown 01/12/2025 01/12/2025 9:23 AM EDT us Roby Roth MD LAB BLOOD ORDERABLES Final Resul t Performing Organization Address City/[facility]/ZIP Co de Phone Number [facility] [address] [place] [address], [place] [phone] * (ABNORMAL) Phenytoin level total (01/12/2025 12:00 AM EDT) Phenytoin Level 28.0(HH) 10.0 - 20.0 mcg/mL LAB CHEMISTRY METHOD 01/12/2025 10:14 AM EDT [facility] Blood Venous blood specimen / Unknown 01/12/2025 01/12/2025 9:23 AM EDT us Roby Roth MD LAB BLOOD ORDERABLES Final Resul t Performing Organization Address [facility]/ZIP Co de Phone Number [facility] [address] [place] [address], [place] [phone] documented in this encounter Visit Diagnoses Diagnosis Other seizures (CMS/HCC V24, CMS/HCC V28) Hypothyroidism, unspecified documented in this encounter Care Teams Newsagent Relationship Specialty Start Date End Date Roby Roth MD [address] [facility] [address] [address] PCP - General Internal Medicine 09/11/24 documented as of this encounter
--- OUTSIDE RECORDS SUMMARY | 2025-06-03 16:20 | XMS_ITS | Encounter Summary ---
Author Organization [facility] Address [address] [place] [address] Care Team Providers Care Tableau Developer Name Role Phone Roby Roth MD Primary Care Provider [phone] Encounter Details Date Type Department Care Team (Late st Contact Info) Description 12/24/2024 Lab Requisition [facility] - Main Lab [address] [place] [address] Roby Roth MD [address] [place] [address] [address] [place], [place] Hypothyroidism, unspecified Social History Tobacco Use [...] Associated Diagnosis Comments THYROID STIMULATING HORMONE Routine 12/24/2024 6:55 AM EDT Hypothyroidism, unspecified documented in this encounter Results * (ABNORMAL) Thyroid stimulating hormone (12/24/2024 6:55 AM EDT) TSH 56.62(H) 0.40 - 4.00 mcIU/mL LAB CHEMISTRY METHOD 12/24/2024 10:24 AM EDT [facility] Blood Venous blood specimen / Unknown 12/24/2024 6:55 AM EDT 12/24/2024 7:29 AM EDT us Roby Roth MD LAB BLOOD ORDERABLES Final Resul t [facility] [address] [place] [address], documented in this encounter Visit Diagnoses Diagnosis Hypothyroidism, unspecified documented in this encounter Care Teams Tableau Developer Relationship Specialty Start Date End Date Roby Roth MD [address] [place] [address] [address] [place], [place] PCP - General Internal Medicine 09/11/24 documented as of this encounter
--- OUTSIDE RECORDS SUMMARY | 2025-06-03 16:20 | XMS_ITS | Encounter Summary ---
Author Organization [facility] Address [address] [place] [address] Care Team Providers Care Tube Balancer Name Role Phone Roby Roth MD Primary Care Provider [phone] Encounter Details Date Type Department Care Team (Late st Contact Info) Description 05/04/2025 Lab Requisition [facility] - Main Lab [address] [place] [address] Roby Roth MD [address] [place] [address] Dr [address] [place], [place] Other terminal carman (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 Social History Tobacco Use Types Packs/Day Years [...] Associated Diagnosis Comments THYROID STIMULATING HORMONE Routine 05/04/2025 6:40 AM EDT Other residential (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 documented in this encounter Results * Thyroid stimulating hormone (05/04/2025 6:40 AM EDT) TSH 0.40 0.40 - 4.00 mcIU/mL LAB CHEMISTRY METHOD 05/04/2025 9:43 AM EDT [facility] Blood Venous blood specimen / Unknown 05/04/2025 6:40 AM EDT 05/04/2025 7:27 AM EDT us Roby Roth MD LAB BLOOD ORDERABLES Final Resul t [facility] [address] [place] [address], documented in this encounter Visit Diagnoses Diagnosis Other residential (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 documented in this encounter Care Teams Tube Balancer Relationship Specialty Start Date End Date Roby Roth MD [address] [place] [address] Dr [address] [place]OSÉ Guerrero PCP - General Internal Medicine 09/11/24 documented as of this encounter
--- OUTSIDE RECORDS SUMMARY | 2025-06-03 16:20 | XMS_ITS | Encounter Summary ---
Author Organization [facility] Address [address] [place] [address] Care Team Providers Care Branch Account Executive Name Role Phone Roby Roth MD Primary Care Provider [phone] Encounter Details Date Type Department Care Team (Latest Contact Info) Description 06/02/2025 Lab Requisition [facility] - Main Lab 299 [facility] [place] [address] Roby Roth MD [address] [place] [address] Dr [address] [place], [place] 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 edema, unspecified eye (CMS/HCC V24, CMS/HCC V28); Hyperlipidemia, unspecified; Other fci (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 Social History Tobacco Use [...] Procedure Name Priority Date/Time Associated Diagnosis Comments LIPID PANEL WITH REFLEX TO DIRECT LDL Routine 06/02/2025 7:00 AM EDT 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 edema, unspecified eye (CMS/HCC V24, CMS/HCC V28) Hyperlipidemia, unspecified Other roasterman (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 HEMOGLOBIN A1C Routine 06/02/2025 7:00 AM EDT 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 edema, unspecified eye (CMS/HCC V24, CMS/HCC V28) Hyperlipidemia, unspecified Other fci (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 PHENYTOIN LEVEL, TOTAL Routine 06/02/2025 7:00 AM EDT 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 edema, unspecified eye ([facility] V24, [facility] V28) Hyperlipidemia, unspecified Other fci (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 COMPREHENSIVE METABOLIC PANEL Routine 06/02/2025 7:00 AM EDT 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 edema, unspecified eye ([facility] V24, [facility] V28) Hyperlipidemia, unspecified Other roasterman (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 documented in this encounter Results * Phenytoin level total (06/02/2025 7:00 AM EDT) Phenytoin Level 14.7 10.0 - 20.0 mcg/mL LAB CHEMISTRY METHOD 06/02/2025 8:17 AM EDT [facility] Blood Venous blood specimen / Unknown 06/02/2025 7:00 AM EDT 06/02/2025 7:51 AM EDT us Roby Roth MD LAB BLOOD ORDERABLES Final Resul t Performing Organization Address City/[facility]/ZIP Co de Phone Number [facility] [address] [place] [address], [place] [phone] * (ABNORMAL) Hemoglobin A1c (06/02/2025 7:00 AM EDT) Hemoglobin A1C 9.2(H) <6.5 % LAB CHEMISTRY METHOD 06/02/2025 2:58 PM EDT [facility] Mean Bld Glu Estim. 217 mg/dL LAB CHEMISTRY METHOD 06/02/2025 2:58 PM EDT [facility] Blood Venous blood specimen / Unknown 06/02/2025 7:00 AM EDT 06/02/2025 7:51 AM EDT us Roby Roth MD LAB BLOOD ORDERABLES Final Resul t [facility] [address] [place] [address], [place] [phone] * Lipid panel with reflex to direct LDL (06/02/2025 7:00 AM EDT) Cholesterol 191 0 - 200 mg/dL LAB CHEMISTRY METHOD 06/02/2025 8:25 AM EDT [facility] Triglycerides 50 0 - 150 mg/dL LAB CHEMISTRY METHOD 06/02/2025 8:25 AM EDT [facility] HDL 110 >=40 mg/dL LAB CHEMISTRY METHOD 06/02/2025 8:25 AM EDT [facility] LDL Calculated 71 0 - 100 mg/dL LAB CHEMISTRY METHOD 06/02/2025 8:25 AM EDT [facility] Comment:Estimated LDL Calcul ated using equation: Total cholesterol - HDL cholesterol - (Triglycerides/5) VLDL Cholesterol Oskar 10 mg/dL LAB CHEMISTRY METHOD 06/02/2025 8:25 AM EDT [facility] Non HDL Chol. (LDL+VLDL) 81 <145 mg/dL LAB CHEMISTRY METHOD 06/02/2025 8:25 AM EDT [facility] Chol/HDL Ratio 1.7 0.0 - 4.4 LAB CHEMISTRY METHOD 06/02/2025 8:25 AM T [facility] Blood Venous blood specimen / Unknown 06/02/2025 7:00 AM EDT 06/02/2025 7:51 AM EDT us Roby Roht MD LAB BLOOD ORDERABLES Final Resul t [facility] [address] [place] [address], [place] [phone] * (ABNORMAL) Comprehensive metabolic panel (06/02/2025 7:00 AM EDT) Sodium 128(L) 133 - 145 mmol/L LAB CHEMISTRY METHOD 06/02/2025 8:[address] [facility] Potassium 4.2 3.5 - 5.5 mmol/L LAB CHEMISTRY METHOD 06/02/2025 8:[address] [facility] Chloride 90(L) 96 - 110 mmol/L LAB CHEMISTRY METHOD 06/02/2025 8:[address] [facility] CO2 27 21 - 32 mmol/L LAB CHEMISTRY METHOD 06/02/2025 8:[address] [facility] Anion Gap 11 3 - 11 LAB CHEMISTRY METHOD 06/02/2025 8:[address] [facility] Glucose 192(H) 70 - 100 mg/dL LAB CHEMISTRY METHOD 06/02/2025 8:[address] [facility] BUN 28(H) 5 - 25 mg/dL LAB CHEMISTRY METHOD 06/02/2025 8:[address] [facility] Creatinine 1.58(H) 0.50 - 1.10 mg/dL LAB CHEMISTRY METHOD 06/02/2025 8:[address] [facility] eGFR 39(L) >=60 mL/min/1. 73m2 LAB CHEMISTRY METHOD 06/02/2025 8:[address] [facility] Comment:Calculation based on the Chronic Kidney Disease Epidemiology Collaboration (CKD-EPI) equation refit without adjustment for race. BUN/Creatinine Ratio 17.7 LAB CHEMISTRY METHOD 06/02/2025 8:[address] [facility] Calcium 10.2 8.5 - 10.5 mg/dL LAB CHEMISTRY METHOD 06/02/2025 8:[address] [facility] AST (SGOT) 24 10 - 42 unit/L LAB CHEMISTRY METHOD 06/02/2025 8:[address] [facility] ALT (SGPT) 36 10 - 60 unit/L LAB CHEMISTRY METHOD 06/02/2025 8:[address] [facility] Alkaline Phosphatase 201(H) 42 - 121 unit/L LAB CHEMISTRY METHOD 06/02/2025 8:25 AM EDT [facility] Total Protein 8.7(H) 6.0 - 8.0 g/dL LAB CHEMISTRY METHOD 06/02/2025 8:25 AM EDT [facility] Albumin 4.4 3.2 - 5.0 g/dL LAB CHEMISTRY METHOD 06/02/2025 8:25 AM EDT [facility] Total Bilirubin 0.2 0.0 - 1.4 mg/dL LAB CHEMISTRY METHOD 06/02/2025 8:25 AM EDT [facility] Blood Venous blood specimen / Unknown 06/02/2025 7:00 AM EDT 06/02/2025 7:51 AM EDT us Roby Roth MD LAB BLOOD ORDERABLES Final Resul t [facility] [address] [place] [address], [place] [phone] documented in this encounter Visit Diagnoses Diagnosis 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 edema, unspecified eye (CMS/HCC V24, CMS/HCC V28) Hyperlipidemia, unspecified Other roasterman (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 documented in this encounter Care Teams Branch Account Executive Relationship Specialty Start Date End Date Roby Roth MD [address] [place], [place] PCP - General Internal Medicine 09/11/24 documented as of this encounter
--- OUTSIDE RECORDS SUMMARY | 2025-06-03 16:20 | XMS_ITS | Encounter Summary ---
Author Organization [facility] Address [address] [place] [address] Care Team Providers Care Aviation Maintenance Instructor Name Role Phone Roby Roth MD Primary Care Provider [phone] Encounter Details Date Type Department Care Team (Late st Contact Info) Description 01/05/2025 Lab Requisition [facility] - Main Lab 299 [facility] [place] [address] Roby Roth MD [address] [place] [address] Dr [address] [place], [place] Epilepsy, unspecified, not intractable, with status epilepticus (CMS/HCC V24, CMS/HCC V28); Conversion disorder with seizures or convulsions Social History Tobacco Use Types Packs/Day Years [...] Associated Diagnosis Comments PHENYTOIN LEVEL, TOTAL Routine 01/05/2025 7:05 AM EDT Epilepsy, unspecified, not intractable, with status epilepticus (CMS/HCC V24, CMS/HCC V28) Conversion disorder with seizures or convulsions documented in this encounter Results * (ABNORMAL) Phenytoin level total (01/05/2025 7:05 AM EDT) Phenytoin Level 33.4(HH) 10.0 - 20.0 mcg/mL LAB CHEMISTRY METHOD 01/05/2025 9:18 AM EDT [facility] ([facility]) [facility] Blood Venous blood specimen / Unknown 01/05/2025 7:05 AM EDT 01/05/2025 7:32 AM EDT us Roby Roth MD LAB BLOOD ORDERABLES Final Resul t [facility] ([facility]) [facility] [address] [place] [address], documented in this encounter Visit Diagnoses Diagnosis Epilepsy, unspecified, not intractable, with status epilepticus (CMS/HCC V24, CMS/HCC V28) Conversion disorder with seizures or convulsions documented in this encounter Care Teams Aviation Maintenance Instructor Relationship Specialty Start Date End Date Roby Roth MD [address] [place] [address] [address] [place], [place] PCP - General Internal Medicine 09/11/24 documented as of this encounter
--- OUTSIDE RECORDS SUMMARY | 2025-06-03 16:20 | XMS_ITS | Encounter Summary ---
Author Organization [facility] Address [address] [place] [address] Care Team Providers Care Motion Picture Projectionist Name Role Phone Roby Roth MD Primary Care Provider [phone] Encounter Details Date Type Department Care Team (Latest Contact Info) Description 03/19/[address] [facility] - Main Lab 299 [facility] [place] [address] Roby Roth MD [address] [place] [address] [address] [place], [place] Unspecified convulsions (CMS/HCC V24, CMS/HCC V28); Type 2 diabetes mellitus with mild [...] Diagnosis Comments CBC WITH AUTO DIFFERENTIAL Routine 03/19/2025 6:11 [...] Routine 03/19/2025 6:11 AM EDT Unspecified convulsions ([facility] V24, [facility] V28) 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 edema, unspecified eye ([facility] V24, [facility] V28) HEMOGLOBIN A1C Routine 03/19/2025 6:11 AM EDT Unspecified convulsions ([facility] V24, [facility] V28) 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 edema, unspecified eye ([facility]/HCC V24, [facility] V28) COMPREHENSIVE METABOLIC PANEL Routine 03/19/2025 6:11 AM EDT Unspecified convulsions ([facility] V24, [facility] V28) 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 edema, unspecified eye ([facility] V24, [facility] V28) documented in this encounter Results * (ABNORMAL) CBC auto differential (03/19/2025 6:11 AM EDT) [facility] WBC 6.2 4.8 - 10.8 K/mcL LAB HEMETOLOGY [facility] RBC 3.90 3.80 - 4.80 M/mcL LAB HEMETOLOGY METHOD 03/19/2025 11:46 PM [facility] Hemoglobin 11.0(L) 11.5 - 16.0 g/dL LAB HEMETOLOGY METHOD 03/19/2025 11:46 PM T [facility] Hematocrit 36.7 35.0 - 47.0 % LAB HEMETOLOGY METHOD 03/19/2025 11:46 PM [facility] MCV 93.4 79.0 - 98.0 FL LAB HEMETOLOGY METHOD 03/19/2025 11:46 PM [facility] MCH 28.0 27.0 - 32.0 pcg LAB HEMETOLOGY METHOD 03/19/2025 11:46 PM EDT [facility] MCHC 30.0(L) 32.0 - 37.0 g/dL LAB HEMETOLOGY METHOD 03/[facility]25 [facility] RDW 14.3 11.0 - 15.0 % LAB HEMETOLOGY METHOD 03/19/2025 11:46 PM [facility] Platelets 249 130 - 400 K/mcL LAB HEMETOLOGY METHOD 03/19[facility]2025 11[facility] MPV 11.0 7.0 - 11.0 FL LAB HEMETOLOGY METHOD 03/19/2025 11:46 PM [facility] NRBC 0.0 <1.0 % LAB HEMETOLOGY METHOD 03/19/2025 11:46 PM [facility] NRBC Absolute 0.00 <0.10 K/mcL LAB HEMETOLOGY METHOD 03/19/2025 11:46 PM [facility] Neutrophils Relative 76.5 % LAB HEMETOLOGY METHOD 03/19/2025 11:46 PM [facility] Lymphocytes Relative 16.1 % LAB HEMETOLOGY METHOD 03/19/2025 11:46 PM [facility] Monocytes Relative 6.9 % LAB HEMETOLOGY METHOD 03/19/2025 11:46 PM [facility] Eosinophils Relative 0.0 % LAB HEMETOLOGY METHOD 03/19/2025 11:46 PM [facility] Basophils Relative 0.3 % LAB HEMETOLOGY METHOD 03/19/2025 11:46 PM [facility] Immature Granulocytes Relative 0.2 % LAB HEMETOLOGY METHOD 03/19/2025 11:46 PM [facility] Neutrophils Absolute 4.77 1.50 - 7.00 K/mcL LAB HEMETOLOGY METHOD 03/19/2025 11:46 PM EDT [facility] Lymphocytes Absolute 1.00 1.00 - 5.00 K/mcL LAB HEMETOLOGY METHOD 03/19/2025 11:46 PM EDT [facility] Monocytes Absolute 0.43 0.20 - 1.00 K/mcL LAB HEMETOLOGY METHOD 03/19/2025 11:46 PM EDT [facility] Eosinophils Absolute 0.00 0.00 - 0.50 K/[facility] LAB HEMETOLOGY METHOD 03/19/2025 11:46 PM EDT [facility] Basophils Absolute 0.02 0.00 - 0.20 K/[facility] LAB HEMETOLOGY METHOD 03/19/2025 11:46 PM EDT [facility] Immature Granulocytes Absolute 0.01 0.00 - 0.03 K/[facility] LAB HEMETOLOGY METHOD 03/19/2025 11:46 PM EDT [facility] Blood Venous blood specimen / Unknown 03/19/2025 6:11 AM EDT 03/19/2025 6:36 AM EDT us Roby Roth MD LAB BLOOD ORDERABLES Final Resul t Performing Organization Address City/[facility]/ZIP Co de Phone Number [facility] [address] [place] [address], [place] [phone] * (ABNORMAL) Thyroid stimulating hormone (03/19/2025 6:11 AM EDT) TSH 0.11(L) 0.40 - 4.00 mcIU/mL LAB CHEMISTRY METHOD 03/20/2025 12:01 AM EDT [facility] Blood Venous blood specimen / Unknown 03/19/2025 6:11 AM EDT 03/19/2025 6:36 AM EDT us Roby Roth MD LAB BLOOD ORDERABLES Final Resul t [facility] [address] [place] [address], [place] [phone] * (ABNORMAL) Hemoglobin A1c (03/19/2025 6:11 AM EDT) [facility] Hemoglobin A1C 9.4(H) <6.5 % LAB CHEMISTRY METHOD 03/19/2025 1:44 PM EDT [facility] Mean Bld Glu Estim. 223 mg/dL LAB CHEMISTRY METHOD 03/19/2025 1:44 PM EDT [facility] Blood Venous blood specimen / Unknown 03/19/2025 6:11 AM EDT 03/19/2025 6:36 AM EDT Roby Roth MD LAB BLOOD ORDERABLES Final Resul t [facility] [address] [place] [address], * (ABNORMAL) Comprehensive metabolic panel (03/19/2025 6:11 AM EDT) [facility] Sodium 138 133 - 145 mmol/L LAB CHEMISTRY METHOD 03/19/2025 7:27 AM [facility] Potassium 4.8 3.5 - 5.5 mmol/L LAB CHEMISTRY METHOD 03/19/2025 7:27 AM [facility] Chloride 102 96 - 110 mmol/L LAB CHEMISTRY METHOD 03/19/2025 7:27 AM [facility] CO2 24 21 - 32 mmol/L LAB CHEMISTRY METHOD 03/19/2025 7:27 AM [facility] Anion Gap 12(H) 3 - 11 LAB CHEMISTRY METHOD 03/19/2025 7:27 AM [facility] Glucose 271(H) 70 - 100 mg/dL LAB CHEMISTRY METHOD 03/19/2025 7:27 AM [facility] BUN 26(H) 5 - 25 mg/dL LAB CHEMISTRY METHOD 03/19/2025 7:27 AM [facility] Creatinine 1.31(H) 0.50 - 1.10 mg/dL LAB CHEMISTRY METHOD 03/19/2025 7:27 AM [facility] eGFR 48(L) >=60 mL/min/1. 73m2 LAB CHEMISTRY METHOD 03/19/2025 7:27 AM [facility] Comment:Calculation based on the Chronic Kidney Disease Epidemiology Collaboration (CKD-EPI) equation refit without adjustment for race. BUN/Creatinine Ratio 19.8 LAB CHEMISTRY METHOD 03/19/2025 7:27 AM [facility] Calcium 10.7(H) 8.5 - 10.5 mg/dL LAB CHEMISTRY METHOD 03/19/2025 7:27 AM [facility] AST (SGOT) 12 10 - 42 unit/L LAB CHEMISTRY METHOD 03/19/2025 7:27 AM [facility] ALT (SGPT) 19 10 - 60 unit/L LAB CHEMISTRY METHOD 03/19/2025 7:27 AM [facility] Alkaline Phosphatase 194(H) 42 - 121 unit/L LAB CHEMISTRY METHOD 03/19/2025 7:27 AM [facility] Total Protein 8.5(H) 6.0 - 8.0 g/dL LAB CHEMISTRY METHOD 03/19/2025 7:27 AM [facility] Albumin 4.3 3.2 - 5.0 g/dL LAB CHEMISTRY METHOD 03/19/2025 7:27 AM [facility] Total Bilirubin 0.3 0.0 - 1.4 mg/dL LAB CHEMISTRY METHOD 03/19/2025 7:27 AM [facility] Blood Venous blood specimen / Unknown 03/19/2025 6:11 AM EDT 03/19/2025 6:36 AM EDT us Roby Roth MD LAB BLOOD ORDERABLES Final Resul t [facility] ([facility]) [facility] [address] [place] [address], documented in this encounter Visit Diagnoses Diagnosis Unspecified convulsions ([facility] V24, [facility] V28) 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 edema, unspecified eye ([facility] V24, [facility] V28) documented in this encounter Care Teams Motion Picture Projectionist Relationship Specialty Start Date End Date Roby Roth MD [address] [place], [place] PCP - General Internal Medicine 09/11/24 documented as of this encounter
--- OUTSIDE RECORDS SUMMARY | 2025-06-03 16:20 | XMS_ITS | Encounter Summary ---
Author Organization [facility] Address [address] [place] [address] Care Team Providers Care Drawstring Knotter Name Role Phone Roby Roth MD Primary Care Provider [phone] Encounter Details Date Type Department Care Team (Late st Contact Info) Description 05/02/2025 Lab Requisition [facility] - Main Lab [address] [place] [address] Roby Roth MD [address] [place] [address] Dr [address] [place], [place] Traumatic subarachnoid hemorrhage without loss of consciousness, sequela ([facility] V24); Encounter for therapeutic drug level monitoring Social History Tobacco Use Types Packs/Day Years [...] Date/Time Associated Diagnosis Comments THYROID STIMULATING HORMONE STAT 05/02/2025 12:00 AM EDT Traumatic subarachnoid hemorrhage without loss of consciousness, sequela ([facility] V24) Encounter for therapeutic drug level monitoring PHENYTOIN LEVEL, TOTAL STAT 05/02/2025 12:00 AM EDT Traumatic subarachnoid hemorrhage without loss of consciousness, sequela ([facility] V24) Encounter for therapeutic drug level monitoring documented in this encounter Results * Phenytoin level total (05/02/2025 12:00 AM EDT) Phenytoin Level 10.4 10.0 - 20.0 mcg/mL LAB CHEMISTRY METHOD 05/02/2025 10:42 PM EDT [facility] Blood Venous blood specimen / Unknown 05/02/2025 05/02/2025 10:13 PM EDT us Roby Roth MD LAB BLOOD ORDERABLES Final Resul t Performing Organization Address [facility]/ZIP Co de Phone Number [facility] [address] [place] [address], [place] [phone] * (ABNORMAL) Thyroid stimulating hormone (05/02/2025 12:00 AM EDT) TSH 0.21(L) 0.40 - 4.00 mcIU/mL LAB CHEMISTRY METHOD 05/02/2025 11:03 PM EDT [facility] Blood Venous blood specimen / Unknown 05/02/2025 05/02/2025 10:13 PM EDT us Roby Roth MD LAB BLOOD ORDERABLES Final Resul t Performing Organization Address City/[facility]/ZIP Co de Phone Number [facility] [address] [place] [address], [place] [phone] documented in this encounter Visit Diagnoses Diagnosis Traumatic subarachnoid hemorrhage without loss of consciousness, sequela (CMS/HCC V24) Encounter for therapeutic drug level monitoring documented in this encounter Care Teams Drawstring Knotter Relationship Specialty Start Date End Date Roby Roth MD [address] [place] [address] PCP - General Internal Medicine 09/11/24 documented as of this encounter
--- OUTSIDE RECORDS SUMMARY | 2025-06-03 16:20 | XMS_ITS | Encounter Summary ---
Author Organization [facility] Address [address] [place] [address] Care Team Providers Care Protective Signal Operator Name Role Phone Roby Roth MD Primary Care Provider [phone] Encounter Details Date Type Department Care Team (Late st Contact Info) Description 09/04/2024 Lab Requisition [facility] - Main Lab [address] [place] [address] Roby Roth MD [address] [place] [address] Dr [address] [place], [place] Traumatic subarachnoid hemorrhage without loss of [...] Associated Diagnosis Comments THYROID STIMULATING HORMONE Routine 09/04/2024 6:38 AM EST Traumatic subarachnoid hemorrhage without loss of consciousness, sequela (CMS/HCC) documented in this encounter Results * Thyroid stimulating hormone (09/04/2024 6:38 AM EST) TSH 1.41 0.40 - 4.00 mcIU/mL LAB CHEMISTRY METHOD 09/04/2024 8:14 AM EST [facility] ([facility]) [facility] Blood Venous blood specimen / Unknown 09/04/2024 6:38 AM EST 09/04/2024 7:13 AM EST us Roby Roth MD LAB BLOOD ORDERABLES Final Resul t [facility] [address] [place] [address], documented in this encounter Visit Diagnoses Diagnosis Traumatic subarachnoid hemorrhage without loss of consciousness, sequela (CMS/HCC V24) documented in this encounter Care Teams Protective Signal Operator Relationship Specialty Start Date End Date Roby Roth MD [address] [place] [address] Dr [address] [place], [place] PCP - General Internal Medicine 09/11/24 documented as of this encounter
--- OUTSIDE RECORDS SUMMARY | 2025-06-03 16:20 | XMS_ITS | Encounter Summary ---
Author Organization [facility] Address [address] [place] [address] Care Team Providers Care Stonecutter Name Role Phone Roby Roth MD Primary Care Provider [phone] Encounter Details Date Type Department Care Team (Late st Contact Info) Description 08/07/2024 Lab Requisition [facility] - Main Lab [address] [place] [address] Roby Roth MD [address] [place] [address] Dr [address] [place], [place] Traumatic subarachnoid hemorrhage without loss of [...] Associated Diagnosis Comments PHENYTOIN LEVEL, TOTAL Routine 08/07/2024 9:31 AM EST Traumatic subarachnoid hemorrhage without loss of consciousness, sequela (CMS/HCC) documented in this encounter Results * (ABNORMAL) Phenytoin level total (08/07/2024 9:31 AM EST) Phenytoin Level 9.3(L) 10.0 - 20.0 mcg/mL LAB CHEMISTRY METHOD 08/07/2024 10:47 AM EST [facility] Blood Venous blood specimen / Unknown 08/07/2024 9:31 AM EST 08/07/2024 10:15 AM EST us Roby Roth MD LAB BLOOD ORDERABLES Final Resul t [facility] LAB [address] [place] [address], documented in this encounter Visit Diagnoses Diagnosis Traumatic subarachnoid hemorrhage without loss of consciousness, sequela (CMS/HCC V24) documented in this encounter Care Teams Stonecutter Relationship Specialty Start Date End Date Roby Roth MD [address] [place], [place] PCP - General Internal Medicine 09/11/24 documented as of this encounter
--- OUTSIDE RECORDS SUMMARY | 2025-06-03 16:20 | XMS_ITS | Encounter Summary ---
Author Organization [facility] Address [address] [place] [address] Care Team Providers Care Hip Hop Dancer Name Role Phone Roby Roth MD Primary Care Provider [phone] Encounter Details Date Type Department Care Team (Late st Contact Info) Description 01/19/2025 Lab Requisition [facility] - Main Lab [address] [facility] [place] [address] Roby Roth MD [address] [place] [address] Dr [address] [place], [place] Epilepsy, unspecified, not intractable, with status epilepticus (CMS/[facility] V24, CMS/[facility] V28) Social History Tobacco Use Types Packs/Day [...] Associated Diagnosis Comments SST - GOLD Routine 01/19/2025 6:50 AM EDT Epilepsy, unspecified, not intractable, with status epilepticus (CMS/HCC V24, CMS/[facility] V28) PHENYTOIN LEVEL, TOTAL Routine 01/19/2025 6:50 AM EDT Epilepsy, unspecified, not intractable, with status epilepticus (CMS/HCC V24, CMS/HCC V28) documented in this encounter Results * SST tube (01/19/2025 6:50 AM EDT) Extra Tube Hold for add-ons. 01/19/2025 9:01 AM EDT [facility] Comment:Auto resulted. Blood Venous blood specimen / Unknown 01/19/2025 6:50 AM EDT 01/19/2025 7:22 AM EDT us Roby Roth MD LAB BLOOD ORDERABLES Final Resul t Performing Organization Address [facility]/ZIP Co de Phone Number [facility] LAB [address] [place] [address], [place] [phone] * Phenytoin level total (01/19/2025 6:50 AM EDT) Phenytoin Level 14.0 10.0 - 20.0 mcg/mL LAB CHEMISTRY METHOD 01/19/2025 8:10 AM EDT [facility] Blood Venous blood specimen / Unknown 01/19/2025 6:50 AM EDT 01/19/2025 7:22 AM EDT us Roby Roth MD LAB BLOOD ORDERABLES Final Resul t Performing Organization Address [facility]/ZIP Co de Phone Number [facility] [address] [place] [address], [place] [phone] documented in this encounter Visit Diagnoses Diagnosis Epilepsy, unspecified, not intractable, with status epilepticus (CMS/HCC V24, CMS/HCC V28) documented in this encounter Care Teams Hip Hop Dancer Relationship Specialty Start Date End Date Roby Roth MD [address] [place] [address] [address] [place] [address] [place] PCP - General Internal Medicine 09/11/24 documented as of this encounter
--- OUTSIDE RECORDS SUMMARY | 2025-06-03 16:20 | XMS_ITS | Encounter Summary ---
Author Organization [facility] Address [address] [place] [address] Care Team Providers Care Assistant Professor Sculpture Name Role Phone Roby Roth MD Primary Care Provider [phone] Encounter Details Date Type Department Care Team (Latest Contact Info) Description 04/25/2025 Lab Requisition [facility] - Main Lab [address] [facility] [place] [address] Roby Roth MD [address] [place] [address] Dr [address] [place], [place] 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 edema, unspecified eye (CMS/[facility] V24, CMS/[facility] V28) Social History Tobacco Use Types [...] Associated Diagnosis Comments THYROID STIMULATING HORMONE STAT 04/25/2025 1:15 PM EDT 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 edema, unspecified eye (CMS/HCC V24, CMS/[facility] V28) PHENYTOIN LEVEL, TOTAL STAT 04/25/2025 1:15 PM EDT 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 edema, unspecified eye (CMS/HCC V24, CMS/[facility] V28) documented in this encounter Results * Thyroid stimulating hormone (04/25/2025 1:15 PM EDT) TSH 0.47 0.40 - 4.00 mcIU/mL LAB CHEMISTRY METHOD 04/25/2025 3:20 PM EDT [facility] Blood Venous blood specimen / Unknown 04/25/2025 1:15 PM EDT 04/25/2025 2:07 PM EDT Roby Roth MD LAB BLOOD ORDERABLES Final Resul t Performing Organization Address City/[facility]/ZIP Co de Phone Number [facility] LAB [address] [place] [address], [place] [phone] * Phenytoin level total (04/25/2025 1:15 PM EDT) Phenytoin Level 14.1 10.0 - 20.0 mcg/mL LAB CHEMISTRY METHOD 04/25/2025 2:58 PM EDT [facility] Blood Venous blood specimen / Unknown 04/25/2025 1:15 PM EDT 04/25/2025 2:07 PM EDT Roby Roth MD LAB BLOOD ORDERABLES Final Resul t Performing Organization Address [facility]/ZIP Co de Phone Number [facility] [address] [place] [address], [place] [phone] documented in this encounter Visit Diagnoses Diagnosis 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 edema, unspecified eye (CMS/HCC V24, CMS/HCC V28) documented in this encounter Care Teams Assistant Professor Sculpture Relationship Specialty Start Date End Date Roby oRth MD [address] [place] [address] Dr Raciel Guerrero MD PCP - General Internal Medicine 09/11/24 documented as of this encounter
--- OUTSIDE RECORDS SUMMARY | 2025-06-03 16:20 | XMS_ITS | Encounter Summary ---
Author Organization [facility] Address [address] [place] [address] Care Team Providers Care Semiconductor Lab Technician Name Role Phone Roby Roth MD Primary Care Provider [phone] Encounter Details Date Type Department Care Team (Late st Contact Info) Description 07/24/[address] [facility] - Main Lab [address] [facility] [place] [address] Roby Roth MD [address] [place] [address] [address] [place], [place] Hypothyroidism, unspecified; Unspecified convulsions (CMS/HCC V24, CMS/HCC V28) Social [...] Diagnosis Comments CBC WITH AUTO DIFFERENTIAL Routine 07/24/2024 4:55 AM EST Hypothyroidism, unspecified Unspecified convulsions (CMS/HCC) HALOPERIDOL LEVEL Routine 07/24/2024 4:5 5 AM EST Hypothyroidism, unspecified Unspecified convulsions (CMS/HCC) LEVETIRACETAM LEVEL Routine 07/24/2024 4 :55 AM EST Hypothyroidism, unspecified Unspecified convulsions (CMS/HCC) CBC AND DIFFERENTIAL Routine 07/24/2024 4:55 AM EST Hypothyroidism, unspecified Unspecified convulsions (CMS/HCC) THYROID STIMULATING HORMONE Routine 07/24/2024 4:55 AM EST Hypothyroidism, unspecified Unspecified convulsions (CMS/HCC) PHENYTOIN LEVEL, TOTAL Routine 4:55 AM EST Hypothyroidism, unspecified Unspecified convulsions (CMS/HCC) COMPREHENSIVE METABOLIC PANEL Routine 07/24/2024 4:55 AM EST Hypothyroidism, unspecified Unspecified convulsions (CMS/HCC) documented in this encounter Results * (ABNORMAL) CBC auto differential (07/24/2024 4:55 AM EST) [facility] WBC 8.9 4.8 - 10.8 K/mcL LAB HEMETOLOGY METHOD 07/24/2024 6:27 AM [facility] RBC 3.50(L) 3.80 - 4.80 M/mcL LAB HEMETOLOGY METHOD 07/24/2024 6:27 AM [facility] Hemoglobin 10.0(L) 11.5 - 16.0 g/dL LAB HEMETOLOGY METHOD 07/24/2024 6:27 AM [facility] Hematocrit 31.4(L) 35.0 - 47.0 % LAB HEMETOLOGY METHOD 07/24/2024 6:27 AM [facility] MCV 89.0 79.0 - 98.0 FL LAB HEMETOLOGY METHOD 07/24/2024 6:27 AM [facility] MCH 28.3 27.0 - 32.0 pcg LAB HEMETOLOGY METHOD 07/24/2024 6:27 AM [facility] MCHC 31.8(L) 32.0 - 37.0 g/dL LAB HEMETOLOGY METHOD 07/24/2024 6:27 AM [facility] RDW 13.7 11.0 - 15.0 % LAB HEMETOLOGY METHOD 07/24/2024 6:27 AM [facility] Platelets 243 130 - 400 K/mcL LAB HEMETOLOGY METHOD 07/24/2024 6:27 AM [facility] MPV 10.8 7.0 - 11.0 FL LAB HEMETOLOGY METHOD 07/24/2024 6:27 AM [facility] NRBC 0.0 <1.0 % LAB HEMETOLOGY METHOD 07/24/2024 6:27 AM [facility] NRBC Absolute 0.00 <0.10 K/mcL LAB HEMETOLOGY METHOD 07/24/2024 6:27 AM [facility] Neutrophils Relative 65.4 % LAB HEMETOLOGY METHOD 07/24/2024 6:27 AM [facility] Lymphocytes Relative 27.0 % LAB HEMETOLOGY METHOD 07/24/2024 6:27 AM [facility] Monocytes Relative 7.0 % LAB HEMETOLOGY METHOD 07/24/2024 6:27 AM [facility] Eosinophils Relative 0.2 % LAB HEMETOLOGY METHOD 07/24/2024 6:27 AM [facility] Basophils Relative 0.2 % LAB HEMETOLOGY METHOD 07/24/2024 6:27 AM [facility] Immature Granulocytes Relative 0.2 % LAB HEMETOLOGY METHOD 07/24/2024 6:27 AM [facility] Neutrophils Absolute 5.83 1.50 - 7.00 K/mcL LAB HEMETOLOGY METHOD 07/24/2024 6:27 AM [facility] Lymphocytes Absolute 2.41 1.00 - 5.00 K/mcL LAB HEMETOLOGY METHOD 07/24/2024 6:27 AM [facility] Monocytes Absolute 0.62 0.20 - 1.00 K/mcL LAB HEMETOLOGY METHOD 07/24/2024 6:27 AM [facility] Eosinophils Absolute 0.02 0.00 - 0.50 K/mcL LAB HEMETOLOGY METHOD 07/24/2024 6:27 AM EST [facility] Basophils Absolute 0.02 0.00 - 0.20 K/[facility] LAB HEMETOLOGY METHOD 07/24/2024 6:27 AM EST [facility] Immature Granulocytes Absolute 0.02 0.00 - 0.03 K/[facility] LAB HEMETOLOGY METHOD 07/24/2024 6:27 AM EST [facility] Blood Venous blood specimen / Unknown 07/24/2024 4:55 AM EST 07/24/2024 6:26 AM EST us Roby Roth MD LAB BLOOD ORDERABLES Final Resul t Performing Organization Address City/[facility]/ZIP Co de Phone Number [facility] [address] [place] [address], [place] [phone] * (ABNORMAL) Thyroid stimulating hormone (07/24/2024 4:55 AM EST) TSH 13.12(H) 0.40 - 4.00 mcIU/mL LAB CHEMISTRY METHOD 07/24/2024 7:00 AM EST [facility] Blood Venous blood specimen / Unknown 07/24/2024 4:55 AM EST 07/24/2024 6:26 AM EST us Roby Roth MD LAB BLOOD ORDERABLES Final Resul t [facility] [address] [place] [address], [place] [phone] * (ABNORMAL) Phenytoin level total (07/24/2024 4:55 AM EST) Phenytoin Level 8.3(L) 10.0 - 20.0 mcg/mL LAB CHEMISTRY METHOD 07/24/2024 6:51 AM EST [facility] Blood Venous blood specimen / Unknown 07/24/2024 4:55 AM EST 07/24/2024 6:26 AM EST us Roby Roth MD LAB BLOOD ORDERABLES Final Resul t Performing Organization Address City/[facility]/ZIP Co de Phone Number [facility] [address] [place] [address], * (ABNORMAL) Haloperidol level (07/24/2024 4:55 AM EST) Haloperidol 3(L) 5 - 15 ng/mL 08/05/2024 3:18 PM EST [facility] Comment: This test was developed and its analytical performance characteristics have been determined by [employer]. It has not been cleared or approved by the FDA. This assay has been validated pursuant to the CLIA regulations and is used for clinical purposes. TEST PERFORMED AT: [employer] [address] [address] EVAN MOSCOSO MD Blood Venous blood specimen / Unknown 07/24/2024 4:55 AM EST 07/24/2024 6:26 AM EST us Roby Roth MD LAB BLOOD ORDERABLES Final Resul t Performing Organization Address City/[facility]/ZIP Co de Phone Number [facility] [address] [place] [address] * Levetiracetam level (07/24/2024 4:55 AM EST) Levetiracetam 31.5 3.0 - 60.0 ug/mL 07/27/2024 6:16 AM EST [facility] Comment: Steady state trough serum or plasma levels following doses of 1000 to 3000 mg/Day: 3 to 37 ug/mL. The same dosage regimen will typically result in peak levels of 10 to 60 ug/mL, at approximately 1.5 hours post dose. If applicable, any drug confirmation testing reported here was developed and the performance characteristics determined by [facility]. This confirmation testing has not been cleared or approved by the FDA. The laboratory is regulated under CLIA as qualified to perform high-complexity testing. This test is used for patient testing purposes. It should not be regarded as investigational or for research. Test performed at [facility], [address], [place] [address] Fatemeh Godfrey MD, PhD - Patent Prosecution Paralegal Blood Venous blood specimen / Unknown 07/24/2024 4:55 AM EST 07/24/2024 6:26 AM EST us Roby Roth MD LAB BLOOD ORDERABLES Final Resul t [facility] [address] [place] [address] * (ABNORMAL) Comprehensive metabolic panel (07/24/2024 4:55 AM EST) Sodium 130(L) 133 - 145 mmol/L LAB CHEMISTRY METHOD 07/24/2024 6:51 AM [facility] Potassium 4.2 3.5 - 5.5 mmol/L LAB CHEMISTRY METHOD 07/24/2024 6:51 AM [facility] Chloride 96 96 - 110 mmol/L LAB CHEMISTRY METHOD 07/24/2024 6:51 AM [facility] CO2 25 21 - 32 mmol/L LAB CHEMISTRY METHOD 07/24/2024 6:51 AM [facility] Anion Gap 9 3 - 11 LAB CHEMISTRY METHOD 07/24/2024 6:51 AM [facility] Glucose 253(H) 70 - 100 mg/dL LAB CHEMISTRY METHOD 07/24/2024 6:51 AM [facility] BUN 41(H) 5 - 25 mg/dL LAB CHEMISTRY METHOD 07/24/2024 6:51 AM [facility] Creatinine 2.14(H) 0.50 - 1.10 mg/dL LAB CHEMISTRY METHOD 07/24/2024 6:51 AM [facility] eGFR 27(L) >=60 mL/min/1. 73m2 LAB CHEMISTRY METHOD 07/24/2024 6:51 AM [facility] Comment:Calculation based on the Chronic Kidney Disease Epidemiology Collaboration (CKD-EPI) equation refit without adjustment for race. BUN/Creatinine Ratio 19.2 LAB CHEMISTRY METHOD 07/24/2024 6:51 AM [facility] Calcium 9.8 8.5 - 10.5 mg/dL LAB CHEMISTRY METHOD 07/24/2024 6:51 AM [facility] AST (SGOT) 18 10 - 42 unit/L LAB CHEMISTRY METHOD 07/24/2024 6:51 AM [facility] ALT (SGPT) 26 10 - 60 unit/L LAB CHEMISTRY METHOD 07/24/2024 6:51 AM [facility] Alkaline Phosphatase 183(H) 42 - 121 unit/L LAB CHEMISTRY METHOD 07/24/2024 6:51 AM [facility] Total Protein 8.1(H) 6.0 - 8.0 g/dL LAB CHEMISTRY METHOD 07/24/2024 6:51 AM [facility] Albumin 4.2 3.2 - 5.0 g/dL LAB CHEMISTRY METHOD 07/24/2024 6:51 AM [facility] Total Bilirubin 0.2 0.0 - 1.4 mg/dL LAB CHEMISTRY METHOD 07/24/2024 6:51 AM [facility] Blood Venous blood specimen / Unknown 07/24/2024 4:55 AM EST 07/24/2024 6:26 AM EST us Roby Roth MD LAB BLOOD ORDERABLES Final Resul t [facility] [address] [place] [address], documented in this encounter Visit Diagnoses Diagnosis Hypothyroidism, unspecified Unspecified convulsions (CMS/HCC V24, CMS/HCC V28) documented in this encounter Care Teams Semiconductor Lab Technician Relationship Specialty Start Date End Date Roby Roth MD [address] [place] [address] Dr [address] [facility] [place], [place] PCP - General Internal Medicine 09/11/24 documented as of this encounter
--- OUTSIDE RECORDS SUMMARY | 2025-06-03 16:20 | XMS_ITS | Encounter Summary ---
Author Organization [facility] Address [address] [place] [address] Care Team Providers Care Sample Checker Name Role Phone Roby Roth MD Primary Care Provider [phone] Encounter Details Date Type Department Care Team (Late st Contact Info) Description 08/15/2024 Lab Requisition [facility] - Main Lab [address] [facility] [place] [address] Roby Roth MD [address] [place] [address] [address] [place], [place] Unspecified convulsions (CMS/HCC V24, CMS/HCC V28) [...] Associated Diagnosis Comments PHENYTOIN LEVEL, TOTAL STAT 08/15/2024 6:20 AM EST Unspecified convulsions (CMS/HCC) documented in this encounter Results * Phenytoin level total (08/15/2024 6:20 AM EST) Phenytoin Level 12.2 10.0 - 20.0 mcg/mL LAB CHEMISTRY METHOD 08/15/2024 8:09 AM EST [facility] Blood Venous blood specimen / Unknown 08/15/2024 6:20 AM EST 08/15/2024 7:49 AM EST us Roby Roth MD LAB BLOOD ORDERABLES Final Resul t [facility] ([facility]) HOSPITAL LAB [address] [place] [address], documented in this encounter Visit Diagnoses Diagnosis Unspecified convulsions (CMS/HCC V24, CMS/HCC V28) documented in this encounter Care Teams Sample Checker Relationship Specialty Start Date End Date Roby Roth MD [address] [place], [place] PCP - General Internal Medicine 09/11/24 documented as of this encounter
--- OUTSIDE RECORDS SUMMARY | 2025-06-03 16:20 | XMS_ITS | Encounter Summary ---
Author Organization [facility] Address [address] [place] [address] Care Team Providers Care Injection Molding Technician Name Role Phone Roby Roth MD Primary Care Provider [phone] Encounter Details Date Type Department Care Team (Latest Contact Info) Description 12/17/2024 Lab Requisition [facility] - Main Lab [address] [facility] [place] [address] Roby Roth MD [address] [place] [address] Dr [address] [place], [place] 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 edema, unspecified eye (CMS/HCC V24, CMS/[facility] V28) Social History Tobacco Use Types Packs/Day [...] PANEL WITH REFLEX TO DIRECT LDL Routine 12/17/2024 6:55 AM EDT 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 edema, unspecified eye (CMS/HCC V24, CMS/HCC V28) LAVENDER - EDTA Routine 12/17/2024 6:55 AM EDT 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 edema, unspecified eye (CMS/HCC V24, CMS/HCC V28) VITAMIN D 25 HYDROXY Routine 12/17/2024 6:55 AM EDT 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 edema, unspecified eye (CMS/HCC V24, CMS/HCC V28) LEVETIRACETAM LEVEL Routine 12/17/2024 6 :55 AM EDT 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 edema, unspecified eye (CMS/HCC V24, CMS/HCC V28) COMPLETE BLOOD COUNT Routine 12/17/2024 6:55 AM EDT 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 edema, unspecified eye (CMS/HCC V24, CMS/HCC V28) THYROID STIMULATING HORMONE Routine 12/17/2024 6:55 AM EDT 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 edema, unspecified eye (CMS/HCC V24, CMS/HCC V28) THYROXINE FREE Routine 12/17/2024 6:55 AM EDT 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 edema, unspecified eye (CMS/HCC V24, CMS/HCC V28) HEMOGLOBIN A1C Routine 12/17/2024 6:55 AM EDT 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 edema, unspecified eye (CMS/HCC V24, CMS/HCC V28) PHENYTOIN LEVEL, TOTAL Routine 12/17/2024 6:55 AM EDT 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 edema, unspecified eye (CMS/HCC V24, CMS/HCC V28) COMPREHENSIVE METABOLIC PANEL Routine 12/17/2024 6:55 AM EDT 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 edema, unspecified eye (CMS/HCC V24, CMS/HCC V28) documented in this encounter Results * Lavender tube (12/17/2024 6:55 AM EDT) Extra Tube Hold for add-ons. 12/17/2024 9:01 AM EDT [facility] Comment:Auto resulted. Blood Venous blood specimen / Unknown 12/17/2024 6:55 AM EDT 12/17/2024 7:32 AM EDT us Roby Roth MD LAB BLOOD ORDERABLES Final Resul t [facility] [address] [place] [address], [place] [phone] * (ABNORMAL) Complete blood count (12/17/2024 6:55 AM EDT) [facility] WBC 3.9(L) 4.8 - 10.8 K/mcL LAB HEMETOLOGY METHOD 12/17/2024 8:49 AM EDT [facility] RBC 3.70(L) 3.80 - 4.80 M/mcL LAB HEMETOLOGY METHOD 12/17/2024 8:[facility] Hemoglobin 10.7(L) 11.5 - 16.0 g/dL LAB HEMETOLOGY METHOD 12/17/2024 8:49 AM EDT [facility] Hematocrit 33.6(L) 35.0 - 47.0 % LAB HEMETOLOGY METHOD 12/17/2024 8:49 AM [facility] MCV 90.8 79.0 - 98.0 FL LAB HEMETOLOGY METHOD 12/17/2024 8:49 AM EDT [facility] MCH 28.9 27.0 - 32.0 pcg LAB HEMETOLOGY METHOD 12/17/2024 8:49 AM EDT [facility] MCHC 31.8(L) 32.0 - 37.0 g/dL LAB HEMETOLOGY METHOD 12/17/2024 8:49 AM [facility] RDW 14.5 11.0 - 15.0 % LAB HEMETOLOGY METHOD 12/17/2024 8:49 AM [facility] Platelets 213 130 - 400 K/mcL LAB HEMETOLOGY METHOD 12/17/2024 8:49 AM EDT [facility] MPV 10.9 7.0 - 11.0 FL LAB HEMETOLOGY METHOD 12/17/2024 8:49 AM EDT [facility] NRBC 0.0 <1.0 % LAB HEMETOLOGY METHOD 12/17/2024 8:49 AM EDT [facility] NRBC Absolute 0.00 <0.10 K/mcL LAB HEMETOLOGY METHOD 12/17/2024 8:49 AM EDT [facility] Blood Venous blood specimen / Unknown 12/17/2024 6:55 AM EDT 12/17/2024 7:32 AM EDT us Roby Roth MD LAB BLOOD ORDERABLES Final Resul t Performing Organization Address City/[facility]/ZIP Co de Phone Number [facility] [address] [place] [address], [place] [phone] * Vitamin D 25 hydroxy (12/17/2024 6:55 AM EDT) Vit D, 25-Hydroxy 58.7 30.0 - 80.0 ng/mL LAB CHEMISTRY METHOD 12/17/2024 10:53 AM EDT [facility] Blood Venous blood specimen / Unknown 12/17/2024 6:55 AM EDT 12/17/2024 7:32 AM EDT us Roby Roth MD LAB BLOOD ORDERABLES Final Resul t [facility] [address] [place] [address], [place] [phone] * (ABNORMAL) Thyroid stimulating hormone (12/17/2024 6:55 AM EDT) TSH 133.29(H) 0.40 - 4.00 mcIU/mL LAB CHEMISTRY METHOD 12/17/2024 1:07 PM EDT [facility] Comment:Results verified by repeat testing Blood Venous blood specimen / Unknown 12/17/2024 6:55 AM EDT 12/17/2024 7:32 AM EDT us Roby Roth MD LAB BLOOD ORDERABLES Final Resul t Performing Organization Address [facility]/ZIP Co de Phone Number [facility] [address] [place] [address], [place] [phone] * (ABNORMAL) Thyroxine free (12/17/2024 6:55 AM EDT) Free T4 0.39(L) 0.70 - 1.80 ng/dL LAB CHEMISTRY METHOD 12/17/2024 10:54 AM EDT [facility] Blood Venous blood specimen / Unknown 12/17/2024 6:55 AM EDT 12/17/2024 7:32 AM EDT us Roby Roth MD LAB BLOOD ORDERABLES Final Resul t Performing Organization Address [facility] de Phone Number [facility] [address] [place] [address], [place] [phone] * Levetiracetam level (12/17/2024 6:55 AM EDT) Levetiracetam 24.1 3.0 - 60.0 ug/mL 12/19/2024 1:56 PM EDT [facility] Comment: Steady state trough serum or plasma levels following doses of 1000 to 3000 mg/Day: 3 to 37 ug/mL. The same dosage regimen will typically result in peak levels of 10 to 60 ug/mL, at approximately 1.5 hours post dose. If applicable, any drug confirmation testing reported here was developed and the performance characteristics determined by [facility]. This confirmation testing has not been cleared or approved by the FDA. The laboratory is regulated under CLIA as qualified to perform high-complexity testing. This test is used for patient testing purposes. It should not be regarded as investigational or for research. Test performed at [facility], [address], [place] [address] Fatemeh Godfrey MD, PhD - Superintendent [employer] Blood Venous blood specimen / Unknown 12/17/2024 6:55 AM EDT 12/17/2024 7:32 AM EDT us Roby Roth MD LAB BLOOD ORDERABLES Final Resul t [facility] [address] [place] [address] * (ABNORMAL) Hemoglobin A1c (12/17/2024 6:55 AM EDT) Hemoglobin A1C 8.8(H) <6.5 % LAB CHEMISTRY METHOD 12/17/2024 10:36 AM EDT [facility] Mean Bld Glu Estim. 206 mg/dL LAB CHEMISTRY METHOD 12/17/2024 10:36 AM EDT [facility] Blood Venous blood specimen / Unknown 12/17/2024 6:55 AM EDT 12/17/2024 7:32 AM EDT us Roby Roth MD LAB BLOOD ORDERABLES Final Resul t Performing Organization Address [facility]/ZIP Co de Phone Number [facility] [address] [place] [address], [place] [phone] * (ABNORMAL) Phenytoin level total (12/17/2024 6:55 AM EDT) Phenytoin Level 36.8(HH) 10.0 - 20.0 mcg/mL LAB CHEMISTRY METHOD 12/17/2024 10:06 AM EDT [facility] Comment:Results verified by repeat testing Blood Venous blood specimen / Unknown 12/17/2024 6:55 AM EDT 12/17/2024 7:32 AM EDT us Roby Roth MD LAB BLOOD ORDERABLES Final Resul t [facility] [address] [place] [address], [place] [phone] * Lipid panel with reflex to direct LDL (12/17/2024 6:55 AM EDT) Cholesterol 197 0 - 200 mg/dL LAB CHEMISTRY METHOD 12/17/2024 9:11 AM EDT [facility] Triglycerides 72 0 - 150 mg/dL LAB CHEMISTRY METHOD 12/17/2024 9:11 AM EDT [facility] HDL 103 >=40 mg/dL LAB CHEMISTRY METHOD 12/17/2024 9:11 AM EDT [facility] LDL Calculated 80 0 - 100 mg/dL LAB CHEMISTRY METHOD 12/17/2024 9:11 AM EDT [facility] VLDL Cholesterol Oskar 14.4 mg/dL LAB CHEMISTRY METHOD 12/17/2024 9:11 AM EDT [facility] Non HDL Chol. (LDL+VLDL) 94 <145 mg/dL LAB CHEMISTRY METHOD 12/17/2024 9:11 AM EDT [facility] Chol/HDL Ratio 1.9 0.0 - 4.4 LAB CHEMISTRY METHOD 12/17/2024 9:11 AM T [facility] Blood Venous blood specimen / Unknown 12/17/2024 6:55 AM EDT 12/17/2024 7:32 AM EDT us Roby Roth MD LAB BLOOD ORDERABLES Final Resul t [facility] [address] [place] [address], [place] [phone] * (ABNORMAL) Comprehensive metabolic panel (12/17/2024 6:55 AM EDT) Sodium 133 133 - 145 mmol/L LAB CHEMISTRY METHOD 12/17/2024 9:11 AM [facility] Potassium 4.5 3.5 - 5.5 mmol/L LAB CHEMISTRY METHOD 12/17/2024 9:11 AM [facility] Chloride 100 96 - 110 mmol/L LAB CHEMISTRY METHOD 12/17/2024 9:11 AM [facility] CO2 28 21 - 32 mmol/L LAB CHEMISTRY METHOD 12/17/2024 9:11 AM [facility] Anion Gap 5 3 - 11 LAB CHEMISTRY METHOD 12/17/2024 9:11 AM [facility] Glucose 173(H) 70 - 100 mg/dL LAB CHEMISTRY METHOD 12/17/2024 9:11 AM [facility] BUN 28(H) 5 - 25 mg/dL LAB CHEMISTRY METHOD 12/17/2024 9:11 AM [facility] Creatinine 1.49(H) 0.50 - 1.10 mg/dL LAB CHEMISTRY METHOD 12/17/2024 9:11 AM [facility] eGFR 41(L) >=60 mL/min/1. 73m2 LAB CHEMISTRY METHOD 12/17/2024 9:11 AM [facility] Comment:Calculation based on the Chronic Kidney Disease Epidemiology Collaboration (CKD-EPI) equation refit without adjustment for race. BUN/Creatinine Ratio 18.8 LAB CHEMISTRY METHOD 12/17/2024 9:11 AM [facility] Calcium 9.8 8.5 - 10.5 mg/dL LAB CHEMISTRY METHOD 12/17/2024 9:11 AM [facility] AST (SGOT) 40 10 - 42 unit/L LAB CHEMISTRY METHOD 12/17/2024 9:11 AM [facility] ALT (SGPT) 50 10 - 60 unit/L LAB CHEMISTRY METHOD 12/17/2024 9:11 AM [facility] Alkaline Phosphatase 192(H) 42 - 121 unit/L LAB CHEMISTRY METHOD 12/17/2024 9:11 AM EDT [facility] Total Protein 8.8(H) 6.0 - 8.0 g/dL LAB CHEMISTRY METHOD 12/17/2024 9:11 AM EDT [facility] Albumin 4.4 3.2 - 5.0 g/dL LAB CHEMISTRY METHOD 12/17/2024 9:11 AM EDT [facility] Total Bilirubin 0.2 0.0 - 1.4 mg/dL LAB CHEMISTRY METHOD 12/17/2024 9:11 AM EDT [facility] Blood Venous blood specimen / Unknown 12/17/2024 6:55 AM EDT 12/17/2024 7:32 AM EDT us Roby Roth MD LAB BLOOD ORDERABLES Final Resul t [facility] [address] [place] [address], documented in this encounter Visit Diagnoses Diagnosis 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 edema, unspecified eye (CMS/HCC V24, CMS/HCC V28) documented in this encounter Care Teams Injection Molding Technician Relationship Specialty Start Date End Date Roby Roth MD [address] [place], [place] PCP - General Internal Medicine 09/11/24 documented as of this encounter
--- OUTSIDE RECORDS SUMMARY | 2025-06-03 16:20 | XMS_ITS | Encounter Summary ---
Author Organization [facility] Address [address] [place] [address] Care Team Providers Care Front End Drupal Developer Name Role Phone Roby Roth MD Primary Care Provider [phone] Encounter Details Date Type Department Care Team (Late st Contact Info) Description 12/29/2024 Lab Requisition [facility] - Main Lab [address] [place] [address] Roby Roth MD [address] [place] [address] Dr [address] [place], [place] Hypothyroidism, unspecified Social History Tobacco Use [...] Associated Diagnosis Comments THYROID STIMULATING HORMONE Routine 12/29/2024 6:40 AM EDT Hypothyroidism, unspecified PHENYTOIN LEVEL, TOTAL Routine 12/29/2024 6:40 AM EDT Hypothyroidism, unspecified documented in this encounter Results * (ABNORMAL) Thyroid stimulating hormone (12/29/2024 6:40 AM EDT) TSH 7.10(H) 0.40 - 4.00 mcIU/mL LAB CHEMISTRY METHOD 12/29/2024 9:15 AM EDT [facility] Blood Venous blood specimen / Unknown 12/29/2024 6:40 AM EDT 12/29/2024 7:07 AM EDT us Roby Roth MD LAB BLOOD ORDERABLES Final Resul t Performing Organization Address [facility] Co de Phone Number [facility] [address] [place] [address], [place] [phone] * (ABNORMAL) Phenytoin level total (12/29/2024 6:40 AM EDT) Phenytoin Level 37.4(HH) 10.0 - 20.0 mcg/mL LAB CHEMISTRY METHOD 12/29/2024 8:13 AM EDT [facility] Blood Venous blood specimen / Unknown 12/29/2024 6:40 AM EDT 12/29/2024 7:07 AM EDT Roby Roth MD LAB BLOOD ORDERABLES Final Resul t Performing Organization Address [facility] Co de Phone Number [facility] [address] [place] [address], [place] [phone] documented in this encounter Visit Diagnoses Diagnosis Hypothyroidism, unspecified documented in this encounter Care Teams Front End Drupal Developer Relationship Specialty Start Date End Date Roby Roth MD [address] [place], [place] PCP - General Internal Medicine 09/11/24 documented as of this encounter
--- OUTSIDE RECORDS SUMMARY | 2025-06-03 16:20 | XMS_ITS | Encounter Summary ---
Author Organization [facility] Address [address] [place] [address] Care Team Providers Care Vat Packer Name Role Phone Roby Roth MD Primary Care Provider [phone] Encounter Details Date Type Department Care Team (Late st Contact Info) Description 03/05/2025 Lab Requisition [facility] - Main Lab [address] [facility] [place] [address] Roby Roth MD [address] [place] [address] [address] [place], [place] Other machine long goods helper (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; Unspecified convulsions (CMS/HCC V24, CMS/HCC V28) Social [...] Associated Diagnosis Comments SST - GOLD Routine 03/05/2025 6:30 AM EDT Other penitentiary (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 Unspecified convulsions (CMS/HCC V24, CMS/HCC V28) SST - GOLD Routine 03/05/2025 6:30 AM EDT Other machine long goods helper (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 Unspecified convulsions (CMS/HCC V24, CMS/HCC V28) PHENYTOIN LEVEL, TOTAL Routine 03/05/2025 6:30 AM EDT Other penitentiary (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 Unspecified convulsions (CMS/HCC V24, CMS/HCC V28) documented in this encounter Results * (ABNORMAL) Phenytoin level total (03/05/2025 6:30 AM EDT) Phenytoin Level 4.2(L) 10.0 - 20.0 mcg/mL LAB CHEMISTRY METHOD 03/08/2025 8:36 AM EDT [facility] Blood Venous blood specimen / Unknown 03/05/2025 6:30 AM EDT 03/05/2025 7:37 AM EDT us Roby Roth MD LAB BLOOD ORDERABLES Final Resul t Performing Organization Address City/[facility]/ZIP Co de Phone Number [facility] [address] [place] [address], [place] [phone] * SST tube (03/05/2025 6:30 AM EDT) Extra Tube Hold for add-ons. 03/05/2025 9:01 AM EDT [facility] Comment:Auto resulted. Blood Venous blood specimen / Unknown 03/05/2025 6:30 AM EDT 03/05/2025 7:37 AM EDT us Roby Roth MD LAB BLOOD ORDERABLES Final Resul t Performing Organization Address [facility] Co de Phone Number [facility] [address] [place] [address], [place] [phone] * SST tube (03/05/2025 6:30 AM EDT) Extra Tube Hold for add-ons. 03/05/2025 9:01 AM EDT [facility] Comment:Auto resulted. Blood Venous blood specimen / Unknown 03/05/2025 6:30 AM EDT 03/05/2025 7:37 AM EDT us Roby Roth MD LAB BLOOD ORDERABLES Final Resul t Performing Organization Address City/[facility]/ZIP Co de Phone Number [facility] [address] [place] [address], documented in this encounter Visit Diagnoses Diagnosis Other penitentiary (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 Unspecified convulsions (CMS/HCC V24, CMS/HCC V28) documented in this encounter Care Teams Vat Packer Relationship Specialty Start Date End Date Roby Roth MD [address] [place] [address] Dr [address] [place], [place] PCP - General Internal Medicine 09/11/24 documented as of this encounter
== END 2025-06-03 13:44 | disposition home or self-care (01) ==
LOC: HO.HGI 13:04
PROVIDERS: Visit Provider Nurse Practitioner Family
DX: Z01.818 Encounter for other preprocedural examination (principal); Z12.11 Encounter for screening for malignant neoplasm of colon
CPT/HCPCS: 99203

== ENCOUNTER → 2025-06-03 13:03 | Outpatient (BNVA) | payer MEDICAID, SELFPAY | PROVIDERS: Visit Provider Nurse Practitioner Family | DX: Z01.818 Encounter for other preprocedural examination (principal) | CPT/HCPCS: 99202 ==

== ENCOUNTER 2025-06-12 12:25 | Inpatient (IN) | payer MEDICAID, SELFPAY ==
--- NOTE | ~2025-06-12 | CT_ITS ---
CLINICAL HISTORY: fall, head strike CT head without contrast Comparison: 07/09/2024 Findings: No intracranial mass, midline shift, hydrocephalus, or acute hemorrhage. No CT evidence of acute ischemia. Visualized paranasal sinuses and mastoid air cells normal. Orbits unremarkable. No skull fracture Impression: 1. No acute intracranial abnormalities. This document has been electronically signed by: Florencio Muñiz MD on 06/12/2025 15:14:15
--- NOTE | ~2025-06-12 | CT_ITS ---
CLINICAL HISTORY: elevated LFTs, hypothermia CT abdomen and pelvis without contrast Comparison: None provided Findings: Small hiatal hernia. Atelectasis. Hepatomegaly. Scattered subcentimeter low-density lesions throughout the liver, likely cysts or hemangiomas, too small to characterize. Thickening of the adrenal glands, with left-sided punctate calcification nonspecific. Right-sided hypodense renal cysts in the upper pole. Nonobstructive punctate 2 mm calculi in the right kidney. Duplex left renal collecting system with mild hydronephrosis, without obstructive calculus. No bowel obstruction, pneumoperitoneum, or pneumatosis. Large calcified uterine fibroid measuring 5.4 cm. Scattered colonic diverticulosis without diverticulitis or colitis. Normal appendix. Markedly distended bladder, recommend decompression. Osteopenia. IMPRESSION: 1. Nonobstructive punctate 2 mm calculi in the right kidney. 2. Duplex left renal collecting system with mild hydronephrosis, without obstructive calculus. 3. Markedly distended bladder, recommend decompression. This document has been electronically signed by: Jeremie Lobato MD on 06/12/2025 23:18:42
--- NOTE | ~2025-06-12 | CT_ITS ---
CLINICAL HISTORY: fall, head strike CT cervical spine without contrast Comparison: 07/09/2024 Findings: Normal limited view of the intracranial contents. Soft tissues of the neck are normal. Lung apices are normal. Normal vertebral body alignment. No fractures or dislocations. Similar mild degenerative disc disease, more significant C5-7.. Impression: 1. No cervical vertebral fracture or traumatic malalignment. This document has been electronically signed by: Florencio Muñiz MD on 06/12/2025 15:10:15
--- NOTE | ~2025-06-12 | XR_ITS ---
CLINICAL HISTORY: fall --- Additional Notes or Special Instructions: collared @1529 1 view chest x-ray. Comparison: 02/26/2024 Findings: No consolidation or effusion. Cardiac and mediastinal contours appear stable. Bones unremarkable. Impression: 1. No acute pulmonary disease. This document has been electronically signed by: Florencio Muñiz MD on 06/12/2025 17:11:00
--- NOTE | 2025-06-12 12:27 | ECG_ITS ---
Test Reason : FALL Blood Pressure : */* mmHG Vent. Rate : 78 BPM Atrial Rate : 78 BPM P-R Int : 146 ms QRS Dur : 86 ms QT Int : 400 ms P-R-T Axes : 83 32 35 degrees QTcB Int : 456 ms Normal sinus rhythm Possible Left atrial enlargement Borderline ECG When compared with ECG of 06-May-2024 20:14, T wave inversion no longer evident in Anterior leads Referred By: Sandi Napier Electronically Signed By: MIREILLE CHICAS MD
--- NOTE | 2025-06-12 12:55 | ED.FALL ---
HPI - Fall General Chief Complaint: Fall Stated Complaint: SNF fall w/ h/s. seizure?, - thinners, c-collar Time Seen by Provider: 06/12/25 12:35 Source: patient and EMS Mode of arrival: EMS Limitations: altered mental status History of Present Illness ED Provider: Hope Kiser APRN HPI Narrative: 53 old female with past medical history of TBI, dementia, history of SAH, seizure disorder, anxiety, mood disorder, diabetes, hypertension, hyperlipidemia, hypothyroidism, ESBL UTI presenting to emergency department via EMS from [facility] facility; [facility] for evaluation after an unwitnessed fall. Arrives sleeping, rouses to verbal, limited exam. Related Data Home Medications ?Medication ?Instructions ?Recorded ?Confirmed acetaminophen 325 mg tablet 650 mg PO Q6H PRN Pain 10/29/22 08/22/23 atorvastatin 10 mg tablet 10 mg PO BEDTIME 10/29/22 08/22/23 benztropine 1 mg tablet 1 mg PO BID 10/29/22 08/22/23 calcium 600 mg (as 2 tab PO DAILY 10/29/22 08/22/23 carbonate)-vitamin D3 10 mcg (400 unit) tablet (Calcium 600 + D(3)) cholecalciferol (vitamin D3) 1,250 1,250 mcg PO MO@0900 10/29/22 08/22/23 mcg (50,000 unit) capsule docusate sodium 100 mg capsule 100 mg PO BID 10/29/22 08/22/23 ferrous sulfate 324 mg (65 mg 324 mg PO DAILY 10/29/22 08/22/23 iron) tablet,delayed release gabapentin 600 mg tablet 600 mg PO TID 10/29/22 08/22/23 guaifenesin 100 mg/5 mL oral liquid 200 mg PO Q4H PRN Cough 10/29/22 08/22/23 haloperidol 10 mg tablet 10 mg PO BID 10/29/22 08/22/23 haloperidol 5 mg tablet 5 mg PO BID 10/29/22 08/22/23 hydroxyzine HCl 25 mg tablet 25 mg PO BID 10/29/22 08/22/23 ibuprofen 600 mg tablet 600 mg PO Q8H PRN Pain 10/29/22 08/22/23 insulin aspart U-100 100 unit/mL 1 sliding scale dose subcut 10/29/22 08/22/23 subcutaneous solution (Novolog USEASDIRECTD U-100 Insulin aspart) levetiracetam 1,000 mg tablet 1,000 mg PO BID 10/29/22 08/22/23 metformin 1,000 mg tablet 1,000 mg PO BID 10/29/22 08/22/23 oxcarbazepine 150 mg tablet 150 mg PO DAILY 10/29/22 08/22/23 (Trileptal) oxcarbazepine 300 mg tablet 300 mg PO BEDTIME 10/29/22 08/22/23 (Trileptal) phenytoin sodium extended 200 mg 200 mg PO MOWEFR@0900,209910/29/22 08/22/23 capsule quetiapine 25 mg tablet 25 mg PO BEDTIME 10/29/22 08/22/23 sennosides 8.6 mg tablet (senna) 8.6 mg PO DAILY PRN Constipation 10/29/22 08/22/23 sodium phosphates 19 gram-7 118 ml NJ DAILY PRN Constipation 10/29/22 08/22/23 gram/118 mL enema (Fleet Enema) cranberry fruit 450 mg tablet 450 mg PO DAILY 08/22/23 08/22/23 (cranberry) insulin glargine 100 unit/mL (3 10 unit subcut BEDTIME 08/22/23 08/22/23 mL) subcutaneous pen (Lantus Solostar U-100 Insulin) loperamide 2 mg capsule 2 mg PO Q6H PRN Loose Stool 08/22/23 08/22/23 ondansetron 4 mg disintegrating 4 mg PO Q6H PRN Nausea And Vomiting 08/22/23 08/22/23 tablet phenytoin 50 mg chewable tablet 50 mg PO SUTUTHSA@0900,209908/22/23 08/22/23 phenytoin sodium extended 100 mg 100 mg PO SUTUTHSA@0900,209908/22/23 08/22/23 capsule Previous Rx's ?Medication ?Instructions ?Recorded levothyroxine 100 mcg tablet 100 mcg PO DAILY@0600 #30 tabs 08/27/23 (Synthroid) sulfamethoxazole 800 1 tab PO Q12H #24 tabs 08/27/23 mg-trimethoprim 160 mg tablet bisacodyl 5 mg tablet,delayed 20 mg (4 x 5 mg) PO ONCE 06/03/25 release (Dulcolax (bisacodyl)) constipation 1 day #4 tabs polyethylene glycol 3350 17 238 g PO ONCE #238 grams 06/03/25 gram/dose oral powder (Miralax) Allergies Allergy/AdvReac Type Severity Reaction Status Date / Time chlorpromazine Allergy Intermediate HIVES Verified 06/12/25 13:06 (CHLORPROMAZINE) Review of Systems Review of Systems: Yes Unobtainable due to mental status PMFSH Past Medical History Attestation statement: The following information was validated with the patient. Source: old records reviewed and nursing notes reviewed Medical History Adjustment reaction with mixed disturbance of emotions and conduct Anxiety Mood disorder Leiomyoma of body of uterus Preglaucoma Presbyopia UTI (urinary tract infection) Hypothermia Long QT syndrome Sepsis COVID-19 Cystitis Hyperkalemia ESBL (extended spectrum beta-lactamase) producing bacteria infection Essential (primary) hypertension Diabetic retinopathy Anxiety Mood disorder Dementia Subarachnoid hemorrhage following injury TBI (traumatic brain injury) Unspecified dementia with behavioral disturbance Seizure disorder Hypothyroid Hyperlipidemia Diabetes Surgical History Hx of tubal ligation Family History Family History Mother Breast cancer Social History Social History Household Members: Other Housing: Custodial Do you presently have visiting nurse or other home services: No Alcohol intake: never Patient Tobacco Use Status: Never used Tobacco Smoked in Last 30 Days: No Use of substances other than those prescribed or required for medical reasons: No Advance Directives: Yes Advance Directives on File: Yes Advance Directives Date on File: 03/23/21 Patient : No service: No Current occupational status: disabled Physical Exam Vital Signs: Vital Signs: Last Vital Signs Temp 97.3 F 06/12/25 16:47 Pulse 60 06/12/25 16:47 Resp 12 06/12/25 16:47 BP 110/54 L 06/12/25 16:47 Pulse Ox 98 06/12/25 16:47 O2 Del Method Room Air 06/12/25 16:47 BMI result Body Mass Index 26.6 Const: Other: Sleeping rouses to verbal stimuli Limitations: altered mental status HEENT: Head: Yes normal to inspection, No Austin's sign and No raccoon eyes Ears: hearing grossly normal bilaterally and TM's normal bilaterally General nose exam: Normal external nose present Face and sinus: Yes normal facial exam Mouth: Normal oral and palatal mucosa present Mouth/tongue images:  1. +laceration Teeth image:  1. +avulsed tooth Throat: Yes posterior oropharynx normal Eyes: General: appearance normal, both eyes and all related structures Pupils: Equal, round and reactive pupils present Neck: Other: C collar in place Neck: Yes normal visual inspection Chest: Chest palpation & inspection: normal inspection of the chest Resp: Effort & Inspection: normal respiratory effort Auscultation: clear to auscultation bilaterally Cardio: Rate: regular rate Rhythm: regular rhythm Peripheral pulses: Peripheral pulses 2+ throughout GI: Inspection: Yes normal to inspection Palpation (GI): Soft to palpation and nontender Auscultation: normal bowel sounds Back/Spine/Pelvis: Thoracic/Lumbar Spine: thoracic and lumbar spine normal to inspection Skin: General skin exam: no rashes or lesions noted Neuro: General: moves all extremities, no focal motor deficits and normal sensation to monofilament Cranial nerves: Yes Equal, round and reactive pupils present Extrem: General: Yes normal to inspection, Yes no calf tenderness and Yes normal gait Course Course Course Narrative: Nursing and EMS informed me that the patient lost a upper tooth during the seizure. This tooth was found by the snf staff and they have it at the snf. Labs show a mild MARIBEL, hypochloremia and hyponatremia. Patient will receive 1 L of normal saline. Her hyponatremia is likely secondary to her Trileptal. Her lactic acid is elevated this is from seizure and not from infection. Fluids are infused Keppra level is pending, dilantin mildly low. Will give keppra IV 1g Reevaluation(s) Reevaluation #1: 1820-Patient sleeping, does rouse to verbal. Medications Administered Discontinued Medications Generic Name Dose Route Start Last Admin Trade Name Freq PRN Reason Stop Dose Admin Sodium Chloride 1,000 mls @ 999 mls/hr 06/12/25 14:36 06/12/25 16:19 Ns IV 06/12/25 15:36 Infused .Q1H1M STA Infusion Medical Decision Making Medical Decision Making MDM Narrative: 53 old female with past medical history of TBI, dementia, history of SAH, seizure disorder, anxiety, mood disorder, diabetes, hypertension, hyperlipidemia, hypothyroidism, ESBL UTI presenting to emergency department via EMS from [facility] facility; [facility] for evaluation after a fall. Arrives with eyes closed, rouses to verbal, follows simple commands, no able to provide history, shakes head no to pain question. Avulsed tooth noted (found at SNF). Lower lip laceration noted, no repair needed. VSS She may have had a seizure. Will obtain labs including dilantin/keppra level, UA, Ct head/cervical spine, EKG, CXR, viral testing Differential Diagnosis Differential Diagnoses: The differential diagnosis associated with the presentation includes Seizure, ICH, syncope MARIBEL Admission/Observation Consideration of admission/observation: Escalation of care including admission/observation considered MARIBEL with hyponatremia with seizure either secondary to hyponatremia or from underlying seizure disorder with prolonged postictal state Consult Healthcare Provider Management of the patient was discussed with: Hospitalist Cheko accepted admit Lab Data [facility] Lab Attestation statement: I reviewed the patient's lab results. 06/12/25 13:38 06/12/25 17:23 Labs: Lab Results 06/12/25 06/12/25 06/12/25 Range/Units 13:38 13:57 13:59 WBC 6.2 (4.8-10.8) X10*3/uL RBC 3.66 L (4.20-5.50) X10*6/uL Hgb 10.3 L (12.0-16.0) g/dl Hct 31.7 L (37.0-47.0) % MCV 86.6 (80.0-98.0) fL MCH 28.1 (27.0-33.0) pg MCHC 32.5 (31.0-35.0) g/dl RDW 13.5 (11.0-16.0) % Plt Count 202 (160-400) X10*3/uL MPV 9.8 (9.4-12.3) fL Immature Gran % (Auto) 0.3 (0.0-0.4) % Neut % (Auto) 48.7 (45-73) % Lymph % (Auto) 39.0 (20-40) % [place] % (Auto) 9.8 (2-11) % Eos % (Auto) 2.0 (0-4) % Baso % (Auto) 0.2 (0-2) % Lymph # (Auto) 2.4 (1.2-4.9) X10*3/uL [place] # (Auto) 0.6 (0.1-1.2) X10*3/uL Eos # (Auto) 0.1 (0.0-0.4) X10*3/uL Baso # (Auto) 0.0 (0.0-0.2) X10*3/uL Abs Immat Gran (auto) 0.02 (0.00-0.03) X10*3/uL Absolute Neuts (auto) 3.0 (2.0-8.3) x10*3/uL Absolute Nucleated RBC 0.000 (0.0-0.012) X10*3/uL Nucleated RBC % (auto) 0.0 (0.0-0.2) /100WBC Sodium 129 L (135-145) mmol/L Potassium 4.3 (3.3-5.1) mmol/L Chloride 95 L (96-108) mmol/L Carbon Dioxide 21 L (22-29) mmol/L Anion Gap 17 (12-20) BUN 47 H (9-16) mg/dL Creatinine 1.95 H (0.5-1.4) mg/dL Estim Creat Clear Calc 36.0 Estimated GFR 27 Random Glucose 225 H (60-115) mg/dL Lactic Acid 2.5 H* (0.5-2.0) mmol/L Lactic Acid F/U @ 2Hr (0.5-2.0) mmol/L Calcium 9.8 (8.4-10.2) mg/dL Magnesium 1.8 (1.6-2.6) mg/dL Total Bilirubin 0.2 (0.0-1.0) mg/dL AST 41 H (5-31) U/L ALT 46 H (0-31) U/L Alkaline Phosphatase 172 H (39-117) U/L Total Creatine Kinase 77 (26-140) U/L Troponin I High Sens 8.2 (<3.5-17.0) ng/L Total Protein 8.1 H (6.5-8.0) g/dL Albumin 4.4 (3.5-5.0) g/dL Urine Color Yellow Urine Appearance Clear Urine pH 5.0 (5.0-9.0) Ur Specific Leslie 1.015 (1.005-1.025) Urine Protein Negative (Neg-Trace) mg/dL Urine Glucose (UA) >=1000 H (Negative) mg/dL Urine Ketones Negative (Negative) mg/dL Urine Blood Negative (Negative) Urine Nitrite Negative (Negative) Ur Leukocyte Esterase Negative (Negative) Urine RBC 0-2 (0-2) /HPF Urine WBC 0-5 (0-5) /HPF Ur Squamous Epith Cells 0-2 (0-2) /HPF Urine Bacteria None Seen (None Seen) Hyaline Casts 0-2 (0-2) /LPF Phenytoin 9.7 L (10.0-20.0) ug/mL COVID-19 (ELIZ) Negative (Negative) COVID-19 Clin Com See Note Influenza Type A (BC) Negative (Negative) Influenza Type B (BC) Negative (Negative) Influenza A & B Note See Note 06/12/25 06/12/25 Range/Units 16:28 17:23 WBC (4.8-10.8) X10*3/uL RBC (4.20-5.50) X10*6/uL Hgb (12.0-16.0) g/dl Hct (37.0-47.0) % MCV (80.0-98.0) fL MCH (27.0-33.0) pg MCHC (31.0-35.0) g/dl RDW (11.0-16.0) % Plt Count (160-400) X10*3/uL MPV (9.4-12.3) fL Immature Gran % (Auto) (0.0-0.4) % Neut % (Auto) (45-73) % Lymph % (Auto) (20-40) % [place] % (Auto) (2-11) % Eos % (Auto) (0-4) % Baso % (Auto) (0-2) % Lymph # (Auto) (1.2-4.9) X10*3/uL [place] # (Auto) (0.1-1.2) X10*3/uL Eos # (Auto) (0.0-0.4) X10*3/uL Baso # (Auto) (0.0-0.2) X10*3/uL Abs Immat Gran (auto) (0.00-0.03) X10*3/uL Absolute Neuts (auto) (2.0-8.3) x10*3/uL Absolute Nucleated RBC (0.0-0.012) X10*3/uL Nucleated RBC % (auto) (0.0-0.2) /100WBC Sodium 132 L (135-145) mmol/L Potassium 4.5 (3.3-5.1) mmol/L Chloride 102 (96-108) mmol/L Carbon Dioxide 20 L (22-29) mmol/L Anion Gap 15 (12-20) BUN 44 H (9-16) mg/dL Creatinine 1.62 H (0.5-1.4) mg/dL Estim Creat Clear Calc 43.4 Estimated GFR 33 Random Glucose 207 H (60-115) mg/dL Lactic Acid (0.5-2.0) mmol/L Lactic Acid F/U @ 2Hr 0.9 (0.5-2.0) mmol/L Calcium 8.9 D (8.4-10.2) mg/dL Magnesium (1.6-2.6) mg/dL Total Bilirubin (0.0-1.0) mg/dL AST (5-31) U/L ALT (0-31) U/L Alkaline Phosphatase (39-117) U/L Total Creatine Kinase (26-140) U/L Troponin I High Sens (<3.5-17.0) ng/L Total Protein (6.5-8.0) g/dL Albumin (3.5-5.0) g/dL Urine Color Urine Appearance Urine pH (5.0-9.0) Ur Specific Leslie (1.005-1.025) Urine Protein (Neg-Trace) mg/dL Urine Glucose (UA) (Negative) mg/dL Urine Ketones (Negative) mg/dL Urine Blood (Negative) Urine Nitrite (Negative) Ur Leukocyte Esterase (Negative) Urine RBC (0-2) /HPF Urine WBC (0-5) /HPF Ur Squamous Epith Cells (0-2) /HPF Urine Bacteria (None Seen) Hyaline Casts (0-2) /LPF Phenytoin (10.0-20.0) ug/mL COVID-19 (ELIZ) (Negative) COVID-19 Clin Com Influenza Type A (BC) (Negative) Influenza Type B (BC) (Negative) Influenza A & B Note Independent Interpretation I performed an independent interpretation of an: EKG, Plain X-Ray and CT Scan Interpretation: I independently viewed the EKG which shows normal sinus rhythm with a rate of 78, normal NJ, normal QRS, normal QT I independently viewed the CT scan in the x-ray and agree with the radiology report Radiology Impression Discussion of test interpretation with radiology: I have reviewed the radiologist's reading. Radiologist Impression: [address] [address] [address] Scan Report Signed Patient: Katelyn Peralta MR#: [id number] : 1970 Acct:[id number] Age/Sex: 54 / F ADM Date: 06/12/25 Loc: .ED Attending Dr: Ordering Physician: Sandi Napier Date of Service: 06/12/25 Procedure(s): CT head/brain wo IV con Accession Number(s): [id number] cc: Sandi Napier; Physician,Unknown ~ Report Number: [id number]: Total DLP = 0.00 mGy-cm Reason for Exam: fall, head strike CLINICAL HISTORY: fall, head strike CT head without contrast Comparison: 07/09/2024 Findings: No intracranial mass, midline shift, hydrocephalus, or acute hemorrhage. No CT evidence of acute ischemia. Visualized paranasal sinuses and mastoid air cells normal. Orbits unremarkable. No skull fracture Impression: 1. No acute intracranial abnormalities. This document has been electronically signed by: Florencio Muñiz MD on 06/12/2025 15:14:15 Dictated By: Florencio Muñiz MD [address] [address] [address] Scan Report Signed Patient: Katelyn Peralta MR#: [id number] : 1970 Acct:[id number] Age/Sex: 54 / F ADM Date: 06/12/25 Loc: .ED Attending Dr: Ordering Physician: Sandi Napier Date of Service: 06/12/25 Procedure(s): CT cervical spine wo IV con Accession Number(s): [id number] cc: Sandi Napier; Physician,Unknown ~ Report Number: [id number]: Total DLP = 972.00 mGy-cm Reason for Exam: fall, head strike CLINICAL HISTORY: fall, head strike CT cervical spine without contrast Comparison: 07/09/2024 Findings: Normal limited view of the intracranial contents. Soft tissues of the neck are normal. Lung apices are normal. Normal vertebral body alignment. No fractures or dislocations. Similar mild degenerative disc disease, more significant C5-7.. Impression: 1. No cervical vertebral fracture or traumatic malalignment. This document has been electronically signed by: Florencio Muñiz MD on 06/12/2025 15:10:15 Signed By: <Electronically sign Independent Historian Clinical information obtained from an independent historian. History obtained from or confirmed by: EMS Critical Care Time Critical Care Time Critical Care Time: Yes Total Critical Care Time: 60 Attestation: Time includes: direct patient care, patient reassessment, coordination of patient care, interpretation of data, review of patient's medical records, medical consultation and documentation of patient care. Discharge Plan Discharge Clinical Impression: MARIBEL (acute kidney injury), Acute hyponatremia, Seizure, Avulsed tooth, Laceration of lip Patient Disposition: Admitted As Inpatient Print Language: Zambian
[2025-06-12 13:04] VITALS: BP 154/62; BP 174/74; PULSE 73; PULSE 78; RESP 14; O2SAT 100; O2SAT 96; BMI 26.6
[2025-06-12 13:45] LABS: MANUAL DIFF FLAG NO
[2025-06-12 13:49] LABS: Hematocrit 31.7 % (37.0-47.0); Hemoglobin 10.3 g/dl (12.0-16.0); Imm Gran Abs Auto 0.02 X10*3/uL (0.00-0.03); Imm Gran Pct Auto 0.3 % (0.0-0.4); Lymphocytes Absolute Auto 2.4 X10*3/uL (1.2-4.9); Mean Corpuscular HGB Conc 32.5 g/dl (31.0-35.0); Mean Corpuscular Hemoglobin 28.1 pg (27.0-33.0); Mean Corpuscular Volume 86.6 fL (80.0-98.0); NRBC Abs Auto 0.000 X10*3/uL (0.0-0.012); NRBC Pct Auto 0.0 /100WBC (0.0-0.2); Platelet Count 202 X10*3/uL (160-400); Red Blood Count 3.66 X10*6/uL (4.20-5.50); White Blood Count 6.2 X10*3/uL (4.8-10.8)
--- OUTSIDE RECORDS SUMMARY | 2025-06-12 13:50 | XMS_ITS | Encounter Summary ---
Author Organization [facility] Address [address] [place] [address] Care Team Providers Care Ship Engines Operating Engineer Name Role Phone Roby Roth MD Primary Care Provider [phone] Encounter Details Date Type Department Care Team (Latest Contact Info) Description 04/23/2025 Lab Requisition [facility] - Main Lab [address] [facility] [place] [address] Roby Roth MD [address] [place] [address] [address] [place], [place] 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 edema, unspecified eye (CMS/HCC V24, CMS/LTAC, [facility]IN [facility] V28) Social History Tobacco Use Types Packs/Day [...] without macular edema, unspecified eye (CMS/HCC V24, CMS/[facility]AC, [facility] V28) documented in this encounter Care Teams Ship Engines Operating Engineer Relationship Specialty Start Date End Date Roby Roth MD [address] [place] [address] Dr [address] [place], [place] PCP - General Internal Medicine 09/11/24 documented as of this encounter
--- OUTSIDE RECORDS SUMMARY | 2025-06-12 13:50 | XMS_ITS | Encounter Summary ---
Author Organization [facility] Address [address] [place] [address] Care Team Providers Care Siphon Operator Name Role Phone Roby Roth MD Primary Care Provider [phone] Encounter Details Date Type Department Care Team (Late st Contact Info) Description 05/04/2025 Lab Requisition [facility] - Main Lab [address] [place] [address] Roby Roth MD [address] [place] [address] [address] [place], [place] Other rat exterminator (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 Social History Tobacco Use [...] HORMONE Routine 05/04/2025 6:40 AM EDT Other senior living (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 documented in this encounter Results * Thyroid stimulating hormone (05/04/2025 6:40 AM EDT) TSH 0.40 0.40 - 4.00 mcIU/mL LAB CHEMISTRY METHOD 05/04/2025 9:43 AM EDT [facility] Blood Venous blood specimen / Unknown 05/04/2025 6:40 AM EDT 05/04/2025 7:27 AM EDT us Roby Roth MD LAB BLOOD ORDERABLES Final Resul t [facility] [address] [place] [address], documented in this encounter Visit Diagnoses Diagnosis Other senior living (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 documented in this encounter Care Teams Siphon Operator Relationship Specialty Start Date End Date Roby Roth MD [address] [place] [address] [address] JOSÉ Guerrero PCP - General Internal Medicine 09/11/24 documented as of this encounter
--- OUTSIDE RECORDS SUMMARY | 2025-06-12 13:50 | XMS_ITS | Encounter Summary ---
Author Organization [facility] Address [address] [place] [address] Care Team Providers Care Debug Technician Name Role Phone Roby Roth MD Primary Care Provider [phone] Encounter Details Date Type Department Care Team (Latest Contact Info) Description 12/17/2024 Lab Requisition [facility] - Main Lab 299 [facility] [place] [address] Roby Roth MD [address] [place] [address] Dr [address] [place], [place] 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 edema, unspecified eye (CMS/HCC V24, CMS/[facility] V28) Social History Tobacco Use Types Packs/Day [...] Hold for add-ons. 12/17/2024 9:01 AM EDT [facility] Comment:Auto resulted. Blood Venous blood specimen / Unknown 12/17/2024 6:55 AM EDT 12/17/2024 7:32 AM EDT us Roby Roth MD LAB BLOOD ORDERABLES Final Resul t [facility] [address] [place] [address], [place] [phone] * (ABNORMAL) Complete blood count (12/17/2024 6:55 AM EDT) [facility] WBC 3.9(L) 4.8 - 10.8 K/mcL LAB HEMETOLOGY METHOD 12/17/2024 8:49 AM EDT [facility] RBC 3.70(L) 3.80 - 4.80 M/mcL LAB HEMETOLOGY METHOD 12/17/2024 [facility] Hemoglobin 10.7(L) 11.5 - 16.0 g/dL LAB HEMETOLOGY METHOD 12/17/2024 8:49 AM EDT [facility] Hematocrit 33.6(L) 35.0 - 47.0 % LAB HEMETOLOGY METHOD 12/17/2024 8:49 AM [facility] MCV 90.8 79.0 - 98.0 FL LAB HEMETOLOGY METHOD 12/17/2024 8:49 AM EDT [facility] MCH 28.9 27.0 - 32.0 pcg LAB HEMETOLOGY METHOD 12/17/2024 8:49 AM EDT [facility] MCHC 31.8(L) 32.0 - 37.0 g/dL LAB HEMETOLOGY METHOD 12/17/2024 8:49 [facility] RDW 14.5 11.0 - 15.0 % LAB HEMETOLOGY METHOD 12/17/2024 8:49 [facility] Platelets 213 130 - 400 K/mcL LAB HEMETOLOGY METHOD 12/17/2024 8:49 AM EDT [facility] MPV 10.9 7.0 - 11.0 FL LAB HEMETOLOGY METHOD 12/17/2024 8:49 AM EDT [facility] NRBC 0.0 <1.0 % LAB HEMETOLOGY METHOD 12/17/2024 8:49 AM EDT [facility] NRBC Absolute 0.00 <0.10 K/mcL LAB HEMETOLOGY METHOD 12/17/2024 8:49 AM EDT [facility] Blood Venous blood specimen / Unknown 12/17/2024 6:55 AM EDT 12/17/2024 7:32 AM EDT us Roby Roth MD LAB BLOOD ORDERABLES Final Resul t Performing Organization Address City/[facility]/ZIP Co de Phone Number [facility] [address] [place] [address], [place] [phone] * Vitamin D 25 hydroxy (12/17/2024 6:55 AM EDT) Vit D, 25-Hydroxy 58.7 30.0 - 80.0 ng/mL LAB CHEMISTRY METHOD 12/17/2024 10:53 AM EDT [facility] Blood Venous blood specimen / Unknown 12/17/2024 6:55 AM EDT 12/17/2024 7:32 AM EDT us Roby Roth MD LAB BLOOD ORDERABLES Final Resul t [facility] [address] [place] [address], [place] [phone] * (ABNORMAL) Thyroid stimulating hormone (12/17/2024 6:55 AM EDT) TSH 133.29(H) 0.40 - 4.00 mcIU/mL LAB CHEMISTRY METHOD 12/17/2024 1:07 PM EDT [facility] Comment:Results verified by repeat testing Blood Venous blood specimen / Unknown 12/17/2024 6:55 AM EDT 12/17/2024 7:32 AM EDT us Royb Roth MD LAB BLOOD ORDERABLES Final Resul t Performing Organization Address [facility]/ZIP Co de Phone Number [facility] [address] [place] [address], [place] [phone] * (ABNORMAL) Thyroxine free (12/17/2024 6:55 AM EDT) Free T4 0.39(L) 0.70 - 1.80 ng/dL LAB CHEMISTRY METHOD 12/17/2024 10:54 AM EDT [facility] Blood Venous blood specimen / Unknown 12/17/2024 6:55 AM EDT 12/17/2024 7:32 AM EDT us Roby Roth MD LAB BLOOD ORDERABLES Final Resul t Performing Organization Address [facility] de Phone Number [facility] [address] [place] [address], [place] [phone] * Levetiracetam level (12/17/2024 6:55 AM EDT) [...] developed and the performance characteristics determined by [facility]. This confirmation testing has not been cleared or approved by the FDA. The laboratory is regulated under CLIA as qualified to perform high-complexity testing. This test is used for patient testing purposes. It should not be regarded as investigational or for research. Test performed at [facility], [address], [place] [address] Fatemeh Godfrey MD, PhD - Store Receiving Specialist Blood Venous blood specimen / Unknown 12/17/2024 6:55 AM EDT 12/17/2024 7:32 AM EDT us Roby Roth MD LAB BLOOD ORDERABLES Final Resul t [facility] [address] [place] [address] * (ABNORMAL) Hemoglobin A1c (12/17/2024 6:55 AM EDT) Hemoglobin A1C 8.8(H) <6.5 % LAB CHEMISTRY METHOD 12/17/2024 10:36 AM EDT [facility] Mean Bld Glu Estim. 206 mg/dL LAB CHEMISTRY METHOD 12/17/2024 10:36 AM EDT [facility] Blood Venous blood specimen / Unknown 12/17/2024 6:55 AM EDT 12/17/2024 7:32 AM EDT us Roby Roth MD LAB BLOOD ORDERABLES Final Resul t Performing Organization Address [facility]/ZIP Co de Phone Number [facility] [address] [place] [address], [place] [phone] * (ABNORMAL) Phenytoin level total (12/17/2024 6:55 AM EDT) Phenytoin Level 36.8(HH) 10.0 - 20.0 mcg/mL LAB CHEMISTRY METHOD 12/17/2024 10:06 AM EDT [facility] Comment:Results verified by repeat testing Blood Venous blood specimen / Unknown 12/17/2024 6:55 AM EDT 12/17/2024 7:32 AM EDT us Roby Roth MD LAB BLOOD ORDERABLES Final Resul t [facility] [address] [place] [address], [place] [phone] * Lipid panel with reflex to direct LDL (12/17/2024 6:55 AM EDT) Cholesterol 197 0 - 200 mg/dL LAB CHEMISTRY METHOD 12/17/2024 9:11 AM EDT [facility] Triglycerides 72 0 - 150 mg/dL LAB CHEMISTRY METHOD 12/17/2024 9:11 AM EDT [facility] HDL 103 >=40 mg/dL LAB CHEMISTRY METHOD 12/17/2024 9:11 AM EDT [facility] LDL Calculated 80 0 - 100 mg/dL LAB CHEMISTRY METHOD 12/17/2024 9:11 AM EDT [facility] VLDL Cholesterol Oskar 14.4 mg/dL LAB CHEMISTRY METHOD 12/17/2024 9:11 AM EDT [facility] Non HDL Chol. (LDL+VLDL) 94 <145 mg/dL LAB CHEMISTRY METHOD 12/17/2024 9:11 AM EDT [facility] Chol/HDL Ratio 1.9 0.0 - 4.4 LAB CHEMISTRY METHOD 12/17/2024 9:11 AM T [facility] Blood Venous blood specimen / Unknown 12/17/2024 6:55 AM EDT 12/17/2024 7:32 AM EDT us Roby Roth MD LAB BLOOD ORDERABLES Final Resul t [facility] [address] [place] [address], [place] [phone] * (ABNORMAL) Comprehensive metabolic panel (12/17/2024 6:55 AM EDT) Sodium 133 133 - 145 mmol/L LAB CHEMISTRY METHOD 12/17/2024 9:11 AM [facility] Potassium 4.5 3.5 - 5.5 mmol/L LAB CHEMISTRY METHOD 12/17/2024 9:11 AM [facility] Chloride 100 96 - 110 mmol/L LAB CHEMISTRY METHOD 12/17/2024 9:11 AM [facility] CO2 28 21 - 32 mmol/L LAB CHEMISTRY METHOD 12/17/2024 9:11 AM [facility] Anion Gap 5 3 - 11 LAB CHEMISTRY METHOD 12/17/2024 9:11 AM [facility] Glucose 173(H) 70 - 100 mg/dL LAB CHEMISTRY METHOD 12/17/2024 9:11 AM [facility] BUN 28(H) 5 - 25 mg/dL LAB CHEMISTRY METHOD 12/17/2024 9:11 AM [facility] Creatinine 1.49(H) 0.50 - 1.10 mg/dL LAB CHEMISTRY METHOD 12/17/2024 9:11 AM [facility] eGFR 41(L) >=60 mL/min/1. 73m2 LAB CHEMISTRY METHOD 12/17/2024 9:11 AM [facility] Comment:Calculation based on the Chronic Kidney Disease Epidemiology Collaboration (CKD-EPI) equation refit without adjustment for race. BUN/Creatinine Ratio 18.8 LAB CHEMISTRY METHOD 12/17/2024 9:11 AM [facility] Calcium 9.8 8.5 - 10.5 mg/dL LAB CHEMISTRY METHOD 12/17/2024 9:11 AM [facility] AST (SGOT) 40 10 - 42 unit/L LAB CHEMISTRY METHOD 12/17/2024 9:11 AM [facility] ALT (SGPT) 50 10 - 60 unit/L LAB CHEMISTRY METHOD 12/17/2024 9:11 AM [facility] Alkaline Phosphatase 192(H) 42 - 121 unit/L LAB CHEMISTRY METHOD 12/17/2024 9:11 AM EDT [facility] Total Protein 8.8(H) 6.0 - 8.0 g/dL LAB CHEMISTRY METHOD 12/17/2024 9:11 AM EDT [facility] Albumin 4.4 3.2 - 5.0 g/dL LAB CHEMISTRY METHOD 12/17/2024 9:11 AM EDT [facility] Total Bilirubin 0.2 0.0 - 1.4 mg/dL LAB CHEMISTRY METHOD 12/17/2024 9:11 AM EDT [facility] Blood Venous blood specimen / Unknown 12/17/2024 6:55 AM EDT 12/17/2024 7:32 AM EDT us Roby Roth MD LAB BLOOD ORDERABLES Final Resul t [facility] [address] [place] [address], documented in this encounter Visit Diagnoses Diagnosis 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 edema, unspecified eye (CMS/HCC V24, CMS/HCC V28) documented in this encounter Care Teams Debug Technician Relationship Specialty Start Date End Date Roby Roth MD [address] [place], [place] PCP - General Internal Medicine 09/11/24 documented as of this encounter
--- OUTSIDE RECORDS SUMMARY | 2025-06-12 13:50 | XMS_ITS | Encounter Summary ---
Author Organization [facility] Address [address] [place] [address] Care Team Providers Care Information Technology Security Analyst Name Role Phone Roby Roth MD Primary Care Provider [phone] Encounter Details Date Type Department Care Team (Latest Contact Info) Description 04/25/2025 Lab Requisition [facility] - Main Lab 299 [facility] [place] [address] Roby Roth MD [address] [place] [address] [address] [place], [place] 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 edema, unspecified eye (CMS/[facility] V24, CMS/[facility] V28) Social History Tobacco Use Types [...] without macular edema, unspecified eye (CMS/HCC V24, CMS/[facility] V28) PHENYTOIN LEVEL, TOTAL STAT 04/25/2025 1:15 PM EDT 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 edema, unspecified eye (CMS/HCC V24, CMS/[facility] V28) documented in this encounter Results * Thyroid stimulating hormone (04/25/2025 1:15 PM EDT) TSH 0.47 0.40 - 4.00 mcIU/mL LAB CHEMISTRY METHOD 04/25/2025 3:20 PM EDT [facility] Blood Venous blood specimen / Unknown 04/25/2025 1:15 PM EDT 04/25/2025 2:07 PM EDT Roby Roth MD LAB BLOOD ORDERABLES Final Resul t Performing Organization Address City/[facility]/ZIP Co de Phone Number [facility] [address] [place] [address], [place] [phone] * Phenytoin level total (04/25/2025 1:15 PM EDT) Phenytoin Level 14.1 10.0 - 20.0 mcg/mL LAB CHEMISTRY METHOD 04/25/2025 2:58 PM EDT [facility] Blood Venous blood specimen / Unknown 04/25/2025 1:15 PM EDT 04/25/2025 2:07 PM EDT Roby Roth MD LAB BLOOD ORDERABLES Final Resul t Performing Organization Address [facility]/ZIP Co de Phone Number [facility] [address] [place] [address], [place] [phone] documented in this encounter Visit Diagnoses Diagnosis 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 edema, unspecified eye (CMS/HCC V24, CMS/HCC V28) documented in this encounter Care Teams Information Technology Security Analyst Relationship Specialty Start Date End Date Roby Roth MD [address] [place] [address] Dr Raciel Guerrero ID PCP - General Internal Medicine 09/11/24 documented as of this encounter
--- OUTSIDE RECORDS SUMMARY | 2025-06-12 13:50 | XMS_ITS | Encounter Summary ---
Author Organization [facility] Address [address] [place] [address] Care Team Providers Care Upholstery Bundler Name Role Phone Roby Roth MD Primary Care Provider [phone] Encounter Details Date Type Department Care Team (Late st Contact Info) Description 12/29/2024 Lab Requisition [facility] - Main Lab [address] [place] [address] Roby Roth MD [address] [place] [address] [address] [place], [place] Hypothyroidism, unspecified Social History Tobacco Use [...] LAB CHEMISTRY METHOD 12/29/2024 9:15 AM EDT [facility] ([facility]) [facility] Blood Venous blood specimen / Unknown 12/29/2024 6:40 AM EDT 12/29/2024 7:07 AM EDT us Roby Roth MD LAB BLOOD ORDERABLES Final Resul t Performing Organization Address [facility] Co de Phone Number [facility] [address] [place] [address], [place] [phone] * (ABNORMAL) Phenytoin level total (12/29/2024 6:40 AM EDT) Phenytoin Level 37.4(HH) 10.0 - 20.0 mcg/mL LAB CHEMISTRY METHOD 12/29/2024 8:[address] [facility] Blood Venous blood specimen / Unknown 12/29/2024 6:40 AM EDT 12/29/2024 7:07 AM EDT Roby Roth MD LAB BLOOD ORDERABLES Final Resul t Performing Organization Address [facility] Co de Phone Number [facility] [address] [place] [address], [place] [phone] documented in this encounter Visit Diagnoses Diagnosis Hypothyroidism, unspecified documented in this encounter Care Teams Upholstery Bundler Relationship Specialty Start Date End Date Roby Roth MD [address] [place], [place] PCP - General Internal Medicine 09/11/24 documented as of this encounter
--- OUTSIDE RECORDS SUMMARY | 2025-06-12 13:50 | XMS_ITS | Encounter Summary ---
Author Organization [facility] Address [address] [place] [address] Care Team Providers Care Target Man Name Role Phone Roby Roth MD Primary Care Provider [phone] Encounter Details Date Type Department Care Team (Late st Contact Info) Description 12/24/2024 Lab Requisition [facility] - Main Lab [address] [place] [address] Roby Roth MD [address] [place] [address] [address] [place], [place] Hypothyroidism, unspecified Social History Tobacco Use [...] LAB CHEMISTRY METHOD 12/24/2024 10:24 AM EDT [facility] Blood Venous blood specimen / Unknown 12/24/2024 6:55 AM EDT 12/24/2024 7:29 AM EDT us Roby Roth MD LAB BLOOD ORDERABLES Final Resul t [facility] [address] [place] [address], documented in this encounter Visit Diagnoses Diagnosis Hypothyroidism, unspecified documented in this encounter Care Teams Target Man Relationship Specialty Start Date End Date Roby Roth MD [address] [place] [address] Dr [address] [place], [place] PCP - General Internal Medicine 09/11/24 documented as of this encounter
--- OUTSIDE RECORDS SUMMARY | 2025-06-12 13:50 | XMS_ITS | Encounter Summary ---
Author Organization [facility] Address [address] [place] [address] Care Team Providers Care Engineer Fishing Vessel Name Role Phone Roby Roth MD Primary Care Provider [phone] Encounter Details Date Type Department Care Team (Late st Contact Info) Description 05/02/[address] [facility] - Main Lab [address] [place] [address] Roby Roth MD [address] [place] [address] [address] [place], [place] Traumatic subarachnoid hemorrhage without loss of consciousness, sequela ([facility] V24); Encounter for therapeutic drug level monitoring [...] subarachnoid hemorrhage without loss of consciousness, sequela ([facility] V24) Encounter for therapeutic drug level monitoring PHENYTOIN LEVEL, TOTAL STAT 05/02/2025 12:00 AM EDT Traumatic subarachnoid hemorrhage without loss of consciousness, sequela ([facility] V24) Encounter for therapeutic drug level monitoring documented in this encounter Results * Phenytoin level total (05/02/2025 12:00 AM EDT) Phenytoin Level 10.4 10.0 - 20.0 mcg/mL LAB CHEMISTRY METHOD 05/02/2025 10:42 PM EDT [facility] Blood Venous blood specimen / Unknown 05/02/2025 05/02/2025 10:13 PM EDT us Roby Roth MD LAB BLOOD ORDERABLES Final Resul t Performing Organization Address [facility]/ZIP Co de Phone Number [facility] [address] [place] [address], [place] [phone] * (ABNORMAL) Thyroid stimulating hormone (05/02/2025 12:00 AM EDT) TSH 0.21(L) 0.40 - 4.00 mcIU/mL LAB CHEMISTRY METHOD 05/02/2025 11:03 PM EDT [facility] Blood Venous blood specimen / Unknown 05/02/2025 05/02/2025 10:13 PM EDT us Roby Roth MD LAB BLOOD ORDERABLES Final Resul t Performing Organization Address City/[facility]/ZIP Co de Phone Number [facility] [address] [place] [address], [place] [phone] documented in this encounter Visit Diagnoses Diagnosis Traumatic subarachnoid hemorrhage without loss of consciousness, sequela (CMS/HCC V24) Encounter for therapeutic drug level monitoring documented in this encounter Care Teams Engineer Fishing Vessel Relationship Specialty Start Date End Date Roby Roth MD [address] [place] [address] PCP - General Internal Medicine 09/11/24 documented as of this encounter
--- OUTSIDE RECORDS SUMMARY | 2025-06-12 13:50 | XMS_ITS | Encounter Summary ---
Author Organization [facility] Address [address] [place] [address] Care Team Providers Care Adjunct Philosophy Faculty Name Role Phone Roby Roth MD Primary Care Provider [phone] Encounter Details Date Type Department Care Team (Late st Contact Info) Description 04/30/2025 Lab Requisition [facility] - Main Lab 299 [facility] [place] [address] Roby Roth MD [address] [place] [address] [address] [place] [address] Traumatic subarachnoid hemorrhage without loss of consciousness, [...] V24) documented in this encounter Care Teams Adjunct Philosophy Faculty Relationship Specialty Start Date End Date Roby Roth MD [address] [place] [address] [address] [place], [place] PCP - General Internal Medicine 09/11/24 documented as of this encounter
--- OUTSIDE RECORDS SUMMARY | 2025-06-12 13:51 | XMS_ITS | Encounter Summary ---
Author Organization [facility] Address [address] [place] [address] Care Team Providers Care Locomotive Crane Operator Name Role Phone Roby Roth MD Primary Care Provider [phone] Encounter Details Date Type Department Care Team (Late st Contact Info) Description 01/19/[address] [facility] - Main Lab [address] [facility] [place] [address] Roby Roth MD [address] [place] [address] [address] [place], [place] Epilepsy, unspecified, not intractable, with status epilepticus (CMS/[facility] V24, CMS/[facility] V28) Social History Tobacco Use Types [...] not intractable, with status epilepticus (CMS/HCC V24, CMS/[facility] V28) PHENYTOIN LEVEL, TOTAL Routine 01/19/2025 6:50 AM EDT Epilepsy, unspecified, not intractable, with status epilepticus (CMS/HCC V24, CMS/HCC V28) documented in this encounter Results * SST tube (01/19/2025 6:50 AM EDT) Extra Tube Hold for add-ons. 01/19/2025 9:01 AM EDT [facility] ([facility]) [facility] Comment:Auto resulted. Blood Venous blood specimen / Unknown 01/19/2025 6:50 AM EDT 01/19/2025 7:22 AM EDT us Roby Roth MD LAB BLOOD ORDERABLES Final Resul t Performing Organization Address [facility]/ZIP Co de Phone Number [facility] [address] [place] [address], [place] [phone] * Phenytoin level total (01/19/2025 6:50 AM EDT) Phenytoin Level 14.0 10.0 - 20.0 mcg/mL LAB CHEMISTRY METHOD 01/19/2025 8:10 AM EDT [facility] Blood Venous blood specimen / Unknown 01/19/2025 6:50 AM EDT 01/19/2025 7:22 AM EDT us Roby Roth MD LAB BLOOD ORDERABLES Final Resul t Performing Organization Address [facility]/ZIP Co de Phone Number [facility] [address] [place] [address], [place] [phone] documented in this encounter Visit Diagnoses Diagnosis Epilepsy, unspecified, not intractable, with status epilepticus (CMS/HCC V24, CMS/HCC V28) documented in this encounter Care Teams Locomotive Crane Operator Relationship Specialty Start Date End Date Roby Roth MD [address] [place] [address] [address] [place] [address] [place] PCP - General Internal Medicine 09/11/24 documented as of this encounter
--- OUTSIDE RECORDS SUMMARY | 2025-06-12 13:51 | XMS_ITS | Encounter Summary ---
Author Organization [facility] Address [address] [place] [address] Care Team Providers Care Cross Tie Cutter Name Role Phone Roby Roth MD Primary Care Provider [phone] Encounter Details Date Type Department Care Team (Latest Contact Info) Description 06/10/2025 Lab Requisition [facility] - Main Lab [address] [facility] [place] [address] Roby Roth MD [address] [place] [address] Dr [address] [place], [place] Traumatic subarachnoid hemorrhage without loss of consciousness, sequela (CMS/[facility] V24); Personal history of traumatic brain injury; Hypothyroidism, unspecified; 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 edema, unspecified eye (CMS/HCC V24, CMS/[facility] V28) Social History Tobacco Use Types [...] PANEL WITH REFLEX TO DIRECT LDL Routine 06/10/2025 6:35 AM EDT Traumatic subarachnoid hemorrhage without loss of consciousness, sequela (CMS/HCC V24) Personal history of traumatic brain injury Hypothyroidism, unspecified 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 edema, unspecified eye (CMS/HCC V24, CMS/[facility] V28) HEMOGLOBIN A1C Routine 06/10/2025 6:35 AM EDT Traumatic subarachnoid hemorrhage without loss of consciousness, sequela ([facility] V24) Personal history of traumatic brain injury Hypothyroidism, unspecified 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 edema, unspecified eye (CMS/HCC V24, [facility] V28) PHENYTOIN LEVEL, TOTAL Routine 06/10/2025 6:35 AM EDT Traumatic subarachnoid hemorrhage without loss of consciousness, sequela ([facility] V24) Personal history of traumatic brain injury Hypothyroidism, unspecified 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 edema, unspecified eye ([facility] V24, [facility] V28) COMPREHENSIVE METABOLIC PANEL Routine 06/10/2025 6:35 AM EDT Traumatic subarachnoid hemorrhage without loss of consciousness, sequela ([facility] V24) Personal history of traumatic brain injury Hypothyroidism, unspecified 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 edema, unspecified eye ([facility] V24, [facility] V28) documented in this encounter Results * (ABNORMAL) Hemoglobin A1c (06/10/2025 6:35 AM EDT) Hemoglobin A1C 9.3(H) <6.5 % LAB CHEMISTRY METHOD 06/10/2025 10:58 AM EDT [facility] Mean Bld Glu Estim. 220 mg/dL LAB CHEMISTRY METHOD 06/10/2025 10:58 AM EDT [facility] Blood Venous blood specimen / Unknown 06/10/2025 6:35 AM EDT 06/10/2025 7:22 AM EDT us Roby Roth MD LAB BLOOD ORDERABLES Final Resul t [facility] [address] [place] [address], * Phenytoin level total (06/10/2025 6:35 AM EDT) Pathologist [facility] Phenytoin Level 14.2 10.0 - 20.0 mcg/mL LAB CHEMISTRY METHOD 06/10/2025 8:30 AM EDT [facility] Blood Venous blood specimen / Unknown 06/10/2025 6:35 AM EDT 06/10/2025 7:22 AM EDT us Roby Roth MD LAB BLOOD ORDERABLES Final Resul t [facility] [address] [place] [address], [place] [phone] * Lipid panel with reflex to direct LDL (06/10/2025 6:35 AM EDT) Cholesterol 174 0 - 200 mg/dL LAB CHEMISTRY METHOD 06/10/2025 8:30 AM EDT [facility] Triglycerides 41 0 - 150 mg/dL LAB CHEMISTRY METHOD 06/10/2025 8:30 AM EDT [facility] HDL 100 >=40 mg/dL LAB CHEMISTRY METHOD 06/10/2025 8:30 AM EDT [facility] LDL Calculated 66 0 - 100 mg/dL LAB CHEMISTRY METHOD 06/10/2025 8:30 AM EDT [facility] Comment:Estimated LDL Calcul ated using equation: Total cholesterol - HDL cholesterol - (Triglycerides/5) VLDL Cholesterol Oskar 8.2 mg/dL LAB CHEMISTRY METHOD 06/10/2025 8:30 AM EDT [facility] Non HDL Chol. (LDL+VLDL) 74 <145 mg/dL LAB CHEMISTRY METHOD 06/10/2025 8:30 AM EDT [facility] Chol/HDL Ratio 1.7 0.0 - 4.4 LAB CHEMISTRY METHOD 06/10/2025 8:30 AM EDT [facility] Blood Venous blood specimen / Unknown 06/10/2025 6:35 AM EDT 06/10/2025 7:22 AM EDT us Roby Roth MD LAB BLOOD ORDERABLES Final Resul t [facility] [address] [place] [address], [place] [phone] * (ABNORMAL) Comprehensive metabolic panel (06/10/2025 6:35 AM EDT) Sodium 136 133 - 145 mmol/L LAB CHEMISTRY METHOD 06/10/2025 8:30 AM [facility] Potassium 4.9 3.5 - 5.5 mmol/L LAB CHEMISTRY METHOD 06/10/2025 8:30 AM [facility] Chloride 103 96 - 110 mmol/L LAB CHEMISTRY METHOD 06/10/2025 8:30 AM [facility] CO2 26 21 - 32 mmol/L LAB CHEMISTRY METHOD 06/10/2025 8:30 AM [facility] Anion Gap 7 3 - 11 LAB CHEMISTRY METHOD 06/10/2025 8:30 AM [facility] Glucose 68(L) 70 - 100 mg/dL LAB CHEMISTRY METHOD 06/10/2025 8:30 AM [facility] BUN 37(H) 5 - 25 mg/dL LAB CHEMISTRY METHOD 06/10/2025 8:30 AM [facility] Creatinine 1.26(H) 0.50 - 1.10 mg/dL LAB CHEMISTRY METHOD 06/10/2025 8:30 AM [facility] eGFR 51(L) >=60 mL/min/1. 73m2 LAB CHEMISTRY METHOD 06/10/2025 8:30 AM [facility] Comment:Calculation based on the Chronic Kidney Disease Epidemiology Collaboration (CKD-EPI) equation refit without adjustment for race. BUN/Creatinine Ratio 29.4 LAB CHEMISTRY METHOD 06/10/2025 8:30 AM [facility] Calcium 10.2 8.5 - 10.5 mg/dL LAB CHEMISTRY METHOD 06/10/2025 8:30 AM [facility] AST (SGOT) 25 10 - 42 unit/L LAB CHEMISTRY METHOD 06/10/2025 8:30 AM EDT [facility] ALT (SGPT) 32 10 - 60 unit/L LAB CHEMISTRY METHOD 06/10/2025 8:30 AM EDT [facility] Alkaline Phosphatase 181(H) 42 - 121 unit/L LAB CHEMISTRY METHOD 06/10/2025 8:30 AM EDT [facility] Total Protein 8.2(H) 6.0 - 8.0 g/dL LAB CHEMISTRY METHOD 06/10/2025 8:30 AM EDT [facility] Albumin 3.9 3.2 - 5.0 g/dL LAB CHEMISTRY METHOD 06/10/2025 8:30 AM EDT [facility] Total Bilirubin 0.1 0.0 - 1.4 mg/dL LAB CHEMISTRY METHOD 06/10/2025 8:30 AM EDT [facility] Blood Venous blood specimen / Unknown 06/10/2025 6:35 AM EDT 06/10/2025 7:22 AM EDT us Roby Roth MD LAB BLOOD ORDERABLES Final Resul t [facility] [address] [place] [address], documented in this encounter Visit Diagnoses Diagnosis Traumatic subarachnoid hemorrhage without loss of consciousness, sequela (CMS/HCC V24) Personal history of traumatic brain injury Hypothyroidism, unspecified 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 edema, unspecified eye (CMS/HCC V24, CMS/HCC V28) documented in this encounter Care Teams Cross Tie Cutter Relationship Specialty Start Date End Date Roby Roth MD [address] [place] [address] Dr Schrader [address] [place] [address] PCP - General Internal Medicine 09/11/24 documented as of this encounter
--- OUTSIDE RECORDS SUMMARY | 2025-06-12 13:51 | XMS_ITS | Encounter Summary ---
Author Organization [facility] Address [address] [place] [address] Care Team Providers Care Mail Sorter Name Role Phone Roby Roth MD Primary Care Provider Encounter Details Date Type Department Care Team (Late st Contact Info) Description 02/16/2025 Lab Requisition [facility] - Main Lab [address] [place] [address] Roby Roth MD [address] [place] [address] [address] [place], [place] Hypothyroidism, unspecified Social History Tobacco Use [...] Hold for add-ons. 02/16/2025 8:01 AM EDT [facility] Comment:Auto resulted. Blood Venous blood specimen / Unknown 02/16/2025 6:15 AM EDT 02/16/2025 7:00 AM EDT us Roby Roth MD LAB BLOOD ORDERABLES Final Resul t Performing Organization Address [facility] Co de Phone Number [facility] [address] [place] [address], [place] [phone] * (ABNORMAL) Phenytoin level total (02/16/2025 6:15 AM EDT) Phenytoin Level 3.7(L) 10.0 - 20.0 mcg/mL LAB CHEMISTRY METHOD 02/16/2025 8:01 AM EDT [facility] Blood Venous blood specimen / Unknown 02/16/2025 6:15 AM EDT 02/16/2025 6:59 AM EDT us Roby Roth MD LAB BLOOD ORDERABLES Final Resul t Performing Organization Address [facility] de Phone Number [facility] [address] [place] [address], [place] [phone] * Thyroxine free (02/16/2025 6:15 AM EDT) Free T4 1.27 0.70 - 1.80 ng/dL LAB CHEMISTRY METHOD 02/16/2025 10:34 AM EDT [facility] Blood Venous blood specimen / Unknown 02/16/2025 6:15 AM EDT 02/16/2025 6:59 AM EDT us Roby Roth MD LAB BLOOD ORDERABLES Final Resul t Performing Organization Address [facility]/ZIP Co de Phone Number [facility] [address] [place] [address], [place] [phone] * Thyroid stimulating hormone (02/16/2025 6:15 AM EDT) TSH 0.99 0.40 - 4.00 mcIU/mL LAB CHEMISTRY METHOD 02/16/2025 10:34 AM EDT [facility] Blood Venous blood specimen / Unknown 02/16/2025 6:15 AM EDT 02/16/2025 6:59 AM EDT us Roby Roth MD LAB BLOOD ORDERABLES Final Resul t [facility] [address] [place] [address], documented in this encounter Visit Diagnoses Diagnosis Hypothyroidism, unspecified documented in this encounter Care Teams Mail Sorter Relationship Specialty Start Date End Date Roby Roth MD [address] [place] [address] Dr [address] [place], [place] PCP - General Internal Medicine 09/11/24 documented as of this encounter
--- OUTSIDE RECORDS SUMMARY | 2025-06-12 13:51 | XMS_ITS | Clinical Summary ---
Author Organization [address] Address [address] [place] [address] Phone Care Team Providers Care [employer] Boss Name Role Phone Roby Roth MD Primary Care Provider [phone] Encounters Date Type Department Care Team Description 06/10/2025 Lab Requisition [facility] [address] [place] [address] Roby Roth MD Traumatic subarachnoid hemorrhage without loss of consciousness, sequela ([facility] V24); Personal history of traumatic brain injury; Hypothyroidism, unspecified; 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 edema, unspecified eye (CMS/HCC V24, CMS/HCC V28) 06/09/2025 Lab Requisition [facility] [address] [place] [address] Roby Roth MD 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 edema, unspecified eye (CMS/HCC V24, CMS/HCC V28); Unspecified convulsions (CMS/HCC V24, CMS/HCC V28); Hyperlipidemia, unspecified; Personal history of traumatic brain injury 06/02/2025 Lab Requisition [facility] [address] [place] [address] Roby Roth MD 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 edema, unspecified eye (CMS/HCC V24, CMS/HCC V28); Hyperlipidemia, unspecified; Other puppet maker (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 05/10/2025 Lab Requisition [facility] [address] [place] [address] Roby Roth MD Traumatic subarachnoid hemorrhage without loss of consciousness, sequela (CMS/[facility] V24) 05/04/2025 Lab Requisition [facility] [address] [place] [phone] Roby Roth MD Other correction (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 05/02/2025 Lab Requisition [facility] [address] [place] [phone] Roby Roth MD Traumatic subarachnoid hemorrhage without loss of consciousness, sequela ([facility] V24); Encounter for therapeutic drug level monitoring 04/30/2025 Lab Requisition [facility] [address] [place] [phone] Roby Roth MD Traumatic subarachnoid hemorrhage without loss of consciousness, sequela ([facility] V24) 04/25/2025 Lab Requisition [facility] [address] [place] [phone] Roby Roth MD 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 edema, unspecified eye ([facility] V24, [facility] V28) 04/23/2025 Lab Requisition [facility] [address] [place] [phone] Roby Roth MD 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 edema, unspecified eye ([facility] V24, [facility] V28) 03/23/2025 Lab Requisition [facility] [address] [place] [phone] Roby Roth MD Other correction (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; Altered mental status, unspecified 03/19/2025 Lab Requisition [facility] [address] [place] [phone] Roby Roth MD Unspecified convulsions ([facility] V24, [facility] V28); 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 edema, unspecified eye ([facility] V24, [facility] V28) 03/13/[address] [facility] [address] [facility] [place] [address] Roby Roth MD Unspecified convulsions (CMS/HCC V24, CMS/HCC V28) from Last 3 Months Social History [...] 06/03/2017 Diabetes: Blood Sugar Control Test (HGBA1C) 12/09/2025 06/10/2025, 06/02/2025, 03/19/2025, Additional history exists Diabetes: Annual GFR (Glomerular Filtration Rate) 06/10/2026 06/10/2025, 06/02/2025, 03/19/2025, Additional history exists Hypertension/CHF/CAD Annual BMP Blood Test 06/10/2026 06/10/2025, 06/02/2025, 03/19/2025, Additional history exists Cholesterol Screening (Lipid Panel) 06/10/2030 06/10/2025, 06/02/2025, 12/17/2024 HIB Vaccines Aged Out No [...] Procedure Name Priority Date/Time Associated Diagnosis Comments HEMOGLOBIN A1C Routine 06/10/2025 6:35 AM EDT Traumatic subarachnoid hemorrhage without loss of consciousness, sequela ([facility] V24) Personal history of traumatic brain injury Hypothyroidism, unspecified 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 edema, unspecified eye ([facility] V24, [facility] V28) PHENYTOIN LEVEL, TOTAL Routine 06/10/2025 6:35 AM EDT Traumatic subarachnoid hemorrhage without loss of consciousness, sequela ([facility] V24) Personal history of traumatic brain injury Hypothyroidism, unspecified 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 edema, unspecified eye ([facility] V24, CMS/[facility] V28) LIPID PANEL WITH REFLEX TO DIRECT LDL Routine 06/10/2025 6:35 AM EDT Traumatic subarachnoid hemorrhage without loss of consciousness, sequela ([facility] V24) Personal history of traumatic brain injury Hypothyroidism, unspecified 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 edema, unspecified eye ([facility] V24, CMS/[facility] V28) COMPREHENSIVE METABOLIC PANEL Routine 06/10/2025 6:35 AM EDT Traumatic subarachnoid hemorrhage without loss of consciousness, sequela ([facility] V24) Personal history of traumatic brain injury Hypothyroidism, unspecified 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 edema, unspecified eye (CMS/HCC V24, CMS/HCC V28) PHENYTOIN LEVEL, TOTAL Routine 06/02/2025 7:00 AM EDT 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 edema, unspecified eye (CMS/HCC V24, CMS/HCC V28) Hyperlipidemia, unspecified Other puppet maker (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 HEMOGLOBIN A1C Routine 06/02/2025 7:00 AM EDT 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 edema, unspecified eye (CMS/HCC V24, CMS/HCC V28) Hyperlipidemia, unspecified Other correction (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 LIPID PANEL WITH REFLEX TO DIRECT LDL Routine 06/02/2025 7:00 AM EDT 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 edema, unspecified eye (CMS/HCC V24, CMS/HCC V28) Hyperlipidemia, unspecified Other puppet maker (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 COMPREHENSIVE METABOLIC PANEL Routine 06/02/2025 7:00 AM EDT 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 edema, unspecified eye (CMS/HCC V24, CMS/HCC V28) Hyperlipidemia, unspecified Other correction (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 THYROID STIMULATING HORMONE Routine 05/10/2025 6:00 AM EDT Traumatic subarachnoid hemorrhage without loss of consciousness, sequela (CMS/HCC V24) PHENYTOIN LEVEL, TOTAL Routine 05/10/2025 6:00 AM EDT Traumatic subarachnoid hemorrhage without loss of consciousness, sequela (CMS/HCC V24) THYROID STIMULATING HORMONE Routine 05/04/2025 6:40 AM EDT Other correction (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 PHENYTOIN LEVEL, TOTAL STAT 05/02/2025 12:00 AM EDT Traumatic subarachnoid hemorrhage without loss of consciousness, sequela (CMS/HCC V24) Encounter for therapeutic drug level monitoring THYROID STIMULATING HORMONE STAT 05/02/2025 12:00 AM EDT Traumatic subarachnoid hemorrhage without loss of consciousness, sequela ([facility] V24) Encounter for therapeutic drug level monitoring THYROID STIMULATING HORMONE STAT 04/25/2025 1:15 PM EDT 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 edema, unspecified eye ([facility] V24, [facility] V28) PHENYTOIN LEVEL, TOTAL STAT 04/25/2025 1:15 PM EDT 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 edema, unspecified eye ([facility] V24, [facility] V28) CBC WITH AUTO DIFFERENTIAL Routine 03/23/2025 7:00 AM EDT Other puppet maker (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 Altered mental status, unspecified LEVETIRACETAM LEVEL Routine 03/23/2025 7 :00 AM EDT Other puppet maker (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 Altered mental status, unspecified HALOPERIDOL LEVEL Routine 03/23/2025 7:0 0 AM EDT Other correction (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 Altered mental status, unspecified AMMONIA Routine 03/23/2025 7:00 AM EDT Other puppet maker (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 Altered mental status, unspecified THYROID STIMULATING HORMONE Routine 03/23/2025 7:00 AM EDT Other puppet maker (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 Altered mental status, unspecified PHENYTOIN LEVEL, FREE Routine 03/23/2025 7:00 AM EDT Other puppet maker (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 Altered mental status, unspecified CBC AND DIFFERENTIAL Routine 03/23/2025 7:00 AM EDT Other correction (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 Altered mental status, unspecified [...] EDT Unspecified convulsions (CMS/HCC V24, CMS/HCC V28) from Last 3 Months Results * Lipid panel with reflex to direct LDL (06/10/2025 6:35 AM EDT) Only the most recent of2 resultswithin the time period is included. [facility] Cholesterol 174 0 - 200 mg/dL LAB CHEMISTRY METHOD 06/10/2025 8:[address] [facility] Triglycerides 41 0 - 150 mg/dL LAB CHEMISTRY METHOD 06/10/2025 8:[address] [facility] HDL 100 >=40 mg/dL LAB CHEMISTRY METHOD 06/10/2025 8:[address] [facility] LDL Calculated 66 0 - 100 mg/dL LAB CHEMISTRY METHOD 06/10/2025 8:[address] [facility] Comment:Estimated LDL Calcul ated using equation: Total cholesterol - HDL cholesterol - (Triglycerides/5) VLDL Cholesterol Oskar 8.2 mg/dL LAB CHEMISTRY METHOD 06/10/2025 8:[address] [facility] Non HDL Chol. (LDL+VLDL) 74 <145 mg/dL LAB CHEMISTRY METHOD 06/10/2025 8:[address] [facility] Chol/HDL Ratio 1.7 0.0 - 4.4 LAB CHEMISTRY METHOD 06/10/2025 8:[address] [facility] Blood Venous blood specimen / Unknown 06/10/2025 6:35 AM EDT 06/10/2025 7:22 AM EDT us Roby Roth MD LAB BLOOD ORDERABLES Final Resul t [facility] [address] [place] [address], * (ABNORMAL) Hemoglobin A1c (06/10/2025 6:35 AM EDT) Only the most recent of3 resultswithin the time period is included. Hemoglobin A1C 9.3(H) <6.5 % LAB CHEMISTRY METHOD 06/10/2025 10:[address] [facility] Mean Bld Glu Estim. 220 mg/dL LAB CHEMISTRY METHOD 06/10/2025 10:[address] [facility] Blood Venous blood specimen / Unknown 06/10/2025 6:35 AM EDT 06/10/2025 7:22 AM EDT us Roby Roth MD LAB BLOOD ORDERABLES Final Resul t Performing Organization Address [facility] de Phone Number [facility] [address] [place] [address], [place] [phone] * Phenytoin level total (06/10/2025 6:35 AM EDT) Only the most recent of6 resultswithin the time period is included. Pathologist [facility] Phenytoin Level 14.2 10.0 - 20.0 mcg/mL LAB CHEMISTRY METHOD 06/10/2025 8:[address] [facility] Blood Venous blood specimen / Unknown 06/10/2025 6:35 AM EDT 06/10/2025 7:22 AM EDT us Roby Roth MD LAB BLOOD ORDERABLES Final Resul t Performing Organization Address [facility] de Phone Number [facility] [address] [place] [address], [place] [phone] * (ABNORMAL) Comprehensive metabolic panel (06/10/2025 6:35 AM EDT) Only the most recent of3 resultswithin the time period is included. Sodium 136 133 - 145 mmol/L LAB CHEMISTRY METHOD 06/10/2025 8:[address] [facility] Potassium 4.9 3.5 - 5.5 mmol/L LAB CHEMISTRY METHOD 06/10/2025 8:[address] [facility] Chloride 103 96 - 110 mmol/L LAB CHEMISTRY METHOD 06/10/2025 8:[address] [facility] CO2 26 21 - 32 mmol/L LAB CHEMISTRY METHOD 06/10/2025 8:[address] [facility] Anion Gap 7 3 - 11 LAB CHEMISTRY METHOD 06/10/2025 8:[address] [facility] Glucose 68(L) 70 - 100 mg/dL LAB CHEMISTRY METHOD 06/10/2025 8:[address] [facility] BUN 37(H) 5 - 25 mg/dL LAB CHEMISTRY METHOD 06/10/2025 8:[address] [facility] Creatinine 1.26(H) 0.50 - 1.10 mg/dL LAB CHEMISTRY METHOD 06/10/2025 8:[address] [facility] eGFR 51(L) >=60 mL/min/1. 73m2 LAB CHEMISTRY METHOD 06/10/2025 8:[address] [facility] Comment:Calculation based on the Chronic Kidney Disease Epidemiology Collaboration (CKD-EPI) equation refit without adjustment for race. BUN/Creatinine Ratio 29.4 LAB CHEMISTRY METHOD 06/10/2025 8:[address] [facility] Calcium 10.2 8.5 - 10.5 mg/dL LAB CHEMISTRY METHOD 06/10/2025 8:[address] [facility] AST (SGOT) 25 10 - 42 unit/L LAB CHEMISTRY METHOD 06/10/2025 8:[address] [facility] ALT (SGPT) 32 10 - 60 unit/L LAB CHEMISTRY METHOD 06/10/2025 8:[address] [facility] Alkaline Phosphatase 181(H) 42 - 121 unit/L LAB CHEMISTRY METHOD 06/10/2025 8:[address] [facility] Total Protein 8.2(H) 6.0 - 8.0 g/dL LAB CHEMISTRY METHOD 06/10/2025 8:[address] [facility] Albumin 3.9 3.2 - 5.0 g/dL LAB CHEMISTRY METHOD 06/10/2025 8:[address] [facility] Total Bilirubin 0.1 0.0 - 1.4 mg/dL LAB CHEMISTRY METHOD 06/10/2025 8:[address] [facility] Blood Venous blood specimen / Unknown 06/10/2025 6:35 AM EDT 06/10/2025 7:22 AM EDT us Roby Roth MD LAB BLOOD ORDERABLES Final Resul t Performing Organization Address [facility] Co de Phone Number [facility] [address] [place] [address], [place] [phone] * Thyroid stimulating hormone (05/10/2025 6:00 AM EDT) Only the most recent of6 resultswithin the time period is included. TSH 0.83 0.40 - 4.00 mcIU/mL LAB CHEMISTRY METHOD 05/10/2025 9:[address] [facility] Blood Venous blood specimen / Unknown 05/10/2025 6:00 AM EDT 05/10/2025 6:50 AM EDT us Roby Roth MD LAB BLOOD ORDERABLES Final Resul t Performing Organization Address [facility] de Phone Number [facility] [address] [place] [address], [place] [phone] * (ABNORMAL) CBC auto differential (03/23/2025 7:00 AM EDT) Only the most recent of2 resultswithin the time period is included. WBC 3.6(L) 4.8 - 10.8 K/[facility] LAB HEMETOLOGY METHOD 03/23/2025 8:[address] [facility] RBC 3.60(L) 3.80 - 4.80 M/[facility] LAB HEMETOLOGY METHOD 03/23/2025 8:[address] [facility] Hemoglobin 10.0(L) 11.5 - 16.0 g/dL LAB HEMETOLOGY METHOD 03/23/2025 8:[address] [facility] Hematocrit 31.4(L) 35.0 - 47.0 % LAB HEMETOLOGY METHOD 03/23/2025 8:[address] [facility] MCV 87.5 79.0 - 98.0 FL LAB HEMETOLOGY METHOD 03/23/2025 8:[address] [facility] MCH 27.9 27.0 - 32.0 pcg LAB HEMETOLOGY METHOD 03/23/2025 8:[address] [facility] MCHC 31.8(L) 32.0 - 37.0 g/dL LAB HEMETOLOGY METHOD 03/23/2025 8:[address] [facility] RDW 13.2 11.0 - 15.0 % LAB HEMETOLOGY METHOD 03/23/2025 8:[address] [facility] Platelets 236 130 - 400 K/mcL LAB HEMETOLOGY METHOD 03/23/2025 8:[address] [facility] MPV 10.5 7.0 - 11.0 FL LAB HEMETOLOGY METHOD 03/23/2025 8:[address] [facility] NRBC 0.0 <1.0 % LAB HEMETOLOGY METHOD 03/23/2025 8:[address] [facility] NRBC Absolute 0.00 <0.10 K/mcL LAB HEMETOLOGY METHOD 03/23/2025 8:[address] [facility] Neutrophils Relative 44.4 % LAB HEMETOLOGY METHOD 03/23/2025 8:[address] [facility] Lymphocytes Relative 43.5 % LAB HEMETOLOGY METHOD 03/23/2025 8:[address] [facility] Monocytes Relative 9.3 % LAB HEMETOLOGY METHOD 03/23/2025 8:[address] [facility] Eosinophils Relative 2.2 % LAB HEMETOLOGY METHOD 03/23/2025 8:[address] [facility] Basophils Relative 0.3 % LAB HEMETOLOGY METHOD 03/23/2025 8:[address] [facility] Immature Granulocytes Relative 0.3 % LAB HEMETOLOGY METHOD 03/23/2025 8:[address] [facility] Neutrophils Absolute 1.58 1.50 - 7.00 K/mcL LAB HEMETOLOGY METHOD 03/23/2025 8:[address] [facility] Lymphocytes Absolute 1.55 1.00 - 5.00 K/mcL LAB HEMETOLOGY METHOD 03/23/2025 8:[address] [facility] Monocytes Absolute 0.33 0.20 - 1.00 K/mcL LAB HEMETOLOGY METHOD 03/23/2025 8:[address] [facility] Eosinophils Absolute 0.08 0.00 - 0.50 K/mcL LAB HEMETOLOGY METHOD 03/23/2025 8:[address] [facility] Basophils Absolute 0.01 0.00 - 0.20 K/mcL LAB HEMETOLOGY METHOD 03/23/2025 8:[address] [facility] Immature Granulocytes Absolute 0.01 0.00 - 0.03 K/mcL LAB HEMETOLOGY METHOD 03/23/2025 8:[address] [facility] Blood Venous blood specimen / Unknown 03/23/2025 7:00 AM EDT 03/23/2025 7:43 AM EDT us Roby Roth MD LAB BLOOD ORDERABLES Final Resul t [facility] [address] [place] [address], * (ABNORMAL) Haloperidol level (03/23/2025 7:00 AM EDT) Haloperidol 4(L) 5 - 15 ng/mL 03/31/2025 11:40 PM EDT [facility] Comment: This test was developed and its analytical performance characteristics have been determined by [facility]. It has not been cleared or approved by the FDA. This assay has been validated pursuant to the CLIA regulations and is used for clinical purposes. TEST PERFORMED AT: [facility] [address] [address] EVAN MOSCOSO MD Blood Venous blood specimen / Unknown 03/23/2025 7:00 AM EDT 03/23/2025 7:43 AM EDT us Roby Roth MD LAB BLOOD ORDERABLES Final Resul t Performing Organization Address City/[facility]/ZIP Co de Phone Number [facility] [address] [place] [address] * Levetiracetam level (03/23/2025 7:00 AM EDT) Levetiracetam 36.1 3.0 - 60.0 ug/mL 03/25/2025 5:20 AM EDT [facility] Comment: Steady state trough serum or plasma levels following doses of 1000 to 3000 mg/Day: 3 to 37 ug/mL. The same dosage regimen will typically result in peak levels of 10 to 60 ug/mL, at approximately 1.5 hours post dose. If applicable, any drug confirmation testing reported here was developed and the performance characteristics determined by [facility]. This confirmation testing has not been cleared or approved by the FDA. The laboratory is regulated under CLIA as qualified to perform high-complexity testing. This test is used for patient testing purposes. It should not be regarded as investigational or for research. Test performed at [facility], [address] , [place] [address] Fatemeh Godfrey MD, PhD - Steam Drier Operator Blood Venous blood specimen / Unknown 03/23/2025 7:00 AM EDT 03/23/2025 7:43 AM EDT us Roby Roth MD LAB BLOOD ORDERABLES Final Resul t [facility] [address] [place] [address] * Ammonia (03/23/2025 7:00 AM EDT) Ammonia 23 11 - 35 mcmol/L LAB CHEMISTRY METHOD 03/23/2025 8:[address] [facility] Blood Venous blood specimen / Unknown 03/23/2025 7:00 AM EDT 03/23/2025 7:43 AM EDT us Roby Roth MD LAB BLOOD ORDERABLES Final Resul t [facility] [address] [place] [address], [place] [phone] * (ABNORMAL) Phenytoin level free (03/23/2025 7:00 AM EDT) Phenytoin, Free (Dilantin) <0.8(L) 0.8 - 2.0 ug/mL 03/25/2025 1:11 PM EDT [facility] Comment: Phenytoin free toxic level: >3.0 ug/mL If applicable, any drug confirmation testing reported here was developed and the performance characteristics determined by [facility]. This confirmation testing has not been cleared or approved by the FDA. The laboratory is regulated under CLIA as qualified to perform high-complexity testing. This test is used for patient testing purposes. It should not be regarded as investigational or for research. Test performed at [facility], [address], [place] [address] Fatemeh Godfrey MD, PhD - Steam Drier Operator Blood Venous blood specimen / Unknown 03/23/2025 7:00 AM EDT 03/23/2025 7:43 AM EDT us Roby Roth MD LAB BLOOD ORDERABLES Final Resul t [facility] [address] [place] [address] from Last 3 Months Insurance MEDICAID - [place] Care Teams [employer] Crew Boss Relationship Specialty Start Date End Date Roby Roth MD [address] [place] [address] [place] [address] [place] PCP - General Internal Medicine 09/11/24
--- OUTSIDE RECORDS SUMMARY | 2025-06-12 13:51 | XMS_ITS | Encounter Summary ---
Author Organization [facility] Address [address] [place] [address] Care Team Providers Care Accounting Professional Name Role Phone Roby Roth MD Primary Care Provider Encounter Details Date Type Department Care Team (Late st Contact Info) Description 02/24/[address] [facility] [address] [place] [address] Roby Roth MD [address] [place] [address] [address] [place], [place] Unspecified convulsions (CMS/HCC V24, CMS/HCC V28) [...] LAB CHEMISTRY METHOD 02/24/2025 8:10 AM EDT [facility] Blood Venous blood specimen / Unknown 02/24/2025 5:50 AM EDT 02/24/2025 6:49 AM EDT us Roby Roth MD LAB BLOOD ORDERABLES Final Resul t [facility] [address] [place] [address], documented in this encounter Visit Diagnoses Diagnosis Unspecified convulsions (CMS/HCC V24, CMS/HCC V28) documented in this encounter Care Teams Accounting Professional Relationship Specialty Start Date End Date Roby Roth MD [address] [place] [address] Dr [address] [place], [place] PCP - General Internal Medicine 09/11/24 documented as of this encounter
--- OUTSIDE RECORDS SUMMARY | 2025-06-12 13:51 | XMS_ITS | Encounter Summary ---
Author Organization [facility] Address [address] [place] [address] Care Team Providers Care Varnish Maker Name Role Phone Roby Roth MD Primary Care Provider [phone] Encounter Details Date Type Department Care Team (Late st Contact Info) Description 01/12/2025 Lab Requisition [facility] - Main Lab [address] [place] [address] Roby Roth MD [address] [place] [address] Dr [address] [place], [place] Other seizures (CMS/HCC V24, CMS/HCC V28); [...] LAB CHEMISTRY METHOD 01/14/2025 8:21 PM EDT [facility] Blood Venous blood specimen / Unknown 01/12/2025 01/12/2025 9:23 AM EDT us Roby Roth MD LAB BLOOD ORDERABLES Final Resul t Performing Organization Address City/[facility]/ZIP Co de Phone Number [facility] [address] [place] [address], [place] [phone] * (ABNORMAL) Phenytoin level total (01/12/2025 12:00 AM EDT) Phenytoin Level 28.0(HH) 10.0 - 20.0 mcg/mL LAB CHEMISTRY METHOD 01/12/2025 10:[address] [facility] Blood Venous blood specimen / Unknown 01/12/2025 01/12/2025 9:23 AM EDT us Roby Roth MD LAB BLOOD ORDERABLES Final Resul t Performing Organization Address [facility]/ZIP Co de Phone Number [facility] [address] [place] [address], [place] [phone] documented in this encounter Visit Diagnoses Diagnosis Other seizures (CMS/HCC V24, CMS/HCC V28) Hypothyroidism, unspecified documented in this encounter Care Teams Varnish Maker Relationship Specialty Start Date End Date Roby Roth MD [address] [facility] [address] [place] [address] PCP - General Internal Medicine 09/11/24 documented as of this encounter
--- OUTSIDE RECORDS SUMMARY | 2025-06-12 13:51 | XMS_ITS | Encounter Summary ---
Author Organization [facility] Address [address] [place] [address] Care Team Providers Care Casing Tier Name Role Phone Roby Roth MD Primary Care Provider [phone] Encounter Details Date Type Department Care Team (Late st Contact Info) Description 03/23/2025 Lab Requisition [facility] - Main Lab [address] [facility] [place] [address] Roby Roth MD [address] [place] [address] Dr [address] [place], [place] Other associate trainer (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; Altered mental status, unspecified [...] DIFFERENTIAL Routine 03/23/2025 7:00 AM EDT Other residential (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 Altered mental status, unspecified HALOPERIDOL LEVEL Routine 03/23/2025 7:0 0 AM EDT Other associate trainer (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 Altered mental status, unspecified LEVETIRACETAM LEVEL Routine 03/23/2025 7 :00 AM EDT Other residential (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 Altered mental status, unspecified CBC AND DIFFERENTIAL Routine 03/23/2025 7:00 AM EDT Other associate trainer (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 Altered mental status, unspecified THYROID STIMULATING HORMONE Routine 03/23/2025 7:00 AM EDT Other associate trainer (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 Altered mental status, unspecified AMMONIA Routine 03/23/2025 7:00 AM EDT Other residential (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 Altered mental status, unspecified PHENYTOIN LEVEL, FREE Routine 03/23/2025 7:00 AM EDT Other associate trainer (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 Altered mental status, unspecified documented in this encounter Results * (ABNORMAL) CBC auto differential (03/23/2025 7:00 AM EDT) [facility] WBC 3.6(L) 4.8 - 10.8 K/mcL LAB HEMETOLOGY METHOD 03/23/2025 8:33 AM [facility] RBC 3.60(L) 3.80 - 4.80 M/mcL LAB HEMETOLOGY METHOD 03/23/2025 8:33 AM [facility] Hemoglobin 10.0(L) 11.5 - 16.0 g/dL LAB HEMETOLOGY METHOD 03/23/2025 8:33 AM [facility] Hematocrit 31.4(L) 35.0 - 47.0 % LAB HEMETOLOGY METHOD 03/23/2025 8:33 AM [facility] MCV 87.5 79.0 - 98.0 FL LAB HEMETOLOGY METHOD 03/23/2025 8:33 AM [facility] MCH 27.9 27.0 - 32.0 pcg LAB HEMETOLOGY METHOD 03/23/2025 8:33 AM [facility] MCHC 31.8(L) 32.0 - 37.0 g/dL LAB HEMETOLOGY METHOD 03/23/2025 8:33 AM [facility] RDW 13.2 11.0 - 15.0 % LAB HEMETOLOGY METHOD 03/23/2025 8:33 AM [facility] Platelets 236 130 - 400 K/mcL LAB HEMETOLOGY METHOD 03/23/2025 8:33 AM [facility] MPV 10.5 7.0 - 11.0 FL LAB HEMETOLOGY METHOD 03/23/2025 8:33 AM [facility] NRBC 0.0 <1.0 % LAB HEMETOLOGY METHOD 03/23/2025 8:33 AM [facility] NRBC Absolute 0.00 <0.10 K/mcL LAB HEMETOLOGY METHOD 03/23/2025 8:33 AM [facility] Neutrophils Relative 44.4 % LAB HEMETOLOGY METHOD 03/23/2025 8:33 AM [facility] Lymphocytes Relative 43.5 % LAB HEMETOLOGY METHOD 03/23/2025 8:33 AM [facility] Monocytes Relative 9.3 % LAB HEMETOLOGY METHOD 03/23/2025 8:33 AM [facility] Eosinophils Relative 2.2 % LAB HEMETOLOGY METHOD 03/23/2025 8:33 AM [facility] Basophils Relative 0.3 % LAB HEMETOLOGY METHOD 03/23/2025 8:33 AM [facility] Immature Granulocytes Relative 0.3 % LAB HEMETOLOGY METHOD 03/23/2025 8:33 AM [facility] Neutrophils Absolute 1.58 1.50 - 7.00 K/mcL LAB HEMETOLOGY METHOD 03/23/2025 8:33 AM [facility] Lymphocytes Absolute 1.55 1.00 - 5.00 K/mcL LAB HEMETOLOGY METHOD 03/23/2025 8:33 AM [facility] Monocytes Absolute 0.33 0.20 - 1.00 K/mcL LAB HEMETOLOGY METHOD 03/23/2025 8:33 AM [facility] Eosinophils Absolute 0.08 0.00 - 0.50 K/mcL LAB HEMETOLOGY METHOD 03/23/2025 8:33 AM EDT [facility] Basophils Absolute 0.01 0.00 - 0.20 K/mcL LAB HEMETOLOGY METHOD 03/23/2025 8:33 AM EDT [facility] Immature Granulocytes Absolute 0.01 0.00 - 0.03 K/[facility] LAB HEMETOLOGY METHOD 03/23/2025 8:33 AM EDT [facility] Blood Venous blood specimen / Unknown 03/23/2025 7:00 AM EDT 03/23/2025 7:43 AM EDT Roby Roth MD LAB BLOOD ORDERABLES Final Resul t [facility] [address] [place] [address], * Levetiracetam level (03/23/2025 7:00 AM EDT) Levetiracetam 36.1 3.0 - 60.0 ug/mL 03/25/2025 5:20 AM EDT [facility] Comment: Steady state trough serum or plasma levels following doses of 1000 to 3000 mg/Day: 3 to 37 ug/mL. The same dosage regimen will typically result in peak levels of 10 to 60 ug/mL, at approximately 1.5 hours post dose. If applicable, any drug confirmation testing reported here was developed and the performance characteristics determined by [facility]. This confirmation testing has not been cleared or approved by the FDA. The laboratory is regulated under CLIA as qualified to perform high-complexity testing. This test is used for patient testing purposes. It should not be regarded as investigational or for research. Test performed at [facility], [address] , [place] [address] Fatemeh Godfrey MD, PhD - [employer] Sales Supervisor Blood Venous blood specimen / Unknown 03/23/2025 7:00 AM EDT 03/23/2025 7:43 AM EDT us Roby Roth MD LAB BLOOD ORDERABLES Final Resul t Performing Organization Address City/[facility]/ZIP Co de Phone Number [facility] [address] [place] [address] * (ABNORMAL) Haloperidol level (03/23/2025 7:00 AM EDT) Haloperidol 4(L) 5 - 15 ng/mL 03/31/2025 11:40 PM EDT [facility] Comment: This test was developed and its analytical performance characteristics have been determined by [facility]. It has not been cleared or approved by the FDA. This assay has been validated pursuant to the CLIA regulations and is used for clinical purposes. TEST PERFORMED AT: [facility] [address] [address] EVAN MOSCOSO MD Blood Venous blood specimen / Unknown 03/23/2025 7:00 AM EDT 03/23/2025 7:43 AM EDT us Roby Roth MD LAB BLOOD ORDERABLES Final Resul t Performing Organization Address [facility] Co de Phone Number [facility] [address] [place] [address] * Ammonia (03/23/2025 7:00 AM EDT) Ammonia 23 11 - 35 mcmol/L LAB CHEMISTRY METHOD 03/23/2025 8:41 AM EDT [facility] Blood Venous blood specimen / Unknown 03/23/2025 7:00 AM EDT 03/23/2025 7:43 AM EDT us Roby Roth MD LAB BLOOD ORDERABLES Final Resul t Performing Organization Address City/[facility]/ZIP Co de Phone Number [facility] [address] [place] [address], [place] [phone] * (ABNORMAL) Thyroid stimulating hormone (03/23/2025 7:00 AM EDT) TSH 0.17(L) 0.40 - 4.00 mcIU/mL LAB CHEMISTRY METHOD 03/23/2025 9:50 AM EDT [facility] Blood Venous blood specimen / Unknown 03/23/2025 7:00 AM EDT 03/23/2025 7:43 AM EDT us Roby Roth MD LAB BLOOD ORDERABLES Final Resul t Performing Organization Address [facility] Co de Phone Number [facility] [address] [place] [address], [place] [phone] * (ABNORMAL) Phenytoin level free (03/23/2025 7:00 AM EDT) Phenytoin, Free (Dilantin) <0.8(L) 0.8 - 2.0 ug/mL 03/25/2025 1:11 PM EDT [facility] Comment: Phenytoin free toxic level: >3.0 ug/mL If applicable, any drug confirmation testing reported here was developed and the performance characteristics determined by [facility]. This confirmation testing has not been cleared or approved by the FDA. The laboratory is regulated under CLIA as qualified to perform high-complexity testing. This test is used for patient testing purposes. It should not be regarded as investigational or for research. Test performed at [facility], [address] , [place], [place] [id number] Fatemeh Godfrey MD, PhD - [employer] Sales Supervisor Blood Venous blood specimen / Unknown 03/23/2025 7:00 AM EDT 03/23/2025 7:43 AM EDT us Roby Roth MD LAB BLOOD ORDERABLES Final Resul t Performing Organization Address [facility]/ZIP Co de Phone Number [facility] [address] [place] [address] documented in this encounter Visit Diagnoses Diagnosis Other associate trainer (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 Altered mental status, unspecified documented in this encounter Care Teams Casing Tier Relationship Specialty Start Date End Date Roby Roth MD [address] [place] [address] Dr [address] JOSÉ Guerrero PCP - General Internal Medicine 09/11/24 documented as of this encounter
--- OUTSIDE RECORDS SUMMARY | 2025-06-12 13:51 | XMS_ITS | Clinical Summary ---
Author Organization [facility] Address [address] [place] [address] Phone Care Team Providers Care Analytical Strategist Name Role Phone Roby Roth DO Primary Care Provider [phone] Allergies No known active allergies Medications docusate sodium (COLACE) 100 MG capsule Take 100 mg by mouth 2 (two) times a day. Active ferrous sulfate 325 mg (65 mg [place] iron) tablet Take 325 mg by mouth [...] Insurance [place] Advance Directives For more information, please contact: [phone] (9AM - 5PM [facility], Saturday-Saturday) Healthcare Agents on File Name Relationship Healthcare Agent Relationshi p Communication Guadalupe Peralta Other Other (no proxy form on f ile) Care Teams Analytical Strategist Relationship Specialty Start Date End Date Roby Roth DO [address] [place] [address] PCP - General Internal Medicine 10/28/18 Additional Source Comments The information contained in this document represents components of the legal health record. It is not the complete legal health record.[facility]
--- OUTSIDE RECORDS SUMMARY | 2025-06-12 13:51 | XMS_ITS | Encounter Summary ---
Author Organization [facility] Address [address] [place] [address] Care Team Providers Care Roughener Name Role Phone Roby Roth MD Primary Care Provider [phone] Encounter Details Date Type Department Care Team (Late st Contact Info) Description 05/10/2025 Lab Requisition [facility] - Main Lab [address] [facility] [place] [address] Roby Roth MD [address] [place] [address] [address] [place], [place] Traumatic subarachnoid hemorrhage without loss of [...] LAB CHEMISTRY METHOD 05/10/2025 9:25 AM EDT [facility] Blood Venous blood specimen / Unknown 05/10/2025 6:00 AM EDT 05/10/2025 6:50 AM EDT us Roby Roth MD LAB BLOOD ORDERABLES Final Resul t Performing Organization Address City/[facility]/ZIP Co de Phone Number [facility] [address] [place] [address], [place] [phone] * Phenytoin level total (05/10/2025 6:00 AM EDT) Phenytoin Level 17.1 10.0 - 20.0 mcg/mL LAB CHEMISTRY METHOD 05/10/2025 7:46 AM EDT [facility] Blood Venous blood specimen / Unknown 05/10/2025 6:00 AM EDT 05/10/2025 6:50 AM EDT us Roby Roth MD LAB BLOOD ORDERABLES Final Resul t Performing Organization Address [facility]/ZIP Co de Phone Number [facility] [address] [place] [address], [place] [phone] documented in this encounter Visit Diagnoses Diagnosis Traumatic subarachnoid hemorrhage without loss of consciousness, sequela (CMS/HCC V24) documented in this encounter Care Teams Roughener Relationship Specialty Start Date End Date Roby Roth MD [address] [place] [address] [place] [address] PCP - General Internal Medicine 09/11/24 documented as of this encounter
--- OUTSIDE RECORDS SUMMARY | 2025-06-12 13:51 | XMS_ITS | Encounter Summary ---
Author Organization [facility] Address [address] [place] [address] Care Team Providers Care Podiatry Professor Name Role Phone Roby Roth MD Primary Care Provider [phone] Encounter Details Date Type Department Care Team (Latest Contact Info) Description 06/09/2025 Lab Requisition [facility] - Main Lab [address] [facility] [place] [address] Roby Roth MD [address] [place] [address] [address] [place] [address] 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 edema, unspecified eye (CMS/HCC V24, CMS/HCC V28); Unspecified convulsions (CMS/HCC V24, CMS/HCC V28); Hyperlipidemia, unspecified; Personal history of traumatic brain injury Social History Tobacco Use Types Packs/Day Years [...] edema, unspecified eye (CMS/HCC V24, CMS/HCC V28) Unspecified convulsions (CMS/HCC V24, CMS/HCC V28) Hyperlipidemia, unspecified Personal history of traumatic brain injury documented in this encounter Care Teams Podiatry Professor Relationship Specialty Start Date End Date Roby Roth MD [address] [place] [address] Dr [address] [place], [place] PCP - General Internal Medicine 09/11/24 documented as of this encounter
--- OUTSIDE RECORDS SUMMARY | 2025-06-12 13:51 | XMS_ITS | Encounter Summary ---
Author Organization [facility] Address [address] [place] [address] Care Team Providers Care Umbrella Cutter Name Role Phone Roby oRth MD Primary Care Provider [phone] Encounter Details Date Type Department Care Team (Latest Contact Info) Description 07/06/2024 Lab Requisition [facility] - Main Lab [address] [place] [address] Roby Roth MD [address] [place] [address] [address] [place], [place] Type 2 diabetes mellitus with mild [...] 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 edema, unspecified eye (CMS/[facility]) documented in this encounter Results * Phenytoin level total (07/06/2024 5:45 AM EST) Phenytoin Level 10.1 10.0 - 20.0 mcg/mL LAB CHEMISTRY METHOD 07/06/2024 7:54 AM EST [facility] ([facility]) [facility] Blood Venous blood specimen / Unknown 07/06/2024 5:45 AM EST 07/06/2024 7:19 AM EST Roby Roth MD LAB BLOOD ORDERABLES Final Resul t [facility] ([facility]) [facility] [address] [place] [address], documented in this encounter Visit Diagnoses Diagnosis 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 edema, unspecified eye (CMS/[facility] V24, CMS/[facility] V28) documented in this encounter Care Teams Umbrella Cutter Relationship Specialty Start Date End Date Roby Roth MD [address] [place] [address] [address] [place], [place] PCP - General Internal Medicine 09/11/24 documented as of this encounter
--- OUTSIDE RECORDS SUMMARY | 2025-06-12 13:51 | XMS_ITS | Encounter Summary ---
Author Organization [facility] Address [address] [place] [address] Care Team Providers Care Cancer Researcher Name Role Phone Roby Roth MD Primary Care Provider [phone] Encounter Details Date Type Department Care Team (Late st Contact Info) Description 07/24/2024 Lab Requisition [facility] - Main Lab 299 [facility] [employer] [place] [address] Roby Roth MD [address] [place] [address] Dr [address] [place], [place] Hypothyroidism, unspecified; Unspecified convulsions (CMS/HCC V24, [...] CBC auto differential (07/24/2024 4:55 AM EST) [facility] WBC 8.9 4.8 - 10.8 K/mcL LAB HEMETOLOGY METHOD 07/24/2024 6:27 AM [facility] RBC 3.50(L) 3.80 - 4.80 M/mcL LAB HEMETOLOGY METHOD 07/24/2024 6:27 AM [facility] Hemoglobin 10.0(L) 11.5 - 16.0 g/dL LAB HEMETOLOGY METHOD 07/24/2024 6:27 AM [facility] Hematocrit 31.4(L) 35.0 - 47.0 % LAB HEMETOLOGY METHOD 07/24/2024 6:27 AM [facility] MCV 89.0 79.0 - 98.0 FL LAB HEMETOLOGY METHOD 07/24/2024 6:27 AM [facility] MCH 28.3 27.0 - 32.0 pcg LAB HEMETOLOGY METHOD 07/24/2024 6:27 AM [facility] MCHC 31.8(L) 32.0 - 37.0 g/dL LAB HEMETOLOGY METHOD 07/24/2024 6:27 AM [facility] RDW 13.7 11.0 - 15.0 % LAB HEMETOLOGY METHOD 07/24/2024 6:27 AM [facility] Platelets 243 130 - 400 K/mcL LAB HEMETOLOGY METHOD 07/24/2024 6:27 AM [facility] MPV 10.8 7.0 - 11.0 FL LAB HEMETOLOGY METHOD 07/24/2024 6:27 AM [facility] NRBC 0.0 <1.0 % LAB HEMETOLOGY METHOD 07/24/2024 6:27 AM [facility] NRBC Absolute 0.00 <0.10 K/mcL LAB HEMETOLOGY METHOD 07/24/2024 6:27 AM [facility] Neutrophils Relative 65.4 % LAB HEMETOLOGY METHOD 07/24/2024 6:27 AM [facility] Lymphocytes Relative 27.0 % LAB HEMETOLOGY METHOD 07/24/2024 6:27 AM [facility] Monocytes Relative 7.0 % LAB HEMETOLOGY METHOD 07/24/2024 6:27 AM [facility] Eosinophils Relative 0.2 % LAB HEMETOLOGY METHOD 07/24/2024 6:27 AM [facility] Basophils Relative 0.2 % LAB HEMETOLOGY METHOD 07/24/2024 6:27 AM [facility] Immature Granulocytes Relative 0.2 % LAB HEMETOLOGY METHOD 07/24/2024 6:27 AM [facility] Neutrophils Absolute 5.83 1.50 - 7.00 K/mcL LAB HEMETOLOGY METHOD 07/24/2024 6:27 AM [facility] Lymphocytes Absolute 2.41 1.00 - 5.00 K/mcL LAB HEMETOLOGY METHOD 07/24/2024 6:27 AM [facility] Monocytes Absolute 0.62 0.20 - 1.00 K/mcL LAB HEMETOLOGY METHOD 07/24/2024 6:27 AM [facility] Eosinophils Absolute 0.02 0.00 - 0.50 K/mcL LAB HEMETOLOGY METHOD 07/24/2024 6:27 AM EST [facility] Basophils Absolute 0.02 0.00 - 0.20 K/[facility] LAB HEMETOLOGY METHOD 07/24/2024 6:27 AM EST [facility] Immature Granulocytes Absolute 0.02 0.00 - 0.03 K/[facility] LAB HEMETOLOGY METHOD 07/24/2024 6:27 AM EST [facility] Blood Venous blood specimen / Unknown 07/24/2024 4:55 AM EST 07/24/2024 6:26 AM EST us Roby Roth MD LAB BLOOD ORDERABLES Final Resul t Performing Organization Address City/[facility]/ZIP Co de Phone Number [facility] [address] [place] [address], [place] [phone] * (ABNORMAL) Thyroid stimulating hormone (07/24/2024 4:55 AM EST) TSH 13.12(H) 0.40 - 4.00 mcIU/mL LAB CHEMISTRY METHOD 07/24/2024 7:00 AM EST [facility] Blood Venous blood specimen / Unknown 07/24/2024 4:55 AM EST 07/24/2024 6:26 AM EST us Roby Roth MD LAB BLOOD ORDERABLES Final Resul t [facility] [address] [place] [address], [place] [phone] * (ABNORMAL) Phenytoin level total (07/24/2024 4:55 AM EST) Phenytoin Level 8.3(L) 10.0 - 20.0 mcg/mL LAB CHEMISTRY METHOD 07/24/2024 6:51 AM EST [facility] Blood Venous blood specimen / Unknown 07/24/2024 4:55 AM EST 07/24/2024 6:26 AM EST us Roby Roth MD LAB BLOOD ORDERABLES Final Resul t Performing Organization Address City/[facility]/ZIP Co de Phone Number [facility] [address] [place] [address], * (ABNORMAL) Haloperidol level (07/24/2024 4:55 AM EST) Haloperidol 3(L) 5 - 15 ng/mL 08/05/2024 3:[address] [facility] Comment: This test was developed and its analytical performance characteristics have been determined by [facility]. It has not been cleared or approved by the FDA. This assay has been validated pursuant to the CLIA regulations and is used for clinical purposes. TEST PERFORMED AT: [facility] [address] [address] EVAN MOSCOSO MD Blood Venous blood specimen / Unknown 07/24/2024 4:55 AM EST 07/24/2024 6:26 AM EST us Roby Roth MD LAB BLOOD ORDERABLES Final Resul t Performing Organization Address City/[facility]/ZIP Co de Phone Number [facility] [address] [place] [address] * Levetiracetam level (07/24/2024 4:55 AM EST) Levetiracetam 31.5 3.0 - 60.0 ug/mL 07/27/2024 6:[address] [facility] Comment: Steady state trough serum or plasma levels following doses of 1000 to 3000 mg/Day: 3 to 37 ug/mL. The same dosage regimen will typically result in peak levels of 10 to 60 ug/mL, at approximately 1.5 hours post dose. If applicable, any drug confirmation testing reported here was developed and the performance characteristics determined by [facility]. This confirmation testing has not been cleared or approved by the FDA. The laboratory is regulated under CLIA as qualified to perform high-complexity testing. This test is used for patient testing purposes. It should not be regarded as investigational or for research. Test performed at [facility], [address], [place] [address] Fatemeh Godfrey MD, PhD - Dive Supervisor Blood Venous blood specimen / Unknown 07/24/2024 4:55 AM EST 07/24/2024 6:26 AM EST us Roby Roth MD LAB BLOOD ORDERABLES Final Resul t [facility] [address] [place] [address] * (ABNORMAL) Comprehensive metabolic panel (07/24/2024 4:55 AM EST) Sodium 130(L) 133 - 145 mmol/L LAB CHEMISTRY METHOD 07/24/2024 6:51 AM [facility] Potassium 4.2 3.5 - 5.5 mmol/L LAB CHEMISTRY METHOD 07/24/2024 6:51 AM [facility] Chloride 96 96 - 110 mmol/L LAB CHEMISTRY METHOD 07/24/2024 6:51 AM [facility] CO2 25 21 - 32 mmol/L LAB CHEMISTRY METHOD 07/24/2024 6:51 AM [facility] Anion Gap 9 3 - 11 LAB CHEMISTRY METHOD 07/24/2024 6:51 AM [facility] Glucose 253(H) 70 - 100 mg/dL LAB CHEMISTRY METHOD 07/24/2024 6:51 AM [facility] BUN 41(H) 5 - 25 mg/dL LAB CHEMISTRY METHOD 07/24/2024 6:51 AM [facility] Creatinine 2.14(H) 0.50 - 1.10 mg/dL LAB CHEMISTRY METHOD 07/24/2024 6:51 AM [facility] eGFR 27(L) >=60 mL/min/1. 73m2 LAB CHEMISTRY METHOD 07/24/2024 6:51 AM [facility] Comment:Calculation based on the Chronic Kidney Disease Epidemiology Collaboration (CKD-EPI) equation refit without adjustment for race. BUN/Creatinine Ratio 19.2 LAB CHEMISTRY METHOD 07/24/2024 6:51 AM [facility] Calcium 9.8 8.5 - 10.5 mg/dL LAB CHEMISTRY METHOD 07/24/2024 6:51 AM [facility] AST (SGOT) 18 10 - 42 unit/L LAB CHEMISTRY METHOD 07/24/2024 6:51 AM [facility] ALT (SGPT) 26 10 - 60 unit/L LAB CHEMISTRY METHOD 07/24/2024 6:51 AM [facility] Alkaline Phosphatase 183(H) 42 - 121 unit/L LAB CHEMISTRY METHOD 07/24/2024 6:51 AM [facility] Total Protein 8.1(H) 6.0 - 8.0 g/dL LAB CHEMISTRY METHOD 07/24/2024 6:51 AM [facility] Albumin 4.2 3.2 - 5.0 g/dL LAB CHEMISTRY METHOD 07/24/2024 6:51 AM [facility] Total Bilirubin 0.2 0.0 - 1.4 mg/dL LAB CHEMISTRY METHOD 07/24/2024 6:51 AM [facility] Blood Venous blood specimen / Unknown 07/24/2024 4:55 AM EST 07/24/2024 6:26 AM EST us Roby Roth MD LAB BLOOD ORDERABLES Final Resul t [facility] [address] [place] [address], documented in this encounter Visit Diagnoses Diagnosis Hypothyroidism, unspecified Unspecified convulsions (CMS/HCC V24, CMS/HCC V28) documented in this encounter Care Teams Cancer Researcher Relationship Specialty Start Date End Date Roby Roth MD [address] [place] [address] Dr [address] [facility] [place], [place] PCP - General Internal Medicine 09/11/24 documented as of this encounter
--- OUTSIDE RECORDS SUMMARY | 2025-06-12 13:51 | XMS_ITS | Encounter Summary ---
Author Organization [facility] Address [address] [place] [address] Care Team Providers Care Network Relations Consultant Name Role Phone Roby Roth MD Primary Care Provider [phone] Encounter Details Date Type Department Care Team (Late st Contact Info) Description 09/04/2024 Lab Requisition [facility] - Main Lab [address] [place] [address] Roby Roth MD [address] [place] [address] [address] [place], [place] Traumatic subarachnoid hemorrhage without loss of [...] LAB CHEMISTRY METHOD 09/04/2024 8:14 AM EST [facility] ([facility]) [facility] Blood Venous blood specimen / Unknown 09/04/2024 6:38 AM EST 09/04/2024 7:13 AM EST us Roby Roth MD LAB BLOOD ORDERABLES Final Resul t [facility] LAB [address] [place] [address], documented in this encounter Visit Diagnoses Diagnosis Traumatic subarachnoid hemorrhage without loss of consciousness, sequela (CMS/HCC V24) documented in this encounter Care Teams Network Relations Consultant Relationship Specialty Start Date End Date Roby Roth MD [address] [place] [address] [address] [place], [place] PCP - General Internal Medicine 09/11/24 documented as of this encounter
--- OUTSIDE RECORDS SUMMARY | 2025-06-12 13:51 | XMS_ITS | Clinical Summary ---
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
--- OUTSIDE RECORDS SUMMARY | 2025-06-12 13:51 | XMS_ITS | Encounter Summary ---
Author Organization [facility] Address [address] [place] [address] Care Team Providers Care Bill Checker Name Role Phone Roby Roth MD Primary Care Provider [phone] Encounter Details Date Type Department Care Team (Late st Contact Info) Description 03/05/2025 Lab Requisition [facility] - Main Lab 299 [facility] [place] [address] Roby Roth MD [address] [place] [address] [address] [place], [place] Other medical terminologist (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; Unspecified convulsions (CMS/HCC V24, [...] GOLD Routine 03/05/2025 6:30 AM EDT Other half-way (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 Unspecified convulsions (CMS/HCC V24, CMS/HCC V28) SST - GOLD Routine 03/05/2025 6:30 AM EDT Other medical terminologist (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 Unspecified convulsions (CMS/HCC V24, CMS/HCC V28) PHENYTOIN LEVEL, TOTAL Routine 03/05/2025 6:30 AM EDT Other half-way (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 Unspecified convulsions (CMS/HCC V24, CMS/HCC V28) documented in this encounter Results * (ABNORMAL) Phenytoin level total (03/05/2025 6:30 AM EDT) Phenytoin Level 4.2(L) 10.0 - 20.0 mcg/mL LAB CHEMISTRY METHOD 03/08/2025 8:36 AM EDT [facility] Blood Venous blood specimen / Unknown 03/05/2025 6:30 AM EDT 03/05/2025 7:37 AM EDT us Roby Roth MD LAB BLOOD ORDERABLES Final Resul t Performing Organization Address City/[facility]/ZIP Co de Phone Number [facility] [address] [place] [address], [place] [phone] * SST tube (03/05/2025 6:30 AM EDT) Extra Tube Hold for add-ons. 03/05/2025 9:01 AM EDT [facility] Comment:Auto resulted. Blood Venous blood specimen / Unknown 03/05/2025 6:30 AM EDT 03/05/2025 7:37 AM EDT us Roby Roth MD LAB BLOOD ORDERABLES Final Resul t Performing Organization Address [facility] Co de Phone Number [facility] [address] [place] [address], [place] [phone] * SST tube (03/05/2025 6:30 AM EDT) Extra Tube Hold for add-ons. 03/05/2025 9:01 AM EDT [facility] Comment:Auto resulted. Blood Venous blood specimen / Unknown 03/05/2025 6:30 AM EDT 03/05/2025 7:37 AM EDT us Roby Roth MD LAB BLOOD ORDERABLES Final Resul t Performing Organization Address City/[facility]/ZIP Co de Phone Number [facility] [address] [place] [address], documented in this encounter Visit Diagnoses Diagnosis Other half-way (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 Unspecified convulsions (CMS/HCC V24, CMS/HCC V28) documented in this encounter Care Teams Bill Checker Relationship Specialty Start Date End Date Roby Roth MD [address] [place] [address] [address] [place], [place] PCP - General Internal Medicine 09/11/24 documented as of this encounter
--- OUTSIDE RECORDS SUMMARY | 2025-06-12 13:51 | XMS_ITS | Encounter Summary ---
Author Organization [facility] Address [address] [place] [address] Care Team Providers Care Thinner Sprayer Name Role Phone Roby Roth MD Primary Care Provider Encounter Details Date Type Department Care Team (Late st Contact Info) Description 08/07/[address] [facility] - Main Lab [address] [place] [address] Roby Roth MD [address] [place] [address] [address] [place], [place] Traumatic subarachnoid hemorrhage without loss of [...] LAB CHEMISTRY METHOD 08/07/2024 10:47 AM EST [facility] Blood Venous blood specimen / Unknown 08/07/2024 9:31 AM EST 08/07/2024 10:15 AM EST us Roby Roth MD LAB BLOOD ORDERABLES Final Resul t [facility] LAB [address] [place] [address], documented in this encounter Visit Diagnoses Diagnosis Traumatic subarachnoid hemorrhage without loss of consciousness, sequela (CMS/HCC V24) documented in this encounter Care Teams Thinner Sprayer Relationship Specialty Start Date End Date Roby Roth MD [address] [facility] [address] [place], [place] PCP - General Internal Medicine 09/11/24 documented as of this encounter
--- OUTSIDE RECORDS SUMMARY | 2025-06-12 13:51 | XMS_ITS | Encounter Summary ---
Author Organization [facility] Address [address] [place] [address] Care Team Providers Care Rotary Saw Operator Name Role Phone Roby Roth MD Primary Care Provider [phone] Encounter Details Date Type Department Care Team (Late st Contact Info) Description 08/15/2024 Lab Requisition [facility] - Main Lab [address] [facility] [place] [address] Roby Roth MD [address] [place] [address] [address] [place], [place] Unspecified convulsions (CMS/HCC V24, CMS/HCC V28) [...] LAB CHEMISTRY METHOD 08/15/2024 8:09 AM EST [facility] ([facility]) [facility] Blood Venous blood specimen / Unknown 08/15/2024 6:20 AM EST 08/15/2024 7:49 AM EST us Roby Roth MD LAB BLOOD ORDERABLES Final Resul t [facility] ([facility]) HOSPITAL LAB [address] [place] [address], documented in this encounter Visit Diagnoses Diagnosis Unspecified convulsions (CMS/HCC V24, CMS/HCC V28) documented in this encounter Care Teams Rotary Saw Operator Relationship Specialty Start Date End Date Roby Roth MD [address] [facility] [address] [place], [place] PCP - General Internal Medicine 09/11/24 documented as of this encounter
--- OUTSIDE RECORDS SUMMARY | 2025-06-12 13:51 | XMS_ITS | Encounter Summary ---
Author Organization [facility] Address [address] [place] [address] Care Team Providers Care Yacht Master Name Role Phone Roby Roth MD Primary Care Provider [phone] Encounter Details Date Type Department Care Team (Latest Contact Info) Description 03/19/2025 Lab Requisition [facility] - Main Lab 299 [facility] [place] [address] Roby Roth MD [address] [place] [address] Dr [address] [place], [place] Unspecified convulsions (CMS/HCC V24, CMS/HCC V28); [...] Routine 03/19/2025 6:11 AM EDT Unspecified convulsions ([facility] V24, [facility] V28) 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 edema, unspecified eye ([facility] V24, [facility] V28) HEMOGLOBIN A1C Routine 03/19/2025 6:11 AM EDT Unspecified convulsions ([facility] V24, [facility] V28) 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 edema, unspecified eye ([facility]/HCC V24, [facility] V28) COMPREHENSIVE METABOLIC PANEL Routine 03/19/2025 6:11 AM EDT Unspecified convulsions ([facility] V24, [facility] V28) 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 edema, unspecified eye ([facility] V24, [facility] V28) documented in this encounter Results * (ABNORMAL) CBC auto differential (03/19/2025 6:11 AM EDT) [facility] WBC 6.2 4.8 - 10.8 K/mcL LAB [facility] RBC 3.90 3.80 - 4.80 M/mcL LAB HEMETOLOGY METHOD 03/19/2025 11:[address] [facility] Hemoglobin 11.0(L) 11.5 - 16.0 g/dL LAB HEMETOLOGY METHOD 03/19/2025 11:46 PM T [facility] Hematocrit 36.7 35.0 - 47.0 % LAB HEMETOLOGY METHOD 03/19/2025 11:[address] [facility] MCV 93.4 79.0 - 98.0 FL LAB HEMETOLOGY METHOD 03/19/2025 11:[address] [facility] MCH 28.0 27.0 - 32.0 pcg LAB HEMETOLOGY METHOD 03/19/2025 11:46 PM EDT [facility] MCHC 30.0(L) 32.0 - 37.0 g/dL LAB HEMETOLOGY METHOD 03/19[facility]25 [facility] RDW 14.3 11.0 - 15.0 % LAB HEMETOLOGY METHOD 03/19/2025 11:[address] [facility] Platelets 249 130 - 400 K/mcL LAB HEMETOLOGY METHOD [facility]/19[facility] MPV 11.0 7.0 - 11.0 FL LAB HEMETOLOGY METHOD 03/19/2025 11:[address] [facility] NRBC 0.0 <1.0 % LAB HEMETOLOGY METHOD 03/19/2025 11:[address] [facility] NRBC Absolute 0.00 <0.10 K/mcL LAB HEMETOLOGY METHOD 03/19/2025 11:[address] [facility] Neutrophils Relative 76.5 % LAB HEMETOLOGY METHOD 03/19/2025 11:[address] [facility] Lymphocytes Relative 16.1 % LAB HEMETOLOGY METHOD 03/19/2025 11:[address] [facility] Monocytes Relative 6.9 % LAB HEMETOLOGY METHOD 03/19/2025 11:[address] [facility] Eosinophils Relative 0.0 % LAB HEMETOLOGY METHOD 03/19/2025 11:[address] [facility] Basophils Relative 0.3 % LAB HEMETOLOGY METHOD 03/19/2025 11:[address] [facility] Immature Granulocytes Relative 0.2 % LAB HEMETOLOGY METHOD 03/19/2025 11:[address] [facility] Neutrophils Absolute 4.77 1.50 - 7.00 K/mcL LAB HEMETOLOGY METHOD 03/19/2025 11:46 PM EDT [facility] Lymphocytes Absolute 1.00 1.00 - 5.00 K/mcL LAB HEMETOLOGY METHOD 03/19/2025 11:46 PM EDT [facility] Monocytes Absolute 0.43 0.20 - 1.00 K/mcL LAB HEMETOLOGY METHOD 03/19/2025 11:46 PM EDT [facility] Eosinophils Absolute 0.00 0.00 - 0.50 K/[facility] LAB HEMETOLOGY METHOD 03/19/2025 11:46 PM EDT [facility] Basophils Absolute 0.02 0.00 - 0.20 K/[facility] LAB HEMETOLOGY METHOD 03/19/2025 11:46 PM EDT [facility] Immature Granulocytes Absolute 0.01 0.00 - 0.03 K/[facility] LAB HEMETOLOGY METHOD 03/19/2025 11:46 PM EDT [facility] Blood Venous blood specimen / Unknown 03/19/2025 6:11 AM EDT 03/19/2025 6:36 AM EDT us Roby Roth MD LAB BLOOD ORDERABLES Final Resul t Performing Organization Address City/[facility]/ZIP Co de Phone Number [facility] [address] [place] [address], [place] [phone] * (ABNORMAL) Thyroid stimulating hormone (03/19/2025 6:11 AM EDT) TSH 0.11(L) 0.40 - 4.00 mcIU/mL LAB CHEMISTRY METHOD 03/20/2025 12:01 AM EDT [facility] Blood Venous blood specimen / Unknown 03/19/2025 6:11 AM EDT 03/19/2025 6:36 AM EDT us Roby Roth MD LAB BLOOD ORDERABLES Final Resul t [facility] [address] [place] [address], [place] [phone] * (ABNORMAL) Hemoglobin A1c (03/19/2025 6:11 AM EDT) [facility] Hemoglobin A1C 9.4(H) <6.5 % LAB CHEMISTRY METHOD 03/19/2025 1:44 PM EDT [facility] Mean Bld Glu Estim. 223 mg/dL LAB CHEMISTRY METHOD 03/19/2025 1:44 PM EDT [facility] Blood Venous blood specimen / Unknown 03/19/2025 6:11 AM EDT 03/19/2025 6:36 AM EDT Roby Roth MD LAB BLOOD ORDERABLES Final Resul t [facility] [address] [place] [address], * (ABNORMAL) Comprehensive metabolic panel (03/19/2025 6:11 AM EDT) [facility] Sodium 138 133 - 145 mmol/L LAB CHEMISTRY METHOD 03/19/2025 7:[address] [facility] Potassium 4.8 3.5 - 5.5 mmol/L LAB CHEMISTRY METHOD 03/19/2025 7:[address] [facility] Chloride 102 96 - 110 mmol/L LAB CHEMISTRY METHOD 03/19/2025 7:[address] [facility] CO2 24 21 - 32 mmol/L LAB CHEMISTRY METHOD 03/19/2025 7:[address] [facility] Anion Gap 12(H) 3 - 11 LAB CHEMISTRY METHOD 03/19/2025 7:[address] [facility] Glucose 271(H) 70 - 100 mg/dL LAB CHEMISTRY METHOD 03/19/2025 7:[address] [facility] BUN 26(H) 5 - 25 mg/dL LAB CHEMISTRY METHOD 03/19/2025 7:[address] [facility] Creatinine 1.31(H) 0.50 - 1.10 mg/dL LAB CHEMISTRY METHOD 03/19/2025 7:[address] [facility] eGFR 48(L) >=60 mL/min/1. 73m2 LAB CHEMISTRY METHOD 03/19/2025 7:[address] [facility] Comment:Calculation based on the Chronic Kidney Disease Epidemiology Collaboration (CKD-EPI) equation refit without adjustment for race. BUN/Creatinine Ratio 19.8 LAB CHEMISTRY METHOD 03/19/2025 7:[address] [facility] Calcium 10.7(H) 8.5 - 10.5 mg/dL LAB CHEMISTRY METHOD 03/19/2025 7:[address] [facility] AST (SGOT) 12 10 - 42 unit/L LAB CHEMISTRY METHOD 03/19/2025 7:[address] [facility] ALT (SGPT) 19 10 - 60 unit/L LAB CHEMISTRY METHOD 03/19/2025 7:[address] [facility] Alkaline Phosphatase 194(H) 42 - 121 unit/L LAB CHEMISTRY METHOD 03/19/2025 7:[address] [facility] Total Protein 8.5(H) 6.0 - 8.0 g/dL LAB CHEMISTRY METHOD 03/19/2025 7:[address] [facility] Albumin 4.3 3.2 - 5.0 g/dL LAB CHEMISTRY METHOD 03/19/2025 7:[address] [facility] Total Bilirubin 0.3 0.0 - 1.4 mg/dL LAB CHEMISTRY METHOD 03/19/2025 7:[address] [facility] Blood Venous blood specimen / Unknown 03/19/2025 6:11 AM EDT 03/19/2025 6:36 AM EDT us Roby Roth MD LAB BLOOD ORDERABLES Final Resul t [facility] [address] [place] [address], documented in this encounter Visit Diagnoses Diagnosis Unspecified convulsions ([facility] V24, [facility] V28) 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 edema, unspecified eye ([facility] V24, [facility] V28) documented in this encounter Care Teams Yacht Master Relationship Specialty Start Date End Date Roby Roth MD [address] [place], [place] PCP - General Internal Medicine 09/11/24 documented as of this encounter
--- OUTSIDE RECORDS SUMMARY | 2025-06-12 13:51 | XMS_ITS | Encounter Summary ---
Author Organization [facility] Address [address] [place] [address] Care Team Providers Care Real Estate Economist Name Role Phone Roby Roth MD Primary Care Provider [phone] Encounter Details Date Type Department Care Team (Late st Contact Info) Description 03/13/2025 Lab Requisition [facility] - Main Lab [address] [place] [address] Roby Roth MD [address] [place] [address] Dr [address] [place], [place] Unspecified convulsions (CMS/HCC V24, CMS/HCC V28) [...] LAB CHEMISTRY METHOD 03/13/2025 11:49 AM EDT [facility] Blood Venous blood specimen / Unknown 03/13/2025 10:55 AM EDT 03/13/2025 11:21 AM EDT us Roby Roth MD LAB BLOOD ORDERABLES Final Resul t [facility] [address] [place] [address], documented in this encounter Visit Diagnoses Diagnosis Unspecified convulsions (CMS/HCC V24, CMS/HCC V28) documented in this encounter Care Teams Real Estate Economist Relationship Specialty Start Date End Date Roby Roth MD [address] [place] [address] Dr [address] [place], [place] PCP - General Internal Medicine 09/11/24 documented as of this encounter
--- OUTSIDE RECORDS SUMMARY | 2025-06-12 13:51 | XMS_ITS | Encounter Summary ---
Author Organization [facility] Address [address] [place] [address] Care Team Providers Care Homebirth Midwife Name Role Phone Roby Roth MD Primary Care Provider [phone] Encounter Details Date Type Department Care Team (Latest Contact Info) Description 06/02/2025 Lab Requisition [facility] - Main Lab 299 [facility] [place] [address] Roby Roth MD [address] [place] [address] Dr [address] [place], [place] 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 edema, unspecified eye (CMS/HCC V24, CMS/HCC V28); Hyperlipidemia, unspecified; Other custodial (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 Social History Tobacco Use [...] (CMS/HCC V24, CMS/HCC V28) Hyperlipidemia, unspecified Other procedures tech (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 HEMOGLOBIN A1C Routine 06/02/2025 7:00 AM EDT 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 edema, unspecified eye (CMS/HCC V24, CMS/HCC V28) Hyperlipidemia, unspecified Other custodial (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 PHENYTOIN LEVEL, TOTAL Routine 06/02/2025 7:00 AM EDT 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 edema, unspecified eye ([facility] V24, [facility] V28) Hyperlipidemia, unspecified Other custodial (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 COMPREHENSIVE METABOLIC PANEL Routine 06/02/2025 7:00 AM EDT 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 edema, unspecified eye ([facility] V24, [facility] V28) Hyperlipidemia, unspecified Other procedures tech (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 documented in this encounter Results * Phenytoin level total (06/02/2025 7:00 AM EDT) Phenytoin Level 14.7 10.0 - 20.0 mcg/mL LAB CHEMISTRY METHOD 06/02/2025 8:[address] [facility] Blood Venous blood specimen / Unknown 06/02/2025 7:00 AM EDT 06/02/2025 7:51 AM EDT us Roby Roth MD LAB BLOOD ORDERABLES Final Resul t Performing Organization Address City/[facility]/ZIP Co de Phone Number [facility] [address] [place] [address], [place] [phone] * (ABNORMAL) Hemoglobin A1c (06/02/2025 7:00 AM EDT) Hemoglobin A1C 9.2(H) <6.5 % LAB CHEMISTRY METHOD 06/02/2025 2:[address] [facility] Mean Bld Glu Estim. 217 mg/dL LAB CHEMISTRY METHOD 06/02/2025 2:[address] [facility] Blood Venous blood specimen / Unknown 06/02/2025 7:00 AM EDT 06/02/2025 7:51 AM EDT us Roby Roth MD LAB BLOOD ORDERABLES Final Resul t [facility] [address] [place] [address], [place] [phone] * Lipid panel with reflex to direct LDL (06/02/2025 7:00 AM EDT) Cholesterol 191 0 - 200 mg/dL LAB CHEMISTRY METHOD 06/02/2025 8:[address] [facility] Triglycerides 50 0 - 150 mg/dL LAB CHEMISTRY METHOD 06/02/2025 8:[address] [facility] HDL 110 >=40 mg/dL LAB CHEMISTRY METHOD 06/02/2025 8:[address] [facility] LDL Calculated 71 0 - 100 mg/dL LAB CHEMISTRY METHOD 06/02/2025 8:[address] [facility] Comment:Estimated LDL Calcul ated using equation: Total cholesterol - HDL cholesterol - (Triglycerides/5) VLDL Cholesterol Oskar 10 mg/dL LAB CHEMISTRY METHOD 06/02/2025 8:[address] [facility] Non HDL Chol. (LDL+VLDL) 81 <145 mg/dL LAB CHEMISTRY METHOD 06/02/2025 8:[address] [facility] Chol/HDL Ratio 1.7 0.0 - 4.4 LAB CHEMISTRY METHOD 06/02/2025 8:[address] [facility] Blood Venous blood specimen / Unknown 06/02/2025 7:00 AM EDT 06/02/2025 7:51 AM EDT us Roby Roth MD LAB BLOOD ORDERABLES Final Resul t [facility] [address] [place] [address], [place] [phone] * (ABNORMAL) Comprehensive metabolic panel (06/02/2025 7:00 AM EDT) Sodium 128(L) 133 - 145 mmol/L LAB CHEMISTRY METHOD 06/02/2025 8:25 AM [facility] Potassium 4.2 3.5 - 5.5 mmol/L LAB CHEMISTRY METHOD 06/02/2025 8:25 AM [facility] Chloride 90(L) 96 - 110 mmol/L LAB CHEMISTRY METHOD 06/02/2025 8:25 AM [facility] CO2 27 21 - 32 mmol/L LAB CHEMISTRY METHOD 06/02/2025 8:25 AM [facility] Anion Gap 11 3 - 11 LAB CHEMISTRY METHOD 06/02/2025 8:25 AM [facility] Glucose 192(H) 70 - 100 mg/dL LAB CHEMISTRY METHOD 06/02/2025 8:25 AM [facility] BUN 28(H) 5 - 25 mg/dL LAB CHEMISTRY METHOD 06/02/2025 8:25 AM [facility] Creatinine 1.58(H) 0.50 - 1.10 mg/dL LAB CHEMISTRY METHOD 06/02/2025 8:25 AM [facility] eGFR 39(L) >=60 mL/min/1. 73m2 LAB CHEMISTRY METHOD 06/02/2025 8:25 AM [facility] Comment:Calculation based on the Chronic Kidney Disease Epidemiology Collaboration (CKD-EPI) equation refit without adjustment for race. BUN/Creatinine Ratio 17.7 LAB CHEMISTRY METHOD 06/02/2025 8:25 AM [facility] Calcium 10.2 8.5 - 10.5 mg/dL LAB CHEMISTRY METHOD 06/02/2025 8:25 AM [facility] AST (SGOT) 24 10 - 42 unit/L LAB CHEMISTRY METHOD 06/02/2025 8:25 AM [facility] ALT (SGPT) 36 10 - 60 unit/L LAB CHEMISTRY METHOD 06/02/2025 8:25 AM [facility] Alkaline Phosphatase 201(H) 42 - 121 unit/L LAB CHEMISTRY METHOD 06/02/2025 8:[address] [facility] Total Protein 8.7(H) 6.0 - 8.0 g/dL LAB CHEMISTRY METHOD 06/02/2025 8:[address] [facility] Albumin 4.4 3.2 - 5.0 g/dL LAB CHEMISTRY METHOD 06/02/2025 8:[address] [facility] Total Bilirubin 0.2 0.0 - 1.4 mg/dL LAB CHEMISTRY METHOD 06/02/2025 8:[address] [facility] Blood Venous blood specimen / Unknown 06/02/2025 7:00 AM EDT 06/02/2025 7:51 AM EDT us Roby Roth MD LAB BLOOD ORDERABLES Final Resul t [facility] [address] [place] [address], [place] [phone] documented in this encounter Visit Diagnoses Diagnosis 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 edema, unspecified eye (CMS/HCC V24, CMS/HCC V28) Hyperlipidemia, unspecified Other procedures tech (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 documented in this encounter Care Teams Homebirth Midwife Relationship Specialty Start Date End Date Roby Roth MD [address] [place], [place] PCP - General Internal Medicine 09/11/24 documented as of this encounter
--- OUTSIDE RECORDS SUMMARY | 2025-06-12 13:51 | XMS_ITS | Encounter Summary ---
Author Organization [facility] Address [address] [place] [address] Care Team Providers Care See Supervisor Name Role Phone Roby Roth MD Primary Care Provider [phone] Encounter Details Date Type Department Care Team (Late st Contact Info) Description 01/05/[address] [facility] - Main Lab [address] [facility] [place] [address] Roby Roth MD [address] [place] [address] Dr [address] [place], [place] Epilepsy, unspecified, not intractable, with status [...] LAB CHEMISTRY METHOD 01/05/2025 9:18 AM EDT [facility] Blood Venous blood specimen / Unknown 01/05/2025 7:05 AM EDT 01/05/2025 7:32 AM EDT us Roby Roth MD LAB BLOOD ORDERABLES Final Resul t [facility] ([facility]) [facility] [address] [place] [address], documented in this encounter Visit Diagnoses Diagnosis Epilepsy, unspecified, not intractable, with status epilepticus (CMS/HCC V24, CMS/HCC V28) Conversion disorder with seizures or convulsions documented in this encounter Care Teams See Supervisor Relationship Specialty Start Date End Date Roby Roth MD [address] [place] [address] Dr [address] [place], [place] PCP - General Internal Medicine 09/11/24 documented as of this encounter
[2025-06-12 14:05] LABS: COVID-19 Test Negative (Negative); IDNOW Serial# 55D5AD1C; IDNOW Serial# 58CA691E; Influenza B2 Negative (Negative)
[2025-06-12 14:07] LABS: Appearance Urine Clear; Glucose Urine UA >=1000 mg/dL (Negative); PH 5.0 (5.0-9.0); Specific Gravity - Urine 1.015 (1.005-1.025); UMIC TRIGGER UACC YES
[2025-06-12 14:09] LABS: Alanine Aminotransferase 46 U/L (0-31); Albumin Level 4.4 g/dL (3.5-5.0); Alkaline Phosphatase 172 U/L (39-117); Anion Gap 17 (12-20); Aspartate Amino Transferase 41 U/L (5-31); Blood Urea Nitrogen 47 mg/dL (9-16); Calcium 9.8 mg/dL (8.4-10.2); Carbon Dioxide 21 mmol/L (22-29); Chloride 95 mmol/L (96-108); Creatinine Clr Calc Pharmacy 36.0; Estimated Glomerular Filt Rate 27; Magnesium 1.8 mg/dL (1.6-2.6); Potassium 4.3 mmol/L (3.3-5.1); Sodium 129 mmol/L (135-145); Total Protein 8.1 g/dL (6.5-8.0)
[2025-06-12 14:17] LABS: Troponin-I High Sensitivity 8.2 ng/L (<3.5-17.0)
[2025-06-12 14:19] VITALS: BP 154/62; PULSE 78; RESP 14; O2SAT 96
[2025-06-12 15:43] LABS: Reflex Lactate? Lactic Acid Added
[2025-06-12 16:47] VITALS: BP 110/54; PULSE 60; RESP 12; TEMP 36.3; O2SAT 98
[2025-06-12 17:07] LABS: ~Lactic Acid-LAB USE ONLY 0.9 mmol/L (0.5-2.0)
[2025-06-12 17:40] LABS: Anion Gap 15 (12-20); Blood Urea Nitrogen 44 mg/dL (9-16); Carbon Dioxide 20 mmol/L (22-29); Chloride 102 mmol/L (96-108); Creatinine Clr Calc Pharmacy 43.4; Estimated Glomerular Filt Rate 33; Potassium 4.5 mmol/L (3.3-5.1); Sodium 132 mmol/L (135-145)
[2025-06-12 17:51] LABS: Calcium 8.9 mg/dL (8.4-10.2)
[2025-06-12] MEDS: levETIRAcetam in NaCl (iso-os) 1,000 MG/100 ML PIGGYBACK 400 MG IV (18:38)
[2025-06-12 18:46] VITALS: BP 129/71; PULSE 58; RESP 10; O2SAT 100
--- NOTE | 2025-06-12 19:20 | PHA.MEDREC ---
Pharmacy Consult ? Medication Reconciliation Pharmacy has completed the medication reconciliation, utilized list from [facility].
--- NOTE | 2025-06-12 19:33 | PC.NURSE ---
this RN assumed care of this pt @1900, pt noted to be laying semi fowlers in the hospital stretcher connected to the secured entrance monitor, HR 64, RR 13, pt responding to verbal stimuli, call light within reach for safety
[2025-06-12 20:17] VITALS: BP 133/73; PULSE 62; RESP 10; TEMP 35
--- NOTE | 2025-06-12 20:20 | PC.NURSE ---
pt noted to have an oral temporal temperature of 95, rectal temp obtained to be 94.7, provider Steve Salinas made aware, order for chioma hugger placed at this time, pt connected to chioma hugger blanket, all other VSS
--- NOTE | 2025-06-12 20:59 | PM.IMHP ---
History of Present Illness Date of Service: 06/12/25 Attending physician on admission: William Joe Chief Complaint: ?seizure, fall Patient is a 54-year-old female with a past medical history significant for TBI, dementia, seizure disorder, SAH, anxiety, mood disorder, diabetes, hypertension, hyperlipidemia, hypothyroid and history of ESBL UTI, who presented to the ED from [facility] due to a fall versus seizure. The fall was unwitnessed however there was a suspected head strike. The patient was found unresponsive. When the patient arrived to the ED she was sleeping however arousable to verbal stimuli. She has a laceration of the lip and a tooth avulsion. Labs were significant for mild MARIBEL, hypochloremia and hyponatremia. She received 1 L of normal saline with improvement from 129-132. She also has acute lactic acidosis, likely from seizure rather than infection. Dilantin level mildly low and Keppra level pending. The patient is now more alert, complaining of mouth pain. Unable to provide much history, does not recall events prior to fall. slow to respond. Recent vital check her temperature was 95 degrees temporarily, 94.[address] ordered. Patient started empirically on ceftriaxone and Flagyl. Review of Systems Constitutional: Constitutional: Denies body ache(s), Denies chills, Denies fatigue, Denies fever(s) and Denies headache(s) Eyes: Eyes: Denies change in vision ENT: Denies headache(s), Reports mouth pain, Denies nasal congestion and Denies sore throat Cardiovascular: Cardiovascular: Denies chest pain, Denies rapid heart rate, Denies leg edema, Denies lightheadedness and Denies dyspnea Respiratory: Respiratory: Denies chest congestion, Denies cough, Denies dyspnea and Denies wheezing Gastrointestinal: Gastrointestinal: Denies abdominal pain, Denies nausea and Denies vomiting Genitourinary: Genitourinary: Denies difficulty voiding, Denies dysuria and Denies urinary urgency Musculoskeletal: Musculoskeletal: Denies back pain and Denies myalgias Integumentary/Breasts: Skin/Breast: Denies rash Neurologic: Denies confusion and Denies headache(s) Psychiatric: Psychiatric: Denies confusion Endocrine: Endocrine: Denies fatigue Hematologic/Lymphatic: Hematologic/Lymphatic: Denies easy bleeding and Denies easy bruising Allergic/Immunologic: Allergic/Immunologic: Denies wheezing [facility] Medical History (Updated 06/12/25 @ 22:59 by Adilene Salinas PA-C) Adjustment reaction with mixed disturbance of emotions and conduct Anxiety Mood disorder Leiomyoma of body of uterus Preglaucoma Presbyopia UTI (urinary tract infection) Hypothermia Long QT syndrome Sepsis COVID-19 Cystitis Hyperkalemia ESBL (extended spectrum beta-lactamase) producing bacteria infection Essential (primary) hypertension Diabetic retinopathy Anxiety Mood disorder Dementia Subarachnoid hemorrhage following injury TBI (traumatic brain injury) Unspecified dementia with behavioral disturbance Seizure disorder Hypothyroid Hyperlipidemia Diabetes Family History Mother Breast cancer Surgical History Hx of tubal ligation Social History Household Members: Other Housing: [facility] Do you presently have visiting nurse or other home services: No Alcohol intake: never Patient Tobacco Use Status: Never used Tobacco Smoked in Last 30 Days: No Use of substances other than those prescribed or required for medical reasons: No Advance Directives: Yes Advance Directives on File: Yes Advance Directives Date on File: 03/23/21 Patient : No service: No Current occupational status: disabled Meds Allergies Allergy/AdvReac Type Severity Reaction Status Date / Time chlorpromazine Allergy Intermediate HIVES Verified 06/12/25 13:06 (CHLORPROMAZINE) Active Medications: Current Medications Acetaminophen (Acetaminophen 325 Mg Tablet) 650 mg PO Q6H PRN PRN Reason: Pain, Mild 1-3,fever,headache Calcium Carbonate (Calcium Carbonate 750 Mg Tab.Chew) 750 mg PO Q4H PRN PRN Reason: Heartburn Dextrose (Dextrose 50 % 25 Gm/50 Ml Syringe) 25 gm IVPUSH Q15M PRN; Protocol PRN Reason: per Hypoglycemia Standing Ord. Glucose (Glucose Gel 15 Gm Gel..Gram.) 15 gm PO Q15M PRN; Protocol PRN Reason: per Hypoglycemia Standing Ord. Ceftriaxone Sodium 1 gm/ (Sodium Chloride) 50 mls @ 100 mls/hr IV Q24H TOM Metronidazole (Flagyl) 500 mg in 100 mls @ 100 mls/hr IV Q8H TOM Lactated Ringer's (Lr) 1,000 mls @ 75 mls/hr IVCONT .[id number] ON LICENSE OF [facility] Insulin Human Lispro (Insulin Lispro 100 Unit/Ml 3 Ml Vial) 0 unit SUBCUT Q6H ON LICENSE OF [facility]; Protocol Magnesium Hydroxide (Milk Of Magnesia 30 Ml Oral.Susp) 30 ml PO DAILY PRN PRN Reason: Constipation Melatonin (Melatonin 3 Mg Tablet) 6 mg PO BEDTIME PRN PRN Reason: Insomnia Ondansetron HCl (Ondansetron Hcl 4 Mg/2 Ml Vial) 4 mg IVPUSH Q8H PRN PRN Reason: Nausea and Vomiting Oxycodone HCl (Oxycodone Hcl Immed Release 5 Mg Tablet) 5 mg PO Q6H PRN PRN Reason: Pain, Severe (Pain Scale 7-10) Sodium Chloride (0.9 % Sodium Chloride Flush 3 Ml Syringe) 3 ml IVFLUSH QSHIFT ON LICENSE OF [facility] Home Medications ?Medication ?Instructions ?Recorded ?Confirmed ?Last Taken ?Type acetaminophen 325 mg tablet 650 mg PO Q12H PRN Fever Or Pain 10/29/22 06/12/25 Unknown History atorvastatin 10 mg tablet 10 mg PO BEDTIME 10/29/22 06/12/25 Unknown History benztropine 1 mg tablet 1 mg PO BID 10/29/22 06/12/25 Unknown History calcium 600 mg (as 1 tab PO BID 10/29/22 06/12/25 Unknown History carbonate)-vitamin D3 10 mcg (400 unit) tablet (Calcium 600 + D(3)) cholecalciferol (vitamin D3) 1,250 1,250 mcg PO MO@0900 10/29/22 06/12/25 Unknown History mcg (50,000 unit) capsule docusate sodium 100 mg capsule 100 mg PO BID 10/29/22 06/12/25 Unknown History ferrous sulfate 324 mg (65 mg 324 mg PO DAILY 10/29/22 06/12/25 Unknown History iron) tablet,delayed release gabapentin 600 mg tablet 600 mg PO TID 10/29/22 06/12/25 Unknown History guaifenesin 100 mg/5 mL oral liquid 200 mg PO Q4H PRN Cough 10/29/22 06/12/25 Unknown History haloperidol 10 mg tablet 10 mg PO BID 10/29/22 06/12/25 Unknown History haloperidol 5 mg tablet 5 mg PO BID 10/29/22 06/12/25 Unknown History hydroxyzine HCl 25 mg tablet 25 mg PO BID 10/29/22 06/12/25 Unknown History ibuprofen 600 mg tablet 600 mg PO Q8H PRN Moderate Pain 10/29/22 06/12/25 Unknown History (Scale Score 5-6) insulin aspart U-100 100 unit/mL 1 sliding scale dose subcut 10/29/22 06/12/25 Unknown History subcutaneous solution (Novolog USEASDIRECTD U-100 Insulin aspart) levetiracetam 1,000 mg tablet 1,000 mg PO BID 10/29/22 06/12/25 Unknown History metformin 1,000 mg tablet 1,000 mg PO BID 10/29/22 06/12/25 Unknown History oxcarbazepine 150 mg tablet 150 mg PO DAILY 10/29/22 06/12/25 Unknown History (Trileptal) oxcarbazepine 300 mg tablet 300 mg PO BEDTIME 10/29/22 06/12/25 Unknown History (Trileptal) sennosides 8.6 mg tablet (senna) 8.6 mg PO DAILY PRN Constipation 10/29/22 06/12/25 Unknown History sodium phosphates 19 gram-7 118 ml RI DAILY PRN Constipation, 10/29/22 06/12/25 Unknown History gram/118 mL enema (Fleet Enema) if bisacodyl ineffective cranberry fruit 450 mg tablet 450 mg PO DAILY 08/22/23 06/12/25 Unknown History (cranberry) insulin glargine 100 unit/mL (3 12 unit subcut BEDTIME 08/22/23 06/12/25 Unknown History mL) subcutaneous pen (Lantus Solostar U-100 Insulin) phenytoin 50 mg chewable tablet 100 mg PO DAILY 08/22/23 06/12/25 Unknown History ascorbic acid (vitamin C) 500 mg 500 mg PO DAILY 06/12/25 06/12/25 Unknown History tablet benztropine 0.5 mg tablet 0.5 mg PO BID 06/12/25 06/12/25 Unknown History empagliflozin 25 mg tablet 25 mg PO DAILY 06/12/25 06/12/25 Unknown History (Jardiance) glucagon HCl 1 mg solution for 1 mg subcut Q15M PRN target blood 06/12/25 06/12/25 Unknown History injection sugar attained levothyroxine 75 mcg tablet 75 mcg PO DAILY@0600 06/12/25 06/12/25 Unknown History multivitamin 1 tab PO DAILY 06/12/25 06/12/25 Unknown History naloxone 4 mg/actuation nasal 4 mg intranasal Q3M PRN suspected 06/12/25 06/12/25 Unknown History spray (Narcan) opioid overdose oxycodone-acetaminophen 5 mg-325 1 tab PO Q6H PRN moderate knee pain 06/12/25 06/12/25 Unknown History mg tablet (Percocet) phenytoin 50 mg chewable tablet 150 mg PO BEDTIME 06/12/25 06/12/25 Unknown History sennosides 8.6 mg tablet 8.6 mg PO BID 06/12/25 06/12/25 Unknown History tramadol 50 mg tablet 50 mg PO TID 06/12/25 06/12/25 Unknown History Physical Exam Vital Signs and Narrative: Vital Signs: Last Vital Signs Temp 95.0 F L 06/12/25 20:17 Pulse 62 06/12/25 20:17 Resp 10 L 06/12/25 20:17 BP 133/73 06/12/25 20:17 Pulse Ox 100 06/12/25 18:46 O2 Del Method Room Air 06/12/25 18:46 BMI result Body Mass Index 26.6 General: Alert and oriented to person only, no acute distress Resp: CTA bilaterally CVS: S1, S2, RRR GI: +BS, NT, no distention Skin: Warm, dry Neuro: Cranial nerves II-XII grossly intact bilaterally. Motor grossly intact bilaterally Extremities: No pitting edema Psych: slow to respond Const: General: No confusion Orientation/consciousness: No confusion Neuro: General: No confusion Results Labs 06/12/25 13:38 06/12/25 17:23 Labs: Laboratory Results - last 24 hr 06/12/25 06/12/25 06/12/25 13:38 13:57 13:59 MCV 86.6 MCH 28.1 MCHC 32.5 RDW 13.5 Plt Count 202 MPV 9.8 Immature Gran % (Auto) 0.3 Neut % (Auto) 48.7 Lymph % (Auto) 39.0 Pershing % (Auto) 9.8 Eos % (Auto) 2.0 Baso % (Auto) 0.2 Lymph # (Auto) 2.4 Pershing # (Auto) 0.6 Eos # (Auto) 0.1 Baso # (Auto) 0.0 Abs Immat Gran (auto) 0.02 Absolute Neuts (auto) 3.0 Absolute Nucleated RBC 0.000 Nucleated RBC % (auto) 0.0 Anion Gap 17 Estim Creat Clear Calc 36.0 Estimated GFR 27 Random Glucose 225 H Lactic Acid 2.5 H* Lactic Acid F/U @ 2Hr Calcium 9.8 Magnesium 1.8 Total Bilirubin 0.2 AST 41 H ALT 46 H Alkaline Phosphatase 172 H Total Creatine Kinase 77 Troponin I High Sens 8.2 Total Protein 8.1 H Albumin 4.4 Urine Color Yellow Urine Appearance Clear Urine pH 5.0 Ur Specific [place] 1.015 Urine Protein Negative Urine Glucose (UA) >=1000 H Urine Ketones Negative Urine Blood Negative Urine Nitrite Negative Ur Leukocyte Esterase Negative Urine RBC 0-2 Urine WBC 0-5 Ur Squamous Epith Cells 0-2 Urine Bacteria None Seen Hyaline Casts 0-2 Phenytoin 9.7 L COVID-19 (ELIZ) Negative COVID-19 Clin Com See Note Influenza Type A (BC) Negative Influenza Type B (BC) Negative Influenza A & B Note See Note 06/12/25 06/12/25 16:28 17:23 MCV MCH MCHC RDW Plt Count MPV Immature Gran % (Auto) Neut % (Auto) Lymph % (Auto) Pershing % (Auto) Eos % (Auto) Baso % (Auto) Lymph # (Auto) Pershing # (Auto) Eos # (Auto) Baso # (Auto) Abs Immat Gran (auto) Absolute Neuts (auto) Absolute Nucleated RBC Nucleated RBC % (auto) Anion Gap 15 Estim Creat Clear Calc 43.4 Estimated GFR 33 Random Glucose 207 H Lactic Acid Lactic Acid F/U @ 2Hr 0.9 Calcium 8.9 D Magnesium Total Bilirubin AST ALT Alkaline Phosphatase Total Creatine Kinase Troponin I High Sens Total Protein Albumin Urine Color Urine Appearance Urine pH Ur Specific [place] Urine Protein Urine Glucose (UA) Urine Ketones Urine Blood Urine Nitrite Ur Leukocyte Esterase Urine RBC Urine WBC Ur Squamous Epith Cells Urine Bacteria Hyaline Casts Phenytoin COVID-19 (ELIZ) COVID-19 Clin Com Influenza Type A (BC) Influenza Type B (BC) Influenza A & B Note Assessment and Plan (1) Seizure: Status: Acute (2) Laceration of lip: Status: Acute (3) Avulsed tooth: Status: Acute (4) MARIBEL (acute kidney injury): Status: Acute (5) Acute hyponatremia: Status: Acute (6) Elevated LFTs: Status: Acute (7) Hypothermia: Status: Acute Plan Patient is a 54-year-old female with a past medical history significant for TBI, dementia, seizure disorder, SAH, anxiety, mood disorder, diabetes, hypertension, hyperlipidemia, hypothyroid and history of ESBL UTI, who presented to the ED from [facility] due to a fall versus seizure. Initially unresponsive, now A+O, hypothermic. admit for observation due to possible seizure and further w/u for hypothermia. breakthrough seizure vs fall - passed bedside swallow, if passes, clear liquid diet - continue dilantin, keppra, trileptal, gabapentin - EEG - neuro consult - aspiration precautions hypochloremic hyponatremia with metabolic acidosis - IVF - monitor BMP acute lactic acidosis, likely secondary to seizure, resolved hypothermia, infection vs post seizure - chioma hugger - A/P CT - empiric ceftriaxone and flagyl - IVF MARIBEL - IVF - avoid nephrotoxins - monitor BMP chronic anemia - hgb at baseline - iron - monitor cbc T2DM - hold jardiance and metformin - SSI - resume lantus when taking more PO or glucose persistently elevated HTN - no home meds HLD - statin mood - benztropine,haldol, hydroxyzine hypothyroid - levothyroxine full code VTE prophy: SCDs pending further evaluation Pt with fall vs breakthrough seizure, requiring admission for observation for further evaluation and monitoring. Quality Stroke Does the patient have a stroke diagnosis?: No VTE Prior VTE?: No VTE Risk Level:: Medical - moderate - high VTE Device Contraindication: N/A - Device Ordered VTE Drug Contraindication: Treatment Not Indicated
[2025-06-12 21:20] LABS: Glucose, Whole Blood 161 mg/dL (60-115)
[2025-06-12] MEDS: metroNIDAZOLE/NS 500 MG/100 ML PIGGYBACK 100 MG IV (21:38)
[2025-06-12] MEDS: Lactated Ringers 1,000 ML 75 ML IVCONT (21:39)
--- NOTE | 2025-06-12 22:17 | PC.NURSE ---
ABX and IVF paused at this time, pt going to receive CT scan
--- NOTE | 2025-06-12 22:27 | PC.NURSE ---
ABX and IVF restarted at this time, pt returned frome CT, chioma hugger placed back on pt, purewick placed d/t incontinence and difficulty ambulating
[2025-06-12 22:30] VITALS: BP 111/60; PULSE 73; RESP 12; TEMP 36.4; O2SAT 100
--- NOTE | 2025-06-12 22:47 | PC.NURSE ---
pt oral temp noted to be 97.5, chioma hugger removed from pt, x2 warm blankets placed on pt for comfort
[2025-06-12] MEDS: Phenytoin Chewable 50 MG TAB.CHEW 150 MG PO (23:13)
[2025-06-13 02:00] VITALS: BP 138/70; PULSE 71; RESP 12; TEMP 35.6; O2SAT 100
[2025-06-13 02:11] VITALS: TEMP 36
[2025-06-13 02:50] LABS: Glucose, Whole Blood 131 mg/dL (60-115)
[2025-06-13 04:00] VITALS: BP 127/67; PULSE 67; RESP 12; TEMP 36.4; O2SAT 100
[2025-06-13] MEDS: metroNIDAZOLE/NS 500 MG/100 ML PIGGYBACK 100 MG IV (04:37)
[2025-06-13 06:00] VITALS: BP 123/64; PULSE 72; RESP 12; TEMP 36.4; O2SAT 97
[2025-06-13 08:02] VITALS: BP 142/79; PULSE 72; RESP 18; TEMP 36.7; O2SAT 99
[2025-06-13 08:05] LABS: Glucose, Whole Blood 96 mg/dL (60-115)
[2025-06-13] MEDS: Phenytoin Chewable 50 MG TAB.CHEW 100 MG PO (08:18)
[2025-06-13] MEDS: Ferrous Sulfate 324 MG TABLET.DR PO (08:18)
[2025-06-13] MEDS: Calcium + Vitamin D 250 MG TABLET PO (08:19)
--- NOTE | 2025-06-13 08:27 | PC.NURSE ---
alert and oriented, speaking in full clear sentences. able to drink water w/out incident. medicated per the MAR - takes pills whole all at once w/ sips of water. pure wick in place - 700mL output. IV fluids infusing, pending bed assignment/dispo. offering no complaints.
--- NOTE | 2025-06-13 09:28 | MHC.CM.PN ---
Goal is for Patient to return to LTC @ [facility] via BLS. HCP on file shows Guadalupe as the HCP.
[2025-06-13 10:24] LABS: Alanine Aminotransferase 40 U/L (0-31); Albumin Level 4.0 g/dL (3.5-5.0); Alkaline Phosphatase 168 U/L (39-117); Anion Gap 16 (12-20); Aspartate Amino Transferase 34 U/L (5-31); Blood Urea Nitrogen 30 mg/dL (9-16); Calcium 9.3 mg/dL (8.4-10.2); Carbon Dioxide 22 mmol/L (22-29); Chloride 106 mmol/L (96-108); Creatinine Clr Calc Pharmacy 58.1; Estimated Glomerular Filt Rate 46; Magnesium 1.8 mg/dL (1.6-2.6); Potassium 4.2 mmol/L (3.3-5.1); Sodium 140 mmol/L (135-145); Total Protein 7.4 g/dL (6.5-8.0)
--- NOTE | 2025-06-13 10:36 | PM.NEUROCN ---
History of Present Illness Data of Consult Service Date: 06/13/25 Primary Care Provider: Unknown Physician HPI Reason for consult: Seizure 54-year-old female with a past medical history significant for TBI, dementia, seizure disorder, SAH, anxiety, mood disorder, diabetes, hypertension, hyperlipidemia, hypothyroid and history of ESBL UTI, who presented to the ED from [facility] due to a fall versus seizure. She said that she suffered from seizures but further details were not available. Her previous records a not here. I noted that she was taking oxcarbazepine, which might have been for seizures or behavioral symptoms. Review of Systems Review of Systems: No recent cold or flu-like illness. No new medicine that she recently took. [facility] Past Medical History Medical History (Updated 06/12/25 @ 22:59 by Adilene Salinas PA-C) Adjustment reaction with mixed disturbance of emotions and conduct Anxiety Mood disorder Leiomyoma of body of uterus Preglaucoma Presbyopia UTI (urinary tract infection) Hypothermia Long QT syndrome Sepsis COVID-19 Cystitis Hyperkalemia ESBL (extended spectrum beta-lactamase) producing bacteria infection Essential (primary) hypertension Diabetic retinopathy Anxiety Mood disorder Dementia Subarachnoid hemorrhage following injury TBI (traumatic brain injury) Unspecified dementia with behavioral disturbance Seizure disorder Hypothyroid Hyperlipidemia Diabetes Family History Family History Mother Breast cancer Surgical History Surgical History Hx of tubal ligation Social History Social History Household Members: Other Housing: Senior Care Do you presently have visiting nurse or other home services: No Alcohol intake: never Patient Tobacco Use Status: Never used Tobacco Smoked in Last 30 Days: No Use of substances other than those prescribed or required for medical reasons: No Advance Directives: Yes Advance Directives on File: Yes Advance Directives Date on File: 03/23/21 Patient : No service: No Current occupational status: disabled Meds Allergies Allergy/AdvReac Type Severity Reaction Status Date / Time chlorpromazine Allergy Intermediate HIVES Verified 06/12/25 13:06 (CHLORPROMAZINE) Active Medications: Current Medications Acetaminophen (Acetaminophen 325 Mg Tablet) 650 mg PO Q6H PRN PRN Reason: Pain, Mild 1-3,fever,headache Ascorbic Acid (Ascorbic Acid 500 Mg Tablet) 500 mg PO DAILY [facility] Last Admin: 06/13/25 08:19 Dose: 500 mg Atorvastatin Calcium (Atorvastatin Calcium 10 Mg Tablet) 10 mg PO BEDTIME [facility] Last Admin: 06/12/25 23:15 Dose: 10 mg Benztropine Mesylate (Benztropine Mesylate 0.5 Mg Tablet) 0.5 mg PO BID [facility] Last Admin: 06/13/25 08:18 Dose: 0.5 mg Benztropine Mesylate (Benztropine Mesylate 1 Mg Tablet) 1 mg PO BID [facility] Last Admin: 06/13/25 08:19 Dose: 1 mg Calcium Carbonate (Calcium Carbonate 750 Mg Tab.Chew) 750 mg PO Q4H PRN PRN Reason: Heartburn Calcium Carbonate/Cholecalciferol (Calcium + Vitamin D 250 Mg Tablet) 250 mg PO BID [facility] Last Admin: 06/13/25 08:19 Dose: 250 mg Dextrose (Dextrose 50 % 25 Gm/50 Ml Syringe) 25 gm IVPUSH Q15M PRN; Protocol PRN Reason: per Hypoglycemia Standing Ord. Docusate Sodium (Docusate Sodium 100 Mg Capsule) 100 mg PO BID [facility] Last Admin: 06/13/25 08:19 Dose: 100 mg Ferrous Sulfate (Ferrous Sulfate 324 Mg Tablet.Dr) 324 mg PO DAILY [facility] Last Admin: 06/13/25 08:18 Dose: 324 mg Gabapentin (Gabapentin 600 Mg Tablet) 600 mg PO TID [facility] Last Admin: 06/13/25 08:19 Dose: 600 mg Glucose (Glucose Gel 15 Gm Gel..Gram.) 15 gm PO Q15M PRN; Protocol PRN Reason: per Hypoglycemia Standing Ord. Guaifenesin (Guaifenesin 200 Mg/10 Ml 10 Ml Liquid) 10 ml PO Q4H PRN PRN Reason: Cough Haloperidol (Haloperidol 5 Mg Tablet) 5 mg PO BID [facility] Last Admin: 06/13/25 08:18 Dose: 5 mg Haloperidol (Haloperidol 5 Mg Tablet) 10 mg PO BID [facility] Last Admin: 06/13/25 08:18 Dose: 10 mg Hydroxyzine HCl (Hydroxyzine Hcl 25 Mg Tablet) 25 mg PO BID [facility] Last Admin: 06/13/25 08:18 Dose: 25 mg Ceftriaxone Sodium 1 gm/ (Sodium Chloride) 50 mls @ 100 mls/hr IV Q24H [facility] Last Infusion: 06/12/25 22:09 Dose: Infused Metronidazole (Flagyl) 500 mg in 100 mls @ 100 mls/hr IV Q8H [facility] Last Infusion: 06/13/25 05:52 Dose: Infused Lactated Ringer's (Lr) 1,000 mls @ 75 mls/hr IVCONT .[id number] [facility] Last Admin: 06/12/25 21:39 Dose: 75 mls/hr Insulin Human Lispro (Insulin Lispro 100 Unit/Ml 3 Ml Vial) 0 unit SUBCUT Q6H [facility]; Protocol Last Admin: 06/13/25 08:04 Dose: Not Given Levetiracetam (Levetiracetam 1,000 Mg Tablet) 1,000 mg PO BID [facility] Last Admin: 06/13/25 08:19 Dose: 1,000 mg Levothyroxine Sodium (Levothyroxine Sodium 75 Mcg Tablet) 75 mcg PO DAILY@0600 [facility] Last Admin: 06/13/25 06:37 Dose: 75 mcg Levothyroxine Sodium (Levothyroxine Sodium 100 Mcg Tablet) 100 mcg PO DAILY@0600 [facility] Last Admin: 06/13/25 06:37 Dose: 100 mcg Magnesium Hydroxide (Milk Of Magnesia 30 Ml Oral.Susp) 30 ml PO DAILY PRN PRN Reason: Constipation Melatonin (Melatonin 3 Mg Tablet) 6 mg PO BEDTIME PRN PRN Reason: Insomnia Multivitamins/Vitamin C (Multivitamin Tablet) 1 tab PO DAILY [facility] Last Admin: 06/13/25 08:19 Dose: 1 tab Ondansetron HCl (Ondansetron Hcl 4 Mg/2 Ml Vial) 4 mg IVPUSH Q8H PRN PRN Reason: Nausea and Vomiting Oxcarbazepine (Oxcarbazepine 150 Mg Tablet) 150 mg PO DAILY [facility] Last Admin: 06/13/25 08:19 Dose: 150 mg Oxcarbazepine (Oxcarbazepine 300 Mg Tablet) 300 mg PO BEDTIME [facility] Last Admin: 06/12/25 23:14 Dose: 300 mg Oxycodone HCl (Oxycodone Hcl Immed Release 5 Mg Tablet) 5 mg PO Q6H PRN PRN Reason: Pain, Severe (Pain Scale 7-10) Phenytoin (Phenytoin Chewable 50 Mg Tab.Chew) 150 mg PO BEDTIME [facility] Last Admin: 06/12/25 23:13 Dose: 150 mg Phenytoin (Phenytoin Chewable 50 Mg Tab.Chew) 100 mg PO DAILY [facility] Last Admin: 06/13/25 08:18 Dose: 100 mg Senna (Sennosides 8.6 Mg Tablet) 8.6 mg PO BID [facility] Last Admin: 06/13/25 08:18 Dose: 8.6 mg Senna (Sennosides 8.6 Mg Tablet) 8.6 mg PO DAILY PRN PRN Reason: Constipation Sodium Chloride (0.9 % Sodium Chloride Flush 3 Ml Syringe) 3 ml IVFLUSH QSHIFT [facility] Last Admin: 06/13/25 07:39 Dose: Not Given Vitamin D (Cholecalciferol (Vitamin D3) 25 Mcg Tablet) 25 mcg PO DAILY [facility] Last Admin: 06/13/25 08:18 Dose: 25 mcg Home Medications ?Medication ?Instructions ?Recorded ?Confirmed ?Last Taken ?Type acetaminophen 325 mg tablet 650 mg PO Q12H PRN Fever Or Pain 10/29/22 06/12/25 Unknown History atorvastatin 10 mg tablet 10 mg PO BEDTIME 10/29/22 06/12/25 Unknown History benztropine 1 mg tablet 1 mg PO BID 10/29/22 06/12/25 Unknown History calcium 600 mg (as 1 tab PO BID 10/29/22 06/12/25 Unknown History carbonate)-vitamin D3 10 mcg (400 unit) tablet (Calcium 600 + D(3)) cholecalciferol (vitamin D3) 1,250 1,250 mcg PO MO@0900 10/29/22 06/12/25 Unknown History mcg (50,000 unit) capsule docusate sodium 100 mg capsule 100 mg PO BID 10/29/22 06/12/25 Unknown History ferrous sulfate 324 mg (65 mg 324 mg PO DAILY 10/29/22 06/12/25 Unknown History iron) tablet,delayed release gabapentin 600 mg tablet 600 mg PO TID 10/29/22 06/12/25 Unknown History guaifenesin 100 mg/5 mL oral liquid 200 mg PO Q4H PRN Cough 10/29/22 06/12/25 Unknown History haloperidol 10 mg tablet 10 mg PO BID 10/29/22 06/12/25 Unknown History haloperidol 5 mg tablet 5 mg PO BID 10/29/22 06/12/25 Unknown History hydroxyzine HCl 25 mg tablet 25 mg PO BID 10/29/22 06/12/25 Unknown History ibuprofen 600 mg tablet 600 mg PO Q8H PRN Moderate Pain 10/29/22 06/12/25 Unknown History (Scale Score 5-6) insulin aspart U-100 100 unit/mL 1 sliding scale dose subcut 10/29/22 06/12/25 Unknown History subcutaneous solution (Novolog USEASDIRECTD U-100 Insulin aspart) levetiracetam 1,000 mg tablet 1,000 mg PO BID 10/29/22 06/12/25 Unknown History metformin 1,000 mg tablet 1,000 mg PO BID 10/29/22 06/12/25 Unknown History oxcarbazepine 150 mg tablet 150 mg PO DAILY 10/29/22 06/12/25 Unknown History (Trileptal) oxcarbazepine 300 mg tablet 300 mg PO BEDTIME 10/29/22 06/12/25 Unknown History (Trileptal) sennosides 8.6 mg tablet (senna) 8.6 mg PO DAILY PRN Constipation 10/29/22 06/12/25 Unknown History sodium phosphates 19 gram-7 118 ml UT DAILY PRN Constipation, 10/29/22 06/12/25 Unknown History gram/118 mL enema (Fleet Enema) if bisacodyl ineffective cranberry fruit 450 mg tablet 450 mg PO DAILY 08/22/23 06/12/25 Unknown History (cranberry) insulin glargine 100 unit/mL (3 12 unit subcut BEDTIME 08/22/23 06/12/25 Unknown History mL) subcutaneous pen (Lantus Solostar U-100 Insulin) phenytoin 50 mg chewable tablet 100 mg PO DAILY 08/22/23 06/12/25 Unknown History ascorbic acid (vitamin C) 500 mg 500 mg PO DAILY 06/12/25 06/12/25 Unknown History tablet benztropine 0.5 mg tablet 0.5 mg PO BID 06/12/25 06/12/25 Unknown History empagliflozin 25 mg tablet 25 mg PO DAILY 06/12/25 06/12/25 Unknown History (Jardiance) glucagon HCl 1 mg solution for 1 mg subcut Q15M PRN target blood 06/12/25 06/12/25 Unknown History injection sugar attained levothyroxine 75 mcg tablet 75 mcg PO DAILY@0600 06/12/25 06/12/25 Unknown History multivitamin 1 tab PO DAILY 06/12/25 06/12/25 Unknown History naloxone 4 mg/actuation nasal 4 mg intranasal Q3M PRN suspected 06/12/25 06/12/25 Unknown History spray (Narcan) opioid overdose oxycodone-acetaminophen 5 mg-325 1 tab PO Q6H PRN moderate knee pain 06/12/25 06/12/25 Unknown History mg tablet (Percocet) phenytoin 50 mg chewable tablet 150 mg PO BEDTIME 06/12/25 06/12/25 Unknown History sennosides 8.6 mg tablet 8.6 mg PO BID 06/12/25 06/12/25 Unknown History tramadol 50 mg tablet 50 mg PO TID 06/12/25 06/12/25 Unknown History Physical Exam Vital Signs: Vital Signs: Last Vital Signs Temp 98.0 F 06/13/25 08:02 Pulse 72 06/13/25 08:02 Resp 18 06/13/25 08:02 BP 142/79 H 06/13/25 08:02 Pulse Ox 99 06/13/25 08:02 O2 Del Method Room Air 06/13/25 08:02 BMI result Body Mass Index 26.6 Neuro: Other: Mental Status: She is alert and awake with normal spontaneity of speech fluency comprehension and affect. She has following commands. 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 accommodation. Extraocular movements are normal. CN V: Facial sensation is normal. CN VII: Facial movements symmetrical. CN VIII: Hearing intact to bedside conversation is normal. CN IX, X: Palate elevates symmetrically. CN XI: Shoulder shrug and head turn symmetrical. CN XII: Tongue midline without atrophy or fasciculations. Motor: Deep tendon reflexes are absent with flexor plantars. [id number] testing revealed mild bilateral ataxia. Extrapyramidal: Decreased facial expression and blinking. Mild right hand resting tremor. Mild hand cogwheeling rigidity upon reinforcement. Speech: Normal; no dysarthria or tremor. Results Labs 06/12/25 13:38 06/13/25 09:57 Labs: Short CBC 06/12/25 Range/Units 13:38 WBC 6.2 (4.8-10.8) X10*3/uL Hgb 10.3 L (12.0-16.0) g/dl Hct 31.7 L (37.0-47.0) % Plt Count 202 (160-400) X10*3/uL BMP 06/12/25 06/12/25 06/13/25 13:38 17:23 09:57 Sodium 129 L 132 L 140 Potassium 4.3 4.5 4.2 Chloride 95 L 102 106 Carbon Dioxide 21 L 20 L 22 BUN 47 H 44 H 30 H Creatinine 1.95 H 1.62 H 1.21 Calcium 9.8 8.9 D 9.3 Cardiac Enzymes 06/12/25 Range/Units 13:38 Total Creatine Kinase 77 (26-140) U/L Liver Function 06/12/25 06/13/25 Range/Units 13:38 09:57 Total Bilirubin 0.2 0.2 (0.0-1.0) mg/dL AST 41 H 34 H (5-31) U/L ALT 46 H 40 H (0-31) U/L Alkaline Phosphatase 172 H 168 H (39-117) U/L Albumin 4.4 4.0 (3.5-5.0) g/dL Urine 06/12/25 Range/Units 13:57 Urine Color Yellow Urine Appearance Clear Urine pH 5.0 (5.0-9.0) Ur Specific [place] 1.015 (1.005-1.025) Urine Protein Negative (Neg-Trace) mg/dL Urine Glucose (UA) >=1000 H (Negative) mg/dL CT head without contrast Comparison: 07/09/2024 Findings: No intracranial mass, midline shift, hydrocephalus, or acute hemorrhage. No CT evidence of acute ischemia. Visualized paranasal sinuses and mastoid air cells normal. Orbits unremarkable. No skull fracture Impression: 1. No acute intracranial abnormalities. Assessment and Plan (1) Seizure: Status: Acute 54 years old woman with complex underlying medical history with psychiatric disease and I pathology causing significant blindness. She was always at risk of falling. In addition she carried diagnosis of seizure disorder, who was nature in details were unclear. She has mild parkinsonian features, and on her head CT, I see significant cerebellar atrophy raising possibility of a spinocerebellar parkinsonian syndrome, which further increases her risk of falling. Conservative management is recommended. I would recommend an EEG. At the same time, medicines like oxcarbazepine should be used with caution as she was growing older as it would lower her serum sodium further increasing the risk. If given for behavioral reasons, an alternate medicine might be a good idea. Procedures Date of Service Date of Service: 06/13/25
[2025-06-13] MEDS: PHENYTOIN SODIUM IV (10:40)
[2025-06-13] MEDS: SODIUM CHLORIDE 0.9% IV (10:40)
[2025-06-13 10:48] LABS: Hematocrit 31.5 % (37.0-47.0); Hemoglobin 10.2 g/dl (12.0-16.0); Imm Gran Abs Auto 0.01 X10*3/uL (0.00-0.03); Imm Gran Pct Auto 0.2 % (0.0-0.4); Lymphocytes Absolute Auto 1.5 X10*3/uL (1.2-4.9); Mean Corpuscular HGB Conc 32.4 g/dl (31.0-35.0); Mean Corpuscular Hemoglobin 28.3 pg (27.0-33.0); Mean Corpuscular Volume 87.5 fL (80.0-98.0); NRBC Abs Auto 0.000 X10*3/uL (0.0-0.012); NRBC Pct Auto 0.0 /100WBC (0.0-0.2); Platelet Count 193 X10*3/uL (160-400); Red Blood Count 3.60 X10*6/uL (4.20-5.50); White Blood Count 4.9 X10*3/uL (4.8-10.8)
--- NOTE | 2025-06-13 11:25 | P.DS_ITS ---
DS: Providers Provider Date of Service: 06/13/25 Date of admission: 06/13/25 09:26 Date of discharge: 06/13/25 Primary care physician: Unknown Physician Consults: 06/12/25 20:42 Consult to Neurology Routine Consulting Provider: [facility] Reason for consultation: suspected breakthrough seizure DS: Diagnosis Discharge Diagnosis (1) Seizure: Status: Acute DS: Summary Status at Discharge Cognitive/behavioral status at discharge: 54-year-old female with a past medical history significant for TBI, dementia, seizure disorder, SAH, anxiety, mood disorder, diabetes, hypertension, hyperlipidemia, hypothyroid and history of ESBL UTI, who presented to the ED from [facility] due to a fall versus seizure. The fall was unwitnessed however there was a suspected head strike. The patient was found unresponsive. When the patient arrived to the ED she was sleeping however arousable to verbal stimuli. She has a laceration of the lip and a tooth avulsion. Labs were significant for mild MARIBEL, hypochloremia and hyponatremia. She received 1 L of normal saline with improvement from 129-132. She also has acute lactic acidosis, likely from seizure rather than infection. Dilantin level mildly low and Keppra level pending. The patient is now more alert, complaining of mouth pain. Unable to provide much history, does not recall events prior to fall. slow to respond. Recent vital check her temperature was 95 degrees temporarily, 94.[address] ordered. Patient started empirically on ceftriaxone and Flagyl. Hospital Course Patient admitted to telemetry where monitor failed to demonstrate any acute dysrhythmias. Dilantin level was found to be slightly low and she was given 500 mg of IV Dilantin. She was seen by Neurology who essentially stated conservative care at this time. At this time she is back to her baseline (well known to me) and is medically acceptable to transfer back to [facility] Time Attestation Discharge Coordination Time (in mins): 35 Quality: Safe Use of Opioids Does Pt have an Active Cancer Diagnosis on the Problem List?: No Quality: Stroke Does the patient have a stroke diagnosis?: No Physical Exam Vital Signs: Vital Signs: Last Vital Signs Temp 98.0 F 06/13/25 08:02 Pulse 72 06/13/25 08:02 Resp 18 06/13/25 08:02 BP 142/79 H 06/13/25 08:02 Pulse Ox 99 06/13/25 08:02 O2 Del Method Room Air 06/13/25 08:02 BMI result Body Mass Index 26.6 Const: Other: Awake alert no acute distress Resp: Other: Clear to auscultation bilaterally no rales rhonchi or wheezes Cardio: Other: No S4; positive S1-S2; no S3 murmurs rubs or gallops GI: Other: Soft nontender nondistended normoactive bowel sounds Extrem: Other: No edema bilaterally DS: Data Data Completed and Pending Completed studies during hospitalization [Text1]: Procedures Insertion of Infusion Device into Upper Vein, Percutaneous Approach (08/22/23) Labs on day of discharge: Laboratory Results - last 24 hr 06/12/25 06/12/25 06/12/25 13:38 13:57 13:59 WBC 6.2 RBC 3.66 L Hgb 10.3 L Hct 31.7 L MCV 86.6 MCH 28.1 MCHC 32.5 RDW 13.5 Plt Count 202 MPV 9.8 Immature Gran % (Auto) 0.3 Neut % (Auto) 48.7 Lymph % (Auto) 39.0 [place] % (Auto) 9.8 Eos % (Auto) 2.0 Baso % (Auto) 0.2 Lymph # (Auto) 2.4 [place] # (Auto) 0.6 Eos # (Auto) 0.1 Baso # (Auto) 0.0 Abs Immat Gran (auto) 0.02 Absolute Neuts (auto) 3.0 Absolute Nucleated RBC 0.000 Nucleated RBC % (auto) 0.0 Sodium 129 L Potassium 4.3 Chloride 95 L Carbon Dioxide 21 L Anion Gap 17 BUN 47 H Creatinine 1.95 H Estim Creat Clear Calc 36.0 Estimated GFR 27 POC Glucose Random Glucose 225 H Lactic Acid 2.5 H* Lactic Acid F/U @ 2Hr Calcium 9.8 Magnesium 1.8 Total Bilirubin 0.2 AST 41 H ALT 46 H Alkaline Phosphatase 172 H Total Creatine Kinase 77 Troponin I High Sens 8.2 Total Protein 8.1 H Albumin 4.4 Urine Color Yellow Urine Appearance Clear Urine pH 5.0 Ur Specific [place] 1.015 Urine Protein Negative Urine Glucose (UA) >=1000 H Urine Ketones Negative Urine Blood Negative Urine Nitrite Negative Ur Leukocyte Esterase Negative Urine RBC 0-2 Urine WBC 0-5 Ur Squamous Epith Cells 0-2 Urine Bacteria None Seen Hyaline Casts 0-2 Phenytoin 9.7 L COVID-19 (ELIZ) Negative COVID-19 Clin Com See Note Influenza Type A (BC) Negative Influenza Type B (BC) Negative Influenza A & B Note See Note 06/12/25 06/12/25 06/12/25 16:28 17:23 21:15 WBC RBC Hgb Hct MCV MCH MCHC RDW Plt Count MPV Immature Gran % (Auto) Neut % (Auto) Lymph % (Auto) [place] % (Auto) Eos % (Auto) Baso % (Auto) Lymph # (Auto) [place] # (Auto) Eos # (Auto) Baso # (Auto) Abs Immat Gran (auto) Absolute Neuts (auto) Absolute Nucleated RBC Nucleated RBC % (auto) Sodium 132 L Potassium 4.5 Chloride 102 Carbon Dioxide 20 L Anion Gap 15 BUN 44 H Creatinine 1.62 H Estim Creat Clear Calc 43.4 Estimated GFR 33 POC Glucose 161 H Random Glucose 207 H Lactic Acid Lactic Acid F/U @ 2Hr 0.9 Calcium 8.9 D Magnesium Total Bilirubin AST ALT Alkaline Phosphatase Total Creatine Kinase Troponin I High Sens Total Protein Albumin Urine Color Urine Appearance Urine pH Ur Specific [place] Urine Protein Urine Glucose (UA) Urine Ketones Urine Blood Urine Nitrite Ur Leukocyte Esterase Urine RBC Urine WBC Ur Squamous Epith Cells Urine Bacteria Hyaline Casts Phenytoin COVID-19 (ELIZ) COVID-19 Clin Com Influenza Type A (BC) Influenza Type B (BC) Influenza A & B Note 06/13/25 06/13/25 06/13/25 02:44 08:00 09:57 WBC RBC Hgb Hct MCV MCH MCHC RDW Plt Count MPV Immature Gran % (Auto) Neut % (Auto) Lymph % (Auto) [place] % (Auto) Eos % (Auto) Baso % (Auto) Lymph # (Auto) [place] # (Auto) Eos # (Auto) Baso # (Auto) Abs Immat Gran (auto) Absolute Neuts (auto) Absolute Nucleated RBC Nucleated RBC % (auto) Sodium 140 Potassium 4.2 Chloride 106 Carbon Dioxide 22 Anion Gap 16 BUN 30 H Creatinine 1.21 Estim Creat Clear Calc 58.1 Estimated GFR 46 POC Glucose 131 H 96 Random Glucose 98 Lactic Acid Lactic Acid F/U @ 2Hr Calcium 9.3 Magnesium 1.8 Total Bilirubin 0.2 AST 34 H ALT 40 H Alkaline Phosphatase 168 H Total Creatine Kinase Troponin I High Sens Total Protein 7.4 Albumin 4.0 Urine Color Urine Appearance Urine pH Ur Specific [place] Urine Protein Urine Glucose (UA) Urine Ketones Urine Blood Urine Nitrite Ur Leukocyte Esterase Urine RBC Urine WBC Ur Squamous Epith Cells Urine Bacteria Hyaline Casts Phenytoin COVID-19 (ELIZ) COVID-19 Clin Com Influenza Type A (BC) Influenza Type B (BC) Influenza A & B Note 06/13/25 10:35 WBC 4.9 RBC 3.60 L Hgb 10.2 L Hct 31.5 L MCV 87.5 MCH 28.3 MCHC 32.4 RDW 13.6 Plt Count 193 MPV 9.4 Immature Gran % (Auto) 0.2 Neut % (Auto) 55.4 Lymph % (Auto) 29.6 [place] % (Auto) 13.2 H Eos % (Auto) 1.2 Baso % (Auto) 0.4 Lymph # (Auto) 1.5 [place] # (Auto) 0.7 Eos # (Auto) 0.1 Baso # (Auto) 0.0 Abs Immat Gran (auto) 0.01 Absolute Neuts (auto) 2.7 Absolute Nucleated RBC 0.000 Nucleated RBC % (auto) 0.0 Sodium Potassium Chloride Carbon Dioxide Anion Gap BUN Creatinine Estim Creat Clear Calc Estimated GFR POC Glucose Random Glucose Lactic Acid Lactic Acid F/U @ 2Hr Calcium Magnesium Total Bilirubin AST ALT Alkaline Phosphatase Total Creatine Kinase Troponin I High Sens Total Protein Albumin Urine Color Urine Appearance Urine pH Ur Specific [place] Urine Protein Urine Glucose (UA) Urine Ketones Urine Blood Urine Nitrite Ur Leukocyte Esterase Urine RBC Urine WBC Ur Squamous Epith Cells Urine Bacteria Hyaline Casts Phenytoin COVID-19 (ELIZ) COVID-19 Clin Com Influenza Type A (BC) Influenza Type B (BC) Influenza A & B Note Discharge Plan Discharge Anticipated Discharge Date/Time: 06/13/25 11:21 Patient Disposition: Xfer [facility] Discharge Diagnosis: Fall Referrals: Physician,Unknown J [Primary Care Provider, Medical] - 1 Week Discharge Medications: Continued oxcarbazepine [Trileptal] 150 mg Tablet 150 mg PO DAILY sennosides [senna] 8.6 mg Tablet 8.6 mg PO DAILY PRN (Reason: Constipation) acetaminophen 325 mg Tablet 650 mg PO Q12H PRN (Reason: Fever Or Pain) gabapentin 600 mg Tablet 600 mg PO TID haloperidol 5 mg Tablet 5 mg PO BID atorvastatin 10 mg Tablet 10 mg PO BEDTIME oxcarbazepine [Trileptal] 300 mg Tablet 300 mg PO BEDTIME guaifenesin 100 mg/5 mL Liquid 200 mg PO Q4H PRN (Reason: Cough) insulin aspart U-100 [Novolog U-100 Insulin aspart] 100 unit/mL Solution 1 sliding scale dose SUBCUT USEASDIRECTD Protocol: Insulin Correction Scale Less than or equal to 110 ---- Give (units): 0 111 to 150 Give (units): 0 151 to 200 Give (units): 2 201 to 250 Give (units): 4 251 to 300 Give (units): 6 301 to 350 Give (units): 8 Greater than 350 Give (units): 10 Call MD if Blood Glucose > : 350 metformin 1,000 mg Tablet 1,000 mg PO BID haloperidol 10 mg Tablet 10 mg PO BID benztropine 1 mg Tablet 1 mg PO BID Fleet Enema 19-7 gram/118 mL Enema 118 ml OR DAILY PRN (Reason: Constipation, if bisacodyl ineffective) docusate sodium 100 mg Capsule 100 mg PO BID hydroxyzine HCl 25 mg Tablet 25 mg PO BID ibuprofen 600 mg Tablet 600 mg PO Q8H PRN (Reason: Moderate Pain (Scale Score 5-6)) levetiracetam 1,000 mg Tablet 1,000 mg PO BID calcium carbonate-vitamin D3 [Calcium 600 + D(3)] 600 mg-10 mcg (400 unit) Tablet 1 tab PO BID cholecalciferol (vitamin D3) 1,250 mcg (50,000 unit) Capsule 1,250 mcg PO MO@0900 ferrous sulfate 324 mg (65 mg iron) Tablet,Delayed Release (Dr/Ec) 324 mg PO DAILY phenytoin 50 mg Tablet,Chewable 100 mg PO DAILY cranberry 450 mg Tablet 450 mg PO DAILY Rx Instructions: administer with a meal insulin glargine [Lantus Solostar U-100 Insulin] 100 unit/mL (3 mL) insulin pen 12 unit SUBCUT BEDTIME Rx Instructions: HOLD IF DINNER NOT CONSUMED levothyroxine [Synthroid] 100 mcg Tablet 100 mcg PO DAILY@0600 Qty: 30 0RF multivitamin Tablet 1 tab PO DAILY sennosides 8.6 mg Tablet 8.6 mg PO BID benztropine 0.5 mg Tablet 0.5 mg PO BID phenytoin 50 mg Tablet,Chewable 150 mg PO BEDTIME tramadol 50 mg Tablet 50 mg PO TID levothyroxine 75 mcg Tablet 75 mcg PO DAILY@0600 oxycodone-acetaminophen [Percocet] 5-325 mg Tablet 1 tab PO Q6H PRN (Reason: moderate knee pain) ascorbic acid (vitamin C) 500 mg Tablet 500 mg PO DAILY Jardiance 25 mg Tablet 25 mg PO DAILY naloxone [Narcan] 4 mg/actuation [place],Non-Aerosol 4 mg INTRANASAL Q3M PRN (Reason: suspected opioid overdose) Rx Instructions: spray 1 dose into ONE nostril; alternate nostrils w each dose until help arrives glucagon HCl 1 mg Recon Soln 1 mg SUBCUT Q15M MDD 2 PRN (Reason: target blood sugar attained) Rx Instructions: until target blood sugar attained Discharge Orders: Discharge Order (Routine); Ordered 06/13/25 Ordered By: Roby Roth Diet: Advance to usual diet Activity on Discharge: As tolerated Stand Alone Forms: Patient Portal Discharge page Print Language: Bulgarian Care Plan Goals: Resume all meds as taken prior to hospitalization Health Concerns: Check Dilantin level 06/14/2025 Plan of Treatment: Resume care plan as per [facility] Assessment: See discharge summary
--- NOTE | 2025-06-13 11:35 | PC.NURSE ---
recollect needed for cbc, provider states to hold off on drawing d/t patient being ready for discharge. ambulance being booked at this time for next available. patient continues to rest quietly, only intermittently complaining of mouth pain however denies prn pain medications
--- NOTE | 2025-06-13 11:53 | MHC.CM.PN ---
Patient has been medically cleared for dc to [facility]. MARTIN spoke with Diane, who indicated that prior auth would be needed for transport r/t Patient's [place] Medicaid; CM informed MD & ED RN, who indicated that the ED Rotating Equipment Specialist had no problem booking the trip with Diane and that the BLS will be here at 12:30 to transport. CM requested that the SNF provide transport but MARTIN has not yet heard back if this is an option, particularly on a Saturday.
[2025-06-13 12:22] VITALS: BP 144/60; PULSE 71; RESP 16; TEMP 36.6; O2SAT 100
--- NOTE | 2025-06-13 12:29 | MHC.CM.PN ---
CM has still not received a response from [facility], confirming that they are aware that Patient is returning today; Dr. Roth is informing the DON.
== END 2025-06-13 12:55 | disposition skilled nursing facility (03) | DRG 53 ==
LOC: HO.ED 18:17 → HO.EDOVER 18:43
PROVIDERS: Nurse Practitioner Family; Physician Assistant; Physician Assistant Medical; Admitting Provider Internal Medicine; Emergency Provider Emergency Medicine Emergency Medical Services; Visit Provider Hospitalist
DX: G40.909 Epilepsy, unspecified, not intractable, without status epilepticus (principal); N17.9 Acute kidney failure, unspecified; E87.1 Hypo-osmolality and hyponatremia; E87.8 Other disorders of electrolyte and fluid balance, not elsewhere classified; F03.90 Unspecified dementia, unspecified severity, without behavioral disturbance, psychotic disturbance, mood disturbance, and anxiety; E03.9 Hypothyroidism, unspecified; S01.511A Laceration without foreign body of lip, initial encounter; W19.XXXA Unspecified fall, initial encounter; S03.2XXA Dislocation of tooth, initial encounter; Z20.822 Contact with and (suspected) exposure to COVID-19; Z87.820 Personal history of traumatic brain injury; Z87.440 Personal history of urinary (tract) infections; Z79.4 Long term (current) use of insulin; Z79.890 Hormone replacement therapy; Z79.899 Other long term (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
CPT/HCPCS: 36415; 70450; 71045; 72125; 74176; 80048; 80053; 80177; 80185; 81001; 82550; 82947; 83605; 83735; 84484; 85025; 87502; 87635; 93005; 99222; 99285; J0696; J1165; J1836; J1953; J7120

== ENCOUNTER → 2025-06-12 12:27 | Outpatient (BNV) | payer MEDICAID, SELFPAY | PROVIDERS: Admitting Provider Internal Medicine; Emergency Provider Emergency Medicine Emergency Medical Services; Visit Provider Internal Medicine Cardiovascular Disease | DX: Z04.3 Encounter for examination and observation following other accident (principal) | CPT/HCPCS: 93010 ==

== ENCOUNTER → 2025-06-12 12:27 | Outpatient (BNV) | payer MEDICAID, SELFPAY | PROVIDERS: Emergency Provider Emergency Medicine Emergency Medical Services; Visit Provider Radiology Diagnostic Radiology | DX: S09.90XA Unspecified injury of head, initial encounter (principal); W18.00XA Striking against unspecified object with subsequent fall, initial encounter | CPT/HCPCS: 70450; 71045; 72125 ==

== ENCOUNTER → 2025-06-13 09:26 | Outpatient (BNV) | payer MEDICAID, SELFPAY | PROVIDERS: Admitting Provider Internal Medicine; Emergency Provider Emergency Medicine Emergency Medical Services; Visit Provider Hospitalist | DX: R56.9 Unspecified convulsions (principal) | CPT/HCPCS: 99239 ==

== ENCOUNTER → 2025-06-13 09:26 | Outpatient (BNV) | payer MEDICAID, SELFPAY | PROVIDERS: Admitting Provider Internal Medicine; Emergency Provider Emergency Medicine Emergency Medical Services; Visit Provider Psychiatry & Neurology Neurology | DX: R56.9 Unspecified convulsions (principal) | CPT/HCPCS: 99223 ==

== ENCOUNTER 2025-07-18 13:09 | Emergency (ER) | payer MEDICAID, SELFPAY ==
[2025-07-18] VITALS (11 sets, daily range): BP systolic 126–182; BP diastolic 65–94; PULSE 100–117; RESP 14–17; TEMP 36.1–37.4; O2SAT 95–99; BMI 26.5
--- NOTE | ~2025-07-18 | XR_ITS ---
CLINICAL HISTORY: tachycardic 1 view chest x-ray Comparison: CR - XR CHEST 1V - 06/12/25 16:25 EDT Findings: No consolidation or effusion. Normal size heart. No acute fracture. IMPRESSION: 1. No acute findings. This document has been electronically signed by: Wes Gonzalez MD on 07/18/2025 19:11:07
--- NOTE | ~2025-07-18 | CT_ITS ---
CLINICAL HISTORY: agitated CT head without contrast Comparison: Head CT from 06/12/2025 Findings: No acute intracranial hemorrhage. No midline shift or hydrocephalus. No large arterial territorial infarction by CT, with artifacts including mild motion artifacts. Imaged paranasal sinuses and imaged mastoid air cells are well aerated. Metal artifacts noted from superficial metal. Vascular calcifications noted. No acute skull fracture. IMPRESSION: 1. No acute intracranial abnormality by CT This document has been electronically signed by: Dustin Dean MD on 07/19/2025 01:35:36
--- NOTE | ~2025-07-18 | CT_ITS ---
CLINICAL HISTORY: abdominal tenderness, cant report sxs --- Additional Notes or Special Instructions: ATTEMPTED ABD PEL SCAN, PT BECAME SICK AND COMBATIVE, LIMITED STUDY CT abdomen with contrast Comparison: CT of the abdomen and pelvis from 06/12/2025 Findings: Mild bibasilar atelectasis/pneumonitis accentuated by motion artifacts. Portions of the abdomen are obscured by artifacts, including related to positioning and motion of the upper extremities. Mild fat deposition of the imaged liver. Gallbladder is distended. Mild adrenal hyperplasia accentuated by artifacts. Mild volume loss of the pancreas noted. Partially imaged spleen is nonenlarged. No definite hydronephrosis of either imaged kidney. No definite change in cystic lesion of the upper pole of the right kidney. Low-density of the upper pole of the left kidney is nonspecific. Differential considerations include pyelonephritis. This may be accentuated by artifacts. Fluid in the small bowel loops can be seen with enteritis. No definite small bowel obstruction in the [id number] imaged abdomen. Wall thickening of the large intestine is nonspecific and may reflect mild colitis. Degenerative changes include facet arthropathy. Osseous structures mostly obscured in the deformed by motion artifacts. Calcifications of the uterus fibroids noted on the community health nurse image. Additional pelvis not included and/or assessed at this time. IMPRESSION: 1. No definite small bowel obstruction in the motion degraded examination. 2. Wall thickening of the large intestine is nonspecific and may reflect colitis. 3. Mild bibasilar atelectasis/pneumonitis. 4. Nonspecific low-density of the imaged left kidney in the study with motion artifacts. Findings of pyelonephritis could be considered. No hydronephrosis at this time. This document has been electronically signed by: Dustin Dean MD on 07/19/2025 01:32:12
--- OUTSIDE RECORDS SUMMARY | 2025-07-18 13:28 | XMS_ITS | Encounter Summary ---
Author Organization Address [address] [place] [address] Care Team Providers Care Research Test Engine Operator Name Role Phone Roby Roth MD Primary Care Provider Encounter Details Date Type Department Care Team (Latest Contact Info) Description 03/19/2025 Lab Requisition [facility] Lab [address] [facility] [place] [address] Roby Roth MD [address] [place] [address] Dr [address] [place], [place] Unspecified convulsions (CMS/HCC V24, CMS/HCC V28); [...] Routine 03/19/2025 6:11 AM EDT Unspecified convulsions ([facility] V24, [facility] V28) 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 edema, unspecified eye ([facility] V24, [facility] V28) HEMOGLOBIN A1C Routine 03/19/2025 6:11 AM EDT Unspecified convulsions ([facility] V24, [facility] V28) 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 edema, unspecified eye ([facility]/HCC V24, [facility] V28) COMPREHENSIVE METABOLIC PANEL Routine 03/19/2025 6:11 AM EDT Unspecified convulsions ([facility] V24, [facility] V28) 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 edema, unspecified eye ([facility] V24, [facility] V28) documented in this encounter Results * (ABNORMAL) CBC auto differential (03/19/2025 6:11 AM EDT) [facility] WBC 6.2 4.8 - 10.8 K/mcL LAB [facility] RBC 3.90 3.80 - 4.80 M/mcL LAB HEMETOLOGY METHOD 03/19/2025 11:46 PM [facility] Hemoglobin 11.0(L) 11.5 - 16.0 g/dL LAB HEMETOLOGY METHOD 03/19/2025 11:46 PM T [facility] Hematocrit 36.7 35.0 - 47.0 % LAB HEMETOLOGY METHOD 03/19/2025 11:46 PM [facility] MCV 93.4 79.0 - 98.0 FL LAB HEMETOLOGY METHOD 03/19/2025 11:46 PM [facility] MCH 28.0 27.0 - 32.0 pcg LAB HEMETOLOGY METHOD 03/19/2025 11:46 PM EDT [facility] MCHC 30.0(L) 32.0 - 37.0 g/dL LAB HEMETOLOGY METHOD [facility] RDW 14.3 11.0 - 15.0 % LAB HEMETOLOGY METHOD 03/19/2025 11:46 PM [facility] Platelets 249 130 - 400 K/mcL LAB HEMETOLOGY METHOD [facility] MPV 11.0 7.0 - 11.0 FL LAB HEMETOLOGY METHOD 03/19/2025 11:46 PM [facility] NRBC 0.0 <1.0 % LAB HEMETOLOGY METHOD 03/19/2025 11:46 PM [facility] NRBC Absolute 0.00 <0.10 K/mcL LAB HEMETOLOGY METHOD 03/19/2025 11:46 PM [facility] Neutrophils Relative 76.5 % LAB HEMETOLOGY METHOD 03/19/2025 11:46 PM [facility] Lymphocytes Relative 16.1 % LAB HEMETOLOGY METHOD 03/19/2025 11:46 PM [facility] Monocytes Relative 6.9 % LAB HEMETOLOGY METHOD 03/19/2025 11:46 PM [facility] Eosinophils Relative 0.0 % LAB HEMETOLOGY METHOD 03/19/2025 11:46 PM [facility] Basophils Relative 0.3 % LAB HEMETOLOGY METHOD 03/19/2025 11:46 PM [facility] Immature Granulocytes Relative 0.2 % LAB HEMETOLOGY METHOD 03/19/2025 11:46 PM [facility] Neutrophils Absolute 4.77 1.50 - 7.00 K/mcL LAB HEMETOLOGY METHOD 03/19/2025 11:46 PM EDT [facility] Lymphocytes Absolute 1.00 1.00 - 5.00 K/mcL LAB HEMETOLOGY METHOD 03/19/2025 11:46 PM EDT [facility] Monocytes Absolute 0.43 0.20 - 1.00 K/mcL LAB HEMETOLOGY METHOD 03/19/2025 11:46 PM EDT [facility] Eosinophils Absolute 0.00 0.00 - 0.50 K/[facility] LAB HEMETOLOGY METHOD 03/19/2025 11:46 PM EDT [facility] Basophils Absolute 0.02 0.00 - 0.20 K/[facility] LAB HEMETOLOGY METHOD 03/19/2025 11:46 PM EDT [facility] Immature Granulocytes Absolute 0.01 0.00 - 0.03 K/[facility] LAB HEMETOLOGY METHOD 03/19/2025 11:46 PM EDT [facility] Blood Venous blood specimen / Unknown 03/19/2025 6:11 AM EDT 03/19/2025 6:36 AM EDT us Roby Roth MD LAB BLOOD ORDERABLES Final Resul t Performing Organization Address City/[facility]/ZIP Co de Phone Number [facility] [address] [place] [address], [place] [phone] * (ABNORMAL) Thyroid stimulating hormone (03/19/2025 6:11 AM EDT) TSH 0.11(L) 0.40 - 4.00 mcIU/mL LAB CHEMISTRY METHOD 03/20/2025 12:01 AM EDT [facility] Blood Venous blood specimen / Unknown 03/19/2025 6:11 AM EDT 03/19/2025 6:36 AM EDT us Roby Roth MD LAB BLOOD ORDERABLES Final Resul t [facility] [address] [place] [address], [place] [phone] * (ABNORMAL) Hemoglobin A1c (03/19/2025 6:11 AM EDT) [facility] Hemoglobin A1C 9.4(H) <6.5 % LAB CHEMISTRY METHOD 03/19/2025 1:44 PM EDT [facility] Mean Bld Glu Estim. 223 mg/dL LAB CHEMISTRY METHOD 03/19/2025 1:44 PM EDT [facility] Blood Venous blood specimen / Unknown 03/19/2025 6:11 AM EDT 03/19/2025 6:36 AM EDT Roby Roth MD LAB BLOOD ORDERABLES Final Resul t [facility] [address] [place] [address], * (ABNORMAL) Comprehensive metabolic panel (03/19/2025 6:11 AM EDT) [facility] Sodium 138 133 - 145 mmol/L LAB CHEMISTRY METHOD 03/19/2025 7:27 AM [facility] Potassium 4.8 3.5 - 5.5 mmol/L LAB CHEMISTRY METHOD 03/19/2025 7:27 AM [facility] Chloride 102 96 - 110 mmol/L LAB CHEMISTRY METHOD 03/19/2025 7:27 AM [facility] CO2 24 21 - 32 mmol/L LAB CHEMISTRY METHOD 03/19/2025 7:27 AM [facility] Anion Gap 12(H) 3 - 11 LAB CHEMISTRY METHOD 03/19/2025 7:27 AM [facility] Glucose 271(H) 70 - 100 mg/dL LAB CHEMISTRY METHOD 03/19/2025 7:27 AM [facility] BUN 26(H) 5 - 25 mg/dL LAB CHEMISTRY METHOD 03/19/2025 7:27 AM [facility] Creatinine 1.31(H) 0.50 - 1.10 mg/dL LAB CHEMISTRY METHOD 03/19/2025 7:27 AM [facility] eGFR 48(L) >=60 mL/min/1. 73m2 LAB CHEMISTRY METHOD 03/19/2025 7:27 AM [facility] Comment:Calculation based on the Chronic Kidney Disease Epidemiology Collaboration (CKD-EPI) equation refit without adjustment for race. BUN/Creatinine Ratio 19.8 LAB CHEMISTRY METHOD 03/19/2025 7:27 AM [facility] Calcium 10.7(H) 8.5 - 10.5 mg/dL LAB CHEMISTRY METHOD 03/19/2025 7:27 AM [facility] AST (SGOT) 12 10 - 42 unit/L LAB CHEMISTRY METHOD 03/19/2025 7:27 AM [facility] ALT (SGPT) 19 10 - 60 unit/L LAB CHEMISTRY METHOD 03/19/2025 7:27 AM [facility] Alkaline Phosphatase 194(H) 42 - 121 unit/L LAB CHEMISTRY METHOD 03/19/2025 7:27 AM [facility] Total Protein 8.5(H) 6.0 - 8.0 g/dL LAB CHEMISTRY METHOD 03/19/2025 7:27 AM [facility] Albumin 4.3 3.2 - 5.0 g/dL LAB CHEMISTRY METHOD 03/19/2025 7:27 AM [facility] Total Bilirubin 0.3 0.0 - 1.4 mg/dL LAB CHEMISTRY METHOD 03/19/2025 7:27 AM [facility] Blood Venous blood specimen / Unknown 03/19/2025 6:11 AM EDT 03/19/2025 6:36 AM EDT us Roby Roth MD LAB BLOOD ORDERABLES Final Resul t [facility] [address] [place] [address], documented in this encounter Visit Diagnoses Diagnosis Unspecified convulsions ([facility] V24, [facility] V28) 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 edema, unspecified eye ([facility] [place]24, [facility] V28) documented in this encounter Care Teams Research Test Engine Operator Relationship Specialty Start Date End Date Roby Roth MD [address] [place], [place] PCP - General Internal Medicine 09/11/24 documented as of this encounter
--- OUTSIDE RECORDS SUMMARY | 2025-07-18 13:28 | XMS_ITS | Encounter Summary ---
Author Organization [facility] Address [address] [place] [address] Care Team Providers Care Scientific Aide Name Role Phone Roby Roth MD Primary Care Provider [phone] Encounter Details Date Type Department Care Team (Late st Contact Info) Description 03/23/2025 Lab Requisition [facility] - Main Lab [address] [facility] [place] [address] Roby Roth MD [address] [place] [address] Dr [address] [place], [place] Other salvage determiner (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; Altered mental status, unspecified [...] DIFFERENTIAL Routine 03/23/2025 7:00 AM EDT Other halfway (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 Altered mental status, unspecified HALOPERIDOL LEVEL Routine 03/23/2025 7:0 0 AM EDT Other salvage determiner (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 Altered mental status, unspecified LEVETIRACETAM LEVEL Routine 03/23/2025 7 :00 AM EDT Other salvage determiner (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 Altered mental status, unspecified CBC AND DIFFERENTIAL Routine 03/23/2025 7:00 AM EDT Other salvage determiner (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 Altered mental status, unspecified THYROID STIMULATING HORMONE Routine 03/23/2025 7:00 AM EDT Other halfway (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 Altered mental status, unspecified AMMONIA Routine 03/23/2025 7:00 AM EDT Other halfway (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 Altered mental status, unspecified PHENYTOIN LEVEL, FREE Routine 03/23/2025 7:00 AM EDT Other salvage determiner (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 Altered mental status, unspecified documented in this encounter Results * (ABNORMAL) CBC auto differential (03/23/2025 7:00 AM EDT) [facility] WBC 3.6(L) 4.8 - 10.8 K/mcL LAB [...] LAB HEMETOLOGY METHOD 03/23/2025 8:33 AM EDT [facility] Basophils Absolute 0.01 0.00 - 0.20 K/mcL LAB HEMETOLOGY METHOD 03/23/2025 8:33 AM EDT [facility] Immature Granulocytes Absolute 0.01 0.00 - 0.03 K/[facility] LAB HEMETOLOGY METHOD 03/23/2025 8:33 AM EDT [facility] Blood Venous blood specimen / Unknown 03/23/2025 7:00 AM EDT 03/23/2025 7:43 AM EDT Roby Roth MD LAB BLOOD ORDERABLES Final Resul t [facility] [address] [place] [address], * Levetiracetam level (03/23/2025 7:00 AM EDT) Levetiracetam 36.1 3.0 - 60.0 ug/mL 03/25/2025 5:20 AM EDT [facility] Comment: Steady state trough serum or plasma levels following doses of 1000 to 3000 mg/Day: 3 to 37 ug/mL. The same dosage regimen will typically result in peak levels of 10 to 60 ug/mL, at approximately 1.5 hours post dose. If applicable, any drug confirmation testing reported here was developed and the performance characteristics determined by [facility]. This confirmation testing has not been cleared or approved by the FDA. The laboratory is regulated under CLIA as qualified to perform high-complexity testing. This test is used for patient testing purposes. It should not be regarded as investigational or for research. Test performed at [facility], [address] , [place] [address] Fatemeh Godfrey MD, PhD - Sports Centre Manager Blood Venous blood specimen / Unknown 03/23/2025 7:00 AM EDT 03/23/2025 7:43 AM EDT us Roby Roth MD LAB BLOOD ORDERABLES Final Resul t Performing Organization Address City/[facility]/ZIP Co de Phone Number [facility] [address] [place] [address] * (ABNORMAL) Haloperidol level (03/23/2025 7:00 AM EDT) Haloperidol 4(L) 5 - 15 ng/mL 03/31/2025 11:40 PM EDT [facility] Comment: This test was developed and its analytical performance characteristics have been determined by [employer]. It has not been cleared or approved by the FDA. This assay has been validated pursuant to the CLIA regulations and is used for clinical purposes. TEST PERFORMED AT: [facility] [address] [id number] EVAN MOSCOSO MD Blood Venous blood specimen / Unknown 03/23/2025 7:00 AM EDT 03/23/2025 7:43 AM EDT us Roby Roth MD LAB BLOOD ORDERABLES Final Resul t Performing Organization Address [facility] Co de Phone Number [facility] [address] [place] [address] * Ammonia (03/23/2025 7:00 AM EDT) Ammonia 23 11 - 35 mcmol/L LAB CHEMISTRY METHOD 03/23/2025 8:41 AM EDT [facility] Blood Venous blood specimen / Unknown 03/23/2025 7:00 AM EDT 03/23/2025 7:43 AM EDT us Roby Roth MD LAB BLOOD ORDERABLES Final Resul t Performing Organization Address City/[facility]/ZIP Co de Phone Number [facility] [address] [place] [address], [place] [phone] * (ABNORMAL) Thyroid stimulating hormone (03/23/2025 7:00 AM EDT) TSH 0.17(L) 0.40 - 4.00 mcIU/mL LAB CHEMISTRY METHOD 03/23/2025 9:50 AM EDT [facility] Blood Venous blood specimen / Unknown 03/23/2025 7:00 AM EDT 03/23/2025 7:43 AM EDT us Roby Roth MD LAB BLOOD ORDERABLES Final Resul t Performing Organization Address [facility] Co de Phone Number [facility] [address] [place] [address], [place] [phone] * (ABNORMAL) Phenytoin level free (03/23/2025 7:00 AM EDT) Phenytoin, Free (Dilantin) <0.8(L) 0.8 - 2.0 ug/mL 03/25/2025 1:11 PM EDT [facility] Comment: Phenytoin free toxic level: >3.0 ug/mL If applicable, any drug confirmation testing reported here was developed and the performance characteristics determined by [facility]. This confirmation testing has not been cleared or approved by the FDA. The laboratory is regulated under CLIA as qualified to perform high-complexity testing. This test is used for patient testing purposes. It should not be regarded as investigational or for research. Test performed at [facility], [address] , [place], [place] [id number] Fatemeh Godfrey MD, PhD - Sports Centre Manager Blood Venous blood specimen / Unknown 03/23/2025 7:00 AM EDT 03/23/2025 7:43 AM EDT us Roby Roth MD LAB BLOOD ORDERABLES Final Resul t Performing Organization Address [facility]/ZIP Co de Phone Number [facility] [address] [place] [address] documented in this encounter Visit Diagnoses Diagnosis Other salvage determiner (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 Altered mental status, unspecified documented in this encounter Care Teams Scientific Aide Relationship Specialty Start Date End Date Roby Roth MD [address] [place] [address] Dr [address] JOSÉ Guerrero PCP - General Internal Medicine 09/11/24 documented as of this encounter
--- OUTSIDE RECORDS SUMMARY | 2025-07-18 13:28 | XMS_ITS | Encounter Summary ---
Author Organization [facility] Address [address] [place] [address] Care Team Providers Care Instructor Product Inspection Name Role Phone Roby Roth MD Primary Care Provider [phone] Encounter Details Date Type Department Care Team (Latest Contact Info) Description 12/17/2024 Lab Requisition [facility] - Main Lab [address] [facility] [place] [address] Roby Roth MD [address] [place] [address] Dr [address] [place], [place] 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 edema, unspecified eye (CMS/HCC V24, CMS/[facility] V28) Social History Tobacco Use Types [...] Hold for add-ons. 12/17/2024 9:01 AM EDT [facility] ([facility]) [facility] Comment:Auto resulted. Blood Venous blood specimen / Unknown 12/17/2024 6:55 AM EDT 12/17/2024 7:32 AM EDT us Roby Roth MD LAB BLOOD ORDERABLES Final Resul t [facility] [address] [place] [address], [place] [phone] * (ABNORMAL) Complete blood count (12/17/2024 6:55 AM EDT) [facility] WBC 3.9(L) 4.8 - 10.8 K/mcL LAB HEMETOLOGY METHOD 12/17/2024 8:49 AM EDT [facility] RBC 3.70(L) 3.80 - 4.80 M/mcL LAB HEMETOLOGY METHOD 12/17/2024 8:[facility] Hemoglobin 10.7(L) 11.5 - 16.0 g/dL LAB HEMETOLOGY METHOD 12/17/2024 8:49 AM EDT [facility] Hematocrit 33.6(L) 35.0 - 47.0 % LAB HEMETOLOGY METHOD 12/17/2024 8:49 AM [facility] MCV 90.8 79.0 - 98.0 FL LAB HEMETOLOGY METHOD 12/17/2024 8:49 AM EDT [facility] MCH 28.9 27.0 - 32.0 pcg LAB HEMETOLOGY METHOD 12/17/2024 8:49 AM EDT [facility] MCHC 31.8(L) 32.0 - 37.0 g/dL LAB HEMETOLOGY METHOD 12/17/2024 8:49 AM [facility] RDW 14.5 11.0 - 15.0 % LAB HEMETOLOGY METHOD 12/17/2024 8:49 AM [facility] Platelets 213 130 - 400 K/mcL LAB HEMETOLOGY METHOD 12/17/2024 8:49 AM EDT [facility] MPV 10.9 7.0 - 11.0 FL LAB HEMETOLOGY METHOD 12/17/2024 8:49 AM EDT [facility] NRBC 0.0 <1.0 % LAB HEMETOLOGY METHOD 12/17/2024 8:49 AM EDT [facility] NRBC Absolute 0.00 <0.10 K/mcL LAB HEMETOLOGY METHOD 12/17/2024 8:49 AM EDT [facility] Blood Venous blood specimen / Unknown 12/17/2024 6:55 AM EDT 12/17/2024 7:32 AM EDT us Roby Roth MD LAB BLOOD ORDERABLES Final Resul t Performing Organization Address City/[facility]/ZIP Co de Phone Number [facility] [address] [place] [address], [place] [phone] * Vitamin D 25 hydroxy (12/17/2024 6:55 AM EDT) Vit D, 25-Hydroxy 58.7 30.0 - 80.0 ng/mL LAB CHEMISTRY METHOD 12/17/2024 10:53 AM EDT [facility] Blood Venous blood specimen / Unknown 12/17/2024 6:55 AM EDT 12/17/2024 7:32 AM EDT us Roby Roth MD LAB BLOOD ORDERABLES Final Resul t [facility] [address] [place] [address], [place] [phone] * (ABNORMAL) Thyroid stimulating hormone (12/17/2024 6:55 AM EDT) TSH 133.29(H) 0.40 - 4.00 mcIU/mL LAB CHEMISTRY METHOD 12/17/2024 1:07 PM EDT [facility] Comment:Results verified by repeat testing Blood Venous blood specimen / Unknown 12/17/2024 6:55 AM EDT 12/17/2024 7:32 AM EDT us Roby Roth MD LAB BLOOD ORDERABLES Final Resul t Performing Organization Address [facility]/ZIP Co de Phone Number [facility] [address] [place] [address], [place] [phone] * (ABNORMAL) Thyroxine free (12/17/2024 6:55 AM EDT) Free T4 0.39(L) 0.70 - 1.80 ng/dL LAB CHEMISTRY METHOD 12/17/2024 10:54 AM EDT [facility] Blood Venous blood specimen / Unknown 12/17/2024 6:55 AM EDT 12/17/2024 7:32 AM EDT us Roby Roth MD LAB BLOOD ORDERABLES Final Resul t Performing Organization Address [facility] de Phone Number [facility] [address] [place] [address], [place] [phone] * Levetiracetam level (12/17/2024 6:55 AM EDT) [...] the performance characteristics determined by [facility]. This confirmation testing has not been cleared or approved by the FDA. The laboratory is regulated under CLIA as qualified to perform high-complexity testing. This test is used for patient testing purposes. It should not be regarded as investigational or for research. Test performed at [facility], [address], [place] [address] Fatemeh Godfrey MD, PhD - Associate Dean Of Women Blood Venous blood specimen / Unknown 12/17/2024 6:55 AM EDT 12/17/2024 7:32 AM EDT us Roby Roth MD LAB BLOOD ORDERABLES Final Resul t [facility] [address] [place] [address] * (ABNORMAL) Hemoglobin A1c (12/17/2024 6:55 AM EDT) Hemoglobin A1C 8.8(H) <6.5 % LAB CHEMISTRY METHOD 12/17/2024 10:36 AM EDT [facility] Mean Bld Glu Estim. 206 mg/dL LAB CHEMISTRY METHOD 12/17/2024 10:36 AM EDT [facility] Blood Venous blood specimen / Unknown 12/17/2024 6:55 AM EDT 12/17/2024 7:32 AM EDT us Roby Roth MD LAB BLOOD ORDERABLES Final Resul t Performing Organization Address [facility]/ZIP Co de Phone Number [facility] [address] [place] [address], [place] [phone] * (ABNORMAL) Phenytoin level total (12/17/2024 6:55 AM EDT) Phenytoin Level 36.8(HH) 10.0 - 20.0 mcg/mL LAB CHEMISTRY METHOD 12/17/2024 10:06 AM EDT [facility] Comment:Results verified by repeat testing Blood Venous blood specimen / Unknown 12/17/2024 6:55 AM EDT 12/17/2024 7:32 AM EDT us Roby Roth MD LAB BLOOD ORDERABLES Final Resul t [facility] [address] [place] [address], [place] [phone] * Lipid panel with reflex to direct LDL (12/17/2024 6:55 AM EDT) Cholesterol 197 0 - 200 mg/dL LAB CHEMISTRY METHOD 12/17/2024 9:11 AM EDT [facility] Triglycerides 72 0 - 150 mg/dL LAB CHEMISTRY METHOD 12/17/2024 9:11 AM EDT [facility] HDL 103 >=40 mg/dL LAB CHEMISTRY METHOD 12/17/2024 9:11 AM EDT [facility] LDL Calculated 80 0 - 100 mg/dL LAB CHEMISTRY METHOD 12/17/2024 9:11 AM EDT [facility] VLDL Cholesterol Oskar 14.4 mg/dL LAB CHEMISTRY METHOD 12/17/2024 9:11 AM EDT [facility] Non HDL Chol. (LDL+VLDL) 94 <145 mg/dL LAB CHEMISTRY METHOD 12/17/2024 9:11 AM EDT [facility] Chol/HDL Ratio 1.9 0.0 - 4.4 LAB CHEMISTRY METHOD 12/17/2024 9:11 AM T [facility] Blood Venous blood specimen / Unknown 12/17/2024 6:55 AM EDT 12/17/2024 7:32 AM EDT us Roby Roth MD LAB BLOOD ORDERABLES Final Resul t [facility] [address] [place] [address], [place] [phone] * (ABNORMAL) Comprehensive metabolic panel (12/17/2024 6:55 AM EDT) Sodium 133 133 - 145 mmol/L LAB CHEMISTRY METHOD 12/17/2024 9:11 AM [facility] Potassium 4.5 3.5 - 5.5 mmol/L LAB CHEMISTRY METHOD 12/17/2024 9:11 AM [facility] Chloride 100 96 - 110 mmol/L LAB CHEMISTRY METHOD 12/17/2024 9:11 AM [facility] CO2 28 21 - 32 mmol/L LAB CHEMISTRY METHOD 12/17/2024 9:11 AM [facility] Anion Gap 5 3 - 11 LAB CHEMISTRY METHOD 12/17/2024 9:11 AM [facility] Glucose 173(H) 70 - 100 mg/dL LAB CHEMISTRY METHOD 12/17/2024 9:11 AM [facility] BUN 28(H) 5 - 25 mg/dL LAB CHEMISTRY METHOD 12/17/2024 9:11 AM [facility] Creatinine 1.49(H) 0.50 - 1.10 mg/dL LAB CHEMISTRY METHOD 12/17/2024 9:11 AM [facility] eGFR 41(L) >=60 mL/min/1. 73m2 LAB CHEMISTRY METHOD 12/17/2024 9:11 AM [facility] Comment:Calculation based on the Chronic Kidney Disease Epidemiology Collaboration (CKD-EPI) equation refit without adjustment for race. BUN/Creatinine Ratio 18.8 LAB CHEMISTRY METHOD 12/17/2024 9:11 AM [facility] Calcium 9.8 8.5 - 10.5 mg/dL LAB CHEMISTRY METHOD 12/17/2024 9:11 AM [facility] AST (SGOT) 40 10 - 42 unit/L LAB CHEMISTRY METHOD 12/17/2024 9:11 AM [facility] ALT (SGPT) 50 10 - 60 unit/L LAB CHEMISTRY METHOD 12/17/2024 9:11 AM [facility] Alkaline Phosphatase 192(H) 42 - 121 unit/L LAB CHEMISTRY METHOD 12/17/2024 9:11 AM EDT [facility] Total Protein 8.8(H) 6.0 - 8.0 g/dL LAB CHEMISTRY METHOD 12/17/2024 9:11 AM EDT [facility] Albumin 4.4 3.2 - 5.0 g/dL LAB CHEMISTRY METHOD 12/17/2024 9:11 AM EDT [facility] Total Bilirubin 0.2 0.0 - 1.4 mg/dL LAB CHEMISTRY METHOD 12/17/2024 9:11 AM EDT [facility] Blood Venous blood specimen / Unknown 12/17/2024 6:55 AM EDT 12/17/2024 7:32 AM EDT us Roby Roth MD LAB BLOOD ORDERABLES Final Resul t [facility] [address] [place] [address], documented in this encounter Visit Diagnoses Diagnosis 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 edema, unspecified eye (CMS/HCC V24, CMS/HCC V28) documented in this encounter Care Teams Instructor Product Inspection Relationship Specialty Start Date End Date Royb Roth MD [address] [place], [place] PCP - General Internal Medicine 09/11/24 documented as of this encounter
--- OUTSIDE RECORDS SUMMARY | 2025-07-18 13:28 | XMS_ITS | Encounter Summary ---
Author Organization [facility] Address [address] [place] [address] Care Team Providers Care Point Of Care Specialist Name Role Phone Roby Roth MD Primary Care Provider [phone] Encounter Details Date Type Department Care Team (Late st Contact Info) Description 05/04/2025 Lab Requisition [facility] - Main Lab [address] [place] [address] Roby Roth MD [address] [place] [address] Dr [address] [place], [place] Other half-way (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 Social History Tobacco Use [...] HORMONE Routine 05/04/2025 6:40 AM EDT Other termite control service representative (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 documented in this encounter Results * Thyroid stimulating hormone (05/04/2025 6:40 AM EDT) TSH 0.40 0.40 - 4.00 mcIU/mL LAB CHEMISTRY METHOD 05/04/2025 9:43 AM EDT [facility] Blood Venous blood specimen / Unknown 05/04/2025 6:40 AM EDT 05/04/2025 7:27 AM EDT us Roby Roth MD LAB BLOOD ORDERABLES Final Resul t [facility] [address] [place] [address], documented in this encounter Visit Diagnoses Diagnosis Other half-way (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 documented in this encounter Care Teams Point Of Care Specialist Relationship Specialty Start Date End Date Roby Roth MD [address] [place] [address] Dr [address] JOSÉ Guerrero PCP - General Internal Medicine 09/11/24 documented as of this encounter
--- OUTSIDE RECORDS SUMMARY | 2025-07-18 13:28 | XMS_ITS | Encounter Summary ---
Author Organization [facility] Address [address] [place] [address] Care Team Providers Care Nursery School Attendant Name Role Phone Roby Roth MD Primary Care Provider [phone] Encounter Details Date Type Department Care Team (Late st Contact Info) Description 07/04/2025 Lab Requisition [facility] - Main Lab [address] [facility] [place] [address] Roby Roth MD [address] [place] [address] [address] [place], [place] Other custodial (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; Unspecified convulsions (CMS/HCC V24, [...] Associated Diagnosis Comments PHENYTOIN LEVEL, TOTAL Routine 07/04/2025 6:42 AM EST Other intermediate project manager (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 Unspecified convulsions (CMS/HCC V24, CMS/HCC V28) documented in this encounter Results * Phenytoin level total (07/04/2025 6:42 AM EST) Phenytoin Level 13.8 10.0 - 20.0 mcg/mL LAB CHEMISTRY METHOD 07/04/2025 8:25 AM EST [facility] ([facility]) [facility] Blood Venous blood specimen / Unknown 07/04/2025 6:42 AM EST 07/04/2025 7:38 AM EST us Roby Roth MD LAB BLOOD ORDERABLES Final Resul t [facility] ([facility] [address] [place] [address], documented in this encounter Visit Diagnoses Diagnosis Other custodial (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 Unspecified convulsions (CMS/HCC V24, CMS/HCC V28) documented in this encounter Care Teams Nursery School Attendant Relationship Specialty Start Date End Date Roby Roth MD [address] [facility] [address] [place], [place] PCP - General Internal Medicine 09/11/24 documented as of this encounter
--- OUTSIDE RECORDS SUMMARY | 2025-07-18 13:28 | XMS_ITS | Encounter Summary ---
Author Organization [facility] Address [address] [place] [address] Care Team Providers Care Construction Project Engineer Name Role Phone Roby Roth MD Primary Care Provider [phone] Encounter Details Date Type Department Care Team (Latest Contact Info) Description 06/15/2025 Lab Requisition [facility] - Main Lab 299 [facility] [place] [address] Roby Roth MD [address] [place] [address] [address] [place], [place] Unspecified convulsions (CMS/HCC V24, CMS/HCC V28); Hypothyroidism, unspecified; Type 2 diabetes mellitus with [...] Associated Diagnosis Comments THYROID STIMULATING HORMONE Routine 06/15/2025 6:30 AM EDT Unspecified convulsions (CMS/HCC V24, CMS/HCC V28) Hypothyroidism, unspecified 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 edema, unspecified eye (CMS/HCC V24, CMS/HCC V28) PHENYTOIN LEVEL, TOTAL Routine 06/15/2025 6:30 AM EDT Unspecified convulsions (CMS/HCC V24, CMS/HCC V28) Hypothyroidism, unspecified 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 edema, unspecified eye (CMS/HCC V24, CMS/HCC V28) BASIC METABOLIC PANEL Routine 06/15/2025 6:30 AM EDT Unspecified convulsions ([facility] V24, [facility] V28) Hypothyroidism, unspecified 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 edema, unspecified eye ([facility] V24, [facility] V28) documented in this encounter Results * (ABNORMAL) Basic metabolic panel (06/15/2025 6:30 AM EDT) Sodium 135 133 - 145 mmol/L LAB CHEMISTRY METHOD 06/15/2025 8:49 PM [facility] Potassium 3.9 3.5 - 5.5 mmol/L LAB CHEMISTRY METHOD 06/15/2025 8:49 PM [facility] Chloride 100 96 - 110 mmol/L LAB CHEMISTRY METHOD 06/15/2025 8:49 PM [facility] CO2 24 21 - 32 mmol/L LAB CHEMISTRY METHOD 06/15/2025 8:49 PM [facility] Anion Gap 11 3 - 11 LAB CHEMISTRY METHOD 06/15/2025 8:49 PM [facility] Glucose 302(H) 70 - 100 mg/dL LAB CHEMISTRY METHOD 06/15/2025 8:49 PM [facility] BUN 24 5 - 25 mg/dL LAB CHEMISTRY METHOD 06/15/2025 8:49 PM [facility] Creatinine 1.41(H) 0.50 - 1.10 mg/dL LAB CHEMISTRY METHOD 06/15/2025 8:49 PM [facility] eGFR 44(L) >=60 mL/min/1. 73m2 LAB CHEMISTRY METHOD 06/15/2025 8:49 PM [facility] Comment:Calculation based on the Chronic Kidney Disease Epidemiology Collaboration (CKD-EPI) equation refit without adjustment for race. BUN/Creatinine Ratio 17.0 LAB CHEMISTRY METHOD 06/15/2025 8:49 PM EDT [facility] Calcium 9.7 8.5 - 10.5 mg/dL LAB CHEMISTRY METHOD 06/15/2025 8:49 PM EDT [facility] Blood Venous blood specimen / Unknown 06/15/2025 6:30 AM EDT 06/15/2025 7:20 AM EDT us Roby Roth MD LAB BLOOD ORDERABLES Final Resul t Performing Organization Address City/[facility] Co de Phone Number [facility] [address] [place] [address], [place] [phone] * Thyroid stimulating hormone (06/15/2025 6:30 AM EDT) TSH 2.10 0.40 - 4.00 mcIU/mL LAB CHEMISTRY METHOD 06/15/2025 8:23 PM EDT [facility] Blood Venous blood specimen / Unknown 06/15/2025 6:30 AM EDT 06/15/2025 7:20 AM EDT us Roby Roth MD LAB BLOOD ORDERABLES Final Resul t Performing Organization Address [facility] de Phone Number [facility] [address] [place] [address], [place] [phone] * Phenytoin level total (06/15/2025 6:30 AM EDT) Phenytoin Level 12.6 10.0 - 20.0 mcg/mL LAB CHEMISTRY METHOD 06/15/2025 8:03 AM EDT [facility] Blood Venous blood specimen / Unknown 06/15/2025 6:30 AM EDT 06/15/2025 7:20 AM EDT us Roby Roth MD LAB BLOOD ORDERABLES Final Resul t Performing Organization Address City/[facility]/ZIP Co de Phone Number [facility] [address] [place] [address], documented in this encounter Visit Diagnoses Diagnosis Unspecified convulsions ([facility] V24, [facility] V28) Hypothyroidism, unspecified 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 edema, unspecified eye ([facility] V24, [facility] V28) documented in this encounter Care Teams Construction Project Engineer Relationship Specialty Start Date End Date Roby Roth MD [address] [place] [address] Dr [address] [place], [place] PCP - General Internal Medicine 09/11/24 documented as of this encounter
--- OUTSIDE RECORDS SUMMARY | 2025-07-18 13:28 | XMS_ITS | Encounter Summary ---
Author Organization [facility] Address [address] [place] [address] Care Team Providers Care Teenage Babysitter Name Role Phone Roby Roth MD Primary Care Provider [phone] Encounter Details Date Type Department Care Team (Late st Contact Info) Description 04/30/2025 Lab Requisition [facility] - Main Lab [address] [facility] [place] [address] Roby Roth MD [address] [place] [address] [address] [place] [address] Traumatic subarachnoid hemorrhage without loss of consciousness, [...] V24) documented in this encounter Care Teams Teenage Babysitter Relationship Specialty Start Date End Date Roby Roth MD [address] [place] [address] Dr [address] [place], [place] PCP - General Internal Medicine 09/11/24 documented as of this encounter
--- OUTSIDE RECORDS SUMMARY | 2025-07-18 13:28 | XMS_ITS | Encounter Summary ---
Author Organization [facility] Address [address] [place] [address] Care Team Providers Care Hematology Supervisor Name Role Phone Roby Roth MD Primary Care Provider [phone] Encounter Details Date Type Department Care Team (Late st Contact Info) Description 09/04/2024 Lab Requisition [facility] - Main Lab [address] [place] [address] Roby Roth MD [address] [place] [address] [address] [place], [place] Traumatic subarachnoid hemorrhage without loss of [...] LAB CHEMISTRY METHOD 09/04/2024 8:14 AM EST [facility] ([facility]) [facility] Blood Venous blood specimen / Unknown 09/04/2024 6:38 AM EST 09/04/2024 7:13 AM EST us Roby Roth MD LAB BLOOD ORDERABLES Final Resul t [facility] HOSPITAL LAB [address] [place] [address], documented in this encounter Visit Diagnoses Diagnosis Traumatic subarachnoid hemorrhage without loss of consciousness, sequela (CMS/HCC V24) documented in this encounter Care Teams Hematology Supervisor Relationship Specialty Start Date End Date Roby Roth MD [address] [place] [address] Dr [address] [place], [place] PCP - General Internal Medicine 09/11/24 documented as of this encounter
--- OUTSIDE RECORDS SUMMARY | 2025-07-18 13:28 | XMS_ITS | Encounter Summary ---
Author Organization [facility] Address [address] [place] [address] Care Team Providers Care Canvas Shop Laborer Name Role Phone Roby Roth MD Primary Care Provider [phone] Encounter Details Date Type Department Care Team (Latest Contact Info) Description 06/09/2025 Lab Requisition [facility] - Main Lab [address] [facility] [place] [address] Roby Roth MD [address] [place] [address] [address] [place] [address] 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 [...] injury documented in this encounter Care Teams Canvas Shop Laborer Relationship Specialty Start Date End Date Roby Roth MD [address] [place] [address] [address] [place], [place] PCP - General Internal Medicine 09/11/24 documented as of this encounter
--- OUTSIDE RECORDS SUMMARY | 2025-07-18 13:28 | XMS_ITS | Encounter Summary ---
Author Organization [facility] Address [address] [place] [address] Care Team Providers Care Iron Worker Foreman Name Role Phone Roby Roth MD Primary Care Provider [phone] Encounter Details Date Type Department Care Team (Late st Contact Info) Description 05/02/2025 Lab Requisition [facility] - Main Lab [address] [place] [address] Roby Roth MD [address] [place] [address] [address] [place], [place] Traumatic subarachnoid hemorrhage without loss of consciousness, sequela ([facility] V24); Encounter for therapeutic drug level [...] consciousness, sequela ([facility] V24) Encounter for therapeutic drug level monitoring PHENYTOIN LEVEL, TOTAL STAT 05/02/2025 12:00 AM EDT Traumatic subarachnoid hemorrhage without loss of consciousness, sequela ([facility] V24) Encounter for therapeutic drug level monitoring documented in this encounter Results * Phenytoin level total (05/02/2025 12:00 AM EDT) Phenytoin Level 10.4 10.0 - 20.0 mcg/mL LAB CHEMISTRY METHOD 05/02/2025 10:42 PM EDT [facility] Blood Venous blood specimen / Unknown 05/02/2025 05/02/2025 10:13 PM EDT us Roby Roth MD LAB BLOOD ORDERABLES Final Resul t Performing Organization Address [facility]/ZIP Co de Phone Number [facility] [address] [place] [address], [place] [phone] * (ABNORMAL) Thyroid stimulating hormone (05/02/2025 12:00 AM EDT) TSH 0.21(L) 0.40 - 4.00 mcIU/mL LAB CHEMISTRY METHOD 05/02/2025 11:03 PM EDT [facility] Blood Venous blood specimen / Unknown 05/02/2025 05/02/2025 10:13 PM EDT us Roby Roth MD LAB BLOOD ORDERABLES Final Resul t Performing Organization Address City/[facility]/ZIP Co de Phone Number [facility] [address] [place] [address], [place] [phone] documented in this encounter Visit Diagnoses Diagnosis Traumatic subarachnoid hemorrhage without loss of consciousness, sequela (CMS/HCC V24) Encounter for therapeutic drug level monitoring documented in this encounter Care Teams Iron Worker Foreman Relationship Specialty Start Date End Date Roby Roth MD [address] [place] [address] PCP - General Internal Medicine 09/11/24 documented as of this encounter
--- OUTSIDE RECORDS SUMMARY | 2025-07-18 13:28 | XMS_ITS | Encounter Summary ---
Author Organization [facility] Address [address] [place] [address] Care Team Providers Care Slot Machine Mechanic Name Role Phone Roby Roth MD Primary Care Provider [phone] Encounter Details Date Type Department Care Team (Latest Contact Info) Description 04/23/2025 Lab Requisition [facility] - Main Lab 299 [facility] [place] [address] Roby Roth MD [address] [place] [address] [address] [place], [place] 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 edema, unspecified eye (CMS/HCC V24, [facility] V28) Social History Tobacco Use Types [...] without macular edema, unspecified eye (CMS/HCC V24, [facility] V28) documented in this encounter Care Teams Slot Machine Mechanic Relationship Specialty Start Date End Date Roby Roth MD [address] [place] [address] Dr [address] [place], [place] PCP - General Internal Medicine 09/11/24 documented as of this encounter
--- OUTSIDE RECORDS SUMMARY | 2025-07-18 13:28 | XMS_ITS | Encounter Summary ---
Author Organization [facility] Address [address] [place] [address] Care Team Providers Care Hand Gluer And Slicer Name Role Phone Roby Roth MD Primary Care Provider [phone] Encounter Details Date Type Department Care Team (Late st Contact Info) Description 12/29/2024 Lab Requisition [facility] - Main Lab [address] [place] [address] Roby Roth MD [address] [place] [address] [address] [place], [place] Hypothyroidism, unspecified Social History Tobacco Use [...] LAB CHEMISTRY METHOD 12/29/2024 9:15 AM EDT [facility] ([facility]) [facility] Blood Venous blood specimen / Unknown 12/29/2024 6:40 AM EDT 12/29/2024 7:07 AM EDT us Roby Roth MD LAB BLOOD ORDERABLES Final Resul t Performing Organization Address [place] Co de Phone Number [facility] [address] [place] [address], [place] [phone] * (ABNORMAL) Phenytoin level total (12/29/2024 6:40 AM EDT) Phenytoin Level 37.4(HH) 10.0 - 20.0 mcg/mL LAB CHEMISTRY METHOD 12/29/2024 8:13 AM EDT [facility] Blood Venous blood specimen / Unknown 12/29/2024 6:40 AM EDT 12/29/2024 7:07 AM EDT Roby Roth MD LAB BLOOD ORDERABLES Final Resul t Performing Organization Address [place] Co de Phone Number [facility] [address] [place] [address], [place] [phone] documented in this encounter Visit Diagnoses Diagnosis Hypothyroidism, unspecified documented in this encounter Care Teams Hand Gluer And Slicer Relationship Specialty Start Date End Date Roby Roth MD [address] [facility] [address] [place], [place] PCP - General Internal Medicine 09/11/24 documented as of this encounter
--- OUTSIDE RECORDS SUMMARY | 2025-07-18 13:28 | XMS_ITS | Encounter Summary ---
Author Organization [facility] Address [address] [place] [address] Care Team Providers Care Digital Developer Name Role Phone Roby Roth MD Primary Care Provider [phone] Encounter Details Date Type Department Care Team (Late st Contact Info) Description 12/24/2024 Lab Requisition [facility] - Main Lab [address] [place] [address] Roby Roth MD [address] [place] [address] [address] [place], [place] Hypothyroidism, unspecified Social History Tobacco Use [...] LAB CHEMISTRY METHOD 12/24/2024 10:24 AM EDT [facility] Blood Venous blood specimen / Unknown 12/24/2024 6:55 AM EDT 12/24/2024 7:29 AM EDT us Roby Roth MD LAB BLOOD ORDERABLES Final Resul t [facility] [address] [place] [address], documented in this encounter Visit Diagnoses Diagnosis Hypothyroidism, unspecified documented in this encounter Care Teams Digital Developer Relationship Specialty Start Date End Date Roby Roth MD [address] [place] [address] [address] [place], [place] PCP - General Internal Medicine 09/11/24 documented as of this encounter
--- OUTSIDE RECORDS SUMMARY | 2025-07-18 13:28 | XMS_ITS | Encounter Summary ---
Author Organization [facility] Address [address] [place] [address] Care Team Providers Care Tax Preparer Name Role Phone Roby Roth MD Primary Care Provider [phone] Encounter Details Date Type Department Care Team (Late st Contact Info) Description 01/05/2025 Lab Requisition [facility] - Main Lab [address] [facility] [place] [address] Roby Roth MD [address] [place] [address] [address] [place], [place] Epilepsy, unspecified, not intractable, with status [...] LAB CHEMISTRY METHOD 01/05/2025 9:18 AM EDT [facility] ([facility]) [facility] Blood Venous blood specimen / Unknown 01/05/2025 7:05 AM EDT 01/05/2025 7:32 AM EDT us Roby Roth MD LAB BLOOD ORDERABLES Final Resul t [facility] ([facility]) [facility] [address] [place] [address], documented in this encounter Visit Diagnoses Diagnosis Epilepsy, unspecified, not intractable, with status epilepticus (CMS/HCC V24, CMS/HCC V28) Conversion disorder with seizures or convulsions documented in this encounter Care Teams Tax Preparer Relationship Specialty Start Date End Date Roby Roth MD [address] [place] [address] [address] [place], [place] PCP - General Internal Medicine 09/11/24 documented as of this encounter
--- OUTSIDE RECORDS SUMMARY | 2025-07-18 13:28 | XMS_ITS | Encounter Summary ---
Author Organization [facility] Address [address] [place] [address] Care Team Providers Care Shipping Technician Name Role Phone Roby Roth MD Primary Care Provider [phone] Encounter Details Date Type Department Care Team (Late st Contact Info) Description 07/16/2025 Lab Requisition [facility] - Main Lab [address] [place] [address] Roby Roth MD [address] [place] [address] [address] [place], [place] Unspecified convulsions (CMS/HCC V24, CMS/HCC V28) [...] Associated Diagnosis Comments PHENYTOIN LEVEL, TOTAL Routine 07/16/2025 4:51 AM EST Unspecified convulsions (CMS/HCC V24, CMS/HCC V28) documented in this encounter Results * Phenytoin level total (07/16/2025 4:51 AM EST) Phenytoin Level 12.4 10.0 - 20.0 mcg/mL 07/16/2025 8:08 AM EST [facility] ([facility] Blood Venous blood specimen / Unknown 07/16/2025 4:51 AM EST 07/16/2025 6:58 AM EST us Roby Roth MD LAB BLOOD ORDERABLES Final Resul t [facility] ([facility]) HOSPITAL LAB [address] [place] [address], documented in this encounter Visit Diagnoses Diagnosis Unspecified convulsions (CMS/HCC V24, CMS/HCC V28) documented in this encounter Care Teams Shipping Technician Relationship Specialty Start Date End Date Roby Roth MD [address] [place] [address] Dr [address] [place], [place] PCP - General Internal Medicine 09/11/24 documented as of this encounter
--- OUTSIDE RECORDS SUMMARY | 2025-07-18 13:28 | XMS_ITS | Encounter Summary ---
Author Organization [facility] Address [address] [place] [address] Care Team Providers Care Business Systems Technician Name Role Phone Roby Roth MD Primary Care Provider [phone] Encounter Details Date Type Department Care Team (Latest Contact Info) Description 06/10/[address] [facility] - Main Lab [address] [facility] [place] [address] Roby Roth MD [address] [place] [address] Dr [address] [place], [place] Traumatic subarachnoid hemorrhage without loss of consciousness, sequela (CMS/[facility] V24); Personal history of traumatic brain injury; Hypothyroidism, unspecified; 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 edema, unspecified eye (CMS/HCC V24, CMS/[facility] V28) Social History Tobacco Use Types [...] subarachnoid hemorrhage without loss of consciousness, sequela ([facility]/HCC V24) Personal history of traumatic brain injury Hypothyroidism, unspecified 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 edema, unspecified eye (CMS/HCC V24, CMS/[facility] V28) HEMOGLOBIN A1C Routine 06/10/2025 6:35 AM EDT Traumatic subarachnoid hemorrhage without loss of consciousness, sequela ([facility] V24) Personal history of traumatic brain injury Hypothyroidism, unspecified 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 edema, unspecified eye (CMS/HCC V24, [facility] V28) PHENYTOIN LEVEL, TOTAL Routine 06/10/2025 6:35 AM EDT Traumatic subarachnoid hemorrhage without loss of consciousness, sequela ([facility] V24) Personal history of traumatic brain injury Hypothyroidism, unspecified 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 edema, unspecified eye ([facility] V24, [facility] V28) COMPREHENSIVE METABOLIC PANEL Routine 06/10/2025 6:35 AM EDT Traumatic subarachnoid hemorrhage without loss of consciousness, sequela ([facility] V24) Personal history of traumatic brain injury Hypothyroidism, unspecified 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 edema, unspecified eye ([facility] V24, [facility] V28) documented in this encounter Results * (ABNORMAL) Hemoglobin A1c (06/10/2025 6:35 AM EDT) Hemoglobin A1C 9.3(H) <6.5 % LAB CHEMISTRY METHOD 06/10/2025 10:58 AM EDT [facility] Mean Bld Glu Estim. 220 mg/dL LAB CHEMISTRY METHOD 06/10/2025 10:58 AM EDT [facility] Blood Venous blood specimen / Unknown 06/10/2025 6:35 AM EDT 06/10/2025 7:22 AM EDT us Roby Roth MD LAB BLOOD ORDERABLES Final Resul t [facility] [address] [place] [address], * Phenytoin level total (06/10/2025 6:35 AM EDT) Pathologist [facility] Phenytoin Level 14.2 10.0 - 20.0 mcg/mL LAB CHEMISTRY METHOD 06/10/2025 8:30 AM EDT [facility] Blood Venous blood specimen / Unknown 06/10/2025 6:35 AM EDT 06/10/2025 7:22 AM EDT us Roby Roth MD LAB BLOOD ORDERABLES Final Resul t [facility] [address] [place] [address], [place] [phone] * Lipid panel with reflex to direct LDL (06/10/2025 6:35 AM EDT) Cholesterol 174 0 - 200 mg/dL LAB CHEMISTRY METHOD 06/10/2025 8:30 AM EDT [facility] Triglycerides 41 0 - 150 mg/dL LAB CHEMISTRY METHOD 06/10/2025 8:30 AM EDT [facility] HDL 100 >=40 mg/dL LAB CHEMISTRY METHOD 06/10/2025 8:30 AM EDT [facility] LDL Calculated 66 0 - 100 mg/dL LAB CHEMISTRY METHOD 06/10/2025 8:30 AM EDT [facility] Comment:Estimated LDL Calcul ated using equation: Total cholesterol - HDL cholesterol - (Triglycerides/5) VLDL Cholesterol Oskar 8.2 mg/dL LAB CHEMISTRY METHOD 06/10/2025 8:30 AM EDT [facility] Non HDL Chol. (LDL+VLDL) 74 <145 mg/dL LAB CHEMISTRY METHOD 06/10/2025 8:30 AM EDT [facility] Chol/HDL Ratio 1.7 0.0 - 4.4 LAB CHEMISTRY METHOD 06/10/2025 8:30 AM EDT [facility] Blood Venous blood specimen / Unknown 06/10/2025 6:35 AM EDT 06/10/2025 7:22 AM EDT us Roby Roth MD LAB BLOOD ORDERABLES Final Resul t [facility] [address] [place] [address], [place] [phone] * (ABNORMAL) Comprehensive metabolic panel (06/10/2025 6:35 AM EDT) Sodium 136 133 - 145 mmol/L LAB CHEMISTRY METHOD 06/10/2025 8:30 AM [facility] Potassium 4.9 3.5 - 5.5 mmol/L LAB CHEMISTRY METHOD 06/10/2025 8:30 AM [facility] Chloride 103 96 - 110 mmol/L LAB CHEMISTRY METHOD 06/10/2025 8:30 AM [facility] CO2 26 21 - 32 mmol/L LAB CHEMISTRY METHOD 06/10/2025 8:30 AM [facility] Anion Gap 7 3 - 11 LAB CHEMISTRY METHOD 06/10/2025 8:30 AM [facility] Glucose 68(L) 70 - 100 mg/dL LAB CHEMISTRY METHOD 06/10/2025 8:30 AM [facility] BUN 37(H) 5 - 25 mg/dL LAB CHEMISTRY METHOD 06/10/2025 8:30 AM [facility] Creatinine 1.26(H) 0.50 - 1.10 mg/dL LAB CHEMISTRY METHOD 06/10/2025 8:30 AM [facility] eGFR 51(L) >=60 mL/min/1. 73m2 LAB CHEMISTRY METHOD 06/10/2025 8:30 AM [facility] Comment:Calculation based on the Chronic Kidney Disease Epidemiology Collaboration (CKD-EPI) equation refit without adjustment for race. BUN/Creatinine Ratio 29.4 LAB CHEMISTRY METHOD 06/10/2025 8:30 AM [facility] Calcium 10.2 8.5 - 10.5 mg/dL LAB CHEMISTRY METHOD 06/10/2025 8:30 AM [facility] AST (SGOT) 25 10 - 42 unit/L LAB CHEMISTRY METHOD 06/10/2025 8:30 AM EDT [facility] ALT (SGPT) 32 10 - 60 unit/L LAB CHEMISTRY METHOD 06/10/2025 8:30 AM EDT [facility] Alkaline Phosphatase 181(H) 42 - 121 unit/L LAB CHEMISTRY METHOD 06/10/2025 8:30 AM EDT [facility] Total Protein 8.2(H) 6.0 - 8.0 g/dL LAB CHEMISTRY METHOD 06/10/2025 8:30 AM EDT [facility] Albumin 3.9 3.2 - 5.0 g/dL LAB CHEMISTRY METHOD 06/10/2025 8:30 AM EDT [facility] Total Bilirubin 0.1 0.0 - 1.4 mg/dL LAB CHEMISTRY METHOD 06/10/2025 8:30 AM EDT [facility] Blood Venous blood specimen / Unknown 06/10/2025 6:35 AM EDT 06/10/2025 7:22 AM EDT us Roby Roth MD LAB BLOOD ORDERABLES Final Resul t [facility] [address] [place] [address], documented in this encounter Visit Diagnoses Diagnosis Traumatic subarachnoid hemorrhage without loss of consciousness, sequela (CMS/HCC V24) Personal history of traumatic brain injury Hypothyroidism, unspecified 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 edema, unspecified eye (CMS/HCC V24, CMS/HCC V28) documented in this encounter Care Teams Business Systems Technician Relationship Specialty Start Date End Date Roby Roth MD [address] [place] [address] Dr [address] [place] [address] PCP - General Internal Medicine 09/11/24 documented as of this encounter
--- OUTSIDE RECORDS SUMMARY | 2025-07-18 13:28 | XMS_ITS | Encounter Summary ---
Author Organization [facility] Address [address] [place] [address] Care Team Providers Care 3Rd Pressman Name Role Phone Roby Roth MD Primary Care Provider [phone] Encounter Details Date Type Department Care Team (Latest Contact Info) Description 04/25/2025 Lab Requisition [facility] - Main Lab 299 [facility] [employer] [place] [address] Roby Roth MD [address] [place] [address] Dr [address] [place], [place] 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 edema, unspecified eye (CMS/[facility] V24, CMS/[facility] V28) Social History Tobacco Use [...] without macular edema, unspecified eye (CMS/HCC V24, CMS/[facility] V28) PHENYTOIN LEVEL, TOTAL STAT 04/25/2025 1:15 PM EDT 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 edema, unspecified eye (CMS/HCC V24, CMS/[facility] V28) documented in this encounter Results * Thyroid stimulating hormone (04/25/2025 1:15 PM EDT) TSH 0.47 0.40 - 4.00 mcIU/mL LAB CHEMISTRY METHOD 04/25/2025 3:20 PM EDT [facility] Blood Venous blood specimen / Unknown 04/25/2025 1:15 PM EDT 04/25/2025 2:07 PM EDT Roby Roth MD LAB BLOOD ORDERABLES Final Resul t Performing Organization Address City/[facility]/ZIP Co de Phone Number [facility] [address] [place] [address], [place] [phone] * Phenytoin level total (04/25/2025 1:15 PM EDT) Phenytoin Level 14.1 10.0 - 20.0 mcg/mL LAB CHEMISTRY METHOD 04/25/2025 2:58 PM EDT [facility] Blood Venous blood specimen / Unknown 04/25/2025 1:15 PM EDT 04/25/2025 2:07 PM EDT Roby Roth MD LAB BLOOD ORDERABLES Final Resul t Performing Organization Address [facility]/ZIP Co de Phone Number [facility] [address] [place] [address], [place] [phone] documented in this encounter Visit Diagnoses Diagnosis 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 edema, unspecified eye (CMS/HCC V24, CMS/HCC V28) documented in this encounter Care Teams 3Rd Pressman Relationship Specialty Start Date End Date Roby Roth MD [address] [place] [address] Dr Raciel Guerrero [place] PCP - General Internal Medicine 09/11/24 documented as of this encounter
--- OUTSIDE RECORDS SUMMARY | 2025-07-18 13:29 | XMS_ITS | Encounter Summary ---
Author Organization [facility] Address [address] [place] [address] Care Team Providers Care Crime Victim Specialist Name Role Phone Roby Roth MD Primary Care Provider [phone] Encounter Details Date Type Department Care Team (Late st Contact Info) Description 03/13/2025 Lab Requisition [facility] - Main Lab [address] [place] [address] Roby Roth MD [address] [place] [address] Dr [address] [place], [place] Unspecified convulsions (CMS/HCC V24, CMS/HCC V28) [...] LAB CHEMISTRY METHOD 03/13/2025 11:49 AM EDT [facility] ([facility]) [facility] Blood Venous blood specimen / Unknown 03/13/2025 10:55 AM EDT 03/13/2025 11:21 AM EDT us Roby Roth MD LAB BLOOD ORDERABLES Final Resul t [facility] ([facility]) HOSPITAL LAB [address] [place] [address], documented in this encounter Visit Diagnoses Diagnosis Unspecified convulsions (CMS/HCC V24, CMS/HCC V28) documented in this encounter Care Teams Crime Victim Specialist Relationship Specialty Start Date End Date Roby Roth MD [address] [place] [address] Dr [address] [place], [place] PCP - General Internal Medicine 09/11/24 documented as of this encounter
--- OUTSIDE RECORDS SUMMARY | 2025-07-18 13:29 | XMS_ITS | Clinical Summary ---
Author Organization [facility] Address [address] [place] [address] Phone Care Team Providers Care Sales Inspector Name Role Phone Roby Roth DO Primary Care Provider [phone] Allergies No known active allergies Medications docusate sodium (COLACE) 100 MG capsule Take 100 mg by mouth 2 (two) times a day. Active ferrous sulfate 325 mg (65 mg [place] iron) tablet Take 325 mg by mouth [...] [place] Advance Directives For more information, please contact: [phone] (9AM - 5PM [facility], Saturday-Saturday) Healthcare Agents on File Name Relationship Healthcare Agent Relationshi p Communication Guadalupe Peralta Other Other (no proxy form on f ile) Care Teams Sales Inspector Relationship Specialty Start Date End Date Roby Roth DO [address] [place] [address] PCP - General Internal Medicine 10/28/18 Additional Source Comments The information contained in this document represents components of the legal health record. It is not the complete legal health record.[facility]
--- OUTSIDE RECORDS SUMMARY | 2025-07-18 13:29 | XMS_ITS | Clinical Summary ---
Author Organization [address] Address [address] [place] [address] Phone Care Team Providers Care Pad Making Machine Operator Name Role Phone Roby Roth MD Primary Care Provider [phone] Encounters Date Type Department Care Team Description 07/16/[address] [facility] Lab [address] [facility] [place] [phone] Roby Roth MD Unspecified convulsions ([facility] V24, [facility] V28) 07/04/[address] [facility] Lab [address] [place] [phone] Roby Roth MD Other life skills educator (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; Unspecified convulsions ([facility] V24, [facility] V28) 06/15/[address] [facility] Lab [address] [place] [phone] Roby Roth MD Unspecified convulsions ([facility] V24, [facility] V28); Hypothyroidism, unspecified; 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 edema, unspecified eye ([facility] V24, [facility] V28) 06/10/[address] [facility] Lab [address] [place] [address] Roby Roth MD Traumatic subarachnoid hemorrhage without loss of consciousness, sequela ([facility] V24); Personal history of traumatic brain injury; Hypothyroidism, unspecified; 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 edema, unspecified eye ([facility] V24, [facility] V28) 06/09/[address] [facility] Lab [address] [place] [phone] Roby Roth MD 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 edema, unspecified eye ([facility] V24, [facility] V28); Unspecified convulsions ([facility] V24, [facility] V28); Hyperlipidemia, unspecified; Personal history of traumatic brain injury 06/02/[address] [facility] Lab [address] [place] [phone] Roby Roth MD 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 edema, unspecified eye ([facility] V24, [facility] V28); Hyperlipidemia, unspecified; Other assisted (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 05/10/[address] [facility] Lab [address] [place] [phone] Roby Roth MD Traumatic subarachnoid hemorrhage without loss of consciousness, sequela ([facility] V24) 05/04/[address] [facility] Lab [address] [place] [phone] Roby Roth MD Other life skills educator (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 05/02/[address] [facility] Lab [address] [place] [phone] Roby Roth MD Traumatic subarachnoid hemorrhage without loss of consciousness, sequela ([facility] V24); Encounter for therapeutic drug level monitoring 04/30/[address] [facility] Lab [address] [place] [phone] Roby Roth MD Traumatic subarachnoid hemorrhage without loss of consciousness, sequela ([facility] V24) 04/25/[address] [facility] Lab [address] [place] [phone] Roby Roth MD 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 edema, unspecified eye ([facility] V24, [facility] V28) 04/23/2025 Lab Requisition [facility] Lab [address] [facility] [place] [address] Roby Roth MD 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 edema, unspecified eye (CMS/HCC V24, CMS/HCC V28) from Last 3 [...] exists Diabetes: Annual GFR (Glomerular Filtration Rate) 06/15/2026 06/15/2025, 06/10/2025, 06/02/2025, Additional history exists Hypertension/CHF/CAD Annual BMP Blood Test 06/15/2026 06/15/2025, 06/10/2025, 06/02/2025, Additional history exists Cholesterol Screening (Lipid Panel) [...] EST Unspecified convulsions (CMS/HCC V24, CMS/HCC V28) PHENYTOIN LEVEL, TOTAL Routine 07/04/2025 6:42 AM EST Other life skills educator (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 Unspecified convulsions (CMS/HCC V24, CMS/HCC V28) BASIC METABOLIC PANEL Routine 06/15/2025 6:30 AM EDT Unspecified convulsions (CMS/HCC V24, CMS/HCC V28) Hypothyroidism, unspecified 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 edema, unspecified eye (CMS/HCC V24, CMS/HCC V28) THYROID STIMULATING HORMONE Routine 06/15/2025 6:30 AM [...] (CMS/HCC V24, CMS/HCC V28) HEMOGLOBIN A1C Routine 06/10/2025 6:35 AM EDT Traumatic subarachnoid hemorrhage without loss of consciousness, sequela ([facility] V24) Personal history of traumatic brain injury Hypothyroidism, unspecified 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 edema, unspecified eye (CMS/HCC V24, CMS/[facility] V28) PHENYTOIN LEVEL, TOTAL Routine 06/10/2025 6:35 AM EDT Traumatic subarachnoid hemorrhage without loss of consciousness, sequela ([facility] V24) Personal history of traumatic brain injury Hypothyroidism, unspecified 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 edema, unspecified eye ([facility] V24, CMS/[facility] V28) LIPID PANEL WITH REFLEX TO DIRECT LDL Routine 06/10/2025 6:35 AM EDT Traumatic subarachnoid hemorrhage without loss of consciousness, sequela ([facility] V24) Personal history of traumatic brain injury Hypothyroidism, unspecified 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 edema, unspecified eye ([facility] V24, CMS/[facility] V28) COMPREHENSIVE METABOLIC PANEL Routine 06/10/2025 6:35 AM EDT Traumatic subarachnoid hemorrhage without loss of consciousness, sequela ([facility] V24) Personal history of traumatic brain injury Hypothyroidism, unspecified 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 edema, unspecified eye ([facility]/HCC V24, CMS/[facility] V28) PHENYTOIN LEVEL, TOTAL Routine 06/02/2025 7:00 AM EDT 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 edema, unspecified eye (CMS/HCC V24, CMS/[facility] V28) Hyperlipidemia, unspecified Other life skills educator (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 HEMOGLOBIN A1C Routine 06/02/2025 7:00 AM EDT 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 edema, unspecified eye (CMS/HCC V24, CMS/HCC V28) Hyperlipidemia, unspecified Other assisted (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 LIPID PANEL WITH REFLEX TO DIRECT LDL Routine 06/02/2025 7:00 AM EDT 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 edema, unspecified eye (CMS/HCC V24, CMS/HCC V28) Hyperlipidemia, unspecified Other assisted (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 COMPREHENSIVE METABOLIC PANEL Routine 06/02/2025 7:00 AM EDT 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 edema, unspecified eye (CMS/HCC V24, CMS/HCC V28) Hyperlipidemia, unspecified Other life skills educator (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 THYROID STIMULATING HORMONE Routine 05/10/2025 6:00 AM EDT Traumatic subarachnoid hemorrhage without loss of consciousness, sequela (CMS/HCC V24) PHENYTOIN LEVEL, TOTAL Routine 05/10/2025 6:00 AM EDT Traumatic subarachnoid hemorrhage without loss of consciousness, sequela (CMS/HCC V24) THYROID STIMULATING HORMONE Routine 05/04/2025 6:40 AM EDT Other life skills educator (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 PHENYTOIN LEVEL, TOTAL STAT [...] V24, CMS/HCC V28) PHENYTOIN LEVEL, TOTAL STAT 04/25/2025 1:15 PM EDT 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 edema, unspecified eye ([facility] V24, [facility] V28) from Last 3 Months Results * Phenytoin level total (07/16/2025 4:51 AM EST) Only the most recent of8 resultswithin the time period is included. Phenytoin Level 12.4 10.0 - 20.0 mcg/mL 07/16/2025 8:08 AM EST [facility] Blood Venous blood specimen / Unknown 07/16/2025 4:51 AM EST 07/16/2025 6:58 AM EST us Roby Roth MD LAB BLOOD ORDERABLES Final Resul t Performing Organization Address [facility] de Phone Number [facility] [address] [place] [address], [place] [phone] * Thyroid stimulating hormone (06/15/2025 6:30 AM EDT) Only the most recent of5 resultswithin the time period is included. Pathologist [facility] TSH 2.10 0.40 - 4.00 mcIU/mL LAB CHEMISTRY METHOD 06/15/2025 8:23 PM EDT [facility] Blood Venous blood specimen / Unknown 06/15/2025 6:30 AM EDT 06/15/2025 7:20 AM EDT us Roby Roth MD LAB BLOOD ORDERABLES Final Resul t Performing Organization Address [facility]/ZIP Co de Phone Number [facility] [address] [place] [address], [place] [phone] * (ABNORMAL) Basic metabolic panel (06/15/2025 6:30 AM EDT) Pathologist [facility] Sodium 135 133 - 145 mmol/L LAB CHEMISTRY METHOD 06/15/2025 8:49 PM EDT [facility] Potassium 3.9 3.5 - 5.5 mmol/L LAB CHEMISTRY METHOD 06/15/2025 8:49 PM [facility] Chloride 100 96 - 110 mmol/L LAB CHEMISTRY METHOD 06/15/2025 8:49 PM [facility] CO2 24 21 - 32 mmol/L LAB CHEMISTRY METHOD 06/15/2025 8:49 PM [facility] Anion Gap 11 3 - 11 LAB CHEMISTRY METHOD 06/15/2025 8:49 PM [facility] Glucose 302(H) 70 - 100 mg/dL LAB CHEMISTRY METHOD 06/15/2025 8:49 PM [facility] BUN 24 5 - 25 mg/dL LAB CHEMISTRY METHOD 06/15/2025 8:49 PM [facility] Creatinine 1.41(H) 0.50 - 1.10 mg/dL LAB CHEMISTRY METHOD 06/15/2025 8:49 PM [facility] eGFR 44(L) >=60 mL/min/1. 73m2 LAB CHEMISTRY METHOD 06/15/2025 8:49 PM [facility] Comment:Calculation based on the Chronic Kidney Disease Epidemiology Collaboration (CKD-EPI) equation refit without adjustment for race. BUN/Creatinine Ratio 17.0 LAB CHEMISTRY METHOD 06/15/2025 8:49 PM [facility] Calcium 9.7 8.5 - 10.5 mg/dL LAB CHEMISTRY METHOD 06/15/2025 8:49 PM [facility] Blood Venous blood specimen / Unknown 06/15/2025 6:30 AM EDT 06/15/2025 7:20 AM EDT us Roby Roth MD LAB BLOOD ORDERABLES Final Resul t [facility] [address] [place] [address], [place] [phone] * Lipid panel with reflex to direct LDL (06/10/2025 6:35 AM EDT) Only the most recent of2 resultswithin the time period is included. Cholesterol 174 0 - 200 mg/dL LAB CHEMISTRY METHOD 06/10/2025 8:30 AM EDT [facility] Triglycerides 41 0 - 150 mg/dL LAB CHEMISTRY METHOD 06/10/2025 8:30 AM EDT [facility] HDL 100 >=40 mg/dL LAB CHEMISTRY METHOD [facility]2025 [facility] LDL Calculated 66 0 - 100 mg/dL LAB CHEMISTRY METHOD 06/10/2025 8:30 AM T [facility] Comment:Estimated LDL Calcul ated using equation: Total cholesterol - HDL cholesterol - (Triglycerides/5) VLDL Cholesterol Oskar 8.2 mg/dL LAB CHEMISTRY METHOD 06/10/2025 8:30 AM EDT [facility] Non HDL Chol. (LDL+VLDL) 74 <145 mg/dL LAB CHEMISTRY METHOD 06/10/2025 8:30 AM [facility] Chol/HDL Ratio 1.7 0.0 - 4.4 LAB CHEMISTRY METHOD 06/10/2025 8:30 AM [facility] Blood Venous blood specimen / Unknown 06/10/2025 6:35 AM EDT 06/10/2025 7:22 AM EDT us Roby Roth MD LAB BLOOD ORDERABLES Final Resul t [facility] [address] [place] [address], * (ABNORMAL) Hemoglobin A1c (06/10/2025 6:35 AM EDT) Only the most recent of2 resultswithin the time period is included. Hemoglobin A1C 9.3(H) <6.5 % LAB CHEMISTRY METHOD 06/10/2025 10:58 AM T [facility] Mean Bld Glu Estim. 220 mg/dL LAB CHEMISTRY METHOD 06/10/2025 10:58 AM [facility] Blood Venous blood specimen / Unknown 06/10/2025 6:35 AM EDT 06/10/2025 7:22 AM EDT us Roby Roth MD LAB BLOOD ORDERABLES Final Resul t [facility] [address] [place] [address], [place] [phone] * (ABNORMAL) Comprehensive metabolic panel (06/10/2025 6:35 AM EDT) Only the most recent of2 resultswithin the time period is included. Sodium 136 133 - 145 mmol/L LAB CHEMISTRY METHOD 06/10/2025 8:30 AM [facility] Potassium 4.9 3.5 - 5.5 mmol/L LAB CHEMISTRY METHOD 06/10/2025 8:30 AM [facility] Chloride 103 96 - 110 mmol/L LAB CHEMISTRY METHOD 06/10/2025 8:30 AM [facility] CO2 26 21 - 32 mmol/L LAB CHEMISTRY METHOD 06/10/2025 8:30 AM [facility] Anion Gap 7 3 - 11 LAB CHEMISTRY METHOD 06/10/2025 8:30 AM [facility] Glucose 68(L) 70 - 100 mg/dL LAB CHEMISTRY METHOD 06/10/2025 8:30 AM [facility] BUN 37(H) 5 - 25 mg/dL LAB CHEMISTRY METHOD 06/10/2025 8:30 AM [facility] Creatinine 1.26(H) 0.50 - 1.10 mg/dL LAB CHEMISTRY METHOD 06/10/2025 8:30 AM [facility] eGFR 51(L) >=60 mL/min/1. 73m2 LAB CHEMISTRY METHOD 06/10/2025 8:30 AM [facility] Comment:Calculation based on the Chronic Kidney Disease Epidemiology Collaboration (CKD-EPI) equation refit without adjustment for race. BUN/Creatinine Ratio 29.4 LAB CHEMISTRY METHOD 06/10/2025 8:30 AM [facility] Calcium 10.2 8.5 - 10.5 mg/dL LAB CHEMISTRY METHOD 06/10/2025 8:30 AM [facility] AST (SGOT) 25 10 - 42 unit/L LAB CHEMISTRY METHOD 06/10/2025 8:30 AM [facility] ALT (SGPT) 32 10 - 60 unit/L LAB CHEMISTRY METHOD 06/10/2025 8:30 AM [facility] Alkaline Phosphatase 181(H) 42 - 121 unit/L LAB CHEMISTRY METHOD 06/10/2025 8:30 AM [facility] Total Protein 8.2(H) 6.0 - 8.0 g/dL LAB CHEMISTRY METHOD 06/10/2025 8:30 AM [facility] Albumin 3.9 3.2 - 5.0 g/dL LAB CHEMISTRY METHOD 06/10/2025 8:30 AM [facility] Total Bilirubin 0.1 0.0 - 1.4 mg/dL LAB CHEMISTRY METHOD 06/10/2025 8:30 AM [facility] Blood Venous blood specimen / Unknown 06/10/2025 6:35 AM EDT 06/10/2025 7:22 AM EDT us Roby Roth MD LAB BLOOD ORDERABLES Final Resul t [facility] [address] [place] [address], from Last 3 Months Insurance MEDICAID - [place] Care Teams Pad Making Machine Operator Relationship Specialty Start Date End Date Roby Roth MD [address] [place] [address] [address] [place] PCP - General Internal Medicine 09/11/24
--- OUTSIDE RECORDS SUMMARY | 2025-07-18 13:29 | XMS_ITS | Encounter Summary ---
Author Organization [facility] Address [address] [place] [address] Care Team Providers Care Rolling Machine Operator Automatic Name Role Phone Roby Roth MD Primary Care Provider [phone] Encounter Details Date Type Department Care Team (Late st Contact Info) Description 08/07/2024 Lab Requisition [facility] Lab [address] [place] [address] Roby Roth MD [address] [place] [address] Dr [address] [place], [place] Traumatic subarachnoid hemorrhage without loss of [...] LAB CHEMISTRY METHOD 08/07/2024 10:47 AM EST [facility] Blood Venous blood specimen / Unknown 08/07/2024 9:31 AM EST 08/07/2024 10:15 AM EST us Roby Roth MD LAB BLOOD ORDERABLES Final Resul t [facility] [address] [place] [address], documented in this encounter Visit Diagnoses Diagnosis Traumatic subarachnoid hemorrhage without loss of consciousness, sequela (CMS/HCC V24) documented in this encounter Care Teams Rolling Machine Operator Automatic Relationship Specialty Start Date End Date Roby Roth MD [address] [facility] [address] [place], [place] PCP - General Internal Medicine 09/11/24 documented as of this encounter
--- OUTSIDE RECORDS SUMMARY | 2025-07-18 13:29 | XMS_ITS | Encounter Summary ---
Author Organization [facility] Address [address] [place] [address] Care Team Providers Care Powder Shoveler Name Role Phone Roby Roth MD Primary Care Provider [phone] Encounter Details Date Type Department Care Team (Latest Contact Info) Description 07/06/2024 Lab Requisition [facility] - Main Lab [address] [place] [address] Roby Roth MD [address] [place] [address] Dr [address] [place], [place] Type 2 diabetes mellitus with mild [...] edema, unspecified eye (CMS/[facility]) documented in this encounter Results * Phenytoin level total (07/06/2024 5:45 AM EST) Phenytoin Level 10.1 10.0 - 20.0 mcg/mL LAB CHEMISTRY METHOD 07/06/2024 7:54 AM EST [facility] Blood Venous blood specimen / Unknown 07/06/2024 5:45 AM EST 07/06/2024 7:19 AM EST Roby Roth MD LAB BLOOD ORDERABLES Final Resul t [facility] ([facility] [address] [place] [address], documented in this encounter Visit Diagnoses Diagnosis 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 edema, unspecified eye (CMS/[facility] V24, CMS/[facility] V28) documented in this encounter Care Teams Powder Shoveler Relationship Specialty Start Date End Date Roby Roth MD [address] [place] [address] Dr [address] [place], [place] PCP - General Internal Medicine 09/11/24 documented as of this encounter
--- OUTSIDE RECORDS SUMMARY | 2025-07-18 13:29 | XMS_ITS | Clinical Summary ---
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); Mild nonproliferative diabetic retinopathy of both eyes without macular edema associated with type 2 diabetes mellitus ([facility]) 05/04/2025 Travel from Last 3 Months Social History Tobacco Use Types Packs/Day Years Used Date Smoking Tobacco: Never Assessed Comments Unknown Sex and Gender Information Value Date Recorded Sex Assigned at Not on file Legal Sex Female 3:43 AM EST Gender Identity Not on file Sexual Orientation Not on file Plan of Treatment Upcoming Encounters Date Type Department Care Team (Latest Contact Info) Description 08/31/2025 1:00 PM EST Office Visit [facility] Ophthalmology [address] [facility] [place] [phone] Jelani Martinez MD [address] [place] [address] 09/15/2025 7:30 AM EST Hospital Encounter [facility] OPERATING ROOM [address] [phone] Jelani Martinez MD [address] [place] [address] 09/15/2025 7:30 AM EST - 09/15/2025 8:[address] [facility] OPER[facility] ROOM [facility] [address] [place] [phone] Jelani Martinez MD [address] [place] [address] PHACOEMULSIFICATION WITH INTRAOCULAR LENS RIGHT EYE [49610 (CPT )] Scheduled Procedures Name Priority Associated Diagnoses Date/Ti me Cataract Extraction Phacoemulsification Combined forms of age-related cataract, right eye 09/15/2025 7:30 AM EST Health Maintenance Due Date Last Done Comments [...] Cancer Screening 10/29/1999 HPV/Cotest 10/29/1999 Mammogram 2009 RSV Vaccines (1 - Risk 50-74 years 1-dose series) 10/29/2019 Zoster Vaccines (1 of 2) 10/29/2019 Influenza [...] patient's age to complete this topic Insurance [place]
--- OUTSIDE RECORDS SUMMARY | 2025-07-18 13:29 | XMS_ITS | Encounter Summary ---
Author Organization [facility] Address [address] [place] [address] Care Team Providers Care Patrol Guard Name Role Phone Roby Roth MD Primary Care Provider [phone] Encounter Details Date Type Department Care Team (Latest Contact Info) Description 06/02/2025 Lab Requisition [facility] - Main Lab 299 [facility] [place] [address] Roby Roth MD [address] [place] [address] Dr [address] [place], [place] 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 edema, unspecified eye (CMS/HCC V24, CMS/HCC V28); Hyperlipidemia, unspecified; Other intermodal customer service (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 Social History Tobacco Use [...] (CMS/HCC V24, CMS/HCC V28) Hyperlipidemia, unspecified Other intermodal customer service (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 HEMOGLOBIN A1C Routine 06/02/2025 7:00 AM EDT 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 edema, unspecified eye (CMS/HCC V24, CMS/HCC V28) Hyperlipidemia, unspecified Other care home (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 PHENYTOIN LEVEL, TOTAL Routine 06/02/2025 7:00 AM EDT 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 edema, unspecified eye ([facility] V24, [facility] V28) Hyperlipidemia, unspecified Other intermodal customer service (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 COMPREHENSIVE METABOLIC PANEL Routine 06/02/2025 7:00 AM EDT 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 edema, unspecified eye ([facility] V24, [facility] V28) Hyperlipidemia, unspecified Other intermodal customer service (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 documented in this encounter Results * Phenytoin level total (06/02/2025 7:00 AM EDT) Phenytoin Level 14.7 10.0 - 20.0 mcg/mL LAB CHEMISTRY METHOD 06/02/2025 8:[address] [facility] Blood Venous blood specimen / Unknown 06/02/2025 7:00 AM EDT 06/02/2025 7:51 AM EDT us Roby Roth MD LAB BLOOD ORDERABLES Final Resul t Performing Organization Address City/[facility]/ZIP Co de Phone Number [facility] [address] [place] [address], [place] [phone] * (ABNORMAL) Hemoglobin A1c (06/02/2025 7:00 AM [...] Resul t [facility] [address] [place] [address], [place] [phone] * Lipid panel with reflex to direct [...] Resul t [facility] [address] [place] [address], [place] [phone] * (ABNORMAL) Comprehensive metabolic panel (06/02/2025 7:00 AM EDT) Sodium 128(L) 133 - 145 mmol/L LAB CHEMISTRY METHOD 06/02/2025 8:25 AM [facility] Potassium 4.2 3.5 - 5.5 mmol/L LAB CHEMISTRY METHOD 06/02/2025 8:25 AM [facility] Chloride 90(L) 96 - 110 mmol/L LAB CHEMISTRY METHOD 06/02/2025 8:25 AM [facility] CO2 27 21 - 32 mmol/L LAB CHEMISTRY METHOD 06/02/2025 8:25 AM [facility] Anion Gap 11 3 - 11 LAB CHEMISTRY METHOD 06/02/2025 8:25 AM [facility] Glucose 192(H) 70 - 100 mg/dL LAB CHEMISTRY METHOD 06/02/2025 8:25 AM [facility] BUN 28(H) 5 - 25 mg/dL LAB CHEMISTRY METHOD 06/02/2025 8:25 AM [facility] Creatinine 1.58(H) 0.50 - 1.10 mg/dL LAB CHEMISTRY METHOD 06/02/2025 8:25 AM [facility] eGFR 39(L) >=60 mL/min/1. 73m2 LAB CHEMISTRY METHOD 06/02/2025 8:25 AM [facility] Comment:Calculation based on the Chronic Kidney Disease Epidemiology Collaboration (CKD-EPI) equation refit without adjustment for race. BUN/Creatinine Ratio 17.7 LAB CHEMISTRY METHOD 06/02/2025 8:25 AM [facility] Calcium 10.2 8.5 - 10.5 mg/dL LAB CHEMISTRY METHOD 06/02/2025 8:25 AM [facility] AST (SGOT) 24 10 - 42 unit/L LAB CHEMISTRY METHOD 06/02/2025 8:25 AM [facility] ALT (SGPT) 36 10 - 60 unit/L LAB CHEMISTRY METHOD 06/02/2025 8:25 AM [facility] Alkaline Phosphatase 201(H) 42 - [...] Resul t [facility] [address] [place] [address], [place] [phone] documented in this encounter Visit Diagnoses Diagnosis 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 edema, unspecified eye (CMS/HCC V24, CMS/HCC V28) Hyperlipidemia, unspecified Other intermodal customer service (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 documented in this encounter Care Teams Patrol Guard Relationship Specialty Start Date End Date Roby Roth MD [address] [place], [place] PCP - General Internal Medicine 09/11/24 documented as of this encounter
--- OUTSIDE RECORDS SUMMARY | 2025-07-18 13:29 | XMS_ITS | Encounter Summary ---
Author Organization [facility] Address [address] [place] [address] Care Team Providers Care Utility System Operator Name Role Phone Roby Roth MD Primary Care Provider [phone] Encounter Details Date Type Department Care Team (Late st Contact Info) Description 03/05/2025 Lab Requisition [facility] - Main Lab 299 [facility] [place] [address] Roby Roth MD [address] [place] [address] [address] [place], [place] Other senior living (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; Unspecified convulsions (CMS/HCC V24, [...] GOLD Routine 03/05/2025 6:30 AM EDT Other senior living (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 Unspecified convulsions (CMS/HCC V24, CMS/HCC V28) SST - GOLD Routine 03/05/2025 6:30 AM EDT Other moth exterminator (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 Unspecified convulsions (CMS/HCC V24, CMS/HCC V28) PHENYTOIN LEVEL, TOTAL Routine 03/05/2025 6:30 AM EDT Other moth exterminator (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 Unspecified convulsions (CMS/HCC V24, CMS/HCC V28) documented in this encounter Results * (ABNORMAL) Phenytoin level total (03/05/2025 6:30 AM EDT) Phenytoin Level 4.2(L) 10.0 - 20.0 mcg/mL LAB CHEMISTRY METHOD 03/08/2025 8:36 AM EDT [facility] Blood Venous blood specimen / Unknown 03/05/2025 6:30 AM EDT 03/05/2025 7:37 AM EDT us Roby Roth MD LAB BLOOD ORDERABLES Final Resul t Performing Organization Address City/[facility]/ZIP Co de Phone Number [facility] [address] [place] [address], [place] [phone] * SST tube (03/05/2025 6:30 AM EDT) Extra Tube Hold for add-ons. 03/05/2025 9:01 AM EDT [facility] Comment:Auto resulted. Blood Venous blood specimen / Unknown 03/05/2025 6:30 AM EDT 03/05/2025 7:37 AM EDT us Roby Roth MD LAB BLOOD ORDERABLES Final Resul t Performing Organization Address [facility] Co de Phone Number [facility] [address] [place] [address], [place] [phone] * SST tube (03/05/2025 6:30 AM EDT) Extra Tube Hold for add-ons. 03/05/2025 9:01 AM EDT [facility] Comment:Auto resulted. Blood Venous blood specimen / Unknown 03/05/2025 6:30 AM EDT 03/05/2025 7:37 AM EDT us Roby Roth MD LAB BLOOD ORDERABLES Final Resul t Performing Organization Address City/[facility]/ZIP Co de Phone Number [facility] [address] [place] [address], documented in this encounter Visit Diagnoses Diagnosis Other moth exterminator (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 Unspecified convulsions (CMS/HCC V24, CMS/HCC V28) documented in this encounter Care Teams Utility System Operator Relationship Specialty Start Date End Date Roby Roth MD [address] [place] [address] Dr [address] [place], [place] PCP - General Internal Medicine 09/11/24 documented as of this encounter
--- OUTSIDE RECORDS SUMMARY | 2025-07-18 13:29 | XMS_ITS | Encounter Summary ---
Author Organization [facility] Address [address] [place] [address] Care Team Providers Care Agile Test Lead Name Role Phone Roby Roth MD Primary Care Provider [phone] Encounter Details Date Type Department Care Team (Late st Contact Info) Description 02/16/2025 Lab Requisition [facility] - Main Lab [address] [place] [address] Roby Roth MD [address] [place] [address] Dr [address] [place], [place] Hypothyroidism, unspecified Social History Tobacco Use [...] Hold for add-ons. 02/16/2025 8:01 AM EDT [facility] Comment:Auto resulted. Blood Venous blood specimen / Unknown 02/16/2025 6:15 AM EDT 02/16/2025 7:00 AM EDT us Roby Roth MD LAB BLOOD ORDERABLES Final Resul t Performing Organization Address [facility] Co de Phone Number [facility] [address] [place] [address], [place] [phone] * (ABNORMAL) Phenytoin level total (02/16/2025 6:15 AM EDT) Phenytoin Level 3.7(L) 10.0 - 20.0 mcg/mL LAB CHEMISTRY METHOD 02/16/2025 8:01 AM EDT [facility] Blood Venous blood specimen / Unknown 02/16/2025 6:15 AM EDT 02/16/2025 6:59 AM EDT us Roby Roth MD LAB BLOOD ORDERABLES Final Resul t Performing Organization Address [facility] de Phone Number [facility] [address] [place] [address], [place] [phone] * Thyroxine free (02/16/2025 6:15 AM EDT) Free T4 1.27 0.70 - 1.80 ng/dL LAB CHEMISTRY METHOD 02/16/2025 10:34 AM EDT [facility] Blood Venous blood specimen / Unknown 02/16/2025 6:15 AM EDT 02/16/2025 6:59 AM EDT us Roby Roth MD LAB BLOOD ORDERABLES Final Resul t Performing Organization Address [facility]/ZIP Co de Phone Number [facility] [address] [place] [address], [place] [phone] * Thyroid stimulating hormone (02/16/2025 6:15 AM EDT) TSH 0.99 0.40 - 4.00 mcIU/mL LAB CHEMISTRY METHOD 02/16/2025 10:34 AM EDT [facility] Blood Venous blood specimen / Unknown 02/16/2025 6:15 AM EDT 02/16/2025 6:59 AM EDT us Roby Roth MD LAB BLOOD ORDERABLES Final Resul t [facility] [address] [place] [address], documented in this encounter Visit Diagnoses Diagnosis Hypothyroidism, unspecified documented in this encounter Care Teams Agile Test Lead Relationship Specialty Start Date End Date Roby Roth MD [address] [place] [address] Dr [address] [place], [place] PCP - General Internal Medicine 09/11/24 documented as of this encounter
--- OUTSIDE RECORDS SUMMARY | 2025-07-18 13:29 | XMS_ITS | Encounter Summary ---
Author Organization [facility] Address [address] [place] [address] Care Team Providers Care Heel Painter Name Role Phone Roby Roth MD Primary Care Provider [phone] Encounter Details Date Type Department Care Team (Late st Contact Info) Description 07/24/2024 Lab Requisition [facility] - Main Lab 299 [facility] [place] [address] Roby Roth MD [address] [place] [address] [address] [place], [place] Hypothyroidism, unspecified; Unspecified convulsions (CMS/HCC V24, [...] CBC auto differential (07/24/2024 4:55 AM EST) [facility] [address] WBC 8.9 4.8 - 10.8 K/mcL LAB HEMETOLOGY METHOD 07/24/2024 6:27 AM [facility] RBC 3.50(L) 3.80 - 4.80 M/mcL LAB HEMETOLOGY METHOD 07/24/2024 6:27 AM [facility] Hemoglobin 10.0(L) 11.5 - 16.0 g/dL LAB HEMETOLOGY METHOD 07/24/2024 6:27 AM [facility] Hematocrit 31.4(L) 35.0 - 47.0 % LAB HEMETOLOGY METHOD 07/24/2024 6:27 AM [facility] MCV 89.0 79.0 - 98.0 FL LAB HEMETOLOGY METHOD 07/24/2024 6:27 AM [facility] MCH 28.3 27.0 - 32.0 pcg LAB HEMETOLOGY METHOD 07/24/2024 6:27 AM [facility] MCHC 31.8(L) 32.0 - 37.0 g/dL LAB HEMETOLOGY METHOD 07/24/2024 6:27 AM [facility] RDW 13.7 11.0 - 15.0 % LAB HEMETOLOGY METHOD 07/24/2024 6:27 AM [facility] Platelets 243 130 - 400 K/mcL LAB HEMETOLOGY METHOD 07/24/2024 6:27 AM [facility] MPV 10.8 7.0 - 11.0 FL LAB HEMETOLOGY METHOD 07/24/2024 6:27 AM [facility] NRBC 0.0 <1.0 % LAB HEMETOLOGY METHOD 07/24/2024 6:27 AM [facility] NRBC Absolute 0.00 <0.10 K/mcL LAB HEMETOLOGY METHOD 07/24/2024 6:27 AM [facility] Neutrophils Relative 65.4 % LAB HEMETOLOGY METHOD 07/24/2024 6:27 AM [facility] Lymphocytes Relative 27.0 % LAB HEMETOLOGY METHOD 07/24/2024 6:27 AM [facility] Monocytes Relative 7.0 % LAB HEMETOLOGY METHOD 07/24/2024 6:27 AM [facility] Eosinophils Relative 0.2 % LAB HEMETOLOGY METHOD 07/24/2024 6:27 AM [facility] Basophils Relative 0.2 % LAB HEMETOLOGY METHOD 07/24/2024 6:27 AM [facility] Immature Granulocytes Relative 0.2 % LAB HEMETOLOGY METHOD 07/24/2024 6:27 AM [facility] Neutrophils Absolute 5.83 1.50 - 7.00 K/mcL LAB HEMETOLOGY METHOD 07/24/2024 6:27 AM [facility] Lymphocytes Absolute 2.41 1.00 - 5.00 K/mcL LAB HEMETOLOGY METHOD 07/24/2024 6:27 AM [facility] Monocytes Absolute 0.62 0.20 - 1.00 K/mcL LAB HEMETOLOGY METHOD 07/24/2024 6:27 AM [facility] Eosinophils Absolute 0.02 0.00 - 0.50 K/mcL LAB HEMETOLOGY METHOD 07/24/2024 6:27 AM EST [facility] Basophils Absolute 0.02 0.00 - 0.20 K/[facility] LAB HEMETOLOGY METHOD 07/24/2024 6:27 AM EST [facility] Immature Granulocytes Absolute 0.02 0.00 - 0.03 K/[facility] LAB HEMETOLOGY METHOD 07/24/2024 6:27 AM EST [facility] Blood Venous blood specimen / Unknown 07/24/2024 4:55 AM EST 07/24/2024 6:26 AM EST us Roby Roth MD LAB BLOOD ORDERABLES Final Resul t Performing Organization Address City/[facility]/ZIP Co de Phone Number [facility] [address] [place] [address], [place] [phone] * (ABNORMAL) Thyroid stimulating hormone (07/24/2024 4:55 AM EST) TSH 13.12(H) 0.40 - 4.00 mcIU/mL LAB CHEMISTRY METHOD 07/24/2024 7:00 AM EST [facility] Blood Venous blood specimen / Unknown 07/24/2024 4:55 AM EST 07/24/2024 6:26 AM EST us Roby Roth MD LAB BLOOD ORDERABLES Final Resul t [facility] [address] [place] [address], [place] [phone] * (ABNORMAL) Phenytoin level total (07/24/2024 4:55 AM EST) Phenytoin Level 8.3(L) 10.0 - 20.0 mcg/mL LAB CHEMISTRY METHOD 07/24/2024 6:51 AM EST [facility] Blood Venous blood specimen / Unknown 07/24/2024 4:55 AM EST 07/24/2024 6:26 AM EST us Roby Roth MD LAB BLOOD ORDERABLES Final Resul t Performing Organization Address City/[facility]/ZIP Co de Phone Number [facility] [address] [place] [address], * (ABNORMAL) Haloperidol level (07/24/2024 4:55 AM EST) Haloperidol 3(L) 5 - 15 ng/mL 08/05/2024 3:18 PM EST [facility] Comment: This test was developed and its analytical performance characteristics have been determined by [employer] [facility]. It has not been cleared or approved by the FDA. This assay has been validated pursuant to the CLIA regulations and is used for clinical purposes. TEST PERFORMED AT: [facility] [address] [id number] EVAN MOSCOSO MD Blood Venous blood specimen / Unknown 07/24/2024 4:55 AM EST 07/24/2024 6:26 AM EST us Roby Roth MD LAB BLOOD ORDERABLES Final Resul t Performing Organization Address City/[facility]/ZIP Co de Phone Number [facility] [address] [place] [address] * Levetiracetam level (07/24/2024 4:55 AM EST) Levetiracetam 31.5 3.0 - 60.0 ug/mL 07/27/2024 6:16 AM EST [facility] Comment: Steady state trough serum or plasma levels following doses of 1000 to 3000 mg/Day: 3 to 37 ug/mL. The same dosage regimen will typically result in peak levels of 10 to 60 ug/mL, at approximately 1.5 hours post dose. If applicable, any drug confirmation testing reported here was developed and the performance characteristics determined by [facility]. This confirmation testing has not been cleared or approved by the FDA. The laboratory is regulated under CLIA as qualified to perform high-complexity testing. This test is used for patient testing purposes. It should not be regarded as investigational or for research. Test performed at [facility], [address], [place] [address] Fatemeh Godfrey MD, PhD - Front End Developer Blood Venous blood specimen / Unknown 07/24/2024 4:55 AM EST 07/24/2024 6:26 AM EST us Roby Roth MD LAB BLOOD ORDERABLES Final Resul t [facility] [address] [place] [address] * (ABNORMAL) Comprehensive metabolic panel (07/24/2024 4:55 AM EST) Sodium 130(L) 133 - 145 mmol/L LAB CHEMISTRY METHOD 07/24/2024 6:51 AM [facility] Potassium 4.2 3.5 - 5.5 mmol/L LAB CHEMISTRY METHOD 07/24/2024 6:51 AM [facility] Chloride 96 96 - 110 mmol/L LAB CHEMISTRY METHOD 07/24/2024 6:51 AM [facility] CO2 25 21 - 32 mmol/L LAB CHEMISTRY METHOD 07/24/2024 6:51 AM [facility] Anion Gap 9 3 - 11 LAB CHEMISTRY METHOD 07/24/2024 6:51 AM [facility] Glucose 253(H) 70 - 100 mg/dL LAB CHEMISTRY METHOD 07/24/2024 6:51 AM [facility] BUN 41(H) 5 - 25 mg/dL LAB CHEMISTRY METHOD 07/24/2024 6:51 AM [facility] Creatinine 2.14(H) 0.50 - 1.10 mg/dL LAB CHEMISTRY METHOD 07/24/2024 6:51 AM [facility] eGFR 27(L) >=60 mL/min/1. 73m2 LAB CHEMISTRY METHOD 07/24/2024 6:51 AM [facility] Comment:Calculation based on the Chronic Kidney Disease Epidemiology Collaboration (CKD-EPI) equation refit without adjustment for race. BUN/Creatinine Ratio 19.2 LAB CHEMISTRY METHOD 07/24/2024 6:51 AM [facility] Calcium 9.8 8.5 - 10.5 mg/dL LAB CHEMISTRY METHOD 07/24/2024 6:51 AM [facility] AST (SGOT) 18 10 - 42 unit/L LAB CHEMISTRY METHOD 07/24/2024 6:51 AM [facility] ALT (SGPT) 26 10 - 60 unit/L LAB CHEMISTRY METHOD 07/24/2024 6:51 AM [facility] Alkaline Phosphatase 183(H) 42 - 121 unit/L LAB CHEMISTRY METHOD 07/24/2024 6:51 AM [facility] Total Protein 8.1(H) 6.0 - 8.0 g/dL LAB CHEMISTRY METHOD 07/24/2024 6:51 AM [facility] Albumin 4.2 3.2 - 5.0 g/dL LAB CHEMISTRY METHOD 07/24/2024 6:51 AM [facility] Total Bilirubin 0.2 0.0 - 1.4 mg/dL LAB CHEMISTRY METHOD 07/24/2024 6:51 AM [facility] Blood Venous blood specimen / Unknown 07/24/2024 4:55 AM EST 07/24/2024 6:26 AM EST us Roby Roth MD LAB BLOOD ORDERABLES Final Resul t [facility] [address] [place] [address], documented in this encounter Visit Diagnoses Diagnosis Hypothyroidism, unspecified Unspecified convulsions (CMS/HCC V24, CMS/HCC V28) documented in this encounter Care Teams Heel Painter Relationship Specialty Start Date End Date Roby Roth MD [address] [place] [address] Dr [address] [facility] [place], [place] PCP - General Internal Medicine 09/11/24 documented as of this encounter
--- OUTSIDE RECORDS SUMMARY | 2025-07-18 13:29 | XMS_ITS | Encounter Summary ---
Author Organization [facility] Address [address] [place] [address] Care Team Providers Care Marketing Mgr Name Role Phone Roby Roth MD Primary Care Provider [phone] Encounter Details Date Type Department Care Team (Late st Contact Info) Description 08/15/[address] [facility] - Main Lab 299 [facility] [employer] [place] [address] Roby Roth MD [address] [place] [address] [address] [place], [place] Unspecified convulsions (CMS/HCC V24, CMS/HCC V28) [...] LAB CHEMISTRY METHOD 08/15/2024 8:09 AM EST [facility] ([facility]) [facility] Blood Venous blood specimen / Unknown 08/15/2024 6:20 AM EST 08/15/2024 7:49 AM EST us Roby Roth MD LAB BLOOD ORDERABLES Final Resul t [facility] ([facility] [address] [place] [address], documented in this encounter Visit Diagnoses Diagnosis Unspecified convulsions (CMS/HCC V24, CMS/HCC V28) documented in this encounter Care Teams Marketing Mgr Relationship Specialty Start Date End Date Roby Roth MD [address] [facility] [address] [facility] [address] [place], [place] PCP - General Internal Medicine 09/11/24 documented as of this encounter
--- OUTSIDE RECORDS SUMMARY | 2025-07-18 13:29 | XMS_ITS | Encounter Summary ---
Author Organization [facility] Address [address] [place] [address] Care Team Providers Care Outside Production Inspector Name Role Phone Roby Roth MD Primary Care Provider Encounter Details Date Type Department Care Team (Late st Contact Info) Description 05/10/2025 Lab Requisition [facility] - Main Lab 299 [facility] [place] [address] Roby Roth MD [address] [place] [address] [address] [place], [place] Traumatic subarachnoid hemorrhage without loss of [...] LAB CHEMISTRY METHOD 05/10/2025 9:25 AM EDT [facility]) [facility] Blood Venous blood specimen / Unknown 05/10/2025 6:00 AM EDT 05/10/2025 6:50 AM EDT us Roby Roth MD LAB BLOOD ORDERABLES Final Resul t Performing Organization Address City/[facility]/ZIP Co de Phone Number [facility] [address] [place] [address], [place] [phone] * Phenytoin level total (05/10/2025 6:00 AM EDT) Phenytoin Level 17.1 10.0 - 20.0 mcg/mL LAB CHEMISTRY METHOD 05/10/2025 7:46 AM EDT [facility] Blood Venous blood specimen / Unknown 05/10/2025 6:00 AM EDT 05/10/2025 6:50 AM EDT us Roby Roth MD LAB BLOOD ORDERABLES Final Resul t Performing Organization Address [facility]/ZIP Co de Phone Number [facility] [address] [place] [address], [place] [phone] documented in this encounter Visit Diagnoses Diagnosis Traumatic subarachnoid hemorrhage without loss of consciousness, sequela (CMS/HCC V24) documented in this encounter Care Teams Outside Production Inspector Relationship Specialty Start Date End Date Roby Roth MD [address] [place] [address] [place] [address] PCP - General Internal Medicine 09/11/24 documented as of this encounter
--- OUTSIDE RECORDS SUMMARY | 2025-07-18 13:29 | XMS_ITS | Encounter Summary ---
Author Organization [facility] Address [address] [place] [address] Care Team Providers Care Format Proofreader Name Role Phone Roby Roth MD Primary Care Provider [phone] Encounter Details Date Type Department Care Team (Late st Contact Info) Description 01/19/[address] [facility] - Main Lab [address] [facility] [place] [address] Roby Roth MD [address] [place] [address] [address] [place], [place] Epilepsy, unspecified, not intractable, with status epilepticus (CMS/[facility] V24, CMS/[facility] V28) Social History Tobacco Use [...] not intractable, with status epilepticus (CMS/HCC V24, CMS/[facility] V28) PHENYTOIN LEVEL, TOTAL Routine 01/19/2025 6:50 AM EDT Epilepsy, unspecified, not intractable, with status epilepticus (CMS/HCC V24, CMS/HCC V28) documented in this encounter Results * SST tube (01/19/2025 6:50 AM EDT) Extra Tube Hold for add-ons. 01/19/2025 9:[address] [facility]) [facility] Comment:Auto resulted. Blood Venous blood specimen / Unknown 01/19/2025 6:50 AM EDT 01/19/2025 7:22 AM EDT us Roby Roth MD LAB BLOOD ORDERABLES Final Resul t Performing Organization Address [facility]/ZIP Co de Phone Number [facility] [address] [place] [address], [place] [phone] * Phenytoin level total (01/19/2025 6:50 AM EDT) Phenytoin Level 14.0 10.0 - 20.0 mcg/mL LAB CHEMISTRY METHOD 01/19/2025 8:10 AM EDT [facility] LAB Blood Venous blood specimen / Unknown 01/19/2025 6:50 AM EDT 01/19/2025 7:22 AM EDT us Roby Roth MD LAB BLOOD ORDERABLES Final Resul t Performing Organization Address [facility]/ZIP Co de Phone Number [facility] [address] [place] [address], [place] [phone] documented in this encounter Visit Diagnoses Diagnosis Epilepsy, unspecified, not intractable, with status epilepticus (CMS/HCC V24, CMS/HCC V28) documented in this encounter Care Teams Format Proofreader Relationship Specialty Start Date End Date Roby Roth MD [address] [place] [address] [address] [place] [address] [place] PCP - General Internal Medicine 09/11/24 documented as of this encounter
--- OUTSIDE RECORDS SUMMARY | 2025-07-18 13:29 | XMS_ITS | Encounter Summary ---
Author Organization [facility] Address [address] [place] [address] Care Team Providers Care Siene Maker Name Role Phone Roby Roth MD Primary Care Provider [phone] Encounter Details Date Type Department Care Team (Late st Contact Info) Description 01/12/2025 Lab Requisition [facility] - Main Lab [address] [place] [address] Roby Roth MD [address] [place] [address] [address] [place], [place] Other seizures (CMS/HCC V24, CMS/HCC V28); [...] LAB CHEMISTRY METHOD 01/14/2025 8:21 PM EDT [facility] Blood Venous blood specimen / Unknown 01/12/2025 01/12/2025 9:23 AM EDT us Roby Roth MD LAB BLOOD ORDERABLES Final Resul t Performing Organization Address City/[facility]/ZIP Co de Phone Number [facility] [address] [place] [address], [place] [phone] * (ABNORMAL) Phenytoin level total (01/12/2025 12:00 AM EDT) Phenytoin Level 28.0(HH) 10.0 - 20.0 mcg/mL LAB CHEMISTRY METHOD 01/12/2025 10:14 AM EDT [facility] Blood Venous blood specimen / Unknown 01/12/2025 01/12/2025 9:23 AM EDT us Roby Roth MD LAB BLOOD ORDERABLES Final Resul t Performing Organization Address [facility]/ZIP Co de Phone Number [facility] [address] [place] [address], [place] [phone] documented in this encounter Visit Diagnoses Diagnosis Other seizures (CMS/HCC V24, CMS/HCC V28) Hypothyroidism, unspecified documented in this encounter Care Teams Siene Maker Relationship Specialty Start Date End Date Roby Roth MD [address] [facility] [address] [place] [address] PCP - General Internal Medicine 09/11/24 documented as of this encounter
--- OUTSIDE RECORDS SUMMARY | 2025-07-18 13:29 | XMS_ITS | Encounter Summary ---
Author Organization [facility] Address [address] [place] [address] Care Team Providers Care Airport Ramp Supervisor Name Role Phone Roby Roth MD Primary Care Provider [phone] Encounter Details Date Type Department Care Team (Late st Contact Info) Description 02/24/2025 Lab Requisition [facility] - Main Lab [address] [place] [address] Roby Roth MD [address] [place] [address] [address] [place], [place] Unspecified convulsions (CMS/HCC V24, CMS/HCC V28) [...] LAB CHEMISTRY METHOD 02/24/2025 8:10 AM EDT [facility]) [facility] Blood Venous blood specimen / Unknown 02/24/2025 5:50 AM EDT 02/24/2025 6:49 AM EDT us Roby Roth MD LAB BLOOD ORDERABLES Final Resul t [facility] LAB [address] [place] [address], documented in this encounter Visit Diagnoses Diagnosis Unspecified convulsions (CMS/HCC V24, CMS/HCC V28) documented in this encounter Care Teams Airport Ramp Supervisor Relationship Specialty Start Date End Date Roby Roth MD [address] [place] [address] Dr [address] [place], [place] PCP - General Internal Medicine 09/11/24 documented as of this encounter
--- NOTE | 2025-07-18 14:35 | ED.GENADULT ---
HPI - General Adult General Chief complaint: Altered Mental Status Stated complaint: REFUSING MEDS X2 DAYS, CAREONE, AGGITATED Time Seen by Provider: 07/18/25 14:35 Source: EMS, RN notes reviewed and old records reviewed Mode of arrival: EMS Limitations: altered mental status History of Present Illness ED Provider: Cornelius HPI narrative: Patient is a 54-year-old female with pmhx of TBI, Subarachnoid hemorrhage, dementia, seizure disorder, mood disorder, anxiety, DM2, HTN, HLD, Hypothyroid, Prolonged QTc, COVID, Diabetic Neuropathy, Diabetic Retinopathy, Urinary Tract Infections, Leiomyomatous uterus presenting from [facility] for agitation and refusing medications for the past 2 days. Patient had her health care proxy permanently invoked on 02/09/16. She is not answering any questions during HPI but does state get the fuck off me, when abdomen palpated. MD complaint: agitation, refusing medications Related Data Home Medications ?Medication ?Instructions ?Recorded ?Confirmed acetaminophen 325 mg tablet 650 mg PO Q12H PRN Fever Or Pain 10/29/22 06/12/25 atorvastatin 10 mg tablet 10 mg PO BEDTIME 10/29/22 06/12/25 benztropine 1 mg tablet 1 mg PO BID 10/29/22 06/12/25 calcium 600 mg (as 1 tab PO BID 10/29/22 06/12/25 carbonate)-vitamin D3 10 mcg (400 unit) tablet (Calcium 600 + D(3)) cholecalciferol (vitamin D3) 1,250 1,250 mcg PO MO@0900 10/29/22 06/12/25 mcg (50,000 unit) capsule docusate sodium 100 mg capsule 100 mg PO BID 10/29/22 06/12/25 ferrous sulfate 324 mg (65 mg 324 mg PO DAILY 10/29/22 06/12/25 iron) tablet,delayed release gabapentin 600 mg tablet 600 mg PO TID 10/29/22 06/12/25 guaifenesin 100 mg/5 mL oral liquid 200 mg PO Q4H PRN Cough 10/29/22 06/12/25 haloperidol 10 mg tablet 10 mg PO BID 10/29/22 06/12/25 haloperidol 5 mg tablet 5 mg PO BID 10/29/22 06/12/25 hydroxyzine HCl 25 mg tablet 25 mg PO BID 10/29/22 06/12/25 ibuprofen 600 mg tablet 600 mg PO Q8H PRN Moderate Pain 10/29/22 06/12/25 (Scale Score 5-6) insulin aspart U-100 100 unit/mL 1 sliding scale dose subcut 10/29/22 06/12/25 subcutaneous solution (Novolog USEASDIRECTD U-100 Insulin aspart) levetiracetam 1,000 mg tablet 1,000 mg PO BID 10/29/22 06/12/25 metformin 1,000 mg tablet 1,000 mg PO BID 10/29/22 06/12/25 oxcarbazepine 150 mg tablet 150 mg PO DAILY 10/29/22 06/12/25 (Trileptal) oxcarbazepine 300 mg tablet 300 mg PO BEDTIME 10/29/22 06/12/25 (Trileptal) sennosides 8.6 mg tablet (senna) 8.6 mg PO DAILY PRN Constipation 10/29/22 06/12/25 sodium phosphates 19 gram-7 118 ml GA DAILY PRN Constipation, 10/29/22 06/12/25 gram/118 mL enema (Fleet Enema) if bisacodyl ineffective cranberry fruit 450 mg tablet 450 mg PO DAILY 08/22/23 06/12/25 (cranberry) insulin glargine 100 unit/mL (3 12 unit subcut BEDTIME 08/22/23 06/12/25 mL) subcutaneous pen (Lantus Solostar U-100 Insulin) phenytoin 50 mg chewable tablet 100 mg PO DAILY 08/22/23 06/12/25 ascorbic acid (vitamin C) 500 mg 500 mg PO DAILY 06/12/25 06/12/25 tablet benztropine 0.5 mg tablet 0.5 mg PO BID 06/12/25 06/12/25 empagliflozin 25 mg tablet 25 mg PO DAILY 06/12/25 06/12/25 (Jardiance) glucagon HCl 1 mg solution for 1 mg subcut Q15M PRN target blood 06/12/25 06/12/25 injection sugar attained levothyroxine 75 mcg tablet 75 mcg PO DAILY@0600 06/12/25 06/12/25 multivitamin 1 tab PO DAILY 06/12/25 06/12/25 naloxone 4 mg/actuation nasal 4 mg intranasal Q3M PRN suspected 06/12/25 06/12/25 spray (Narcan) opioid overdose oxycodone-acetaminophen 5 mg-325 1 tab PO Q6H PRN moderate knee pain 06/12/25 06/12/25 mg tablet (Percocet) phenytoin 50 mg chewable tablet 150 mg PO BEDTIME 06/12/25 06/12/25 sennosides 8.6 mg tablet 8.6 mg PO BID 06/12/25 06/12/25 tramadol 50 mg tablet 50 mg PO TID 06/12/25 06/12/25 Previous Rx's ?Medication ?Instructions ?Recorded levothyroxine 100 mcg tablet 100 mcg PO DAILY@0600 #30 tabs 08/27/23 (Synthroid) Allergies Allergy/AdvReac Type Severity Reaction Status Date / Time chlorpromazine Allergy Intermediate HIVES Verified 07/18/25 13:24 (CHLORPROMAZINE) Review of Systems Review of Systems: as per HPI Yes all other systems are reviewed and are negative Constitutional: Constitutional: Reports as per HPI Neurologic: Reports confusion Psychiatric: Psychiatric: Reports confusion [facility] Past Medical History Medical History (Updated 07/19/25 @ 03:51 by Pramod Bird PA-C) Avulsed tooth Seizure Adjustment reaction with mixed disturbance of emotions and conduct Anxiety Mood disorder Leiomyoma of body of uterus Preglaucoma Presbyopia UTI (urinary tract infection) Hypothermia Long QT syndrome Sepsis COVID-19 Cystitis Hyperkalemia ESBL (extended spectrum beta-lactamase) producing bacteria infection Essential (primary) hypertension Diabetic retinopathy Anxiety Mood disorder Dementia Subarachnoid hemorrhage following injury TBI (traumatic brain injury) Unspecified dementia with behavioral disturbance Seizure disorder Hypothyroid Hyperlipidemia Diabetes Surgical History Hx of tubal ligation Family History Family History Mother Breast cancer Social History Social History Household Members: Other Housing: [facility] Do you presently have visiting nurse or other home services: No Alcohol intake: never Patient Tobacco Use Status: Never used Tobacco Smoked in Last 30 Days: No Advance Directives: No Advance Directives Information Provided: No Advance Directives Date on File: 03/23/21 service: No Current occupational status: disabled Physical Exam ED Vital Signs: Vital Signs - 24 hr 07/18/25 13:18 07/18/25 14:06 07/18/25 16:20 Temperature 97.4 F Pulse Rate 102 H 100 101 H Respiratory Rate 16 16 16 Blood Pressure 152/79 H 150/75 H 126/88 Pulse Oximetry 99 98 97 Oxygen Delivery Method Room Air Room Air Room Air 07/18/25 16:35 07/18/25 16:50 07/18/25 17:05 Temperature Pulse Rate 103 H 106 H 104 H Respiratory Rate 16 16 15 Blood Pressure 146/65 H 146/67 H 145/69 H Pulse Oximetry 95 96 98 Oxygen Delivery Method Room Air Room Air Room Air 07/18/25 17:20 07/18/25 18:00 07/18/25 20:16 Temperature 99.4 F 97.0 F 97.4 F Pulse Rate 109 H 117 H 102 H Respiratory Rate 17 14 16 Blood Pressure 159/76 H 135/94 H 141/67 H Pulse Oximetry 96 97 97 Oxygen Delivery Method Room Air Room Air Room Air 07/18/25 22:33 Temperature 97.0 F Pulse Rate 108 H Respiratory Rate 16 Blood Pressure 135/66 Pulse Oximetry 98 Oxygen Delivery Method Room Air BMI result Body Mass Index 26.5 Vital signs have been reviewed and appear to be correct. Blood pressure normal. Heart rate normal. Respiratory rate normal. Temperature normal. Oxygen saturation normal. Const General: no acute distress, alert, awake and confusion; No ill appearing Nutritional Appearance: average body habitus Orientation/consciousness: confusion Limitations: altered mental status and behavioral limitations [facility] Head: Yes normocephalic and Yes atraumatic Ears: external ears normal General nose exam: Normal external nose present Face and sinus: Yes face symmetric Mouth: oropharynx normal and moist mucous membranes Throat: Yes uvula midline Eyes Pupils: Equal, round and reactive pupils present Neck Neck: Yes normal visual inspection and Yes supple Resp Effort & Inspection: normal respiratory effort and able to speak in complete sentences Auscultation: clear to auscultation bilaterally Cardio Rate: regular rate Rhythm: regular rhythm Heart sounds: S1 normal heart sound present and S2 normal heart sound present GI Palpation (GI): Soft to palpation and nontender Auscultation: normoactive bowel sounds General: Yes no CVA tenderness Back/Spine/Pelvis Back: no CVA tenderness Skin General skin exam: elasticity normal and turgor normal Neuro General: confusion Cranial nerves: Yes Equal, round and reactive pupils present Cognition (Neuro): normal cognition Extrem General: Yes full ROM, Yes no pedal edema and Yes no calf tenderness Psych Appearance: grossly normal Attitude: Refuses to answer (attititude/behavior) Course Course Course Narrative: 1834-- Rocío Aguirre NP Patient signed out to me from previous provider, pending imaging and VBG. Patient was ordered for CT imaging of the head given alteration in mentation as she is refusing medications, and CT of the abdomen and pelvis, as the previous provider felt that she had abdominal pain to palpation. UA negative for infection. Flat lactic. Hx TBI, traumatic subarachnoid hemorrhage, HCP invoked several years prior, patient does not have capacity to make own decisions and has been refusing meds at the facility. 1909-- I was informed by nursing staff as patient had no IV access. I was able to insert a peripheral 20 gauge IV into the right antecubital area. I was able to obtain lab work from this area. The VBG shows a pH of 7.38, beta hydroxybutyrate is mildly elevated, she is spilling glucose in the urine, but this is not DKA. We will administer a fluid bolus and recheck glucose level. Her lactic acid was flat at 1.6. I have no clinical suspicion for sepsis. I do have concern for some dehydration, hence the fluid bolus. She is currently resting in the stretcher, vitally stable. Pending CT imaging as ordered by previous provider. 2044-- Signed out to oncoming provider, MARIA R Benavidez Reevaluation(s) Reevaluation #1: 11:49 PM 07/18/2025 (Paloma HECK): Patient was signed out to this provider at shift change. In summary the patient is a 54-year-old female with a history of traumatic subarachnoid hemorrhage, presenting from [facility] for evaluation of increasing agitation and refusal of medication. The patient has had a healthcare proxy invoked for multiple years, does not have capacity to make her own medical decisions. The patient has been largely noncompliant with the evaluation while in the ED, majority of HPI was initially obtained from [facility] facility. Per sign-out the patient's metabolic workup was nondiagnostic. Patient was ordered for CT imaging of the head and abdomen which she was noncompliant with, also noncompliant with IV access. The patient received Valium and Haldol, and was signed out to another provider who was able to place IV access. The patient was still pending CT imaging at time of 2nd sign out to this provider. Patient received additional Valium to facilitate imaging, at this time patient has undergone CT imaging we are waiting interpretation. This provider was informed that during administration of IV contrast dye, patient became nauseous and vomited x1, patient received Zofran. We will await Radiology interpretation of imaging. Per sign-out the patient is appropriate for discharge back to care [address]. 3:41 AM 07/19/2025 (Paloma HECK): The patient's CT head showed no acute intracranial pathology. Patient's CT abdomen shows no evidence of small-bowel obstruction, nonspecific order intestinal wall thickening, possibly consistent with colitis, bibasilar atelectasis, and a nonspecific low-density of the left kidney with motion artifact, could be considered for pyelonephritis but no evidence of hydronephrosis. The patient's urinalysis does not appear infected. At this time patient will be discharged back to care 1 for continued management. Medications Administered Discontinued Medications Generic Name Dose Route Start Last Admin Trade Name Freq PRN Reason Stop Dose Admin Diazepam 2.5 mg 07/18/25 16:03 07/18/25 16:20 Diazepam 10 Mg/2 Ml Cartridge IM 07/18/25 16:04 2.5 mg STAT STA Administration Diazepam 5 mg 07/18/25 22:49 07/18/25 22:55 Diazepam 10 Mg/2 Ml Cartridge IVPUSH 07/18/25 22:50 5 mg STAT STA Administration Haloperidol Lactate 5 mg 07/18/25 16:03 07/18/25 16:20 Haloperidol Lactate 5 Mg/Ml Vial IM 07/18/25 16:04 5 mg STAT STA Administration Lactated Ringer's 1,000 mls @ 999 mls/hr 07/18/25 19:58 07/18/25 20:22 Lr IV 07/18/25 20:58 999 mls/hr .Q1H1M ONE Administration Iohexol 100 ml 07/18/25 23:31 07/18/25 23:32 Iohexol 350 Mg/Ml 100 Ml Infus..Btl IV 07/18/25 23:32 85 ml ONCE ONE Administration Ondansetron HCl 4 mg 07/18/25 23:33 07/18/25 23:40 Ondansetron Hcl 4 Mg/2 Ml Vial IVPUSH 07/18/25 23:34 4 mg ONCE ONE Administration Medical Decision Making Medical Decision Making [facility] Narrative: Patient is a 54-year-old female with pmhx of TBI, Subarachnoid hemorrhage, dementia, seizure disorder, mood disorder, anxiety, DM2, HTN, HLD, Hypothyroid, Prolonged QTc, COVID, Diabetic Neuropathy, Diabetic Retinopathy, Urinary Tract Infections, Leiomyomatous uterus, permanent HCP invoked presenting from [facility] for agitation and refusing medications for the past 2 days. Patient unable to participate in HPI. Will check viral serology, basic labs, UA. Differential includes viral illness, covid, flu, rsv, UTI, electrolyte abnormality. Labs notable for hyperglycemia with slight anion gap, beta-hydroxybutyrate added, no leukocytosis. Beta-hydroxybutyrate elevated, UA without evidence of infection. Rectal temp of 99.4, VBG ordered as well as CT head, CXR, CT A/P and blood cultures. Patient signed out to Rocío Romero NP pending imaging and additional labs. Differential Diagnosis Differential Diagnoses: The differential diagnosis associated with the presentation includes as per [facility] Admission/Observation Consideration of admission/observation: Escalation of care including admission/observation considered Lab Data [facility] Lab Attestation statement: I reviewed the patient's lab results. as per [facility] 07/18/25 15:34 07/18/25 15:34 Labs: Lab Results 07/18/25 07/18/25 07/18/25 Range/Units 15:34 17:24 19:31 WBC 5.4 (4.8-10.8) X10*3/uL RBC 4.19 L (4.20-5.50) X10*6/uL Hgb 11.8 L (12.0-16.0) g/dl Hct 36.9 L (37.0-47.0) % MCV 88.1 (80.0-98.0) fL MCH 28.2 (27.0-33.0) pg MCHC 32.0 (31.0-35.0) g/dl RDW 13.5 (11.0-16.0) % Plt Count 174 (160-400) X10*3/uL MPV 10.1 (9.4-12.3) fL Immature Gran % (Auto) 0.2 (0.0-0.4) % Neut % (Auto) 82.9 H (45-73) % Lymph % (Auto) 13.0 L (20-40) % [place] % (Auto) 3.7 (2-11) % Eos % (Auto) 0.0 (0-4) % Baso % (Auto) 0.2 (0-2) % Lymph # (Auto) 0.7 L (1.2-4.9) X10*3/uL [place] # (Auto) 0.2 (0.1-1.2) X10*3/uL Eos # (Auto) 0.0 (0.0-0.4) X10*3/uL Baso # (Auto) 0.0 (0.0-0.2) X10*3/uL Abs Immat Gran (auto) 0.01 (0.00-0.03) X10*3/uL Absolute Neuts (auto) 4.5 (2.0-8.3) x10*3/uL Absolute Nucleated RBC 0.000 (0.0-0.012) X10*3/uL Nucleated RBC % (auto) 0.0 (0.0-0.2) /100WBC Hold Blue Top SEE NOTE VBG pH (7.32-7.43) VBG pCO2 mmHg VBG pO2 mmHg VBG HCO3 (22-26) mmol/L VBG O2 Saturation % VBG Base Excess mmol/L Sodium 143 (135-145) mmol/L Potassium 5.0 (3.3-5.1) mmol/L Chloride 105 (96-108) mmol/L Carbon Dioxide 21 L (22-29) mmol/L Anion Gap 22 H (12-20) BUN 26 H (9-16) mg/dL Creatinine 1.22 (0.5-1.4) mg/dL Estim Creat Clear Calc 57.5 Estimated GFR 46 Random Glucose 285 H (60-115) mg/dL Lactic Acid 1.6 (0.5-2.0) mmol/L Calcium 10.0 D (8.4-10.2) mg/dL Magnesium 1.8 (1.6-2.6) mg/dL Total Bilirubin 0.1 (0.0-1.0) mg/dL AST 34 H (5-31) U/L ALT 26 (0-31) U/L Alkaline Phosphatase 185 H (39-117) U/L Total Protein 8.4 H (6.5-8.0) g/dL Albumin 4.6 (3.5-5.0) g/dL Beta-Hydroxybutyrate 3.87 H (0.02-0.27) mmol/L Urine Color Yellow Urine Appearance Clear Urine pH 5.0 (5.0-9.0) Ur Specific [place] 1.025 (1.005-1.025) Urine Protein 30 (1+) H (Neg-Trace) mg/dL Urine Glucose (UA) >=1000 H (Negative) mg/dL Urine Ketones 40 (Negative) mg/dL Urine Blood Trace H (Negative) Urine Nitrite Negative (Negative) Ur Leukocyte Esterase Negative (Negative) Urine RBC 0-2 (0-2) /HPF Urine WBC 0-5 (0-5) /HPF Ur Squamous Epith Cells 0-2 (0-2) /HPF Urine Bacteria None Seen (None Seen) Hyaline Casts 0-2 (0-2) /LPF 07/18/ Range/Units 19:37 WBC (4.8-10.8) X10*3/uL RBC (4.20-5.50) X10*6/uL Hgb (12.0-16.0) g/dl Hct (37.0-47.0) % MCV (80.0-98.0) fL MCH (27.0-33.0) pg MCHC (31.0-35.0) g/dl RDW (11.0-16.0) % Plt Count (160-400) X10*3/uL MPV (9.4-12.3) fL Immature Gran % (Auto) (0.0-0.4) % Neut % (Auto) (45-73) % Lymph % (Auto) (20-40) % [place] % (Auto) (2-11) % Eos % (Auto) (0-4) % Baso % (Auto) (0-2) % Lymph # (Auto) (1.2-4.9) X10*3/uL [place] # (Auto) (0.1-1.2) X10*3/uL Eos # (Auto) (0.0-0.4) X10*3/uL Baso # (Auto) (0.0-0.2) X10*3/uL Abs Immat Gran (auto) (0.00-0.03) X10*3/uL Absolute Neuts (auto) (2.0-8.3) x10*3/uL Absolute Nucleated RBC (0.0-0.012) X10*3/uL Nucleated RBC % (auto) (0.0-0.2) /100WBC Hold Blue Top VBG pH 7.38 (7.32-7.43) VBG pCO2 32 mmHg VBG pO2 101 mmHg VBG HCO3 19 L (22-26) mmol/L VBG O2 Saturation 98.0 % VBG Base Excess -4.9 mmol/L Sodium (135-145) mmol/L Potassium (3.3-5.1) mmol/L Chloride (96-108) mmol/L Carbon Dioxide (22-29) mmol/L Anion Gap (12-20) BUN (9-16) mg/dL Creatinine (0.5-1.4) mg/dL Estim Creat Clear Calc Estimated GFR Random Glucose (60-115) mg/dL Lactic Acid (0.5-2.0) mmol/L Calcium (8.4-10.2) mg/dL Magnesium (1.6-2.6) mg/dL Total Bilirubin (0.0-1.0) mg/dL AST (5-31) U/L ALT (0-31) U/L Alkaline Phosphatase (39-117) U/L Total Protein (6.5-8.0) g/dL Albumin (3.5-5.0) g/dL Beta-Hydroxybutyrate (0.02-0.27) mmol/L Urine Color Urine Appearance Urine pH (5.0-9.0) Ur Specific [place] (1.005-1.025) Urine Protein (Neg-Trace) mg/dL Urine Glucose (UA) (Negative) mg/dL Urine Ketones (Negative) mg/dL Urine Blood (Negative) Urine Nitrite (Negative) Ur Leukocyte Esterase (Negative) Urine RBC (0-2) /HPF Urine WBC (0-5) /HPF Ur Squamous Epith Cells (0-2) /HPF Urine Bacteria (None Seen) Hyaline Casts (0-2) /LPF External Record Review External record reviewed: Inpatient record, Office record and Outpatient record Discharge Plan Discharge Clinical Impression: Agitation Patient Disposition: Home, Self-Care Additional Instructions: Thank you for choosing [facility]'s Emergency Department for your care today. Thankfully your chest x-ray, urinalysis, laboratory evaluation, CT head, and CT abdomen today show no evidence of an acute emergent process requiring surgical intervention, admission to the hospital or continued ED observation, and it is safe to discharge you home. Your urinalysis does not show evidence of a UTI, your labs show no evidence of significant dehydration, electrolyte abnormalities, bacterial infections, significant anemia or other acute process. Your chest x-ray shows no evidence pneumonia, and your head CT shows no evidence of a neurologic cause for your symptoms. Please continue taking your regularly prescribed medications as directed. Please stay well hydrated and get plenty of rest. Please follow up with your primary care physician for re-evaluation, additional management of your symptoms, and continued preventative care. If you do not have a primary care physician, please call the [facility] at [phone] to establish a new primary care physician. While waiting to establish your new primary care physician, you can call our Walk[facility]in [facility] at [phone] for non-emergency needs. Please return to the emergency department if you develop a severe or sudden change in your symptoms, a fever over 100.4 that does not improve with Tylenol or Ibuprofen, recurrent vomiting, or any other new or worsening symptoms or concerns. Prescriptions: No Action oxcarbazepine [Trileptal] 150 mg Tablet 150 mg PO DAILY sennosides [senna] 8.6 mg Tablet 8.6 mg PO DAILY PRN (Reason: Constipation) acetaminophen 325 mg Tablet 650 mg PO Q12H PRN (Reason: Fever Or Pain) gabapentin 600 mg Tablet 600 mg PO TID haloperidol 5 mg Tablet 5 mg PO BID atorvastatin 10 mg Tablet 10 mg PO BEDTIME oxcarbazepine [Trileptal] 300 mg Tablet 300 mg PO BEDTIME guaifenesin 100 mg/5 mL Liquid 200 mg PO Q4H PRN (Reason: Cough) insulin aspart U-100 [Novolog U-100 Insulin aspart] 100 unit/mL Solution 1 sliding scale dose SUBCUT USEASDIRECTD Protocol: Insulin Correction Scale Less than or equal to 110 ---- Give (units): 0 111 to 150 Give (units): 0 151 to 200 Give (units): 2 201 to 250 Give (units): 4 251 to 300 Give (units): 6 301 to 350 Give (units): 8 Greater than 350 Give (units): 10 Call MD if Blood Glucose > : 350 metformin 1,000 mg Tablet 1,000 mg PO BID haloperidol 10 mg Tablet 10 mg PO BID benztropine 1 mg Tablet 1 mg PO BID Fleet Enema 19-7 gram/118 mL Enema 118 ml GA DAILY PRN (Reason: Constipation, if bisacodyl ineffective) docusate sodium 100 mg Capsule 100 mg PO BID hydroxyzine HCl 25 mg Tablet 25 mg PO BID ibuprofen 600 mg Tablet 600 mg PO Q8H PRN (Reason: Moderate Pain (Scale Score 5-6)) levetiracetam 1,000 mg Tablet 1,000 mg PO BID calcium carbonate-vitamin D3 [Calcium 600 + D(3)] 600 mg-10 mcg (400 unit) Tablet 1 tab PO BID cholecalciferol (vitamin D3) 1,250 mcg (50,000 unit) Capsule 1,250 mcg PO MO@0900 ferrous sulfate 324 mg (65 mg iron) Tablet,Delayed Release (Dr/Ec) 324 mg PO DAILY phenytoin 50 mg Tablet,Chewable 100 mg PO DAILY cranberry 450 mg Tablet 450 mg PO DAILY Rx Instructions: administer with a meal insulin glargine [Lantus Solostar U-100 Insulin] 100 unit/mL (3 mL) insulin pen 12 unit SUBCUT BEDTIME Rx Instructions: HOLD IF DINNER NOT CONSUMED levothyroxine [Synthroid] 100 mcg Tablet 100 mcg PO DAILY@0600 Qty: 30 0RF multivitamin Tablet 1 tab PO DAILY sennosides 8.6 mg Tablet 8.6 mg PO BID benztropine 0.5 mg Tablet 0.5 mg PO BID phenytoin 50 mg Tablet,Chewable 150 mg PO BEDTIME tramadol 50 mg Tablet 50 mg PO TID levothyroxine 75 mcg Tablet 75 mcg PO DAILY@0600 oxycodone-acetaminophen [Percocet] 5-325 mg Tablet 1 tab PO Q6H PRN (Reason: moderate knee pain) ascorbic acid (vitamin C) 500 mg Tablet 500 mg PO DAILY Jardiance 25 mg Tablet 25 mg PO DAILY naloxone [Narcan] 4 mg/actuation [place],Non-Aerosol 4 mg INTRANASAL Q3M PRN (Reason: suspected opioid overdose) Rx Instructions: spray 1 dose into ONE nostril; alternate nostrils w each dose until help arrives glucagon HCl 1 mg Recon Soln 1 mg SUBCUT Q15M MDD 2 PRN (Reason: target blood sugar attained) Rx Instructions: until target blood sugar attained Print Language: Wallisian
[2025-07-18 15:39] LABS: Hematocrit 36.9 % (37.0-47.0); Hemoglobin 11.8 g/dl (12.0-16.0); Imm Gran Abs Auto 0.01 X10*3/uL (0.00-0.03); Imm Gran Pct Auto 0.2 % (0.0-0.4); Lymphocytes Absolute Auto 0.7 X10*3/uL (1.2-4.9); MANUAL DIFF FLAG NO; Mean Corpuscular HGB Conc 32.0 g/dl (31.0-35.0); Mean Corpuscular Hemoglobin 28.2 pg (27.0-33.0); Mean Corpuscular Volume 88.1 fL (80.0-98.0); NRBC Abs Auto 0.000 X10*3/uL (0.0-0.012); NRBC Pct Auto 0.0 /100WBC (0.0-0.2); Platelet Count 174 X10*3/uL (160-400); Red Blood Count 4.19 X10*6/uL (4.20-5.50); White Blood Count 5.4 X10*3/uL (4.8-10.8)
[2025-07-18 15:59] LABS: Alanine Aminotransferase 26 U/L (0-31); Albumin Level 4.6 g/dL (3.5-5.0); Alkaline Phosphatase 185 U/L (39-117); Anion Gap 22 (12-20); Aspartate Amino Transferase 34 U/L (5-31); Blood Urea Nitrogen 26 mg/dL (9-16); Calcium 10.0 mg/dL (8.4-10.2); Carbon Dioxide 21 mmol/L (22-29); Chloride 105 mmol/L (96-108); Creatinine Clr Calc Pharmacy 57.5; Estimated Glomerular Filt Rate 46; Magnesium 1.8 mg/dL (1.6-2.6); Potassium 5.0 mmol/L (3.3-5.1); Sodium 143 mmol/L (135-145); Total Protein 8.4 g/dL (6.5-8.0)
[2025-07-18] MEDS: diazePAM 10 MG/2 ML CARTRIDGE 2.5 MG IM (16:20)
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
[2025-07-18 17:41] LABS: Appearance Urine Clear; Glucose Urine UA >=1000 mg/dL (Negative); PH 5.0 (5.0-9.0); Specific Gravity - Urine 1.025 (1.005-1.025); UMIC TRIGGER UACC YES
--- NOTE | 2025-07-18 19:15 | PC.NURSE ---
this RN assumed care of this pt @1900, pt noted to be sitting in hospital stretcher, staring blankly, respirations even and unlabored, IV line placed w. provider and previous RN, blood work obtained and sent to the lab
[2025-07-18 19:41] LABS: Venous Blood Gas Refer to POC result
[2025-07-18 19:42] LABS: VBG HCO3 19 mmol/L (22-26); VBG O2 % Saturation 98.0 %
[2025-07-18] MEDS: Lactated Ringers 1,000 ML 999 ML IV (20:22)
--- NOTE | 2025-07-18 21:50 | PC.NURSE ---
pt IVF delayed, pt AMS and resistant to care, arm bent and not following basic commands needing consistent redirection, currently approximately 200mL infused at this time
--- NOTE | 2025-07-18 22:41 | PC.NURSE ---
pt noted to be laying at the end of the hospital stretcher w/ puddle of urine at her feet, pt was redirected and repositioned in hospital stretcher, cleaned and given fresh bedsheets and non-slip socks, chair alarm placed on pt for safety, pt partly aggressive during change
--- NOTE | 2025-07-18 22:43 | PC.NURSE ---
pt IVF currently has had approximately 500 mL infused at this time
[2025-07-18] MEDS: diazePAM 10 MG/2 ML CARTRIDGE 5 MG IVPUSH (22:55)
--- NOTE | 2025-07-18 23:15 | PC.NURSE ---
pt being brought to CT for imaging, IVF paused at this time, approximately 600 has been infused, pt continues to bend arm
[2025-07-18] MEDS: iohexoL 350 MG/ML 100 ML INFUS..BTL IV (23:32)
--- NOTE | 2025-07-18 23:45 | PC.NURSE ---
pt returned from CT scan, IVF continued, pt directed to keep arm straight, slight compliance, fluids flowing
[2025-07-19] VITALS: RESP 18
[2025-07-19 02:00] VITALS: RESP 17
[2025-07-19 04:00] VITALS: RESP 18
[2025-07-19 04:41] LABS: Resp Syncy Virus RNA Qual PCR NEGATIVE (Negative); SARS COV2 PCR INHOUSE NEGATIVE (Negative)
[2025-07-19 05:24] VITALS: BP 0/0; PULSE 0; RESP 18; TEMP -17.7; TEMP 0; O2SAT 0
--- NOTE | 2025-08-05 11:30 | PC.NURSE ---
IVF infusion of 1L of LR hung on this pt @2021, infusion completed approximately @0030 on 07/19/2025, 1L of LR infused
== END 2025-07-19 05:26 ==
PROVIDERS: Registered Nurse Emergency; Emergency Provider Emergency Medicine Emergency Medical Services
DX: R45.1 Restlessness and agitation (principal); F03.90 Unspecified dementia, unspecified severity, without behavioral disturbance, psychotic disturbance, mood disturbance, and anxiety; I10 Essential (primary) hypertension; E11.65 Type 2 diabetes mellitus with hyperglycemia; G40.909 Epilepsy, unspecified, not intractable, without status epilepticus; Z87.820 Personal history of traumatic brain injury; Z88.8 Allergy status to other drugs, medicaments and biological substances
CPT/HCPCS: 36410; 36415; 70450; 71045; 74160; 80053; 81001; 82010; 82803; 83605; 83735; 85025; 87040; 87637; 96372; 96374; 96375; 99285; J1630; J2405; J3360; J7120; Q9967

== ENCOUNTER → 2025-07-18 18:18 | Outpatient (BNV) | payer MEDICAID, SELFPAY | PROVIDERS: Emergency Provider Emergency Medicine Emergency Medical Services; Visit Provider Student in an Organized Health Care Education/Training Program | DX: R00.0 Tachycardia, unspecified (principal) | CPT/HCPCS: 70450; 71045; 74160 ==

== ENCOUNTER 2025-07-20 11:07 | Inpatient (IN) | payer MEDICAID, SELFPAY ==
--- NOTE | 2025-07-20 | ECG_ITS ---
Test Reason : HYPERKALEMIA Blood Pressure : */* mmHG Vent. Rate : 101 BPM Atrial Rate : 101 BPM P-R Int : 158 ms QRS Dur : 74 ms QT Int : 352 ms P-R-T Axes : 81 11 63 degrees QTcB Int : 456 ms Sinus tachycardia Biatrial enlargement Abnormal ECG When compared with ECG of 20-Jul-2025 11:39, No significant change was found Referred By: Adilene Salinas Electronically Signed By: TEE JACOB
--- NOTE | 2025-07-20 | EEG_ITS ---
History: 54-year-old female with a history of TBI, dementia, seizure disorder (on Dilantin and Keppra) with prior episodes of Dilantin toxicity, SAH, anxiety/mood disorder, DM, HTN, HLD, hypothyroidism, and recurrent UTIs, residing at [facility], was brought to the ED by EMS for acute mental status roving changer the past day. Nursing facility reports no witnessed seizure, fall, trauma, fever, or chills. She was noted to have significantly elevated blood glucose earlier in the day and received insulin prior to transfer. No recent medication changes were reported. On arrival, the patient appeared catatonic and non-responsive to exam. She was unable to provide history. Initial ED workup showed hyperglycemia, mild ketonemia, hypernatremia, and normal anion gap with normal bicarbonate. CT head was unremarkable. No evidence of acute infection was reported from the facility. Medication: keppra, dilantin, insulin - full list not available Technical Description Photic Stimulation: completed Hyperventilation: omitted Behavioral State: pt closes eyes to fear, pt did not respond verbally to commands- pt is not at baseline (nurse states pt talks and is active at home) State of Consciousness: awake Skull Defect: no Sedation: no Handedness: unknown Duration: 21 min 49 secs Last Meal: unknown Description: This is a 16 channel EEG with an EKG lead. Patient is reported to be awake but somewhat fearful not responding to commands. Background EEG rhythm is theta to delta range with somewhat slower in left hemispheric lead with intermittent left temporal sharp waves. Photic stimulation did not produce any significant abnormality. Hyperventilation was not performed. Cardiac lead did not reveal any significant abnormality. Impression: Abnormal EEG revealing bihemispheric slowing but also intermittent left temporal epileptic discharges. MTDD
--- NOTE | ~2025-07-20 | CT_ITS ---
EXAMINATION: CT HEAD WITHOUT CONTRAST CLINICAL INFORMATION: mental status change COMPARISON: July 18, 2025 TECHNIQUE: Contiguous axial imaging was performed from the skull base to vertex without intravenous administration of contrast. This CT examination was performed using dose optimization techniques as appropriate, variously including the following: *Automated exposure control *Adjustment of mA and/or kV according to patient size (this includes techniques or standardized protocols for targeted exams where dose is matched to indication/reason for exam; i.e. extremities or head) *Use of iterative reconstruction technique DLP: 642 mGy-cm FINDINGS: No acute intracranial hemorrhage, mass effect, midline shift, hydrocephalus or herniation. Gomez-white matter differentiation is normal. Sellar/suprasellar region demonstrated no gross masses. Craniocervical junction is intact with normal position of the cerebellar tonsils. No acute fracture in the bony calvarium. Hyperostosis frontalis. No air-fluid levels in the paranasal sinuses. Tympanic cavities and mastoid cells are aerated. Pneumatized petrous apices, congenital. CT/CT head/brain wo IV con IMPRESSION: No acute intracranial hemorrhage or acute brain abnormality by CT. Electronically signed by: Luiz Espinoza MD 07/20/2025 01:11 PM [facility]
--- NOTE | ~2025-07-20 | XR_ITS ---
EXAMINATION: XR CHEST CLINICAL INFORMATION: mental status change COMPARISON: 07/18/25 TECHNIQUE: Frontal view of the chest was obtained. FINDINGS: No significant abnormality is noted involving the heart, lungs, mediastinum, bony thorax or soft tissues. XR/XR chest 1V IMPRESSION: No acute disease. Electronically signed by: Marcelino Ray MD 07/20/2025 12:49 PM [facility]
--- NOTE | ~2025-07-20 | CT_ITS ---
CLINICAL HISTORY: lethargy CT head without contrast Comparison: CT/SR - CT HEAD WITHOUT IV CONTRAST - 07/20/25 12:[address]/SR - CT HEAD/BRAIN WO IV CON - 07/18/25 23:18 EST Findings: No intra-axial mass, midline shift, hydrocephalus, or acute hemorrhage. No significant atrophy-like change or white matter disease. The visualized paranasal sinuses and mastoid air cells are normal. The orbits are unremarkable. No skull fracture. IMPRESSION: 1. No acute intracranial findings. This document has been electronically signed by: Hema Su MD on 07/24/2025 13:06:57
--- NOTE | ~2025-07-20 | XR_ITS ---
CLINICAL HISTORY: edema --- Additional Notes or Special Instructions: Nurse is going to call us when patient is ready for x-rays ([id number] 2 views left humerus Comparison: 05/15/2024 Findings: Similar alignment, healing mid humeral shaft fracture with interval progression of the healing and callus formation since the prior exam. No new fractures.. No significant arthritic change. No radiopaque foreign body. Impression: 1. Similar alignment, healing humeral shaft fracture. This document has been electronically signed by: Florencio Muñiz MD on 07/22/2025 18:29:56
--- NOTE | ~2025-07-20 | US_ITS ---
EXAMINATION: US TRIPLEX UPPER EXTREMITY, LEFT CLINICAL INFORMATION: Swelling, left upper lateral arm. COMPARISON: None available. Correlation made with left humeral radiographs 07/22/2025. TECHNIQUE: Color-flow triplex imaging with spectral analysis and compression Doppler was performed on the left upper extremity. Grayscale and color Doppler imaging of the left upper lateral arm was also performed in the area of concern. FINDINGS: The left internal jugular, subclavian, and axillary veins are patent and free of thrombus. The imaged segment of the left brachiocephalic vein is patent. Spectral doppler waveforms are normal. The brachial, basilic, cephalic, radial, and ulnar veins are patent and compressible. In the area of concern, in the left mid lateral upper arm, there is no sonographic abnormality evident. No mass, abnormal lymph nodes, fluid collection, or other abnormality. US/US venous duplex UE LT IMPRESSION: 1. No evidence of deep venous thrombosis involving the left upper extremity. 2. No sonographic abnormality in the left upper lateral arm, in the area of concern. Electronically signed by: Pramod Black MD 07/23/2025 10:27 AM [facility]
--- NOTE | ~2025-07-20 | XR_ITS ---
CLINICAL HISTORY: RIJ placement Exam: AP portable chest x-ray. Comparison: July 18, 2025. Findings: Interval placement of a right internal jugular central venous catheter with tip projected at the cavoatrial junction. No pneumothorax. Lungs are well inflated. Cardiac silhouette is within normal limits. No focal areas of consolidation. Impression: No pneumothorax after central line placement. This document has been electronically signed by: Lewis Dobbins MD on 07/23/2025 01:41:44
[2025-07-20 11:20] VITALS: BP 143/89; PULSE 108; O2SAT 93
--- NOTE | 2025-07-20 11:22 | ED.AMS ---
HPI - Altered Mental Status General Chief Complaint: Altered Mental Status Stated Complaint: HIGH BLOOD SUGAR Time Seen by Provider: 07/20/25 11:10 Source: patient, EMS and old records reviewed Mode of arrival: EMS Limitations: no limitations History of Present Illness ED Provider: DR. Delgado HPI narrative: 54-year-old female with PMHx for TBI, dementia, seizure disorder on Dilantin, SAH, anxiety, mood disorder, DM, HTN, HLD, hypothyroidism, history of UTI, patient is resident at [facility] patient was brought in by EMS for further evaluation of mental status change x1 day, no report from custodial of fall or injury, no fever, no chills, no head injury, found to have high blood sugar at the nursing that was treated with insulin at the custodial, no reported witnessed seizure at the custodial, patient had a history of elevated Dilantin level. Related Data Home Medications ?Medication ?Instructions ?Recorded ?Confirmed acetaminophen 325 mg tablet 650 mg PO Q12H PRN Fever Or Pain 10/29/22 06/12/25 atorvastatin 10 mg tablet 10 mg PO BEDTIME 10/29/22 06/12/25 benztropine 1 mg tablet 1 mg PO BID 10/29/22 06/12/25 calcium 600 mg (as 1 tab PO BID 10/29/22 06/12/25 carbonate)-vitamin D3 10 mcg (400 unit) tablet (Calcium 600 + D(3)) cholecalciferol (vitamin D3) 1,250 1,250 mcg PO MO@0900 10/29/22 06/12/25 mcg (50,000 unit) capsule docusate sodium 100 mg capsule 100 mg PO BID 10/29/22 06/12/25 ferrous sulfate 324 mg (65 mg 324 mg PO DAILY 10/29/22 06/12/25 iron) tablet,delayed release gabapentin 600 mg tablet 600 mg PO TID 10/29/22 06/12/25 guaifenesin 100 mg/5 mL oral liquid 200 mg PO Q4H PRN Cough 10/29/22 06/12/25 haloperidol 10 mg tablet 10 mg PO BID 10/29/22 06/12/25 haloperidol 5 mg tablet 5 mg PO BID 10/29/22 06/12/25 hydroxyzine HCl 25 mg tablet 25 mg PO BID 10/29/22 06/12/25 ibuprofen 600 mg tablet 600 mg PO Q8H PRN Moderate Pain 10/29/22 06/12/25 (Scale Score 5-6) insulin aspart U-100 100 unit/mL 1 sliding scale dose subcut 10/29/22 06/12/25 subcutaneous solution (Novolog USEASDIRECTD U-100 Insulin aspart) levetiracetam 1,000 mg tablet 1,000 mg PO BID 10/29/22 06/12/25 metformin 1,000 mg tablet 1,000 mg PO BID 10/29/22 06/12/25 oxcarbazepine 150 mg tablet 150 mg PO DAILY 10/29/22 06/12/25 (Trileptal) oxcarbazepine 300 mg tablet 300 mg PO BEDTIME 10/29/22 06/12/25 (Trileptal) sennosides 8.6 mg tablet (senna) 8.6 mg PO DAILY PRN Constipation 10/29/22 06/12/25 sodium phosphates 19 gram-7 118 ml WI DAILY PRN Constipation, 10/29/22 06/12/25 gram/118 mL enema (Fleet Enema) if bisacodyl ineffective cranberry fruit 450 mg tablet 450 mg PO DAILY 08/22/23 06/12/25 (cranberry) insulin glargine 100 unit/mL (3 12 unit subcut BEDTIME 08/22/23 06/12/25 mL) subcutaneous pen (Lantus Solostar U-100 Insulin) phenytoin 50 mg chewable tablet 100 mg PO DAILY 08/22/23 06/12/25 ascorbic acid (vitamin C) 500 mg 500 mg PO DAILY 06/12/25 06/12/25 tablet benztropine 0.5 mg tablet 0.5 mg PO BID 06/12/25 06/12/25 empagliflozin 25 mg tablet 25 mg PO DAILY 06/12/25 06/12/25 (Jardiance) glucagon HCl 1 mg solution for 1 mg subcut Q15M PRN target blood 06/12/25 06/12/25 injection sugar attained levothyroxine 75 mcg tablet 75 mcg PO DAILY@0600 06/12/25 06/12/25 multivitamin 1 tab PO DAILY 06/12/25 06/12/25 naloxone 4 mg/actuation nasal 4 mg intranasal Q3M PRN suspected 06/12/25 06/12/25 spray (Narcan) opioid overdose oxycodone-acetaminophen 5 mg-325 1 tab PO Q6H PRN moderate knee pain 06/12/25 06/12/25 mg tablet (Percocet) phenytoin 50 mg chewable tablet 150 mg PO BEDTIME 06/12/25 06/12/25 sennosides 8.6 mg tablet 8.6 mg PO BID 06/12/25 06/12/25 tramadol 50 mg tablet 50 mg PO TID 06/12/25 06/12/25 Previous Rx's ?Medication ?Instructions ?Recorded levothyroxine 100 mcg tablet 100 mcg PO DAILY@0600 #30 tabs 08/27/23 (Synthroid) Allergies Allergy/AdvReac Type Severity Reaction Status Date / Time chlorpromazine Allergy Intermediate HIVES Verified 07/20/25 11:32 (CHLORPROMAZINE) Review of Systems Review of Systems: All other systems are reviewed and are negative Constitutional: Reports as per HPI and Reports no additional constitutional complaints Eyes: Reports as per HPI and Reports no additional eye complaints Reports system reviewed and no additional complaints, except as documented Cardiovascular: Reports as per HPI and Reports no additional cardiovascular complaints Respiratory: Reports as per HPI and Reports no additional respiratory complaints Gastrointestinal: Reports as per HPI and Reports no additional gastrointestinal complaints Genitourinary: Reports no additional female genitourinary complaints Musculoskeletal: Reports no additional musculoskeletal complaints Skin/Breast: Reports system reviewed and no additional complaints, except as docu Psychiatric: Reports no additional psychiatric complaints Endocrine: Reports no additional endocrine complaints Hematologic/Lymphatic: Reports no additional hematologic/lymphatic complaints Allergic/Immunologic: Reports no additional allergic/immunologic complaints Reports system reviewed and no additional complaints, except as documented and Reports Abnormal speech present [facility] Past Medical History Medical History Avulsed tooth Seizure Adjustment reaction with mixed disturbance of emotions and conduct Anxiety Mood disorder Leiomyoma of body of uterus Preglaucoma Presbyopia UTI (urinary tract infection) Hypothermia Long QT syndrome Sepsis COVID-19 Cystitis Hyperkalemia ESBL (extended spectrum beta-lactamase) producing bacteria infection Essential (primary) hypertension Diabetic retinopathy Anxiety Mood disorder Dementia Subarachnoid hemorrhage following injury TBI (traumatic brain injury) Unspecified dementia with behavioral disturbance Seizure disorder Hypothyroid Hyperlipidemia Diabetes Surgical History Hx of tubal ligation Family History Family History Mother Breast cancer Social History Social History Household Members: Other Housing: [facility] Do you presently have visiting nurse or other home services: No Alcohol intake: never Patient Tobacco Use Status: Never used Tobacco Smoked in Last 30 Days: No Use of substances other than those prescribed or required for medical reasons: No Advance Directives: Yes Advance Directives on File: Yes Advance Directives Date on File: 03/23/21 Do you have a plan to hurt others: No Plan service: No Current occupational status: disabled Physical Exam ED Vital Signs: Vital Signs - 24 hr 07/20/25 11:24 07/20/25 13:50 Temperature 97.8 F 98.4 F Pulse Rate 111 H 114 H Respiratory Rate 18 20 Blood Pressure 140/77 H 152/78 H Pulse Oximetry 96 Oxygen Delivery Method Room Air Room Air BMI result Body Mass Index 27.1 Vital signs have been reviewed and appear to be correct. Blood pressure elevated. Heart rate normal. Respiratory rate normal. Temperature normal. Oxygen saturation normal. Appearance: Mute no verbal response, regards examiner, poor eye contact, No acute distress. Head: Normal external exam. Normocephalic. Atraumatic. No Austin signs noted. No raccoon eyes noted Eyes: PERRLA. EOMI. Conjunctiva and sclera normal. Eyelids normal. ENT: TM's Normal. Pharynx normal. Uvula midline. Moist mucous membranes. No trismus noted. No drooling noted. No muffled voice noted. Neck: Normal inspection. Neck supple. FROM. No adenopathy. Thyroid Normal. No meningeal signs. No neck mass noted. CVS: Normal heart rate and rhythm. Heart sound normal. No murmurs noted. Pulses normal throughout. Respiratory: No respiratory distress. Painless inspiration. Breath sounds normal. No wheezes/rales/rhonchi noted. Chest nontender. No accessory muscle usage noted or decreased air movement noted. Abdomen: Soft and nontender. Bowel sounds normal in all 4 quadrants. No distention noted. No organomegaly noted. No visible injury noted. Back: No CVA tenderness. Full range of motion noted. Skin: Skin warm and dry. Normal skin color. Normal skin turgor. No rashes/lesions/lacerations noted. Extremities: No lower extremity edema. Extremities exhibit normal range of motion. Extremities nontender. Neuro: Cranial nerve exam: II-XII are grossly intact No motor deficit. No sensory deficit. Reflexes normal. Course Reevaluation(s) Reevaluation #1: 54-year-old female from [facility] for evaluation of change mental status. 1. Hyperglycemia with no indication for DKA, normal anion gap and bicarb with slight elevation of hydroxybutyric acid. 2. No acute neurological deficit with normal CT head. 3. No source of infection or sepsis. 4. Hypernatremia will hydrate with LR Gently. 5. Acute on chronic renal damage. Time: 15:11 Medications Administered Discontinued Medications Generic Name Dose Route Start Last Admin Trade Name Freq PRN Reason Stop Dose Admin Lactated Ringer's 1,000 mls @ 999 mls/hr 07/20/25 13:45 07/20/25 13:47 Lr IV 07/20/25 14:45 999 mls/hr .Q1H1M TOM Administration Phenytoin Sodium 100 mg 07/20/25 13:08 07/20/25 13:43 Phenytoin Sodium 100 Mg/2 Ml Vial IVPUSH 07/20/25 13:09 100 mg ONCE ONE Administration Medical Decision Making Differential Diagnosis Differential Diagnoses: The differential diagnosis associated with the presentation includes ( Intracranial bleed, stroke, electrolyte derangement, severe anemia, dehydration, UTI, pneumonia, pneumothorax, pleural effusion , hyperammonemia.) Admission/Observation Consideration of admission/observation: Escalation of care including admission/observation considered Consult Healthcare Provider Management of the patient was discussed with: Hospitalist ( Dr. Daniels) Lab Data MDM Lab Attestation statement: I reviewed the patient's lab results. 07/20/25 12:29 07/20/25 12:29 Labs: Lab Results 07/20/25 07/20/25 07/20/25 Range/Units 12:29 12:36 14:06 WBC 11.0 H (4.8-10.8) X10*3/uL RBC 4.02 L (4.20-5.50) X10*6/uL Hgb 11.3 L (12.0-16.0) g/dl Hct 34.8 L (37.0-47.0) % MCV 86.6 (80.0-98.0) fL MCH 28.1 (27.0-33.0) pg MCHC 32.5 (31.0-35.0) g/dl RDW 13.8 (11.0-16.0) % Plt Count 198 (160-400) X10*3/uL MPV 9.6 (9.4-12.3) fL Immature Gran % (Auto) 0.5 H (0.0-0.4) % Neut % (Auto) 77.6 H (45-73) % Lymph % (Auto) 10.1 L (20-40) % [place] % (Auto) 11.7 H (2-11) % Eos % (Auto) 0.0 (0-4) % Baso % (Auto) 0.1 (0-2) % Lymph # (Auto) 1.1 L (1.2-4.9) X10*3/uL [place] # (Auto) 1.3 H (0.1-1.2) X10*3/uL Eos # (Auto) 0.0 (0.0-0.4) X10*3/uL Baso # (Auto) 0.0 (0.0-0.2) X10*3/uL Abs Immat Gran (auto) 0.05 H (0.00-0.03) X10*3/uL Absolute Neuts (auto) 8.5 H (2.0-8.3) x10*3/uL Absolute Nucleated RBC 0.000 (0.0-0.012) X10*3/uL Nucleated RBC % (auto) 0.0 (0.0-0.2) /100WBC PT 12.7 (11.2-13.5) SEC INR 1.0 (0.9-1.1) VBG pH 7.33 (7.32-7.43) VBG pCO2 52 mmHg VBG pO2 78 mmHg VBG HCO3 27 H (22-26) mmol/L VBG O2 Saturation 89.0 % VBG Base Excess 1.3 mmol/L Sodium 150 H (135-145) mmol/L Potassium 4.0 (3.3-5.1) mmol/L Chloride 110 H (96-108) mmol/L Carbon Dioxide 28 (22-29) mmol/L Anion Gap 16 (12-20) BUN 58 H (9-16) mg/dL Creatinine 2.04 H (0.5-1.4) mg/dL Estim Creat Clear Calc 34.8 Estimated GFR 25 Random Glucose 258 H (60-115) mg/dL Lactic Acid 1.9 (0.5-2.0) mmol/L Calcium 10.4 H (8.4-10.2) mg/dL Magnesium 2.6 (1.6-2.6) mg/dL Total Bilirubin 0.1 (0.0-1.0) mg/dL Direct Bilirubin < 0.2 (0.0-0.5) mg/dL AST 43 H (5-31) U/L ALT 80 H (0-31) U/L Alkaline Phosphatase 186 H (39-117) U/L Ammonia 17 (13-55) umol/L Troponin I High Sens 17.9 H D (<3.5-17.0) ng/L Total Protein 8.8 H (6.5-8.0) g/dL Albumin 4.9 (3.5-5.0) g/dL Lipase 31 (8-78) U/L Beta-Hydroxybutyrate 2.48 H (0.02-0.27) mmol/L Urine Color Yellow Urine Appearance Clear Urine pH 5.5 (5.0-9.0) Ur Specific [place] 1.025 (1.005-1.025) Urine Protein 30 (1+) H (Neg-Trace) mg/dL Urine Glucose (UA) >=1000 H (Negative) mg/dL Urine Ketones 40 (Negative) mg/dL Urine Blood Negative (Negative) Urine Nitrite Negative (Negative) Ur Leukocyte Esterase Negative (Negative) Urine RBC 0-2 (0-2) /HPF Urine WBC 0-5 (0-5) /HPF Ur Squamous Epith Cells 0-2 (0-2) /HPF Urine Bacteria None Seen (None Seen) Hyaline Casts 3-5 (0-2) /LPF Urine Yeast Present Urine Opiates Screen Not Detected (Not Detect) Ur Buprenorphine Scrn Not Detected (Not Detect) ng/mL Ur Oxycodone Screen Not Detected (Not Detect) ng/mL Urine Methadone Screen Not Detected (Not Detect) ng/mL Urine Fentanyl Screen Not Detected (Not Detect) Ur Barbiturates Screen Not Detected (Not Detect) Phenytoin 7.8 L* (10.0-20.0) ug/mL Ur Phencyclidine Scrn Not Detected (Not Detect) Ur Amphetamines Screen Not Detected (Not Detect) U Benzodiazepines Scrn POSITIVE H (Not Detect) Urine Cocaine Screen Not Detected (Not Detect) U Marijuana (THC) Screen Not Detected (Not Detect) Influenza Type A (PCR) (Negative) Influenza Type B (PCR) (Negative) RSV RNA Qual (PCR) (Negative) SARS-CoV-2 RNA (RT-PCR) (Negative) 07/20/25 07/20/25 07/20/25 Range/Units 14:07 14:41 14:41 WBC (4.8-10.8) X10*3/uL RBC (4.20-5.50) X10*6/uL Hgb (12.0-16.0) g/dl Hct (37.0-47.0) % MCV (80.0-98.0) fL MCH (27.0-33.0) pg MCHC (31.0-35.0) g/dl RDW (11.0-16.0) % Plt Count (160-400) X10*3/uL MPV (9.4-12.3) fL Immature Gran % (Auto) (0.0-0.4) % Neut % (Auto) (45-73) % Lymph % (Auto) (20-40) % [place] % (Auto) (2-11) % Eos % (Auto) (0-4) % Baso % (Auto) (0-2) % Lymph # (Auto) (1.2-4.9) X10*3/uL [place] # (Auto) (0.1-1.2) X10*3/uL Eos # (Auto) (0.0-0.4) X10*3/uL Baso # (Auto) (0.0-0.2) X10*3/uL Abs Immat Gran (auto) (0.00-0.03) X10*3/uL Absolute Neuts (auto) (2.0-8.3) x10*3/uL Absolute Nucleated RBC (0.0-0.012) X10*3/uL Nucleated RBC % (auto) (0.0-0.2) /100WBC PT (11.2-13.5) SEC INR (0.9-1.1) VBG pH (7.32-7.43) VBG pCO2 mmHg VBG pO2 mmHg VBG HCO3 (22-26) mmol/L VBG O2 Saturation % VBG Base Excess mmol/L Sodium (135-145) mmol/L Potassium (3.3-5.1) mmol/L Chloride (96-108) mmol/L Carbon Dioxide (22-29) mmol/L Anion Gap (12-20) BUN (9-16) mg/dL Creatinine (0.5-1.4) mg/dL Estim Creat Clear Calc Estimated GFR Random Glucose (60-115) mg/dL Lactic Acid (0.5-2.0) mmol/L Calcium (8.4-10.2) mg/dL Magnesium (1.6-2.6) mg/dL Total Bilirubin (0.0-1.0) mg/dL Direct Bilirubin (0.0-0.5) mg/dL AST (5-31) U/L ALT (0-31) U/L Alkaline Phosphatase (39-117) U/L Ammonia (13-55) umol/L Troponin I High Sens Cancelled 28.8 H D (<3.5-17.0) ng/L Total Protein (6.5-8.0) g/dL Albumin (3.5-5.0) g/dL Lipase (8-78) U/L Beta-Hydroxybutyrate (0.02-0.27) mmol/L Urine Color Urine Appearance Urine pH (5.0-9.0) Ur Specific [place] (1.005-1.025) Urine Protein (Neg-Trace) mg/dL Urine Glucose (UA) (Negative) mg/dL Urine Ketones (Negative) mg/dL Urine Blood (Negative) Urine Nitrite (Negative) Ur Leukocyte Esterase (Negative) Urine RBC (0-2) /HPF Urine WBC (0-5) /HPF Ur Squamous Epith Cells (0-2) /HPF Urine Bacteria (None Seen) Hyaline Casts (0-2) /LPF Urine Yeast Urine Opiates Screen (Not Detect) Ur Buprenorphine Scrn (Not Detect) ng/mL Ur Oxycodone Screen (Not Detect) ng/mL Urine Methadone Screen (Not Detect) ng/mL Urine Fentanyl Screen (Not Detect) Ur Barbiturates Screen (Not Detect) Phenytoin (10.0-20.0) ug/mL Ur Phencyclidine Scrn (Not Detect) Ur Amphetamines Screen (Not Detect) U Benzodiazepines Scrn (Not Detect) Urine Cocaine Screen (Not Detect) U Marijuana (THC) Screen (Not Detect) Influenza Type A (PCR) NEGATIVE (Negative) Influenza Type B (PCR) NEGATIVE (Negative) RSV RNA Qual (PCR) NEGATIVE (Negative) SARS-CoV-2 RNA (RT-PCR) NEGATIVE (Negative) Independent Interpretation I performed an independent interpretation of an: Plain X-Ray ( Chest: No acute intrathoracic pathology.) and CT Scan ( head: No acute intracranial pathology.) Radiology Impression Discussion of test interpretation with radiology: I have reviewed the radiologist's reading. Discharge Plan Discharge Clinical Impression: Altered mental status, Hypernatremia Patient Disposition: Admitted As Inpatient
[2025-07-20 11:24] VITALS: BP 140/77; PULSE 111; RESP 18; TEMP 36.6; BMI 27.1
--- NOTE | 2025-07-20 11:26 | ECG_ITS ---
Test Reason : ams Blood Pressure : */* mmHG Vent. Rate : 114 BPM Atrial Rate : 114 BPM P-R Int : 154 ms QRS Dur : 74 ms QT Int : 326 ms P-R-T Axes : 83 40 73 degrees QTcB Int : 449 ms Sinus tachycardia Biatrial enlargement Nonspecific T wave abnormality Abnormal ECG When compared with ECG of 12-Jun-2025 13:03, Nonspecific T wave abnormality now evident in Lateral leads Referred By: Breanna Delgado Electronically Signed By: TEE JACOB
--- NOTE | 2025-07-20 11:50 | PC.NURSE ---
Pt is not interacting at all, isn't following commands, isn't speaking. No grimace. does not appear to be in distress. Not tachipnic. No resp depression. skin integrity was good. unable to obtain Sao2. Skin pwd, brisk cap refill and warm extremities.
[2025-07-20 12:37] LABS: MANUAL DIFF FLAG NO
[2025-07-20 12:39] LABS: Venous Blood Gas Refer to POC result
[2025-07-20 12:39] LABS: Hematocrit 34.8 % (37.0-47.0); Hemoglobin 11.3 g/dl (12.0-16.0); Imm Gran Abs Auto 0.05 X10*3/uL (0.00-0.03); Imm Gran Pct Auto 0.5 % (0.0-0.4); Lymphocytes Absolute Auto 1.1 X10*3/uL (1.2-4.9); Mean Corpuscular HGB Conc 32.5 g/dl (31.0-35.0); Mean Corpuscular Hemoglobin 28.1 pg (27.0-33.0); Mean Corpuscular Volume 86.6 fL (80.0-98.0); NRBC Abs Auto 0.000 X10*3/uL (0.0-0.012); NRBC Pct Auto 0.0 /100WBC (0.0-0.2); Platelet Count 198 X10*3/uL (160-400); Red Blood Count 4.02 X10*6/uL (4.20-5.50); White Blood Count 11.0 X10*3/uL (4.8-10.8)
[2025-07-20 12:41] LABS: VBG HCO3 27 mmol/L (22-26); VBG O2 % Saturation 89.0 %
[2025-07-20 12:47] LABS: Ammonia 17 umol/L (13-55); INTERNATIONAL NORM RATIO 1.0 (0.9-1.1); Prothrombin Time 12.7 SEC (11.2-13.5)
[2025-07-20 12:54] LABS: Alanine Aminotransferase 80 U/L (0-31); Albumin Level 4.9 g/dL (3.5-5.0); Alkaline Phosphatase 186 U/L (39-117); Anion Gap 16 (12-20); Aspartate Amino Transferase 43 U/L (5-31); Blood Urea Nitrogen 58 mg/dL (9-16); Calcium 10.4 mg/dL (8.4-10.2); Carbon Dioxide 28 mmol/L (22-29); Chloride 110 mmol/L (96-108); Creatinine Clr Calc Pharmacy 34.8; Estimated Glomerular Filt Rate 25; Lipase 31 U/L (8-78); Magnesium 2.6 mg/dL (1.6-2.6); Potassium 4.0 mmol/L (3.3-5.1); Sodium 150 mmol/L (135-145); Total Protein 8.8 g/dL (6.5-8.0)
[2025-07-20 12:59] LABS: Troponin-I High Sensitivity 17.9 ng/L (<3.5-17.0)
[2025-07-20] MEDS: Lactated Ringers 1,000 ML 999 ML IV (13:47)
[2025-07-20 13:50] VITALS: BP 152/78; PULSE 114; RESP 20; TEMP 36.9; O2SAT 96
--- NOTE | 2025-07-20 13:59 | PC.NURSE ---
Pt still is non verbal but resisting when cath inserted. Pt is strong. Camera placed on patient. ST on monitor.
--- OUTSIDE RECORDS SUMMARY | 2025-07-20 14:08 | XMS_ITS | Encounter Summary ---
Author Organization [facility] Address [address] [place] [address] Care Team Providers Care Restaurant And Bar Manager Name Role Phone Roby Roth MD Primary Care Provider [phone] Encounter Details Date Type Department Care Team (Late st Contact Info) Description 04/30/[address] [facility] - Main Lab [address] [facility] [place] [address] Roby Roth MD [address] [place] [address] [address] [place] [address] Traumatic subarachnoid hemorrhage without loss of consciousness, [...] [id number]) documented in this encounter Care Teams Restaurant And Bar Manager Relationship Specialty Start Date End Date Roby Roth MD [address] [place] [address] Dr [address] [place], [place] PCP - General Internal Medicine 09/11/24 documented as of this encounter
--- OUTSIDE RECORDS SUMMARY | 2025-07-20 14:09 | XMS_ITS | Encounter Summary ---
Author Organization [facility] Address [address] [place] [address] Care Team Providers Care Director Search Marketing Strategies Name Role Phone Roby Roth MD Primary Care Provider [phone] Encounter Details Date Type Department Care Team (Latest Contact Info) Description 12/17/2024 Lab Requisition [facility] - Main Lab [address] [facility] [place] [address] Roby Roth MD [address] [place] [address] Dr [address] [place], [place] 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 edema, unspecified eye (CMS/HCC V24, CMS/[facility] V28) Social History Tobacco Use Types Packs/Day [...] 12/17/2024 9:01 AM EDT [facility] ([facility]) [facility] Comment:Auto resulted. Blood Venous blood specimen / Unknown 12/17/2024 6:55 AM EDT 12/17/2024 7:32 AM EDT us Roby Roth MD LAB BLOOD ORDERABLES Final Resul t [facility] [address] [place] [address], [place] [phone] * (ABNORMAL) Complete blood count (12/17/2024 6:55 AM EDT) [facility] WBC 3.9(L) 4.8 - 10.8 K/mcL LAB HEMETOLOGY METHOD 12/17/2024 8:49 AM EDT [facility] RBC 3.70(L) 3.80 - 4.80 M/mcL LAB HEMETOLOGY METHOD [facility] Hemoglobin 10.7(L) 11.5 - 16.0 g/dL LAB HEMETOLOGY METHOD 12/17/2024 8:49 AM EDT [facility] Hematocrit 33.6(L) 35.0 - 47.0 % LAB HEMETOLOGY METHOD 12/17/2024 8:49 AM [facility] MCV 90.8 79.0 - 98.0 FL LAB HEMETOLOGY METHOD 12/17/2024 8:49 AM EDT [facility] MCH 28.9 27.0 - 32.0 pcg LAB HEMETOLOGY METHOD 12/17/2024 8:49 AM EDT [facility] MCHC 31.8(L) 32.0 - 37.0 g/dL LAB HEMETOLOGY METHOD 12/17/2024 8[facility] RDW 14.5 11.0 - 15.0 % LAB HEMETOLOGY METHOD 12/17/2024 8:[facility] Platelets 213 130 - 400 K/mcL LAB HEMETOLOGY METHOD 12/17/2024 8:49 AM EDT [facility] MPV 10.9 7.0 - 11.0 FL LAB HEMETOLOGY METHOD 12/17/2024 8:49 AM EDT [facility] NRBC 0.0 <1.0 % LAB HEMETOLOGY METHOD 12/17/2024 8:49 AM EDT [facility] NRBC Absolute 0.00 <0.10 K/mcL LAB HEMETOLOGY METHOD 12/17/2024 8:49 AM EDT [facility] Blood Venous blood specimen / Unknown 12/17/2024 6:55 AM EDT 12/17/2024 7:32 AM EDT us Roby Roth MD LAB BLOOD ORDERABLES Final Resul t Performing Organization Address City/[facility]/ZIP Co de Phone Number [facility] [address] [place] [address], [place] [phone] * Vitamin D 25 hydroxy (12/17/2024 6:55 AM EDT) Vit D, 25-Hydroxy 58.7 30.0 - 80.0 ng/mL LAB CHEMISTRY METHOD 12/17/2024 10:53 AM EDT [facility] Blood Venous blood specimen / Unknown 12/17/2024 6:55 AM EDT 12/17/2024 7:32 AM EDT us Roby Roth MD LAB BLOOD ORDERABLES Final Resul t [facility] [address] [place] [address], [place] [phone] * (ABNORMAL) Thyroid stimulating hormone (12/17/2024 6:55 AM EDT) TSH 133.29(H) 0.40 - 4.00 mcIU/mL LAB CHEMISTRY METHOD 12/17/2024 1:07 PM EDT [facility] Comment:Results verified by repeat testing Blood Venous blood specimen / Unknown 12/17/2024 6:55 AM EDT 12/17/2024 7:32 AM EDT us Roby Roth MD LAB BLOOD ORDERABLES Final Resul t Performing Organization Address [facility]/ZIP Co de Phone Number [facility] [address] [place] [address], [place] [phone] * (ABNORMAL) Thyroxine free (12/17/2024 6:55 AM EDT) Free T4 0.39(L) 0.70 - 1.80 ng/dL LAB CHEMISTRY METHOD 12/17/2024 10:54 AM EDT [facility] Blood Venous blood specimen / Unknown 12/17/2024 6:55 AM EDT 12/17/2024 7:32 AM EDT us Roby Roth MD LAB BLOOD ORDERABLES Final Resul t Performing Organization Address [facility] de Phone Number [facility] [address] [place] [address], [place] [phone] * Levetiracetam level (12/17/2024 6:55 AM EDT) [...] developed and the performance characteristics determined by [facility]. This confirmation testing has not been cleared or approved by the FDA. The laboratory is regulated under CLIA as qualified to perform high-complexity testing. This test is used for patient testing purposes. It should not be regarded as investigational or for research. Test performed at [facility], [address], [place] [address] Fatemeh Godfrey MD, PhD - Lithograph Operator Blood Venous blood specimen / Unknown 12/17/2024 6:55 AM EDT 12/17/2024 7:32 AM EDT us Roby Roth MD LAB BLOOD ORDERABLES Final Resul t [facility] [address] [place] [address] * (ABNORMAL) Hemoglobin A1c (12/17/2024 6:55 AM EDT) Hemoglobin A1C 8.8(H) <6.5 % LAB CHEMISTRY METHOD 12/17/2024 10:36 AM EDT [facility] Mean Bld Glu Estim. 206 mg/dL LAB CHEMISTRY METHOD 12/17/2024 10:36 AM EDT [facility] Blood Venous blood specimen / Unknown 12/17/2024 6:55 AM EDT 12/17/2024 7:32 AM EDT us Roby Roth MD LAB BLOOD ORDERABLES Final Resul t Performing Organization Address [facility]/ZIP Co de Phone Number [facility] [address] [place] [address], [place] [phone] * (ABNORMAL) Phenytoin level total (12/17/2024 6:55 AM EDT) Phenytoin Level 36.8(HH) 10.0 - 20.0 mcg/mL LAB CHEMISTRY METHOD 12/17/2024 10:06 AM EDT [facility] Comment:Results verified by repeat testing Blood Venous blood specimen / Unknown 12/17/2024 6:55 AM EDT 12/17/2024 7:32 AM EDT us Roby Roth MD LAB BLOOD ORDERABLES Final Resul t [facility] [address] [place] [address], [place] [phone] * Lipid panel with reflex to direct LDL (12/17/2024 6:55 AM EDT) Cholesterol 197 0 - 200 mg/dL LAB CHEMISTRY METHOD 12/17/2024 9:11 AM EDT [facility] Triglycerides 72 0 - 150 mg/dL LAB CHEMISTRY METHOD 12/17/2024 9:11 AM EDT [facility] HDL 103 >=40 mg/dL LAB CHEMISTRY METHOD 12/17/2024 9:11 AM EDT [facility] LDL Calculated 80 0 - 100 mg/dL LAB CHEMISTRY METHOD 12/17/2024 9:11 AM EDT [facility] VLDL Cholesterol Oskar 14.4 mg/dL LAB CHEMISTRY METHOD 12/17/2024 9:11 AM EDT [facility] Non HDL Chol. (LDL+VLDL) 94 <145 mg/dL LAB CHEMISTRY METHOD 12/17/2024 9:11 AM EDT [facility] Chol/HDL Ratio 1.9 0.0 - 4.4 LAB CHEMISTRY METHOD 12/17/2024 9:11 AM T [facility] Blood Venous blood specimen / Unknown 12/17/2024 6:55 AM EDT 12/17/2024 7:32 AM EDT us Roby Roth MD LAB BLOOD ORDERABLES Final Resul t [facility] [address] [place] [address], [place] [phone] * (ABNORMAL) Comprehensive metabolic panel (12/17/2024 6:55 [...] LAB CHEMISTRY METHOD 12/17/2024 9:11 AM EDT [facility] Total Protein 8.8(H) 6.0 - 8.0 g/dL LAB CHEMISTRY METHOD 12/17/2024 9:11 AM EDT [facility] Albumin 4.4 3.2 - 5.0 g/dL LAB CHEMISTRY METHOD 12/17/2024 9:11 AM EDT [facility] Total Bilirubin 0.2 0.0 - 1.4 mg/dL LAB CHEMISTRY METHOD 12/17/2024 9:11 AM EDT [facility] Blood Venous blood specimen / Unknown 12/17/2024 6:55 AM EDT 12/17/2024 7:32 AM EDT us Roby Roth MD LAB BLOOD ORDERABLES Final Resul t [facility] [address] [place] [address], documented in this encounter Visit Diagnoses Diagnosis 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 edema, unspecified eye (CMS/HCC V24, CMS/HCC V28) documented in this encounter Care Teams Director Search Marketing Strategies Relationship Specialty Start Date End Date Roby Roth MD [address] [place], [place] PCP - General Internal Medicine 09/11/24 documented as of this encounter
--- OUTSIDE RECORDS SUMMARY | 2025-07-20 14:09 | XMS_ITS | Encounter Summary ---
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; Unspecified convulsions (CMS/HCC [...] TOTAL Routine 07/04/2025 6:42 AM EST Other [facility]p (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 Unspecified convulsions (CMS/HCC V24, CMS/HCC V28) documented in this encounter Results * Phenytoin level total (07/04/2025 6:42 AM EST) Phenytoin Level 13.8 10.0 - 20.0 mcg/mL LAB CHEMISTRY METHOD 07/04/2025 8:25 AM EST [facility] ([facility]) [facility] Blood Venous blood specimen / Unknown 07/04/2025 6:42 AM EST 07/04/2025 7:38 AM EST us Roby Roth MD LAB BLOOD ORDERABLES Final Resul t [facility] ([facility]) HOSPITAL LAB [address] [place] [address], documented in this encounter Visit Diagnoses Diagnosis Other mcfp (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 Unspecified convulsions (CMS/HCC V24, CMS/HCC V28) documented in this encounter Care Teams Director Translation Relationship Specialty Start Date End Date Roby Roth MD [address] [place], [place] PCP - General Internal Medicine 09/11/24 documented as of this encounter
--- OUTSIDE RECORDS SUMMARY | 2025-07-20 14:09 | XMS_ITS | Encounter Summary ---
Author Organization [facility] Address [address] [place] [address] Care Team Providers Care Senior Informatica Developer Name Role Phone Roby Roth MD Primary Care Provider [phone] Encounter Details Date Type Department Care Team (Latest Contact Info) Description 06/15/2025 Lab Requisition [facility] - Main Lab 299 [facility] [place] [address] Roby Roth MD [address] [place] [address] [address] [place], [place] Unspecified convulsions (CMS/HCC V24, CMS/HCC V28); [...] Routine 06/15/2025 6:30 AM EDT Unspecified convulsions ([facility] V24, [facility] V28) Hypothyroidism, unspecified 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 edema, unspecified eye ([facility] V24, [facility] V28) documented in this encounter Results * (ABNORMAL) Basic metabolic panel (06/15/2025 6:30 AM EDT) Sodium 135 133 - 145 mmol/L LAB CHEMISTRY METHOD 06/15/2025 8:49 PM [facility] Potassium 3.9 3.5 - 5.5 mmol/L LAB CHEMISTRY METHOD 06/15/2025 8:49 PM [facility] Chloride 100 96 - 110 mmol/L LAB CHEMISTRY METHOD 06/15/2025 8:49 PM [facility] CO2 24 21 - 32 mmol/L LAB CHEMISTRY METHOD 06/15/2025 8:49 PM [facility] Anion Gap 11 3 - 11 LAB CHEMISTRY METHOD 06/15/2025 8:49 PM [facility] Glucose 302(H) 70 - 100 mg/dL LAB CHEMISTRY METHOD 06/15/2025 8:49 PM [facility] BUN 24 5 - 25 mg/dL LAB CHEMISTRY METHOD 06/15/2025 8:49 PM [facility] Creatinine 1.41(H) 0.50 - 1.10 mg/dL LAB CHEMISTRY METHOD 06/15/2025 8:49 PM [facility] eGFR 44(L) >=60 mL/min/1. 73m2 LAB CHEMISTRY METHOD 06/15/2025 8:49 PM [facility] Comment:Calculation based on the Chronic Kidney Disease Epidemiology Collaboration (CKD-EPI) equation refit without adjustment for race. BUN/Creatinine Ratio 17.0 LAB CHEMISTRY METHOD 06/15/2025 8:49 PM EDT [facility] Calcium 9.7 8.5 - 10.5 mg/dL LAB CHEMISTRY METHOD 06/15/2025 8:49 PM EDT [facility] Blood Venous blood specimen / Unknown 06/15/2025 6:30 AM EDT 06/15/2025 7:20 AM EDT us Roby Roth MD LAB BLOOD ORDERABLES Final Resul t Performing Organization Address City/[facility] Co de Phone Number [facility] [address] [place] [address], [place] [phone] * Thyroid stimulating hormone (06/15/2025 6:30 AM EDT) TSH 2.10 0.40 - 4.00 mcIU/mL LAB CHEMISTRY METHOD 06/15/2025 8:23 PM EDT [facility] Blood Venous blood specimen / Unknown 06/15/2025 6:30 AM EDT 06/15/2025 7:20 AM EDT us Roby Roth MD LAB BLOOD ORDERABLES Final Resul t Performing Organization Address [facility] de Phone Number [facility] [address] [place] [address], [place] [phone] * Phenytoin level total (06/15/2025 6:30 AM EDT) Phenytoin Level 12.6 10.0 - 20.0 mcg/mL LAB CHEMISTRY METHOD 06/15/2025 8:03 AM EDT [facility] Blood Venous blood specimen / Unknown 06/15/2025 6:30 AM EDT 06/15/2025 7:20 AM EDT us Roby Roth MD LAB BLOOD ORDERABLES Final Resul t Performing Organization Address City/[facility]/ZIP Co de Phone Number [facility] [address] [place] [address], documented in this encounter Visit Diagnoses Diagnosis Unspecified convulsions ([facility] V24, [facility] V28) Hypothyroidism, unspecified 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 edema, unspecified eye ([facility] V24, [facility] V28) documented in this encounter Care Teams Senior Informatica Developer Relationship Specialty Start Date End Date Roby Roth MD [address] [place] [address] [address] [place], [place] PCP - General Internal Medicine 09/11/24 documented as of this encounter
--- OUTSIDE RECORDS SUMMARY | 2025-07-20 14:09 | XMS_ITS | Encounter Summary ---
Author Organization [facility] Address [address] [place] [address] Care Team Providers Care Brand Advisor Name Role Phone Roby oRth MD Primary Care Provider [phone] Encounter Details Date Type Department Care Team (Late st Contact Info) Description 01/05/2025 Lab Requisition [facility] - Main Lab 299 [facility] [place] [address] Roby Roth MD [address] [place] [address] [address] [place], [place] Epilepsy, unspecified, not intractable, with status [...] LAB CHEMISTRY METHOD 01/05/2025 9:18 AM EDT [facility] Blood Venous blood specimen / Unknown 01/05/2025 7:05 AM EDT 01/05/2025 7:32 AM EDT us Roby Roth MD LAB BLOOD ORDERABLES Final Resul t [facility] [address] [place] [address], documented in this encounter Visit Diagnoses Diagnosis Epilepsy, unspecified, not intractable, with status epilepticus (CMS/HCC V24, CMS/HCC V28) Conversion disorder with seizures or convulsions documented in this encounter Care Teams Brand Advisor Relationship Specialty Start Date End Date Roby Roth MD [address] [place] [address] [address] [place], [place] PCP - General Internal Medicine 09/11/24 documented as of this encounter
--- OUTSIDE RECORDS SUMMARY | 2025-07-20 14:09 | XMS_ITS | Encounter Summary ---
Author Organization [facility] Address [address] [place] [address] Care Team Providers Care Import Coordinator Name Role Phone Roby Roth MD Primary Care Provider [phone] Encounter Details Date Type Department Care Team (Late st Contact Info) Description 07/16/2025 Lab Requisition [facility] - Main Lab [address] [place] [address] Roby Roth MD [address] [place] [address] [address] [place], [place] Unspecified convulsions (CMS/HCC V24, CMS/HCC V28) [...] - 20.0 mcg/mL 07/16/2025 8:08 AM EST [facility] Blood Venous blood specimen / Unknown 07/16/2025 4:51 AM EST 07/16/2025 6:58 AM EST us Roby Roth MD LAB BLOOD ORDERABLES Final Resul t [facility] [address] [place] [address], documented in this encounter Visit Diagnoses Diagnosis Unspecified convulsions (CMS/HCC V24, CMS/HCC V28) documented in this encounter Care Teams Import Coordinator Relationship Specialty Start Date End Date Roby Roth MD [address] [place] [address] [address] [place], [place] PCP - General Internal Medicine 09/11/24 documented as of this encounter
--- OUTSIDE RECORDS SUMMARY | 2025-07-20 14:09 | XMS_ITS | Encounter Summary ---
Author Organization [facility] Address [address] [place] [address] Care Team Providers Care Soldering Machine Tender Name Role Phone Roby Roth MD Primary Care Provider [phone] Encounter Details Date Type Department Care Team (Latest Contact Info) Description 03/19/2025 Lab Requisition [facility] - Main Lab 299 [facility] [place] [address] Roby Roth MD [address] [place] [address] Dr [address] [place], [place] Unspecified convulsions (CMS/HCC V24, CMS/HCC V28); [...] Routine 03/19/2025 6:11 AM EDT Unspecified convulsions ([facility] V24, [facility] V28) 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 edema, unspecified eye ([facility] V24, [facility] V28) HEMOGLOBIN A1C Routine 03/19/2025 6:11 AM EDT Unspecified convulsions ([facility] V24, [facility] V28) 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 edema, unspecified eye ([facility]/HCC V24, [facility] V28) COMPREHENSIVE METABOLIC PANEL Routine 03/19/2025 6:11 AM EDT Unspecified convulsions ([facility] V24, [facility] V28) 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 edema, unspecified eye ([facility] V24, [facility] V28) documented in this encounter Results * (ABNORMAL) CBC auto differential (03/19/2025 6:11 AM EDT) [facility] WBC 6.2 4.8 - 10.8 K/mcL LAB HEMETOLOG[facility] RBC 3.90 3.80 - 4.80 M/mcL LAB HEMETOLOGY METHOD 03/19/2025 11:46 PM [facility] Hemoglobin 11.0(L) 11.5 - 16.0 g/dL LAB HEMETOLOGY METHOD 03/19/2025 11:46 PM T [facility] Hematocrit 36.7 35.0 - 47.0 % LAB HEMETOLOGY METHOD 03/19/2025 11:46 PM [facility] MCV 93.4 79.0 - 98.0 FL LAB HEMETOLOGY METHOD 03/19/2025 11:46 PM [facility] MCH 28.0 27.0 - 32.0 pcg LAB HEMETOLOGY METHOD 03/19/2025 11:46 PM EDT [facility] MCHC 30.0(L) 32.0 - 37.0 g/dL LAB HEMETOLOGY METHOD 03/19/2025 11:46 [facility] RDW 14.3 11.0 - 15.0 % LAB HEMETOLOGY METHOD 03/19/2025 11:46 PM [facility] Platelets 249 130 - 400 K/mcL LAB HEMETOLOGY METHOD 03/19/2025 11:46 PM [facility] MPV 11.0 7.0 - 11.0 FL LAB HEMETOLOGY METHOD 03/19/2025 11:46 PM [facility] NRBC 0.0 <1.0 % LAB HEMETOLOGY METHOD 03/19/2025 11:46 PM [facility] NRBC Absolute 0.00 <0.10 K/mcL LAB HEMETOLOGY METHOD 03/19/2025 11:46 PM [facility] Neutrophils Relative 76.5 % LAB HEMETOLOGY METHOD 03/19/2025 11:46 PM [facility] Lymphocytes Relative 16.1 % LAB HEMETOLOGY METHOD 03/19/2025 11:46 PM [facility] Monocytes Relative 6.9 % LAB HEMETOLOGY METHOD 03/19/2025 11:46 PM [facility] Eosinophils Relative 0.0 % LAB HEMETOLOGY METHOD 03/19/2025 11:46 PM [facility] Basophils Relative 0.3 % LAB HEMETOLOGY METHOD 03/19/2025 11:46 PM [facility] Immature Granulocytes Relative 0.2 % LAB HEMETOLOGY METHOD 03/19/2025 11:46 PM [facility] Neutrophils Absolute 4.77 1.50 - 7.00 K/mcL LAB HEMETOLOGY METHOD 03/19/2025 11:46 PM EDT [facility] Lymphocytes Absolute 1.00 1.00 - 5.00 K/mcL LAB HEMETOLOGY METHOD 03/19/2025 11:46 PM EDT [facility] Monocytes Absolute 0.43 0.20 - 1.00 K/mcL LAB HEMETOLOGY METHOD 03/19/2025 11:46 PM EDT [facility] Eosinophils Absolute 0.00 0.00 - 0.50 K/[facility] LAB HEMETOLOGY METHOD 03/19/2025 11:46 PM EDT [facility] Basophils Absolute 0.02 0.00 - 0.20 K/[facility] LAB HEMETOLOGY METHOD 03/19/2025 11:46 PM EDT [facility] Immature Granulocytes Absolute 0.01 0.00 - 0.03 K/[facility] LAB HEMETOLOGY METHOD 03/19/2025 11:46 PM EDT [facility] Blood Venous blood specimen / Unknown 03/19/2025 6:11 AM EDT 03/19/2025 6:36 AM EDT us Roby Roth MD LAB BLOOD ORDERABLES Final Resul t Performing Organization Address City/[facility]/ZIP Co de Phone Number [facility] [address] [place] [address], [place] [phone] * (ABNORMAL) Thyroid stimulating hormone (03/19/2025 6:11 AM EDT) TSH 0.11(L) 0.40 - 4.00 mcIU/mL LAB CHEMISTRY METHOD 03/20/2025 12:01 AM EDT [facility] Blood Venous blood specimen / Unknown 03/19/2025 6:11 AM EDT 03/19/2025 6:36 AM EDT us Roby Roth MD LAB BLOOD ORDERABLES Final Resul t [facility] [address] [place] [address], [place] [phone] * (ABNORMAL) Hemoglobin A1c (03/19/2025 6:11 AM EDT) [facility] Hemoglobin A1C 9.4(H) <6.5 % LAB CHEMISTRY METHOD 03/19/2025 1:44 PM EDT [facility] Mean Bld Glu Estim. 223 mg/dL LAB CHEMISTRY METHOD 03/19/2025 1:44 PM EDT [facility] Blood Venous blood specimen / Unknown 03/19/2025 6:11 AM EDT 03/19/2025 6:36 AM EDT Roby Roth MD LAB BLOOD ORDERABLES Final Resul t [facility] [address] [place] [address], * (ABNORMAL) Comprehensive metabolic panel (03/19/2025 6:11 AM EDT) [facility] Sodium 138 133 - 145 mmol/L LAB CHEMISTRY METHOD 03/19/2025 7:27 AM [facility] Potassium 4.8 3.5 - 5.5 mmol/L LAB CHEMISTRY METHOD 03/19/2025 7:27 AM [facility] Chloride 102 96 - 110 mmol/L LAB CHEMISTRY METHOD 03/19/2025 7:27 AM [facility] CO2 24 21 - 32 mmol/L LAB CHEMISTRY METHOD 03/19/2025 7:27 AM [facility] Anion Gap 12(H) 3 - 11 LAB CHEMISTRY METHOD 03/19/2025 7:27 AM [facility] Glucose 271(H) 70 - 100 mg/dL LAB CHEMISTRY METHOD 03/19/2025 7:27 AM [facility] BUN 26(H) 5 - 25 mg/dL LAB CHEMISTRY METHOD 03/19/2025 7:27 AM [facility] Creatinine 1.31(H) 0.50 - 1.10 mg/dL LAB CHEMISTRY METHOD 03/19/2025 7:27 AM [facility] eGFR 48(L) >=60 mL/min/1. 73m2 LAB CHEMISTRY METHOD 03/19/2025 7:27 AM [facility] Comment:Calculation based on the Chronic Kidney Disease Epidemiology Collaboration (CKD-EPI) equation refit without adjustment for race. BUN/Creatinine Ratio 19.8 LAB CHEMISTRY METHOD 03/19/2025 7:27 AM [facility] Calcium 10.7(H) 8.5 - 10.5 mg/dL LAB CHEMISTRY METHOD 03/19/2025 7:27 AM [facility] AST (SGOT) 12 10 - 42 unit/L LAB CHEMISTRY METHOD 03/19/2025 7:27 AM [facility] ALT (SGPT) 19 10 - 60 unit/L LAB CHEMISTRY METHOD 03/19/2025 7:27 AM [facility] Alkaline Phosphatase 194(H) 42 - 121 unit/L LAB CHEMISTRY METHOD 03/19/2025 7:27 AM [facility] Total Protein 8.5(H) 6.0 - 8.0 g/dL LAB CHEMISTRY METHOD 03/19/2025 7:27 AM [facility] Albumin 4.3 3.2 - 5.0 g/dL LAB CHEMISTRY METHOD 03/19/2025 7:27 AM [facility] Total Bilirubin 0.3 0.0 - 1.4 mg/dL LAB CHEMISTRY METHOD 03/19/2025 7:27 AM [facility] Blood Venous blood specimen / Unknown 03/19/2025 6:11 AM EDT 03/19/2025 6:36 AM EDT us Roby Roth MD LAB BLOOD ORDERABLES Final Resul t [facility] ([facility]) [facility] [address] [place] [address], documented in this encounter Visit Diagnoses Diagnosis Unspecified convulsions ([facility] V24, [facility] V28) 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 edema, unspecified eye ([facility] V24, [facility] V28) documented in this encounter Care Teams Soldering Machine Tender Relationship Specialty Start Date End Date Roby Roth MD [address] [place], [place] PCP - General Internal Medicine 09/11/24 documented as of this encounter
--- OUTSIDE RECORDS SUMMARY | 2025-07-20 14:09 | XMS_ITS | Encounter Summary ---
Author Organization [facility] Address [address] [place] [address] Care Team Providers Care Cigarette Filter Inspector Name Role Phone Roby Roth MD Primary Care Provider [phone] Encounter Details Date Type Department Care Team (Late st Contact Info) Description 12/29/2024 Lab Requisition [facility] - Main Lab [address] [place] [address] Roby Roth MD [address] [place] [address] Dr [address] [place], [place] Hypothyroidism, unspecified Social History Tobacco Use [...] LAB CHEMISTRY METHOD 12/29/2024 9:15 AM EDT [facility] ([facility]) [facility] Blood Venous blood specimen / Unknown 12/29/2024 6:40 AM EDT 12/29/2024 7:07 AM EDT us Roby Roth MD LAB BLOOD ORDERABLES Final Resul t Performing Organization Address [facility] Co de Phone Number [facility] [address] [place] [address], [place] [phone] * (ABNORMAL) Phenytoin level total (12/29/2024 6:40 AM EDT) Phenytoin Level 37.4(HH) 10.0 - 20.0 mcg/mL LAB CHEMISTRY METHOD 12/29/2024 8:13 AM EDT [facility] Blood Venous blood specimen / Unknown 12/29/2024 6:40 AM EDT 12/29/2024 7:07 AM EDT Roby Roth MD LAB BLOOD ORDERABLES Final Resul t Performing Organization Address [facility] Co de Phone Number [facility] [address] [place] [address], [place] [phone] documented in this encounter Visit Diagnoses Diagnosis Hypothyroidism, unspecified documented in this encounter Care Teams Cigarette Filter Inspector Relationship Specialty Start Date End Date Roby Roth MD [address] [place], [place] PCP - General Internal Medicine 09/11/24 documented as of this encounter
--- OUTSIDE RECORDS SUMMARY | 2025-07-20 14:09 | XMS_ITS | Encounter Summary ---
Author Organization [facility] Address [address] [place] [address] Care Team Providers Care Utility Worker Production Name Role Phone Roby Roth MD Primary Care Provider [phone] Encounter Details Date Type Department Care Team (Late st Contact Info) Description 07/19/2025 Lab Requisition [facility] - Main Lab 299 [facility] [place] [address] Roby Roth MD [address] [place] [address] Dr [address] [place], [place] Traumatic subarachnoid hemorrhage with loss of consciousness greater than 24 hours with return to pre-existing conscious level, initial encounter ([facility] V24, [facility] V28); Personal history of traumatic brain injury Social [...] Associated Diagnosis Comments PHENYTOIN LEVEL, TOTAL STAT 07/19/2025 6:45 AM EST Traumatic subarachnoid hemorrhage with loss of consciousness greater than 24 hours with return to pre-existing conscious level, initial encounter ([facility] V24, [facility] V28) Personal history of traumatic brain injury documented in this encounter Results * Phenytoin level total (07/19/2025 6:45 AM EST) Phenytoin Level 12.9 10.0 - 20.0 mcg/mL 07/19/2025 7:48 AM EST [facility] ([facility]) [facility] Blood Venous blood specimen / Unknown 07/19/2025 6:45 AM EST 07/19/2025 7:20 AM EST us Roby Roth MD LAB BLOOD ORDERABLES Final Resul t [facility] ([facility]) [facility] [address] [place] [address], [place] [phone] documented in this encounter Visit Diagnoses Diagnosis Traumatic subarachnoid hemorrhage with loss of consciousness greater than 24 hours with return to pre-existing conscious level, initial encounter ([facility] V24, CMS/[facility] V28) Personal history of traumatic brain injury documented in this encounter Care Teams Utility Worker Production Relationship Specialty Start Date End Date Roby Roth MD [address] [place], [place] PCP - General Internal Medicine 09/11/24 documented as of this encounter
--- OUTSIDE RECORDS SUMMARY | 2025-07-20 14:09 | XMS_ITS | Encounter Summary ---
Author Organization [facility] Address [address] [place] [address] Care Team Providers Care Acct Exec Name Role Phone Roby Roth MD Primary Care Provider [phone] Encounter Details Date Type Department Care Team (Latest Contact Info) Description 04/23/2025 Lab Requisition [facility] - Main Lab 299 [facility] [place] [address] Roby Roth MD [address] [place] [address] Dr [address] [place], [place] 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 edema, unspecified eye (CMS/HCC V24, CMS/[facility] V28) Social [...] [facility] V[facility]) documented in this encounter Care Teams Acct Exec Relationship Specialty Start Date End Date Roby Roth MD [address] [place] [address] Dr [address] [place], [place] PCP - General Internal Medicine 09/11/24 documented as of this encounter
--- OUTSIDE RECORDS SUMMARY | 2025-07-20 14:09 | XMS_ITS | Encounter Summary ---
Author Organization [facility] Address [address] [place] [address] Care Team Providers Care Refrigeration Manager Name Role Phone Roby Roth MD Primary Care Provider [phone] Encounter Details Date Type Department Care Team (Late st Contact Info) Description 05/02/2025 Lab Requisition [facility] - Main Lab [address] [place] [address] Roby Roth MD [address] [place] [address] Dr [address] [place], [place] Traumatic subarachnoid hemorrhage without loss of consciousness, sequela ([facility] V24); Encounter for therapeutic drug level [...] hemorrhage without loss of consciousness, sequela ([facility] V24) Encounter for therapeutic drug level monitoring PHENYTOIN LEVEL, TOTAL STAT 05/02/2025 12:00 AM EDT Traumatic subarachnoid hemorrhage without loss of consciousness, sequela ([facility] V24) Encounter for therapeutic drug level monitoring documented in this encounter Results * Phenytoin level total (05/02/2025 12:00 AM EDT) Phenytoin Level 10.4 10.0 - 20.0 mcg/mL LAB CHEMISTRY METHOD 05/02/2025 10:42 PM EDT [facility] ([facility] Blood Venous blood specimen / Unknown 05/02/2025 05/02/2025 10:13 PM EDT us Roby Roth MD LAB BLOOD ORDERABLES Final Resul t Performing Organization Address [facility]/ZIP Co de Phone Number [facility] [address] [place] [address], [place] [phone] * (ABNORMAL) Thyroid stimulating hormone (05/02/2025 12:00 AM EDT) TSH 0.21(L) 0.40 - 4.00 mcIU/mL LAB CHEMISTRY METHOD 05/02/2025 11:03 PM EDT [facility] Blood Venous blood specimen / Unknown 05/02/2025 05/02/2025 10:13 PM EDT us Roby Roth MD LAB BLOOD ORDERABLES Final Resul t Performing Organization Address City/[facility]/ZIP Co de Phone Number [facility] [address] [place] [address], [place] [phone] documented in this encounter Visit Diagnoses Diagnosis Traumatic subarachnoid hemorrhage without loss of consciousness, sequela (CMS/HCC V24) Encounter for therapeutic drug level monitoring documented in this encounter Care Teams Refrigeration Manager Relationship Specialty Start Date End Date Roby Roth MD [address] [place] [address] PCP - General Internal Medicine 09/11/24 documented as of this encounter
--- OUTSIDE RECORDS SUMMARY | 2025-07-20 14:09 | XMS_ITS | Encounter Summary ---
Author Organization [facility] Address [address] [place] [address] Care Team Providers Care Car Rental Service Attendant Name Role Phone Roby Roth MD Primary Care Provider [phone] Encounter Details Date Type Department Care Team (Latest Contact Info) Description 04/25/2025 Lab Requisition [facility] - Main Lab [address] [facility] [place] [address] Roby Roth MD [address] [place] [address] [address] [place], [place] 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 edema, unspecified eye (CMS/[facility] V24, CMS/[facility] V28) Social History [...] eye (CMS/HCC V24, CMS/[facility] V28) PHENYTOIN LEVEL, TOTAL STAT 04/25/2025 1:15 PM EDT 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 edema, unspecified eye (CMS/HCC V24, CMS/[facility] V28) documented in this encounter Results * Thyroid stimulating hormone (04/25/2025 1:15 PM EDT) TSH 0.47 0.40 - 4.00 mcIU/mL LAB CHEMISTRY METHOD 04/25/2025 3:20 PM EDT [facility] Blood Venous blood specimen / Unknown 04/25/2025 1:15 PM EDT 04/25/2025 2:07 PM EDT Roby Roth MD LAB BLOOD ORDERABLES Final Resul t Performing Organization Address City/[facility]/ZIP Co de Phone Number [facility] [address] [place] [address], [place] [phone] * Phenytoin level total (04/25/2025 1:15 PM EDT) Phenytoin Level 14.1 10.0 - 20.0 mcg/mL LAB CHEMISTRY METHOD 04/25/2025 2:58 PM EDT [facility] Blood Venous blood specimen / Unknown 04/25/2025 1:15 PM EDT 04/25/2025 2:07 PM EDT Roby Roth MD LAB BLOOD ORDERABLES Final Resul t Performing Organization Address [facility]/ZIP Co de Phone Number [facility] [address] [place] [address], [place] [phone] documented in this encounter Visit Diagnoses Diagnosis 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 edema, unspecified eye (CMS/HCC V24, CMS/HCC V28) documented in this encounter Care Teams Car Rental Service Attendant Relationship Specialty Start Date End Date Roby Roth MD [address] [place] [address] Dr Raciel Guerrero [place] PCP - General Internal Medicine 09/11/24 documented as of this encounter
--- OUTSIDE RECORDS SUMMARY | 2025-07-20 14:09 | XMS_ITS | Encounter Summary ---
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 Social History Tobacco Use [...] HORMONE Routine 05/04/2025 6:40 AM EDT Other snf (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 documented in this encounter Results * Thyroid stimulating hormone (05/04/2025 6:40 AM EDT) TSH 0.40 0.40 - 4.00 mcIU/mL LAB CHEMISTRY METHOD 05/04/2025 9:43 AM EDT [facility] Blood Venous blood specimen / Unknown 05/04/2025 6:40 AM EDT 05/04/2025 7:27 AM EDT us Roby Roth MD LAB BLOOD ORDERABLES Final Resul t [facility] [address] [place] [address], documented in this encounter Visit Diagnoses Diagnosis Other snf (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 documented in this encounter Care Teams Elevator Repairer Apprentice Relationship Specialty Start Date End Date Roby Roth MD [address] [place] [address] [address] [place]É Guerrero PCP - General Internal Medicine 09/11/24 documented as of this encounter
--- OUTSIDE RECORDS SUMMARY | 2025-07-20 14:09 | XMS_ITS | Encounter Summary ---
Author Organization [facility] Address [address] [place] [address] Care Team Providers Care Group Counselor Name Role Phone Roby Roth MD Primary Care Provider [phone] Encounter Details Date Type Department Care Team (Late st Contact Info) Description 12/24/2024 Lab Requisition [facility] - Main Lab [address] [place] [address] Roby Roth MD [address] [place] [address] [address] [place], [place] Hypothyroidism, unspecified Social History Tobacco Use [...] LAB CHEMISTRY METHOD 12/24/2024 10:24 AM EDT [facility] Blood Venous blood specimen / Unknown 12/24/2024 6:55 AM EDT 12/24/2024 7:29 AM EDT us Roby Roth MD LAB BLOOD ORDERABLES Final Resul t [facility] [address] [place] [address], documented in this encounter Visit Diagnoses Diagnosis Hypothyroidism, unspecified documented in this encounter Care Teams Group Counselor Relationship Specialty Start Date End Date Roby Roth MD [address] [place] [address] Dr [address] [place], [place] PCP - General Internal Medicine 09/11/24 documented as of this encounter
--- OUTSIDE RECORDS SUMMARY | 2025-07-20 14:10 | XMS_ITS | Encounter Summary ---
Author Organization [facility] Address [address] [place] [address] Care Team Providers Care Remediation Technician Name Role Phone Roby Roth MD Primary Care Provider [phone] Encounter Details Date Type Department Care Team (Late st Contact Info) Description 01/19/2025 Lab Requisition [facility] - Main Lab 299 [facility] [place] [address] Roby Roth MD [address] [place] [address] [address] [place], [place] Epilepsy, unspecified, not intractable, with status epilepticus (CMS/[facility] V24, CMS/[facility] V28) Social History Tobacco Use Types [...] not intractable, with status epilepticus (CMS/HCC V24, CMS/[facility] V28) PHENYTOIN LEVEL, TOTAL Routine 01/19/2025 6:50 AM EDT Epilepsy, unspecified, not intractable, with status epilepticus (CMS/HCC V24, CMS/HCC V28) documented in this encounter Results * SST tube (01/19/2025 6:50 AM EDT) Extra Tube Hold for add-ons. 01/19/2025 9:01 AM EDT [facility] ([facility]) [facility] Comment:Auto resulted. Blood Venous blood specimen / Unknown 01/19/2025 6:50 AM EDT 01/19/2025 7:22 AM EDT us Roby Roth MD LAB BLOOD ORDERABLES Final Resul t Performing Organization Address [facility]/ZIP Co de Phone Number [facility] [address] [place] [address], [place] [phone] * Phenytoin level total (01/19/2025 6:50 AM EDT) Phenytoin Level 14.0 10.0 - 20.0 mcg/mL LAB CHEMISTRY METHOD 01/19/2025 8:10 AM EDT [facility] Blood Venous blood specimen / Unknown 01/19/2025 6:50 AM EDT 01/19/2025 7:22 AM EDT us Roby Roth MD LAB BLOOD ORDERABLES Final Resul t Performing Organization Address [facility]/ZIP Co de Phone Number [facility] [address] [place] [address], [place] [phone] documented in this encounter Visit Diagnoses Diagnosis Epilepsy, unspecified, not intractable, with status epilepticus (CMS/HCC V24, CMS/HCC V28) documented in this encounter Care Teams Remediation Technician Relationship Specialty Start Date End Date Roby Roth MD [address] [place] [address] [address] [place] [address] [place] PCP - General Internal Medicine 09/11/24 documented as of this encounter
--- OUTSIDE RECORDS SUMMARY | 2025-07-20 14:10 | XMS_ITS | Encounter Summary ---
Author Organization [facility] Address [address] [place] [address] Care Team Providers Care Safety Director Name Role Phone Roby Roth MD Primary Care Provider [phone] Encounter Details Date Type Department Care Team (Latest Contact Info) Description 06/09/[address] [facility] - Main Lab [address] [facility] [place] [address] Roby Roth MD [address] [place] [address] Dr [address] [place] [address] 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 [...] injury documented in this encounter Care Teams Safety Director Relationship Specialty Start Date End Date Roby Roth MD [address] [place] [address] Dr [address] [place], [place] PCP - General Internal Medicine 09/11/24 documented as of this encounter
--- OUTSIDE RECORDS SUMMARY | 2025-07-20 14:10 | XMS_ITS | Encounter Summary ---
Author Organization [facility] Address [address] [place] [address] Care Team Providers Care Student Teaching Coordinator Name Role Phone Roby Roth MD Primary Care Provider [phone] Encounter Details Date Type Department Care Team (Late st Contact Info) Description 02/24/2025 Lab Requisition [facility] - Main Lab [address] [place] [address] Roby Roth MD [address] [place] [address] Dr [address] [place], [place] Unspecified convulsions (CMS/HCC V24, CMS/HCC V28) [...] LAB CHEMISTRY METHOD 02/24/2025 8:10 AM EDT [facility] ([facility]) [facility] Blood Venous blood specimen / Unknown 02/24/2025 5:50 AM EDT 02/24/2025 6:49 AM EDT us Roby Roth MD LAB BLOOD ORDERABLES Final Resul t [facility] ([facility]) HOSPITAL LAB [address] [place] [address], documented in this encounter Visit Diagnoses Diagnosis Unspecified convulsions (CMS/HCC V24, CMS/HCC V28) documented in this encounter Care Teams Student Teaching Coordinator Relationship Specialty Start Date End Date Roby Roth MD [address] [place] [address] Dr [address] [place], [place] PCP - General Internal Medicine 09/11/24 documented as of this encounter
--- OUTSIDE RECORDS SUMMARY | 2025-07-20 14:10 | XMS_ITS | Encounter Summary ---
Author Organization [facility] Address [address] [place] [address] Care Team Providers Care Central Supply Technician Name Role Phone Roby Roth MD Primary Care Provider [phone] Encounter Details Date Type Department Care Team (Late st Contact Info) Description 02/16/2025 Lab Requisition [facility] - Main Lab [address] [place] [address] Roby Roth MD [address] [place] [address] Dr [address] [place], [place] Hypothyroidism, unspecified Social History Tobacco Use [...] Hold for add-ons. 02/16/2025 8:01 AM EDT [facility] ([email or web address] LAB Comment:Auto resulted. Blood Venous blood specimen / Unknown 02/16/2025 6:15 AM EDT 02/16/2025 7:00 AM EDT us Roby Roth MD LAB BLOOD ORDERABLES Final Resul t Performing Organization Address [facility] Co de Phone Number [facility] LAB [address] [place] [address], [place] [phone] * (ABNORMAL) Phenytoin level total (02/16/2025 6:15 AM EDT) Phenytoin Level 3.7(L) 10.0 - 20.0 mcg/mL LAB CHEMISTRY METHOD 02/16/2025 8:01 AM EDT [facility] Blood Venous blood specimen / Unknown 02/16/2025 6:15 AM EDT 02/16/2025 6:59 AM EDT us Roby Roth MD LAB BLOOD ORDERABLES Final Resul t Performing Organization Address [facility] de Phone Number [facility] [address] [place] [address], [place] [phone] * Thyroxine free (02/16/2025 6:15 AM EDT) Free T4 1.27 0.70 - 1.80 ng/dL LAB CHEMISTRY METHOD 02/16/2025 10:34 AM EDT [facility] Blood Venous blood specimen / Unknown 02/16/2025 6:15 AM EDT 02/16/2025 6:59 AM EDT us Roby Roth MD LAB BLOOD ORDERABLES Final Resul t Performing Organization Address [facility]/ZIP Co de Phone Number [facility] [address] [place] [address], [place] [phone] * Thyroid stimulating hormone (02/16/2025 6:15 AM EDT) TSH 0.99 0.40 - 4.00 mcIU/mL LAB CHEMISTRY METHOD 02/16/2025 10:34 AM EDT [facility] Blood Venous blood specimen / Unknown 02/16/2025 6:15 AM EDT 02/16/2025 6:59 AM EDT us Roby Roth MD LAB BLOOD ORDERABLES Final Resul t [facility] [address] [place] [address], documented in this encounter Visit Diagnoses Diagnosis Hypothyroidism, unspecified documented in this encounter Care Teams Central Supply Technician Relationship Specialty Start Date End Date Roby Roth MD [address] [place] [address] Dr [address] [place], [place] PCP - General Internal Medicine 09/11/24 documented as of this encounter
--- OUTSIDE RECORDS SUMMARY | 2025-07-20 14:10 | XMS_ITS | Encounter Summary ---
Author Organization [facility] Address [address] [place] [address] Care Team Providers Care Financial Quantitative Analyst Name Role Phone Roby Roth MD Primary Care Provider [phone] Encounter Details Date Type Department Care Team (Latest Contact Info) Description 06/10/2025 Lab Requisition [facility] - Main Lab [address] [facility] [place] [address] Roby Roth MD [address] [place] [address] Dr [address] [place], [place] Traumatic subarachnoid hemorrhage without loss of consciousness, sequela (CMS/[facility] V24); Personal history of traumatic brain injury; [...] without macular edema, unspecified eye (CMS/HCC V24, CMS/[facility] V28) HEMOGLOBIN A1C Routine 06/10/2025 6:35 AM EDT Traumatic subarachnoid hemorrhage without loss of consciousness, sequela ([facility] V24) Personal history of traumatic brain injury Hypothyroidism, unspecified 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 edema, unspecified eye (CMS/HCC V24, [facility] V28) PHENYTOIN LEVEL, TOTAL Routine 06/10/2025 6:35 AM EDT Traumatic subarachnoid hemorrhage without loss of consciousness, sequela ([facility] V24) Personal history of traumatic brain injury Hypothyroidism, unspecified 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 edema, unspecified eye ([facility] V24, [facility] V28) COMPREHENSIVE METABOLIC PANEL Routine 06/10/2025 6:35 AM EDT Traumatic subarachnoid hemorrhage without loss of consciousness, sequela ([facility] V24) Personal history of traumatic brain injury Hypothyroidism, unspecified 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 edema, unspecified eye ([facility] V24, [facility] V28) documented in this encounter Results * (ABNORMAL) Hemoglobin A1c (06/10/2025 6:35 AM EDT) Hemoglobin A1C 9.3(H) <6.5 % LAB CHEMISTRY METHOD 06/10/2025 10:58 AM EDT [facility] Mean Bld Glu Estim. 220 mg/dL LAB CHEMISTRY METHOD 06/10/2025 10:58 AM EDT [facility] Blood Venous blood specimen / Unknown 06/10/2025 6:35 AM EDT 06/10/2025 7:22 AM EDT us Roby Roth MD LAB BLOOD ORDERABLES Final Resul t [facility] [address] [place] [address], * Phenytoin level total (06/10/2025 6:35 AM EDT) Pathologist [facility] Phenytoin Level 14.2 10.0 - 20.0 mcg/mL LAB CHEMISTRY METHOD 06/10/2025 8:30 AM EDT [facility] Blood Venous blood specimen / Unknown 06/10/2025 6:35 AM EDT 06/10/2025 7:22 AM EDT us Roby Roth MD LAB BLOOD ORDERABLES Final Resul t [facility] [address] [place] [address], [place] [phone] * Lipid panel with reflex to direct LDL (06/10/2025 6:35 AM EDT) Cholesterol 174 0 - 200 mg/dL LAB CHEMISTRY METHOD 06/10/2025 8:30 AM EDT [facility] Triglycerides 41 0 - 150 mg/dL LAB CHEMISTRY METHOD 06/10/2025 8:30 AM EDT [facility] HDL 100 >=40 mg/dL LAB CHEMISTRY METHOD 06/10/2025 8:30 AM EDT [facility] LDL Calculated 66 0 - 100 mg/dL LAB CHEMISTRY METHOD 06/10/2025 8:30 AM EDT [facility] Comment:Estimated LDL Calcul ated using equation: Total cholesterol - HDL cholesterol - (Triglycerides/5) VLDL Cholesterol Oskar 8.2 mg/dL LAB CHEMISTRY METHOD 06/10/2025 8:30 AM EDT [facility] Non HDL Chol. (LDL+VLDL) 74 <145 mg/dL LAB CHEMISTRY METHOD 06/10/2025 8:30 AM EDT [facility] Chol/HDL Ratio 1.7 0.0 - 4.4 LAB CHEMISTRY METHOD 06/10/2025 8:30 AM EDT [facility] Blood Venous blood specimen / Unknown 06/10/2025 6:35 AM EDT 06/10/2025 7:22 AM EDT us Roby Roth MD LAB BLOOD ORDERABLES Final Resul t [facility] [address] [place] [address], [place] [phone] * (ABNORMAL) Comprehensive metabolic panel (06/10/2025 6:35 AM EDT) Sodium 136 133 - 145 mmol/L LAB CHEMISTRY METHOD 06/10/2025 8:30 AM [facility] Potassium 4.9 3.5 - 5.5 mmol/L LAB CHEMISTRY METHOD 06/10/2025 8:30 AM [facility] Chloride 103 96 - 110 mmol/L LAB CHEMISTRY METHOD 06/10/2025 8:30 AM [facility] CO2 26 21 - 32 mmol/L LAB CHEMISTRY METHOD 06/10/2025 8:30 AM [facility] Anion Gap 7 3 - 11 LAB CHEMISTRY METHOD 06/10/2025 8:30 AM [facility] Glucose 68(L) 70 - 100 mg/dL LAB CHEMISTRY METHOD 06/10/2025 8:30 AM [facility] BUN 37(H) 5 - 25 mg/dL LAB CHEMISTRY METHOD 06/10/2025 8:30 AM [facility] Creatinine 1.26(H) 0.50 - 1.10 mg/dL LAB CHEMISTRY METHOD 06/10/2025 8:30 AM [facility] eGFR 51(L) >=60 mL/min/1. 73m2 LAB CHEMISTRY METHOD 06/10/2025 8:30 AM [facility] Comment:Calculation based on the Chronic Kidney Disease Epidemiology Collaboration (CKD-EPI) equation refit without adjustment for race. BUN/Creatinine Ratio 29.4 LAB CHEMISTRY METHOD 06/10/2025 8:30 AM [facility] Calcium 10.2 8.5 - 10.5 mg/dL LAB CHEMISTRY METHOD 06/10/2025 8:30 AM [facility] AST (SGOT) 25 10 - 42 unit/L LAB CHEMISTRY METHOD 06/10/2025 8:30 AM EDT [facility] ALT (SGPT) 32 10 - 60 unit/L LAB CHEMISTRY METHOD 06/10/2025 8:30 AM EDT [facility] Alkaline Phosphatase 181(H) 42 - 121 unit/L LAB CHEMISTRY METHOD 06/10/2025 8:30 AM EDT [facility] Total Protein 8.2(H) 6.0 - 8.0 g/dL LAB CHEMISTRY METHOD 06/10/2025 8:30 AM EDT [facility] Albumin 3.9 3.2 - 5.0 g/dL LAB CHEMISTRY METHOD 06/10/2025 8:30 AM EDT [facility] Total Bilirubin 0.1 0.0 - 1.4 mg/dL LAB CHEMISTRY METHOD 06/10/2025 8:30 AM EDT [facility] Blood Venous blood specimen / Unknown 06/10/2025 6:35 AM EDT 06/10/2025 7:22 AM EDT us Roby Roth MD LAB BLOOD ORDERABLES Final Resul t [facility] [address] [place] [address], documented in this encounter Visit Diagnoses Diagnosis Traumatic subarachnoid hemorrhage without loss of consciousness, sequela (CMS/HCC V24) Personal history of traumatic brain injury Hypothyroidism, unspecified 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 edema, unspecified eye (CMS/HCC V24, CMS/HCC V28) documented in this encounter Care Teams Financial Quantitative Analyst Relationship Specialty Start Date End Date Roby Roth MD [address] [place] [address] Dr [address] [place] [address] PCP - General Internal Medicine 09/11/24 documented as of this encounter
--- OUTSIDE RECORDS SUMMARY | 2025-07-20 14:10 | XMS_ITS | Encounter Summary ---
Author Organization [facility] Address [address] [place] [address] Care Team Providers Care Records Management Manager Name Role Phone Roby Roth MD Primary Care Provider [phone] Encounter Details Date Type Department Care Team (Late st Contact Info) Description 09/04/[address] [facility] - Main Lab [address] [place] [address] Roby Roth MD [address] [place] [address] [address] [place], [place] Traumatic subarachnoid hemorrhage without loss of [...] LAB CHEMISTRY METHOD 09/04/2024 8:14 AM EST [facility] ([facility]) [facility] Blood Venous blood specimen / Unknown 09/04/2024 6:38 AM EST 09/04/2024 7:13 AM EST us Roby Roth MD LAB BLOOD ORDERABLES Final Resul t [facility]) HOSPITAL LAB [address] [place] [address], documented in this encounter Visit Diagnoses Diagnosis Traumatic subarachnoid hemorrhage without loss of consciousness, sequela (CMS/HCC V24) documented in this encounter Care Teams Records Management Manager Relationship Specialty Start Date End Date Roby Roth MD [address] [place] [address] Dr [address] [place], [place] PCP - General Internal Medicine 09/11/24 documented as of this encounter
--- OUTSIDE RECORDS SUMMARY | 2025-07-20 14:10 | XMS_ITS | Encounter Summary ---
Author Organization [facility] Address [address] [place] [address] Care Team Providers Care Clerk Supervisor Name Role Phone Roby Roth MD Primary Care Provider [phone] Encounter Details Date Type Department Care Team (Late st Contact Info) Description 03/23/2025 Lab Requisition [facility] - Main Lab 299 [facility] [place] [address] Roby Roth MD [address] [place] [address] [address] [place], [place] Other intermediate teacher (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; Altered mental status, unspecified [...] DIFFERENTIAL Routine 03/23/2025 7:00 AM EDT Other assisted (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 Altered mental status, unspecified HALOPERIDOL LEVEL Routine 03/23/2025 7:0 0 AM EDT Other intermediate teacher (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 Altered mental status, unspecified LEVETIRACETAM LEVEL Routine 03/23/2025 7 :00 AM EDT Other assisted (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 Altered mental status, unspecified CBC AND DIFFERENTIAL Routine 03/23/2025 7:00 AM EDT Other intermediate teacher (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 Altered mental status, unspecified THYROID STIMULATING HORMONE Routine 03/23/2025 7:00 AM EDT Other intermediate teacher (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 Altered mental status, unspecified AMMONIA Routine 03/23/2025 7:00 AM EDT Other assisted (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 Altered mental status, unspecified PHENYTOIN LEVEL, FREE Routine 03/23/2025 7:00 AM EDT Other intermediate teacher (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 Altered mental status, unspecified documented in this encounter Results * (ABNORMAL) CBC auto differential (03/23/2025 7:00 AM EDT) [facility] WBC 3.6(L) 4.8 - 10.8 K/mcL LAB HEMETOLOGY METHOD 03/23/2025 8:33 AM [facility] RBC 3.60(L) 3.80 - 4.80 M/mcL LAB HEMETOLOGY METHOD 03/23/2025 8:33 AM [facility] Hemoglobin 10.0(L) 11.5 - 16.0 g/dL LAB HEMETOLOGY METHOD 03/23/2025 8:33 AM [facility] Hematocrit 31.4(L) 35.0 - 47.0 % LAB HEMETOLOGY METHOD 03/23/2025 8:33 AM [facility] MCV 87.5 79.0 - 98.0 FL LAB HEMETOLOGY METHOD 03/23/2025 8:33 AM [facility] MCH 27.9 27.0 - 32.0 pcg LAB HEMETOLOGY METHOD 03/23/2025 8:33 AM [facility] MCHC 31.8(L) 32.0 - 37.0 g/dL LAB HEMETOLOGY METHOD 03/23/2025 8:33 AM [facility] RDW 13.2 11.0 - 15.0 % LAB HEMETOLOGY METHOD 03/23/2025 8:33 AM [facility] Platelets 236 130 - 400 K/mcL LAB HEMETOLOGY METHOD 03/23/2025 8:33 AM [facility] MPV 10.5 7.0 - 11.0 FL LAB HEMETOLOGY METHOD 03/23/2025 8:33 AM [facility] NRBC 0.0 <1.0 % LAB HEMETOLOGY METHOD 03/23/2025 8:33 AM [facility] NRBC Absolute 0.00 <0.10 K/mcL LAB HEMETOLOGY METHOD 03/23/2025 8:33 AM [facility] Neutrophils Relative 44.4 % LAB HEMETOLOGY METHOD 03/23/2025 8:33 AM [facility] Lymphocytes Relative 43.5 % LAB HEMETOLOGY METHOD 03/23/2025 8:33 AM [facility] Monocytes Relative 9.3 % LAB HEMETOLOGY METHOD 03/23/2025 8:33 AM [facility] Eosinophils Relative 2.2 % LAB HEMETOLOGY METHOD 03/23/2025 8:33 AM [facility] Basophils Relative 0.3 % LAB HEMETOLOGY METHOD 03/23/2025 8:33 AM [facility] Immature Granulocytes Relative 0.3 % LAB HEMETOLOGY METHOD 03/23/2025 8:33 AM [facility] Neutrophils Absolute 1.58 1.50 - 7.00 K/mcL LAB HEMETOLOGY METHOD 03/23/2025 8:33 AM [facility] Lymphocytes Absolute 1.55 1.00 - 5.00 K/mcL LAB HEMETOLOGY METHOD 03/23/2025 8:33 AM [facility] Monocytes Absolute 0.33 0.20 - 1.00 K/mcL LAB HEMETOLOGY METHOD 03/23/2025 8:33 AM [facility] Eosinophils Absolute 0.08 0.00 - 0.50 K/mcL LAB HEMETOLOGY METHOD 03/23/2025 8:33 AM EDT [facility] Basophils Absolute 0.01 0.00 - 0.20 K/mcL LAB HEMETOLOGY METHOD 03/23/2025 8:33 AM EDT [facility] Immature Granulocytes Absolute 0.01 0.00 - 0.03 K/[facility] LAB HEMETOLOGY METHOD 03/23/2025 8:33 AM EDT [facility] Blood Venous blood specimen / Unknown 03/23/2025 7:00 AM EDT 03/23/2025 7:43 AM EDT Roby Roth MD LAB BLOOD ORDERABLES Final Resul t [facility] [address] [place] [address], * Levetiracetam level (03/23/2025 7:00 AM EDT) Levetiracetam 36.1 3.0 - 60.0 ug/mL 03/25/2025 5:[address] [facility] Comment: Steady state trough serum or plasma levels following doses of 1000 to 3000 mg/Day: 3 to 37 ug/mL. The same dosage regimen will typically result in peak levels of 10 to 60 ug/mL, at approximately 1.5 hours post dose. If applicable, any drug confirmation testing reported here was developed and the performance characteristics determined by [facility]. This confirmation testing has not been cleared or approved by the FDA. The laboratory is regulated under CLIA as qualified to perform high-complexity testing. This test is used for patient testing purposes. It should not be regarded as investigational or for research. Test performed at [facility], [address] , [place] [address] Fatemeh Godfrey MD, PhD - It Applications Developer Blood Venous blood specimen / Unknown 03/23/2025 7:00 AM EDT 03/23/2025 7:43 AM EDT us Roby Roth MD LAB BLOOD ORDERABLES Final Resul t Performing Organization Address City/[facility]/ZIP Co de Phone Number [facility] [address] [place] [address] * (ABNORMAL) Haloperidol level (03/23/2025 7:00 AM EDT) Haloperidol 4(L) 5 - 15 ng/mL 03/31/2025 11:40 PM EDT [facility] Comment: This test was developed and its analytical performance characteristics have been determined by [facility]. It has not been cleared or approved by the FDA. This assay has been validated pursuant to the CLIA regulations and is used for clinical purposes. TEST PERFORMED AT: [facility] [address] [address] EVAN MOSCOSO MD Blood Venous blood specimen / Unknown 03/23/2025 7:00 AM EDT 03/23/2025 7:43 AM EDT us Roby Roth MD LAB BLOOD ORDERABLES Final Resul t Performing Organization Address [facility] Co de Phone Number [facility] [address] [place] [address] * Ammonia (03/23/2025 7:00 AM EDT) Ammonia 23 11 - 35 mcmol/L LAB CHEMISTRY METHOD 03/23/2025 8:41 AM EDT [facility] Blood Venous blood specimen / Unknown 03/23/2025 7:00 AM EDT 03/23/2025 7:43 AM EDT us Roby Roth MD LAB BLOOD ORDERABLES Final Resul t Performing Organization Address City/[facility]/ZIP Co de Phone Number [facility] [address] [place] [address], [place] [phone] * (ABNORMAL) Thyroid stimulating hormone (03/23/2025 7:00 AM EDT) TSH 0.17(L) 0.40 - 4.00 mcIU/mL LAB CHEMISTRY METHOD 03/23/2025 9:50 AM EDT [facility] Blood Venous blood specimen / Unknown 03/23/2025 7:00 AM EDT 03/23/2025 7:43 AM EDT us Roby Roth MD LAB BLOOD ORDERABLES Final Resul t Performing Organization Address [facility] Co de Phone Number [facility] [address] [place] [address], [place] [phone] * (ABNORMAL) Phenytoin level free (03/23/2025 7:00 AM EDT) Phenytoin, Free (Dilantin) <0.8(L) 0.8 - 2.0 ug/mL 03/25/2025 1:[address] [facility] Comment: Phenytoin free toxic level: >3.0 ug/mL If applicable, any drug confirmation testing reported here was developed and the performance characteristics determined by [facility]. This confirmation testing has not been cleared or approved by the FDA. The laboratory is regulated under CLIA as qualified to perform high-complexity testing. This test is used for patient testing purposes. It should not be regarded as investigational or for research. Test performed at [facility], [address] , [place], [place] [id number] Fatemeh Godfrey MD, PhD - It Applications Developer Blood Venous blood specimen / Unknown 03/23/2025 7:00 AM EDT 03/23/2025 7:43 AM EDT us Roby Roth MD LAB BLOOD ORDERABLES Final Resul t Performing Organization Address [facility]/ZIP Co de Phone Number [facility] [address] [place] [address] documented in this encounter Visit Diagnoses Diagnosis Other intermediate teacher (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 Altered mental status, unspecified documented in this encounter Care Teams Clerk Supervisor Relationship Specialty Start Date End Date Roby Roth MD [address] [place] [address] [address] JOSÉ Guerrero PCP - General Internal Medicine 09/11/24 documented as of this encounter
--- OUTSIDE RECORDS SUMMARY | 2025-07-20 14:10 | XMS_ITS | Encounter Summary ---
Author Organization [facility] Address [address] [place] [address] Care Team Providers Care Environmental Services Assistant Name Role Phone Roby Roth MD Primary Care Provider [phone] Encounter Details Date Type Department Care Team (Late st Contact Info) Description 07/24/2024 Lab Requisition [facility] - Main Lab 299 [facility] [place] [address] Roby Roth MD [address] [place] [address] [address] [place], [place] Hypothyroidism, unspecified; Unspecified convulsions (CMS/HCC V24, [...] CBC auto differential (07/24/2024 4:55 AM EST) [facility] WBC 8.9 4.8 - 10.8 K/mcL LAB HEMETOLOGY METHOD 07/24/2024 6:27 AM [facility] RBC 3.50(L) 3.80 - 4.80 M/mcL LAB HEMETOLOGY METHOD 07/24/2024 6:27 AM [facility] Hemoglobin 10.0(L) 11.5 - 16.0 g/dL LAB HEMETOLOGY METHOD 07/24/2024 6:27 AM [facility] Hematocrit 31.4(L) 35.0 - 47.0 % LAB HEMETOLOGY METHOD 07/24/2024 6:27 AM [facility] MCV 89.0 79.0 - 98.0 FL LAB HEMETOLOGY METHOD 07/24/2024 6:27 AM [facility] MCH 28.3 27.0 - 32.0 pcg LAB HEMETOLOGY METHOD 07/24/2024 6:27 AM [facility] MCHC 31.8(L) 32.0 - 37.0 g/dL LAB HEMETOLOGY METHOD 07/24/2024 6:27 AM [facility] RDW 13.7 11.0 - 15.0 % LAB HEMETOLOGY METHOD 07/24/2024 6:27 AM [facility] Platelets 243 130 - 400 K/mcL LAB HEMETOLOGY METHOD 07/24/2024 6:27 AM [facility] MPV 10.8 7.0 - 11.0 FL LAB HEMETOLOGY METHOD 07/24/2024 6:27 AM [facility] NRBC 0.0 <1.0 % LAB HEMETOLOGY METHOD 07/24/2024 6:27 AM [facility] NRBC Absolute 0.00 <0.10 K/mcL LAB HEMETOLOGY METHOD 07/24/2024 6:27 AM [facility] Neutrophils Relative 65.4 % LAB HEMETOLOGY METHOD 07/24/2024 6:27 AM [facility] Lymphocytes Relative 27.0 % LAB HEMETOLOGY METHOD 07/24/2024 6:27 AM [facility] Monocytes Relative 7.0 % LAB HEMETOLOGY METHOD 07/24/2024 6:27 AM [facility] Eosinophils Relative 0.2 % LAB HEMETOLOGY METHOD 07/24/2024 6:27 AM [facility] Basophils Relative 0.2 % LAB HEMETOLOGY METHOD 07/24/2024 6:27 AM [facility] Immature Granulocytes Relative 0.2 % LAB HEMETOLOGY METHOD 07/24/2024 6:27 AM [facility] Neutrophils Absolute 5.83 1.50 - 7.00 K/mcL LAB HEMETOLOGY METHOD 07/24/2024 6:27 AM [facility] Lymphocytes Absolute 2.41 1.00 - 5.00 K/mcL LAB HEMETOLOGY METHOD 07/24/2024 6:27 AM [facility] Monocytes Absolute 0.62 0.20 - 1.00 K/mcL LAB HEMETOLOGY METHOD 07/24/2024 6:27 AM [facility] Eosinophils Absolute 0.02 0.00 - 0.50 K/mcL LAB HEMETOLOGY METHOD 07/24/2024 6:27 AM EST [facility] Basophils Absolute 0.02 0.00 - 0.20 K/[facility] LAB HEMETOLOGY METHOD 07/24/2024 6:27 AM EST [facility] Immature Granulocytes Absolute 0.02 0.00 - 0.03 K/[facility] LAB HEMETOLOGY METHOD 07/24/2024 6:27 AM EST [facility] Blood Venous blood specimen / Unknown 07/24/2024 4:55 AM EST 07/24/2024 6:26 AM EST us Roby Roth MD LAB BLOOD ORDERABLES Final Resul t Performing Organization Address City/[facility]/ZIP Co de Phone Number [facility] [address] [place] [address], [place] [phone] * (ABNORMAL) Thyroid stimulating hormone (07/24/2024 4:55 AM EST) TSH 13.12(H) 0.40 - 4.00 mcIU/mL LAB CHEMISTRY METHOD 07/24/2024 7:00 AM EST [facility] Blood Venous blood specimen / Unknown 07/24/2024 4:55 AM EST 07/24/2024 6:26 AM EST us Roby Roth MD LAB BLOOD ORDERABLES Final Resul t [facility] [address] [place] [address], [place] [phone] * (ABNORMAL) Phenytoin level total (07/24/2024 4:55 AM EST) Phenytoin Level 8.3(L) 10.0 - 20.0 mcg/mL LAB CHEMISTRY METHOD 07/24/2024 6:51 AM EST [facility] Blood Venous blood specimen / Unknown 07/24/2024 4:55 AM EST 07/24/2024 6:26 AM EST us Roby Roth MD LAB BLOOD ORDERABLES Final Resul t Performing Organization Address City/[facility]/ZIP Co de Phone Number [facility] [address] [place] [address], * (ABNORMAL) Haloperidol level (07/24/2024 4:55 AM EST) Haloperidol 3(L) 5 - 15 ng/mL 08/05/2024 3:18 PM EST [facility] Comment: This test was developed and its analytical performance characteristics have been determined by [employer] It has not been cleared or approved by the FDA. This assay has been validated pursuant to the CLIA regulations and is used for clinical purposes. TEST PERFORMED AT: [facility] [address] [address] EVAN MOSCOSO MD Blood Venous blood specimen / Unknown 07/24/2024 4:55 AM EST 07/24/2024 6:26 AM EST us Roby Roth MD LAB BLOOD ORDERABLES Final Resul t Performing Organization Address City/[facility]/ZIP Co de Phone Number [facility] [address] [place] [address] * Levetiracetam level (07/24/2024 4:55 AM EST) Levetiracetam 31.5 3.0 - 60.0 ug/mL 07/27/2024 6:16 AM EST [facility] Comment: Steady state trough serum or plasma levels following doses of 1000 to 3000 mg/Day: 3 to 37 ug/mL. The same dosage regimen will typically result in peak levels of 10 to 60 ug/mL, at approximately 1.5 hours post dose. If applicable, any drug confirmation testing reported here was developed and the performance characteristics determined by [facility]. This confirmation testing has not been cleared or approved by the FDA. The laboratory is regulated under CLIA as qualified to perform high-complexity testing. This test is used for patient testing purposes. It should not be regarded as investigational or for research. Test performed at [facility], [address], [place] [address] Fatemeh Godfrey MD, PhD - Oven Drier Tender Blood Venous blood specimen / Unknown 07/24/2024 4:55 AM EST 07/24/2024 6:26 AM EST us Roby Roth MD LAB BLOOD ORDERABLES Final Resul t [facility] [address] [place] [address] * (ABNORMAL) Comprehensive metabolic panel (07/24/2024 4:55 AM EST) Sodium 130(L) 133 - 145 mmol/L LAB CHEMISTRY METHOD 07/24/2024 6:51 AM [facility] Potassium 4.2 3.5 - 5.5 mmol/L LAB CHEMISTRY METHOD 07/24/2024 6:51 AM [facility] Chloride 96 96 - 110 mmol/L LAB CHEMISTRY METHOD 07/24/2024 6:51 AM [facility] CO2 25 21 - 32 mmol/L LAB CHEMISTRY METHOD 07/24/2024 6:51 AM [facility] Anion Gap 9 3 - 11 LAB CHEMISTRY METHOD 07/24/2024 6:51 AM [facility] Glucose 253(H) 70 - 100 mg/dL LAB CHEMISTRY METHOD 07/24/2024 6:51 AM [facility] BUN 41(H) 5 - 25 mg/dL LAB CHEMISTRY METHOD 07/24/2024 6:51 AM [facility] Creatinine 2.14(H) 0.50 - 1.10 mg/dL LAB CHEMISTRY METHOD 07/24/2024 6:51 AM [facility] eGFR 27(L) >=60 mL/min/1. 73m2 LAB CHEMISTRY METHOD 07/24/2024 6:51 AM [facility] Comment:Calculation based on the Chronic Kidney Disease Epidemiology Collaboration (CKD-EPI) equation refit without adjustment for race. BUN/Creatinine Ratio 19.2 LAB CHEMISTRY METHOD 07/24/2024 6:51 AM [facility] Calcium 9.8 8.5 - 10.5 mg/dL LAB CHEMISTRY METHOD 07/24/2024 6:51 AM [facility] AST (SGOT) 18 10 - 42 unit/L LAB CHEMISTRY METHOD 07/24/2024 6:51 AM [facility] ALT (SGPT) 26 10 - 60 unit/L LAB CHEMISTRY METHOD 07/24/2024 6:51 AM [facility] Alkaline Phosphatase 183(H) 42 - 121 unit/L LAB CHEMISTRY METHOD 07/24/2024 6:51 AM [facility] Total Protein 8.1(H) 6.0 - 8.0 g/dL LAB CHEMISTRY METHOD 07/24/2024 6:51 AM [facility] Albumin 4.2 3.2 - 5.0 g/dL LAB CHEMISTRY METHOD 07/24/2024 6:51 AM [facility] Total Bilirubin 0.2 0.0 - 1.4 mg/dL LAB CHEMISTRY METHOD 07/24/2024 6:51 AM [facility] Blood Venous blood specimen / Unknown 07/24/2024 4:55 AM EST 07/24/2024 6:26 AM EST us Roby Roth MD LAB BLOOD ORDERABLES Final Resul t [facility] [address] [place] [address], documented in this encounter Visit Diagnoses Diagnosis Hypothyroidism, unspecified Unspecified convulsions (CMS/HCC V24, CMS/HCC V28) documented in this encounter Care Teams Environmental Services Assistant Relationship Specialty Start Date End Date Roby Roth MD [address] [place] [address] Dr [address] [facility] [place], [place] PCP - General Internal Medicine 09/11/24 documented as of this encounter
--- OUTSIDE RECORDS SUMMARY | 2025-07-20 14:10 | XMS_ITS | Encounter Summary ---
Author Organization [facility] Address [address] [place] [address] Care Team Providers Care Turner Machine Operator Name Role Phone Roby Roth MD Primary Care Provider [phone] Encounter Details Date Type Department Care Team (Late st Contact Info) Description 08/07/2024 Lab Requisition [facility] - Main Lab [address] [place] [address] Roby Roth MD [address] [place] [address] [address] [place], [place] Traumatic subarachnoid hemorrhage without loss of [...] LAB CHEMISTRY METHOD 08/07/2024 10:47 AM EST [facility] Blood Venous blood specimen / Unknown 08/07/2024 9:31 AM EST 08/07/2024 10:15 AM EST us Roby Roth MD LAB BLOOD ORDERABLES Final Resul t [facility] [address] [place] [address], documented in this encounter Visit Diagnoses Diagnosis Traumatic subarachnoid hemorrhage without loss of consciousness, sequela (CMS/HCC V24) documented in this encounter Care Teams Turner Machine Operator Relationship Specialty Start Date End Date Roby Roth MD [address] [facility] [address] [place], [place] PCP - General Internal Medicine 09/11/24 documented as of this encounter
--- OUTSIDE RECORDS SUMMARY | 2025-07-20 14:10 | XMS_ITS | Encounter Summary ---
Author Organization [facility] Address [address] [place] [address] Care Team Providers Care Syrup Shed Supervisor Name Role Phone Roby Roth MD Primary Care Provider [phone] Encounter Details Date Type Department Care Team (Latest Contact Info) Description 07/06/2024 Lab Requisition [facility] - Main Lab [address] [place] [address] Roby Roth MD [address] [place] [address] Dr [address] [place], [place] Type 2 diabetes mellitus with [...] 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 edema, unspecified eye (CMS/[facility]) documented in this encounter Results * Phenytoin level total (07/06/2024 5:45 AM EST) Phenytoin Level 10.1 10.0 - 20.0 mcg/mL LAB CHEMISTRY METHOD 07/06/2024 7:54 AM EST [facility] Blood Venous blood specimen / Unknown 07/06/2024 5:45 AM EST 07/06/2024 7:19 AM EST Roby Roth MD LAB BLOOD ORDERABLES Final Resul t [facility] [address] [place] [address], documented in this encounter Visit Diagnoses Diagnosis 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 edema, unspecified eye (CMS/[facility] V24, CMS/[facility] V28) documented in this encounter Care Teams Syrup Shed Supervisor Relationship Specialty Start Date End Date Roby Roth MD [address] [place] [address] Dr [address] [place], [place] PCP - General Internal Medicine 09/11/24 documented as of this encounter
--- OUTSIDE RECORDS SUMMARY | 2025-07-20 14:10 | XMS_ITS | Encounter Summary ---
Author Organization [facility] Address [address] [place] [address] Care Team Providers Care Cissp Name Role Phone Roby Roth MD Primary Care Provider Encounter Details Date Type Department Care Team (Late st Contact Info) Description 01/12/2025 Lab Requisition [facility] - Main Lab [address] [place] [address] Roby Roth MD [address] [place] [address] [address] [place], [place] Other seizures (CMS/HCC V24, CMS/HCC V28); [...] LAB CHEMISTRY METHOD 01/14/2025 8:21 PM EDT [facility] Blood Venous blood specimen / Unknown 01/12/2025 01/12/2025 9:23 AM EDT us Roby Roth MD LAB BLOOD ORDERABLES Final Resul t Performing Organization Address City/[facility]/ZIP Co de Phone Number [facility] [address] [place] [address], [place] [phone] * (ABNORMAL) Phenytoin level total (01/12/2025 12:00 AM EDT) Phenytoin Level 28.0(HH) 10.0 - 20.0 mcg/mL LAB CHEMISTRY METHOD 01/12/2025 10:14 AM EDT [facility] Blood Venous blood specimen / Unknown 01/12/2025 01/12/2025 9:23 AM EDT us Roby Roth MD LAB BLOOD ORDERABLES Final Resul t Performing Organization Address [facility]/ZIP Co de Phone Number [facility] [address] [place] [address], [place] [phone] documented in this encounter Visit Diagnoses Diagnosis Other seizures (CMS/HCC V24, CMS/HCC V28) Hypothyroidism, unspecified documented in this encounter Care Teams Cissp Relationship Specialty Start Date End Date Roby Roth MD [address] [place] [address] PCP - General Internal Medicine 09/11/24 documented as of this encounter
--- OUTSIDE RECORDS SUMMARY | 2025-07-20 14:10 | XMS_ITS | Encounter Summary ---
Author Organization [facility] Address [address] [place] [address] Care Team Providers Care Writing Center Director Name Role Phone Roby Roth MD Primary Care Provider [phone] Encounter Details Date Type Department Care Team (Late st Contact Info) Description 08/15/2024 Lab Requisition [facility] - Main Lab 299 [facility] [place] [address] Roby Roth MD [address] [place] [address] [address] [place], [place] Unspecified convulsions (CMS/HCC V24, CMS/HCC V28) [...] LAB CHEMISTRY METHOD 08/15/2024 8:09 AM EST [facility] Blood Venous blood specimen / Unknown 08/15/2024 6:20 AM EST 08/15/2024 7:49 AM EST us Roby Roth MD LAB BLOOD ORDERABLES Final Resul t [facility] [address] [place] [address], documented in this encounter Visit Diagnoses Diagnosis Unspecified convulsions (CMS/HCC V24, CMS/HCC V28) documented in this encounter Care Teams Writing Center Director Relationship Specialty Start Date End Date Roby Roth MD [address] [facility] [address] [place], [place] PCP - General Internal Medicine 09/11/24 documented as of this encounter
--- OUTSIDE RECORDS SUMMARY | 2025-07-20 14:10 | XMS_ITS | Encounter Summary ---
Author Organization [facility] Address [address] [place] [address] Care Team Providers Care Supervisor Waterproofing Name Role Phone Roby Roth MD Primary Care Provider [phone] Encounter Details Date Type Department Care Team (Late st Contact Info) Description 03/13/2025 Lab Requisition [facility] - Main Lab [address] [place] [address] Roby Roth MD [address] [place] [address] [address] [place], [place] Unspecified convulsions (CMS/HCC V24, CMS/HCC V28) [...] LAB CHEMISTRY METHOD 03/13/2025 11:[address] [facility] Blood Venous blood specimen / Unknown 03/13/2025 10:55 AM EDT 03/13/2025 11:21 AM EDT us Roby Roth MD LAB BLOOD ORDERABLES Final Resul t [facility] [address] [place] [address], documented in this encounter Visit Diagnoses Diagnosis Unspecified convulsions (CMS/HCC V24, CMS/HCC V28) documented in this encounter Care Teams Supervisor Waterproofing Relationship Specialty Start Date End Date Roby Roth MD [address] [place] [address] Dr [address] [place], [place] PCP - General Internal Medicine 09/11/24 documented as of this encounter
--- OUTSIDE RECORDS SUMMARY | 2025-07-20 14:10 | XMS_ITS | Clinical Summary ---
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 [place] [address] 09/15/2025 7:30 AM EST Hospital Encounter [facility] [address] [phone] Jelani Martinez MD [address] [place] [address] 09/15/2025 7:30 AM EST - 09/15/2025 8:30 AM EST Surgery [facility] [address] [place] [phone] Jelani Martinez MD [address] [place] [address] PHACOEMULSIFICATION WITH INTRAOCULAR LENS RIGHT EYE [65483 (CPT )] Scheduled Procedures Name Priority Associated [...] patient's age to complete this topic Insurance [place]
--- OUTSIDE RECORDS SUMMARY | 2025-07-20 14:10 | XMS_ITS | Encounter Summary ---
Author Organization [facility] Address [address] [place] [address] Care Team Providers Care Tooth Cutter Spur Name Role Phone Roby Roth MD Primary Care Provider [phone] Encounter Details Date Type Department Care Team (Latest Contact Info) Description 06/02/2025 Lab Requisition [facility] - Main Lab [address] [facility] [place] [address] Roby Roth MD [address] [place] [address] [address] [place], [place] 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 edema, unspecified eye (CMS/HCC V24, CMS/HCC V28); Hyperlipidemia, unspecified; Other group home (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 Social History Tobacco Use [...] (CMS/HCC V24, CMS/HCC V28) Hyperlipidemia, unspecified Other assistant terminal manager (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 HEMOGLOBIN A1C Routine 06/02/2025 7:00 AM EDT 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 edema, unspecified eye (CMS/HCC V24, CMS/HCC V28) Hyperlipidemia, unspecified Other group home (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 PHENYTOIN LEVEL, TOTAL Routine 06/02/2025 7:00 AM EDT 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 edema, unspecified eye ([facility] V24, [facility] V28) Hyperlipidemia, unspecified Other group home (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 COMPREHENSIVE METABOLIC PANEL Routine 06/02/2025 7:00 AM EDT 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 edema, unspecified eye ([facility] V24, [facility] V28) Hyperlipidemia, unspecified Other assistant terminal manager (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 documented in this encounter Results * Phenytoin level total (06/02/2025 7:00 AM EDT) Phenytoin Level 14.7 10.0 - 20.0 mcg/mL LAB CHEMISTRY METHOD 06/02/2025 8:17 AM EDT [facility] Blood Venous blood specimen / Unknown 06/02/2025 7:00 AM EDT 06/02/2025 7:51 AM EDT us Roby Roth MD LAB BLOOD ORDERABLES Final Resul t Performing Organization Address City/[facility]/ZIP Co de Phone Number [facility] [address] [place] [address], [place] [phone] * (ABNORMAL) Hemoglobin A1c (06/02/2025 7:00 AM EDT) Hemoglobin A1C 9.2(H) <6.5 % LAB CHEMISTRY METHOD 06/02/2025 2:58 PM EDT [facility] Mean Bld Glu Estim. 217 mg/dL LAB CHEMISTRY METHOD 06/02/2025 2:58 PM EDT [facility] Blood Venous blood specimen / Unknown 06/02/2025 7:00 AM EDT 06/02/2025 7:51 AM EDT us Roby Roth MD LAB BLOOD ORDERABLES Final Resul t [facility] [address] [place] [address], [place] [phone] * Lipid panel with reflex to direct LDL (06/02/2025 7:00 AM EDT) Cholesterol 191 0 - 200 mg/dL LAB CHEMISTRY METHOD 06/02/2025 8:25 AM EDT [facility] Triglycerides 50 0 - 150 mg/dL LAB CHEMISTRY METHOD 06/02/2025 8:25 AM EDT [facility] HDL 110 >=40 mg/dL LAB CHEMISTRY METHOD 06/02/2025 8:25 AM EDT [facility] LDL Calculated 71 0 - 100 mg/dL LAB CHEMISTRY METHOD 06/02/2025 8:25 AM EDT [facility] Comment:Estimated LDL Calcul ated using equation: Total cholesterol - HDL cholesterol - (Triglycerides/5) VLDL Cholesterol Oskar 10 mg/dL LAB CHEMISTRY METHOD 06/02/2025 8:25 AM EDT [facility] Non HDL Chol. (LDL+VLDL) 81 <145 mg/dL LAB CHEMISTRY METHOD 06/02/2025 8:25 AM EDT [facility] Chol/HDL Ratio 1.7 0.0 - 4.4 LAB CHEMISTRY METHOD 06/02/2025 8:25 AM T [facility] Blood Venous blood specimen / Unknown 06/02/2025 7:00 AM EDT 06/02/2025 7:51 AM EDT us Roby Roth MD LAB BLOOD ORDERABLES Final Resul t [facility] [address] [place] [address], [place] [phone] * (ABNORMAL) Comprehensive metabolic panel (06/02/2025 7:00 AM EDT) Sodium 128(L) 133 - 145 mmol/L LAB CHEMISTRY METHOD 06/02/2025 8:25 AM [facility] Potassium 4.2 3.5 - 5.5 mmol/L LAB CHEMISTRY METHOD 06/02/2025 8:25 AM [facility] Chloride 90(L) 96 - 110 mmol/L LAB CHEMISTRY METHOD 06/02/2025 8:25 AM [facility] CO2 27 21 - 32 mmol/L LAB CHEMISTRY METHOD 06/02/2025 8:25 AM [facility] Anion Gap 11 3 - 11 LAB CHEMISTRY METHOD 06/02/2025 8:25 AM [facility] Glucose 192(H) 70 - 100 mg/dL LAB CHEMISTRY METHOD 06/02/2025 8:25 AM [facility] BUN 28(H) 5 - 25 mg/dL LAB CHEMISTRY METHOD 06/02/2025 8:25 AM [facility] Creatinine 1.58(H) 0.50 - 1.10 mg/dL LAB CHEMISTRY METHOD 06/02/2025 8:25 AM [facility] eGFR 39(L) >=60 mL/min/1. 73m2 LAB CHEMISTRY METHOD 06/02/2025 8:25 AM [facility] Comment:Calculation based on the Chronic Kidney Disease Epidemiology Collaboration (CKD-EPI) equation refit without adjustment for race. BUN/Creatinine Ratio 17.7 LAB CHEMISTRY METHOD 06/02/2025 8:25 AM [facility] Calcium 10.2 8.5 - 10.5 mg/dL LAB CHEMISTRY METHOD 06/02/2025 8:25 AM [facility] AST (SGOT) 24 10 - 42 unit/L LAB CHEMISTRY METHOD 06/02/2025 8:25 AM [facility] ALT (SGPT) 36 10 - 60 unit/L LAB CHEMISTRY METHOD 06/02/2025 8:25 AM [facility] Alkaline Phosphatase 201(H) 42 - 121 unit/L LAB CHEMISTRY METHOD 06/02/2025 8:25 AM EDT [facility] Total Protein 8.7(H) 6.0 - 8.0 g/dL LAB CHEMISTRY METHOD 06/02/2025 8:25 AM EDT [facility] Albumin 4.4 3.2 - 5.0 g/dL LAB CHEMISTRY METHOD 06/02/2025 8:25 AM EDT [facility] Total Bilirubin 0.2 0.0 - 1.4 mg/dL LAB CHEMISTRY METHOD 06/02/2025 8:25 AM EDT [facility] Blood Venous blood specimen / Unknown 06/02/2025 7:00 AM EDT 06/02/2025 7:51 AM EDT us Roby Roth MD LAB BLOOD ORDERABLES Final Resul t [facility] [address] [place] [address], [place] [phone] documented in this encounter Visit Diagnoses Diagnosis 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 edema, unspecified eye (CMS/HCC V24, CMS/HCC V28) Hyperlipidemia, unspecified Other assistant terminal manager (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 documented in this encounter Care Teams Tooth Cutter Spur Relationship Specialty Start Date End Date Roby Roth MD [address] [place], [place] PCP - General Internal Medicine 09/11/24 documented as of this encounter
--- OUTSIDE RECORDS SUMMARY | 2025-07-20 14:10 | XMS_ITS | Encounter Summary ---
Author Organization [facility] Address [address] [place] [address] Care Team Providers Care Manager Behavioral Name Role Phone Roby Roth MD Primary Care Provider [phone] Encounter Details Date Type Department Care Team (Late st Contact Info) Description 05/10/2025 Lab Requisition [facility] - Main Lab [address] [facility] [place] [address] Roby Roth MD [address] [place] [address] Dr [address] [place], [place] Traumatic subarachnoid hemorrhage without loss of [...] LAB CHEMISTRY METHOD 05/10/2025 9:25 AM EDT [facility] Blood Venous blood specimen / Unknown 05/10/2025 6:00 AM EDT 05/10/2025 6:50 AM EDT us Roby Roth MD LAB BLOOD ORDERABLES Final Resul t Performing Organization Address City/[facility]/ZIP Co de Phone Number [facility] [address] [place] [address], [place] [phone] * Phenytoin level total (05/10/2025 6:00 AM EDT) Phenytoin Level 17.1 10.0 - 20.0 mcg/mL LAB CHEMISTRY METHOD 05/10/2025 7:46 AM EDT [facility] Blood Venous blood specimen / Unknown 05/10/2025 6:00 AM EDT 05/10/2025 6:50 AM EDT us Roby Roth MD LAB BLOOD ORDERABLES Final Resul t Performing Organization Address [facility]/ZIP Co de Phone Number [facility] [address] [place] [address], [place] [phone] documented in this encounter Visit Diagnoses Diagnosis Traumatic subarachnoid hemorrhage without loss of consciousness, sequela (CMS/HCC V24) documented in this encounter Care Teams Manager Behavioral Relationship Specialty Start Date End Date Roby Roth MD [address] [place] [address] [place] [address] PCP - General Internal Medicine 09/11/24 documented as of this encounter
--- OUTSIDE RECORDS SUMMARY | 2025-07-20 14:10 | XMS_ITS | Clinical Summary ---
Author Organization [facility] Address [address] [place] [address] Phone Care Team Providers Care Apron Man Name Role Phone Roby Roth DO Primary Care Provider [phone] Allergies No known active allergies Medications docusate sodium (COLACE) 100 MG capsule Take 100 mg by mouth 2 (two) times a day. Active ferrous sulfate 325 mg (65 mg [place] iron) tablet Take 325 mg by mouth [...] Insurance [place] Advance Directives For more information, please contact: [phone] (9AM - 5PM [facility], Saturday-Saturday) Healthcare Agents on File Name Relationship Healthcare Agent Relationshi p Communication Guadalupe Peralta Other Other (no proxy form on f ile) Care Teams Apron Man Relationship Specialty Start Date End Date Roby Roth DO [address] [place] [address] PCP - General Internal Medicine 10/28/18 Additional Source Comments The information contained in this document represents components of the legal health record. It is not the complete legal health record.[facility]
--- OUTSIDE RECORDS SUMMARY | 2025-07-20 14:10 | XMS_ITS | Encounter Summary ---
Author Organization [facility] Address [address] [place] [address] Care Team Providers Care Child Development Specialist Name Role Phone Roby Roth MD Primary Care Provider [phone] Encounter Details Date Type Department Care Team (Late st Contact Info) Description 03/05/2025 Lab Requisition [facility] - Main Lab [address] [facility] [place] [address] Roby Roth MD [address] [place] [address] [address] [place], [place] Other termination clerk (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; Unspecified convulsions (CMS/HCC V24, [...] GOLD Routine 03/05/2025 6:30 AM EDT Other alf (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 Unspecified convulsions (CMS/HCC V24, CMS/HCC V28) SST - GOLD Routine 03/05/2025 6:30 AM EDT Other termination clerk (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 Unspecified convulsions (CMS/HCC V24, CMS/HCC V28) PHENYTOIN LEVEL, TOTAL Routine 03/05/2025 6:30 AM EDT Other alf (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 Unspecified convulsions (CMS/HCC V24, CMS/HCC V28) documented in this encounter Results * (ABNORMAL) Phenytoin level total (03/05/2025 6:30 AM EDT) Phenytoin Level 4.2(L) 10.0 - 20.0 mcg/mL LAB CHEMISTRY METHOD 03/08/2025 8:36 AM EDT [facility] Blood Venous blood specimen / Unknown 03/05/2025 6:30 AM EDT 03/05/2025 7:37 AM EDT us Roby Roth MD LAB BLOOD ORDERABLES Final Resul t Performing Organization Address City/[facility]/ZIP Co de Phone Number [facility] [address] [place] [address], [place] [phone] * SST tube (03/05/2025 6:30 AM EDT) Extra Tube Hold for add-ons. 03/05/2025 9:01 AM EDT [facility] Comment:Auto resulted. Blood Venous blood specimen / Unknown 03/05/2025 6:30 AM EDT 03/05/2025 7:37 AM EDT us Roby Roth MD LAB BLOOD ORDERABLES Final Resul t Performing Organization Address [facility] Co de Phone Number [facility] [address] [place] [address], [place] [phone] * SST tube (03/05/2025 6:30 AM EDT) Extra Tube Hold for add-ons. 03/05/2025 9:01 AM EDT [facility] Comment:Auto resulted. Blood Venous blood specimen / Unknown 03/05/2025 6:30 AM EDT 03/05/2025 7:37 AM EDT us Roby Roth MD LAB BLOOD ORDERABLES Final Resul t Performing Organization Address City/[facility]/ZIP Co de Phone Number [facility] [address] [place] [address], documented in this encounter Visit Diagnoses Diagnosis Other alf (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 Unspecified convulsions (CMS/HCC V24, CMS/HCC V28) documented in this encounter Care Teams Child Development Specialist Relationship Specialty Start Date End Date Roby Roth MD [address] [place] [address] Dr [address] [place], [place] PCP - General Internal Medicine 09/11/24 documented as of this encounter
--- OUTSIDE RECORDS SUMMARY | 2025-07-20 14:10 | XMS_ITS | Clinical Summary ---
Author Organization [address] Address [address] [place] [address] Phone Care Team Providers Care Pulling Unit Operator Name Role Phone Roby Roth MD Primary Care Provider [phone] Encounters Date Type Department Care Team Description 07/19/2025 Lab Requisition [facility] [address] [place] [phone] Roby Roth MD Traumatic subarachnoid hemorrhage with loss of consciousness greater than 24 hours with return to pre-existing conscious level, initial encounter ([facility] V24, [facility] V28); Personal history of traumatic brain injury 07/16/2025 Lab Requisition [facility] [address] [place] [phone] Roby Roth MD Unspecified convulsions ([facility] V24, [facility] V28) 07/04/2025 Lab Requisition [facility] [address] [place] [phone] Roby Roth MD Other fpc (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; Unspecified convulsions ([facility] V24, [facility] V28) 06/15/2025 Lab Requisition [facility] [address] [place] [phone] Roby Roth MD Unspecified convulsions ([facility] V24, [facility] V28); Hypothyroidism, unspecified; 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 edema, unspecified eye ([facility] V24, [facility] V28) 06/10/2025 Lab Requisition [facility] [address] [place] [phone] Roby Roth MD Traumatic subarachnoid hemorrhage without loss of consciousness, sequela ([facility] V24); Personal history of traumatic brain injury; Hypothyroidism, unspecified; 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 edema, unspecified eye ([facility] V24, [facility] V28) 06/09/2025 Lab Requisition [facility] [address] [place] [phone] Roby Roth MD 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 edema, unspecified eye ([facility] V24, [facility] V28); Unspecified convulsions ([facility] V24, [facility] V28); Hyperlipidemia, unspecified; Personal history of traumatic brain injury 06/02/2025 Lab Requisition [facility] [address] [place] [phone] Roby Roth MD 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 edema, unspecified eye ([facility] V24, [facility] V28); Hyperlipidemia, unspecified; Other terminal 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 05/10/2025 Lab Requisition [facility] [address] [place] [phone] Roby Roth MD Traumatic subarachnoid hemorrhage without loss of consciousness, sequela ([facility] V24) 05/04/2025 Lab Requisition [facility] [address] [place] [phone] Roby Roth MD Other terminal 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 05/02/2025 Lab Requisition [facility] [address] [place] [phone] Roby Roth MD Traumatic subarachnoid hemorrhage without loss of consciousness, sequela ([facility] V24); Encounter for therapeutic drug level monitoring 04/30/2025 Lab Requisition [facility] [address] [place] [phone] Roby Roth MD Traumatic subarachnoid hemorrhage without loss of consciousness, sequela ([facility] [place] V24) 04/25/2025 Lab Requisition [facility] [address] [place] [phone] Roby Roth MD 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 edema, unspecified eye ([facility] V24, [facility] V28) 04/23/2025 Lab Requisition [facility] [address] [place] [phone] Roby Roth MD 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 edema, unspecified eye ([facility] V24, [facility] V28) from Last 3 Months Social History [...] 08/07/2024 Depression Screening 08/19/2024 COVID-19 Vaccine ( - 2024- season) 2025 Influenza Vaccine (#1) 2025 06/03/2017 [...] return to pre-existing conscious level, initial encounter ([facility] V24, [facility] V28) Personal history of traumatic brain injury PHENYTOIN LEVEL, TOTAL Routine 07/16/2025 4:51 AM EST Unspecified convulsions (CMS/HCC V24, CMS/HCC V28) PHENYTOIN LEVEL, TOTAL Routine 07/04/2025 6:42 AM EST Other fpc (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 Unspecified convulsions (CMS/HCC V24, [...] subarachnoid hemorrhage without loss of consciousness, sequela ([facility] V24) Personal history of traumatic brain injury Hypothyroidism, unspecified 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 edema, unspecified eye (CMS/HCC V24, CMS/HCC V28) PHENYTOIN LEVEL, TOTAL Routine 06/10/2025 6:35 AM EDT Traumatic subarachnoid hemorrhage without loss of consciousness, sequela ([facility] V24) Personal history of traumatic brain injury Hypothyroidism, unspecified 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 edema, unspecified eye (CMS/HCC V24, CMS/HCC V28) LIPID PANEL WITH REFLEX TO DIRECT LDL Routine 06/10/2025 6:35 AM EDT Traumatic subarachnoid hemorrhage without loss of consciousness, sequela (CMS/HCC V24) Personal history of traumatic brain injury Hypothyroidism, unspecified 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 edema, unspecified eye (CMS/HCC V24, CMS/HCC V28) COMPREHENSIVE METABOLIC PANEL Routine 06/10/2025 6:35 [...] (CMS/HCC V24, CMS/HCC V28) Hyperlipidemia, unspecified Other terminal 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 HEMOGLOBIN A1C Routine 06/02/2025 7:00 AM EDT 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 edema, unspecified eye (CMS/HCC V24, CMS/HCC V28) Hyperlipidemia, unspecified Other terminal 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 LIPID PANEL WITH REFLEX TO DIRECT LDL Routine 06/02/2025 7:00 AM EDT 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 edema, unspecified eye (CMS/HCC V24, CMS/HCC V28) Hyperlipidemia, unspecified Other terminal 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 COMPREHENSIVE METABOLIC PANEL Routine 06/02/2025 7:00 AM EDT 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 edema, unspecified eye (CMS/HCC V24, CMS/HCC V28) Hyperlipidemia, unspecified Other fpc (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 THYROID STIMULATING HORMONE Routine 05/10/2025 6:00 AM EDT Traumatic subarachnoid hemorrhage without loss of consciousness, sequela (CMS/HCC V24) PHENYTOIN LEVEL, TOTAL Routine 05/10/2025 6:00 AM EDT Traumatic subarachnoid hemorrhage without loss of consciousness, sequela (CMS/HCC V24) THYROID STIMULATING HORMONE Routine 05/04/2025 6:40 AM EDT Other terminal 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 PHENYTOIN LEVEL, TOTAL STAT 05/02/2025 12:00 AM EDT Traumatic subarachnoid hemorrhage without loss of consciousness, sequela ([facility] V24) Encounter for therapeutic drug level monitoring THYROID STIMULATING HORMONE STAT 05/02/2025 12:00 AM EDT Traumatic subarachnoid hemorrhage without loss of consciousness, sequela ([facility] V24) Encounter for therapeutic drug level monitoring THYROID STIMULATING HORMONE STAT 04/25/2025 1:15 PM EDT 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 edema, unspecified eye ([facility] V24, [facility] V28) PHENYTOIN LEVEL, TOTAL STAT 04/25/2025 1:15 PM EDT 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 Phenytoin Level 12.9 10.0 - 20.0 mcg/mL 07/19/2025 7:48 AM EST [facility] Blood Venous blood specimen / Unknown 07/19/2025 6:45 AM EST 07/19/2025 7:20 AM EST us Roby Roth MD LAB BLOOD ORDERABLES Final Resul t [facility] [address] [place] [address], * Thyroid stimulating hormone (06/15/2025 6:30 AM EDT) Only the most recent of5 resultswithin the time period is included. TSH 2.10 0.40 - 4.00 mcIU/mL LAB CHEMISTRY METHOD 06/15/2025 8:23 PM EDT [facility] Blood Venous blood specimen / Unknown 06/15/2025 6:30 AM EDT 06/15/2025 7:20 AM EDT us Roby Roth MD LAB BLOOD ORDERABLES Final Resul t [facility] [address] [place] [address], [place] [phone] * (ABNORMAL) Basic metabolic panel (06/15/2025 6:30 AM EDT) Sodium 135 133 - 145 mmol/L LAB CHEMISTRY METHOD 06/15/2025 8:49 PM [facility] Potassium 3.9 3.5 - 5.5 mmol/L LAB CHEMISTRY METHOD 06/15/2025 8:49 PM [facility] Chloride 100 96 - 110 mmol/L LAB CHEMISTRY METHOD 06/15/2025 8:49 PM [facility] CO2 24 21 - 32 mmol/L LAB CHEMISTRY METHOD 06/15/2025 8:49 PM [facility] Anion Gap 11 3 - 11 LAB CHEMISTRY METHOD 06/15/2025 8:49 PM [facility] Glucose 302(H) 70 - 100 mg/dL LAB CHEMISTRY METHOD 06/15/2025 8:49 PM [facility] BUN 24 5 - 25 mg/dL LAB CHEMISTRY METHOD 06/15/2025 8:49 PM [facility] Creatinine 1.41(H) 0.50 - 1.10 mg/dL LAB CHEMISTRY METHOD 06/15/2025 8:49 PM [facility] eGFR 44(L) >=60 mL/min/1. 73m2 LAB CHEMISTRY METHOD 06/15/2025 8:49 PM [facility] Comment:Calculation based on the Chronic Kidney Disease Epidemiology Collaboration (CKD-EPI) equation refit without adjustment for race. BUN/Creatinine Ratio 17.0 LAB CHEMISTRY METHOD 06/15/2025 8:49 PM T [facility] Calcium 9.7 8.5 - 10.5 mg/dL LAB CHEMISTRY METHOD 06/15/2025 8:49 PM EDT [facility] Blood Venous blood specimen / Unknown 06/15/2025 6:30 AM EDT 06/15/2025 7:20 AM EDT us Roby Roth MD LAB BLOOD ORDERABLES Final Resul t [facility] [address] [place] [address], [place] [phone] * Lipid panel with reflex to direct LDL (06/10/2025 6:35 AM EDT) Only the most recent of2 resultswithin the time period is included. Cholesterol 174 0 - 200 mg/dL LAB CHEMISTRY METHOD 06/10/2025 8:30 AM [facility] Triglycerides 41 0 - 150 mg/dL LAB CHEMISTRY METHOD 06/10/2025 8:30 AM [facility] HDL 100 >=40 mg/dL LAB CHEMISTRY METHOD 06/10/2025 8:30 AM [facility] LDL Calculated 66 0 - 100 mg/dL LAB CHEMISTRY METHOD 06/10/2025 8:30 AM [facility] Comment:Estimated LDL Calcul ated using equation: Total cholesterol - HDL cholesterol - (Triglycerides/5) VLDL Cholesterol Oskar 8.2 mg/dL LAB CHEMISTRY METHOD 06/10/2025 8:30 AM [facility] Non HDL Chol. (LDL+VLDL) 74 <145 mg/dL LAB CHEMISTRY METHOD 06/10/2025 8:30 AM [facility] Chol/HDL Ratio 1.7 0.0 - 4.4 LAB CHEMISTRY METHOD 06/10/2025 8:30 AM [facility] Blood Venous blood specimen / Unknown 06/10/2025 6:35 AM EDT 06/10/2025 7:22 AM EDT us Roby Roth MD LAB BLOOD ORDERABLES Final Resul t Performing Organization Address [facility] Co de Phone Number [facility] [address] [place] [address], [place] [phone] * (ABNORMAL) Hemoglobin A1c (06/10/2025 6:35 AM EDT) Only the most recent of2 resultswithin the time period is included. Pathologist [facility] Hemoglobin A1C 9.3(H) <6.5 % LAB CHEMISTRY METHOD 06/10/2025 10:58 AM EDT [facility] Mean Bld Glu Estim. 220 mg/dL LAB CHEMISTRY METHOD 06/10/2025 10:58 AM EDT [facility] Blood Venous blood specimen / Unknown 06/10/2025 6:35 AM EDT 06/10/2025 7:22 AM EDT us Roby Roth MD LAB BLOOD ORDERABLES Final Resul t Performing Organization Address [facility] Co de Phone Number [facility] [address] [place] [address], [place] [phone] * (ABNORMAL) Comprehensive metabolic panel (06/10/2025 6:35 AM EDT) Only the most recent of2 resultswithin the time period is included. Pathologist [facility] Sodium 136 133 - 145 mmol/L LAB CHEMISTRY METHOD 06/10/2025 8:30 AM EDT [facility] Potassium 4.9 3.5 - 5.5 mmol/L LAB CHEMISTRY METHOD 06/10/2025 8:30 AM EDT [facility] Chloride 103 96 - 110 mmol/L LAB CHEMISTRY METHOD 06/10/2025 8:30 AM EDT [facility] CO2 26 21 - 32 mmol/L LAB CHEMISTRY METHOD 06/10/2025 8:30 AM [facility] Anion Gap 7 3 - 11 LAB CHEMISTRY METHOD 06/10/2025 8:30 AM [facility] Glucose 68(L) 70 - 100 mg/dL LAB CHEMISTRY METHOD 06/10/2025 8:30 AM [facility] BUN 37(H) 5 - 25 mg/dL LAB CHEMISTRY METHOD 06/10/2025 8:30 AM [facility] Creatinine 1.26(H) 0.50 - 1.10 mg/dL LAB CHEMISTRY METHOD 06/10/2025 8:30 AM [facility] eGFR 51(L) >=60 mL/min/1. 73m2 LAB CHEMISTRY METHOD 06/10/2025 8:30 AM [facility] Comment:Calculation based on the Chronic Kidney Disease Epidemiology Collaboration (CKD-EPI) equation refit without adjustment for race. BUN/Creatinine Ratio 29.4 LAB CHEMISTRY METHOD 06/10/2025 8:30 AM [facility] Calcium 10.2 8.5 - 10.5 mg/dL LAB CHEMISTRY METHOD 06/10/2025 8:30 AM [facility] AST (SGOT) 25 10 - 42 unit/L LAB CHEMISTRY METHOD 06/10/2025 8:30 AM [facility] ALT (SGPT) 32 10 - 60 unit/L LAB CHEMISTRY METHOD 06/10/2025 8:30 AM [facility] Alkaline Phosphatase 181(H) 42 - 121 unit/L LAB CHEMISTRY METHOD 06/10/2025 8:30 AM [facility] Total Protein 8.2(H) 6.0 - 8.0 g/dL LAB CHEMISTRY METHOD 06/10/2025 8:30 AM [facility] Albumin 3.9 3.2 - 5.0 g/dL LAB CHEMISTRY METHOD 06/10/2025 8:30 AM EDT [facility] Total Bilirubin 0.1 0.0 - 1.4 mg/dL LAB CHEMISTRY METHOD 06/10/2025 8:30 AM EDT [facility] Blood Venous blood specimen / Unknown 06/10/2025 6:35 AM EDT 06/10/2025 7:22 AM EDT us Roby Roth MD LAB BLOOD ORDERABLES Final Resul t [facility] [address] [place] [address], [place] [phone] from Last 3 Months Insurance MEDICAID - [place] Care Teams Pulling Unit Operator Relationship Specialty Start Date End Date Roby Roth MD [address] [place] [address] Dr [address] [place], [place] PCP - General Internal Medicine 09/11/24
[2025-07-20 14:19] LABS: Appearance Urine Clear; Glucose Urine UA >=1000 mg/dL (Negative); PH 5.5 (5.0-9.0); Specific Gravity - Urine 1.025 (1.005-1.025); UMIC TRIGGER UACC YES
[2025-07-20 14:29] LABS: Cannabinoid Screen Urine Not Detected (Not Detect)
--- NOTE | 2025-07-20 14:46 | PM.IMHP ---
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 Nursing facility reports no witnessed seizure, fall, trauma, fever, or chills. She was noted to have significantly elevated blood glucose earlier in the day and received insulin prior to transfer. No recent medication changes were reported. On arrival, the patient appeared catatonic and non-responsive to exam. She was unable to provide history. Initial ED workup showed hyperglycemia, mild ketonemia, hypernatremia, and normal anion gap with normal bicarbonate. CT head was unremarkable. No evidence of acute infection was reported from the facility. Review of Systems Review of Systems: Yes Unobtainable due to mental status PMFSH Medical History Avulsed tooth Seizure Adjustment reaction with mixed disturbance of emotions and conduct Anxiety Mood disorder Leiomyoma of body of uterus Preglaucoma Presbyopia UTI (urinary tract infection) Hypothermia Long QT syndrome Sepsis COVID-19 Cystitis Hyperkalemia ESBL (extended spectrum beta-lactamase) producing bacteria infection Essential (primary) hypertension Diabetic retinopathy Anxiety Mood disorder Dementia Subarachnoid hemorrhage following injury TBI (traumatic brain injury) Unspecified dementia with behavioral disturbance Seizure disorder Hypothyroid Hyperlipidemia Diabetes Family History Mother Breast cancer Surgical History Hx of tubal ligation Social History Household Members: Other Housing: Skilled Nursing Do you presently have visiting nurse or other home services: No Alcohol intake: never Patient Tobacco Use Status: Never used Tobacco Smoked in Last 30 Days: No Use of substances other than those prescribed or required for medical reasons: No Advance Directives: Yes Advance Directives on File: Yes Advance Directives Date on File: 03/23/21 Do you have a plan to hurt others: No Plan service: No Current occupational status: disabled Meds Allergies Allergy/AdvReac Type Severity Reaction Status Date / Time chlorpromazine Allergy Intermediate HIVES Verified 07/20/25 11:32 (CHLORPROMAZINE) Home Medications ?Medication ?Instructions ?Recorded ?Confirmed ?Last Taken ?Type acetaminophen 325 mg tablet 650 mg PO Q12H PRN Fever Or Pain 10/29/22 06/12/25 Unknown History atorvastatin 10 mg tablet 10 mg PO BEDTIME 10/29/22 06/12/25 Unknown History benztropine 1 mg tablet 1 mg PO BID 10/29/22 06/12/25 Unknown History calcium 600 mg (as 1 tab PO BID 10/29/22 06/12/25 Unknown History carbonate)-vitamin D3 10 mcg (400 unit) tablet (Calcium 600 + D(3)) cholecalciferol (vitamin D3) 1,250 1,250 mcg PO MO@0900 10/29/22 06/12/25 Unknown History mcg (50,000 unit) capsule docusate sodium 100 mg capsule 100 mg PO BID 10/29/22 06/12/25 Unknown History ferrous sulfate 324 mg (65 mg 324 mg PO DAILY 10/29/22 06/12/25 Unknown History iron) tablet,delayed release gabapentin 600 mg tablet 600 mg PO TID 10/29/22 06/12/25 Unknown History guaifenesin 100 mg/5 mL oral liquid 200 mg PO Q4H PRN Cough 10/29/22 06/12/25 Unknown History haloperidol 10 mg tablet 10 mg PO BID 10/29/22 06/12/25 Unknown History haloperidol 5 mg tablet 5 mg PO BID 10/29/22 06/12/25 Unknown History hydroxyzine HCl 25 mg tablet 25 mg PO BID 10/29/22 06/12/25 Unknown History ibuprofen 600 mg tablet 600 mg PO Q8H PRN Moderate Pain 10/29/22 06/12/25 Unknown History (Scale Score 5-6) insulin aspart U-100 100 unit/mL 1 sliding scale dose subcut 10/29/22 06/12/25 Unknown History subcutaneous solution (Novolog USEASDIRECTD U-100 Insulin aspart) levetiracetam 1,000 mg tablet 1,000 mg PO BID 10/29/22 06/12/25 Unknown History metformin 1,000 mg tablet 1,000 mg PO BID 10/29/22 06/12/25 Unknown History oxcarbazepine 150 mg tablet 150 mg PO DAILY 10/29/22 06/12/25 Unknown History (Trileptal) oxcarbazepine 300 mg tablet 300 mg PO BEDTIME 10/29/22 06/12/25 Unknown History (Trileptal) sennosides 8.6 mg tablet (senna) 8.6 mg PO DAILY PRN Constipation 10/29/22 06/12/25 Unknown History sodium phosphates 19 gram-7 118 ml NC DAILY PRN Constipation, 10/29/22 06/12/25 Unknown History gram/118 mL enema (Fleet Enema) if bisacodyl ineffective cranberry fruit 450 mg tablet 450 mg PO DAILY 08/22/23 06/12/25 Unknown History (cranberry) insulin glargine 100 unit/mL (3 12 unit subcut BEDTIME 08/22/23 06/12/25 Unknown History mL) subcutaneous pen (Lantus Solostar U-100 Insulin) phenytoin 50 mg chewable tablet 100 mg PO DAILY 08/22/23 06/12/25 Unknown History ascorbic acid (vitamin C) 500 mg 500 mg PO DAILY 06/12/25 06/12/25 Unknown History tablet benztropine 0.5 mg tablet 0.5 mg PO BID 06/12/25 06/12/25 Unknown History empagliflozin 25 mg tablet 25 mg PO DAILY 06/12/25 06/12/25 Unknown History (Jardiance) glucagon HCl 1 mg solution for 1 mg subcut Q15M PRN target blood 06/12/25 06/12/25 Unknown History injection sugar attained levothyroxine 75 mcg tablet 75 mcg PO DAILY@0600 06/12/25 06/12/25 Unknown History multivitamin 1 tab PO DAILY 06/12/25 06/12/25 Unknown History naloxone 4 mg/actuation nasal 4 mg intranasal Q3M PRN suspected 06/12/25 06/12/25 Unknown History spray (Narcan) opioid overdose oxycodone-acetaminophen 5 mg-325 1 tab PO Q6H PRN moderate knee pain 06/12/25 06/12/25 Unknown History mg tablet (Percocet) phenytoin 50 mg chewable tablet 150 mg PO BEDTIME 06/12/25 06/12/25 Unknown History sennosides 8.6 mg tablet 8.6 mg PO BID 06/12/25 06/12/25 Unknown History tramadol 50 mg tablet 50 mg PO TID 06/12/25 06/12/25 Unknown History Physical Exam Vital Signs and Narrative: Vital Signs: Last Vital Signs Temp 98.4 F 07/20/25 13:50 Pulse 114 H 07/20/25 13:50 Resp 20 07/20/25 13:50 BP 152/78 H 07/20/25 13:50 Pulse Ox 96 07/20/25 13:50 O2 Del Method Room Air 07/20/25 13:50 BMI result Body Mass Index 27.1 Const: Other: Constitutional : not interactive, not in distress Cardiovascular : no JVP, no lower extremity edema Respiratory : bilateral chest movement, not in resp distress Gastrointestinal: soft, lax, Non tender Skin : Warm, Dry Neurological : Alert , non verbal, not following commands, not tracking , No focal weakness Results Labs 07/20/25 12:29 07/20/25 12:29 Labs: Laboratory Results - last 24 hr 07/20/25 07/20/25 07/20/25 12:29 12:36 14:06 MCV 86.6 MCH 28.1 MCHC 32.5 RDW 13.8 Plt Count 198 MPV 9.6 Immature Gran % (Auto) 0.5 H Neut % (Auto) 77.6 H Lymph % (Auto) 10.1 L [place] % (Auto) 11.7 H Eos % (Auto) 0.0 Baso % (Auto) 0.1 Lymph # (Auto) 1.1 L [place] # (Auto) 1.3 H Eos # (Auto) 0.0 Baso # (Auto) 0.0 Abs Immat Gran (auto) 0.05 H Absolute Neuts (auto) 8.5 H Absolute Nucleated RBC 0.000 Nucleated RBC % (auto) 0.0 PT 12.7 INR 1.0 VBG pH 7.33 VBG pCO2 52 VBG pO2 78 VBG HCO3 27 H VBG O2 Saturation 89.0 VBG Base Excess 1.3 Anion Gap 16 Estim Creat Clear Calc 34.8 Estimated GFR 25 Random Glucose 258 H Lactic Acid 1.9 Calcium 10.4 H Magnesium 2.6 Total Bilirubin 0.1 Direct Bilirubin < 0.2 AST 43 H ALT 80 H Alkaline Phosphatase 186 H Ammonia 17 Troponin I High Sens 17.9 H D Total Protein 8.8 H Albumin 4.9 Lipase 31 Beta-Hydroxybutyrate 2.48 H Urine Color Yellow Urine Appearance Clear Urine pH 5.5 Ur Specific [place] 1.025 Urine Protein 30 (1+) H Urine Glucose (UA) >=1000 H Urine Ketones 40 Urine Blood Negative Urine Nitrite Negative Ur Leukocyte Esterase Negative Urine RBC 0-2 Urine WBC 0-5 Ur Squamous Epith Cells 0-2 Urine Bacteria None Seen Hyaline Casts 3-5 Urine Yeast Present Urine Opiates Screen Not Detected Ur Buprenorphine Scrn Not Detected Ur Oxycodone Screen Not Detected Urine Methadone Screen Not Detected Urine Fentanyl Screen Not Detected Ur Barbiturates Screen Not Detected Phenytoin 7.8 L* Ur Phencyclidine Scrn Not Detected Ur Amphetamines Screen Not Detected U Benzodiazepines Scrn POSITIVE H Urine Cocaine Screen Not Detected U Marijuana (THC) Screen Not Detected Imaging Radiologist's Impressions: Impressions Chest X-Ray 07/20/25 12:40 IMPRESSION: No acute disease. Electronically signed by: Marcelino Ray MD 07/20/2025 12:49 PM EST RP Head CT 07/20/25 12:54 IMPRESSION: No acute intracranial hemorrhage or acute brain abnormality by CT. Electronically signed by: Luiz Espinoza MD 07/20/2025 01:11 PM EST RP Assessment and Plan (1) MARIBEL (acute kidney injury): Status: Resolved (2) Epilepsy: Status: Inactive (3) Acute metabolic encephalopathy: Status: Acute (4) Acute hypernatremia: Status: Acute Plan Metabolic encaphalopathy, acute Could be 2/2 HYpernatremia, MARIBEL, seizures No clear underlying infection Correct electrolytes and MARIBEL r\o ongoing seizures aspiration risk Keep NPO and check UR COORDINATOR Hx of seizure Low PHenytoin level Keppra level pending She could have ongoing seizures causing her AMS will add EEG MARIBEL on CKD3 BUN:Cr > 20 , likely prerenal Give IVF and monitor U\O and BMP Acute Hypernatremia likely from decrease oral intake Start D5NS and monitor response follow BMP T2DM hold jardiance and metformin SSI resume lantus when taking more PO or glucose persistently elevated HLD statin mood benztropine,haldol, hydroxyzine hypothyroid levothyroxine PENDING MED REC DVT PPx: Heparin Code status: Full code The patient will need 2 overnight hospital stay for evaluation of AMS and treamtent of MARIBEL and Hypernatremia Quality Stroke Does the patient have a stroke diagnosis?: No VTE Prior VTE?: No VTE Risk Level:: Medical - moderate - high VTE Device Contraindication: Treatment Not Indicated VTE Drug Contraindication: N/A - Med Ordered
[2025-07-20 14:54] LABS: Resp Syncy Virus RNA Qual PCR NEGATIVE (Negative); SARS COV2 PCR INHOUSE NEGATIVE (Negative)
[2025-07-20 15:08] LABS: Troponin-I High Sensitivity 28.8 ng/L (<3.5-17.0)
--- NOTE | 2025-07-20 17:47 | HO.NURTONUR ---
Addendum entered by Audelia Jacobs RN 07/20/25 17:49: Phenytoin level was low. 7.8. Given phenytoin. Pt is NPO. Had EEG in ED. ST on monitor. Pure whick in place. Original Note: Pt from [facility] with Hx of TBI. Here for AMS and high BS. (over 400 at [facility]). Glucose has been fine. Pt has been non-verbal, responds to physical stimuli, moves all extremities. Per Dr Roth patient is alert, ambulatory and can hold a conversation at baseline.
--- NOTE | 2025-07-20 17:55 | PHA.MEDREC ---
Pharmacy Consult ? Medication Reconciliation Pharmacy has completed the medication reconciliation, USING MED LIST FROM [facility].
--- NOTE | 2025-07-20 17:57 | PC.NURSE ---
When attempting to place pure whick pt grabbed RN s hand and said What the @#$% . Then sat up. Still isn't answering questions but is more reactive.
[2025-07-20 18:09] VITALS: BP 145/70; PULSE 109; RESP 16; TEMP 36.6; O2SAT 96
[2025-07-20 18:37] VITALS: BP 154/77; PULSE 108; RESP 12; O2SAT 97
[2025-07-20 19:41] VITALS: BP 151/64; PULSE 102; RESP 15; TEMP 36.1; O2SAT 97
--- NOTE | 2025-07-20 19:52 | PC.NURSE ---
this rn assumed care of pt, pt awake and alert but not responding to questions at this time, respirations even and unlabored, vss.
--- NOTE | 2025-07-20 20:30 | PC.NURSE ---
attempted to place pt on hospital bed at this time, pt unable to follow directions at this time and unable to stand. camera remains in place for safety
[2025-07-20] MEDS: levETIRAcetam in NaCl (iso-os) 500 MG/100 ML PIGGYBACK 400 MG IV (20:45)
[2025-07-20 21:39] LABS: Anion Gap 29 (12-20); Blood Urea Nitrogen 57 mg/dL (9-16); Calcium 9.7 mg/dL (8.4-10.2); Carbon Dioxide 15 mmol/L (22-29); Chloride 111 mmol/L (96-108); Creatinine Clr Calc Pharmacy 37.7; Estimated Glomerular Filt Rate 28; Sodium 149 mmol/L (135-145)
[2025-07-20 23:06] VITALS: BMI 25.9
[2025-07-21] VITALS (7 sets, daily range): BP systolic 135–176; BP diastolic 67–90; PULSE 90–119; RESP 16–18; TEMP 36.3–37.3; O2SAT 96–100
[2025-07-21 00:16] LABS: Anion Gap 25 (12-20); Blood Urea Nitrogen 57 mg/dL (9-16); Calcium 9.8 mg/dL (8.4-10.2); Carbon Dioxide 17 mmol/L (22-29); Chloride 111 mmol/L (96-108); Creatinine Clr Calc Pharmacy 37.5; Estimated Glomerular Filt Rate 28; Potassium 5.2 mmol/L (3.3-5.1); Sodium 148 mmol/L (135-145)
[2025-07-21 03:59] LABS: Glucose, Whole Blood 399 mg/dL (60-115)
--- NOTE | 2025-07-21 07:27 | PC.NURSE ---
This pt did not urinate since she came to [facility]. This RN bladder scanned the pt, and it showed 850mL. Dr. Joe notified, and ordered straight cath. After the catheter was inserted, 800mL of urine was removed. Urine culture was sent. Next due to void is 12:30pm.
[2025-07-21 07:42] LABS: Glucose, Whole Blood 359 mg/dL (60-115)
[2025-07-21 07:53] LABS: Alanine Aminotransferase 67 U/L (0-31); Albumin Level 4.6 g/dL (3.5-5.0); Alkaline Phosphatase 182 U/L (39-117); Anion Gap 24 (12-20); Aspartate Amino Transferase 39 U/L (5-31); Blood Urea Nitrogen 58 mg/dL (9-16); Calcium 10.2 mg/dL (8.4-10.2); Carbon Dioxide 19 mmol/L (22-29); Chloride 114 mmol/L (96-108); Creatinine Clr Calc Pharmacy 36.0; Estimated Glomerular Filt Rate 27; Potassium 4.6 mmol/L (3.3-5.1); Sodium 152 mmol/L (135-145); Total Protein 8.4 g/dL (6.5-8.0)
[2025-07-21 08:16] LABS: Appearance Urine Clear; Glucose Urine UA >=1000 mg/dL (Negative); PH 5.5 (5.0-9.0); Specific Gravity - Urine 1.025 (1.005-1.025); UMIC TRIGGER UACC YES
[2025-07-21 08:49] LABS: Hematocrit 33.7 % (37.0-47.0); Hemoglobin 10.6 g/dl (12.0-16.0); Imm Gran Abs Auto 0.04 X10*3/uL (0.00-0.03); Imm Gran Pct Auto 0.4 % (0.0-0.4); Lymphocytes Absolute Auto 1.0 X10*3/uL (1.2-4.9); Mean Corpuscular HGB Conc 31.5 g/dl (31.0-35.0); Mean Corpuscular Hemoglobin 27.7 pg (27.0-33.0); Mean Corpuscular Volume 88.2 fL (80.0-98.0); NRBC Abs Auto 0.000 X10*3/uL (0.0-0.012); NRBC Pct Auto 0.0 /100WBC (0.0-0.2); Platelet Count 142 X10*3/uL (160-400); Red Blood Count 3.82 X10*6/uL (4.20-5.50); White Blood Count 9.6 X10*3/uL (4.8-10.8)
[2025-07-21 08:50] LABS: MANUAL DIFF FLAG NO
--- NOTE | 2025-07-21 08:51 | MHC.CM.PN ---
Patient is from [facility] @ [facility] and the goal is to return there at dc. CM has initiated and will follow for dc planning. HCP is on file; Guadalupe is the Agent.
[2025-07-21] MEDS: levETIRAcetam in NaCl (iso-os) 500 MG/100 ML PIGGYBACK 400 MG IV ×2 (09:50→22:34)
--- NOTE | 2025-07-21 10:35 | PM.NEUROCN ---
History of Present Illness Data of Consult Service Date: 07/21/25 Primary Care Provider: Roby Roth, DO HPI This is a 54-year-old female patient with a past medical history of TBI, dementia, seizure disorder (on Dilantin and Keppra) with prior episodes of Dilantin toxicity, SAH, anxiety/mood disorder, DM, HTN, HLD, hypothyroidism, and recurrent UTIs who resides at [facility] nursing facility. She was brought to the emergency department on 07/20/2025 for an acute mental status change advisor the course of 24 hours. There was no witnessed seizure, fall, trauma, fever, or chills. She did have significantly elevated blood glucose earlier in the day and had received insulin prior to her transfer to the hospital. Patient arrived to the emergency room catatonic and was not responsive to exam. She was hyperglycemic and had mild ketonemia, hypernatremia with a normal anion gap and normal bicarbonate level. CT of the head was unremarkable. Phenytoin level was low at 7.8 and her Keppra level is still pending. An EEG was ordered to rule out status epilepticus/recurrent seizures for cause of altered mental status. She was recently seen on 06/13/[address] Parada after being admitted to the hospital with fall versus seizure event. 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 EEG was recommended. No antiepileptic medication changes were made at that time. She is currently taking levetiracetam 1000 mg twice daily and phenytoin 100 mg daily and 150 mg at bedtime. In addition, she also takes gabapentin 600 mg 3 times daily. Upon exam, she remains unresponsive with GCS score of 7 with notable retraction to pain and purposeful closure of eyes when attempt made to open her eyes. Blood glucose remains elevated but D5W in place likely to correct elevated sodium level. She is receiving leveteracetam and phenytoin dosing via IV Bedside EEG is still pending Review of Systems Constitutional: Constitutional: Reports as per HPI Eyes: Eyes: Reports as per HPI Cardiovascular: Cardiovascular: Reports as per HPI Respiratory: Respiratory: Reports as per HPI Gastrointestinal: Gastrointestinal: Reports as per HPI Musculoskeletal: Musculoskeletal: Reports as per HPI Integumentary/Breasts: Skin/Breast: Reports system reviewed and no additional complaints, except as docu Neurologic: Reports as per HPI Psychiatric: Psychiatric: Reports as per HPI Endocrine: Endocrine: Reports as per HPI [facility] Past Medical History Medical History Avulsed tooth Seizure Adjustment reaction with mixed disturbance of emotions and conduct Anxiety Mood disorder Leiomyoma of body of uterus Preglaucoma Presbyopia UTI (urinary tract infection) Hypothermia Long QT syndrome Sepsis COVID-19 Cystitis Hyperkalemia ESBL (extended spectrum beta-lactamase) producing bacteria infection Essential (primary) hypertension Diabetic retinopathy Anxiety Mood disorder Dementia Subarachnoid hemorrhage following injury TBI (traumatic brain injury) Unspecified dementia with behavioral disturbance Seizure disorder Hypothyroid Hyperlipidemia Diabetes Family History Family History Mother Breast cancer Surgical History Surgical History Hx of tubal ligation Social History Social History Household Members: Other Household Members [facility]:: [facility] Housing: [facility] Do you presently have visiting nurse or other home services: No Alcohol intake: never Patient Tobacco Use Status: Never used Tobacco Advance Directives Date on File: 03/23/21 service: No Current occupational status: disabled Meds Allergies Allergy/AdvReac Type Severity Reaction Status Date / Time chlorpromazine Allergy Intermediate HIVES Verified 07/20/25 11:32 (CHLORPROMAZINE) Active Medications: Current Medications Acetaminophen (Acetaminophen 325 Mg Tablet) 650 mg PO Q6H PRN PRN Reason: Pain, Mild 1-3,fever,headache Dextrose (Dextrose 50 % 25 Gm/50 Ml Syringe) 25 gm IVPUSH Q15M PRN; Protocol PRN Reason: per Hypoglycemia Standing Ord. Glucose (Glucose Gel 15 Gm Gel..Gram.) 15 gm PO Q15M PRN; Protocol PRN Reason: per Hypoglycemia Standing Ord. Heparin Sodium (Porcine) (Heparin Sodium,Porcine 5,000 Unit/Ml Vial) 5,000 unit SUBCUT Q12H TOM Last Admin: 07/21/25 02:51 Dose: 5,000 unit Levetiracetam (Keppra) 500 mg in 100 mls @ 400 mls/hr IV Q12H TOM Last Admin: 07/21/25 09:50 Dose: 400 mls/hr Dextrose (D5w) 1,000 mls @ 80 mls/hr IVCONT .[id number] [facility] Last Admin: 07/21/25 09:44 Dose: 80 mls/hr Insulin Human Lispro (Insulin Lispro 100 Unit/Ml 3 Ml Vial) 0 unit SUBCUT QIDACHS [facility]; Protocol Last Admin: 07/21/25 09:41 Dose: 10 unit Ondansetron HCl (Ondansetron Hcl 4 Mg/2 Ml Vial) 4 mg IVPUSH Q8H PRN PRN Reason: Nausea and Vomiting Home Medications ?Medication ?Instructions ?Recorded ?Confirmed ?Last Taken ?Type acetaminophen 325 mg tablet 650 mg PO Q12H PRN Fever Or Pain 10/29/22 07/20/25 Unknown History atorvastatin 10 mg tablet 10 mg PO BEDTIME 10/29/22 07/20/25 Unknown History benztropine 1 mg tablet 1 mg PO BID 10/29/22 07/20/25 Unknown History calcium 600 mg (as 1 tab PO BID 10/29/22 07/20/25 Unknown History carbonate)-vitamin D3 10 mcg (400 unit) tablet (Calcium 600 + D(3)) cholecalciferol (vitamin D3) 1,250 1,250 mcg PO MO@0900 10/29/22 07/20/25 Unknown History mcg (50,000 unit) capsule docusate sodium 100 mg capsule 100 mg PO BID 10/29/22 07/20/25 Unknown History gabapentin 600 mg tablet 600 mg PO TID 10/29/22 07/20/25 Unknown History guaifenesin 100 mg/5 mL oral liquid 200 mg PO Q4H PRN Cough 10/29/22 07/20/25 Unknown History haloperidol 10 mg tablet 10 mg PO BID 10/29/22 07/20/25 Unknown History haloperidol 5 mg tablet 5 mg PO BID 10/29/22 07/20/25 Unknown History hydroxyzine HCl 25 mg tablet 25 mg PO BID 10/29/22 07/20/25 Unknown History ibuprofen 600 mg tablet 600 mg PO Q8H PRN Moderate Pain 10/29/22 07/20/25 Unknown History (Scale Score 5-6) insulin aspart U-100 100 unit/mL 1 sliding scale dose subcut TIDAC 10/29/22 07/20/25 Unknown History subcutaneous solution (Novolog U-100 Insulin aspart) levetiracetam 1,000 mg tablet 1,000 mg PO BID 10/29/22 07/20/25 Unknown History metformin 1,000 mg tablet 1,000 mg PO BID 10/29/22 07/20/25 Unknown History oxcarbazepine 150 mg tablet 150 mg PO DAILY 10/29/22 07/20/25 Unknown History (Trileptal) oxcarbazepine 300 mg tablet 300 mg PO BEDTIME 10/29/22 07/20/25 Unknown History (Trileptal) sennosides 8.6 mg tablet (senna) 8.6 mg PO DAILY PRN Constipation 10/29/22 07/20/25 Unknown History sodium phosphates 19 gram-7 118 ml [place] DAILY PRN Constipation, 10/29/22 07/20/25 Unknown History gram/118 mL enema (Fleet Enema) if bisacodyl ineffective cranberry fruit 450 mg tablet 450 mg PO DAILY 08/22/23 07/20/25 Unknown History (cranberry) insulin glargine 100 unit/mL (3 12 unit subcut BEDTIME 08/22/23 07/20/25 Unknown History mL) subcutaneous pen (Lantus Solostar U-100 Insulin) phenytoin 50 mg chewable tablet 100 mg PO DAILY 08/22/23 07/20/25 Unknown History ascorbic acid (vitamin C) 500 mg 500 mg PO DAILY 06/12/25 07/20/25 Unknown History tablet benztropine 0.5 mg tablet 0.5 mg PO BID 06/12/25 07/20/25 Unknown History empagliflozin 25 mg tablet 25 mg PO DAILY 06/12/25 07/20/25 Unknown History (Jardiance) glucagon HCl 1 mg solution for 1 mg subcut Q15M PRN target blood 06/12/25 07/20/25 Unknown History injection sugar attained levothyroxine 75 mcg tablet 75 mcg PO DAILY@0600 06/12/25 07/20/25 Unknown History multivitamin 1 tab PO DAILY 06/12/25 07/20/25 Unknown History naloxone 4 mg/actuation nasal 4 mg intranasal Q3M PRN suspected 06/12/25 07/20/25 Unknown History spray (Narcan) opioid overdose oxycodone-acetaminophen 5 mg-325 1 tab PO Q6H PRN moderate knee pain 06/12/25 07/20/25 Unknown History mg tablet (Percocet) phenytoin 50 mg chewable tablet 150 mg PO BEDTIME 06/12/25 07/20/25 Unknown History sennosides 8.6 mg tablet 8.6 mg PO BID 06/12/25 07/20/25 Unknown History tramadol 50 mg tablet 50 mg PO TID 06/12/25 07/20/25 Unknown History ferrous sulfate 325 mg (65 mg 325 mg PO DAILY 07/20/25 07/20/25 Unknown History iron) tablet Physical Exam Exam: Exam: GCS score:7 Vital Signs: Vital Signs: Last Vital Signs Temp 97.3 F 07/21/25 07:25 Pulse 119 H 07/21/25 07:25 Resp 18 07/21/25 07:25 BP 148/67 H 07/21/25 07:25 Pulse Ox 100 07/21/25 07:25 O2 Del Method Room Air 07/21/25 07:25 BMI result Body Mass Index 25.9 Const: General: patient obtunded Orientation/consciousness: patient obtunded Neuro: General: patient obtunded and Unable to assess gait Cranial nerves: Yes Other cranial nerve findings present (Unable to open eyes) Cognition (Neuro): abnormal cognition (GCS score:7) Gait exam (Neuro): Unable to assess gait Motor exam (neuro): Abnormal muscle tone present (BUE rigidity ) Deep tendon reflexes (DTR's): Right triceps reflex intensity grade: 1+, Left triceps reflex intensity grade: 1+, Rt Biceps (C5, C6): 1+, Left biceps reflex intensity grade: 1+, Right brachioradialis reflex intensity grade: 1+, Left brachioradialis reflex intensity grade: 1+, Right patellar reflex intensity grade: 1+, Left patellar reflex intensity grade: 1+, Right ankle reflex intensity grade: 0 and Left ankle reflex intensity grade: 0 Plantar Reflex Responses: equivocal: bilateral Results Labs 07/21/25 08:39 07/21/25 07:04 Labs: Short CBC 07/20/25 07/21/25 Range/Units 12:29 08:39 WBC 11.0 H 9.6 (4.8-10.8) X10*3/uL Hgb 11.3 L 10.6 L (12.0-16.0) g/dl Hct 34.8 L 33.7 L (37.0-47.0) % Plt Count 198 142 L D (160-400) X10*3/uL BMP 07/20/25 07/20/25 07/20/25 12:29 20:48 23:25 Sodium 150 H 149 H 148 H Potassium 4.0 6.4 H* D 5.2 H Chloride 110 H 111 H 111 H Carbon Dioxide 28 15 L 17 L BUN 58 H 57 H 57 H Creatinine 2.04 H 1.88 H 1.85 H Calcium 10.4 H 9.7 D 9.8 07/21/25 07:04 Sodium 152 H Potassium 4.6 Chloride 114 H Carbon Dioxide 19 L BUN 58 H Creatinine 1.93 H Calcium 10.2 Liver Function 07/20/25 07/21/25 Range/Units 12:29 07:04 Total Bilirubin 0.1 0.1 (0.0-1.0) mg/dL Direct Bilirubin < 0.2 (0.0-0.5) mg/dL AST 43 H 39 H (5-31) U/L ALT 80 H 67 H (0-31) U/L Alkaline Phosphatase 186 H 182 H (39-117) U/L Albumin 4.9 4.6 (3.5-5.0) g/dL Urine 07/20/25 07/21/25 Range/Units 14:06 06:38 Urine Color Yellow Yellow Urine Appearance Clear Clear Urine pH 5.5 5.5 (5.0-9.0) Ur Specific [place] 1.025 1.025 (1.005-1.025) Urine Protein 30 (1+) H 30 (1+) H (Neg-Trace) mg/dL Urine Glucose (UA) >=1000 H >=1000 H (Negative) mg/dL Assessment and Plan (1) Altered mental status: Status: Acute Plan This is a 54-year-old female patient with a past medical history of TBI, dementia, seizure disorder (on Dilantin and Keppra) with prior episodes of Dilantin toxicity, SAH, anxiety/mood disorder, DM, HTN, HLD, hypothyroidism, and recurrent UTIs who resides at [facility] facility. She has a change in her mental status and without other obvious causes for her mental status change, it is possible that seizure/subclinical seizures could be playing a role. If her EEG shows seizure activity, I would advise to increase her levetiracetam and avoid increasing the Dilantin due to her history of Dilantin toxicity. If her EEG is normal, I would advise to explore any other possible metabolic or infections processes, behavioral causes, and could consider MRI of the brain r/o CVA or other encephalopathy. Procedures Date of Service Date of Service: 07/21/25
--- NOTE | 2025-07-21 10:43 | MHC.SLORD ---
Speech Language Pathology Order Status: Pt remains catatonic, CURTAIN FITTER contacted [facility] for baseline diet info, RN at [facility] reported pt is on carbohydrate diet, with regular solids and thin liquids, noting pt typically has a good appetite and usually eats as much as 3 pancakes (no syrup), 2 sausages and several pieces of poole for breakfast. CURTAIN FITTER to assess when pt is responsive, RN and CLINICAL AIDE consulted, MD notified of status.
[2025-07-21 11:04] LABS: Glucose, Whole Blood 302 mg/dL (60-115)
[2025-07-21 11:35] LABS: Potassium 6.4 mmol/L (3.3-5.1)
--- NOTE | 2025-07-21 12:48 | P.CONNP_ITS ---
History of Present Illness Reason for Consult Consult date: 07/21/25 Chief Complaint Chief complaint: altered mentation History of Present Illness Narrative: 54-year-old lady with PMH of TBI, dementia, seizure disorder, SAH, anxiety, mood disorder, diabetes, hypertension, hyperlipidemia, hypothyroid and history of ESBL UTI is transferred from a half-way due to altered sensorium. Patient remains significantly altered, more so like us psychiatric illness where she is sitting up in the bed but not answering questions. Her oral intake has been extremely poor. Labs concerning for hypernatremia, MARIBEL and high anion gap metabolic acidosis. Her blood sugars are in 300s and 400s. Her baseline creatinine is around 1.22, increased to 2.04 upon presentation currently at 1.93. Review of Systems Review of Systems Unable to obtain due to mental status PMFSH Past Medical History Medical History Avulsed tooth Seizure Adjustment reaction with mixed disturbance of emotions and conduct Anxiety Mood disorder Leiomyoma of body of uterus Preglaucoma Presbyopia UTI (urinary tract infection) Hypothermia Long QT syndrome Sepsis COVID-19 Cystitis Hyperkalemia ESBL (extended spectrum beta-lactamase) producing bacteria infection Essential (primary) hypertension Diabetic retinopathy Anxiety Mood disorder Dementia Subarachnoid hemorrhage following injury TBI (traumatic brain injury) Unspecified dementia with behavioral disturbance Seizure disorder Hypothyroid Hyperlipidemia Diabetes Family History Family History Mother Breast cancer Surgical History Surgical History Hx of tubal ligation Social History Social History Household Members: Other Household Members Other:: [facility] Housing: [facility] Do you presently have visiting nurse or other home services: No Alcohol intake: never Patient Tobacco Use Status: Never used Tobacco Advance Directives Date on File: 03/23/21 service: No Current occupational status: disabled Meds Allergies Allergy/AdvReac Type Severity Reaction Status Date / Time chlorpromazine Allergy Intermediate HIVES Verified 07/20/25 11:32 (CHLORPROMAZINE) Active Medications: Current Medications Acetaminophen (Acetaminophen 325 Mg Tablet) 650 mg PO Q6H PRN PRN Reason: Pain, Mild 1-3,fever,headache Dextrose (Dextrose 50 % 25 Gm/50 Ml Syringe) 25 gm IVPUSH Q15M PRN; Protocol PRN Reason: per Hypoglycemia Standing Ord. Glucose (Glucose Gel 15 Gm Gel..Gram.) 15 gm PO Q15M PRN; Protocol PRN Reason: per Hypoglycemia Standing Ord. Heparin Sodium (Porcine) (Heparin Sodium,Porcine 5,000 Unit/Ml Vial) 5,000 unit SUBCUT Q12H [facility] Last Admin: 07/21/25 02:51 Dose: 5,000 unit Levetiracetam (Keppra) 500 mg in 100 mls @ 400 mls/hr IV Q12H [facility] Last Infusion: 07/21/25 10:46 Dose: Infused Dextrose (D5w) 1,000 mls @ 80 mls/hr IVCONT .[id number] [facility] Last Admin: 07/21/25 09:44 Dose: 80 mls/hr Insulin Glargine (Insulin Glargine,Hum.Rec.Anlog 100 Unit/Ml 10 Ml Vial) 10 unit SUBCUT BEDTIME [facility] Insulin Human Lispro (Insulin Lispro 100 Unit/Ml 3 Ml Vial) 0 unit SUBCUT QIDACHS [facility]; Protocol Last Admin: 07/21/25 12:06 Dose: 8 unit Ondansetron HCl (Ondansetron Hcl 4 Mg/2 Ml Vial) 4 mg IVPUSH Q8H PRN PRN Reason: Nausea and Vomiting Home Medications ?Medication ?Instructions ?Recorded ?Confirmed ?Last Taken ?Type acetaminophen 325 mg tablet 650 mg PO Q12H PRN Fever O r Pain 10/29/22 07/20/25 Unknown History atorvastatin 10 mg tablet 10 mg PO BEDTIME 10/29/22 Unknown History benztropine 1 mg tablet 1 mg PO BID 10/29/22 5 Unknown History calcium 600 mg (as 1 tab PO BID 10/29/22 Unknown History carbonate)-vitamin D3 10 mcg (400 unit) tablet (Calcium 600 + D(3)) cholecalciferol (vitamin D3) 1,250 1,250 mcg PO MO@090 0 10/29/22 07/20/25 Unknown History mcg (50,000 unit) capsule docusate sodium 100 mg capsule 100 mg PO BID 10/29/22 07/20/25 Unknown History gabapentin 600 mg tablet 600 mg PO TID 10/29/2207/20 Unknown History guaifenesin 100 mg/5 mL oral liquid 200 mg PO Q4H PRN Cough 10/29/22 07/20/25 Unknown History haloperidol 10 mg tablet 10 mg PO BID 10/29/22 Unknown History haloperidol 5 mg tablet 5 mg PO BID 10/29/22 5 Unknown History hydroxyzine HCl 25 mg tablet 25 mg PO BID 10/29/2210/13 Unknown History ibuprofen 600 mg tablet 600 mg PO Q8H PRN Moderate P ain 10/29/22 07/20/25 Unknown History (Scale Score 5-6) insulin aspart U-100 100 unit/mL 1 sliding scale dose subcut TIDAC 10/29/22 07/20/25 Unknown History subcutaneous solution (Novolog U-100 Insulin aspart) levetiracetam 1,000 mg tablet 1,000 mg PO BID 10/29/22 07/20/25 Unknown History metformin 1,000 mg tablet 1,000 mg PO BID 10/29/2210/13 Unknown History oxcarbazepine 150 mg tablet 150 mg PO DAILY 10/29/22 1 09/20/24 Unknown History (Trileptal) oxcarbazepine 300 mg tablet 300 mg PO BEDTIME 10/29/22 07/20/25 Unknown History (Trileptal) sennosides 8.6 mg tablet (senna) 8.6 mg PO DAILY PRN C onstipation 10/29/22 07/20/25 Unknown History sodium phosphates 19 gram-7 118 ml [place] DAILY PRN Consti pation, 10/29/22 07/20/25 Unknown History gram/118 mL enema (Fleet Enema) if bisacodyl ineffecti ve cranberry fruit 450 mg tablet 450 mg PO DAILY 08/22/23 07/20/25 Unknown History (cranberry) insulin glargine 100 unit/mL (3 12 unit subcut BEDTIME 08/22/23 07/20/25 Unknown History mL) subcutaneous pen (Lantus Solostar U-100 Insulin) phenytoin 50 mg chewable tablet 100 mg PO DAILY 07/20/25 Unknown History ascorbic acid (vitamin C) 500 mg 500 mg PO DAILY 06/1207/20/25 Unknown History tablet benztropine 0.5 mg tablet 0.5 mg PO BID 06/12/2507/20 Unknown History empagliflozin 25 mg tablet 25 mg PO DAILY 06/12/2510/13 Unknown History (Jardiance) glucagon HCl 1 mg solution for 1 mg subcut Q15M PRN ta rget blood 06/12/25 07/20/25 Unknown History injection sugar attained levothyroxine 75 mcg tablet 75 mcg PO DAILY@0600 06/1207/20/25 Unknown History multivitamin 1 tab PO DAILY 06/12/2510/13 Unknown History naloxone 4 mg/actuation nasal 4 mg intranasal Q3M PRN suspected 06/12/25 07/20/25 Unknown History spray (Narcan) opioid overdose oxycodone-acetaminophen 5 mg-325 1 tab PO Q6H PRN mode rate knee pain 06/12/25 07/20/25 Unknown History mg tablet (Percocet) phenytoin 50 mg chewable tablet 150 mg PO BEDTIME 05/2007/20/25 Unknown History sennosides 8.6 mg tablet 8.6 mg PO BID 06/12/2507/20 Unknown History tramadol 50 mg tablet 50 mg PO TID 06/12/25 Unknown History ferrous sulfate 325 mg (65 mg 325 mg PO DAILY 07/20/25 07/20/25 Unknown History iron) tablet Physical Exam Vital Signs: Last Vital Signs Temp 98.5 F 07/21/25 11:29 Pulse 109 H 07/21/25 11:29 Resp 18 07/21/25 11:29 BP 148/70 H 07/21/25 11:29 Pulse Ox 100 07/21/25 11:29 O2 Del Method Room Air 07/21/25 11:29 BMI result Body Mass Index 25.9 General: not in any acute distress, ill appearing Nutritional Appearance: Okay nourished and normal weight Eyes: appearance normal, both eyes and all related structures; Alignment and Position: alignment normal and position normal Neck: No lymphadenopathy, no thyromegaly Resp: bilateral air entry equal, no added sounds present Cardio: Regular rate, regular rhythm; Heart sounds: S1 normal heart sound present and S2 normal heart sound present GI: soft, nontender, no guarding, no hepatosplenomegaly : bladder normal to inspection, bladder normal to palpation, no renal angle tenderness Skin: no rashes or lesions noted and elasticity normal Neuro: Sitting up in the bed but not following any commands Results Lab Results 07/21/25 08:39 07/21/25 07:04 Lab results: Chemistry 07/20/25 07/20/25 07/20/25 12:29 20:48 23:25 Sodium 150 H 149 H 148 H Potassium 4.0 6.4 H* D 5.2 H Carbon Dioxide 28 15 L 17 L BUN 58 H 57 H 57 H Creatinine 2.04 H 1.88 H 1.85 H Calcium 10.4 H 9.7 D 9.8 07/21/25 07:04 Sodium 152 H Potassium 4.6 Carbon Dioxide 19 L BUN 58 H Creatinine 1.93 H Calcium 10.2 Hematology 07/20/25 07/21/25 12:29 08:39 WBC 11.0 H 9.6 Hgb 11.3 L 10.6 L Plt Count 198 142 L D Urinalysis 07/20/25 07/21/25 14:06 06:38 Urine Color Yellow Yellow Urine Appearance Clear Clear Urine pH 5.5 5.5 Ur Specific [place] 1.025 1.025 Urine Protein 30 (1+) H 30 (1+) H Urine Glucose (UA) >=1000 H >=1000 H Urine Ketones 40 40 Urine Blood Negative Negative Urine Nitrite Negative Negative Ur Leukocyte Esterase Negative Negative Urine RBC 0-2 0-2 Urine WBC 0-5 0-5 Ur Squamous Epith Cells 0-2 0-2 Hyaline Casts 3-5 0-2 Assessment and Plan (1) Hypernatremia: Status: Acute (2) MARIBEL (acute kidney injury): Status: Resolved Plan Acute kidney injury: Possibly secondary to volume depletion Baseline creatinine about 1.22 increased to 2.04 upon presentation and is down to 1.93 this morning We will give her more fluids, half-normal saline at 0150 cc/hour We will repeat her labs in the evening to make sure her creatinine and sodium is trending in the right direction We will get repeat ketone levels Given her LFTs are up we will get CK levels Hypernatremia: Secondary to significant free water deficit We will change the fluids from D5 to half-normal saline We will get urine sodium, urine osmolality Procedures Date of Service Date of Service: 07/21/25
--- NOTE | 2025-07-21 14:10 | P.PNIM_ITS ---
Subjective Subjective Date of Service: 07/21/25 Interval History: Patient seen examined at bedside this morning, patient is hypernatremic, with MARIBEL, having episodes of blank stares, neurology consulted. Review of Systems Review of Systems: Yes all other systems are reviewed and are negative Physical Exam 2 Exam: Exam: General: Somnolent, Head: AT/NC ENT: Moist mucous membranes Neck: supple CVS; RRR, S1 S2 normal Lungs: Clear bilateral breath sounds, no wheezes or crackles Abd: Soft non tender, non distended Ext: No edema and no calf tenderness MSK: moving all 4 limbs Skin: No cyanosis or edema Psych: Does not follow commands Neurology: UTO Vital Signs: Vital Signs: Last Vital Signs Temp 98.5 F 07/21/25 11:29 Pulse 109 H 07/21/25 11:29 Resp 18 07/21/25 11:29 BP 148/70 H 07/21/25 11:29 Pulse Ox 100 07/21/25 11:29 O2 Del Method Room Air 07/21/25 11:29 BMI result Body Mass Index 25.9 Objective Data Active Medications Acetaminophen (Acetaminophen 325 Mg Tablet) 650 mg PO Q6H PRN PRN Reason: Pain, Mild 1-3,fever,headache Dextrose (Dextrose 50 % 25 Gm/50 Ml Syringe) 25 gm IVPUSH Q15M PRN; Protocol PRN Reason: per Hypoglycemia Standing Ord. Glucose (Glucose Gel 15 Gm Gel..Gram.) 15 gm PO Q15M PRN; Protocol PRN Reason: per Hypoglycemia Standing Ord. Heparin Sodium (Porcine) (Heparin Sodium,Porcine 5,000 Unit/Ml Vial) 5,000 unit SUBCUT Q12H [facility] Last Admin: 07/21/25 02:51 Dose: 5,000 unit Documented By: KAYLA Levetiracetam (Keppra) 500 mg in 100 mls @ 400 mls/hr IV Q12H [facility] Last Infusion: 07/21/25 10:46 Dose: Infused Documented By: CLAIRE Sodium Chloride (Sodium Chloride 0.45 %) 1,000 mls @ 150 mls/hr IVCONT .Q6H40M [facility] Insulin Glargine (Insulin Glargine,Hum.Rec.Anlog 100 Unit/Ml 10 Ml Vial) 10 unit SUBCUT BEDTIME TOM Insulin Human Lispro (Insulin Lispro 100 Unit/Ml 3 Ml Vial) 0 unit SUBCUT [facility]; Protocol Last Admin: 07/21/25 12:06 Dose: 8 unit Documented By: CLAIRE Ondansetron HCl (Ondansetron Hcl 4 Mg/2 Ml Vial) 4 mg IVPUSH Q8H PRN PRN Reason: Nausea and Vomiting Labs 07/21/25 08:39 07/21/25 07:04 Labs: Laboratory Results - last 24 hr 07/20/25 07/20/25 07/20/25 14:06 14:07 14:41 MCV MCH MCHC RDW Plt Count MPV Immature Gran % (Auto) Neut % (Auto) Lymph % (Auto) [place]offey % (Auto) Eos % (Auto) Baso % (Auto) Lymph # (Auto) [place]y # (Auto) Eos # (Auto) Baso # (Auto) Abs Immat Gran (auto) Absolute Neuts (auto) Absolute Nucleated RBC Nucleated RBC % (auto) Anion Gap Estim Creat Clear Calc Estimated GFR POC Glucose Random Glucose Calcium Total Bilirubin AST ALT Alkaline Phosphatase Troponin I High Sens Cancelled Total Protein Albumin Urine Color Yellow Urine Appearance Clear Urine pH 5.5 Ur Specific [place] 1.025 Urine Protein 30 (1+) H Urine Glucose (UA) >=1000 H Urine Ketones 40 Urine Blood Negative Urine Nitrite Negative Ur Leukocyte Esterase Negative Urine RBC 0-2 Urine WBC 0-5 Ur Squamous Epith Cells 0-2 Urine Bacteria None Seen Hyaline Casts 3-5 Urine Yeast Present Urine Opiates Screen Not Detected Ur Buprenorphine Scrn Not Detected Ur Oxycodone Screen Not Detected Urine Methadone Screen Not Detected Urine Fentanyl Screen Not Detected Ur Barbiturates Screen Not Detected Ur Phencyclidine Scrn Not Detected Ur Amphetamines Screen Not Detected U Benzodiazepines Scrn POSITIVE H Urine Cocaine Screen Not Detected U Marijuana (THC) Screen Not Detected Influenza Type A (PCR) NEGATIVE Influenza Type B (PCR) NEGATIVE RSV RNA Qual (PCR) NEGATIVE SARS-CoV-2 RNA (RT-PCR) NEGATIVE 07/20/25 07/20/25 07/20/25 14:41 20:48 23:25 MCV MCH MCHC RDW Plt Count MPV Immature Gran % (Auto) Neut % (Auto) Lymph % (Auto) [place] % (Auto) Eos % (Auto) Baso % (Auto) Lymph # (Auto) [place] # (Auto) Eos # (Auto) Baso # (Auto) Abs Immat Gran (auto) Absolute Neuts (auto) Absolute Nucleated RBC Nucleated RBC % (auto) Anion Gap 29 H 25 H Estim Creat Clear Calc 37.7 37.5 Estimated GFR 28 28 POC Glucose Random Glucose 403 H* 426 H* Calcium 9.7 D 9.8 Total Bilirubin AST ALT Alkaline Phosphatase Troponin I High Sens 28.8 H D Total Protein Albumin Urine Color Urine Appearance Urine pH Ur Specific [place] Urine Protein Urine Glucose (UA) Urine Ketones Urine Blood Urine Nitrite Ur Leukocyte Esterase Urine RBC Urine WBC Ur Squamous Epith Cells Urine Bacteria Hyaline Casts Urine Yeast Urine Opiates Screen Ur Buprenorphine Scrn Ur Oxycodone Screen Urine Methadone Screen Urine Fentanyl Screen Ur Barbiturates Screen Ur Phencyclidine Scrn Ur Amphetamines Screen U Benzodiazepines Scrn Urine Cocaine Screen U Marijuana (THC) Screen Influenza Type A (PCR) Influenza Type B (PCR) RSV RNA Qual (PCR) SARS-CoV-2 RNA (RT-PCR) 07/21/25 07/21/25 07/21/25 03:55 06:38 07:04 MCV MCH MCHC RDW Plt Count MPV Immature Gran % (Auto) Neut % (Auto) Lymph % (Auto) [place]offey % (Auto) Eos % (Auto) Baso % (Auto) Lymph # (Auto) [place]y # (Auto) Eos # (Auto) Baso # (Auto) Abs Immat Gran (auto) Absolute Neuts (auto) Absolute Nucleated RBC Nucleated RBC % (auto) Anion Gap 24 H Estim Creat Clear Calc 36.0 Estimated GFR 27 POC Glucose 399 H* Random Glucose 366 H* Calcium 10.2 Total Bilirubin 0.1 AST 39 H ALT 67 H Alkaline Phosphatase 182 H Troponin I High Sens Total Protein 8.4 H Albumin 4.6 Urine Color Yellow Urine Appearance Clear Urine pH 5.5 Ur Specific [place] 1.025 Urine Protein 30 (1+) H Urine Glucose (UA) >=1000 H Urine Ketones 40 Urine Blood Negative Urine Nitrite Negative Ur Leukocyte Esterase Negative Urine RBC 0-2 Urine WBC 0-5 Ur Squamous Epith Cells 0-2 Urine Bacteria 1+ Hyaline Casts 0-2 Urine Yeast Present Urine Opiates Screen Ur Buprenorphine Scrn Ur Oxycodone Screen Urine Methadone Screen Urine Fentanyl Screen Ur Barbiturates Screen Ur Phencyclidine Scrn Ur Amphetamines Screen U Benzodiazepines Scrn Urine Cocaine Screen U Marijuana (THC) Screen Influenza Type A (PCR) Influenza Type B (PCR) RSV RNA Qual (PCR) SARS-CoV-2 RNA (RT-PCR) 07/21/25 07/21/25 07/21/25 07:28 08:39 10:59 MCV 88.2 MCH 27.7 MCHC 31.5 RDW 13.9 Plt Count 142 L D MPV 9.9 Immature Gran % (Auto) 0.4 Neut % (Auto) 77.4 H Lymph % (Auto) 10.8 L [place]y % (Auto) 11.1 H Eos % (Auto) 0.0 Baso % (Auto) 0.3 Lymph # (Auto) 1.0 L [place] # (Auto) 1.1 Eos # (Auto) 0.0 Baso # (Auto) 0.0 Abs Immat Gran (auto) 0.04 H Absolute Neuts (auto) 7.4 Absolute Nucleated RBC 0.000 Nucleated RBC % (auto) 0.0 Anion Gap Estim Creat Clear Calc Estimated GFR POC Glucose 359 H* 302 H Random Glucose Calcium Total Bilirubin AST ALT Alkaline Phosphatase Troponin I High Sens Total Protein Albumin Urine Color Urine Appearance Urine pH Ur Specific [place] Urine Protein Urine Glucose (UA) Urine Ketones Urine Blood Urine Nitrite Ur Leukocyte Esterase Urine RBC Urine WBC Ur Squamous Epith Cells Urine Bacteria Hyaline Casts Urine Yeast Urine Opiates Screen Ur Buprenorphine Scrn Ur Oxycodone Screen Urine Methadone Screen Urine Fentanyl Screen Ur Barbiturates Screen Ur Phencyclidine Scrn Ur Amphetamines Screen U Benzodiazepines Scrn Urine Cocaine Screen U Marijuana (THC) Screen Influenza Type A (PCR) Influenza Type B (PCR) RSV RNA Qual (PCR) SARS-CoV-2 RNA (RT-PCR) Assessment and Plan (1) Hypernatremia: Status: Acute (2) Acute metabolic encephalopathy: Status: Acute Plan Toxic Metabolic encephalopathy, likely multifactorial Anion gap Metabolic Acidosis Labs reviewed, awaiting CK. beta hydroxibutirate Continue w/ IVf Keep NPO Nephrology following, to consider DKA, if DKA to transfer to ICU Acute Hypernatremia. likely 2/2 decrease oral intake Switched from D5NS to 1/2 NS at 150mL/hr Nephrology consulted follow BMP T2DM hold jardiance and metformin SSI, will schedule Insulin glargin 10 units Seizure disorder -Continue seizure medications -EEG ordered -Neurology consulted MARIBEL on CKD3 BUN:Cr > 20 , likely prerenal Continue IVF and monitor U\O and BMP HLD, chronic statin mood disorder benztropine,haldol, hydroxyzine Hypothyroid, chronic levothyroxine DVT PPx: Heparin Code status: Full code Total time managing care of this patient today: 55 minutes. Quality Stroke Does the patient have a stroke diagnosis?: No VTE Prior VTE?: No VTE Risk Level:: Medical - moderate - high VTE Device Contraindication: Treatment Not Indicated VTE Drug Contraindication: N/A - Med Ordered
[2025-07-21 16:21] LABS: Glucose, Whole Blood 150 mg/dL (60-115)
[2025-07-21 16:58] LABS: Anion Gap 17 (12-20); Blood Urea Nitrogen 51 mg/dL (9-16); Calcium 10.0 mg/dL (8.4-10.2); Carbon Dioxide 25 mmol/L (22-29); Chloride 118 mmol/L (96-108); Creatinine Clr Calc Pharmacy 39.4; Estimated Glomerular Filt Rate 30; Potassium 4.4 mmol/L (3.3-5.1); Sodium 156 mmol/L (135-145)
[2025-07-21 20:08] LABS: Glucose, Whole Blood 253 mg/dL (60-115)
[2025-07-21] MEDS: Insulin Glargine,Hum.rec.anlog 100 UNIT/ML 10 ML VIAL 10 UNIT SUBCUT (21:58)
[2025-07-22] VITALS (13 sets, daily range): BP systolic 144–181; BP diastolic 69–89; PULSE 88–114; RESP 16–32; TEMP 36.3–37.3; O2SAT 94–100
[2025-07-22 07:22] LABS: Glucose, Whole Blood 395 mg/dL (60-115)
[2025-07-22] MEDS: levETIRAcetam in NaCl (iso-os) 500 MG/100 ML PIGGYBACK 400 MG IV ×2 (08:50→20:01)
[2025-07-22 11:16] LABS: Hematocrit 34.8 % (37.0-47.0); Hemoglobin 11.1 g/dl (12.0-16.0); Mean Corpuscular HGB Conc 31.9 g/dl (31.0-35.0); Mean Corpuscular Hemoglobin 28.5 pg (27.0-33.0); Mean Corpuscular Volume 89.5 fL (80.0-98.0); NRBC Abs Auto 0.000 X10*3/uL (0.0-0.012); NRBC Pct Auto 0.0 /100WBC (0.0-0.2); Platelet Count 173 X10*3/uL (160-400); Red Blood Count 3.89 X10*6/uL (4.20-5.50); White Blood Count 8.2 X10*3/uL (4.8-10.8)
[2025-07-22 11:26] LABS: Glucose, Whole Blood 334 mg/dL (60-115)
--- NOTE | 2025-07-22 11:27 | MHC.SLORD ---
Speech Language Pathology Order Status: Patient continues to be catatonic. Per RN, not appropriate for WEBSPHERE CONSULTANT evaluation at this time. WEBSPHERE CONSULTANT will continue to follow and evaluate patient when appropriate.
[2025-07-22 11:54] LABS: Anion Gap 22 (12-20); Blood Urea Nitrogen 49 mg/dL (9-16); Calcium 9.5 mg/dL (8.4-10.2); Carbon Dioxide 16 mmol/L (22-29); Chloride 119 mmol/L (96-108); Creatinine Clr Calc Pharmacy 40.5; Estimated Glomerular Filt Rate 31; Potassium 4.1 mmol/L (3.3-5.1); Sodium 153 mmol/L (135-145)
[2025-07-22 13:35] LABS: Appearance Urine Clear; Glucose Urine UA >=1000 mg/dL (Negative); PH 5.5 (5.0-9.0); Specific Gravity - Urine 1.025 (1.005-1.025); UMIC TRIGGER UA YES
--- NOTE | 2025-07-22 15:07 | W.PM.CCCN ---
History of Present Illness Data of Consult Service Date: 07/22/25 Primary Care Provider: Roby Roth DO HPI Reason for consult: DKA 54-year-old lady with PMH of TBI, dementia, seizure disorder, SAH, anxiety, mood disorder, diabetes, hypertension, hyperlipidemia, hypothyroid and history of ESBL UTI is transferred from a half-way due to altered sensorium. Patient remains significantly altered, catatonic, not answering questions. Her oral intake has been extremely poor. Labs concerning for hypernatremia, MARIBEL and high anion gap metabolic acidosis. Her blood sugars are in 300s and 400s and ketones positive. Patient is on Jardiance at home for diabetes mellitus. Her baseline creatinine is around 1.22, increased to 2.04 yesterday decreased to 1.76 today. Review of Systems Review of Systems: unable to obtain [facility] Past Medical History Medical History Avulsed tooth Seizure Adjustment reaction with mixed disturbance of emotions and conduct Anxiety Mood disorder Leiomyoma of body of uterus Preglaucoma Presbyopia UTI (urinary tract infection) Hypothermia Long QT syndrome Sepsis COVID-19 Cystitis Hyperkalemia ESBL (extended spectrum beta-lactamase) producing bacteria infection Essential (primary) hypertension Diabetic retinopathy Anxiety Mood disorder Dementia Subarachnoid hemorrhage following injury TBI (traumatic brain injury) Unspecified dementia with behavioral disturbance Seizure disorder Hypothyroid Hyperlipidemia Diabetes Family History Family History Mother Breast cancer Surgical History Surgical History Hx of tubal ligation Social History Social History Household Members: Other Household Members Other:: care one Housing: Residential Do you presently have visiting nurse or other home services: No Alcohol intake: never Patient Tobacco Use Status: Never used Tobacco Advance Directives Date on File: 03/23/21 service: No Current occupational status: disabled Meds Allergies Allergy/AdvReac Type Severity Reaction Status Date / Time chlorpromazine Allergy Intermediate HIVES Verified 07/20/25 11:32 (CHLORPROMAZINE) Active Medications: Current Medications Acetaminophen (Acetaminophen 325 Mg Tablet) 650 mg PO Q6H PRN PRN Reason: Pain, Mild 1-3,fever,headache Dextrose (Dextrose 50 % 25 Gm/50 Ml Syringe) 25 gm IVPUSH Q15M PRN; Protocol PRN Reason: per Hypoglycemia Standing Ord. Glucose (Glucose Gel 15 Gm Gel..Gram.) 15 gm PO Q15M PRN; Protocol PRN Reason: per Hypoglycemia Standing Ord. Heparin Sodium (Porcine) (Heparin Sodium,Porcine 5,000 Unit/Ml Vial) 5,000 unit SUBCUT Q12H [facility] Last Admin: 07/22/25 02:09 Dose: 5,000 unit Levetiracetam (Keppra) 500 mg in 100 mls @ 400 mls/hr IV Q12H [facility] Last Infusion: 07/22/25 09:13 Dose: Infused Sodium Chloride (Sodium Chloride 0.45 %) 1,000 mls @ 150 mls/hr IVCONT .Q6H40M [facility] Last Admin: 07/22/25 08:52 Dose: 150 mls/hr Sodium Chloride (Sodium Chloride 0.45 %) 1,000 mls @ 999 mls/hr IV .Q1H1M ONE Stop: 07/22/25 16:00 Insulin Glargine (Insulin Glargine,Hum.Rec.Anlog 100 Unit/Ml 10 Ml Vial) 10 unit SUBCUT BEDTIME [facility] Last Admin: 07/21/25 21:58 Dose: 10 unit Insulin Human Lispro (Insulin Lispro 100 Unit/Ml 3 Ml Vial) 0 unit SUBCUT QIDACHS [facility]; Protocol Last Admin: 07/22/25 12:13 Dose: 10 unit Ondansetron HCl (Ondansetron Hcl 4 Mg/2 Ml Vial) 4 mg IVPUSH Q8H PRN PRN Reason: Nausea and Vomiting Home Medications ?Medication ?Instructions ?Recorded ?Confirmed ?Last Taken ?Type acetaminophen 325 mg tablet 650 mg PO Q12H PRN Fever Or Pain 10/29/22 07/20/25 Unknown History atorvastatin 10 mg tablet 10 mg PO BEDTIME 10/29/22 07/20/25 Unknown History benztropine 1 mg tablet 1 mg PO BID 10/29/22 07/20/25 Unknown History calcium 600 mg (as 1 tab PO BID 10/29/22 07/20/25 Unknown History carbonate)-vitamin D3 10 mcg (400 unit) tablet (Calcium 600 + D(3)) cholecalciferol (vitamin D3) 1,250 1,250 mcg PO MO@0900 10/29/22 07/20/25 Unknown History mcg (50,000 unit) capsule docusate sodium 100 mg capsule 100 mg PO BID 10/29/22 07/20/25 Unknown History gabapentin 600 mg tablet 600 mg PO TID 10/29/22 07/20/25 Unknown History guaifenesin 100 mg/5 mL oral liquid 200 mg PO Q4H PRN Cough 10/29/22 07/20/25 Unknown History haloperidol 10 mg tablet 10 mg PO BID 10/29/22 07/20/25 Unknown History haloperidol 5 mg tablet 5 mg PO BID 10/29/22 07/20/25 Unknown History hydroxyzine HCl 25 mg tablet 25 mg PO BID 10/29/22 07/20/25 Unknown History ibuprofen 600 mg tablet 600 mg PO Q8H PRN Moderate Pain 10/29/22 07/20/25 Unknown History (Scale Score 5-6) insulin aspart U-100 100 unit/mL 1 sliding scale dose subcut TIDAC 10/29/22 07/20/25 Unknown History subcutaneous solution (Novolog U-100 Insulin aspart) levetiracetam 1,000 mg tablet 1,000 mg PO BID 10/29/22 07/20/25 Unknown History metformin 1,000 mg tablet 1,000 mg PO BID 10/29/22 07/20/25 Unknown History oxcarbazepine 150 mg tablet 150 mg PO DAILY 10/29/22 07/20/25 Unknown History (Trileptal) oxcarbazepine 300 mg tablet 300 mg PO BEDTIME 10/29/22 07/20/25 Unknown History (Trileptal) sennosides 8.6 mg tablet (senna) 8.6 mg PO DAILY PRN Constipation 10/29/22 07/20/25 Unknown History sodium phosphates 19 gram-7 118 ml CO DAILY PRN Constipation, 10/29/22 07/20/25 Unknown History gram/118 mL enema (Fleet Enema) if bisacodyl ineffective cranberry fruit 450 mg tablet 450 mg PO DAILY 08/22/23 07/20/25 Unknown History (cranberry) insulin glargine 100 unit/mL (3 12 unit subcut BEDTIME 08/22/23 07/20/25 Unknown History mL) subcutaneous pen (Lantus Solostar U-100 Insulin) phenytoin 50 mg chewable tablet 100 mg PO DAILY 08/22/23 07/20/25 Unknown History ascorbic acid (vitamin C) 500 mg 500 mg PO DAILY 06/12/25 07/20/25 Unknown History tablet benztropine 0.5 mg tablet 0.5 mg PO BID 06/12/25 07/20/25 Unknown History empagliflozin 25 mg tablet 25 mg PO DAILY 06/12/25 07/20/25 Unknown History (Jardiance) glucagon HCl 1 mg solution for 1 mg subcut Q15M PRN target blood 06/12/25 07/20/25 Unknown History injection sugar attained levothyroxine 75 mcg tablet 75 mcg PO DAILY@0600 06/12/25 07/20/25 Unknown History multivitamin 1 tab PO DAILY 06/12/25 07/20/25 Unknown History naloxone 4 mg/actuation nasal 4 mg intranasal Q3M PRN suspected 06/12/25 07/20/25 Unknown History spray (Narcan) opioid overdose oxycodone-acetaminophen 5 mg-325 1 tab PO Q6H PRN moderate knee pain 06/12/25 07/20/25 Unknown History mg tablet (Percocet) phenytoin 50 mg chewable tablet 150 mg PO BEDTIME 06/12/25 07/20/25 Unknown History sennosides 8.6 mg tablet 8.6 mg PO BID 06/12/25 07/20/25 Unknown History tramadol 50 mg tablet 50 mg PO TID 06/12/25 07/20/25 Unknown History ferrous sulfate 325 mg (65 mg 325 mg PO DAILY 07/20/25 07/20/25 Unknown History iron) tablet Physical Exam Vital Signs: Vital Signs: Last Vital Signs Temp 98.6 F 07/22/25 11:24 Pulse 99 07/22/25 11:24 Resp 18 07/22/25 11:24 BP 158/82 H 07/22/25 11:24 Pulse Ox 100 07/22/25 11:24 O2 Del Method Room Air 07/22/25 11:24 BMI result Body Mass Index 25.9 General: not in any acute distress, ill appearing Nutritional Appearance: well nourished and overweight Eyes: appearance normal, both eyes and all related structures; Alignment and Position: alignment normal and position normal Neck: No lymphadenopathy, no thyromegaly Resp: bilateral air entry equal, no added sounds present Cardio: Regular rate, regular rhythm; Heart sounds: S1 normal heart sound present and S2 normal heart sound present GI: soft, nontender, no guarding, no hepatosplenomegaly : bladder normal to inspection, bladder normal to palpation, no renal angle tenderness Skin: no rashes or lesions noted and elasticity normal Neuro: catatonic, not following any commands Results Labs 07/22/25 11:07 07/22/25 11:07 Labs: Short CBC 07/22/25 Range/Units 11:07 WBC 8.2 (4.8-10.8) X10*3/uL Hgb 11.1 L (12.0-16.0) g/dl Hct 34.8 L (37.0-47.0) % Plt Count 173 (160-400) X10*3/uL BMP 07/21/25 07/22/25 16:18 11:07 Sodium 156 H 153 H Potassium 4.4 4.1 Chloride 118 H 119 H Carbon Dioxide 25 16 L BUN 51 H 49 H Creatinine 1.76 H 1.71 H Calcium 10.0 9.5 Cardiac Enzymes 07/21/25 Range/Units 16:18 Total Creatine Kinase 125 (26-140) U/L Urine 07/22/25 Range/Units 13:11 Urine Color Yellow Urine Appearance Clear Urine pH 5.5 (5.0-9.0) Ur Specific [place] 1.025 (1.005-1.025) Urine Protein 30 (1+) H (Neg-Trace) mg/dL Urine Glucose (UA) >=1000 H (Negative) mg/dL Microbiology Microbiology Results: Microbiology 07/20/25 12:36 Blood - Venous Blood Culture - Preliminary No growth after 48 hours. 07/20/25 14:41 Blood - Venous Blood Culture - Preliminary No growth after 24 hours. Assessment and Plan (1) Hypernatremia: Status: Acute (2) DKA (diabetic ketoacidosis): Status: Acute Plan DKA: Patient is diabetic and is on SGLT2 inhibitor at home admitted with high anion gap metabolic acidosis with hyperglycemia. She had high anion gap the decreased to 17 yesterday with IV fluids but again increased to 22 today possibly suggesting difficulty in clearing the ketoacidosis in the setting of SGLT2 inhibitors. We will transfer her to MICU and started on insulin drip, we will give her further fluid boluses. BMP, Mag, phos q.4 hours We will keep the patient NPO until the gap closes Given blood sugar checking and adjust insulin drip accordingly Acute kidney injury: Possibly secondary to volume depletion Baseline creatinine about 1.22 increased to 2.04 upon presentation and is down to 1.76 this morning We will give her more fluid boluses, half-normal saline at 0150 cc/hour Creatinine kinase normal Hypernatremia: Secondary to significant free water deficit Urine sodium 40, urine osmolality close to 600 possibly suggestive severe volume depletion Should improve with IV fluid boluses Psychiatric illness: Continue Keppra 1g b.i.d. We will restart home haloperidol, oxcarbazepine and benztropine If the patient can not take orally we will restart IM haloperidol Hypothyroidism: we will restart home levothyroxine Prophylaxis: Heparin, famotidine
--- NOTE | 2025-07-22 15:36 | P.PNIM_ITS ---
Subjective Subjective Date of Service: 07/22/25 Interval History: Patient seen and examined at bedside this morning, patient's sodium increasing, as well as creatinine. Beta hydroxybutyrate elevated. Spoke with ICU, plans on upgrading to the ICU for insulin drip and close monitoring. Review of Systems Review of Systems: Yes all other systems are reviewed and are negative Physical Exam 2 Exam: Exam: General: opens eyes, no tracking, oriented x0 Head: AT/NC ENT: Dry mucous membranes Neck: supple CVS; RRR, S1 S2 normal Lungs: Clear bilateral breath sounds, no wheezes or crackles Abd: Soft non tender, non distended Ext: No edema and no calf tenderness, Left upper extremity mass? MSK: moving all 4 limbs Skin: No cyanosis or edema Psych: UTO Neurology: UTO Vital Signs: Vital Signs: Last Vital Signs Temp 98.6 F 07/22/25 11:24 Pulse 99 07/22/25 11:24 Resp 18 07/22/25 11:24 BP 158/82 H 07/22/25 11:24 Pulse Ox 100 07/22/25 11:24 O2 Del Method Room Air 07/22/25 11:24 BMI result Body Mass Index 25.9 Objective Data Active Medications Acetaminophen (Acetaminophen 325 Mg Tablet) 650 mg PO Q6H PRN PRN Reason: Pain, Mild 1-3,fever,headache Dextrose (Dextrose 50 % 25 Gm/50 Ml Syringe) 25 gm IVPUSH Q15M PRN; Protocol PRN Reason: per Hypoglycemia Standing Ord. Glucose (Glucose Gel 15 Gm Gel..Gram.) 15 gm PO Q15M PRN; Protocol PRN Reason: per Hypoglycemia Standing Ord. Heparin Sodium (Porcine) (Heparin Sodium,Porcine 5,000 Unit/Ml Vial) 5,000 unit SUBCUT Q12H [facility] Last Admin: 07/22/25 02:09 Dose: 5,000 unit Documented By: PAU Levetiracetam (Keppra) 500 mg in 100 mls @ 400 mls/hr IV Q12H [facility] Last Infusion: 07/22/25 09:13 Dose: Infused Documented By: RICCIAV Sodium Chloride (Sodium Chloride 0.45 %) 1,000 mls @ 150 mls/hr IVCONT .Q6H40M [facility] Last Admin: 07/22/25 08:52 Dose: 150 mls/hr Documented By: DONELL Sodium Chloride (Sodium Chloride 0.45 %) 1,000 mls @ 999 mls/hr IV .Q1H1M ONE Stop: 07/22/25 16:00 Insulin Glargine (Insulin Glargine,Hum.Rec.Anlog 100 Unit/Ml 10 Ml Vial) 10 unit SUBCUT BEDTIME [facility] Last Admin: 07/21/25 21:58 Dose: 10 unit Documented By: PAU Insulin Human Lispro (Insulin Lispro 100 Unit/Ml 3 Ml Vial) 0 unit SUBCUT QIDACHS [facility]; Protocol Last Admin: 07/22/25 12:13 Dose: 10 unit Documented By: DONELL Ondansetron HCl (Ondansetron Hcl 4 Mg/2 Ml Vial) 4 mg IVPUSH Q8H PRN PRN Reason: Nausea and Vomiting Labs 07/22/25 11:07 07/22/25 11:07 Labs: Laboratory Results - last 24 hr 07/21/25 07/21/25 07/21/25 15:43 16:18 20:02 MCV MCH MCHC RDW Plt Count MPV Absolute Nucleated RBC Nucleated RBC % (auto) Anion Gap 17 Estim Creat Clear Calc 39.4 Estimated GFR 30 POC Glucose 150 H 253 H Random Glucose 161 H Calcium 10.0 Total Creatine Kinase 125 Beta-Hydroxybutyrate 2.74 H Urine Color Urine Appearance Urine pH Ur Specific [place] Urine Protein Urine Glucose (UA) Urine Ketones Urine Blood Urine Nitrite Ur Leukocyte Esterase Urine RBC Urine WBC Ur Squamous Epith Cells Urine Bacteria Hyaline Casts Urine Osmolality Ur Random Sodium 07/22/25 07/22/25 07/22/25 07:14 11:07 11:22 MCV 89.5 MCH 28.5 MCHC 31.9 RDW 14.5 Plt Count 173 MPV 10.9 Absolute Nucleated RBC 0.000 Nucleated RBC % (auto) 0.0 Anion Gap 22 H Estim Creat Clear Calc 40.5 Estimated GFR 31 POC Glucose 395 H* 334 H Random Glucose 285 H Calcium 9.5 Total Creatine Kinase Beta-Hydroxybutyrate Urine Color Urine Appearance Urine pH Ur Specific [place] Urine Protein Urine Glucose (UA) Urine Ketones Urine Blood Urine Nitrite Ur Leukocyte Esterase Urine RBC Urine WBC Ur Squamous Epith Cells Urine Bacteria Hyaline Casts Urine Osmolality Ur Random Sodium 07/22/25 13:11 MCV MCH MCHC RDW Plt Count MPV Absolute Nucleated RBC Nucleated RBC % (auto) Anion Gap Estim Creat Clear Calc Estimated GFR POC Glucose Random Glucose Calcium Total Creatine Kinase Beta-Hydroxybutyrate Urine Color Yellow Urine Appearance Clear Urine pH 5.5 Ur Specific [place] 1.025 Urine Protein 30 (1+) H Urine Glucose (UA) >=1000 H Urine Ketones 80 Urine Blood Trace H Urine Nitrite Positive H Ur Leukocyte Esterase Small (1+) H Urine RBC 0-2 Urine WBC >50 H Ur Squamous Epith Cells 0-2 Urine Bacteria 4+ Hyaline Casts 0-2 Urine Osmolality 685 Ur Random Sodium 40.0 Microbiology Microbiology Results: Microbiology 07/20/25 12:36 Blood Culture - Preliminary Blood - Venous No growth after 48 hours. 07/20/25 14:41 Blood Culture - Preliminary Blood - Venous No growth after 24 hours. Assessment and Plan (1) Acute metabolic encephalopathy: Status: Acute Plan Assessment: 54-year-old female with history of TBI, dementia, seizure disorder, SAH, GERD, T2 dm, HTN, HLD, hypothyroidism and recurrent UTIs who presented from [facility] for encephalopathy. On initial ED workup, with hyperglycemia, ketosis, hypernatremia and normal anion gap with normal bicarbonate. Patient treated with IV fluids, however persisted with elevated glucose, ketones, anion gap. Transferred to ICU on 07/22 for insulin drip for suspected DKA. Toxic Metabolic encephalopathy, likely multifactorial Anion gap Metabolic Acidosis Labs reviewed, Continue w/ IVf Keep NPO Nephrology following, will upgrade to ICU for insulin drip Acute Hypernatremia. likely 2/2 decrease oral intake continue 1/2 NS at 150mL/hr Nephrology consulted follow BMP T2DM hold jardiance and metformin SSI, continue Insulin glargin 10 units Seizure disorder -Continue seizure medications -Neurology consulted MARIBEL on CKD3 BUN:Cr > 20 , likely prerenal Continue IVF and monitor U\O and BMP HLD, chronic statin mood disorder benztropine,haldol, hydroxyzine Hypothyroid, chronic levothyroxine DVT PPx: Heparin Code status: Full code Total time managing care of this patient today: 55 minutes. Quality Stroke Does the patient have a stroke diagnosis?: No VTE Prior VTE?: No VTE Risk Level:: Medical - moderate - high VTE Device Contraindication: Treatment Not Indicated VTE Drug Contraindication: N/A - Med Ordered
[2025-07-22 15:49] LABS: Glucose, Whole Blood 135 mg/dL (60-115)
[2025-07-22 17:13] LABS: Glucose, Whole Blood 137 mg/dL (60-115)
[2025-07-22] MEDS: Insulin Regular/NS 100 UNIT/100 ML PLAST..BAG 7 UNIT IVCONT (17:20)
[2025-07-22 17:21] LABS: Anion Gap 17 (12-20); Blood Urea Nitrogen 43 mg/dL (9-16); Calcium 9.0 mg/dL (8.4-10.2); Carbon Dioxide 20 mmol/L (22-29); Chloride 120 mmol/L (96-108); Creatinine Clr Calc Pharmacy 42.8; Estimated Glomerular Filt Rate 33; Potassium 4.2 mmol/L (3.3-5.1); Sodium 153 mmol/L (135-145)
[2025-07-22 18:06] LABS: Glucose, Whole Blood 142 mg/dL (60-115)
[2025-07-22 19:04] LABS: Glucose, Whole Blood 146 mg/dL (60-115)
[2025-07-22] MEDS: Dextrose 5 % and 0.45 % NaCl 1,000 ML 150 ML IVCONT (19:26)
--- NOTE | 2025-07-22 19:45 | PC.NURSE ---
patient arrived from [place] to unit via bed at 1720, insulin gtt and IVF started as ordered, BP noted to be elevated 170's/80's, Hydralazine ordered and given, patient minimally responsive to questions, tracks at times, did yell Just leave me alone, Please while being cleaned up of incontinent of urine episode. New IV access placed x2, Lung sounds Dim through out. New purewick placed.
[2025-07-22 20:05] LABS: Glucose, Whole Blood 142 mg/dL (60-115)
[2025-07-22 20:31] LABS: Alanine Aminotransferase 62 U/L (0-31); Albumin Level 3.8 g/dL (3.5-5.0); Alkaline Phosphatase 150 U/L (39-117); Anion Gap 19 (12-20); Blood Urea Nitrogen 41 mg/dL (9-16); Calcium 8.9 mg/dL (8.4-10.2); Carbon Dioxide 21 mmol/L (22-29); Chloride 118 mmol/L (96-108); Creatinine Clr Calc Pharmacy 44.8; Estimated Glomerular Filt Rate 35; Magnesium 2.4 mg/dL (1.6-2.6); Potassium 3.9 mmol/L (3.3-5.1); Sodium 154 mmol/L (135-145); Total Protein 7.1 g/dL (6.5-8.0)
[2025-07-22 20:45] LABS: Aspartate Amino Transferase 58 U/L (5-31)
[2025-07-22] MEDS: Potassium Phosphate/NS 15 MMOL/250 ML PLAST..BAG 62.5 MMOL IV (20:49)
[2025-07-22 21:05] LABS: Glucose, Whole Blood 163 mg/dL (60-115)
[2025-07-22 23:41] LABS: Glucose, Whole Blood 234 mg/dL (60-115)
[2025-07-23] VITALS (26 sets, daily range): BP systolic 137–174; BP diastolic 58–92; PULSE 75–130; RESP 11–37; TEMP 36.8–37.9; O2SAT 93–100; BMI 26.4
[2025-07-23 01:08] LABS: Glucose, Whole Blood 213 mg/dL (60-115)
[2025-07-23] MEDS: Potassium Phosphate/NS 15 MMOL/250 ML PLAST..BAG 62.5 MMOL IV ×2 (01:15→07:55)
[2025-07-23 01:17] LABS: Ammonia 26 umol/L (13-55)
[2025-07-23 01:26] LABS: Alanine Aminotransferase 61 U/L (0-31); Albumin Level 3.6 g/dL (3.5-5.0); Alkaline Phosphatase 138 U/L (39-117); Anion Gap 12 (12-20); Aspartate Amino Transferase 68 U/L (5-31); Blood Urea Nitrogen 36 mg/dL (9-16); Calcium 8.5 mg/dL (8.4-10.2); Carbon Dioxide 23 mmol/L (22-29); Chloride 119 mmol/L (96-108); Creatinine Clr Calc Pharmacy 47.9; Estimated Glomerular Filt Rate 37; Potassium 3.2 mmol/L (3.3-5.1); Sodium 151 mmol/L (135-145); Total Protein 6.6 g/dL (6.5-8.0)
--- NOTE | 2025-07-23 02:28 | PC.NURSE ---
Addendum entered by Faizan Tran RN 07/23/25 05:59: AM CHEMISTRY REVIEWED WITH ICU PA...D51/2NS MAINTAINED AT 100 CC/HR AND INSULIN DRIP INCREASED FROM 1 TO 2 UNITS HR..TO RECHECK POC GLUCOSE IN 1 HOUR PER PROVIDER (PREVIOUSLY DECREASED TO Q2HR BY PROVIDER) Addendum entered by Faizan Tran RN 07/23/25 02:52: REMAINS NPO...UNABLE TO TAKE PO MEDS..PROVIDER AWARE Original Note: CARE ASSUMED 7PM..PATIENT AWAKE..BRIEFLY TRACKS SPEAKER...NON-VERBAL...[place] BUT NOT TO COMMAND..RESPIRATIONS EASY ON ROOM AIR..UNABLE TO OBTAIN SAO2 WAVEFORM/READING PERIPHERALLY...SAO2 VIA FOREHEAD 96-100% ON ROOM AIR..IV FLUIDS CHANGED TO D5 1/2NS 150 CC/HR BY PROVIDER THEN LATER WEANED TO 100 CC/HR PER PROVIDER..INSULIN DRIP PER MAR TITRATED PER PROVIDER....BLADDER SCANNED 8PM 467ml... YODER CATHETER INSERTED PER PROVIDER AND 400ml YELLOW URINE OBTAINED ON INSERTION...POOR IV ACCESS ...#20 ANGIO RIGHT UPPER ARM NON-PATENT...IV SITES TO RIGHT AND LEFT ARM FUNCTIONAL BUT W/O BLOOD RETURN...MULTIPLE UNSUCCESSFUL ATTEMPTS AT ADDITIONAL PERIPHERAL ACCESS....OBSTETRICS/GYNECOLOGY NURSE ATTEMPTED MULTIPLE ULTRASOUND IV ACCESS ATTEMPTS W/O SUCCESS...PHLEBOTOMY UNABLE TO OBTAIN LAB DRAW...TLC INSERTED BY PROVIDER TO RIGHT JUGULAR SITE...PLACEMENT CONFIRMED BY CXR AND OK TO USE TLC PER PROVIDER...REMAINS CONFUSED...RANDOMLY SITTING UP AND PULLING ON LEADS AND LINES..BILATERAL SOFT WRIST RESTRAINTS PLACED PER PROVIDER FOR LINE SAFETY..NSR/S.TACH HR 90'S-100'S..NO ECTOPY
[2025-07-23 03:03] LABS: Glucose, Whole Blood 155 mg/dL (60-115)
[2025-07-23] MEDS: Dextrose 5 % and 0.45 % NaCl 1,000 ML 100 ML IVCONT (03:08)
--- NOTE | 2025-07-23 03:48 | W.PM.CCHP ---
Procedures Date of Service Date of Service: 07/23/25 <MARIA R Mitchell - Last Filed: 07/23/25 03:51> 07/23/25 <Duane Cochran MD - Last Filed: 07/23/25 08:54> Central Line Placement Right IJ: Central Line Comments: pt imposssible to draw labs from despite several attempts by RNs with and without US, unable to place EJ not wide enough, therefore in need of management a R CVL under US was placed <MARIA R Mitchell - Last Filed: 07/23/25 03:51> Time out performed: Yes <MARIA R Mitchell - Last Filed: 07/23/25 03:51> Sterile Technique Used: Yes <MARIA R Mitchell - Last Filed: 07/23/25 03:51> Patient placed on monitor/pulse ox: Yes <MARIA R Mitchell - Last Filed: 07/23/25 03:51> MD prep: mask, gown, gloves and other (cap) <MARIA R Mitchell - Last Filed: 07/23/25 03:51> Central line prep: Chlorhexidine scrub <MARIA R Mitchell - Last Filed: 07/23/25 03:51> Local anesthesia used: lidocaine 1% <MARIA R Mitchell - Last Filed: 07/23/25 03:51> Amount of anesthesia used (ml): 5 <MARIA R Mitchell - Last Filed: 07/23/25 03:51> Ultrasound used for placement: Yes <MARIA R Mitchell - Last Filed: 07/23/25 03:51> Central line lumen inserted: triple (16 cm) <MARIA R Mitchell - Last Filed: 07/23/25 03:51> Post procedure: sutured in place, good blood return, all ports aspirated, flushed, capped and sterile dressing applied <MARIA R Mitchell Last Filed: 07/23/25 03:51> Post procedure x-ray: tip of catheter in good position and no pneumothorax seen <MARIA R Mitchell Last Filed: 07/23/25 03:51> Patient tolerated procedure: well <MARIA R Mitchell - Last Filed: 07/23/25 03:51> Complications: none <MARIA R Mitchell - Last Filed: 07/23/25 03:51>
[2025-07-23 05:11] LABS: Glucose, Whole Blood 98 mg/dL (60-115)
[2025-07-23 05:11] LABS: Glucose, Whole Blood 95 mg/dL (60-115)
[2025-07-23 05:26] LABS: Hematocrit 32.5 % (37.0-47.0); Hemoglobin 10.5 g/dl (12.0-16.0); Imm Gran Abs Auto 0.04 X10*3/uL (0.00-0.03); Imm Gran Pct Auto 0.5 % (0.0-0.4); Lymphocytes Absolute Auto 1.7 X10*3/uL (1.2-4.9); MANUAL DIFF FLAG NO; Mean Corpuscular HGB Conc 32.3 g/dl (31.0-35.0); Mean Corpuscular Hemoglobin 28.5 pg (27.0-33.0); Mean Corpuscular Volume 88.1 fL (80.0-98.0); NRBC Abs Auto 0.020 X10*3/uL (0.0-0.012); NRBC Pct Auto 0.3 /100WBC (0.0-0.2); Platelet Count 156 X10*3/uL (160-400); Red Blood Count 3.69 X10*6/uL (4.20-5.50); White Blood Count 7.8 X10*3/uL (4.8-10.8)
[2025-07-23 05:29] LABS: VBG HCO3 24 mmol/L (22-26); VBG O2 % Saturation 92.0 %
[2025-07-23 05:30] LABS: Venous Blood Gas Refer to POC result
[2025-07-23 05:41] LABS: Alanine Aminotransferase 61 U/L (0-31); Albumin Level 3.7 g/dL (3.5-5.0); Alkaline Phosphatase 143 U/L (39-117); Anion Gap 16 (12-20); Aspartate Amino Transferase 68 U/L (5-31); Blood Urea Nitrogen 32 mg/dL (9-16); Calcium 8.8 mg/dL (8.4-10.2); Carbon Dioxide 23 mmol/L (22-29); Chloride 121 mmol/L (96-108); Creatinine Clr Calc Pharmacy 50.3; Estimated Glomerular Filt Rate 40; Magnesium 2.2 mg/dL (1.6-2.6); Potassium 3.6 mmol/L (3.3-5.1); Sodium 156 mmol/L (135-145); Total Protein 6.8 g/dL (6.5-8.0)
[2025-07-23 06:07] LABS: Glucose, Whole Blood 106 mg/dL (60-115)
[2025-07-23 07:00] LABS: Glucose, Whole Blood 122 mg/dL (60-115)
[2025-07-23] MEDS: levETIRAcetam in NaCl (iso-os) 500 MG/100 ML PIGGYBACK 400 MG IV ×2 (07:55→19:45)
[2025-07-23 08:09] LABS: Glucose, Whole Blood 122 mg/dL (60-115)
--- NOTE | 2025-07-23 08:54 | P.PNCC_ITS ---
Subjective Subjective Date of Service: 07/23/25 Interval History: No new events overnight labs improving except for hypernatremia mental status is better this morning Critical Care Time (minutes): 35 Physical Exam 2 Vital Signs: Vital Signs: Last Vital Signs Temp 99.7 F 07/23/25 08:00 Pulse 130 H 07/23/25 08:00 Resp 14 07/23/25 08:00 BP 167/75 H 07/23/25 08:00 Pulse Ox 100 07/23/25 08:00 O2 Del Method Room Air 07/23/25 08:00 BMI result Body Mass Index 26.4 General: not in any acute distress, ill appearing Nutritional Appearance: well nourished and overweight Eyes: appearance normal, both eyes and all related structures; Alignment and Position: alignment normal and position normal Neck: No lymphadenopathy, no thyromegaly Resp: bilateral air entry equal, no added sounds present Cardio: Regular rate, regular rhythm GI: soft, nontender, no guarding, no hepatosplenomegaly : bladder normal to inspection, bladder normal to palpation, no renal angle tenderness Skin: no rashes or lesions noted and elasticity normal Neuro: alert, oriented x 3, moves all extremities Objective Data Labs 07/23/25 05:17 07/23/25 05:17 Labs: Laboratory Results - last 24 hr 07/22/25 07/22/25 07/22/25 11:07 11:22 13:11 WBC 8.2 RBC 3.89 L Hgb 11.1 L Hct 34.8 L MCV 89.5 MCH 28.5 MCHC 31.9 RDW 14.5 Plt Count 173 MPV 10.9 Immature Gran % (Auto) Neut % (Auto) Lymph % (Auto) [place] % (Auto) Eos % (Auto) Baso % (Auto) Lymph # (Auto) [place] # (Auto) Eos # (Auto) Baso # (Auto) Abs Immat Gran (auto) Absolute Neuts (auto) Absolute Nucleated RBC 0.000 Nucleated RBC % (auto) 0.0 VBG pH VBG pCO2 VBG pO2 VBG HCO3 VBG O2 Saturation VBG Base Excess Sodium 153 H Potassium 4.1 Chloride 119 H Carbon Dioxide 16 L Anion Gap 22 H BUN 49 H Creatinine 1.71 H Estim Creat Clear Calc 40.5 Estimated GFR 31 POC Glucose 334 H Random Glucose 285 H Calcium 9.5 Phosphorus Magnesium Total Bilirubin AST ALT Alkaline Phosphatase Ammonia Total Protein Albumin Beta-Hydroxybutyrate TSH Urine Color Yellow Urine Appearance Clear Urine pH 5.5 Ur Specific [place] 1.025 Urine Protein 30 (1+) H Urine Glucose (UA) >=1000 H Urine Ketones 80 Urine Blood Trace H Urine Nitrite Positive H Ur Leukocyte Esterase Small (1+) H Urine RBC 0-2 Urine WBC >50 H Ur Squamous Epith Cells 0-2 Urine Bacteria 4+ Hyaline Casts 0-2 Urine Osmolality 685 Ur Random Sodium 40.0 07/22/25 07/22/25 07/22/25 15:46 17:00 17:10 WBC RBC Hgb Hct MCV MCH MCHC RDW Plt Count MPV Immature Gran % (Auto) Neut % (Auto) Lymph % (Auto) [place] % (Auto) Eos % (Auto) Baso % (Auto) Lymph # (Auto) [place] # (Auto) Eos # (Auto) Baso # (Auto) Abs Immat Gran (auto) Absolute Neuts (auto) Absolute Nucleated RBC Nucleated RBC % (auto) VBG pH VBG pCO2 VBG pO2 VBG HCO3 VBG O2 Saturation VBG Base Excess Sodium 153 H Potassium 4.2 Chloride 120 H Carbon Dioxide 20 L Anion Gap 17 BUN 43 H Creatinine 1.62 H Estim Creat Clear Calc 42.8 Estimated GFR 33 POC Glucose 135 H 137 H Random Glucose 147 H Calcium 9.0 Phosphorus 1.5 L Magnesium Total Bilirubin AST ALT Alkaline Phosphatase Ammonia Total Protein Albumin Beta-Hydroxybutyrate TSH Urine Color Urine Appearance Urine pH Ur Specific [place] Urine Protein Urine Glucose (UA) Urine Ketones Urine Blood Urine Nitrite Ur Leukocyte Esterase Urine RBC Urine WBC Ur Squamous Epith Cells Urine Bacteria Hyaline Casts Urine Osmolality Ur Random Sodium 07/22/25 07/22/25 07/22/25 18:03 19:01 19:43 WBC RBC Hgb Hct MCV MCH MCHC RDW Plt Count MPV Immature Gran % (Auto) Neut % (Auto) Lymph % (Auto) [place] % (Auto) Eos % (Auto) Baso % (Auto) Lymph # (Auto) [place] # (Auto) Eos # (Auto) Baso # (Auto) Abs Immat Gran (auto) Absolute Neuts (auto) Absolute Nucleated RBC Nucleated RBC % (auto) VBG pH VBG pCO2 VBG pO2 VBG HCO3 VBG O2 Saturation VBG Base Excess Sodium 154 H Potassium 3.9 Chloride 118 H Carbon Dioxide 21 L Anion Gap 19 BUN 41 H Creatinine 1.55 H Estim Creat Clear Calc 44.8 Estimated GFR 35 POC Glucose 142 H 146 H Random Glucose 180 H Calcium 8.9 Phosphorus 1.4 L Magnesium 2.4 Total Bilirubin 0.2 AST 58 H ALT 62 H Alkaline Phosphatase 150 H Ammonia Total Protein 7.1 Albumin 3.8 Beta-Hydroxybutyrate TSH 0.48 Urine Color Urine Appearance Urine pH Ur Specific [place] Urine Protein Urine Glucose (UA) Urine Ketones Urine Blood Urine Nitrite Ur Leukocyte Esterase Urine RBC Urine WBC Ur Squamous Epith Cells Urine Bacteria Hyaline Casts Urine Osmolality Ur Random Sodium 07/22/25 07/22/25 07/22/25 20:01 21:02 22:38 WBC RBC Hgb Hct MCV MCH MCHC RDW Plt Count MPV Immature Gran % (Auto) Neut % (Auto) Lymph % (Auto) [place] % (Auto) Eos % (Auto) Baso % (Auto) Lymph # (Auto) [place] # (Auto) Eos # (Auto) Baso # (Auto) Abs Immat Gran (auto) Absolute Neuts (auto) Absolute Nucleated RBC Nucleated RBC % (auto) VBG pH VBG pCO2 VBG pO2 VBG HCO3 VBG O2 Saturation VBG Base Excess Sodium Potassium Chloride Carbon Dioxide Anion Gap BUN Creatinine Estim Creat Clear Calc Estimated GFR POC Glucose 142 H 163 H 205 H Random Glucose Calcium Phosphorus Magnesium Total Bilirubin AST ALT Alkaline Phosphatase Ammonia Total Protein Albumin Beta-Hydroxybutyrate TSH Urine Color Urine Appearance Urine pH Ur Specific [place] Urine Protein Urine Glucose (UA) Urine Ketones Urine Blood Urine Nitrite Ur Leukocyte Esterase Urine RBC Urine WBC Ur Squamous Epith Cells Urine Bacteria Hyaline Casts Urine Osmolality Ur Random Sodium 07/22/25 07/23/25 07/23/25 23:35 01:00 01:03 WBC RBC Hgb Hct MCV MCH MCHC RDW Plt Count MPV Immature Gran % (Auto) Neut % (Auto) Lymph % (Auto) [place] % (Auto) Eos % (Auto) Baso % (Auto) Lymph # (Auto) [place] # (Auto) Eos # (Auto) Baso # (Auto) Abs Immat Gran (auto) Absolute Neuts (auto) Absolute Nucleated RBC Nucleated RBC % (auto) VBG pH VBG pCO2 VBG pO2 VBG HCO3 VBG O2 Saturation VBG Base Excess Sodium 151 H Potassium 3.2 L Chloride 119 H Carbon Dioxide 23 Anion Gap 12 BUN 36 H Creatinine 1.45 H Estim Creat Clear Calc 47.9 Estimated GFR 37 POC Glucose 234 H 213 H Random Glucose 226 H Calcium 8.5 Phosphorus Magnesium Total Bilirubin 0.2 AST 68 H ALT 61 H Alkaline Phosphatase 138 H Ammonia 26 Total Protein 6.6 Albumin 3.6 Beta-Hydroxybutyrate 1.56 H TSH Urine Color Urine Appearance Urine pH Ur Specific [place] Urine Protein Urine Glucose (UA) Urine Ketones Urine Blood Urine Nitrite Ur Leukocyte Esterase Urine RBC Urine WBC Ur Squamous Epith Cells Urine Bacteria Hyaline Casts Urine Osmolality Ur Random Sodium 07/23/25 07/23/25 07/23/25 02:59 05:04 05:07 WBC RBC Hgb Hct MCV MCH MCHC RDW Plt Count MPV Immature Gran % (Auto) Neut % (Auto) Lymph % (Auto) [place] % (Auto) Eos % (Auto) Baso % (Auto) Lymph # (Auto) [place] # (Auto) Eos # (Auto) Baso # (Auto) Abs Immat Gran (auto) Absolute Neuts (auto) Absolute Nucleated RBC Nucleated RBC % (auto) VBG pH VBG pCO2 VBG pO2 VBG HCO3 VBG O2 Saturation VBG Base Excess Sodium Potassium Chloride Carbon Dioxide Anion Gap BUN Creatinine Estim Creat Clear Calc Estimated GFR POC Glucose 155 H 98 95 Random Glucose Calcium Phosphorus Magnesium Total Bilirubin AST ALT Alkaline Phosphatase Ammonia Total Protein Albumin Beta-Hydroxybutyrate TSH Urine Color Urine Appearance Urine pH Ur Specific [place] Urine Protein Urine Glucose (UA) Urine Ketones Urine Blood Urine Nitrite Ur Leukocyte Esterase Urine RBC Urine WBC Ur Squamous Epith Cells Urine Bacteria Hyaline Casts Urine Osmolality Ur Random Sodium 07/23/25 07/23/25 07/23/25 05:17 05:25 05:53 WBC 7.8 RBC 3.69 L Hgb 10.5 L Hct 32.5 L MCV 88.1 MCH 28.5 MCHC 32.3 RDW 14.0 Plt Count 156 L MPV 8.9 L Immature Gran % (Auto) 0.5 H Neut % (Auto) 66.4 Lymph % (Auto) 22.0 [place] % (Auto) 10.8 Eos % (Auto) 0.0 Baso % (Auto) 0.3 Lymph # (Auto) 1.7 [place] # (Auto) 0.8 Eos # (Auto) 0.0 Baso # (Auto) 0.0 Abs Immat Gran (auto) 0.04 H Absolute Neuts (auto) 5.2 Absolute Nucleated RBC 0.020 H Nucleated RBC % (auto) 0.3 H VBG pH 7.55 H VBG pCO2 27 VBG pO2 61 VBG HCO3 24 VBG O2 Saturation 92.0 VBG Base Excess 3.3 Sodium 156 H Potassium 3.6 Chloride 121 H Carbon Dioxide 23 Anion Gap 16 BUN 32 H Creatinine 1.38 Estim Creat Clear Calc 50.3 Estimated GFR 40 POC Glucose 106 Random Glucose 106 Calcium 8.8 Phosphorus 2.3 L Magnesium 2.2 Total Bilirubin 0.2 AST 68 H ALT 61 H Alkaline Phosphatase 143 H Ammonia Total Protein 6.8 Albumin 3.7 Beta-Hydroxybutyrate 0.80 H TSH Urine Color Urine Appearance Urine pH Ur Specific [place] Urine Protein Urine Glucose (UA) Urine Ketones Urine Blood Urine Nitrite Ur Leukocyte Esterase Urine RBC Urine WBC Ur Squamous Epith Cells Urine Bacteria Hyaline Casts Urine Osmolality Ur Random Sodium 07/23/25 07/23/25 06:57 08:01 WBC RBC Hgb Hct MCV MCH MCHC RDW Plt Count MPV Immature Gran % (Auto) Neut % (Auto) Lymph % (Auto) [place] % (Auto) Eos % (Auto) Baso % (Auto) Lymph # (Auto) [place] # (Auto) Eos # (Auto) Baso # (Auto) Abs Immat Gran (auto) Absolute Neuts (auto) Absolute Nucleated RBC Nucleated RBC % (auto) VBG pH VBG pCO2 VBG pO2 VBG HCO3 VBG O2 Saturation VBG Base Excess Sodium Potassium Chloride Carbon Dioxide Anion Gap BUN Creatinine Estim Creat Clear Calc Estimated GFR POC Glucose 122 H 122 H Random Glucose Calcium Phosphorus Magnesium Total Bilirubin AST ALT Alkaline Phosphatase Ammonia Total Protein Albumin Beta-Hydroxybutyrate TSH Urine Color Urine Appearance Urine pH Ur Specific [place] Urine Protein Urine Glucose (UA) Urine Ketones Urine Blood Urine Nitrite Ur Leukocyte Esterase Urine RBC Urine WBC Ur Squamous Epith Cells Urine Bacteria Hyaline Casts Urine Osmolality Ur Random Sodium Microbiology Microbiology Results: Microbiology 07/20/25 14:41 Blood - Venous Blood Culture - Preliminary No growth after 48 hours. 07/20/25 12:36 Blood - Venous Blood Culture - Preliminary No growth after 48 hours. Progress Note: A&P Assessment and plan (1) DKA (diabetic ketoacidosis): Status: Acute (2) Hypothyroid: Status: Acute (3) Acute metabolic encephalopathy: Status: Acute (4) Hypernatremia: Status: Acute Plan DKA: Ketoacidosis possibly due to combination of starvation ketoacidosis and DKA that was a little bit more difficult to control due to SGLT2 inhibitors Continue insulin drip along with D5 water, adjusted by given blood sugar checks BMP, Mag, phos q.4 hours We will feed the patient as tolerated Acute kidney injury: Possibly secondary to volume depletion Improved with volume correction, creatinine down to 1.32 today Creatinine kinase normal Hypernatremia: Secondary to significant free water deficit Urine sodium 40, urine osmolality close to 600 possibly suggestive severe volume depletion Should improve with IV fluid boluses Psychiatric illness: Continue Keppra 1g b.i.d. Continue home haloperidol, oxcarbazepine and benztropine If the patient can not take orally we will do IM haloperidol Hypothyroidism: Continue home levothyroxine Prophylaxis: Heparin, famotidine Quality Stroke Does the patient have a stroke diagnosis?: No VTE Prior VTE?: No VTE Risk Level:: Medical - moderate - high VTE Device Contraindication: Treatment Not Indicated VTE Drug Contraindication: N/A - Med Ordered
[2025-07-23 09:43] LABS: Glucose, Whole Blood 141 mg/dL (60-115)
[2025-07-23 10:27] LABS: Alanine Aminotransferase 61 U/L (0-31); Albumin Level 3.6 g/dL (3.5-5.0); Alkaline Phosphatase 135 U/L (39-117); Anion Gap 11 (12-20); Aspartate Amino Transferase 69 U/L (5-31); Blood Urea Nitrogen 29 mg/dL (9-16); Calcium 8.5 mg/dL (8.4-10.2); Carbon Dioxide 25 mmol/L (22-29); Chloride 122 mmol/L (96-108); Creatinine Clr Calc Pharmacy 52.3; Estimated Glomerular Filt Rate 41; Potassium 3.6 mmol/L (3.3-5.1); Sodium 154 mmol/L (135-145); Total Protein 6.6 g/dL (6.5-8.0)
[2025-07-23] MEDS: Insulin Regular/NS 100 UNIT/100 ML PLAST..BAG IVCONT (10:32)
[2025-07-23 10:38] LABS: Levetiracetam Keppra <2.0 mcg/mL (10.0-40.0)
[2025-07-23 10:42] LABS: Glucose, Whole Blood 159 mg/dL (60-115)
[2025-07-23 11:49] LABS: Glucose, Whole Blood 174 mg/dL (60-115)
[2025-07-23 12:39] LABS: Glucose, Whole Blood 206 mg/dL (60-115)
[2025-07-23 13:41] LABS: Glucose, Whole Blood 220 mg/dL (60-115)
[2025-07-23 14:37] LABS: Glucose, Whole Blood 209 mg/dL (60-115)
[2025-07-23 15:03] LABS: Glucose, Whole Blood 197 mg/dL (60-115)
--- NOTE | 2025-07-23 15:45 | MHC.SLORD ---
Speech Language Pathology Order Status: IT PROGRAMMER attempted bedside swallow eval x3 (previous attempts 07/21 & 07/22). Patient still not able to participate in PO trials, not opening mouth for feeding d/t catat[place]. IT PROGRAMMER called and spoke w/ nursing staff from [facility]- At baseline prior to this hospitalization, patient was reportedly on a regular texture diet with thin liquids and ate independently w/o any supervision. Nursing staff reported patient had her own food preferences (i.e. enjoyed sandwiches, but not pb&j, preferred lactose-free milk), but there were no concerns related to her swallow. Communicated w/ MD, RN, & RD via secure text patient was unable to participate in feeding & information given by nursing staff at SNF.
[2025-07-23 16:06] LABS: Glucose, Whole Blood 204 mg/dL (60-115)
--- NOTE | 2025-07-23 16:34 | PM.EVENT ---
Event Note Date of Service: 07/23/25 Event Note: Patient who was recently upgraded to the ICU for DKA, patient received IV insulin drip, D5W, with improvement of mentation, creatinine. Patient improved, and we will later be downgraded to the floors and continue management. Time Spent With Patient Time: Total time managing care of this patient today ____ minutes.
[2025-07-23] MEDS: Insulin Glargine,Hum.rec.anlog 100 UNIT/ML 10 ML VIAL 15 UNIT SUBCUT (16:50)
[2025-07-23 17:04] LABS: Glucose, Whole Blood 210 mg/dL (60-115)
[2025-07-23 17:09] LABS: Anion Gap 12 (12-20); Blood Urea Nitrogen 27 mg/dL (9-16); Calcium 8.8 mg/dL (8.4-10.2); Carbon Dioxide 24 mmol/L (22-29); Chloride 118 mmol/L (96-108); Creatinine Clr Calc Pharmacy 52.3; Estimated Glomerular Filt Rate 41; Potassium 3.6 mmol/L (3.3-5.1); Sodium 150 mmol/L (135-145)
--- NOTE | 2025-07-23 17:51 | PC.NURSE ---
assumed care of patient at 0700. pt initially minimally verbal and not responsive to verbal commands. Pt now able to vocalize needs and is alert to self only. patient verbalized SIDr guevara informed, 1:1 sitter placed. pt transitioned to sub q insulin at approximately 16:50. Insulin drip discontinued per OCT. Per Dr. Guevara, D5W continued due to hypernatremia patient passed nursing bedside swallow. patient now taking sips of fluids. staley cath removed at approximately 17:50. due to void at 23:50. awaiting transfer to [facility].
--- NOTE | 2025-07-23 18:04 | PC.NURSE ---
per Dr. Dimas BRADFORD TL to stay in place upon transfer due to inability to obtain peripheral IV access.
[2025-07-23 22:22] LABS: Glucose, Whole Blood 331 mg/dL (60-115)
[2025-07-24 00:25] LABS: Anion Gap 11 (12-20); Blood Urea Nitrogen 22 mg/dL (9-16); Calcium 8.0 mg/dL (8.4-10.2); Carbon Dioxide 23 mmol/L (22-29); Chloride 115 mmol/L (96-108); Creatinine Clr Calc Pharmacy 62.0; Estimated Glomerular Filt Rate 50; Potassium 3.0 mmol/L (3.3-5.1); Sodium 146 mmol/L (135-145)
[2025-07-24] MEDS: Potassium Chloride Packet 20 MEQ PACKET 40 MEQ PO ×3 (01:51→19:47)
[2025-07-24 03:20] VITALS: BP 157/72; PULSE 79; RESP 16; TEMP 36.7; O2SAT 98
[2025-07-24 06:00] VITALS: BMI 27.9
[2025-07-24 07:15] LABS: Glucose, Whole Blood 214 mg/dL (60-115)
[2025-07-24 07:58] VITALS: BP 155/88; PULSE 79; RESP 16; TEMP 37.4; O2SAT 99
[2025-07-24] MEDS: levETIRAcetam in NaCl (iso-os) 500 MG/100 ML PIGGYBACK 400 MG IV ×2 (08:25→19:49)
--- NOTE | 2025-07-24 10:36 | HO.PM.IMPN ---
Subjective Subjective Date of Service: 07/24/25 Interval History: Patient seen examined at bedside this morning, patient downgraded yesterday from the ICU for DKA, this time alert, talking, mentioned that she wishes to have a regular diet. Sodium 146, potassium 3. Patient with sitter in place as she threatened to kill herself yesterday in the ICU. Review of Systems Review of Systems: Yes all other systems are reviewed and are negative Physical Exam Exam: Exam: General: Alert, ill appearing Head: AT/NC ENT: Dry mucous membranes Neck: supple, right central line in place CVS; RRR, S1 S2 normal Lungs: Clear bilateral breath sounds, no wheezes or crackles Abd: Soft non tender, non distended Ext: No edema and no calf tenderness, Left upper extremity mass? MSK: moving all 4 limbs Skin: No cyanosis or edema Psych: cooperative Neurology: does not follow commands Vital Signs: Vital Signs: Last Vital Signs Temp 99.4 F 07/24/25 07:58 Pulse 79 07/24/25 07:58 Resp 16 07/24/25 07:58 BP 155/88 H 07/24/25 07:58 Pulse Ox 99 07/24/25 07:58 O2 Del Method Room Air 07/24/25 07:58 BMI result Body Mass Index 27.9 Objective Data Active Medications Acetaminophen (Acetaminophen 325 Mg Tablet) 650 mg PO Q6H PRN PRN Reason: Pain, Mild 1-3,fever,headache Benztropine Mesylate (Benztropine Mesylate 1 Mg Tablet) 1 mg PO BID [facility] Last Admin: 07/24/25 08:36 Dose: 1 mg Documented By: JOSÉ Dextrose (Dextrose 50 % 25 Gm/50 Ml Syringe) 25 gm IVPUSH Q15M PRN; Protocol PRN Reason: per Hypoglycemia Standing Ord. Dextrose (Dextrose 50 % 25 Gm/50 Ml Syringe) 25 gm IVPUSH Q15M PRN; Protocol PRN Reason: per Hypoglycemia Standing Ord. Glucose (Glucose Gel 15 Gm Gel..Gram.) 15 gm PO Q15M PRN; Protocol PRN Reason: per Hypoglycemia Standing Ord. Glucose (Glucose Gel 15 Gm Gel..Gram.) 15 gm PO Q15M PRN; Protocol PRN Reason: per Hypoglycemia Standing Ord. Haloperidol (Haloperidol 5 Mg Tablet) 5 mg PO BID [facility] Last Admin: 07/24/25 08:36 Dose: 5 mg Documented By: JOSÉ Heparin Sodium (Porcine) (Heparin Sodium,Porcine 5,000 Unit/Ml Vial) 5,000 unit SUBCUT Q12H [facility] Last Admin: 07/24/25 03:21 Dose: 5,000 unit Documented By: NILSON Hydralazine HCl (Hydralazine Hcl 20 Mg/Ml Vial) 10 mg IVPUSH Q6H PRN; Protocol PRN Reason: SBP > 160 Last Admin: 07/23/25 10:35 Dose: 10 mg Documented By: ODIN Hydroxyzine HCl (Hydroxyzine Hcl 25 Mg Tablet) 25 mg PO BID [facility] Last Admin: 07/24/25 08:36 Dose: 25 mg Documented By: JOSÉ Levetiracetam (Keppra) 500 mg in 100 mls @ 400 mls/hr IV Q12H [facility] Last Infusion: 07/24/25 08:40 Dose: Infused Documented By: JOSÉ Ceftriaxone Sodium 2 gm/ (Sodium Chloride) 50 mls @ 100 mls/hr IV Q24H [facility] Last Infusion: 07/24/25 09:10 Dose: Infused Documented By: JOSÉ Dextrose (D5w) 1,000 mls @ 150 mls/hr IVCONT .Q6H40M [facility] Last Admin: 07/24/25 06:09 Dose: Not Given Documented By: NILSON Non-Admin Reason: Physician Held Med Insulin Human Lispro (Insulin Lispro 100 Unit/Ml 3 Ml Vial) 0 unit SUBCUT QIDACHS [facility]; Protocol Stop: 07/24/25 16:33 Last Admin: 07/24/25 08:24 Dose: 4 unit Documented By: JOSÉ Levothyroxine Sodium (Levothyroxine Sodium 100 Mcg Tablet) 100 mcg PO DAILY@0600 [facility] Last Admin: 07/24/25 06:12 Dose: 100 mcg Documented By: NILSON Ondansetron HCl (Ondansetron Hcl 4 Mg/2 Ml Vial) 4 mg IVPUSH Q8H PRN PRN Reason: Nausea and Vomiting Oxcarbazepine (Oxcarbazepine 150 Mg Tablet) 150 mg PO DAILY [facility] Last Admin: 07/24/25 08:36 Dose: 150 mg Documented By: JOSÉ Oxcarbazepine (Oxcarbazepine 300 Mg Tablet) 300 mg PO BEDTIME [facility] Last Admin: 07/23/25 23:29 Dose: Not Given Documented By: NILSON Non-Admin Reason: NPO Potassium Chloride (Potassium Chloride Packet 20 Meq Packet) 40 meq PO BID [facility] Stop: 07/24/25 21:01 Last Admin: 07/24/25 08:50 Dose: 40 meq Documented By: JOSÉ Labs 07/23/25 05:17 07/24/25 00:06 Labs: Laboratory Results - last 24 hr 07/20/25 07/23/25 07/23/25 12:29 10:39 11:43 Anion Gap Estim Creat Clear Calc Estimated GFR POC Glucose 159 H 174 H Random Glucose Calcium Phosphorus Beta-Hydroxybutyrate Urine Osmolality Ur Random Sodium Levetiracetam <2.0 L 07/23/25 07/23/25 07/23/25 12:36 13:37 13:50 Anion Gap Estim Creat Clear Calc Estimated GFR POC Glucose 206 H 220 H Random Glucose Calcium Phosphorus Beta-Hydroxybutyrate Urine Osmolality 706 Ur Random Sodium 21.0 Levetiracetam 07/23/25 07/23/25 07/23/25 14:33 14:37 14:59 Anion Gap 12 Estim Creat Clear Calc 52.3 Estimated GFR 41 POC Glucose 209 H 197 H Random Glucose 222 H Calcium 8.8 Phosphorus 2.3 L Beta-Hydroxybutyrate 0.29 H Urine Osmolality Ur Random Sodium Levetiracetam 07/23/25 07/23/25 07/23/25 16:03 17:00 22:18 Anion Gap Estim Creat Clear Calc Estimated GFR POC Glucose 204 H 210 H 331 H Random Glucose Calcium Phosphorus Beta-Hydroxybutyrate Urine Osmolality Ur Random Sodium Levetiracetam 07/24/25 07/24/25 00:06 07:10 Anion Gap 11 L Estim Creat Clear Calc 62.0 Estimated GFR 50 POC Glucose 214 H Random Glucose 298 H Calcium 8.0 L D Phosphorus Beta-Hydroxybutyrate Urine Osmolality Ur Random Sodium Levetiracetam Assessment and Plan (1) Acute metabolic encephalopathy: Status: Acute Plan Assessment: 54-year-old female with history of TBI, dementia, seizure disorder, SAH, GERD, T2 dm, HTN, HLD, hypothyroidism and recurrent UTIs who presented from [facility] for encephalopathy. On initial ED workup, with hyperglycemia, ketosis, hypernatremia and normal anion gap with normal bicarbonate. Patient treated with IV fluids, however persisted with elevated glucose, ketones, anion gap. Transferred to ICU on 07/22 for insulin drip for suspected DKA. Downgraded on 07/23, after being on insulin drip and receiving IV fluids. Patient alert and requesting food at this time. Toxic Metabolic encephalopathy, likely multifactorial DKA, resolved after IVf given and insulin drip Labs reviewed, continue insulin, regular diet Nephrology following Acute Hypernatremia. likely 2/2 decrease oral intake, improving IVf discontinued Nephrology consulted follow BMP T2DM hold jardiance and metformin SSI, continue Insulin Seizure disorder -Continue seizure medications -Neurology consulted MARIBEL on CKD3 BUN:Cr > 20 , likely prerenal Continue IVF and monitor U\O and BMP HLD, chronic statin mood disorder benztropine,haldol, hydroxyzine, patient referred suicide ideations, continue with sitter, psychiatry consulted Hypothyroid, chronic levothyroxine DVT PPx: Heparin Code status: Full code Total time managing care of this patient today: 55 minutes. Quality Stroke Does the patient have a stroke diagnosis?: No VTE Prior VTE?: No VTE Risk Level:: Medical - moderate - high VTE Device Contraindication: Treatment Not Indicated VTE Drug Contraindication: N/A - Med Ordered
[2025-07-24 11:34] LABS: Glucose, Whole Blood 202 mg/dL (60-115)
[2025-07-24 12:00] VITALS: BP 157/77; PULSE 71; RESP 18; TEMP 37.1; O2SAT 100
--- NOTE | 2025-07-24 12:11 | PM.PNNEP ---
Subjective Subjective Date of Service: 07/24/25 Interval history: Labs better, sodium 146, creatinine down to 1.13 Mental status same as yesterday Physical Exam Vital Signs: Vital Signs: Last Vital Signs Temp 98.7 F 07/24/25 12:00 Pulse 71 07/24/25 12:00 Resp 18 07/24/25 12:00 BP 157/77 H 07/24/25 12:00 Pulse Ox 100 07/24/25 12:00 O2 Del Method Room Air 07/24/25 12:00 BMI result Body Mass Index 27.9 General: not in any acute distress, ill appearing Nutritional Appearance: well nourished and overweight Eyes: appearance normal, both eyes and all related structures; Alignment and Position: alignment normal and position normal Neck: No lymphadenopathy, no thyromegaly Resp: bilateral air entry equal, no added sounds present Cardio: Regular rate, regular rhythm; normal S1-S2 GI: soft, nontender, no guarding, no hepatosplenomegaly : bladder normal to inspection, bladder normal to palpation, no renal angle tenderness Skin: no rashes or lesions noted and elasticity normal Neuro: Looks at you but, decreased speech, moves all extremities Objective Data Labs 07/23/25 05:17 07/24/25 00:06 Labs: Laboratory Results - last 24 hr 07/23/25 07/23/25 07/23/25 12:36 13:37 13:50 Sodium Potassium Chloride Carbon Dioxide Anion Gap BUN Creatinine Estim Creat Clear Calc Estimated GFR POC Glucose 206 H 220 H Random Glucose Calcium Phosphorus Beta-Hydroxybutyrate Urine Osmolality 706 Ur Random Sodium 21.0 07/23/25 07/23/25 07/23/25 14:33 14:37 14:59 Sodium 150 H Potassium 3.6 Chloride 118 H Carbon Dioxide 24 Anion Gap 12 BUN 27 H Creatinine 1.34 Estim Creat Clear Calc 52.3 Estimated GFR 41 POC Glucose 209 H 197 H Random Glucose 222 H Calcium 8.8 Phosphorus 2.3 L Beta-Hydroxybutyrate 0.29 H Urine Osmolality Ur Random Sodium 07/23/25 07/23/25 07/23/25 16:03 17:00 22:18 Sodium Potassium Chloride Carbon Dioxide Anion Gap BUN Creatinine Estim Creat Clear Calc Estimated GFR POC Glucose 204 H 210 H 331 H Random Glucose Calcium Phosphorus Beta-Hydroxybutyrate Urine Osmolality Ur Random Sodium 12/02/1007/24/25 07/24/25 00:06 07:10 11:16 Sodium 146 H Potassium 3.0 L Chloride 115 H Carbon Dioxide 23 Anion Gap 11 L BUN 22 H Creatinine 1.13 Estim Creat Clear Calc 62.0 Estimated GFR 50 POC Glucose 214 H 202 H Random Glucose 298 H Calcium 8.0 L D Phosphorus Beta-Hydroxybutyrate Urine Osmolality Ur Random Sodium Microbiology Microbiology Results: Microbiology 07/22/25 13:11 Urine clean catch - Clean Catch Midstream Urine Culture - Preliminary Gram negative jamie 07/20/25 14:41 Blood - Venous Blood Culture - Preliminary No growth after 48 hours. 07/20/25 12:36 Blood - Venous Blood Culture - Preliminary No growth after 48 hours. Procedures Date of Service Date of Service: 07/24/25 Assessment & Plan Assessment and plan (1) Acute hypernatremia: Status: Acute (2) DKA (diabetic ketoacidosis): Status: Acute (3) Acute metabolic encephalopathy: Status: Acute Plan Acute kidney injury: Resolved, secondary to volume depletion Improved with volume correction, creatinine down to 1.13 today Creatinine kinase normal Hypernatremia: Secondary to significant free water deficit Improved with D5 water, down to 146 this morning Can . D5 water and encourage oral fluid intake Psychiatric illness: Continue Keppra 1g b.i.d. Continue home haloperidol, oxcarbazepine and benztropine If the patient can not take orally IM haloperidol Recommend psych consult, possibly inpatient psych transfer Hypothyroidism: Continue home levothyroxine Time Spent With Patient Time: Total time managing care of this patient today ____ minutes. Progress Note: Quality Stroke Does the patient have a stroke diagnosis?: No
[2025-07-24 15:40] VITALS: BP 143/72; PULSE 71; RESP 18; TEMP 36.5; O2SAT 100
[2025-07-24 16:16] LABS: Glucose, Whole Blood 217 mg/dL (60-115)
[2025-07-24 20:00] VITALS: BP 138/65; PULSE 82; RESP 18; TEMP 36; O2SAT 100
[2025-07-24 20:40] LABS: Glucose, Whole Blood 234 mg/dL (60-115)
[2025-07-24 23:08] VITALS: BP 143/69; PULSE 78; RESP 16; TEMP 36.4; O2SAT 99
[2025-07-25] VITALS (7 sets, daily range): BP systolic 130–164; BP diastolic 62–79; PULSE 61–73; RESP 16–18; TEMP 35.9–37.2; O2SAT 98–100; BMI 28.2; BMI 28.9
[2025-07-25 07:29] LABS: Glucose, Whole Blood 188 mg/dL (60-115)
[2025-07-25] MEDS: levETIRAcetam in NaCl (iso-os) 500 MG/100 ML PIGGYBACK 400 MG IV ×2 (07:43→19:43)
[2025-07-25 08:48] LABS: MANUAL DIFF FLAG NO
[2025-07-25 08:54] LABS: Hematocrit 29.5 % (37.0-47.0); Hemoglobin 9.3 g/dl (12.0-16.0); Imm Gran Abs Auto 0.03 X10*3/uL (0.00-0.03); Imm Gran Pct Auto 0.6 % (0.0-0.4); Lymphocytes Absolute Auto 1.1 X10*3/uL (1.2-4.9); Mean Corpuscular HGB Conc 31.5 g/dl (31.0-35.0); Mean Corpuscular Hemoglobin 28.3 pg (27.0-33.0); Mean Corpuscular Volume 89.7 fL (80.0-98.0); NRBC Abs Auto 0.000 X10*3/uL (0.0-0.012); NRBC Pct Auto 0.0 /100WBC (0.0-0.2); Platelet Count 117 X10*3/uL (160-400); Red Blood Count 3.29 X10*6/uL (4.20-5.50); White Blood Count 5.1 X10*3/uL (4.8-10.8)
[2025-07-25 09:09] LABS: Alanine Aminotransferase 58 U/L (0-31); Albumin Level 2.9 g/dL (3.5-5.0); Alkaline Phosphatase 132 U/L (39-117); Anion Gap 9 (12-20); Aspartate Amino Transferase 64 U/L (5-31); Blood Urea Nitrogen 16 mg/dL (9-16); Calcium 8.2 mg/dL (8.4-10.2); Carbon Dioxide 23 mmol/L (22-29); Chloride 113 mmol/L (96-108); Creatinine Clr Calc Pharmacy 78.5; Estimated Glomerular Filt Rate > 60; Potassium 3.5 mmol/L (3.3-5.1); Sodium 141 mmol/L (135-145); Total Protein 5.7 g/dL (6.5-8.0)
--- NOTE | 2025-07-25 09:50 | HO.PM.IMPN ---
Subjective Subjective Date of Service: 07/25/25 Interval History: Patient seen examined at bedside this morning, alert only to self, patient will respond by nodding head yes and no. Right central line in place Review of Systems Review of Systems: Yes all other systems are reviewed and are negative Physical Exam Exam: Exam: General: Alert, ill appearing Head: AT/NC ENT: Dry mucous membranes Neck: supple, right central line in place CVS; RRR, S1 S2 normal Lungs: Clear bilateral breath sounds, no wheezes or crackles Abd: Soft non tender, non distended Ext: No edema and no calf tenderness MSK: moving all 4 limbs Skin: No cyanosis or edema Psych: cooperative Neurology: does not follow commands Vital Signs: Vital Signs: Last Vital Signs Temp 97.0 F 07/25/25 07:26 Pulse 72 07/25/25 07:26 Resp 18 07/25/25 07:26 BP 155/73 H 07/25/25 07:26 Pulse Ox 98 07/25/25 07:26 O2 Del Method Room Air 07/25/25 07:26 BMI result Body Mass Index 28.2 Objective Data Active Medications Acetaminophen (Acetaminophen 325 Mg Tablet) 650 mg PO Q6H PRN PRN Reason: Pain, Mild 1-3,fever,headache Benztropine Mesylate (Benztropine Mesylate 1 Mg Tablet) 1 mg PO BID [facility] Last Admin: 07/25/25 08:00 Dose: 1 mg Documented By: ELVIA Dextrose (Dextrose 50 % 25 Gm/50 Ml Syringe) 25 gm IVPUSH Q15M PRN; Protocol PRN Reason: per Hypoglycemia Standing Ord. Dextrose (Dextrose 50 % 25 Gm/50 Ml Syringe) 25 gm IVPUSH Q15M PRN; Protocol PRN Reason: per Hypoglycemia Standing Ord. Dextrose (Dextrose 50 % 25 Gm/50 Ml Syringe) 25 gm IVPUSH Q15M PRN; Protocol PRN Reason: per Hypoglycemia Standing Ord. Glucose (Glucose Gel 15 Gm Gel..Gram.) 15 gm PO Q15M PRN; Protocol PRN Reason: per Hypoglycemia Standing Ord. Glucose (Glucose Gel 15 Gm Gel..Gram.) 15 gm PO Q15M PRN; Protocol PRN Reason: per Hypoglycemia Standing Ord. Glucose (Glucose Gel 15 Gm Gel..Gram.) 15 gm PO Q15M PRN; Protocol PRN Reason: per Hypoglycemia Standing Ord. Haloperidol (Haloperidol 5 Mg Tablet) 5 mg PO BID [facility] Last Admin: 07/25/25 08:00 Dose: 5 mg Documented By: ELVIA Heparin Sodium (Porcine) (Heparin Sodium,Porcine 5,000 Unit/Ml Vial) 5,000 unit SUBCUT Q12H [facility] Last Admin: 07/25/25 02:51 Dose: 5,000 unit Documented By: PHAN Hydralazine HCl (Hydralazine Hcl 20 Mg/Ml Vial) 10 mg IVPUSH Q6H PRN; Protocol PRN Reason: SBP > 160 Last Admin: 07/23/25 10:35 Dose: 10 mg Documented By: ODIN Hydroxyzine HCl (Hydroxyzine Hcl 25 Mg Tablet) 25 mg PO BID [facility] Last Admin: 07/25/25 08:00 Dose: 25 mg Documented By: ELVIA Levetiracetam (Keppra) 500 mg in 100 mls @ 400 mls/hr IV Q12H [facility] Last Infusion: 07/25/25 07:59 Dose: Infused Documented By: ELVIA Ceftriaxone Sodium 2 gm/ (Sodium Chloride) 50 mls @ 100 mls/hr IV Q24H [facility] Last Infusion: 07/25/25 08:34 Dose: Infused Documented By: ELVIA Insulin Human Lispro (Insulin Lispro 100 Unit/Ml 3 Ml Vial) 0 unit SUBCUT QIDACHS [facility]; Protocol Last Admin: 07/25/25 07:45 Dose: 2 unit Documented By: ELVIA Levothyroxine Sodium (Levothyroxine Sodium 100 Mcg Tablet) 100 mcg PO DAILY@0600 [facility] Last Admin: 07/25/25 05:17 Dose: 100 mcg Documented By: PHAN Ondansetron HCl (Ondansetron Hcl 4 Mg/2 Ml Vial) 4 mg IVPUSH Q8H PRN PRN Reason: Nausea and Vomiting Oxcarbazepine (Oxcarbazepine 150 Mg Tablet) 150 mg PO DAILY [facility] Last Admin: 07/25/25 08:00 Dose: 150 mg Documented By: ELVIA Oxcarbazepine (Oxcarbazepine 300 Mg Tablet) 300 mg PO BEDTIME [facility] Last Admin: 07/24/25 20:00 Dose: Not Given Documented By: PHAN Non-Admin Reason: NPO Labs 07/25/25 08:32 07/25/25 08:32 Labs: Laboratory Results - last 24 hr 07/24/25 07/24/25 07/24/25 11:16 16:10 20:35 MCV MCH MCHC RDW Plt Count MPV Immature Gran % (Auto) Neut % (Auto) Lymph % (Auto) [place] % (Auto) Eos % (Auto) Baso % (Auto) Lymph # (Auto) [place] # (Auto) Eos # (Auto) Baso # (Auto) Abs Immat Gran (auto) Absolute Neuts (auto) Absolute Nucleated RBC Nucleated RBC % (auto) Anion Gap Estim Creat Clear Calc Estimated GFR POC Glucose 202 H 217 H 234 H Random Glucose Calcium Total Bilirubin AST ALT Alkaline Phosphatase Total Protein Albumin 07/25/25 07/25/25 07:25 08:32 MCV 89.7 MCH 28.3 MCHC 31.5 RDW 13.9 Plt Count 117 L MPV 9.9 Immature Gran % (Auto) 0.6 H Neut % (Auto) 69.5 Lymph % (Auto) 21.8 [place] % (Auto) 6.9 Eos % (Auto) 1.0 Baso % (Auto) 0.2 Lymph # (Auto) 1.1 L [place] # (Auto) 0.4 Eos # (Auto) 0.1 Baso # (Auto) 0.0 Abs Immat Gran (auto) 0.03 Absolute Neuts (auto) 3.5 Absolute Nucleated RBC 0.000 Nucleated RBC % (auto) 0.0 Anion Gap 9 L Estim Creat Clear Calc 78.5 Estimated GFR > 60 POC Glucose 188 H Random Glucose 230 H Calcium 8.2 L Total Bilirubin 0.1 AST 64 H ALT 58 H Alkaline Phosphatase 132 H Total Protein 5.7 L Albumin 2.9 L Microbiology Microbiology Results: Microbiology 07/22/25 13:11 Urine Culture - Final Urine clean catch - Clean Catch Midstream Escherichia coli Assessment and Plan (1) Acute metabolic encephalopathy: Status: Acute Plan Assessment: 54-year-old female with history of TBI, dementia, seizure disorder, SAH, GERD, T2 dm, HTN, HLD, hypothyroidism and recurrent UTIs who presented from [facility] for encephalopathy. On initial ED workup, with hyperglycemia, ketosis, hypernatremia and normal anion gap with normal bicarbonate. Patient treated with IV fluids, however persisted with elevated glucose, ketones, anion gap. Transferred to ICU on 07/22 for insulin drip for suspected DKA. Downgraded on 07/23, after being on insulin drip and receiving IV fluids. Toxic Metabolic encephalopathy, likely multifactorial, improving DKA, resolved after IVf given and insulin drip UTI with culture positive for E coli Labs and imaging reviewed continue insulin, regular diet Continue with rocephin for a total of 7 days Nephrology following Acute Hypernatremia. likely 2/2 decrease oral intake, resolved IVf discontinued follow BMP T2DM hold jardiance and metformin SSI, continue Insulin Seizure disorder -Continue seizure medications -Neurology consulted MARIBEL on CKD3 BUN:Cr > 20 , likely prerenal Continue IVF and monitor U\O and BMP HLD, chronic statin mood disorder benztropine,haldol, hydroxyzine, patient referred suicide ideations, continue with sitter, psychiatry consulted Hypothyroid, chronic levothyroxine DVT PPx: Heparin Code status: Full code Total time managing care of this patient today: 55 minutes. Quality Stroke Does the patient have a stroke diagnosis?: No VTE Prior VTE?: No VTE Risk Level:: Medical - moderate - high VTE Device Contraindication: Treatment Not Indicated VTE Drug Contraindication: N/A - Med Ordered
[2025-07-25 11:59] LABS: Glucose, Whole Blood 189 mg/dL (60-115)
--- NOTE | 2025-07-25 12:54 | P.CNPS_ITS ---
History of Present Illness Date of Service: 07/25/2025 Chief Complaint: altered mentation Reason for Consult: Pt told team on 07/23 she wanted to kill herself. One to one in place. Requesting physician: Gopi Cabrera Sources of Information: patient interviewed and chart reviewed Additional Sources of Information: [facility] [phone]- encouraged to call on 07/26 when pt's regular team is available to discuss her care. Pt reports two children, one in [place], one in [place] and does not believe they need to be called. Will confirm with [facility] HPI Narrative: 54 yo female, resident of [facility] [place], to ER on 07/20 with elevated glucose and altered mental status. Pt has a history of TBI, Dementia, Seizure Disorder (using Keppra, Dilantin, Trileptal), SAH, DM, HTN, HLD, Hypothyroid. Psychiatric hx of mood disorder and anxiety. 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 Team found CT wnl, no sepsis, hypernatremia, MARIBEL, acute metabolic encephalopathy. Admitted medically for treatment as she presented in a catatonic like state in the ER and was not able to respond. On 07/23 team reports she told them she wanted to kill herself. Met with pt who is awake, in bed, having seen provider earlier and was not very talkative. She was soft-spoken with paucity. Discussed how she was feeling. She spoke of loss of eyesight tearfully. She reports she believes this has limited her quality of life after her visual loss and stated I cannot go, do as I want . She reports conflicts at [facility] due to how I am cleaned and wants to return there to continue to sort through this conflict. She reports pain-intermittent abdominal, and pain in her IV. She reports she has two children, one in [place] and one in [place] along with three grandchildren and a cousin in [place] whom she is looking foreward to visiting with. When asked about safety and her statement regarding being suicidal, she denies this, I would never leave my family. Past Psychiatric History: Mood disorder Hx of therapy and psychiatry years ago, not currently. Review of Systems Review of Systems Intermittent abdominal pain IV site pain [facility] Medical History (Updated 07/25/25 @ 17:18 by Jennifer M Alexis-Wonkka, FILM MOUNTER) Avulsed tooth Seizure Adjustment reaction with mixed disturbance of emotions and conduct Anxiety Mood disorder Leiomyoma of body of uterus Preglaucoma Presbyopia UTI (urinary tract infection) Hypothermia Long QT syndrome Sepsis COVID-19 Cystitis Hyperkalemia ESBL (extended spectrum beta-lactamase) producing bacteria infection Essential (primary) hypertension Diabetic retinopathy Anxiety Mood disorder Dementia Subarachnoid hemorrhage following injury TBI (traumatic brain injury) Unspecified dementia with behavioral disturbance Seizure disorder Hypothyroid Hyperlipidemia Diabetes Surgical History Hx of tubal ligation Family History: not asked. Social History: Extended family is local. 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 Substance History: Denies Trauma History: Affirms Diagnostics Vital Signs (24Hr): Vital Signs - 24 hr 07/24/25 15:40 07/24/25 20:00 07/24/25 23:08 Temperature 97.7 F 96.8 F 97.6 F Pulse Rate 71 82 78 Respiratory Rate 18 18 16 Blood Pressure 143/72 H 138/65 143/69 H Pulse Oximetry 100 100 99 Oxygen Delivery Method Room Air Room Air Room Air 07/25/25 03:18 07/25/25 07:26 07/25/25 11:41 Temperature 99 F 97.0 F 97.6 F Pulse Rate 69 72 66 Respiratory Rate 16 18 18 Blood Pressure 164/78 H 155/73 H 150/72 H Pulse Oximetry 100 98 100 Oxygen Delivery Method Room Air Room Air Room Air 07/25/25 12:49 Temperature 97.4 F Pulse Rate 61 Respiratory Rate 18 Blood Pressure 135/79 Pulse Oximetry 98 Oxygen Delivery Method Room Air BMI result Body Mass Index 28.2 Labs 07/25/25 08:32 07/25/25 08:32 Labs: Laboratory Results - last 48 hr 07/23/25 07/23/25 07/23/25 13:37 13:50 14:33 WBC RBC Hgb Hct MCV MCH MCHC RDW Plt Count MPV Immature Gran % (Auto) Neut % (Auto) Lymph % (Auto) [place] % (Auto) Eos % (Auto) Baso % (Auto) Lymph # (Auto) [place] # (Auto) Eos # (Auto) Baso # (Auto) Abs Immat Gran (auto) Absolute Neuts (auto) Absolute Nucleated RBC Nucleated RBC % (auto) Sodium Potassium Chloride Carbon Dioxide Anion Gap BUN Creatinine Estim Creat Clear Calc Estimated GFR POC Glucose 220 H 209 H Random Glucose Calcium Phosphorus Total Bilirubin AST ALT Alkaline Phosphatase Total Protein Albumin Beta-Hydroxybutyrate Urine Osmolality 706 Ur Random Sodium 21.0 07/23/25 07/23/25 07/23/25 14:37 14:59 16:03 WBC RBC Hgb Hct MCV MCH MCHC RDW Plt Count MPV Immature Gran % (Auto) Neut % (Auto) Lymph % (Auto) [place] % (Auto) Eos % (Auto) Baso % (Auto) Lymph # (Auto) [place] # (Auto) Eos # (Auto) Baso # (Auto) Abs Immat Gran (auto) Absolute Neuts (auto) Absolute Nucleated RBC Nucleated RBC % (auto) Sodium 150 H Potassium 3.6 Chloride 118 H Carbon Dioxide 24 Anion Gap 12 BUN 27 H Creatinine 1.34 Estim Creat Clear Calc 52.3 Estimated GFR 41 POC Glucose 197 H 204 H Random Glucose 222 H Calcium 8.8 Phosphorus 2.3 L Total Bilirubin AST ALT Alkaline Phosphatase Total Protein Albumin Beta-Hydroxybutyrate 0.29 H Urine Osmolality Ur Random Sodium 07/23/25 07/23/25 07/24/25 17:00 22:18 00:06 WBC RBC Hgb Hct MCV MCH MCHC RDW Plt Count MPV Immature Gran % (Auto) Neut % (Auto) Lymph % (Auto) [place] % (Auto) Eos % (Auto) Baso % (Auto) Lymph # (Auto) [place] # (Auto) Eos # (Auto) Baso # (Auto) Abs Immat Gran (auto) Absolute Neuts (auto) Absolute Nucleated RBC Nucleated RBC % (auto) Sodium 146 H Potassium 3.0 L Chloride 115 H Carbon Dioxide 23 Anion Gap 11 L BUN 22 H Creatinine 1.13 Estim Creat Clear Calc 62.0 Estimated GFR 50 POC Glucose 210 H 331 H Random Glucose 298 H Calcium 8.0 L D Phosphorus Total Bilirubin AST ALT Alkaline Phosphatase Total Protein Albumin Beta-Hydroxybutyrate Urine Osmolality Ur Random Sodium 07/24/25 07/24/25 07/24/25 07:10 11:16 16:10 WBC RBC Hgb Hct MCV MCH MCHC RDW Plt Count MPV Immature Gran % (Auto) Neut % (Auto) Lymph % (Auto) [place] % (Auto) Eos % (Auto) Baso % (Auto) Lymph # (Auto) [place] # (Auto) Eos # (Auto) Baso # (Auto) Abs Immat Gran (auto) Absolute Neuts (auto) Absolute Nucleated RBC Nucleated RBC % (auto) Sodium Potassium Chloride Carbon Dioxide Anion Gap BUN Creatinine Estim Creat Clear Calc Estimated GFR POC Glucose 214 H 202 H 217 H Random Glucose Calcium Phosphorus Total Bilirubin AST ALT Alkaline Phosphatase Total Protein Albumin Beta-Hydroxybutyrate Urine Osmolality Ur Random Sodium 07/24/25 07/25/25 07/25/25 20:35 07:25 08:32 WBC 5.1 RBC 3.29 L Hgb 9.3 L Hct 29.5 L MCV 89.7 MCH 28.3 MCHC 31.5 RDW 13.9 Plt Count 117 L MPV 9.9 Immature Gran % (Auto) 0.6 H Neut % (Auto) 69.5 Lymph % (Auto) 21.8 [place] % (Auto) 6.9 Eos % (Auto) 1.0 Baso % (Auto) 0.2 Lymph # (Auto) 1.1 L [place] # (Auto) 0.4 Eos # (Auto) 0.1 Baso # (Auto) 0.0 Abs Immat Gran (auto) 0.03 Absolute Neuts (auto) 3.5 Absolute Nucleated RBC 0.000 Nucleated RBC % (auto) 0.0 Sodium 141 Potassium 3.5 Chloride 113 H Carbon Dioxide 23 Anion Gap 9 L BUN 16 Creatinine 0.92 Estim Creat Clear Calc 78.5 Estimated GFR > 60 POC Glucose 234 H 188 H Random Glucose 230 H Calcium 8.2 L Phosphorus 2.9 Total Bilirubin 0.1 AST 64 H ALT 58 H Alkaline Phosphatase 132 H Total Protein 5.7 L Albumin 2.9 L Beta-Hydroxybutyrate Urine Osmolality Ur Random Sodium 07/25/25 11:48 WBC RBC Hgb Hct MCV MCH MCHC RDW Plt Count MPV Immature Gran % (Auto) Neut % (Auto) Lymph % (Auto) [place] % (Auto) Eos % (Auto) Baso % (Auto) Lymph # (Auto) [place] # (Auto) Eos # (Auto) Baso # (Auto) Abs Immat Gran (auto) Absolute Neuts (auto) Absolute Nucleated RBC Nucleated RBC % (auto) Sodium Potassium Chloride Carbon Dioxide Anion Gap BUN Creatinine Estim Creat Clear Calc Estimated GFR POC Glucose 189 H Random Glucose Calcium Phosphorus Total Bilirubin AST ALT Alkaline Phosphatase Total Protein Albumin Beta-Hydroxybutyrate Urine Osmolality Ur Random Sodium Imaging Radiology Impressions: ITS Impressions Chest X-Ray 07/20/25 12:40 IMPRESSION: No acute disease. Electronically signed by: Marcelino Ray MD 07/20/2025 12:49 PM EST RP Head CT 07/20/25 12:54 IMPRESSION: No acute intracranial hemorrhage or acute brain abnormality by CT. Electronically signed by: Luiz Espinoza MD 07/20/2025 01:11 PM EST RP Venous Duplex 07/23/25 09:35 IMPRESSION: 1. No evidence of deep venous thrombosis involving the left upper extremity. 2. No sonographic abnormality in the left upper lateral arm, in the area of concern. Electronically signed by: Pramod Black MD 07/23/2025 10:27 AM EST RP Mental Status Exam Mental Status Exam Patient Appearance: Fatigued Patient Orientation: Person, Place (hospital) and Situation ( pain ) Level of Consciousness: Alert Patient Behavior: Talkative, Passive, Fatigued, Confused and Good Eye Contact Mood Description: Withdrawn and Sad Affect Description: Flat Patient Cognition Impaired: Yes Ability to Follow Directions: Fair Speech Pattern: Spontaneous Speech and Soft-Spoken Memory Description: Remote Impaired Hallucinations: None (denies) Thought Process: Rumination and Confusion Thought Content: positive for [place], positive for Circumstantial and positive for Suicidal Ideation (denies) Depressive Symptoms: Thoughts of /Suicide (denies) Abnormal Motor Activity Signs and Symptoms: Psychomotor Retardation Judgement: Poor Medications Medications Current Medications Acetaminophen (Acetaminophen 325 Mg Tablet) 650 mg PO Q6H PRN PRN Reason: Pain, Mild 1-3,fever,headache Benztropine Mesylate (Benztropine Mesylate 1 Mg Tablet) 1 mg PO BID [facility] Last Admin: 07/25/25 08:00 Dose: 1 mg Dextrose (Dextrose 50 % 25 Gm/50 Ml Syringe) 25 gm IVPUSH Q15M PRN; Protocol PRN Reason: per Hypoglycemia Standing Ord. Glucose (Glucose Gel 15 Gm Gel..Gram.) 15 gm PO Q15M PRN; Protocol PRN Reason: per Hypoglycemia Standing Ord. Haloperidol (Haloperidol 5 Mg Tablet) 5 mg PO BID [facility] Last Admin: 07/25/25 08:00 Dose: 5 mg Heparin Sodium (Porcine) (Heparin Sodium,Porcine 5,000 Unit/Ml Vial) 5,000 unit SUBCUT Q12H [facility] Last Admin: 07/25/25 02:51 Dose: 5,000 unit Hydralazine HCl (Hydralazine Hcl 20 Mg/Ml Vial) 10 mg IVPUSH Q6H PRN; Protocol PRN Reason: SBP > 160 Last Admin: 07/23/25 10:35 Dose: 10 mg Hydroxyzine HCl (Hydroxyzine Hcl 25 Mg Tablet) 25 mg PO BID [facility] Last Admin: 07/25/25 08:00 Dose: 25 mg Levetiracetam (Keppra) 500 mg in 100 mls @ 400 mls/hr IV Q12H [facility] Last Infusion: 07/25/25 07:59 Dose: Infused Ceftriaxone Sodium 2 gm/ (Sodium Chloride) 50 mls @ 100 mls/hr IV Q24H [facility] Stop: 07/30/25 09:14 Last Infusion: 07/25/25 08:34 Dose: Infused Insulin Human Lispro (Insulin Lispro 100 Unit/Ml 3 Ml Vial) 0 unit SUBCUT QIDACHS [facility]; Protocol Last Admin: 07/25/25 12:27 Dose: 2 unit Levothyroxine Sodium (Levothyroxine Sodium 100 Mcg Tablet) 100 mcg PO DAILY@0600 [facility] Last Admin: 07/25/25 05:17 Dose: 100 mcg Ondansetron HCl (Ondansetron Hcl 4 Mg/2 Ml Vial) 4 mg IVPUSH Q8H PRN PRN Reason: Nausea and Vomiting Oxcarbazepine (Oxcarbazepine 150 Mg Tablet) 150 mg PO DAILY [facility] Last Admin: 07/25/25 08:00 Dose: 150 mg Oxcarbazepine (Oxcarbazepine 300 Mg Tablet) 300 mg PO BEDTIME [facility] Last Admin: 07/24/25 20:00 Dose: Not Given Allergies Allergies Allergy/AdvReac Type Severity Reaction Status Date / Time chlorpromazine Allergy Intermediate HIVES Verified 07/20/25 11:32 (CHLORPROMAZINE) Assessment & Plan Assessment & Plan (1) Acute metabolic encephalopathy: Status: Acute Code(s): G93.41 - Metabolic encephalopathy (2) Altered mental status: Status: Acute Code(s): R41.82 - Altered mental status, unspecified (3) Mood disorder: Status: Acute Code(s): F39 - Unspecified mood [affective] disorder (4) Unspecified dementia with behavioral disturbance: Status: Acute Code(s): F03.91 - Unspecified dementia, unspecified severity, with behavioral disturbance Plan 54 yo female, resident of [facility], to ER on 07/20 with elevated glucose and altered mental status. Pt has a history of TBI, Dementia, Seizure Disorder (using Keppra, Dilantin, Trileptal), SAH, DM, HTN, HLD, Hypothyroid. Psychiatric hx of mood disorder and anxiety. 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 Team found CT wnl, no sepsis, hypernatremia, MARIBEL, acute metabolic encephalopathy. Admitted medically for treatment as she presented in a catatonic like state in the ER and was not able to respond. On 07/23 team reports she told them she wanted to kill herself. Met with pt who is awake, in bed, having seen provider earlier and was not very talkative. She was soft-spoken with paucity. Discussed how she was feeling. She spoke of loss of eyesight tearfully. She reports she believes this has limited her quality of life after her visual loss and stated I cannot go, do as I want . She reports conflicts at [facility] due to how I am cleaned and wants to return there to continue to sort through this conflict. She reports pain-intermittent abdominal, and pain in her IV. She reports she has two children, one in [place] and one in [place] along with three grandchildren and a cousin in [place] whom she is looking foreward to visiting with. When asked about safety and her statement regarding being suicidal, she denies this, I would never leave my family. PLAN: Pt denies current SI Will contact [facility] Team on 07/26 to clarify hx for further intervention. Total time managing care of this patient today ____ minutes.
--- NOTE | 2025-07-25 13:40 | PC.NURSE ---
Per Psych, no need for 1:1 for si, will place camera for safety. Primary Rn notified. Clin Supp aware.
[2025-07-25 16:53] LABS: Glucose, Whole Blood 281 mg/dL (60-115)
[2025-07-25 20:32] LABS: Glucose, Whole Blood 249 mg/dL (60-115)
--- NOTE | 2025-07-26 01:27 | PC.NURSE ---
Pt calm and pleasant, but continues to refuse repositioning. This RN educated pt on importance of repositioning in regards to skin integrity. Pt still refusing.
--- NOTE | 2025-07-26 02:59 | PM.EVENT ---
Event Note Date of Service: 07/26/25 Event Note: Nursing reported PLTs 117, trending down with no obvious explanation (no splenomegaly on CT ABD 07/19, mild transaminits)...heparin SC currently held. Would not normally do so until less than 100K but taking precautions preventively. Low possibility for HIT noting dose of heparin. Pt is on oxcarbazepine and ITP is a 1.7% risk. Pt appears to have been on this medication for some time, will not hold at this time. DId order labs for AM for review by provider. Time Spent With Patient Time: Total time managing care of this patient today ____ minutes.
[2025-07-26 03:07] VITALS: BP 130/74; PULSE 62; RESP 18; TEMP 36.1; O2SAT 99
[2025-07-26 07:23] LABS: Glucose, Whole Blood 178 mg/dL (60-115)
[2025-07-26 07:36] VITALS: BP 168/75; PULSE 60; RESP 16; TEMP 36.2; O2SAT 100
[2025-07-26] MEDS: levETIRAcetam in NaCl (iso-os) 500 MG/100 ML PIGGYBACK 400 MG IV (07:39)
[2025-07-26 07:49] VITALS: BP 156/89
[2025-07-26 07:50] VITALS: PULSE 63
--- NOTE | 2025-07-26 08:34 | HO.PM.IMPN ---
Subjective Subjective Date of Service: 07/26/25 Interval History: Patient seen and examined at bedside this morning, patient more alert and oriented today, mentions that she is having difficulties with seeing which causes discomfort. Able to eat by herself and hold a conversation, improved from yesterday. Review of Systems Review of Systems: Yes all other systems are reviewed and are negative Physical Exam Exam: Exam: General: Alert, oriented x 2 Head: AT/NC ENT: Dry mucous membranes Neck: supple, right central line in place CVS; RRR, S1 S2 normal Lungs: Clear bilateral breath sounds, no wheezes or crackles Abd: Soft non tender, non distended Ext: No edema and no calf tenderness MSK: moving all 4 limbs Skin: No cyanosis or edema Psych: cooperative Neurology: following commands Vital Signs: Vital Signs: Last Vital Signs Temp 97.1 F 07/26/25 07:36 Pulse 63 07/26/25 07:50 Resp 16 07/26/25 07:36 BP 156/89 H 07/26/25 07:49 Pulse Ox 100 07/26/25 07:36 O2 Del Method Room Air 07/26/25 07:36 BMI result Body Mass Index 28.9 Objective Data Active Medications Acetaminophen (Acetaminophen 325 Mg Tablet) 650 mg PO Q6H PRN PRN Reason: Pain, Mild 1-3,fever,headache Benztropine Mesylate (Benztropine Mesylate 1 Mg Tablet) 1 mg PO BID [facility] Last Admin: 07/26/25 07:45 Dose: 1 mg Documented By: KASANDRA Dextrose (Dextrose 50 % 25 Gm/50 Ml Syringe) 25 gm IVPUSH Q15M PRN; Protocol PRN Reason: per Hypoglycemia Standing Ord. Glucose (Glucose Gel 15 Gm Gel..Gram.) 15 gm PO Q15M PRN; Protocol PRN Reason: per Hypoglycemia Standing Ord. Haloperidol (Haloperidol 5 Mg Tablet) 5 mg PO BID [facility] Last Admin: 07/26/25 07:46 Dose: 5 mg Documented By: KASANDRA Heparin Sodium (Porcine) (Heparin Sodium,Porcine 5,000 Unit/Ml Vial) 5,000 unit SUBCUT Q12H [facility] On Hold: 07/26/25 02:58 Last Admin: 07/25/25 15:55 Dose: 5,000 unit Documented By: LIANNA Hydralazine HCl (Hydralazine Hcl 20 Mg/Ml Vial) 10 mg IVPUSH Q6H PRN; Protocol PRN Reason: SBP > 160 Last Admin: 07/23/25 10:35 Dose: 10 mg Documented By: ODIN Hydroxyzine HCl (Hydroxyzine Hcl 25 Mg Tablet) 25 mg PO BID [facility] Last Admin: 07/26/25 07:45 Dose: 25 mg Documented By: KASANDRA Levetiracetam (Keppra) 500 mg in 100 mls @ 400 mls/hr IV Q12H [facility] Last Infusion: 07/26/25 07:54 Dose: Infused Documented By: KASANDRA Ceftriaxone Sodium 2 gm/ (Sodium Chloride) 50 mls @ 100 mls/hr IV Q24H [facility] Stop: 07/30/25 09:14 Last Infusion: 07/26/25 08:33 Dose: Infused Documented By: KASANDRA Insulin Human Lispro (Insulin Lispro 100 Unit/Ml 3 Ml Vial) 0 unit SUBCUT QIDACHS [facility]; Protocol Last Admin: 07/26/25 07:38 Dose: 2 unit Documented By: KASANDRA Levothyroxine Sodium (Levothyroxine Sodium 100 Mcg Tablet) 100 mcg PO DAILY@0600 [facility] Last Admin: 07/26/25 05:18 Dose: 100 mcg Documented By: ARRON Ondansetron HCl (Ondansetron Hcl 4 Mg/2 Ml Vial) 4 mg IVPUSH Q8H PRN PRN Reason: Nausea and Vomiting Oxcarbazepine (Oxcarbazepine 150 Mg Tablet) 150 mg PO DAILY [facility] Last Admin: 07/26/25 07:45 Dose: 150 mg Documented By: KASANDRA Oxcarbazepine (Oxcarbazepine 300 Mg Tablet) 300 mg PO BEDTIME [facility] Last Admin: 07/25/25 20:55 Dose: 300 mg Documented By: ARRON Labs 07/26/25 10:33 07/25/25 08:32 Labs: Laboratory Results - last 24 hr 07/25/25 07/25/25 07/25/25 08:32 11:48 16:50 MCV 89.7 MCH 28.3 MCHC 31.5 RDW 13.9 Plt Count 117 L MPV 9.9 Immature Gran % (Auto) 0.6 H Neut % (Auto) 69.5 Lymph % (Auto) 21.8 Long % (Auto) 6.9 Eos % (Auto) 1.0 Baso % (Auto) 0.2 Lymph # (Auto) 1.1 L Long # (Auto) 0.4 Eos # (Auto) 0.1 Baso # (Auto) 0.0 Abs Immat Gran (auto) 0.03 Absolute Neuts (auto) 3.5 Absolute Nucleated RBC 0.000 Nucleated RBC % (auto) 0.0 Anion Gap 9 L Estim Creat Clear Calc 78.5 Estimated GFR > 60 POC Glucose 189 H 281 H Random Glucose 230 H Calcium 8.2 L Phosphorus 2.9 Total Bilirubin 0.1 AST 64 H ALT 58 H Alkaline Phosphatase 132 H Total Protein 5.7 L Albumin 2.9 L 07/25/25 07/26/25 20:23 07:15 MCV MCH MCHC RDW Plt Count MPV Immature Gran % (Auto) Neut % (Auto) Lymph % (Auto) Long % (Auto) Eos % (Auto) Baso % (Auto) Lymph # (Auto) Long # (Auto) Eos # (Auto) Baso # (Auto) Abs Immat Gran (auto) Absolute Neuts (auto) Absolute Nucleated RBC Nucleated RBC % (auto) Anion Gap Estim Creat Clear Calc Estimated GFR POC Glucose 249 H 178 H Random Glucose Calcium Phosphorus Total Bilirubin AST ALT Alkaline Phosphatase Total Protein Albumin Microbiology Microbiology Results: Microbiology 07/20/25 14:41 Blood Culture - Final Blood - Venous No growth after 5 days. 07/20/25 12:36 Blood Culture - Final Blood - Venous No growth after 5 days. 07/22/25 13:11 Urine Culture - Final Urine clean catch - Clean Catch Midstream Escherichia coli Assessment and Plan (1) Acute metabolic encephalopathy: Status: Acute Plan Assessment: 54-year-old female with history of TBI, dementia, seizure disorder, SAH, GERD, T2 dm, HTN, HLD, hypothyroidism and recurrent UTIs who presented from [facility] for encephalopathy. On initial ED workup, with hyperglycemia, ketosis, hypernatremia and normal anion gap with normal bicarbonate. Patient treated with IV fluids, however persisted with elevated glucose, ketones, anion gap. Transferred to ICU on 07/22 for insulin drip for suspected DKA. Downgraded on 07/23, after being on insulin drip and receiving IV fluids. Toxic Metabolic encephalopathy, likely multifactorial, improved DKA, resolved after IVf given and insulin drip UTI with culture positive for E coli Labs and imaging reviewed continue insulin, regular diet Continue with rocephin for a total of 7 days w/ EoT 07/30 Nephrology following T2DM restart jardiance. Hold metformin SSI, continue Insulin Seizure disorder -Continue seizure medications -Neurology consulted MARIBEL on CKD3, resolved BUN:Cr > 20 , likely prerenal no longer on IVf and monitor U\O and BMP HLD, chronic statin mood disorder benztropine,haldol, hydroxyzine Psych consulted, continue per their recs Hypothyroid, chronic levothyroxine DVT PPx: Heparin Code status: Full code Total time managing care of this patient today: 55 minutes. Quality Stroke Does the patient have a stroke diagnosis?: No VTE Prior VTE?: No VTE Risk Level:: Medical - moderate - high VTE Device Contraindication: Treatment Not Indicated VTE Drug Contraindication: N/A - Med Ordered
--- NOTE | 2025-07-26 09:59 | HO.WOUND ---
Wound Consult: Initial 54 yr old female admitted to [facility] on 07/20/25- See progress notes and H&P for detailed history. Wound consult placed for coccyx. Patient agreeable to assessment and photo documentation. Patient with incontinence, care provided. Coccyx is intact, pink, blanchable - patient reports no pain - preventative measures in place, SIPP in place with preventative foam. Recommendations: 1. Turn and Reposition every 2 hours and as needed for patient comfort. Use pillows or wedges to support off loading positions. 2. Off Load all bony prominences with use of pillows and heel boots if needed. Apply Preventative foams where needed. 3. Monitor for incontinence and moisture control, use barrier creams when needed for prevention and treatment. 4. Provide adequate and supplemental nutrition. 5. Order or Continue low air loss mattress. 6. When applicable maintain blood glucose levels per Providers order. Re-consult wound care Nurse for wound deterioration or wound changes.
[2025-07-26 10:41] LABS: MANUAL DIFF FLAG NO
[2025-07-26 10:43] LABS: Hematocrit 29.8 % (37.0-47.0); Hemoglobin 9.7 g/dl (12.0-16.0); Imm Gran Abs Auto 0.02 X10*3/uL (0.00-0.03); Imm Gran Pct Auto 0.5 % (0.0-0.4); Lymphocytes Absolute Auto 1.1 X10*3/uL (1.2-4.9); Mean Corpuscular HGB Conc 32.6 g/dl (31.0-35.0); Mean Corpuscular Hemoglobin 28.7 pg (27.0-33.0); Mean Corpuscular Volume 88.2 fL (80.0-98.0); NRBC Abs Auto 0.000 X10*3/uL (0.0-0.012); NRBC Pct Auto 0.0 /100WBC (0.0-0.2); Platelet Count 149 X10*3/uL (160-400); Red Blood Count 3.38 X10*6/uL (4.20-5.50); White Blood Count 4.3 X10*3/uL (4.8-10.8)
[2025-07-26 10:59] LABS: Alanine Aminotransferase 60 U/L (0-31); Albumin Level 3.0 g/dL (3.5-5.0); Alkaline Phosphatase 123 U/L (39-117); Anion Gap 11 (12-20); Aspartate Amino Transferase 64 U/L (5-31); Blood Urea Nitrogen 14 mg/dL (9-16); Calcium 8.6 mg/dL (8.4-10.2); Carbon Dioxide 21 mmol/L (22-29); Chloride 110 mmol/L (96-108); Creatinine Clr Calc Pharmacy 85.9; Estimated Glomerular Filt Rate > 60; Potassium 3.8 mmol/L (3.3-5.1); Sodium 138 mmol/L (135-145); Total Protein 6.3 g/dL (6.5-8.0)
--- NOTE | 2025-07-26 11:19 | MHC.SLORD ---
Speech Language Pathology Order Status: Clinical bedside swallow evaluation ordered last week, pt catatonic and unable to be assessed. Pt currently on regular diet with thin liquid consistency. RN consulted, no concerns with pt PO tolerance of food, liquids or meds. [employer] to followup as indicated.
[2025-07-26 11:21] LABS: Glucose, Whole Blood 293 mg/dL (60-115)
--- NOTE | 2025-07-26 14:47 | MHC.SLORD ---
Speech Language Pathology Order Status: Swallow evaluation no longer needed, pt tolerating diet as ordered. RN consulted, MD notified.
--- NOTE | 2025-07-26 14:59 | MHC.CM.PN ---
PT NOT YET MEDICALLY CLEARED DCP WILL BE RETURN TO [facility] (RETURN REFERRAL MADE) BLS TRANSPORT
[2025-07-26 15:15] VITALS: BP 147/72; PULSE 74; RESP 16; TEMP 36.3; O2SAT 97
--- NOTE | 2025-07-26 15:15 | PC.NURSE ---
patient pulled out 2 of her IV VMT room was notified to pay closer attention,RN attempted to insert a new one unsuccessfully,patient refused IV insertion asked for po antibiotic,Dr. Aguiar notified
[2025-07-26 16:10] LABS: Glucose, Whole Blood 209 mg/dL (60-115)
[2025-07-26 19:30] VITALS: BP 138/67; PULSE 70; RESP 16; TEMP 36.3; O2SAT 100
[2025-07-26 19:30] LABS: Glucose, Whole Blood 179 mg/dL (60-115)
[2025-07-26] MEDS: Insulin Glargine,Hum.rec.anlog 100 UNIT/ML 10 ML VIAL 12 UNIT SUBCUT (21:17)
[2025-07-27 03:14] VITALS: BP 143/72; PULSE 70; RESP 18; TEMP 36.9; O2SAT 98
[2025-07-27 07:27] VITALS: BP 162/87; PULSE 76; RESP 18; TEMP 36.3; O2SAT 94
[2025-07-27 07:33] LABS: Glucose, Whole Blood 199 mg/dL (60-115)
[2025-07-27 11:35] LABS: Glucose, Whole Blood 253 mg/dL (60-115)
--- NOTE | 2025-07-27 13:02 | PM.DS ---
DS: Providers Provider Date of Service: 07/27/25 Date of admission: 07/20/25 14:51 Date of discharge: 07/27/25 Primary care physician: Roby Roth DO Consults: 07/21/25 08:18 Consult to Nephrology Routine Consulting Provider: [facility] Reason for consultation: hypernatremia and MARIBEL 07/21/25 09:12 Consult to Neurology Routine Consulting Provider: Gabbie Solis Reason for consultation: seizures Has provider been notified: No 07/24/25 10:25 Consult to Psychiatry Routine Consulting Provider: [facility] [place] [facility] Reason for consultation: mentions she wanted to kill herself yesterday, currently with sitter Has provider been notified: No 07/25/25 22:51 Consult to Wound Care Routine Consulting Provider: [facility] [place] [facility] Reason for consultation: blanchable redness to coccyx DS: Diagnosis Discharge Diagnosis (1) Acute metabolic encephalopathy: Status: Acute DS: Summary Hospital Course Hospital Course: 54-year-old female with history of TBI, dementia, seizure disorder, SAH, GERD, T2 dm, HTN, HLD, hypothyroidism and recurrent UTIs who presented from [facility] for encephalopathy. On initial ED workup, with hyperglycemia, ketosis, hypernatremia and normal anion gap with normal bicarbonate. Patient treated with IV fluids, however persisted with elevated glucose, ketones, anion gap. Transferred to ICU on 07/22 for insulin drip for suspected DKA. Downgraded on 07/23, after being on insulin drip and receiving IV fluids. Patient's mentation improved, able to tolerate p.o., on 07/26 patient removed her IV lines stating that she does not need them, agreed and taking p.o. antibiotic with urine culture positive for E coli sensitive to cephalosporins. Toxic Metabolic encephalopathy, likely multifactorial, resolved DKA, resolved after IVf given and insulin drip Hypernatremia, resolved recurrent UTI with culture positive for E coli Labs and imaging reviewed continue insulin, regular diet S/P rocephin, will transition to cefuroxime 250mg BID w/ EoT 07/30 T2DM restart and continue home medications Seizure disorder -Continue seizure medications MARIBEL on CKD3, resolved BUN:Cr > 20 , likely prerenal no longer on IVf and monitor U\O and BMP HLD, chronic statin mood disorder benztropine,haldol, hydroxyzine Hypothyroid, chronic levothyroxine Time Attestation Discharge Coordination Time (in mins): 35 minutes Quality: Safe Use of Opioids Does Pt have an Active Cancer Diagnosis on the Problem List?: No Quality: Stroke Does the patient have a stroke diagnosis?: No Physical Exam Exam: Exam: General: Alert, oriented x 2 Head: AT/NC ENT: Moist mucous membranes Neck: supple, right central line in place CVS; RRR, S1 S2 normal Lungs: Clear bilateral breath sounds, no wheezes or crackles Abd: Soft non tender, non distended Ext: No edema and no calf tenderness MSK: moving all 4 limbs Skin: No cyanosis or edema Psych: cooperative Neurology: following commands Vital Signs: Vital Signs: Last Vital Signs Temp 97.3 F 07/27/25 07:27 Pulse 76 07/27/25 07:27 Resp 18 07/27/25 07:27 BP 162/87 H 07/27/25 07:27 Pulse Ox 94 07/27/25 07:27 O2 Del Method Room Air 07/27/25 07:27 BMI result Body Mass Index 28.9 DS: Data Data Completed and Pending Completed studies during hospitalization [Text1]: Procedures Insertion of Infusion Device into Upper Vein, Percutaneous Approach (08/22/23) Labs on day of discharge: Laboratory Results - last 24 hr 07/26/25 07/26/25 07/27/25 16:03 19:09 07:27 POC Glucose 209 H 179 H 199 H 07/27/25 11:27 POC Glucose 253 H Discharge Plan Discharge Patient Disposition: Xfer [facility] Discharge Diagnosis: Toxic metabolic encephalopathy DKA Hypernatremia recurrent urinary tract infection Referrals: Roby Roth DO [Primary Care Provider, Hospitalist] - 1 Week Discharge Medications: New cefuroxime axetil 250 mg Tablet 250 mg PO Q12H 3 Days Qty: 6 0RF Continued oxcarbazepine [Trileptal] 150 mg Tablet 150 mg PO DAILY sennosides [senna] 8.6 mg Tablet 8.6 mg PO DAILY PRN (Reason: Constipation) acetaminophen 325 mg Tablet 650 mg PO Q12H PRN (Reason: Fever Or Pain) gabapentin 600 mg Tablet 600 mg PO TID haloperidol 5 mg Tablet 5 mg PO BID atorvastatin 10 mg Tablet 10 mg PO BEDTIME oxcarbazepine [Trileptal] 300 mg Tablet 300 mg PO BEDTIME guaifenesin 100 mg/5 mL Liquid 200 mg PO Q4H PRN (Reason: Cough) insulin aspart U-100 [Novolog U-100 Insulin aspart] 100 unit/mL Solution 1 sliding scale dose SUBCUT TIDAC Protocol: Insulin Correction Scale Less than or equal to 110 ---- Give (units): 0 111 to 150 Give (units): 0 151 to 200 Give (units): 2 201 to 250 Give (units): 4 251 to 300 Give (units): 6 301 to 350 Give (units): 8 Greater than 350 Give (units): 10 Call MD if Blood Glucose > : 350 metformin 1,000 mg Tablet 1,000 mg PO BID haloperidol 10 mg Tablet 10 mg PO BID benztropine 1 mg Tablet 1 mg PO BID Fleet Enema 19-7 gram/118 mL Enema 118 ml NM DAILY PRN (Reason: Constipation, if bisacodyl ineffective) docusate sodium 100 mg Capsule 100 mg PO BID hydroxyzine HCl 25 mg Tablet 25 mg PO BID ibuprofen 600 mg Tablet 600 mg PO Q8H PRN (Reason: Moderate Pain (Scale Score 5-6)) levetiracetam 1,000 mg Tablet 1,000 mg PO BID calcium carbonate-vitamin D3 [Calcium 600 + D(3)] 600 mg-10 mcg (400 unit) Tablet 1 tab PO BID cholecalciferol (vitamin D3) 1,250 mcg (50,000 unit) Capsule 1,250 mcg PO MO@0900 phenytoin 50 mg Tablet,Chewable 100 mg PO DAILY cranberry 450 mg Tablet 450 mg PO DAILY Rx Instructions: administer with a meal insulin glargine [Lantus Solostar U-100 Insulin] 100 unit/mL (3 mL) insulin pen 12 unit SUBCUT BEDTIME Rx Instructions: HOLD IF DINNER NOT CONSUMED levothyroxine [Synthroid] 100 mcg Tablet 100 mcg PO DAILY@0600 Qty: 30 0RF multivitamin Tablet 1 tab PO DAILY sennosides 8.6 mg Tablet 8.6 mg PO BID benztropine 0.5 mg Tablet 0.5 mg PO BID phenytoin 50 mg Tablet,Chewable 150 mg PO BEDTIME tramadol 50 mg Tablet 50 mg PO TID levothyroxine 75 mcg Tablet 75 mcg PO DAILY@0600 oxycodone-acetaminophen [Percocet] 5-325 mg Tablet 1 tab PO Q6H PRN (Reason: moderate knee pain) ascorbic acid (vitamin C) 500 mg Tablet 500 mg PO DAILY Jardiance 25 mg Tablet 25 mg PO DAILY naloxone [Narcan] 4 mg/actuation [place],Non-Aerosol 4 mg INTRANASAL Q3M PRN (Reason: suspected opioid overdose) Rx Instructions: spray 1 dose into ONE nostril; alternate nostrils w each dose until help arrives glucagon HCl 1 mg Recon Soln 1 mg SUBCUT Q15M MDD 2 PRN (Reason: target blood sugar attained) Rx Instructions: until target blood sugar attained ferrous sulfate 325 mg (65 mg iron) Tablet 325 mg PO DAILY Discharge Orders: Discharge Order (Routine); Ordered 07/27/25 Ordered By: Gopi Cabrera Activity on Discharge: As tolerated Stand Alone Forms: Patient Portal Discharge page Print Language: [place] Irish Care Plan Goals: Continue with antibiotics for urinary tract infection Monitor BMP Health Concerns: Toxic metabolic encephalopathy Diabetic ketoacidosis Hypernatremia Urinary tract infection Plan of Treatment: Continue with antibiotic for recurrent urinary tract infection Monitor BMP for DKA and recent MARIBEL. Assessment: 54-year-old female with history of TBI, dementia, seizure disorder, SAH, GERD, T2 dm, HTN, HLD, hypothyroidism and recurrent UTIs who presented from [facility] for encephalopathy. On initial ED workup, with hyperglycemia, ketosis, hypernatremia and normal anion gap with normal bicarbonate. Patient treated with IV fluids, however persisted with elevated glucose, ketones, anion gap. Transferred to ICU on 07/22 for insulin drip for suspected DKA. Downgraded on 07/23, after being on insulin drip and receiving IV fluids. Patient's mentation improved, able to tolerate p.o., on 07/26 patient removed her IV lines stating that she does not need them, agreed and taking p.o. antibiotic with urine culture positive for E coli sensitive to cephalosporins.
--- NOTE | 2025-07-27 13:18 | MHC.CM.PN ---
DP: PT HAS BEEN MEDICALLY CLEARED FOR DC BACK TO [facility] FOR RESUMPTION OF LTC. FACILITY WILL P/U VIA VAN AT 2: 45 PM. RN NOTIFIED AND HCP JOHN UPDATED.
[2025-07-27 14:34] VITALS: BP 145/82; PULSE 81; RESP 18; TEMP 36.1; O2SAT 100
--- NOTE | 2025-08-20 12:32 | P.CDIM_ITS ---
PROVIDER RESPONSE TEXT: To clarify, the appropriate diagnosis supported by the clinical indicators: DKA was not present on admission QUERY TEXT: PHYSICIAN'S DOCUMENTATION REQUEST Date of Query: 08/20/2025 12:16 PM EST Patient Name: Katelyn Peralta Admit Date: 07/20/2025 Dear Gopi Cabrera MD, RETROSPECTIVE QUERY A review of the medical record indicates additional documentation may be needed. Please review below and update the documentation accordingly. Clinical Indicators: ED 07/20/25 - Patient from [place] with elevated blood sugar, hyperglycemia with no indication of DKA. Normal anion gas and bicarb with slight elevation of hydroxybutyric acid. Progress notes 07/21/25: T2DM , hold Jardiance and Metformin. Nephrology to consider DKA. Blood sugars are 300's and 400's. Progress note 07/22/25 - Patient's sodium increasing as well as creatinine. Beta hydroxybutyrate elevated. ICU for insulin drip and monitoring. ICU progress note 07/23/25 - DKA: Ketoacidosis possibly due to combination of starvation ketoacidosis and DKA. Continue Insulin drip along with D5 water. Progress note 07/24/25 - DKA resolved after IVF given and insulin drip. D/S 07/27/25 - Workup hyperglycemia, ketosis, hypernatremia and normal anion gap with normal bicarbonate, however persisted with elevated glucose, ketones and anion gap. Suspected DKA. Please clarify based on the above if: DKA was present on admission DKA was not present on admission Other (explain) Clinically unable to determine (explain) Thank you, Vickie Rainey, CCS, CDIS Use of terms such as suspected, likely, concern for, or probable (associated with a specific diagnosis that is being evaluated, monitored, or treated as if it exists) are acceptable and can be coded in the inpatient setting, when documented at the time of discharge. Please use your independent medical judgment in providing your response. THIS QUERY IS PART OF THE PERMANENT MEDICAL RECORD
== END 2025-07-27 15:20 | DRG 426 ==
LOC: HO.ED 11:59 → HO.EDOVER 14:57 → HO.IMC 22:06 → HO.ICU 07-22 15:24 → HO.IMC 07-23 19:38 → HO.S3 07-25 10:26
PROVIDERS: Hospitalist; Internal Medicine Critical Care Medicine; Nurse Practitioner Family; Physician Assistant; Physician Assistant Medical; Admitting Provider Student in an Organized Health Care Education/Training Program; Emergency Provider Emergency Medicine; PCP Hospitalist; Visit Provider Student in an Organized Health Care Education/Training Program
DX: E87.0 Hyperosmolality and hypernatremia (principal); G92.8 Other toxic encephalopathy; N17.9 Acute kidney failure, unspecified; E87.20 Acidosis, unspecified; F03.918 Unspecified dementia, unspecified severity, with other behavioral disturbance; N39.0 Urinary tract infection, site not specified; R45.851 Suicidal ideations; E11.22 Type 2 diabetes mellitus with diabetic chronic kidney disease; B96.20 Unspecified Escherichia coli [E. coli] as the cause of diseases classified elsewhere; E11.10 Type 2 diabetes mellitus with ketoacidosis without coma; N18.30 Chronic kidney disease, stage 3 unspecified; G40.909 Epilepsy, unspecified, not intractable, without status epilepticus; E03.9 Hypothyroidism, unspecified; E78.5 Hyperlipidemia, unspecified; F39 Unspecified mood [affective] disorder; Z20.822 Contact with and (suspected) exposure to COVID-19; Z79.4 Long term (current) use of insulin; Z79.84 Long term (current) use of oral hypoglycemic drugs; Z87.440 Personal history of urinary (tract) infections; Z79.890 Hormone replacement therapy; Z79.899 Other long term (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
CPT/HCPCS: 36415; 70450; 71045; 73060; 80048; 80053; 80076; 80177; 80185; 80307; 81001; 81003; 82010; 82140; 82550; 82803; 82947; 83605; 83690; 83735; 83935; 84100; 84300; 84443; 84484; 85025; 85027; 85610; 87040; 87086; 87088; 87186; 87637; 93005; 93971; 95816; 99285; J0360; J0696; J1165; J1644; J1953; J7120

== ENCOUNTER → 2025-07-20 11:26 | Outpatient (BNV) | payer MEDICAID, SELFPAY | PROVIDERS: Emergency Provider Emergency Medicine; PCP Hospitalist; Visit Provider Radiology Diagnostic Radiology | DX: R41.82 Altered mental status, unspecified (principal) | CPT/HCPCS: 70450; 71045 ==

== ENCOUNTER → 2025-07-20 11:26 | Outpatient (BNV) | payer MEDICAID, SELFPAY | PROVIDERS: Admitting Provider Student in an Organized Health Care Education/Training Program; Emergency Provider Emergency Medicine; PCP Hospitalist; Visit Provider Internal Medicine | DX: R00.0 Tachycardia, unspecified (principal); I51.7 Cardiomegaly | CPT/HCPCS: 93010 ==

== ENCOUNTER 2025-07-20 14:51 | Outpatient (BNV) | payer MEDICAID, SELFPAY | END 2025-07-23 01:20 | PROVIDERS: Admitting Provider Student in an Organized Health Care Education/Training Program; Emergency Provider Emergency Medicine; PCP Hospitalist; Visit Provider Radiology Diagnostic Radiology | DX: R22.32 Localized swelling, mass and lump, left upper limb (principal); Z45.2 Encounter for adjustment and management of vascular access device | CPT/HCPCS: 71045; 93971 ==

== ENCOUNTER 2025-07-20 14:51 | Outpatient (BNV) | payer MEDICAID, SELFPAY | END 2025-07-20 15:00 | PROVIDERS: Admitting Provider Student in an Organized Health Care Education/Training Program; Emergency Provider Emergency Medicine; PCP Hospitalist; Visit Provider Psychiatry & Neurology Neurology | DX: R94.01 Abnormal electroencephalogram [EEG] (principal); G93.89 Other specified disorders of brain | CPT/HCPCS: 95816 ==

== ENCOUNTER 2025-07-20 14:51 | Outpatient (BNV) | payer MEDICAID, SELFPAY | END 2025-07-22 17:50 | PROVIDERS: Admitting Provider Student in an Organized Health Care Education/Training Program; Emergency Provider Emergency Medicine; PCP Hospitalist; Visit Provider Radiology Diagnostic Radiology | DX: S42.302D Unspecified fracture of shaft of humerus, left arm, subsequent encounter for fracture with routine healing (principal) | CPT/HCPCS: 73060 ==

== ENCOUNTER 2025-07-20 14:51 | Outpatient (BNV) | payer MEDICAID, SELFPAY | END 2025-07-24 11:26 | PROVIDERS: Admitting Provider Student in an Organized Health Care Education/Training Program; Emergency Provider Emergency Medicine; PCP Hospitalist; Visit Provider Nuclear Medicine | DX: R53.83 Other fatigue (principal) | CPT/HCPCS: 70450 ==

== ENCOUNTER → 2025-07-20 14:51 | Outpatient (BNV) | payer MEDICAID, SELFPAY | PROVIDERS: Admitting Provider Student in an Organized Health Care Education/Training Program; Emergency Provider Emergency Medicine; PCP Hospitalist; Visit Provider Internal Medicine Critical Care Medicine | DX: E87.0 Hyperosmolality and hypernatremia (principal); N17.9 Acute kidney failure, unspecified | CPT/HCPCS: 36556; 99223; 99232; 99291 ==

== ENCOUNTER → 2025-07-20 14:51 | Outpatient (BNV) | payer MEDICAID, SELFPAY | PROVIDERS: Admitting Provider Student in an Organized Health Care Education/Training Program; Emergency Provider Emergency Medicine; PCP Hospitalist; Visit Provider Nurse Practitioner | DX: R41.82 Altered mental status, unspecified (principal) | CPT/HCPCS: 99222 ==

== ENCOUNTER → 2025-07-20 14:51 | Outpatient (BNV) | payer MEDICAID, SELFPAY | PROVIDERS: Admitting Provider Student in an Organized Health Care Education/Training Program; Emergency Provider Emergency Medicine; PCP Hospitalist; Visit Provider Student in an Organized Health Care Education/Training Program | DX: G40.909 Epilepsy, unspecified, not intractable, without status epilepticus (principal); N17.9 Acute kidney failure, unspecified; G93.41 Metabolic encephalopathy; E87.0 Hyperosmolality and hypernatremia | CPT/HCPCS: 99222; 99233; 99499 ==

== ENCOUNTER → 2025-07-20 14:51 | Outpatient (BNV) | payer MEDICAID, SELFPAY | PROVIDERS: Admitting Provider Student in an Organized Health Care Education/Training Program; Emergency Provider Emergency Medicine; PCP Hospitalist; Visit Provider Clinical Nurse Specialist Psychiatric/Mental Health, Adult | DX: F03.918 Unspecified dementia, unspecified severity, with other behavioral disturbance (principal); F39 Unspecified mood [affective] disorder; G93.41 Metabolic encephalopathy; R41.82 Altered mental status, unspecified | CPT/HCPCS: 99222 ==